=== PATIENT | male | born 1940 | race Caucasian/White ===

== ENCOUNTER 2020-05-27 18:20 | Inpatient (IN) | payer MEDICARE, MEDICAID ==
[~2020-05-27] VITALS: Ht 175.3 cm; Wt 70.2 kg
[2020-05-27] MEDS ORDERED: IRBE300T23 PO (20:57)
[2020-05-27] MEDS ORDERED: QUET25TA5 PO (20:57)
[2020-05-27] MEDS ORDERED: MELA3TAB4 PO (20:57)
[2020-05-27] MEDS ORDERED: THIA100T57 PO (20:57)
[2020-05-27] MEDS ORDERED: FOLI0.8C PO (20:57)
[2020-05-27] MEDS ORDERED: MULT-735 PO (20:57)
[2020-05-27] MEDS ORDERED: HALO1TAB PO (20:57)
[2020-05-27] MEDS ORDERED: METO50TA6 PO (20:57)
[2020-05-27] MEDS ORDERED: MAG HYDROX/AL HYDROX/SIMETH 30 ML ORAL.SUSP PO PRN (22:30)
[2020-05-27] MEDS ORDERED: MAGNESIUM HYDROXIDE 2,400 MG/30 ML ORAL.SUSP. PO PRN (22:30)
[2020-05-27] MEDS ORDERED: ACETAMINOPHEN 325 MG TABLET PO PRN (22:30)
[2020-05-27] MEDS ORDERED: METHYL SALICYLATE/MENTHOL TOPICAL OINTMENT 57GM TUBE. TP PRN (22:30)
[2020-05-27 22:31] VITALS: BP 147/76
--- NOTE | 2020-05-27 22:47 | PDOC ---
Exam Note: Taurus Note: Please also refer to the separate dictated note~for this date of service dictated separately.~Patient seen individually. Discussed the patient with Nursing staff reviewed the chart.~Reviewed interim history and current functioning. Reviewed vital signs,~Labs/ Radiology~and current medications noted below. Continue current treatment with the changes noted in the dictated addendum note Assessment: Vital Signs/I&O: Vital Signs Date Time Temp Pulse Resp B/P (MAP) Pulse Ox O2 Delivery O2 Flow Rate FiO2 05/27/20 22:31 98.5 75 20 147/76 (99) 100 Current Medications: I have reviewed the current psychotropics carefully including drug interactions. Risk benefit ratio favors no change other than as noted in my dictated progress note. TL SAMUEL MD May 27, 2020 22:47
--- NOTE | 2020-05-27 23:11 | NUR ---
Admission Note with Justification for Admission to [facility] Patient admitted to [facility] for protective oversight for emergency stabilization of acute psychiatric crisis. Pt admitted from: [facility] Mode of arrival: Secure Transport Accompanied By: Secure Transport Precipitating behaviors that initiated intake and admission: Pt admitted to [facility] on 05/11 for rhabdo, delirium and DT's (60 yrs of ETOH). Pt sent to [facility] and was there for less than 24hrs d/t combative behaviors. Pt sent back to [facility] on 05/26 where he refused meds, cares, etc. Description of failure of out patient attempts at stabilization in previous setting list behavior and medication trials: multiple PRNs Behaviors and assessment findings upon admission: Pt sedated upon arrival. Pt was given Haldol and Ativan before transport. Plan: Admit for protective oversight for adjustment and stabilization of medications, behaviors and mood. Intense treatment regimen including groups, medication adjustments, therapy, consistent regimen for ADL's, self care, and sleep hygiene. Daily monitoring by Inpatient staff, Psychiatry, and Medical Physician.
[2020-05-27] MEDS ORDERED: HALOPERIDOL 1 MG TABLET PO PRN (23:15)
[2020-05-28 06:35] VITALS: BP 169/80
[2020-05-28] MEDS: METOPROLOL TART IMMED RELEASE 50 MG TABLET PO SCH ×2 (07:54→20:42)
[2020-05-28] MEDS: MULTIVITAMIN with MINERAL TABLET. PO SCH ×2 (07:55→08:55)
[2020-05-28] MEDS: FOLIC ACID 1 MG TABLET PO SCH (07:55)
[2020-05-28] MEDS: THIAMINE 100 MG TABLET. PO SCH (07:55)
[2020-05-28] MEDS: LOSARTAN 50 MG TABLET. PO SCH (07:55)
--- NOTE | 2020-05-28 10:48 | NUR ---
Pt irritable and awake at breakfast. Ate very little. Spoke at length about being able to care for self at home. Pt feels if he could have a family meeting, he could convey that. Pt took am meds with encouragement. Tolerated blood draw.
[2020-05-28 10:49] LABS: BASO % 1 % (0-3); EOS # 0.1 x10^3/uL (0.0-0.7); EOS % 2 % (0-3); HEMATOCRIT 29.8 % (39.0-53.0); LYMPH # 0.2 x10^3/uL (1.0-4.8); LYMPH % 6 % (24-48); MEAN CORPUSCULAR HEMOGLOBIN 32 pg (25-35); MEAN CORPUSCULAR HGB CONC 34 g/dL (31-37); MEAN CORPUSCULAR VOLUME 96 fL (79-100); MONO # 0.4 x10^3/uL (0.0-1.1); MONO % 10 % (0-9); NEUT # 3.3 x10^3uL (1.8-7.7); NEUT % 81 % (31-73); PLATELET COUNT 204 x10^3/uL (140-400); RED CELL DISTRIBUTION WIDTH 15.3 % (11.5-14.5)
[2020-05-28 11:14] LABS: ALBUMIN 2.4 g/dL (3.4-5.0); ALBUMIN/GLOBULIN RATIO 0.6 (1.0-1.7); CALCIUM 8.9 mg/dL (8.5-10.1); CREATININE 1.1 mg/dL (0.7-1.3); GFR 64.2; MAGNESIUM 1.6 mg/dL (1.8-2.4); POTASSIUM 3.3 mmol/L (3.5-5.1); TOTAL PROTEIN 6.6 g/dL (6.4-8.2)
--- NOTE | 2020-05-28 13:26 | CONS ---
DATE OF CONSULTATION: 05/28/2020 REASON FOR CONSULTATION: Medical management. HISTORY OF PRESENT ILLNESS: The patient is an 79-year-old male patient who was admitted to hospital in [facility] through the Emergency Department by wheelchair and from a local [facility] for staff reported him to be extremely agitated, aggressive, and noncompliant. He refused to take his medication, refused to allow them to do vitals, and the patient was placed there a day before admission specifically on 05/25/2020 after hospital stay from 05/14/2020 to 05/25/2020 and prior to being sent to a Skilled Unit, 2 physicians have deemed him to be incapable of making his own decision. He has no complaint at the time of arrival there. He was admitted and was from there transferred [facility] for inpatient psychiatric stabilization, and he is very confused and profoundly demented. Apparently, he has been drinking alcohol for almost 60 years. PAST MEDICAL HISTORY: Significant for hypertension, hyperlipidemia, paroxysmal atrial fibrillation, complete heart block, status post permanent pacemaker. He has aortic stenosis and chronic diastolic congestive heart failure, gastroesophageal reflux disease, prostate cancer and alcohol abuse. PAST SURGICAL HISTORY: Significant for hernia repair and placement of radiation seeds in his prostate for prostate cancer, automatic implantable cardioverter defibrillator placement of [employer] variety on 10/04/2014. He underwent cardiac catheterization, mesenteric arteriogram, left cardiac catheterization and ERCP. FAMILY HISTORY: Positive for cancer in his father. SOCIAL HISTORY: He apparently was living alone. He does not smoke cigarettes; however, he is a heavy alcohol drinker for 60 years. ALLERGIES: He has no known drug allergies. MEDICATIONS: He is currently on following medications: He is on metoprolol tartrate 50 mg twice a day, irbesartan 300 mg once a day, haloperidol 1 mg twice a day as needed, quetiapine fumarate 25 mg at bedtime, folic acid 800 mcg once a day, thiamine 100 mg once a day, multivitamin 1 tablet once a day, and melatonin 6 mg at bedtime. REVIEW OF SYSTEMS: As per history of present illness. PHYSICAL EXAMINATION GENERAL: When I saw him this afternoon, he was resting slightly propped up in bed, in no apparent respiratory distress. He was pale, but no jaundice, cyanosis or thyromegaly. No jugular venous distention. No limb edema. VITAL SIGNS: His heart rate was 78, blood pressure was 169/80, temperature was 97.5, respiratory rate was 18 and his oxygen saturation was 99% on room air. HEAD, EYES, EARS, NOSE AND THROAT: Normocephalic, atraumatic. NECK: Supple. HEART: Showed normal first and second heart sounds. No gallop, rub. He has harsh systolic murmurs best heard in the second right intercostal space radiating to the neck. CHEST: Clear to auscultation. No crepitation or rhonchi. ABDOMEN: Distended, soft, nontender. NEUROLOGIC: He is awake, alert, but definitely confused. All his cranial nerves are intact. He moves all extremities spontaneously, although apparently he is wheelchair bound, although apparently he has been able to use a walker. He was not seen yet by our physical therapist. ASSESSMENT: In summary, this is an 79-year-old male patient who was admitted to [facility] in [place], [place] with acute encephalopathy, delirium versus dementia, alcohol abuse and was transferred to our facility for inpatient psychiatric stabilization. His COVID test was negative. He has multiple other medical problems including: A. Essential hypertension. B. Dyslipidemia. C. Paroxysmal atrial fibrillation. D. Complete heart block, status post permanent pacemaker. E. Aortic stenosis. F. Chronic diastolic congestive heart failure. G. Gastroesophageal reflux disease. H. Prostate cancer. LABORATORY DATA: Showed his white cell count was 4000, hemoglobin 10, hematocrit 30, MCV 96, and platelet count 204,000 with normal manual differential. His chemistry showed a serum sodium 141, potassium 3.3, chloride 107, bicarbonate 23, anion gap of 11, BUN 12, creatinine 1.1, estimated GFR was 64 mL per minute, his glucose 132, calcium was 8.9, magnesium was 1.6. Total bilirubin, AST, ALT, alkaline phosphatase were normal. Total protein was 6.6, albumin was 2.4. The patient obviously showed that his blood pressure is somewhat elevated. He has hypokalemia and hypomagnesemia. PLAN: My plan is to start him on potassium supplement as well as magnesium supplement. I will obviously monitor his blood pressure for at least another 24-48 hours and we could actually add other medication to have a better control of his blood pressure if he continues to be hypertensive. Thank you, Dr. Hauser, for allowing me to participate in the care of this patient. CHANTALE FRERELL MD DR: BHAVIN/teo JOB#: [id number] / [id number]
[2020-05-28] MEDS: MAGNESIUM OXIDE 400 MG TABLET PO SCH ×3 (14:00→21:00)
--- NOTE | 2020-05-28 15:43 | NUR ---
Pt straight cathed for urine sample as he has not been able to void. Some resistance noted. Pt tolerated well.
[2020-05-28 15:55] VITALS: BP 160/83
[2020-05-28 15:56] LABS: BACTERIA,URINE FEW /HPF (0-FEW); BILIRUBIN,URINE NEG (NEG); CLARITY,URINE HAZY; COLOR,URINE YELLOW; GLUCOSE,URINE NEG (NEG); NITRITE,URINE NEG (NEG); SQUAMOUS EPITHELIAL CELL,UR OCC /LPF; UROBILINOGEN,URINE 0.2 mg/dL (0.2 mg/dL); WBC,URINE >40 /HPF (0-4); YEAST,URINE PRESENT /HPF
[2020-05-28 19:29] LABS: THYROID STIM HORMONE (TSH) 3.692 uIU/mL (0.358-3.740)
[2020-05-28] MEDS: MELATONIN 3 MG TABLET PO SCH ×2 (20:43→21:00)
[2020-05-28] MEDS: QUEtiapine 25 MG TABLET. PO SCH ×2 (20:43→21:00)
[2020-05-28] MEDS: POTASSIUM CHLORIDE 20 MEQ TABLET.ER. PO SCH ×2 (20:45→21:00)
--- NOTE | 2020-05-28 22:01 | PDOC ---
Exam Note: Taurus Note: Please also refer to the separate dictated note~for this date of service dictated separately.~Patient seen individually. Discussed the patient with Nursing staff reviewed the chart.~Reviewed interim history and current functioning. Reviewed vital signs,~Labs/ Radiology~and current medications noted below. Continue current treatment with the changes noted in the dictated addendum note Assessment: Vital Signs/I&O: Vital Signs Date Time Temp Pulse Resp B/P (MAP) Pulse Ox O2 Delivery O2 Flow Rate FiO2 05/28/20 20:42 68 160/83 05/28/20 15:55 97.7 18 99 Room Air I & O 05/27/20 05/27/20 05/28/20 15:00 23:00 07:00 Intake Total 0 ml Balance 0 ml Labs: Laboratory Tests Test 05/28/20 10:00 05/28/20 15:30 White Blood Count 4.0 x10^3/uL (4.0-11.0) Red Blood Count 3.10 x10^6/uL (4.30-5.70) L Hemoglobin 10.0 g/dL (13.0-17.5) L Hematocrit 29.8 % (39.0-53.0) L Mean Corpuscular Volume 96 fL (79-100) Mean Corpuscular Hemoglobin 32 pg (25-35) Mean Corpuscular Hemoglobin Concent 34 g/dL (31-37) Red Cell Distribution Width 15.3 % (11.5-14.5) H Platelet Count 204 x10^3/uL (140-400) Neutrophils (%) (Auto) 81 % (31-73) H Lymphocytes (%) (Auto) 6 % (24-48) L Monocytes (%) (Auto) 10 % (0-9) H Eosinophils (%) (Auto) 2 % (0-3) Basophils (%) (Auto) 1 % (0-3) Neutrophils # (Auto) 3.3 x10^3uL (1.8-7.7) Lymphocytes # (Auto) 0.2 x10^3/uL (1.0-4.8) L Monocytes # (Auto) 0.4 x10^3/uL (0.0-1.1) Eosinophils # (Auto) 0.1 x10^3/uL (0.0-0.7) Basophils # (Auto) 0.0 x10^3/uL (0.0-0.2) Sodium Level 141 mmol/L (136-145) Potassium Level 3.3 mmol/L (3.5-5.1) L Chloride Level 107 mmol/L (98-107) Carbon Dioxide Level 23 mmol/L (21-32) Anion Gap 11 (6-14) Blood Urea Nitrogen 12 mg/dL (8-26) Creatinine 1.1 mg/dL (0.7-1.3) Estimated GFR (Cockcroft-Gault) 64.2 BUN/Creatinine Ratio 11 (6-20) Glucose Level 132 mg/dL (70-99) H Calcium Level 8.9 mg/dL (8.5-10.1) Magnesium Level 1.6 mg/dL (1.8-2.4) L Iron Level 30 ug/dL (65-175) L Total Iron Binding Capacity 215 ug/dL (250-450) L Iron Saturation 14 % (15-34) L Total Bilirubin 1.0 mg/dL (0.2-1.0) Aspartate Amino Transferase (AST) 21 U/L (15-37) Alanine Aminotransferase (ALT) 12 U/L (16-63) L Alkaline Phosphatase 68 U/L (46-116) Total Protein 6.6 g/dL (6.4-8.2) Albumin 2.4 g/dL (3.4-5.0) L Albumin/Globulin Ratio 0.6 (1.0-1.7) L Triglycerides Level 87 mg/dL (0-150) Cholesterol Level 173 mg/dL (0-200) LDL Cholesterol, Calculated 110 mg/dL (0-100) H VLDL Cholesterol, Calculated 17 mg/dL (0-40) Non-HDL Cholesterol Calculated 127 mg/dL (0-129) HDL Cholesterol 46 mg/dL (40-60) Cholesterol/HDL Ratio 3.0 Thyroid Stimulating Hormone (TSH) 3.692 uIU/mL (0.358-3.740) Urine Collection Type U cath Urine Color Yellow Urine Clarity Hazy Urine pH 7.0 Urine Specific [place] 1.020 Urine Protein Trace (NEG-TRACE) Urine Glucose (UA) Neg mg/dL (NEG) Urine Ketones (Stick) Neg mg/dL (NEG) Urine Blood Neg (NEG) Urine Nitrite Neg (NEG) Urine Bilirubin Neg (NEG) Urine Urobilinogen Dipstick 0.2 mg/dL (0.2 mg/dL) Urine Leukocyte Esterase Trace (NEG) Urine RBC 1-2 /HPF (0-2) Urine WBC >40 /HPF (0-4) Urine Squamous Epithelial Cells Occ /LPF Urine Bacteria Few /HPF (0-FEW) Urine Yeast Present /HPF Current Medications: Meds: Current Medications Medications (Trade) Dose Ordered Sig/Lit Route PRN Reason Start Time Stop Time Status Last Admin Dose Admin Haloperidol (Haldol) 1 mg PRN BID PRN PO ANXIETY / AGITATION 05/27/20 23:15 05/28/20 18:30 DC 05/28/20 09:15 Melatonin (Melatonin) 6 mg QHS PO 05/28/20 21:00 05/28/20 20:43 Metoprolol Tartrate (Lopressor) 50 mg BID PO 05/28/20 09:00 05/28/20 20:42 Quetiapine Fumarate (SEROquel) 25 mg QHS PO 05/28/20 21:00 05/28/20 20:43 Folic Acid (Folic Acid) 1 mg DAILY PO 05/28/20 09:00 05/28/20 07:55 Losartan Potassium (Cozaar) 100 mg DAILY PO 05/28/20 09:00 05/28/20 07:55 Thiamine HCl (Vitamin B-1) 100 mg DAILY PO 05/28/20 09:00 05/28/20 07:55 Potassium Chloride (Klor-Con) 20 meq BID PO 05/28/20 21:00 05/28/20 20:45 Magnesium Oxide (Magnesium Oxide) 400 mg TID PO 05/28/20 14:00 05/28/20 20:42 I have reviewed the current psychotropics carefully including drug interactions. Risk benefit ratio favors no change other than as noted in my dictated progress note. TL SAMUEL MD May 28, 2020 22:01
--- NOTE | 2020-05-28 23:01 | NUR ---
Nursing Note The patient was located in his room laying in bed for his assessment and medication pass. The patient was resistive with his medication and argumentative during his assessment. The patient displayed difficulty following conversations while talking with this nurse resulting in agitation and confusion. The patient refused several of his medications this shift. The patient is currently asleep laying in his bed.
[2020-05-29 04:06] LABS: HEMOGLOBIN A1C 4.5 % (4.8-5.6)
[2020-05-29 06:40] VITALS: BP 158/89
[2020-05-29 09:00] LABS: CALCIUM 9.3 mg/dL (8.5-10.1); GFR 71.7; POTASSIUM 3.2 mmol/L (3.5-5.1)
[2020-05-29] MEDS: MAGNESIUM OXIDE 400 MG TABLET PO SCH ×3 (09:00→20:50)
[2020-05-29] MEDS: MULTIVITAMIN with MINERAL TABLET. PO SCH (09:00)
[2020-05-29 09:07] LABS: THYROXINE 6.1 ug/dL (4.5-12.0)
[2020-05-29] MEDS: FOLIC ACID 1 MG TABLET PO SCH (09:40)
[2020-05-29] MEDS: POTASSIUM CHLORIDE 20 MEQ TABLET.ER. PO SCH ×3 (09:40→20:50)
[2020-05-29] MEDS: LOSARTAN 50 MG TABLET. PO SCH (09:40)
[2020-05-29] MEDS: THIAMINE 100 MG TABLET. PO SCH (09:41)
[2020-05-29] MEDS: METOPROLOL TART IMMED RELEASE 50 MG TABLET PO SCH ×2 (09:41→20:15)
--- NOTE | 2020-05-29 12:52 | NUR ---
Pt is confused and disorganized. Pt was initially compliant with his medication but then became agitated and threw his cup of water on the floor. He finished taking his medication after encouragement from staff. He was compliant with his assessment.
[2020-05-29 15:46] VITALS: BP 153/87
[2020-05-29] MEDS: DIVALPROEX 125 MG CAP.SPRINK PO SCH (17:22)
--- NOTE | 2020-05-29 17:42 | HP ---
ADMIT DATE: 05/28/2020 PSYCHIATRIC ADMISSION HISTORY/EVALUATION This late entry 05/28/2020 covers elements not covered in my initial note. I met with the patient on for telehealth evaluation evening of 05/28/2020. Discussed with ADRIEL Moore on 2 or 3 occasions including prior to the referral and since then. IDENTIFYING DATA: The patient is an 79-year-old male referred to us from [place], [place] where he presented from [facility] on account of increasing confusion, agitation, refusing medications and care. The patient's behaviors were agitated, aggressive, disruptive at the nursing facility, unmanageable, dangerous within the context of his progressive dementia secondary to alcohol and a failure for outpatient psychiatric interventions. 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 He was unable to continue living at home due to his progressive dementia, confusion, agitation, was transferred to the residential, disruptive, unmanageable and then referred for hospitalization back to the residential; after medical stabilization agitated again and then referred to us from the hospital for psychiatric stabilization. No clear history of bipolar disorder, suicidal or homicidal ideation. He has had some auditory and visual hallucinations as well. PAST PSYCHIATRIC HISTORY: As above. The patient has been hospitalized post-fall on 05/11/2020 and he underwent alcohol detoxification at that time and had a hematoma, which resolved. A CT head shows atrophy and leukomalacia. MEDICAL HISTORY: History of fairly significant alcohol abuse, tachycardia, aortic stenosis, hypertension, paroxysmal atrial contraction, GERD, diverticulosis, history of complete heart block, history of prostate cancer, atrial fibrillation, pacemaker in place. CODE STATUS: DNR. ALLERGIES: Negative. DIET: Cardiac diet. Ambulates in wheelchair, possibly walker at times. CURRENT PSYCHOTROPICS: Haldol 1 mg b.i.d. p.r.n., melatonin 6 mg at bedtime, Seroquel 25 mg at bedtime. FAMILY HISTORY: Noncontributory. SOCIAL HISTORY: The patient's daughter, Sara is his only child and his DPOA. She is an prekindergarten teacher reportedly. 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 They spent a few days, then his and then he came back to this area to be closer to his daughter. MENTAL STATUS EXAMINATION: The patient was seen on telehealth rounds evening of 05/28/2020. 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 He stated he did need to remember those things. Speech has some latency, often responses monosyllabic. Insight, judgment, recent and remote memory, attention, concentration, fund of knowledge poor, consistent with his diagnosis. REACTION TO HOSPITALIZATION: The patient oblivious of it. ASSETS: Supportive daughter. 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 Rest as above. PLAN: Admit to Geropsychiat[facility] Unit [facility]. I will see the patient daily individually from a psychiatric standpoint. Medical followup per Dr. Vega/Dr. Sutton. Continue the patient on his current psychotropics. Start Zyprexa 2.5 mg q. 2 hours p.r.n. psychosis, agitation, max 10 mg in 24 hours. Treat the UTI, if culture positive, defer to Dr. Vega for this. Consider Depakote as a mood stabilizer. Maintain melatonin and Seroquel at the current dosage for now. ESTIMATED LENGTH OF STAY: 10-12 days. DISPOSITION: Back to residential when stable. MAN Nancy SAMUEL MD DR: MARLEEN/teo JOB#: [id number] / [id number]
--- NOTE | 2020-05-29 18:29 | NUR ---
Pt urinated in his brief. When staff attempted to ambulate pt from his bed to the bathroom pt was resistive with staff but after encouragement pt did use the restroom. Nurse and TECHNICAL SERVICE SPECIALIST encouraged pt to sit in his chair as his back was red. Nurse and TECHNICAL SERVICE SPECIALIST educated pt on pressure ulcer prevention. Pt was disorganized and demanded to go back to bed and attempted to ambulate unassisted. Nurse again reminded pt of importance of changing positions and the dr was coming to see him shortly. The pt struck out at the nurse with a closed fist and demanded to go to bed. Nurse redirected pt. Dr. Hauser here for rounds and witnessed pts outburst. Pt continued to be irritable and restless. Pt is delusional at this time AEB him stating he was "just trying to figure out the financials of this building." He also made statements regarding Dr. Hauser. "I know his brain but I don't know his brain." Staff redirected pt back to bed. When nurse come back to check on pt, pt stated "why are you calling the police. Nurse reassured that the police were not being call that she (the nurse) was just bring the pt fresh water.
[2020-05-29] MEDS: QUEtiapine 25 MG TABLET. PO SCH (20:15)
[2020-05-29] MEDS: MELATONIN 3 MG TABLET PO SCH (20:15)
--- NOTE | 2020-05-29 22:20 | PDOC ---
Exam Note: Taurus Note: Please also refer to the separate dictated note~for this date of service dictated separately.~Patient seen individually. Discussed the patient with Nursing staff reviewed the chart.~Reviewed interim history and current functioning. Reviewed vital signs,~Labs/ Radiology~and current medications noted below. Continue current treatment with the changes noted in the dictated addendum note Assessment: Vital Signs/I&O: Vital Signs Date Time Temp Pulse Resp B/P (MAP) Pulse Ox O2 Delivery O2 Flow Rate FiO2 05/29/20 20:15 70 153/87 05/29/20 20:08 97.9 100 05/29/20 15:46 18 05/28/20 15:55 Room Air I & O 05/28/20 05/28/20 05/29/20 15:00 23:00 07:00 Intake Total 480 ml 300 ml Output Total 150 ml Balance 480 ml 150 ml Labs: Laboratory Tests Test 05/29/20 08:45 Sodium Level 140 mmol/L (136-145) Potassium Level 3.2 mmol/L (3.5-5.1) L Chloride Level 105 mmol/L (98-107) Carbon Dioxide Level 27 mmol/L (21-32) Anion Gap 8 (6-14) Blood Urea Nitrogen 10 mg/dL (8-26) Creatinine 1.0 mg/dL (0.7-1.3) Estimated GFR (Cockcroft-Gault) 71.7 Glucose Level 98 mg/dL (70-99) Calcium Level 9.3 mg/dL (8.5-10.1) Current Medications: Meds: Current Medications Medications (Trade) Dose Ordered Sig/Lit Route PRN Reason Start Time Stop Time Status Last Admin Dose Admin Divalproex Sodium (Depakote Sprinkles) 125 mg 0900,1700 PO 05/29/20 17:00 05/29/20 17:22 Potassium Chloride (Klor-Con) 20 meq TID PO 05/29/20 17:45 05/29/20 20:50 I have reviewed the current psychotropics carefully including drug interactions. Risk benefit ratio favors no change other than as noted in my dictated progress note. Diagnosis: Problems: (1) Major neurocognitive disorder, due to vascular disease, with behavioral disturbance, mild (2) Dementia, vascular, with delusions (3) Dementia, vascular, with depression (4) Anxiety disorder, unspecified (5) Impulse control disorder, unspecified (6) Major neurocognitive disorder (7) History of alcohol dependence TL SAMUEL MD May 29, 2020 22:20
--- NOTE | 2020-05-29 22:46 | NUR ---
Pt laying in his bed all evening. When approached, pt starting yelling "no, no, no." Pt pulled the covers up over his face and said he was not going to take his medication. Pt's meds were then crushed and administered sublingually with much resistance from pt. Later in the evening, pt was restless in bed, had taken off his gown and brief. Pt redressed and repositioned in bed with bed alarm on. Will continue to monitor.
[2020-05-30 06:22] VITALS: BP 169/85
[2020-05-30] MEDS: METOPROLOL TART IMMED RELEASE 50 MG TABLET PO SCH ×2 (08:55→20:37)
[2020-05-30] MEDS: MULTIVITAMIN with MINERAL TABLET. PO SCH (08:56)
[2020-05-30] MEDS: THIAMINE 100 MG TABLET. PO SCH (08:56)
[2020-05-30] MEDS: DIVALPROEX 125 MG CAP.SPRINK PO SCH ×2 (08:56→17:58)
[2020-05-30] MEDS: FOLIC ACID 1 MG TABLET PO SCH (08:56)
[2020-05-30] MEDS: LOSARTAN 50 MG TABLET. PO SCH (08:56)
[2020-05-30] MEDS: MAGNESIUM OXIDE 400 MG TABLET PO SCH ×3 (08:57→20:24)
[2020-05-30] MEDS: POTASSIUM CHLORIDE 20 MEQ TABLET.ER. PO SCH ×4 (08:57→20:24)
--- NOTE | 2020-05-30 12:00 | NUR ---
ACTIVITY THERAPY ASSESSMENT completed based on notes, observation, and interview. Pt was sitting in his bed eating lunch. AT asked the pt if she could ask some question which he said would be fine. Pt was unaware of current location and reason for admission. AT then asked pt if he knew what city he was in to which he replied "every city is [place] city." Pt was confused, disorganized, and unpleasant at times. AT asked pt if he was and had children and he said yes. Pt then states "when the wind comes, is that the real world?" When AT asked about his children he said someone has children and they run around and make a mess. He said that you tell children to do the right thing and they do the wrong thing. AT asked pt if he could see and hear well and he said he can see very well the future and past but its what is in the middle he wasn't sure about. When AT asked pt what he liked to do with his family he said he would probably tell them to get the hell out. AT used this that questions to identify leisure activities. Pt likes to watch TV, studying, and reading. The pt described himself as studious. AT offered to get pt a book and he said "get me a book by Franky Noel himself." AT asked if there was anything else he wanted to say or have any further questions and he said no and that he didn't care about AT. Initial goal is aimed to increase time management and socialization skills. Pt will participate in one group or individual Activity Therapy session per week.
--- NOTE | 2020-05-30 13:25 | NUR ---
SW attempted to contact pt step-daughter to gather information on pt and to complete the PSA. SW will try back at another time to have this completed.
--- NOTE | 2020-05-30 14:36 | NUR ---
Patient suspicious and refusing to take his potassium. He asked what each medication is and then looks at pill and than asks about it again. Patients current potassium level is 3.2. Patient refused physical exam and told nurse to leave his room. Patient spit his mulitvitamin into his water. He is oriented to name and date of . He said he has "no idea" to date and location and then told nurse to "get out of my house". At this time patient is threatening EMAIL MARKETING INTERN, trying to pull her into his bed. Nurse will give patient PRN zydis per order for his agitation.
[2020-05-30 15:15] VITALS: BP 167/91
--- NOTE | 2020-05-30 16:04 | NUR ---
When approached to attempt again at giving medications, pt was refusing to let this nurse scan his arm band. He was trying to grab then scanner and pulling his arm away. Pt eventually complied in letting his arm band be scanned. Pt then continuously asked what the medications were for, and asking to see them. On multiple occasions, pt slapped this nurse's arm and hand to try and spill the pills out of the cup. After much redirection, pt did eventually comply in taking his meds whole. Pt was also given PRN zydis for agitation. Will continue to monitor.
[2020-05-30] MEDS: MELATONIN 3 MG TABLET PO SCH (20:24)
[2020-05-30] MEDS: QUEtiapine 25 MG TABLET. PO SCH (20:24)
[2020-05-30] MEDS: POTASSIUM BICARB 20 MEQ EFFERVESCENT TABLET. PO SCH (20:38)
--- NOTE | 2020-05-30 21:54 | PDOC ---
Exam Note: Taurus Note: Please also refer to the separate dictated note~for this date of service dictated separately.~Patient seen individually. Discussed the patient with Nursing staff reviewed the chart.~Reviewed interim history and current functioning. Reviewed vital signs,~Labs/ Radiology~and current medications noted below. Continue current treatment with the changes noted in the dictated addendum note Assessment: Vital Signs/I&O: Vital Signs Date Time Temp Pulse Resp B/P (MAP) Pulse Ox O2 Delivery O2 Flow Rate FiO2 05/30/20 20:37 76 167/91 05/30/20 15:15 98.0 24 95 05/28/20 15:55 Room Air I & O 05/29/20 05/29/20 05/30/20 15:00 23:00 07:00 Intake Total 360 ml 240 ml Balance 360 ml 240 ml Current Medications: I have reviewed the current psychotropics carefully including drug interactions. Risk benefit ratio favors no change other than as noted in my dictated progress note. Diagnosis: Problems: (1) Impulse control disorder, unspecified (2) Anxiety disorder, unspecified (3) Dementia, vascular, with depression (4) Dementia, vascular, with delusions (5) Major neurocognitive disorder (6) Major neurocognitive disorder, due to vascular disease, with behavioral disturbance, mild (7) History of alcohol dependence TL SAMUEL MD May 30, 2020 21:54
--- NOTE | 2020-05-30 23:55 | NUR ---
This evening pt has been in bed. He took meds whole without difficulty. He was cooperative with assessment. He said he is here because he had call from God to come here and see if we can help him. He has had no behaviors tonight.
[2020-05-31 06:30] VITALS: BP 155/94
[2020-05-31] MEDS: DIVALPROEX 125 MG CAP.SPRINK PO SCH ×2 (09:08→17:26)
[2020-05-31] MEDS: POTASSIUM BICARB 20 MEQ EFFERVESCENT TABLET. PO SCH ×2 (09:08→19:48)
[2020-05-31] MEDS: MAGNESIUM OXIDE 400 MG TABLET PO SCH ×3 (09:08→19:48)
[2020-05-31] MEDS: FOLIC ACID 1 MG TABLET PO SCH (09:09)
[2020-05-31] MEDS: METOPROLOL TART IMMED RELEASE 50 MG TABLET PO SCH ×2 (09:09→19:48)
[2020-05-31] MEDS: LOSARTAN 50 MG TABLET. PO SCH (09:09)
[2020-05-31] MEDS: MULTIVITAMIN with MINERAL TABLET. PO SCH (09:09)
[2020-05-31] MEDS: THIAMINE 100 MG TABLET. PO SCH (09:09)
--- NOTE | 2020-05-31 12:57 | PN ---
DATE: 05/29/2020 PSYCHIATRIC PROGRESS NOTE This late entry 05/29/2020 covers elements not covered in my initial note. SUBJECTIVE: I met with the patient at some length individually in the evening. Earlier in the day, discussed with the patient that treatment team meeting with Virgen Eid and social media community manager and ADRIEL Dunne. The patient's appetite is 75%, slept 6 hours previous night. He has been irritable with peers, irritable with cares, refusing medications. He refused potassium being supplemented for his serum potassium 3.2. He may have a UTI. Culture is awaited. AST 21, ALT 12, did receive Zyprexa x 1 p.r.n. for psychosis, agitation. REVIEW OF SYSTEMS: No CV, , pulmonary, eye, ENT system symptoms on review. Reliability poor. Gait unsteady, in wheelchair. MENTAL STATUS EXAM: Oriented to himself. Insight, judgment, recent and remote memory, attention, concentration, fund of knowledge poor, consistent with his diagnosis. IMPRESSION: Major neurocognitive disorder, Alzheimer, vascular with delusion, depression, behavioral disturbance; anxiety disorder, unspecified; impulse control disorder, unspecified; major neurocognitive disorder, possibly secondary to alcohol with delusion, depression, behavioral disturbance. PLAN: Continue current psychotropics. Start Depakote Sprinkles 125 mg 9 a.m., 5:00 p.m. Check CBC, CMP, valproic acid level in 3 days. Treat the UTI if culture positive. Continue rest unchanged for now. TL SAMUEL MD DR: MARLEEN/teo JOB#: [id number] / [id number]
--- NOTE | 2020-05-31 13:23 | PN ---
DATE: 05/30/2020 PSYCHIATRIC PROGRESS NOTE This late entry 05/30/2020 covers elements not covered in my initial note. SUBJECTIVE: I met with the patient evening of 05/30/2020 on telehealth rounds. Per ADRIEL Harding, the patient slept 5-1/2 hours previous night. He has been somewhat "grouchy" in the morning, refused to have his arm band scan during medications. His reviewed information from family indicates that he was living alone at home prior to admission. He is quite compromised cognitively to safely do this, quite resistive to cares medications, refused to cooperate with staff and tried to reportedly pull a female clinical nursing instructor into bed with him per nursing report. He is quite dismissive as I met with him individually on telehealth rounds, paranoid, confused, unaware of the year or the president. REVIEW OF SYSTEMS: No CV, , pulmonary, eye, ENT system symptoms on review. Reliability poor. Gait unsteady, in wheelchair. MENTAL STATUS EXAM: Oriented to himself. Insight, judgment, recent and remote memory, attention, concentration, fund of knowledge poor, consistent with his diagnosis. IMPRESSION: Major neurocognitive disorder, multifactorial, probably alcohol, Alzheimer, vascular with delusion, depression, behavioral disturbance; anxiety disorder, unspecified; impulse control disorder, unspecified. Rest unchanged. PLAN: Continue current psychotropics. Depakote Sprinkles were initiated. Maintain melatonin, Seroquel 25 mg at bedtime, Zyprexa p.r.n. Rest unchanged for now. TL SAMUEL MD DR: MARLEEN/teo JOB#: [id number] / [id number]
--- NOTE | 2020-05-31 15:02 | NUR ---
Nursing note: Pt was in his room for morning med pass and assessment. He was resistive with taking his meds, asking what they were for and asking to see them. When given an answer, pt was accepting and said he would take his meds, but then quickly changed his mind and asked the same questions. After some time he was eventually compliant in taking his meds whole. This afternoon, pt took his meds with much less difficulty. He has been up in a chair all day and has been assisted by staff x2 with walking to the bathroom. He is currently sitting quietly in his room. Will continue to monitor.
[2020-05-31 15:50] VITALS: BP 144/84
[2020-05-31] MEDS: MELATONIN 3 MG TABLET PO SCH (19:48)
[2020-05-31] MEDS: QUEtiapine 25 MG TABLET. PO SCH (19:49)
--- NOTE | 2020-05-31 22:02 | PDOC ---
Exam Note: Taurus Note: Please also refer to the separate dictated note~for this date of service dictated separately.~Patient seen individually. Discussed the patient with Nursing staff reviewed the chart.~Reviewed interim history and current functioning. Reviewed vital signs,~Labs/ Radiology~and current medications noted below. Continue current treatment with the changes noted in the dictated addendum note Assessment: Vital Signs/I&O: Vital Signs Date Time Temp Pulse Resp B/P (MAP) Pulse Ox O2 Delivery O2 Flow Rate FiO2 05/31/20 21:05 98.5 99 05/31/20 19:48 65 144/84 05/31/20 15:50 20 05/31/20 06:30 Room Air I & O 05/30/20 05/30/20 05/31/20 15:00 23:00 07:00 Intake Total 740 ml 240 ml Balance 740 ml 240 ml Current Medications: I have reviewed the current psychotropics carefully including drug interactions. Risk benefit ratio favors no change other than as noted in my dictated progress note. Diagnosis: Problems: (1) Impulse control disorder, unspecified (2) Anxiety disorder, unspecified (3) Dementia, vascular, with depression (4) Dementia, vascular, with delusions (5) Major neurocognitive disorder (6) Major neurocognitive disorder, due to vascular disease, with behavioral disturbance, mild (7) History of alcohol dependence TL SAMUEL MD May 31, 2020 22:02
--- NOTE | 2020-05-31 23:55 | NUR ---
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
[2020-06-01 05:41] VITALS: BP 130/66
[2020-06-01] MEDS: POTASSIUM BICARB 20 MEQ EFFERVESCENT TABLET. PO SCH ×2 (08:54→20:37)
[2020-06-01] MEDS: LOSARTAN 50 MG TABLET. PO SCH (08:55)
[2020-06-01] MEDS: MULTIVITAMIN with MINERAL TABLET. PO SCH (08:55)
[2020-06-01] MEDS: THIAMINE 100 MG TABLET. PO SCH (08:55)
[2020-06-01] MEDS: DIVALPROEX 125 MG CAP.SPRINK PO SCH ×2 (08:55→17:27)
[2020-06-01] MEDS: MAGNESIUM OXIDE 400 MG TABLET PO SCH ×3 (08:55→20:37)
[2020-06-01] MEDS: METOPROLOL TART IMMED RELEASE 50 MG TABLET PO SCH ×2 (08:55→20:37)
[2020-06-01] MEDS: FOLIC ACID 1 MG TABLET PO SCH (08:55)
--- NOTE | 2020-06-01 14:22 | NUR ---
Nursing note: Pt sitting in chair in his room when approached for morning med pass and assessment. Pt originally pleasant at start of interaction, but quickly became irritable fci through med pass and began swatting at this nurse's arms and knocking the pills away. He was compliant in taking half of his pills right away, but did not want to finish the second half. The rest were crushed and mixed with his juice that also contained his effervescent potassium, which he was compliant in drinking. Pt did much better with afternoon med pass and took them with no difficulty. He is currently sitting up in his chair. Will continue to monitor.
[2020-06-01 15:35] VITALS: BP 177/68
[2020-06-01] MEDS: MELATONIN 3 MG TABLET PO SCH (20:37)
[2020-06-01] MEDS: QUEtiapine 25 MG TABLET. PO SCH (20:38)
[2020-06-01] MEDS: NYSTATIN 100,000 UNIT/GM TOPICAL CREAM 15GM TUBE. TP SCH (21:00)
--- NOTE | 2020-06-01 22:04 | PDOC ---
Exam Note: Taurus Note: Please also refer to the separate dictated note~for this date of service dictated separately.~Patient seen individually. Discussed the patient with Nursing staff reviewed the chart.~Reviewed interim history and current functioning. Reviewed vital signs,~Labs/ Radiology~and current medications noted below. Continue current treatment with the changes noted in the dictated addendum note Assessment: Vital Signs/I&O: Vital Signs Date Time Temp Pulse Resp B/P (MAP) Pulse Ox O2 Delivery O2 Flow Rate FiO2 06/01/20 20:42 98.4 100 06/01/20 20:37 89 177/68 06/01/20 15:35 20 05/31/20 06:30 Room Air I & O 05/31/20 05/31/20 06/01/20 15:00 23:00 07:00 Intake Total 600 ml 480 ml Balance 600 ml 480 ml Current Medications: I have reviewed the current psychotropics carefully including drug interactions. Risk benefit ratio favors no change other than as noted in my dictated progress note. Diagnosis: Problems: (1) Impulse control disorder, unspecified (2) Anxiety disorder, unspecified (3) Dementia, vascular, with depression (4) Dementia, vascular, with delusions (5) Major neurocognitive disorder (6) Major neurocognitive disorder, due to vascular disease, with behavioral disturbance, mild (7) History of alcohol dependence TL SAMUEL MD Jun 01, 2020 22:04
[2020-06-02 06:51] LABS: BASO % 1 % (0-3); EOS # 0.1 x10^3/uL (0.0-0.7); EOS % 5 % (0-3); HEMOGLOBIN 9.8 g/dL (13.0-17.5); LYMPH # 0.5 x10^3/uL (1.0-4.8); LYMPH % 17 % (24-48); MEAN CORPUSCULAR HEMOGLOBIN 33 pg (25-35); MEAN CORPUSCULAR HGB CONC 34 g/dL (31-37); MEAN CORPUSCULAR VOLUME 96 fL (79-100); MONO # 0.4 x10^3/uL (0.0-1.1); MONO % 12 % (0-9); NEUT # 2.1 x10^3uL (1.8-7.7); NEUT % 65 % (31-73); PLATELET COUNT 201 x10^3/uL (140-400); RED BLOOD COUNT 3.02 x10^6/uL (4.30-5.70); RED CELL DISTRIBUTION WIDTH 15.1 % (11.5-14.5); WHITE BLOOD COUNT 3.2 x10^3/uL (4.0-11.0)
[2020-06-02 06:56] LABS: ALBUMIN 2.4 g/dL (3.4-5.0); ALBUMIN/GLOBULIN RATIO 0.6 (1.0-1.7); ALK PHOS 77 U/L (46-116); ALT (SGPT) 16 U/L (16-63); ANION GAP 6 (6-14); AST (SGOT) 22 U/L (15-37); BLOOD UREA NITROGEN 13 mg/dL (8-26); BUN/CREATININE RATIO 12 (6-20); CALCIUM 9.4 mg/dL (8.5-10.1); CARBON DIOXIDE 29 mmol/L (21-32); CHLORIDE 108 mmol/L (98-107); CREATININE 1.1 mg/dL (0.7-1.3); GFR 64.2; GLUCOSE 78 mg/dL (70-99); POTASSIUM 4.4 mmol/L (3.5-5.1); SODIUM 143 mmol/L (136-145); TOTAL BILIRUBIN 0.9 mg/dL (0.2-1.0); TOTAL PROTEIN 6.7 g/dL (6.4-8.2)
[2020-06-02 07:00] LABS: VAL ACID 22 mcg/mL (50-100)
[2020-06-02 07:02] VITALS: BP 121/70
[2020-06-02] MEDS: FOLIC ACID 1 MG TABLET PO SCH (08:37)
[2020-06-02] MEDS: METOPROLOL TART IMMED RELEASE 50 MG TABLET PO SCH ×2 (08:37→20:49)
[2020-06-02] MEDS: POTASSIUM BICARB 20 MEQ EFFERVESCENT TABLET. PO SCH ×2 (08:37→20:48)
[2020-06-02] MEDS: MAGNESIUM OXIDE 400 MG TABLET PO SCH ×3 (08:38→20:49)
[2020-06-02] MEDS: DIVALPROEX 125 MG CAP.SPRINK PO SCH ×2 (08:38→17:17)
[2020-06-02] MEDS: MULTIVITAMIN with MINERAL TABLET. PO SCH ×2 (08:38→09:00)
[2020-06-02] MEDS: THIAMINE 100 MG TABLET. PO SCH (08:38)
[2020-06-02] MEDS: LOSARTAN 50 MG TABLET. PO SCH (08:38)
[2020-06-02] MEDS: NYSTATIN 100,000 UNIT/GM TOPICAL CREAM 15GM TUBE. TP SCH ×2 (08:39→20:47)
[2020-06-02 16:16] VITALS: BP 164/74
--- NOTE | 2020-06-02 16:34 | NUR ---
Nursing note: Pt in his room for morning meds and assessment. 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 He was compliant with his meds whole with much encouragement. Pt refused to take his multivitamin. After explanation of why he should take it, pt balled up his fists and yelled "you better get out of here before you get hurt!". Attempted to give him the vitamin several times throughout the day, but each time refused to take it, though he would take his other meds with not as much difficulty. Pt has been sitting up in his chair for most of the day, but is currently laying in his bed. Will continue to monitor.
[2020-06-02] MEDS: QUEtiapine 25 MG TABLET. PO SCH (20:47)
[2020-06-02] MEDS: MELATONIN 3 MG TABLET PO SCH (20:49)
--- NOTE | 2020-06-02 22:00 | NUR ---
Patient is located in his room on assumption of care, awake in his bed. He is rambling nonsensically about the guest services lead and the constitution. Compliant with assessments. He did question his medications, but was compliant in taking them whole with a little encouragement. Denies any pain or discomfort. Denies SI/HI. No agitation. Patient appears to be sleeping comfortably at present time.
--- NOTE | 2020-06-02 22:20 | PDOC ---
Exam Note: Taurus Note: Please also refer to the separate dictated note~for this date of service dictated separately.~Patient seen individually. Discussed the patient with Nursing staff reviewed the chart.~Reviewed interim history and current functioning. Reviewed vital signs,~Labs/ Radiology~and current medications noted below. Continue current treatment with the changes noted in the dictated addendum note Assessment: Vital Signs/I&O: Vital Signs Date Time Temp Pulse Resp B/P (MAP) Pulse Ox O2 Delivery O2 Flow Rate FiO2 06/02/20 20:49 63 164/74 06/02/20 16:16 97.6 19 98 05/31/20 06:30 Room Air I & O 06/01/20 06/01/20 06/02/20 15:00 23:00 07:00 Intake Total 440 ml 240 ml Balance 440 ml 240 ml Labs: Laboratory Tests Test 06/02/20 06:32 White Blood Count 3.2 x10^3/uL (4.0-11.0) L Red Blood Count 3.02 x10^6/uL (4.30-5.70) L Hemoglobin 9.8 g/dL (13.0-17.5) L Hematocrit 29.0 % (39.0-53.0) L Mean Corpuscular Volume 96 fL (79-100) Mean Corpuscular Hemoglobin 33 pg (25-35) Mean Corpuscular Hemoglobin Concent 34 g/dL (31-37) Red Cell Distribution Width 15.1 % (11.5-14.5) H Platelet Count 201 x10^3/uL (140-400) Neutrophils (%) (Auto) 65 % (31-73) Lymphocytes (%) (Auto) 17 % (24-48) L Monocytes (%) (Auto) 12 % (0-9) H Eosinophils (%) (Auto) 5 % (0-3) H Basophils (%) (Auto) 1 % (0-3) Neutrophils # (Auto) 2.1 x10^3uL (1.8-7.7) Lymphocytes # (Auto) 0.5 x10^3/uL (1.0-4.8) L Monocytes # (Auto) 0.4 x10^3/uL (0.0-1.1) Eosinophils # (Auto) 0.1 x10^3/uL (0.0-0.7) Basophils # (Auto) 0.0 x10^3/uL (0.0-0.2) Sodium Level 143 mmol/L (136-145) Potassium Level 4.4 mmol/L (3.5-5.1) Chloride Level 108 mmol/L (98-107) H Carbon Dioxide Level 29 mmol/L (21-32) Anion Gap 6 (6-14) Blood Urea Nitrogen 13 mg/dL (8-26) Creatinine 1.1 mg/dL (0.7-1.3) Estimated GFR (Cockcroft-Gault) 64.2 BUN/Creatinine Ratio 12 (6-20) Glucose Level 78 mg/dL (70-99) Calcium Level 9.4 mg/dL (8.5-10.1) Total Bilirubin 0.9 mg/dL (0.2-1.0) Aspartate Amino Transferase (AST) 22 U/L (15-37) Alanine Aminotransferase (ALT) 16 U/L (16-63) Alkaline Phosphatase 77 U/L (46-116) Total Protein 6.7 g/dL (6.4-8.2) Albumin 2.4 g/dL (3.4-5.0) L Albumin/Globulin Ratio 0.6 (1.0-1.7) L Valproic Acid Level 22 mcg/mL (50-100) L Valproic Acid Last Dose Date 06/01/2020 Valproic Acid Last Dose Time 1700 Current Medications: I have reviewed the current psychotropics carefully including drug interactions. Risk benefit ratio favors no change other than as noted in my dictated progress note. Diagnosis: Problems: (1) Impulse control disorder, unspecified (2) Anxiety disorder, unspecified (3) Dementia, vascular, with depression (4) Dementia, vascular, with delusions (5) Major neurocognitive disorder (6) Major neurocognitive disorder, due to vascular disease, with behavioral disturbance, mild (7) History of alcohol dependence TL SAMUEL MD Jun 02, 2020 22:20
--- NOTE | 2020-06-02 22:21 | PN ---
DATE: 05/31/2020 PSYCHIATRIC PROGRESS NOTE This late entry 05/31/2020 covers the elements not covered in my initial note. SUBJECTIVE: I met with the patient in the evening of 05/31/2020. The patient has been withdrawn, somewhat abrasive, paranoid, confused. REVIEW OF SYSTEMS: Ambulation impaired, in wheelchair. No CV, , pulmonary, eye, ENT system symptoms on review. Reliability poor. MENTAL STATUS EXAM: Oriented to himself. Insight, judgment, recent and remote memory, attention, concentration, fund of knowledge poor, consistent with his diagnosis mentioned in my initial note. PLAN: No change from initial note. MAN Nancy SAMUEL MD DR: MARLEEN/teo JOB#: [id number] / [id number]
--- NOTE | 2020-06-02 22:25 | PN ---
DATE: 06/02/2020 PSYCHIATRIC PROGRESS NOTE This note covers elements not covered in my initial note 06/02/2020. SUBJECTIVE: The patient was seen on telehealth rounds in the evening. Per ADRIEL Caballero, the patient slept 7 hours previous night. Valproic acid level subtherapeutic at 22 on Depakote Sprinkle 125 mg twice a day. We will increase to 250 mg twice a day. Check CBC, CMP, valproic acid level in 3 days. He was resistive to taking medications, took it later in the day. He did ball up his fist towards nursing staff, but did not hit nursing staff. REVIEW OF SYSTEMS: No CV, , pulmonary, eye, ENT system symptoms on review. Reliability poor. Gait unsteady. MENTAL STATUS EXAM: Oriented to himself. Insight, judgment, recent and remote memory, attention, concentration, fund of knowledge poor, consistent with his diagnosis mentioned in the initial note. PLAN: No change from initial note. TL SAMUEL MD DR: MARLEEN/teo JOB#: [id number] / [id number]
--- NOTE | 2020-06-02 22:59 | PN ---
DATE: 06/01/2020 PSYCHIATRIC PROGRESS NOTE This late entry 06/01/2020 covers elements not covered in my initial note. SUBJECTIVE: I met with the patient evening of 06/01/2020. The patient slept 6-3/4 hours previous night per ADRIEL Caballero. He tried to hit the medications out of the hand of nursing staff, took it later with a drink. REVIEW OF SYSTEMS: Ambulation impaired. No CV, , pulmonary, eye system symptoms on review. Reliability poor. MENTAL STATUS EXAM: Oriented to himself. Insight, judgment, recent and remote memory, attention, concentration, fund of knowledge poor, consistent with his diagnosis mentioned in my initial note. PLAN: No change from initial note. MAN Nancy SAMUEL MD DR: MARLEEN/teo JOB#: [id number] / [id number]
[2020-06-03 05:55] VITALS: BP 118/73
[2020-06-03] MEDS: FOLIC ACID 1 MG TABLET PO SCH (08:42)
[2020-06-03] MEDS: THIAMINE 100 MG TABLET. PO SCH (08:42)
[2020-06-03] MEDS: DIVALPROEX 125 MG CAP.SPRINK PO SCH ×2 (08:42→17:39)
[2020-06-03] MEDS: MAGNESIUM OXIDE 400 MG TABLET PO SCH ×3 (08:42→20:54)
[2020-06-03] MEDS: LOSARTAN 50 MG TABLET. PO SCH (08:43)
[2020-06-03] MEDS: METOPROLOL TART IMMED RELEASE 50 MG TABLET PO SCH ×2 (08:43→20:53)
[2020-06-03] MEDS: POTASSIUM BICARB 20 MEQ EFFERVESCENT TABLET. PO SCH ×2 (08:44→20:53)
[2020-06-03] MEDS: NYSTATIN 100,000 UNIT/GM TOPICAL CREAM 15GM TUBE. TP SCH ×2 (08:44→20:57)
[2020-06-03] MEDS: MULTIVITAMIN PO SCH (08:49)
[2020-06-03] MEDS: [UNRECOGNIZED DRUG - OTHER] PO SCH (08:49)
--- NOTE | 2020-06-03 10:26 | NUR ---
Patient willing to take medication once people stopped walking past his room. Patient did not want to eat at the time this nurse set up his breakfast tray. Patient suspicious of staff but after a conversation he was able to be calmed.
[2020-06-03 16:16] VITALS: BP 151/79
[2020-06-03] MEDS: MELATONIN 3 MG TABLET PO SCH (20:52)
[2020-06-03] MEDS: QUEtiapine 25 MG TABLET. PO SCH (20:54)
--- NOTE | 2020-06-03 22:00 | NUR ---
Patient is located in his room on assumption of care, awake in bed. He is flat, somewhat irritable. Compliant with assessments and medications taken whole with encouragement and explanation of what the medications are for. He can be snarky and demanding at times, stating to this nurse "How about no? I don't think I'm taking those right now, why don't you get the hell out already?" Patient did end up taking all of his medications with encouragement. He denies any pain or discomfort. Denies SI. Patient appears to be sleeping comfortably at present time.
--- NOTE | 2020-06-03 22:04 | PDOC ---
Exam Note: Taurus Note: Please also refer to the separate dictated note~for this date of service dictated separately.~Patient seen individually. Discussed the patient with Nursing staff reviewed the chart.~Reviewed interim history and current functioning. Reviewed vital signs,~Labs/ Radiology~and current medications noted below. Continue current treatment with the changes noted in the dictated addendum note Assessment: Vital Signs/I&O: Vital Signs Date Time Temp Pulse Resp B/P (MAP) Pulse Ox O2 Delivery O2 Flow Rate FiO2 06/03/20 20:53 69 151/79 06/03/20 16:16 97.4 18 97 Room Air I & O 06/02/20 06/02/20 06/03/20 15:00 23:00 07:00 Intake Total 240 ml 700 ml Balance 240 ml 700 ml Current Medications: Meds: Current Medications Medications (Trade) Dose Ordered Sig/Lit Route PRN Reason Start Time Stop Time Status Last Admin Dose Admin Divalproex Sodium (Depakote Sprinkles) 250 mg 0900,1700 PO 06/03/20 09:00 06/03/20 17:39 I have reviewed the current psychotropics carefully including drug interactions. Risk benefit ratio favors no change other than as noted in my dictated progress note. Diagnosis: Problems: (1) Impulse control disorder, unspecified (2) Anxiety disorder, unspecified (3) Dementia, vascular, with depression (4) Dementia, vascular, with delusions (5) Major neurocognitive disorder (6) Major neurocognitive disorder, due to vascular disease, with behavioral di sturbance, mild (7) History of alcohol dependence TL SAMUEL MD Jun 03, 2020 22:04
[2020-06-04 05:25] VITALS: BP 154/84
[2020-06-04] MEDS: [UNRECOGNIZED DRUG - OTHER] PO SCH (09:00)
[2020-06-04] MEDS: MULTIVITAMIN PO SCH (09:00)
[2020-06-04] MEDS: NYSTATIN 100,000 UNIT/GM TOPICAL CREAM 15GM TUBE. TP SCH ×2 (09:00→21:00)
[2020-06-04] MEDS: THIAMINE 100 MG TABLET. PO SCH (09:19)
[2020-06-04] MEDS: POTASSIUM BICARB 20 MEQ EFFERVESCENT TABLET. PO SCH ×2 (09:19→20:06)
[2020-06-04] MEDS: MAGNESIUM OXIDE 400 MG TABLET PO SCH ×3 (09:20→20:05)
[2020-06-04] MEDS: METOPROLOL TART IMMED RELEASE 50 MG TABLET PO SCH ×2 (09:20→20:07)
[2020-06-04] MEDS: LOSARTAN 50 MG TABLET. PO SCH (09:20)
[2020-06-04] MEDS: FOLIC ACID 1 MG TABLET PO SCH (09:20)
[2020-06-04] MEDS: DIVALPROEX 125 MG CAP.SPRINK PO SCH ×2 (09:20→17:16)
--- NOTE | 2020-06-04 10:07 | NUR ---
Patient calm and cooperative with medication and assessment. Patient pleasant towards staff and appears to be in a good mood.
[2020-06-04] MEDS: QUEtiapine 25 MG TABLET. PO SCH ×2 (12:46→20:06)
[2020-06-04 16:15] VITALS: BP 171/82
[2020-06-04] MEDS: MELATONIN 3 MG TABLET PO SCH (20:06)
[2020-06-04] MEDS: NYSTATIN TOPICAL POWDER 15GM BOTTLE. TP PRN (20:21)
--- NOTE | 2020-06-04 20:30 | NUR ---
JOYCE mccoy given. Pt sitting in chair in his room and saying that we are planning to kill him. He is insisting that we arrange transportation to get him out of here. He did not want to take meds so they were crushed and given in small amount of liquid then pt placed in bed with alarms on.
--- NOTE | 2020-06-04 22:01 | PDOC ---
Exam Note: Taurus Note: Please also refer to the separate dictated note~for this date of service dictated separately.~Patient seen individually. Discussed the patient with Nursing staff reviewed the chart.~Reviewed interim history and current functioning. Reviewed vital signs,~Labs/ Radiology~and current medications noted below. Continue current treatment with the changes noted in the dictated addendum note Assessment: Vital Signs/I&O: Vital Signs Date Time Temp Pulse Resp B/P (MAP) Pulse Ox O2 Delivery O2 Flow Rate FiO2 06/04/20 20:07 68 171/82 06/04/20 19:53 97.3 06/04/20 16:15 20 94 06/03/20 16:16 Room Air I & O 06/03/20 06/03/20 06/04/20 15:00 23:00 07:00 Intake Total 240 ml 340 ml Balance 240 ml 340 ml Current Medications: Meds: Current Medications Medications (Trade) Dose Ordered Sig/Lit Route PRN Reason Start Time Stop Time Status Last Admin Dose Admin Quetiapine Fumarate (SEROquel) 12.5 mg AFTRNOON PO 06/04/20 13:00 06/04/20 12:46 I have reviewed the current psychotropics carefully including drug interactions. Risk benefit ratio favors no change other than as noted in my dictated progress note. Diagnosis: Problems: (1) Impulse control disorder, unspecified (2) Anxiety disorder, unspecified (3) Dementia, vascular, with depression (4) Dementia, vascular, with delusions (5) Major neurocognitive disorder (6) Major neurocognitive disorder, due to vascular disease, with behavioral disturbance, mild (7) History of alcohol dependence TL SAMUEL MD Jun 04, 2020 22:01
--- NOTE | 2020-06-04 23:22 | NUR ---
Pt has been sleeping since HS and PRN meds given.
[2020-06-05 05:49] VITALS: BP 135/77
[2020-06-05] MEDS: NYSTATIN 100,000 UNIT/GM TOPICAL CREAM 15GM TUBE. TP SCH ×2 (09:00→21:00)
[2020-06-05] MEDS: MULTIVITAMIN PO SCH (09:00)
[2020-06-05] MEDS: [UNRECOGNIZED DRUG - OTHER] PO SCH (09:00)
[2020-06-05] MEDS: POTASSIUM BICARB 20 MEQ EFFERVESCENT TABLET. PO SCH ×2 (09:08→21:04)
[2020-06-05] MEDS: METOPROLOL TART IMMED RELEASE 50 MG TABLET PO SCH ×2 (09:08→21:04)
[2020-06-05] MEDS: DIVALPROEX 125 MG CAP.SPRINK PO SCH ×2 (09:08→17:09)
[2020-06-05] MEDS: NYSTATIN TOPICAL POWDER 15GM BOTTLE. TP PRN ×2 (09:08→21:12)
[2020-06-05] MEDS: MAGNESIUM OXIDE 400 MG TABLET PO SCH ×3 (09:08→21:04)
[2020-06-05] MEDS: FOLIC ACID 1 MG TABLET PO SCH (09:09)
[2020-06-05] MEDS: LOSARTAN 50 MG TABLET. PO SCH (09:09)
[2020-06-05] MEDS: THIAMINE 100 MG TABLET. PO SCH (09:09)
--- NOTE | 2020-06-05 09:37 | NUR ---
SW left a message for pt stepdaughter, Sara, to contact SW when possible. SW did leave in the message informing pt dtr that treatment team would be at 1145. SIMONE will attempt to call her at that time and would be able call her back at that time so that she may get an update on pt. If she is not available, SIMONE will call later today to speak with Sara.
--- NOTE | 2020-06-05 11:27 | NUR ---
Pt is calm, however when looking at pills pt stated, "Im only going to take the ones I recognize". Pt rambling so much that he took all meds except cozaar and thiamine. RN easily able to convince patient to take the cozaar, pt responded, "well sure, if that is what will keep people off my back." Pt compliant otherwise. Is rambling about not liking agendas that require him to walk as well as people always being in a hurry these days and not taking time to slow down like in the old days. States he had a bad night and that every night is a bad night. WCTM.
--- NOTE | 2020-06-05 13:00 | NUR ---
WEEKLY ACTIVITY THERAPY NOTE Date of Admission:05/27 Date of AT Assessment:05/30 Precipitating behaviors that initiated intake and admission:Pt admitted to [facility] on 05/11 for rhabdo, delirium and DT's (60 yrs of ETOH). Pt sent to senior care on 05/25 and was there for less than 24hrs d/t combative behaviors. Pt sent back to [facility] on 05/26 where he refused meds, cares, etc. Goal aimed:increase time management and socialization skills Initial Goal: Pt will participate in one group or individual Activity Therapy session per week. Weekly progress towards goal: did not achieve Group participation level: 0/1 attempt Weekly highlights: reading independently in his room Behaviors observed: withdrawn, no interest in groups Plan: no change to goal Beneficial adaptations:
[2020-06-05] MEDS: QUEtiapine 25 MG TABLET. PO SCH ×2 (13:14→21:04)
[2020-06-05 16:21] VITALS: BP 124/74
--- NOTE | 2020-06-05 16:29 | NUR ---
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 In the event of an emergency, they would have to call the school and alert the stenographer secretary that it is pertinent to speak to her. SIMONE explained that treatment team was held today and gave her an update on how pt is doing. Sara questioned a recommendation for pt as he is not able to return to the [facility]. His only option right now is home and SIMONE explained that home would not be in the best interest of pt as he will need pretty significant help with medications, and the day to day things; not to mention he does have a few incidents of falls. Pt dtr can be emailed ( ) during the day with possible placements and she will be able to check into them after work or SIMONE can call and speak with her once the school hours are completed.
--- NOTE | 2020-06-05 18:14 | NUR ---
PSYCHOSOCIAL ASSESSMENT ADMISSION DATE: 05/27/20 CONTACT INFORMATION: DPOA/Guardian Contact Name: Sara Roberts Contact Address: [place] [address] Contact Phone #: ETHNIC ORIGIN: REASONS FOR ADMISSION: Agitated Confusion/Disoriented ADDITIONAL ADMISSION COMMENTS: The intake reports that pt is confused and agitated; but no other behaviors or scenarios noted. REASON FOR ADMISSION IN PATIENT/FAMILY'S OWN WORDS: He has noticeably been decreasing in cognition and physical health over the last 6-8 months. PATIENT/FAMILY EXPECTATIONS FOR ADMISSION: Medication and behavioral mgmt. LIVING SITUATION: Patient lives with: [facility] Other living arrangements: Contact Name: [facility] Contact Address: [address]; [place], [place] Contact Phone #: Contact Fax #: FAMILY RELATIONS: Marital Status: # of Marriages: 1 # of Children: 1 [facility] Family Support: Cooperative Involved in DC Planning Additional Comments r/t Family: Pt was to his [place] for over 40 years. 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 SIGNIFICANT PSYCHIATRIC/MEDICAL HISTORY: Psychiatric/Treatment History: This is pt first psychiatric stay on [facility]. Pt has been to [facility] in [place] and [place]; and then at the [facility] who will not take him back. Pertinent Family History: Unknown HISTORICAL DATA: Childhood Environment: Other-see below Childhood Environment Additional Comments: Pt parents are both ; he has an older brother who's last known residence was in [place]. But the were estranged and it is unknown as to if he is still living. 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 He lastly retired from [employer] in [place], [place]. service: Sabianist background: No preference Sexual orientation: Heterosexual Educational Level: Masters in Education Past/Present Interests/Hobbies: history buff politics (watches [employer] all the time) Financial support/resources: Fdc/Pension Social Security Monthly income: Person handling finances: Pt dtr handles all financial supports Do you have a history of legal problems: N Cultural considerations: None SOCIAL RELATIONSHIPS-CURRENT/PAST: Psychiatrist: None PCP: Dr. Jacinto Vela Counselor/Therapist: None Veterans' Administration: None Support Group: None Station Manager/Cupola Melter Helper: None Other relationships: None STRENGTHS & WEAKNESSES: Patient's strengths: Good family support Education level Approachable Other patient strengths: Patient's weaknesses: Lack of housing Impulsive Poor relationships Other patient weaknesses: PRELIMINARY PLAN OF TREATMENT: Preliminary plan: Promote Coping Skill Medication Stabilization Monitor Med Effects Other Dec. Outbursts Other preliminary treatment comments: DISCHARGE PLANNING: Discharge planning/disposition: Placement Needed Additional discharge needs identified: Referrals to higher level of care ADDITIONAL INFORMATION: Other Pertinent Data:
--- NOTE | 2020-06-05 18:26 | TX PLAN ---
Interdisciplinary Tx Plan Admission Information May 27, 2020 at 22:24 Legal Status (on Admission): Voluntary DPOA/Guardian Name: Sara Arnold Contact Other Contact Name: [facility] Verified Code Status: DNR Allergies: Coded Allergies: No Known Drug Allergies (Unverified , 05/27/20) Diagnoses Primary Diagnosis: Dementia with BD Reasons for Admission: Agitated, Confusion/Disoriented Problem in Patient's Words: He has noticeably been decreasing in cognition and physical health over the last 6-8 months. Additional Admission Comments: The intake reports that pt is confused and agitated; but no other behaviors or scenarios noted. Problems Active Problems: Agitated Confusion Paranoid Inactive Problems: Mostly medication compliant Pt Strengths/Limitations Ability for [place]: Poor Cognitive Functioning/Ability: Poor Communication Skills/Ability: Fair Financial Resources: Fair Insight/Judgement: Poor Intellectual Ability: Fair Physical Health: Poor Social Skills: Fair Stability in Family: Good Stability in School/Work: Poor Verbal Skills: Fair Discharge Criteria Discharge Criteria: No need for close observ., Adequate arrangements @DC, Improved behavior, Improved mood/thought Preliminary Discharge Plan Preliminary DC Plan: Placement Needed Special Precautions Fall Risk: Moderate Initial D/C Plan Pt will need a higher level of care; not able to return to [facility] Identified Discharge Needs: Referrals to higher level of care Currently Utilized Resources Currently Utilized Resources/P: Primary Care Physician Referrals Community Resources: Referrals to [facility]/Memory Care facilities Identified Problems/Hx/Goals Objectives/Short-Term Goals Short Term Goals: Dec. Outbursts, Medication Stabilization, Monitor Med Effects, Promote Coping Skill, Other Short Term Goals in Patient's: N/A Interventions/Frequency Staff Interventions/Frequency&: Psychiatrist to assess pt at least 3x per week. Social Work to assess pt at least 2x per week. Nursing to monitor behavior, medications and complete 15 minute checks daily Encourage group participation in activities or 1:1 engagement based off activity dept assessment. 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 Education: Masters in Education Community Follow-up Continue to follow-up with PCP Community Provider/Family Inpu: I just need help in finding him an appropriate place to go. He wants to go home but I just do not think it is safe right now. Treatment Plan Explained Patient/Playground Supervisor had this treatment plan explained to him/her as indicated by the signature below and has been given the opportunity to ask questions and make suggestions: Date: Patient/Playground Supervisor Signature: Patient/Playground Supervisor Decline: TAMMIE Yen Jun 05, 2020 18:26
[2020-06-05] MEDS: MELATONIN 3 MG TABLET PO SCH (21:03)
--- NOTE | 2020-06-05 21:58 | PDOC ---
Exam Note: Taurus Note: Please also refer to the separate dictated note~for this date of service dictated separately.~Patient seen individually. Discussed the patient with Nursing staff reviewed the chart.~Reviewed interim history and current functioning. Reviewed vital signs,~Labs/ Radiology~and current medications noted below. Continue current treatment with the changes noted in the dictated addendum note Assessment: Vital Signs/I&O: Vital Signs Date Time Temp Pulse Resp B/P (MAP) Pulse Ox O2 Delivery O2 Flow Rate FiO2 06/05/20 21:04 70 124/74 06/05/20 16:21 97.2 16 100 06/03/20 16:16 Room Air I & O 06/04/20 06/04/20 06/05/20 15:00 23:00 07:00 Intake Total 340 ml 120 ml Balance 340 ml 120 ml Current Medications: I have reviewed the current psychotropics carefully including drug interactions. Risk benefit ratio favors no change other than as noted in my dictated progress note. Diagnosis: Problems: (1) Impulse control disorder, unspecified (2) Anxiety disorder, unspecified (3) Dementia, vascular, with depression (4) Dementia, vascular, with delusions (5) Major neurocognitive disorder, due to vascular disease, with behavioral disturbance, mild (6) History of alcohol dependence TL SAMUEL MD Jun 05, 2020 21:58
--- NOTE | 2020-06-06 02:44 | NUR ---
At HS med pass pt was in bed and initally said he wanted to wait until morning to take meds but after a short conversation he did take all meds whole. He was pleasant and social remains confused. Only able to state name and . He has had no behaviors tonight.
[2020-06-06 05:57] VITALS: BP 134/70
--- NOTE | 2020-06-06 07:16 | PDOC ---
Exam Note: Taurus Note: This note is a late entry for 06/03/2020 covers elements not covered in my initial note. Subjective: The patient was evaluated face to face in the evening of 06/03/2020 with Corby MOREL. The patient slept 7-1/2 hours previous night. He has been confused, somewhat suspicious of medications, abrasive. He has been anxious regarding medications. He was agitated previous evening, better during the day on 06/03. Review of Systems: No CV, , pulmonary, eye, ENT system symptoms on review. Reliability poor. Gait unsteady in wheelchair. Mental Status Exam: Oriented to himself. Insight and judgment, recent and remote memory, attention and concentration, fund of knowledge is poor consistent with his diagnoses. Laboratory Data: Reviewed. 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 Anxiety disorder unspecified. Rest unchanged. 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 Plan: Continue psychotropics from initial note. Start Seroquel 12.5 mg at noon. Assessment: Vital Signs/I&O: Vital Signs Date Time Temp Pulse Resp B/P (MAP) Pulse Ox O2 Delivery O2 Flow Rate FiO2 06/06/20 05:57 98.2 70 16 134/70 (91) 100 06/03/20 16:16 Room Air I & O 06/05/20 06/05/20 06/06/20 15:00 23:00 07:00 Intake Total 480 ml 240 ml 100 ml Balance 480 ml 240 ml 100 ml Current Medications: I have reviewed the current psychotropics carefully including drug interactions. Risk benefit ratio favors no change other than as noted in my dictated progress note. Diagnosis: Problems: (1) Impulse control disorder, unspecified (2) Anxiety disorder, unspecified (3) Dementia, vascular, with depression (4) Dementia, vascular, with delusions (5) Major neurocognitive disorder, due to vascular disease, with behavioral disturbance, mild (6) History of alcohol dependence TL SAMUEL MD Jun 06, 2020 07:16
--- NOTE | 2020-06-06 07:49 | PDOC ---
Exam Note: Taurus Note: This note is a late entry for 06/04/2020 covers elements not covered in my initial note. Subjective: The patient was evaluated on telehealth rounds in the evening of 06/04/2020 with Henry Pope RN. Nursing report with Corby MOREL. Overall the patient has had a good day, less resistive to cares. As I met with him individually, he was talking about getting back to work tomorrow. 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 Review of Systems: No CV, , pulmonary, eye, ENT system symptoms on review. Gait unsteady in wheelchair. Mental Status Exam: Oriented to himself. Insight and judgment, recent and remote memory, attention and concentration, fund of knowledge is poor consistent with his diagnoses. Laboratory Data: Reviewed. 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 Anxiety disorder unspecified. Plan: No change from initial note. Assessment: Vital Signs/I&O: Vital Signs Date Time Temp Pulse Resp B/P (MAP) Pulse Ox O2 Delivery O2 Flow Rate FiO2 06/06/20 05:57 98.2 70 16 134/70 (91) 100 06/03/20 16:16 Room Air I & O 06/05/20 06/05/20 06/06/20 15:00 23:00 07:00 Intake Total 480 ml 240 ml 100 ml Balance 480 ml 240 ml 100 ml Current Medications: I have reviewed the current psychotropics carefully including drug interactions. Risk benefit ratio favors no change other than as noted in my dictated progress note. Diagnosis: Problems: (1) Impulse control disorder, unspecified (2) Anxiety disorder, unspecified (3) Dementia, vascular, with depression (4) Dementia, vascular, with delusions (5) Major neurocognitive disorder, due to vascular disease, with behavioral disturbance, mild (6) History of alcohol dependence TL SAMUEL MD Jun 06, 2020 07:49
[2020-06-06 07:50] LABS: BASO % 1 % (0-3); EOS # 0.2 x10^3/uL (0.0-0.7); EOS % 5 % (0-3); HEMATOCRIT 28.5 % (39.0-53.0); HEMOGLOBIN 9.7 g/dL (13.0-17.5); LYMPH # 0.6 x10^3/uL (1.0-4.8); LYMPH % 17 % (24-48); MEAN CORPUSCULAR HEMOGLOBIN 33 pg (25-35); MEAN CORPUSCULAR HGB CONC 34 g/dL (31-37); MEAN CORPUSCULAR VOLUME 96 fL (79-100); MONO # 0.4 x10^3/uL (0.0-1.1); MONO % 10 % (0-9); NEUT # 2.4 x10^3uL (1.8-7.7); NEUT % 67 % (31-73); PLATELET COUNT 187 x10^3/uL (140-400); RED BLOOD COUNT 2.97 x10^6/uL (4.30-5.70); RED CELL DISTRIBUTION WIDTH 14.5 % (11.5-14.5); WHITE BLOOD COUNT 3.5 x10^3/uL (4.0-11.0)
[2020-06-06 08:13] LABS: ALBUMIN 2.5 g/dL (3.4-5.0); ALBUMIN/GLOBULIN RATIO 0.6 (1.0-1.7); ALK PHOS 76 U/L (46-116); ALT (SGPT) 14 U/L (16-63); ANION GAP 6 (6-14); AST (SGOT) 18 U/L (15-37); BLOOD UREA NITROGEN 14 mg/dL (8-26); BUN/CREATININE RATIO 13 (6-20); CALCIUM 9.3 mg/dL (8.5-10.1); CARBON DIOXIDE 29 mmol/L (21-32); CHLORIDE 106 mmol/L (98-107); CREATININE 1.1 mg/dL (0.7-1.3); GFR 64.2; GLUCOSE 76 mg/dL (70-99); POTASSIUM 4.1 mmol/L (3.5-5.1); SODIUM 141 mmol/L (136-145); TOTAL BILIRUBIN 0.7 mg/dL (0.2-1.0); TOTAL PROTEIN 6.9 g/dL (6.4-8.2)
[2020-06-06 08:14] LABS: VAL ACID 46 mcg/mL (50-100)
[2020-06-06] MEDS: MULTIVITAMIN PO SCH (08:43)
[2020-06-06] MEDS: [UNRECOGNIZED DRUG - OTHER] PO SCH (08:43)
[2020-06-06] MEDS: LOSARTAN 50 MG TABLET. PO SCH (08:44)
[2020-06-06] MEDS: POTASSIUM BICARB 20 MEQ EFFERVESCENT TABLET. PO SCH ×2 (08:44→20:49)
[2020-06-06] MEDS: THIAMINE 100 MG TABLET. PO SCH (08:44)
[2020-06-06] MEDS: DIVALPROEX 125 MG CAP.SPRINK PO SCH ×2 (08:44→18:39)
[2020-06-06] MEDS: MAGNESIUM OXIDE 400 MG TABLET PO SCH ×3 (08:44→20:49)
[2020-06-06] MEDS: NYSTATIN 100,000 UNIT/GM TOPICAL CREAM 15GM TUBE. TP SCH ×2 (08:45→20:50)
[2020-06-06] MEDS: METOPROLOL TART IMMED RELEASE 50 MG TABLET PO SCH ×2 (08:45→20:50)
[2020-06-06] MEDS: FOLIC ACID 1 MG TABLET PO SCH (08:45)
[2020-06-06] MEDS: QUEtiapine 25 MG TABLET. PO SCH ×2 (13:27→20:49)
--- NOTE | 2020-06-06 14:39 | NUR ---
Patient sitting in his chair in his room with the table in front of him. He is talking, no one is in the room. At this time patient is delusional and stated he cannot be interrupted while giving the speech. Patient compliant with medications but only after asking "are you sure about taking all these?" once reassured that the doctor wants him to take the medication he was willing to take it. 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 Patient did not want to work with PT, asking them to come back in 5 minutes. When they came back he still did not want to walk. Patient was evasive about morning orientation questions. When asked where he is he stated "[place]" and then laughed. When asked the year he stated "I never answer that question". As nurse was leaving the room, patient said "give my regards" but did not finish the sentence.
[2020-06-06 16:16] VITALS: BP 117/52
[2020-06-06] MEDS: MELATONIN 3 MG TABLET PO SCH (20:49)
--- NOTE | 2020-06-06 22:08 | PDOC ---
Exam Note: Taurus Note: Please also refer to the separate dictated note~for this date of service dictated separately.~Patient seen individually. Discussed the patient with Nursing staff reviewed the chart.~Reviewed interim history and current functioning. Reviewed vital signs,~Labs/ Radiology~and current medications noted below. Continue current treatment with the changes noted in the dictated addendum note Assessment: Vital Signs/I&O: Vital Signs Date Time Temp Pulse Resp B/P (MAP) Pulse Ox O2 Delivery O2 Flow Rate FiO2 06/06/20 20:50 68 117/52 06/06/20 16:16 97.4 19 98 Room Air I & O 06/05/20 06/05/20 06/06/20 15:00 23:00 07:00 Intake Total 480 ml 240 ml 100 ml Balance 480 ml 240 ml 100 ml Labs: Laboratory Tests Test 06/06/20 07:22 White Blood Count 3.5 x10^3/uL (4.0-11.0) L Red Blood Count 2.97 x10^6/uL (4.30-5.70) L Hemoglobin 9.7 g/dL (13.0-17.5) L Hematocrit 28.5 % (39.0-53.0) L Mean Corpuscular Volume 96 fL (79-100) Mean Corpuscular Hemoglobin 33 pg (25-35) Mean Corpuscular Hemoglobin Concent 34 g/dL (31-37) Red Cell Distribution Width 14.5 % (11.5-14.5) Platelet Count 187 x10^3/uL (140-400) Neutrophils (%) (Auto) 67 % (31-73) Lymphocytes (%) (Auto) 17 % (24-48) L Monocytes (%) (Auto) 10 % (0-9) H Eosinophils (%) (Auto) 5 % (0-3) H Basophils (%) (Auto) 1 % (0-3) Neutrophils # (Auto) 2.4 x10^3uL (1.8-7.7) Lymphocytes # (Auto) 0.6 x10^3/uL (1.0-4.8) L Monocytes # (Auto) 0.4 x10^3/uL (0.0-1.1) Eosinophils # (Auto) 0.2 x10^3/uL (0.0-0.7) Basophils # (Auto) 0.0 x10^3/uL (0.0-0.2) Sodium Level 141 mmol/L (136-145) Potassium Level 4.1 mmol/L (3.5-5.1) Chloride Level 106 mmol/L (98-107) Carbon Dioxide Level 29 mmol/L (21-32) Anion Gap 6 (6-14) Blood Urea Nitrogen 14 mg/dL (8-26) Creatinine 1.1 mg/dL (0.7-1.3) Estimated GFR (Cockcroft-Gault) 64.2 BUN/Creatinine Ratio 13 (6-20) Glucose Level 76 mg/dL (70-99) Calcium Level 9.3 mg/dL (8.5-10.1) Total Bilirubin 0.7 mg/dL (0.2-1.0) Aspartate Amino Transferase (AST) 18 U/L (15-37) Alanine Aminotransferase (ALT) 14 U/L (16-63) L Alkaline Phosphatase 76 U/L (46-116) Total Protein 6.9 g/dL (6.4-8.2) Albumin 2.5 g/dL (3.4-5.0) L Albumin/Globulin Ratio 0.6 (1.0-1.7) L Valproic Acid Level 46 mcg/mL (50-100) L Valproic Acid Last Dose Date 06/05/20 Valproic Acid Last Dose Time 1700 Current Medications: Meds: Current Medications Medications (Trade) Dose Ordered Sig/Lit Route PRN Reason Start Time Stop Time Status Last Admin Dose Admin Divalproex Sodium (Depakote Sprinkles) 500 mg 1700 PO 06/06/20 17:00 06/06/20 18:39 I have reviewed the current psychotropics carefully including drug interactions. Risk benefit ratio favors no change other than as noted in my dictated progress note. Diagnosis: Problems: (1) Impulse control disorder, unspecified (2) Anxiety disorder, unspecified (3) Dementia, vascular, with depression (4) Dementia, vascular, with delusions (5) Major neurocognitive disorder, due to vascular disease, with behavioral disturbance, mild (6) History of alcohol dependence TL SAMUEL MD Jun 06, 2020 22:08
[2020-06-07 06:40] VITALS: BP 138/84
--- NOTE | 2020-06-07 07:20 | PDOC ---
Exam Note: Taurus Note: This note is a late entry for 06/05/2020 covers elements not covered in my initial note. Subjective: The patient was reviewed face to face in the morning of 06/05/2020 with treatment team meeting with Florinda (social service staff), Amanda, activity therapy, and Fransico MOREL. The patients daughter Sara was to attend the treatment team meeting but she was unavailable. He slept 6-3/4 hours previous night. Previous night he was quite paranoid, suspicious, believed everyone was trying to kill him, resistive to medications. He is doing better during the day on 06/05. Review of Systems: Ambulation impaired. No CV, , pulmonary, eye, ENT system symptoms on review. Reliability poor. Mental Status Exam: Oriented to himself. Insight and judgment, recent and remote memory, attention and concentration, fund of knowledge is poor consistent with his diagnoses. Laboratory Data: Reviewed. 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 Anxiety disorder unspecified. Plan: Continue psychotropics from initial note. Adjust further as clinically indicated. Continue Depakote. We will repeat labs level. Adjust to reach therapeutic level depending upon his progress. Assessment: Vital Signs/I&O: Vital Signs Date Time Temp Pulse Resp B/P (MAP) Pulse Ox O2 Delivery O2 Flow Rate FiO2 06/07/20 06:40 97.7 71 16 138/84 (102) 100 06/06/20 16:16 Room Air I & O 06/06/20 06/06/20 06/07/20 15:00 23:00 07:00 Intake Total 560 ml 120 ml Balance 560 ml 120 ml Labs: Laboratory Tests Test 06/06/20 07:22 White Blood Count 3.5 x10^3/uL (4.0-11.0) L Red Blood Count 2.97 x10^6/uL (4.30-5.70) L Hemoglobin 9.7 g/dL (13.0-17.5) L Hematocrit 28.5 % (39.0-53.0) L Mean Corpuscular Volume 96 fL (79-100) Mean Corpuscular Hemoglobin 33 pg (25-35) Mean Corpuscular Hemoglobin Concent 34 g/dL (31-37) Red Cell Distribution Width 14.5 % (11.5-14.5) Platelet Count 187 x10^3/uL (140-400) Neutrophils (%) (Auto) 67 % (31-73) Lymphocytes (%) (Auto) 17 % (24-48) L Monocytes (%) (Auto) 10 % (0-9) H Eosinophils (%) (Auto) 5 % (0-3) H Basophils (%) (Auto) 1 % (0-3) Neutrophils # (Auto) 2.4 x10^3uL (1.8-7.7) Lymphocytes # (Auto) 0.6 x10^3/uL (1.0-4.8) L Monocytes # (Auto) 0.4 x10^3/uL (0.0-1.1) Eosinophils # (Auto) 0.2 x10^3/uL (0.0-0.7) Basophils # (Auto) 0.0 x10^3/uL (0.0-0.2) Sodium Level 141 mmol/L (136-145) Potassium Level 4.1 mmol/L (3.5-5.1) Chloride Level 106 mmol/L (98-107) Carbon Dioxide Level 29 mmol/L (21-32) Anion Gap 6 (6-14) Blood Urea Nitrogen 14 mg/dL (8-26) Creatinine 1.1 mg/dL (0.7-1.3) Estimated GFR (Cockcroft-Gault) 64.2 BUN/Creatinine Ratio 13 (6-20) Glucose Level 76 mg/dL (70-99) Calcium Level 9.3 mg/dL (8.5-10.1) Total Bilirubin 0.7 mg/dL (0.2-1.0) Aspartate Amino Transferase (AST) 18 U/L (15-37) Alanine Aminotransferase (ALT) 14 U/L (16-63) L Alkaline Phosphatase 76 U/L (46-116) Total Protein 6.9 g/dL (6.4-8.2) Albumin 2.5 g/dL (3.4-5.0) L Albumin/Globulin Ratio 0.6 (1.0-1.7) L Valproic Acid Level 46 mcg/mL (50-100) L Valproic Acid Last Dose Date 06/05/20 Valproic Acid Last Dose Time 1700 Current Medications: Meds: Current Medications Medications (Trade) Dose Ordered Sig/Lit Route PRN Reason Start Time Stop Time Status Last Admin Dose Admin Divalproex Sodium (Depakote Sprinkles) 500 mg 1700 PO 06/06/20 17:00 06/06/20 18:39 I have reviewed the current psychotropics carefully including drug interactions. Risk benefit ratio favors no change other than as noted in my dictated progress note. Diagnosis: Problems: (1) Impulse control disorder, unspecified (2) Anxiety disorder, unspecified (3) Dementia, vascular, with depression (4) Dementia, vascular, with delusions (5) Major neurocognitive disorder, due to vascular disease, with behavioral disturbance, mild (6) History of alcohol dependence TL SAMUEL MD Jun 07, 2020 07:20
--- NOTE | 2020-06-07 07:33 | PDOC ---
Exam Note: Taurus Note: This note is a late entry for 06/06/2020 covers elements not covered in my initial note. Subjective: The patient was evaluated on telehealth rounds in the evening of 06/06/2020 because of the COVID-19 pandemic restrictions with [facility] nursing aid. Nursing report was with Meaghan MOREL. He slept 7-1/2 hours previous night. 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 Valproic acid level is 46 on Depakote 250 mg b.i.d. We will increase to 250 mg a.m. and 500 mg h.s. Check CBC, CMP, valproic acid level in 3 days. Review of Systems: Ambulation impaired in wheelchair. No CV, , pulmonary, eye, ENT system symptoms on review. Reliability poor. Mental Status Exam: Oriented to himself. Insight and judgment, recent and remote memory, attention and concentration, fund of knowledge is poor consistent with his diagnoses. Laboratory Data: Reviewed. 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 Anxiety disorder unspecified. Plan: Valproic acid level is 46 on Depakote 250 mg b.i.d. We will increase to 250 mg a.m. and 500 mg h.s. Check CBC, CMP, valproic acid level in 3 days. Assessment: Vital Signs/I&O: Vital Signs Date Time Temp Pulse Resp B/P (MAP) Pulse Ox O2 Delivery O2 Flow Rate FiO2 06/07/20 06:40 97.7 71 16 138/84 (102) 100 06/06/20 16:16 Room Air I & O 06/06/20 06/06/20 06/07/20 15:00 23:00 07:00 Intake Total 560 ml 120 ml Balance 560 ml 120 ml Current Medications: Meds: Current Medications Medications (Trade) Dose Ordered Sig/Lit Route PRN Reason Start Time Stop Time Status Last Admin Dose Admin Divalproex Sodium (Depakote Sprinkles) 500 mg 1700 PO 06/06/20 17:00 06/06/20 18:39 I have reviewed the current psychotropics carefully including drug interactions. Risk benefit ratio favors no change other than as noted in my dictated progress note. Diagnosis: Problems: (1) Impulse control disorder, unspecified (2) Anxiety disorder, unspecified (3) Dementia, vascular, with depression (4) Dementia, vascular, with delusions (5) Major neurocognitive disorder (6) Major neurocognitive disorder, due to vascular disease, with behavioral disturbance, mild (7) History of alcohol dependence TL SAMUEL MD Jun 07, 2020 07:33
[2020-06-07] MEDS: MULTIVITAMIN PO SCH ×2 (08:50→09:01)
[2020-06-07] MEDS: FOLIC ACID 1 MG TABLET PO SCH (08:50)
[2020-06-07] MEDS: [UNRECOGNIZED DRUG - OTHER] PO SCH ×2 (08:50→09:01)
[2020-06-07] MEDS: MAGNESIUM OXIDE 400 MG TABLET PO SCH ×3 (08:51→20:26)
[2020-06-07] MEDS: POTASSIUM BICARB 20 MEQ EFFERVESCENT TABLET. PO SCH ×2 (08:51→20:26)
[2020-06-07] MEDS: LOSARTAN 50 MG TABLET. PO SCH (08:51)
[2020-06-07] MEDS: METOPROLOL TART IMMED RELEASE 50 MG TABLET PO SCH ×2 (08:51→20:26)
[2020-06-07] MEDS: DIVALPROEX 125 MG CAP.SPRINK PO SCH ×2 (08:52→18:28)
[2020-06-07] MEDS: THIAMINE 100 MG TABLET. PO SCH (08:52)
[2020-06-07] MEDS: NYSTATIN 100,000 UNIT/GM TOPICAL CREAM 15GM TUBE. TP SCH ×2 (08:53→20:30)
[2020-06-07] MEDS: QUEtiapine 25 MG TABLET. PO SCH ×2 (13:32→20:25)
--- NOTE | 2020-06-07 16:20 | NUR ---
Patient was in his room reading the newspaper during morning med pass. He acted irritated when nurse brought medications in. Patient stated "I am a busy man". Patient compliant with morning medications except he refused to take his Flinstone multivitamin. Patient takes the medications whole with water, he occasionally asks what they are. He then snapped his newspaper back open and dismissed nurse with a wave of his hand. He has been withdrawn to his room most of the day and has been calm and cooperative.
[2020-06-07 16:26] VITALS: BP 120/75
[2020-06-07] MEDS: MELATONIN 3 MG TABLET PO SCH (20:25)
--- NOTE | 2020-06-07 22:05 | PDOC ---
Exam Note: Taurus Note: Please also refer to the separate dictated note~for this date of service dictated separately.~Patient seen individually. Discussed the patient with Nursing staff reviewed the chart.~Reviewed interim history and current functioning. Reviewed vital signs,~Labs/ Radiology~and current medications noted below. Continue current treatment with the changes noted in the dictated addendum note Assessment: Vital Signs/I&O: Vital Signs Date Time Temp Pulse Resp B/P (MAP) Pulse Ox O2 Delivery O2 Flow Rate FiO2 06/07/20 21:55 97.9 100 06/07/20 20:26 71 120/75 06/07/20 16:26 16 06/06/20 16:16 Room Air I & O 06/06/20 06/06/20 06/07/20 15:00 23:00 07:00 Intake Total 560 ml 120 ml Balance 560 ml 120 ml Current Medications: Meds: Current Medications Medications (Trade) Dose Ordered Sig/Lit Route PRN Reason Start Time Stop Time Status Last Admin Dose Admin Divalproex Sodium (Depakote Sprinkles) 250 mg DAILY PO 06/07/20 09:00 06/07/20 08:52 I have reviewed the current psychotropics carefully including drug interactions. Risk benefit ratio favors no change other than as noted in my dictated progress note. Diagnosis: Problems: (1) Impulse control disorder, unspecified (2) Anxiety disorder, unspecified (3) Dementia, vascular, with depression (4) Dementia, vascular, with delusions (5) Major neurocognitive disorder (6) Major neurocognitive disorder, due to vascular disease, with behavioral disturbance, mild (7) History of alcohol dependence TL SAMUEL MD Jun 07, 2020 22:04
--- NOTE | 2020-06-07 23:51 | NUR ---
Nursing Note Pt talks about all these people not working around here, none of them doing what they are supposed to do. He states he's never coming back here because of all the lack of work ethic etc. He is referring to his peers that wander and are confused. 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 Compliant with meds and assessment.
[2020-06-08] MEDS: POTASSIUM BICARB 20 MEQ EFFERVESCENT TABLET. PO SCH ×2 (07:11→21:00)
[2020-06-08] MEDS: METOPROLOL TART IMMED RELEASE 50 MG TABLET PO SCH ×2 (07:12→21:24)
[2020-06-08] MEDS: DIVALPROEX 125 MG CAP.SPRINK PO SCH ×2 (07:12→16:33)
[2020-06-08] MEDS: LOSARTAN 50 MG TABLET. PO SCH (07:13)
[2020-06-08] MEDS: FOLIC ACID 1 MG TABLET PO SCH (07:13)
[2020-06-08] MEDS: MAGNESIUM OXIDE 400 MG TABLET PO SCH ×3 (07:13→21:24)
[2020-06-08] MEDS: THIAMINE 100 MG TABLET. PO SCH (07:13)
[2020-06-08] MEDS: [UNRECOGNIZED DRUG - OTHER] PO SCH (07:14)
[2020-06-08] MEDS: NYSTATIN 100,000 UNIT/GM TOPICAL CREAM 15GM TUBE. TP SCH ×2 (07:14→21:00)
[2020-06-08] MEDS: MULTIVITAMIN PO SCH (07:14)
[2020-06-08 07:15] VITALS: BP 126/73
--- NOTE | 2020-06-08 12:07 | NUR ---
Nursing Note Pt worried about our presentation that is due today. Compliant with meds and assessment. Cooperative.
[2020-06-08] MEDS: QUEtiapine 25 MG TABLET. PO SCH ×2 (13:09→21:24)
[2020-06-08 16:41] VITALS: BP 145/79
[2020-06-08] MEDS: MELATONIN 3 MG TABLET PO SCH (21:24)
--- NOTE | 2020-06-08 22:05 | PDOC ---
Exam Note: Taurus Note: Please also refer to the separate dictated note~for this date of service dictated separately.~Patient seen individually. Discussed the patient with Nursing staff reviewed the chart.~Reviewed interim history and current functioning. Reviewed vital signs,~Labs/ Radiology~and current medications noted below. Continue current treatment with the changes noted in the dictated addendum note Assessment: Vital Signs/I&O: Vital Signs Date Time Temp Pulse Resp B/P (MAP) Pulse Ox O2 Delivery O2 Flow Rate FiO2 06/08/20 21:24 72 145/79 06/08/20 16:41 97.4 19 98 06/06/20 16:16 Room Air I & O 06/07/20 06/07/20 06/08/20 15:00 23:00 07:00 Intake Total 360 ml 460 ml Balance 360 ml 460 ml Current Medications: I have reviewed the current psychotropics carefully including drug interactions. Risk benefit ratio favors no change other than as noted in my dictated progress note. Diagnosis: Problems: (1) Impulse control disorder, unspecified (2) Anxiety disorder, unspecified (3) Dementia, vascular, with depression (4) Dementia, vascular, with delusions (5) Major neurocognitive disorder (6) Major neurocognitive disorder, due to vascular disease, with behavioral disturbance, mild (7) History of alcohol dependence TL SAMUEL MD Jun 08, 2020 22:05
--- NOTE | 2020-06-08 22:58 | NUR ---
Pt has been in his room all day. Compliant with whole medications. Irritable and restless at times. Hallucinating intermittently- carrying on conversations with people that are not there.
[2020-06-09 06:33] VITALS: BP 132/78
--- NOTE | 2020-06-09 07:07 | PDOC ---
Exam Note: Taurus Note: This note is a late entry for 06/07/2020 covers elements not covered in my initial note. Subjective: The patient was evaluated face to face in the evening of 06/07/2020 with Meaghan MOREL. He slept 8 hours previous night. 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 I met with him in his room. Review of Systems: Ambulation impaired in wheelchair. No CV, , pulmonary, eye, ENT system symptoms on review. Mental Status Exam: Oriented to himself. Insight and judgment, recent and remote memory, attention and concentration, fund of knowledge is poor consistent with his diagnoses. Laboratory Data: Reviewed. 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 Anxiety disorder unspecified. Plan: No change from initial note. Assessment: Vital Signs/I&O: Vital Signs Date Time Temp Pulse Resp B/P (MAP) Pulse Ox O2 Delivery O2 Flow Rate FiO2 06/09/20 06:33 97.5 75 16 132/78 (96) 96 06/06/20 16:16 Room Air I & O 06/08/20 06/08/20 06/09/20 15:00 23:00 07:00 Intake Total 600 ml 240 ml 50 ml Balance 600 ml 240 ml 50 ml Current Medications: I have reviewed the current psychotropics carefully including drug interactions. Risk benefit ratio favors no change other than as noted in my dictated progress note. Diagnosis: Problems: (1) Impulse control disorder, unspecified (2) Anxiety disorder, unspecified (3) Dementia, vascular, with depression (4) Dementia, vascular, with delusions (5) Major neurocognitive disorder (6) Major neurocognitive disorder, due to vascular disease, with behavioral disturbance, mild (7) History of alcohol dependence TL SAMUEL MD Jun 09, 2020 07:07
--- NOTE | 2020-06-09 07:38 | PDOC ---
Exam Note: [place]aurus Note: This note is a late entry for 06/08/2020 covers elements not covered in my initial note. Subjective: The patient was evaluated face to face in the evening of 06/08/2020 with Vandana MOREL. He has been in bed, hallucinating at times. Review of Systems: Ambulation impaired in wheelchair. No CV, , pulmonary, ey e, ENT system symptoms on review. Mental Status Exam: Oriented to himself. Insight and judgment, recent and remote memory, attention and concentration, fund of knowledge is poor consistent with his diagnoses. Laboratory Data: Reviewed. 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 Anxiety disorder unspecified. Plan: Given the family concerns about him returning home with them, needing some adjustments in psychotropics to help his agitation, which prompted admission, we will go ahead and add Seroquel 12.5 mg 9 a.m. Make further adjustments as clinically indicated. Assessment: Vital Signs/I&O: Vital Signs Date Time Temp Pulse Resp B/P (MAP) Pulse Ox O2 Delivery O2 Flow Rate FiO2 06/09/20 06:33 97.5 75 16 132/78 (96) 96 06/06/20 16:16 Room Air I & O 06/08/20 06/08/20 06/09/20 15:00 23:00 07:00 Intake Total 600 ml 240 ml 50 ml Balance 600 ml 240 ml 50 ml Current Medications: I have reviewed the current psychotropics carefully including drug interactions. Risk benefit ratio favors no change other than as noted in my dictated progress note. Diagnosis: Problems: (1) Impulse control disorder, unspecified (2) Anxiety disorder, unspecified (3) Dementia, vascular, with depression (4) Dementia, vascular, with delusions (5) Major neurocognitive disorder (6) Major neurocognitive disorder, due to vascular disease, with behavioral disturbance, mild (7) History of alcohol dependence TL SAMUEL MD Jun 09, 2020 07:38
[2020-06-09] MEDS: [UNRECOGNIZED DRUG - OTHER] PO SCH ×2 (09:00→09:18)
[2020-06-09] MEDS: NYSTATIN 100,000 UNIT/GM TOPICAL CREAM 15GM TUBE. TP SCH ×2 (09:00→20:43)
[2020-06-09] MEDS: MULTIVITAMIN PO SCH ×2 (09:00→09:18)
[2020-06-09] MEDS: MAGNESIUM OXIDE 400 MG TABLET PO SCH ×4 (09:00→20:42)
[2020-06-09] MEDS: METOPROLOL TART IMMED RELEASE 50 MG TABLET PO SCH ×2 (09:09→20:44)
[2020-06-09] MEDS: DIVALPROEX 125 MG CAP.SPRINK PO SCH ×2 (09:09→16:53)
[2020-06-09] MEDS: THIAMINE 100 MG TABLET. PO SCH (09:09)
[2020-06-09] MEDS: LOSARTAN 50 MG TABLET. PO SCH (09:09)
[2020-06-09] MEDS: FOLIC ACID 1 MG TABLET PO SCH (09:09)
[2020-06-09] MEDS: POTASSIUM BICARB 20 MEQ EFFERVESCENT TABLET. PO SCH ×2 (09:09→20:43)
[2020-06-09] MEDS: QUEtiapine 25 MG TABLET. PO SCH ×3 (09:12→20:42)
--- NOTE | 2020-06-09 10:12 | NUR ---
Patient is particular. Refusing to take his flinstone vitamin and was trying to not take remaining pills. RN took magnesium out and asked patient to please take the rest. Pt said, "look if now you are being honest, then I will take the pills. I hate it when people aren't honest." Pt did take remainder of pills. Pt is compliant with assessment and did eat some breakfast. WCTM.
--- NOTE | 2020-06-09 13:40 | NUR ---
Resumed pt care.
--- NOTE | 2020-06-09 13:46 | NUR ---
SIMONE emailed pt dtr Sara to let her know the unit as of now is on hold as a pt tested as positive; so until we get more direction from the health department, the Behavioral Unit will do no admissions in and no discharges out. We are hopefully to hear back today if not Friday. SIMONE will follow up with pt family.
[2020-06-09 17:04] VITALS: BP 128/84
[2020-06-09] MEDS: MELATONIN 3 MG TABLET PO SCH (20:42)
--- NOTE | 2020-06-09 22:00 | PDOC ---
Exam Note: Taurus Note: Please also refer to the separate dictated note~for this date of service dictated separately.~Patient seen individually. Discussed the patient with Nursing staff reviewed the chart.~Reviewed interim history and current functioning. Reviewed vital signs,~Labs/ Radiology~and current medications noted below. Continue current treatment with the changes noted in the dictated addendum note Assessment: Vital Signs/I&O: Vital Signs Date Time Temp Pulse Resp B/P (MAP) Pulse Ox O2 Delivery O2 Flow Rate FiO2 06/09/20 20:44 70 151/73 06/09/20 17:04 98.0 18 98 06/06/20 16:16 Room Air I & O 06/08/20 06/08/20 06/09/20 15:00 23:00 07:00 Intake Total 600 ml 240 ml 50 ml Balance 600 ml 240 ml 50 ml Current Medications: Meds: Current Medications Medications (Trade) Dose Ordered Sig/Lit Route PRN Reason Start Time Stop Time Status Last Admin Dose Admin Quetiapine Fumarate (SEROquel) 12.5 mg DAILY PO 06/09/20 09:00 06/09/20 09:12 I have reviewed the current psychotropics carefully including drug interactions. Risk benefit ratio favors no change other than as noted in my dictated progress note. Diagnosis: Problems: (1) Impulse control disorder, unspecified (2) Anxiety disorder, unspecified (3) Dementia, vascular, with depression (4) Dementia, vascular, with delusions (5) Major neurocognitive disorder (6) Major neurocognitive disorder, due to vascular disease, with behavioral disturbance, mild (7) History of alcohol dependence TL SAMUEL MD Jun 09, 2020 22:00
[2020-06-09 22:08] VITALS: BP 151/82
--- NOTE | 2020-06-09 22:42 | NUR ---
Nursing Note: Pt in bed upon assessment. Pt took meds whole with verbal cues. Pt had medication stuck in his mouth and used two full cups of water to get meds down. Pt began to argue and yell about not having enough water. Pt was reassured everything was ok and he had another cup of water. Pt pleasant and calm.
[2020-06-10 05:54] VITALS: BP 156/88
[2020-06-10 08:48] LABS: BASO % 0 % (0-3); EOS # 0.2 x10^3/uL (0.0-0.7); EOS % 5 % (0-3); HEMATOCRIT 31.5 % (39.0-53.0); HEMOGLOBIN 10.6 g/dL (13.0-17.5); LYMPH # 0.8 x10^3/uL (1.0-4.8); LYMPH % 18 % (24-48); MEAN CORPUSCULAR HEMOGLOBIN 32 pg (25-35); MEAN CORPUSCULAR HGB CONC 34 g/dL (31-37); MEAN CORPUSCULAR VOLUME 95 fL (79-100); MONO # 0.6 x10^3/uL (0.0-1.1); MONO % 12 % (0-9); NEUT % 65 % (31-73); PLATELET COUNT 169 x10^3/uL (140-400); RED BLOOD COUNT 3.31 x10^6/uL (4.30-5.70); RED CELL DISTRIBUTION WIDTH 14.4 % (11.5-14.5); WHITE BLOOD COUNT 4.6 x10^3/uL (4.0-11.0)
[2020-06-10] MEDS: NYSTATIN 100,000 UNIT/GM TOPICAL CREAM 15GM TUBE. TP SCH ×2 (09:00→21:00)
[2020-06-10] MEDS: [UNRECOGNIZED DRUG - OTHER] PO SCH (09:26)
[2020-06-10] MEDS: NYSTATIN TOPICAL POWDER 15GM BOTTLE. TP PRN (09:26)
[2020-06-10] MEDS: MULTIVITAMIN PO SCH (09:26)
[2020-06-10] MEDS: THIAMINE 100 MG TABLET. PO SCH (09:27)
[2020-06-10] MEDS: POTASSIUM BICARB 20 MEQ EFFERVESCENT TABLET. PO SCH ×3 (09:27→21:25)
[2020-06-10] MEDS: MAGNESIUM OXIDE 400 MG TABLET PO SCH ×3 (09:27→21:24)
[2020-06-10] MEDS: FOLIC ACID 1 MG TABLET PO SCH (09:27)
[2020-06-10] MEDS: METOPROLOL TART IMMED RELEASE 50 MG TABLET PO SCH ×2 (09:27→21:24)
[2020-06-10] MEDS: QUEtiapine 25 MG TABLET. PO SCH ×3 (09:28→21:25)
[2020-06-10] MEDS: DIVALPROEX 125 MG CAP.SPRINK PO SCH ×2 (09:28→17:18)
[2020-06-10] MEDS: LOSARTAN 50 MG TABLET. PO SCH (09:28)
[2020-06-10 09:46] LABS: ALBUMIN 2.6 g/dL (3.4-5.0); ALBUMIN/GLOBULIN RATIO 0.6 (1.0-1.7); ALK PHOS 65 U/L (46-116); ALT (SGPT) 12 U/L (16-63); ANION GAP 7 (6-14); AST (SGOT) 17 U/L (15-37); BLOOD UREA NITROGEN 17 mg/dL (8-26); BUN/CREATININE RATIO 17 (6-20); CALCIUM 9.3 mg/dL (8.5-10.1); CARBON DIOXIDE 26 mmol/L (21-32); CHLORIDE 109 mmol/L (98-107); GFR 71.7; GLUCOSE 74 mg/dL (70-99); POTASSIUM 5.2 mmol/L (3.5-5.1); SODIUM 142 mmol/L (136-145); TOTAL BILIRUBIN 0.7 mg/dL (0.2-1.0); TOTAL PROTEIN 6.9 g/dL (6.4-8.2)
[2020-06-10 09:57] LABS: VAL ACID 59 mcg/mL (50-100)
--- NOTE | 2020-06-10 10:15 | NUR ---
Patient willing to take medication once people stopped walking past his room. Patient suspicious of staff but after a conversation he was able to be calmed. Patient appears to have increase anxiety and agitation after blood draw. He is yelling and moving in a aggressive matter when staff comes near him.
[2020-06-10 15:51] VITALS: BP 149/66
[2020-06-10] MEDS: MELATONIN 3 MG TABLET PO SCH (21:24)
--- NOTE | 2020-06-10 21:58 | PDOC ---
Exam Note: Taurus Note: Please also refer to the separate dictated note~for this date of service dictated separately.~Patient seen individually. Discussed the patient with Nursing staff reviewed the chart.~Reviewed interim history and current functioning. Reviewed vital signs,~Labs/ Radiology~and current medications noted below. Continue current treatment with the changes noted in the dictated addendum note Assessment: Vital Signs/I&O: Vital Signs Date Time Temp Pulse Resp B/P (MAP) Pulse Ox O2 Delivery O2 Flow Rate FiO2 06/10/20 21:24 68 149/66 06/10/20 15:51 98.1 17 96 Room Air I & O 06/09/20 06/09/20 06/10/20 15:00 23:00 07:00 Intake Total 480 ml 540 ml Balance 480 ml 540 ml Labs: Laboratory Tests Test 06/10/20 08:15 White Blood Count 4.6 x10^3/uL (4.0-11.0) Red Blood Count 3.31 x10^6/uL (4.30-5.70) L Hemoglobin 10.6 g/dL (13.0-17.5) L Hematocrit 31.5 % (39.0-53.0) L Mean Corpuscular Volume 95 fL (79-100) Mean Corpuscular Hemoglobin 32 pg (25-35) Mean Corpuscular Hemoglobin Concent 34 g/dL (31-37) Red Cell Distribution Width 14.4 % (11.5-14.5) Platelet Count 169 x10^3/uL (140-400) Neutrophils (%) (Auto) 65 % (31-73) Lymphocytes (%) (Auto) 18 % (24-48) L Monocytes (%) (Auto) 12 % (0-9) H Eosinophils (%) (Auto) 5 % (0-3) H Basophils (%) (Auto) 0 % (0-3) Neutrophils # (Auto) 3.0 x10^3uL (1.8-7.7) Lymphocytes # (Auto) 0.8 x10^3/uL (1.0-4.8) L Monocytes # (Auto) 0.6 x10^3/uL (0.0-1.1) Eosinophils # (Auto) 0.2 x10^3/uL (0.0-0.7) Basophils # (Auto) 0.0 x10^3/uL (0.0-0.2) Sodium Level 142 mmol/L (136-145) Potassium Level 5.2 mmol/L (3.5-5.1) H Chloride Level 109 mmol/L (98-107) H Carbon Dioxide Level 26 mmol/L (21-32) Anion Gap 7 (6-14) Blood Urea Nitrogen 17 mg/dL (8-26) Creatinine 1.0 mg/dL (0.7-1.3) Estimated GFR (Cockcroft-Gault) 71.7 BUN/Creatinine Ratio 17 (6-20) Glucose Level 74 mg/dL (70-99) Calcium Level 9.3 mg/dL (8.5-10.1) Total Bilirubin 0.7 mg/dL (0.2-1.0) Aspartate Amino Transferase (AST) 17 U/L (15-37) Alanine Aminotransferase (ALT) 12 U/L (16-63) L Alkaline Phosphatase 65 U/L (46-116) Total Protein 6.9 g/dL (6.4-8.2) Albumin 2.6 g/dL (3.4-5.0) L Albumin/Globulin Ratio 0.6 (1.0-1.7) L Valproic Acid Level 59 mcg/mL (50-100) Valproic Acid Last Dose Date 06/09/20 Valproic Acid Last Dose Time 2100 Current Medications: I have reviewed the current psychotropics carefully including drug interactions. Risk benefit ratio favors no change other than as noted in my dictated progress note. Diagnosis: Problems: (1) Impulse control disorder, unspecified (2) Anxiety disorder, unspecified (3) Dementia, vascular, with depression (4) Dementia, vascular, with delusions (5) Major neurocognitive disorder (6) Major neurocognitive disorder, due to vascular disease, with behavioral disturbance, mild (7) History of alcohol dependence TL SAMUEL MD Jun 10, 2020 21:58
--- NOTE | 2020-06-10 23:40 | NUR ---
Pt has been irritable and non compliant this evening. Pt refused HS medications, stating "no" and pulling covers over his face. Pt became more irritated with RN attempting to coax pt into taking medications. HS medications administered sublingually with much resistance from pt. Pt eventually swallowed medications and went to sleep. Will continue to monitor.
[2020-06-11 05:50] VITALS: BP 153/83
[2020-06-11] MEDS: POTASSIUM BICARB 20 MEQ EFFERVESCENT TABLET. PO SCH ×2 (08:54→21:00)
[2020-06-11] MEDS: MULTIVITAMIN PO SCH (08:55)
[2020-06-11] MEDS: LOSARTAN 50 MG TABLET. PO SCH (08:55)
[2020-06-11] MEDS: MAGNESIUM OXIDE 400 MG TABLET PO SCH ×3 (08:55→21:00)
[2020-06-11] MEDS: DIVALPROEX 125 MG CAP.SPRINK PO SCH ×2 (08:55→16:56)
[2020-06-11] MEDS: QUEtiapine 25 MG TABLET. PO SCH ×3 (08:55→19:51)
[2020-06-11] MEDS: FOLIC ACID 1 MG TABLET PO SCH (08:55)
[2020-06-11] MEDS: THIAMINE 100 MG TABLET. PO SCH (08:55)
[2020-06-11] MEDS: [UNRECOGNIZED DRUG - OTHER] PO SCH (08:55)
[2020-06-11] MEDS: METOPROLOL TART IMMED RELEASE 50 MG TABLET PO SCH ×2 (08:56→21:00)
[2020-06-11] MEDS: NYSTATIN 100,000 UNIT/GM TOPICAL CREAM 15GM TUBE. TP SCH ×2 (08:56→21:00)
[2020-06-11 09:06] LABS: BASO % 1 % (0-3); EOS # 0.2 x10^3/uL (0.0-0.7); EOS % 5 % (0-3); HEMATOCRIT 31.6 % (39.0-53.0); HEMOGLOBIN 10.6 g/dL (13.0-17.5); LYMPH # 0.6 x10^3/uL (1.0-4.8); LYMPH % 16 % (24-48); MEAN CORPUSCULAR HEMOGLOBIN 32 pg (25-35); MEAN CORPUSCULAR HGB CONC 34 g/dL (31-37); MEAN CORPUSCULAR VOLUME 96 fL (79-100); MONO # 0.4 x10^3/uL (0.0-1.1); MONO % 11 % (0-9); NEUT # 2.5 x10^3uL (1.8-7.7); NEUT % 68 % (31-73); PLATELET COUNT 169 x10^3/uL (140-400); RED BLOOD COUNT 3.29 x10^6/uL (4.30-5.70); RED CELL DISTRIBUTION WIDTH 14.8 % (11.5-14.5); WHITE BLOOD COUNT 3.7 x10^3/uL (4.0-11.0)
[2020-06-11 09:20] LABS: ALBUMIN 2.7 g/dL (3.4-5.0); ALBUMIN/GLOBULIN RATIO 0.6 (1.0-1.7); CALCIUM 9.2 mg/dL (8.5-10.1); CREATININE 0.9 mg/dL (0.7-1.3); POTASSIUM 4.2 mmol/L (3.5-5.1); TOTAL BILIRUBIN 0.6 mg/dL (0.2-1.0); TOTAL PROTEIN 7.1 g/dL (6.4-8.2)
--- NOTE | 2020-06-11 09:48 | NUR ---
Patient calmer this morning. Patient requested medication to be crushed. Patient enjoyed breakfast and has no further needs at this time.
[2020-06-11 15:49] VITALS: BP 113/69
[2020-06-11] MEDS: MELATONIN 3 MG TABLET PO SCH (19:51)
--- NOTE | 2020-06-11 22:03 | PDOC ---
Exam Note: [place]aurus Note: Please also refer to the separate dictated note~for this date of service dictated separately.~Patient seen individually. Discussed the patient with Nursing staff reviewed the chart.~Reviewed interim history and current functioning. Reviewed vital signs,~Labs/ Radiology~and current medications noted below. Continue current treatment with the changes noted in the dictated addendum note Assessment: Vital Signs/I&O: Vital Signs Date Time Temp Pulse Resp B/P (MAP) Pulse Ox O2 Delivery O2 Flow Rate FiO2 06/11/20 21:02 98.1 100 06/11/20 15:49 68 16 113/69 (84) Room Air I & O 06/10/20 06/10/20 06/11/20 15:00 23:00 07:00 Intake Total 240 ml 120 ml 120 ml Balance 240 ml 120 ml 120 ml Labs: Laboratory Tests Test 06/11/20 08:30 White Blood Count 3.7 x10^3/uL (4.0-11.0) L Red Blood Count 3.29 x10^6/uL (4.30-5.70) L Hemoglobin 10.6 g/dL (13.0-17.5) L Hematocrit 31.6 % (39.0-53.0) L Mean Corpuscular Volume 96 fL (79-100) Mean Corpuscular Hemoglobin 32 pg (25-35) Mean Corpuscular Hemoglobin Concent 34 g/dL (31-37) Red Cell Distribution Width 14.8 % (11.5-14.5) H Platelet Count 169 x10^3/uL (140-400) Neutrophils (%) (Auto) 68 % (31-73) Lymphocytes (%) (Auto) 16 % (24-48) L Monocytes (%) (Auto) 11 % (0-9) H Eosinophils (%) (Auto) 5 % (0-3) H Basophils (%) (Auto) 1 % (0-3) Neutrophils # (Auto) 2.5 x10^3uL (1.8-7.7) Lymphocytes # (Auto) 0.6 x10^3/uL (1.0-4.8) L Monocytes # (Auto) 0.4 x10^3/uL (0.0-1.1) Eosinophils # (Auto) 0.2 x10^3/uL (0.0-0.7) Basophils # (Auto) 0.0 x10^3/uL (0.0-0.2) Sodium Level 144 mmol/L (136-145) Potassium Level 4.2 mmol/L (3.5-5.1) Chloride Level 109 mmol/L (98-107) H Carbon Dioxide Level 28 mmol/L (21-32) Anion Gap 7 (6-14) Blood Urea Nitrogen 15 mg/dL (8-26) Creatinine 0.9 mg/dL (0.7-1.3) Estimated GFR (Cockcroft-Gault) 81.0 BUN/Creatinine Ratio 17 (6-20) Glucose Level 77 mg/dL (70-99) Calcium Level 9.2 mg/dL (8.5-10.1) Total Bilirubin 0.6 mg/dL (0.2-1.0) Aspartate Amino Transferase (AST) 16 U/L (15-37) Alanine Aminotransferase (ALT) 13 U/L (16-63) L Alkaline Phosphatase 66 U/L (46-116) Total Protein 7.1 g/dL (6.4-8.2) Albumin 2.7 g/dL (3.4-5.0) L Albumin/Globulin Ratio 0.6 (1.0-1.7) L Current Medications: Meds: Current Medications Medications (Trade) Dose Ordered Sig/Lit Route PRN Reason Start Time Stop Time Status Last Admin Dose Admin Quetiapine Fumarate (SEROquel) 25 mg DAILY PO 06/11/20 09:00 06/11/20 08:55 I have reviewed the current psychotropics carefully including drug interactions. Risk benefit ratio favors no change other than as noted in my dictated progress note. Diagnosis: Problems: (1) Impulse control disorder, unspecified (2) Anxiety disorder, unspecified (3) Dementia, vascular, with depression (4) Dementia, vascular, with delusions (5) Major neurocognitive disorder (6) Major neurocognitive disorder, due to vascular disease, with behavioral disturbance, mild (7) History of alcohol dependence TL SAMUEL MD Jun 11, 2020 22:03
--- NOTE | 2020-06-11 22:41 | NUR ---
Pt very restless and compulsive this evening. Combative with redirection. Non compliant with medications. HS medications administered sublingually with resistance.
--- NOTE | 2020-06-12 04:43 | NUR ---
Pt has been intermittently hallucinating and hollering out throughout the night. Pt combative with ADLs this morning. PRN Zyprexa administered sublingually.
--- NOTE | 2020-06-12 07:03 | PDOC ---
Exam Note: [place]aurus Note: This note is a late entry for 06/09/2020 covers elements not covered in my initial note. Subjective: The patient was evaluated on telehealth rounds in the evening of 06/09/2020 with Traci nursing aid as one of the patients on the unit has tested positive for COVID-19 and unit is on a lockdown with no admission and discharges. That is the reason I am doing telehealth rounds to minimize any further spread of the infection. Nursing report with Teresa MOREL. He slept 6- 1/2 hours previous night. 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. Review of Systems: Ambulation impaired in wheelchair. No CV, , pulmonary, eye, ENT system symptoms on review. Mental Status Exam: Oriented to himself. Insight and judgment, recent and remote memory, attention and concentration, fund of knowledge is poor consistent with his diagnoses. Laboratory Data: Reviewed. 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 Anxiety disorder unspecified. Plan: No change from initial note. Assessment: Vital Signs/I&O: Vital Signs Date Time Temp Pulse Resp B/P (MAP) Pulse Ox O2 Delivery O2 Flow Rate FiO2 06/12/20 06:10 73 20 96 06/11/20 21:02 98.1 06/11/20 15:49 113/69 (84) Room Air I & O 06/11/20 06/11/20 06/12/20 15:00 23:00 07:00 Intake Total 480 ml 240 ml Balance 480 ml 240 ml Labs: Laboratory Tests Test 06/11/20 08:30 White Blood Count 3.7 x10^3/uL (4.0-11.0) L Red Blood Count 3.29 x10^6/uL (4.30-5.70) L Hemoglobin 10.6 g/dL (13.0-17.5) L Hematocrit 31.6 % (39.0-53.0) L Mean Corpuscular Volume 96 fL (79-100) Mean Corpuscular Hemoglobin 32 pg (25-35) Mean Corpuscular Hemoglobin Concent 34 g/dL (31-37) Red Cell Distribution Width 14.8 % (11.5-14.5) H Platelet Count 169 x10^3/uL (140-400) Neutrophils (%) (Auto) 68 % (31-73) Lymphocytes (%) (Auto) 16 % (24-48) L Monocytes (%) (Auto) 11 % (0-9) H Eosinophils (%) (Auto) 5 % (0-3) H Basophils (%) (Auto) 1 % (0-3) Neutrophils # (Auto) 2.5 x10^3uL (1.8-7.7) Lymphocytes # (Auto) 0.6 x10^3/uL (1.0-4.8) L Monocytes # (Auto) 0.4 x10^3/uL (0.0-1.1) Eosinophils # (Auto) 0.2 x10^3/uL (0.0-0.7) Basophils # (Auto) 0.0 x10^3/uL (0.0-0.2) Sodium Level 144 mmol/L (136-145) Potassium Level 4.2 mmol/L (3.5-5.1) Chloride Level 109 mmol/L (98-107) H Carbon Dioxide Level 28 mmol/L (21-32) Anion Gap 7 (6-14) Blood Urea Nitrogen 15 mg/dL (8-26) Creatinine 0.9 mg/dL (0.7-1.3) Estimated GFR (Cockcroft-Gault) 81.0 BUN/Creatinine Ratio 17 (6-20) Glucose Level 77 mg/dL (70-99) Calcium Level 9.2 mg/dL (8.5-10.1) Total Bilirubin 0.6 mg/dL (0.2-1.0) Aspartate Amino Transferase (AST) 16 U/L (15-37) Alanine Aminotransferase (ALT) 13 U/L (16-63) L Alkaline Phosphatase 66 U/L (46-116) Total Protein 7.1 g/dL (6.4-8.2) Albumin 2.7 g/dL (3.4-5.0) L Albumin/Globulin Ratio 0.6 (1.0-1.7) L Current Medications: Meds: Current Medications Medications (Trade) Dose Ordered Sig/Lit Route PRN Reason Start Time Stop Time Status Last Admin Dose Admin Quetiapine Fumarate (SEROquel) 25 mg DAILY PO 06/11/20 09:00 06/11/20 08:55 I have reviewed the current psychotropics carefully including drug interactions. Risk benefit ratio favors no change other than as noted in my dictated progress note. Diagnosis: Problems: (1) Impulse control disorder, unspecified (2) Anxiety disorder, unspecified (3) Dementia, vascular, with depression (4) Dementia, vascular, with delusions (5) Major neurocognitive disorder, due to vascular disease, with behavioral dis turbance, mild (6) History of alcohol dependence TL SAMUEL MD Jun 12, 2020 07:03
--- NOTE | 2020-06-12 07:19 | PDOC ---
Exam Note: Taurus Note: This note is a late entry for 06/10/2020 covers elements not covered in my initial note. Subjective: The patient was evaluated on telehealth rounds in the evening of 06/10/2020 with Eileen nursing aid as one of the patients on the unit has tested positive for COVID-19 and unit is on a lockdown with no admission and discharges. That is the reason I am doing telehealth rounds to minimize any further spread of the infection. Nursing report with Corby MOREL. He slept 7 hours previous night. He was agitated in the morning, yelling, especially around blood draw but later did better. Review of Systems: Ambulation impaired in wheelchair. No CV, , pulmonary, eye, ENT system symptoms on review. Reliability poor. Gait unsteady. Mental Status Exam: Oriented to himself. Insight and judgment, recent and remote memory, attention and concentration, fund of knowledge is poor consistent with his diagnoses. Laboratory Data: Reviewed. 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 Anxiety disorder unspecified. He is somewhat distractible, anxious, suspicious and dismissive. Plan: The patient is on Seroquel 12.5 mg b.i.d. We will increase the morning dosage to 25 mg. Rest unchanged for now. Assessment: Vital Signs/I&O: Vital Signs Date Time Temp Pulse Resp B/P (MAP) Pulse Ox O2 Delivery O2 Flow Rate FiO2 06/12/20 06:10 73 20 96 06/11/20 21:02 98.1 06/11/20 15:49 113/69 (84) Room Air I & O 06/11/20 06/11/20 06/12/20 15:00 23:00 07:00 Intake Total 480 ml 240 ml Balance 480 ml 240 ml Labs: Laboratory Tests Test 06/11/20 08:30 White Blood Count 3.7 x10^3/uL (4.0-11.0) L Red Blood Count 3.29 x10^6/uL (4.30-5.70) L Hemoglobin 10.6 g/dL (13.0-17.5) L Hematocrit 31.6 % (39.0-53.0) L Mean Corpuscular Volume 96 fL (79-100) Mean Corpuscular Hemoglobin 32 pg (25-35) Mean Corpuscular Hemoglobin Concent 34 g/dL (31-37) Red Cell Distribution Width 14.8 % (11.5-14.5) H Platelet Count 169 x10^3/uL (140-400) Neutrophils (%) (Auto) 68 % (31-73) Lymphocytes (%) (Auto) 16 % (24-48) L Monocytes (%) (Auto) 11 % (0-9) H Eosinophils (%) (Auto) 5 % (0-3) H Basophils (%) (Auto) 1 % (0-3) Neutrophils # (Auto) 2.5 x10^3uL (1.8-7.7) Lymphocytes # (Auto) 0.6 x10^3/uL (1.0-4.8) L Monocytes # (Auto) 0.4 x10^3/uL (0.0-1.1) Eosinophils # (Auto) 0.2 x10^3/uL (0.0-0.7) Basophils # (Auto) 0.0 x10^3/uL (0.0-0.2) Sodium Level 144 mmol/L (136-145) Potassium Level 4.2 mmol/L (3.5-5.1) Chloride Level 109 mmol/L (98-107) H Carbon Dioxide Level 28 mmol/L (21-32) Anion Gap 7 (6-14) Blood Urea Nitrogen 15 mg/dL (8-26) Creatinine 0.9 mg/dL (0.7-1.3) Estimated GFR (Cockcroft-Gault) 81.0 BUN/Creatinine Ratio 17 (6-20) Glucose Level 77 mg/dL (70-99) Calcium Level 9.2 mg/dL (8.5-10.1) Total Bilirubin 0.6 mg/dL (0.2-1.0) Aspartate Amino Transferase (AST) 16 U/L (15-37) Alanine Aminotransferase (ALT) 13 U/L (16-63) L Alkaline Phosphatase 66 U/L (46-116) Total Protein 7.1 g/dL (6.4-8.2) Albumin 2.7 g/dL (3.4-5.0) L Albumin/Globulin Ratio 0.6 (1.0-1.7) L Current Medications: Meds: Current Medications Medications (Trade) Dose Ordered Sig/Lit Route PRN Reason Start Time Stop Time Status Last Admin Dose Admin Quetiapine Fumarate (SEROquel) 25 mg DAILY PO 06/11/20 09:00 06/11/20 08:55 I have reviewed the current psychotropics carefully including drug interactions. Risk benefit ratio favors no change other than as noted in my dictated progress note. Diagnosis: Problems: (1) Impulse control disorder, unspecified (2) Anxiety disorder, unspecified (3) Dementia, vascular, with depression (4) Dementia, vascular, with delusions (5) Major neurocognitive disorder, due to vascular disease, with behavioral disturbance, mild (6) History of alcohol dependence TL SAMUEL MD Jun 12, 2020 07:19
--- NOTE | 2020-06-12 07:29 | PDOC ---
Exam Note: Taurus Note: This note is a late entry for 06/11/2020 covers elements not covered in my initial note. Subjective: The patient was evaluated on telehealth rounds in the evening of 06/11/2020 with Eileen nursing aid as one of the patients on the unit has tested positive for COVID-19 and unit is on a lockdown with no admission and discharges. That is the reason I am doing telehealth rounds to minimize any further spread of the infection. Nursing report with Corby MOREL. He slept 2 hours previous night. Nursing staff are having to crush his meds. He spits them out. Previous night meds had to be syringed. He is irritable at times. Review of Systems: Ambulation impaired in wheelchair. No CV, , pulmonary, eye, ENT system symptoms on review. Mental Status Exam: Reasonably oriented. Insight and judgment, recent and remote memory, attention and concentration, fund of knowledge is poor consistent with his diagnoses. Laboratory Data: Reviewed. 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 Anxiety disorder unspecified. Plan: No change from initial note. Assessment: Vital Signs/I&O: Vital Signs Date Time Temp Pulse Resp B/P (MAP) Pulse Ox O2 Delivery O2 Flow Rate FiO2 06/12/20 06:10 73 20 96 06/11/20 21:02 98.1 06/11/20 15:49 113/69 (84) Room Air I & O 06/11/20 06/11/20 06/12/20 15:00 23:00 07:00 Intake Total 480 ml 240 ml Balance 480 ml 240 ml Labs: Laboratory Tests Test 06/11/20 08:30 White Blood Count 3.7 x10^3/uL (4.0-11.0) L Red Blood Count 3.29 x10^6/uL (4.30-5.70) L Hemoglobin 10.6 g/dL (13.0-17.5) L Hematocrit 31.6 % (39.0-53.0) L Mean Corpuscular Volume 96 fL (79-100) Mean Corpuscular Hemoglobin 32 pg (25-35) Mean Corpuscular Hemoglobin Concent 34 g/dL (31-37) Red Cell Distribution Width 14.8 % (11.5-14.5) H Platelet Count 169 x10^3/uL (140-400) Neutrophils (%) (Auto) 68 % (31-73) Lymphocytes (%) (Auto) 16 % (24-48) L Monocytes (%) (Auto) 11 % (0-9) H Eosinophils (%) (Auto) 5 % (0-3) H Basophils (%) (Auto) 1 % (0-3) Neutrophils # (Auto) 2.5 x10^3uL (1.8-7.7) Lymphocytes # (Auto) 0.6 x10^3/uL (1.0-4.8) L Monocytes # (Auto) 0.4 x10^3/uL (0.0-1.1) Eosinophils # (Auto) 0.2 x10^3/uL (0.0-0.7) Basophils # (Auto) 0.0 x10^3/uL (0.0-0.2) Sodium Level 144 mmol/L (136-145) Potassium Level 4.2 mmol/L (3.5-5.1) Chloride Level 109 mmol/L (98-107) H Carbon Dioxide Level 28 mmol/L (21-32) Anion Gap 7 (6-14) Blood Urea Nitrogen 15 mg/dL (8-26) Creatinine 0.9 mg/dL (0.7-1.3) Estimated GFR (Cockcroft-Gault) 81.0 BUN/Creatinine Ratio 17 (6-20) Glucose Level 77 mg/dL (70-99) Calcium Level 9.2 mg/dL (8.5-10.1) Total Bilirubin 0.6 mg/dL (0.2-1.0) Aspartate Amino Transferase (AST) 16 U/L (15-37) Alanine Aminotransferase (ALT) 13 U/L (16-63) L Alkaline Phosphatase 66 U/L (46-116) Total Protein 7.1 g/dL (6.4-8.2) Albumin 2.7 g/dL (3.4-5.0) L Albumin/Globulin Ratio 0.6 (1.0-1.7) L Current Medications: Meds: Current Medications Medications (Trade) Dose Ordered Sig/Lit Route PRN Reason Start Time Stop Time Status Last Admin Dose Admin Quetiapine Fumarate (SEROquel) 25 mg DAILY PO 06/11/20 09:00 06/11/20 08:55 I have reviewed the current psychotropics carefully including drug interactions. Risk benefit ratio favors no change other than as noted in my dictated progress note. Diagnosis: Problems: (1) Impulse control disorder, unspecified (2) Anxiety disorder, unspecified (3) Dementia, vascular, with depression (4) Dementia, vascular, with delusions (5) Major neurocognitive disorder (6) Major neurocognitive disorder, due to vascular disease, with behavioral disturbance, mild (7) History of alcohol dependence TL SAMUEL MD Jun 12, 2020 07:29
[2020-06-12] MEDS: LOSARTAN 50 MG TABLET. PO SCH (09:00)
[2020-06-12] MEDS: DIVALPROEX 125 MG CAP.SPRINK PO SCH ×2 (09:00→16:44)
[2020-06-12] MEDS: METOPROLOL TART IMMED RELEASE 50 MG TABLET PO SCH ×2 (09:00→19:45)
[2020-06-12] MEDS: THIAMINE 100 MG TABLET. PO SCH (09:00)
[2020-06-12] MEDS: MAGNESIUM OXIDE 400 MG TABLET PO SCH ×3 (09:00→20:48)
[2020-06-12] MEDS: QUEtiapine 25 MG TABLET. PO SCH ×3 (09:00→19:45)
[2020-06-12] MEDS: FOLIC ACID 1 MG TABLET PO SCH (09:00)
[2020-06-12] MEDS: [UNRECOGNIZED DRUG - OTHER] PO SCH (09:00)
[2020-06-12] MEDS: NYSTATIN 100,000 UNIT/GM TOPICAL CREAM 15GM TUBE. TP SCH ×2 (09:00→20:49)
[2020-06-12] MEDS: MULTIVITAMIN PO SCH (09:00)
[2020-06-12] MEDS: POTASSIUM BICARB 20 MEQ EFFERVESCENT TABLET. PO SCH ×2 (09:54→20:49)
[2020-06-12] MEDS: NYSTATIN TOPICAL POWDER 15GM BOTTLE. TP PRN (09:54)
--- NOTE | 2020-06-12 12:52 | NUR ---
Patient in room sitting up in bed during initial assessment. Confused but compliant with assessment. Refused VS for inside finisher but agreed to let me take them. Patient took medication crushed in pudding. Patient COVID tested without difficulty. Will continue to monitor.
[2020-06-12 16:38] VITALS: BP 156/86
--- NOTE | 2020-06-12 17:04 | NUR ---
SIMONE attempted to contact pt dtr, Sara, to inform her of the unit covoid swabs returning. SW left a message re: While pt was negative, one pt was negative; therefore, the unit would quarantine per the Health Department recommendation until June 27. SIMONE will follow up with pt dtr at a later time to ensure she received the message.
--- NOTE | 2020-06-12 17:12 | TX PLAN ---
Interdisciplinary Tx Plan Admission Information May 27, 2020 at 22:24 Legal Status (on Admission): Voluntary DPOA/Guardian Name: Sara Arnold Contact Other Contact Name: [facility] Verified Code Status: DNR Allergies: Coded Allergies: No Known Drug Allergies (Unverified , 05/27/20) Diagnoses Primary Diagnosis: Dementia with BD Reasons for Admission: Agitated, Confusion/Disoriented Problem in Patient's Words: He has noticeably been decreasing in cognition and physical health over the last 6-8 months. Additional Admission Comments: The intake reports that pt is confused and agitated; but no other behaviors or scenarios noted. Problems Active Problems: Agitated Confusion Paranoid Inactive Problems: Mostly medication compliant Pt Strengths/Limitations Ability for Sharon: Poor Cognitive Functioning/Ability: Poor Communication Skills/Ability: Fair Financial Resources: Fair Insight/Judgement: Poor Intellectual Ability: Fair Physical Health: Poor Social Skills: Fair Stability in Family: Good Stability in School/Work: Poor Verbal Skills: Fair Discharge Criteria Discharge Criteria: No need for close observ., Adequate arrangements @DC, Improved behavior, Improved mood/thought Preliminary Discharge Plan Preliminary DC Plan: Placement Needed Special Precautions Fall Risk: Moderate Initial D/C Plan Pt will need a higher level of care; not able to return to [facility] Identified Discharge Needs: Referrals to higher level of care Currently Utilized Resources Currently Utilized Resources/P: Primary Care Physician Referrals Community Resources: Referrals to [facility]/Memory Care facilities Identified Problems/Hx/Goals Objectives/Short-Term Goals Short Term Goals: Dec. Outbursts, Medication Stabilization, Monitor Med Effects, Promote Coping Skill, Other Short Term Goals in Patient's: N/A Interventions/Frequency Staff Interventions/Frequency&: Psychiatrist to assess pt at least 3x per week. Social Work to assess pt at least 2x per week. Nursing to monitor behavior, medications and complete 15 minute checks daily Encourage group participation in activities or 1:1 engagement based off activity dept assessment. 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 He lastly retired from [employer] in [place], [place]. Education: Masters in Education Community Follow-up Continue to follow-up with PCP Community Provider/Family Inpu: I just need help in finding him an appropriate place to go. He wants to go home but I just do not think it is safe right now. 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 Pt continues to be irritable and more combative as the day goes on. Pt was combative last night to the point where pt had to have his medications syringed. Pt did have an increase in Seroquel in which pt is taking Seroquel 25mg daily and at , Seroquel 12.5mg q 1300. At this time, pt is not able to return to [facility] as they cannot maintain his behaviors. SW will be looking for placement with pt dtr and look towards discharge around June 28. TAMMIE DEY Jun 12, 2020 17:11
[2020-06-12] MEDS: MELATONIN 3 MG TABLET PO SCH (19:45)
--- NOTE | 2020-06-12 23:08 | NUR ---
Pt restless and impulsive this evening. Continually trying to get out of bed and becoming resistive with redirection. Non compliant with medications. HS medications administered sublingually. PRN Zyprexa administered. Pt continued to attempt to climb out of bed. Pt placed on mattress in quiet room for safety. Pt restless for a short amount of time in quiet room and then fell asleep.
[2020-06-13 06:33] VITALS: BP 178/84
--- NOTE | 2020-06-13 07:34 | PDOC ---
Exam Note: Taurus Note: This note is a late entry for 06/12/2020 covers elements not covered in my initial note. Subjective: The patient was reviewed at treatment team meeting in the morning on telehealth rounds on 06/12/2020 including Kerry and Virgen, (social service staff), Claudette RN. Nursing report in the evening was with Meme MOREL. He is quite combative previous night and medication had to be syringed. He took his medications crushed today, combative during the COVID screen testing. He slept 6-1/4 hours previous night. Appetite is 75%. Daughter was to attend but could not since she is a teacher. He will have to find new placement since the [facility] is not accepting him back. Review of Systems: Ambulation impaired in wheelchair. No CV, , pulmonary, eye, ENT system symptoms on review. Mental Status Exam: Reasonably oriented. Insight and judgment, recent and remote memory, attention and concentration, fund of knowledge is poor consistent with his diagnoses. Laboratory Data: Reviewed. 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 Anxiety disorder unspecified. Plan: No change from initial note. Dr. Sandoval will be covering for me during my vacation from 06/13/2020 to 06/19/2020. Assessment: Vital Signs/I&O: Vital Signs Date Time Temp Pulse Resp B/P (MAP) Pulse Ox O2 Delivery O2 Flow Rate FiO2 06/13/20 06:33 97.5 71 18 178/84 (115) 99 06/11/20 15:49 Room Air I & O 06/12/20 06/12/20 06/13/20 15:00 23:00 07:00 Intake Total 440 ml 200 ml Balance 440 ml 200 ml Labs: Laboratory Tests Test 06/12/20 11:15 SARS-CoV-2 Antigen (Rapid) Negative (NEGATIVE) Current Medications: I have reviewed the current psychotropics carefully including drug interactions. Risk benefit ratio favors no change other than as noted in my dictated progress note. Diagnosis: Problems: (1) Impulse control disorder, unspecified (2) Anxiety disorder, unspecified (3) Dementia, vascular, with depression (4) Dementia, vascular, with delusions (5) Major neurocognitive disorder (6) Major neurocognitive disorder, due to vascular disease, with behavioral disturbance, mild (7) History of alcohol dependence TL SAMUEL MD Jun 13, 2020 07:34
[2020-06-13] MEDS: LOSARTAN 50 MG TABLET. PO SCH (09:17)
[2020-06-13] MEDS: FOLIC ACID 1 MG TABLET PO SCH (09:17)
[2020-06-13] MEDS: METOPROLOL TART IMMED RELEASE 50 MG TABLET PO SCH ×2 (09:17→21:04)
[2020-06-13] MEDS: DIVALPROEX 125 MG CAP.SPRINK PO SCH ×2 (09:18→17:08)
[2020-06-13] MEDS: MAGNESIUM OXIDE 400 MG TABLET PO SCH ×3 (09:19→21:04)
[2020-06-13] MEDS: THIAMINE 100 MG TABLET. PO SCH (09:19)
[2020-06-13] MEDS: POTASSIUM BICARB 20 MEQ EFFERVESCENT TABLET. PO SCH ×2 (09:20→21:05)
[2020-06-13] MEDS: QUEtiapine 25 MG TABLET. PO SCH ×3 (09:20→21:04)
[2020-06-13] MEDS: NYSTATIN 100,000 UNIT/GM TOPICAL CREAM 15GM TUBE. TP SCH ×2 (09:39→21:00)
[2020-06-13] MEDS: [UNRECOGNIZED DRUG - OTHER] PO SCH (09:39)
[2020-06-13] MEDS: MULTIVITAMIN PO SCH (09:39)
--- NOTE | 2020-06-13 11:41 | NUR ---
Patient initially sitting calmly in a chair in the hallway with his bedside table in front of him. He was wearing mask as required with COVID precautions. Patient is less oriented than on previous interactions with this nurse and he seemed to not know what to do with the medications. Nurse had to tell him step by step what to do to take them (put the pill in your mouth, take a drink now, etc). In between each medication he would set the juice down next to the medication cup. He did this several times and had to be reminded to finish the pills. He seems to have worsening cognition although his gait has improved and he walked in the hallway with a walker. Later patient was noted to be sitting in the chair in the room and staring straight ahead. Patient responds when spoken to but does not initiate conversations as he previously did.
--- NOTE | 2020-06-13 12:06 | NUR ---
Patient is singing in a loud voice. It sounds like a made up song and is repetitive but not rhyming.
[2020-06-13 16:19] VITALS: BP 141/75
--- NOTE | 2020-06-13 16:33 | NUR ---
SIMONE contacted Saranya, david spelling, pt dtr to see if she received SIMONE voicemail. Saranya reports that she did and understands 2 more weeks of quarantine. Both parties discussed continuing to look for placement and pt current behavior of combativeness, restlessness and non-compliance. Pt dtr would like something in writing with pt diagnosis. SIMONE can get that form over to pt dtr later this week.
--- NOTE | 2020-06-13 17:42 | NUR ---
Patient is very disorganized today and has gotten worse this afternoon. Medication provided in pudding. Patient picking at his dinner and continues to read the newspaper that he has had since this morning. Staff encouraged patient to eat, patient becoming agitated. Patient attempted to come out of his room and was redirected by staff.
[2020-06-13] MEDS: MELATONIN 3 MG TABLET PO SCH (21:05)
--- NOTE | 2020-06-13 22:24 | PN ---
DATE: 06/13/2020 SUBJECTIVE: The patient was evaluated today on daily rounds, discussed with the staff, reviewed his current medications and labs. Staff reports some emotional lability, confusion, refusing his medications. He has received p.r.n. Zyprexa Zydis. No falls. OBJECTIVE: VITAL SIGNS: Temperature 97.9, blood pressure 178/89, pulse 71, respirations 18, O2 sat 94%. GENERAL: Slept about 6 hours last night. The patient's appetite is fair. LABORATORY DATA: The patient's lab reviewed. No significant change from previous levels. MEDICATIONS: The patient's current medications include Seroquel 25 mg t.i.d.; Depakote 250 mg daily, 500 mg at night. The patient is also on p.r.n. olanzapine 2.5 mg q. 2 hours p.r.n. The patient is also on melatonin 6 mg at night for sleep. The patient is not having any side effects to the medications. ASSESSMENT: 1. Major neurocognitive disorder, multifactorial secondary to alcohol, vascular with delusions and depression and behavioral disturbances. 2. History of alcohol dependence. PLAN: To continue with the current treatment plan. LENGTH OF STAY: 5 days. SHANTI TOBIAS MD DR: ANTHONY/teo JOB#: [id number] / [id number]
--- NOTE | 2020-06-14 02:17 | NUR ---
JOYCE mccoy was given at 0200. Pt was becoming louder and argumentative with staff and refusing to stay in room. He was placed in [place] and med syringed. 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
--- NOTE | 2020-06-14 03:59 | NUR ---
Pt has now calmed, he has been sitting quietly for awhile and requested to go back to bed.
[2020-06-14 06:38] VITALS: BP 160/82
[2020-06-14] MEDS: NYSTATIN 100,000 UNIT/GM TOPICAL CREAM 15GM TUBE. TP SCH ×2 (09:00→20:39)
[2020-06-14] MEDS: METOPROLOL TART IMMED RELEASE 50 MG TABLET PO SCH ×2 (09:30→20:37)
[2020-06-14] MEDS: THIAMINE 100 MG TABLET. PO SCH (09:30)
[2020-06-14] MEDS: MAGNESIUM OXIDE 400 MG TABLET PO SCH ×3 (09:30→20:37)
[2020-06-14] MEDS: QUEtiapine 25 MG TABLET. PO SCH ×3 (09:30→20:36)
[2020-06-14] MEDS: POTASSIUM BICARB 20 MEQ EFFERVESCENT TABLET. PO SCH ×2 (09:30→20:36)
[2020-06-14] MEDS: DIVALPROEX 125 MG CAP.SPRINK PO SCH ×2 (09:31→17:01)
[2020-06-14] MEDS: FOLIC ACID 1 MG TABLET PO SCH (09:31)
[2020-06-14] MEDS: [UNRECOGNIZED DRUG - OTHER] PO SCH (09:31)
[2020-06-14] MEDS: MULTIVITAMIN PO SCH (09:31)
[2020-06-14] MEDS: LOSARTAN 50 MG TABLET. PO SCH (09:31)
--- NOTE | 2020-06-14 10:56 | NUR ---
Patient resistive with morning medications. Nurse was able to convince him to take psychotropes whole and the chewable vitamin. Remaining medications were crushed and hidden in pudding. Patient ate the pudding. He refuses the ointment for his chest. Patient appears to be in a foul mood and has ordered several people out of his room. Patient is singing nonsensical songs very loudly in his room. He is disorganized and oriented only to himself at this time. He refuses physical assessment and has been uncooperative this morning. He is sitting in the chair in his room with his mask on.
[2020-06-14 16:07] VITALS: BP 123/73
[2020-06-14] MEDS: MELATONIN 3 MG TABLET PO SCH (20:36)
--- NOTE | 2020-06-14 22:09 | PN ---
DATE: 06/14/2020 SUBJECTIVE: The patient was evaluated today by the tele rounds, met with the staff and chart reviewed. Staff reports increased confusion, emotional lability and also refusing medications at times and not sleeping well. OBSERVATION: VITAL SIGNS: Temperature 97.5, blood pressure 160/82, pulse 74, respirations 18, O2 sat 98%. GENERAL: Slept only about 4 hours last night. CURRENT MEDICATIONS: The patient's current medications include Seroquel 25 mg t.i.d., Depakote 250 mg daily and 500 mg at night. The patient is also on olanzapine 2.5 mg q.2 hours p.r.n. and melatonin 6 mg at night. He is not having any side effects. Staff reports no medical issues, no falls. ASSESSMENT: 1. 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 2. History of alcohol dependence. PLAN: To continue with the current treatment plan. LENGTH OF STAY: 5 days. SHANTI TOBIAS MD DR: ANTHONY/teo JOB#: [id number] / [id number]
--- NOTE | 2020-06-15 00:36 | NUR ---
Pt has been very confused tonight, at times he talks to people not present. He seems to think he is teaching a class or in a meeting. Meds were given crushed in ensure. After his meds he went to sleep. He has had no behaviors tonight.
[2020-06-15 06:42] VITALS: BP 119/69
[2020-06-15] MEDS: QUEtiapine 25 MG TABLET. PO SCH ×3 (08:29→19:23)
[2020-06-15] MEDS: THIAMINE 100 MG TABLET. PO SCH (08:30)
[2020-06-15] MEDS: LOSARTAN 50 MG TABLET. PO SCH (08:30)
[2020-06-15] MEDS: METOPROLOL TART IMMED RELEASE 50 MG TABLET PO SCH ×2 (08:30→19:23)
[2020-06-15] MEDS: MAGNESIUM OXIDE 400 MG TABLET PO SCH ×3 (08:30→19:23)
[2020-06-15] MEDS: DIVALPROEX 125 MG CAP.SPRINK PO SCH ×2 (08:30→17:35)
[2020-06-15] MEDS: FOLIC ACID 1 MG TABLET PO SCH (08:30)
[2020-06-15] MEDS: POTASSIUM BICARB 20 MEQ EFFERVESCENT TABLET. PO SCH ×2 (08:31→19:23)
[2020-06-15] MEDS: [UNRECOGNIZED DRUG - OTHER] PO SCH (08:32)
[2020-06-15] MEDS: NYSTATIN 100,000 UNIT/GM TOPICAL CREAM 15GM TUBE. TP SCH ×2 (08:32→19:23)
[2020-06-15] MEDS: MULTIVITAMIN PO SCH (08:32)
--- NOTE | 2020-06-15 11:42 | NUR ---
Patient took medications crushed and hidden in yogurt. He is upset that he has to be in the day room while the floors are being deep cleaned. One floors were clean nurse assisted patient to his room. Shortly after that patient was observed crawling on the floor of his room. 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 Patient oriented to self only and thinks that we are on a college campus.
[2020-06-15 15:50] VITALS: BP 109/69
--- NOTE | 2020-06-15 17:50 | NUR ---
Patient slapped spoon containing pudding with medication out of this nurses hand. Nurse pulled medications again and will administer in ice cream. Addendum: 06/15/20 at 1828 by CHEYENNE ZAMORA RN Patient ate the chocolate ice cream with the medications hidden in it.
[2020-06-15] MEDS: MELATONIN 3 MG TABLET PO SCH (19:23)
--- NOTE | 2020-06-15 20:42 | PN ---
DATE: 06/15/2020 SUBJECTIVE: The patient was evaluated today via telehealth rounds, I discussed with the staff, chart reviewed. Staff reports no major behavior problems except he is confused, able to hold a conversation, but incoherent. OBSERVATION: The patient's sleep fluctuates, appetite is fair. MEDICATIONS: The patient's current medications include Seroquel 25 mg t.i.d., Depakote 250 mg daily and 500 mg at night, olanzapine 2.5 mg q. 2 hours p.r.n. The patient is also on melatonin 6 mg at night for sleep. The patient denies of any side effects. No recent falls. ASSESSMENT: 1. 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 2. History of alcohol dependence. PLAN: To continue with the treatment. LENGTH OF STAY: 5 days. SHANTI TOBIAS MD DR: ANTHONY/teo JOB#: [id number] / [id number]
--- NOTE | 2020-06-16 04:08 | NUR ---
Last evening pt was in bed and was very confused. He was resistive to meds and they were given crushed in 1cc liquid. He has been sleepin and now awoke and very confused yelling and resistive to staff. He is in [place] PRN zyprexa was given dissolved in juice, he is now sitting quietly in a chair and seems to be calming.
[2020-06-16 05:49] VITALS: BP 117/78
[2020-06-16] MEDS: MULTIVITAMIN PO SCH (08:15)
[2020-06-16] MEDS: [UNRECOGNIZED DRUG - OTHER] PO SCH (08:15)
[2020-06-16] MEDS: LOSARTAN 50 MG TABLET. PO SCH (08:17)
[2020-06-16] MEDS: DIVALPROEX 125 MG CAP.SPRINK PO SCH ×2 (08:17→17:09)
[2020-06-16] MEDS: METOPROLOL TART IMMED RELEASE 50 MG TABLET PO SCH ×2 (08:18→19:57)
[2020-06-16] MEDS: POTASSIUM BICARB 20 MEQ EFFERVESCENT TABLET. PO SCH ×2 (08:18→19:58)
[2020-06-16] MEDS: QUEtiapine 25 MG TABLET. PO SCH ×3 (08:19→19:55)
[2020-06-16] MEDS: MAGNESIUM OXIDE 400 MG TABLET PO SCH ×3 (09:00→19:57)
[2020-06-16] MEDS: NYSTATIN 100,000 UNIT/GM TOPICAL CREAM 15GM TUBE. TP SCH ×2 (09:00→19:58)
[2020-06-16] MEDS: THIAMINE 100 MG TABLET. PO SCH (09:00)
[2020-06-16] MEDS: FOLIC ACID 1 MG TABLET PO SCH (09:00)
--- NOTE | 2020-06-16 09:30 | NUR ---
Covid and rapid done and sent to lab.
--- NOTE | 2020-06-16 12:10 | NUR ---
Pt is disorganized and confused wandering in the [facility]. 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 He at his breakfast and read a loud from a book and asked my opinion on the book. No aggression at this time. He is able to be redirected with encouragement and simple instructions. He is compliant with his medication and assessment.
[2020-06-16 16:05] VITALS: BP 87/42
[2020-06-16] MEDS: MELATONIN 3 MG TABLET PO SCH (19:57)
[2020-06-16 20:40] VITALS: BP 128/70
--- NOTE | 2020-06-16 22:00 | NUR ---
Patient is in his room on assumption of care, awake in his bed. He is irritable and difficult to redirect. Compliant with assessments but resistant to taking meds crushed in ice cream. 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 I don't know who hired you but you are incompetent, you should be fired." Patient medications re-pulled, crushed and mixed with orange juice, which patient consumed without issue. Patient does not appear to be experiencing any pain or discomfort. He appears to be sleeping comfortably at present time.
--- NOTE | 2020-06-16 22:04 | PN ---
DATE: 06/16/2020 SUBJECTIVE: The patient was evaluated via telehealth rounds, met with the staff, chart reviewed. Staff reports no major behavior problems. Still confused. OBSERVATION: VITAL SIGNS: Temperature 97.4, blood pressure 117/78, pulse 88, respirations 18, and O2 sat 99%. GENERAL: Slept about 5 hours last night. The patient's appetite is fair. The patient is not having any side effects. ASSESSMENT: 1. 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 2. History of alcohol dependence. PLAN: To continue with the treatment. LENGTH OF STAY: 5 days. SHANTI TOBIAS MD DR: ANTHONY/teo JOB#: [id number] / [id number]
[2020-06-17 06:07] VITALS: BP 138/72
[2020-06-17] MEDS: MAGNESIUM OXIDE 400 MG TABLET PO SCH ×3 (08:09→19:49)
[2020-06-17] MEDS: DIVALPROEX 125 MG CAP.SPRINK PO SCH ×2 (08:09→17:12)
[2020-06-17] MEDS: LOSARTAN 50 MG TABLET. PO SCH (08:09)
[2020-06-17] MEDS: METOPROLOL TART IMMED RELEASE 50 MG TABLET PO SCH ×2 (08:09→19:47)
[2020-06-17] MEDS: THIAMINE 100 MG TABLET. PO SCH (08:09)
[2020-06-17] MEDS: FOLIC ACID 1 MG TABLET PO SCH (08:10)
[2020-06-17] MEDS: QUEtiapine 25 MG TABLET. PO SCH ×3 (08:10→19:47)
[2020-06-17] MEDS: POTASSIUM BICARB 20 MEQ EFFERVESCENT TABLET. PO SCH ×2 (08:10→19:47)
[2020-06-17] MEDS: NYSTATIN 100,000 UNIT/GM TOPICAL CREAM 15GM TUBE. TP SCH ×2 (08:10→19:46)
[2020-06-17] MEDS: [UNRECOGNIZED DRUG - OTHER] PO SCH (08:11)
[2020-06-17] MEDS: MULTIVITAMIN PO SCH (08:11)
[2020-06-17 16:17] VITALS: BP 158/72
[2020-06-17] MEDS: MELATONIN 3 MG TABLET PO SCH (19:50)
--- NOTE | 2020-06-17 21:17 | NUR ---
Patient is in his room on assumption of care, awake in his bed. Irritable, difficult to redirect. Compliant with assessments and medications crushed in orange juice. Patient denies any pain or discomfort. Appears to be sleeping comfortably at present time.
[2020-06-18 06:11] VITALS: BP 145/62
[2020-06-18] MEDS: MULTIVITAMIN PO SCH (08:11)
[2020-06-18] MEDS: [UNRECOGNIZED DRUG - OTHER] PO SCH (08:11)
[2020-06-18] MEDS: LOSARTAN 50 MG TABLET. PO SCH (08:12)
[2020-06-18] MEDS: DIVALPROEX 125 MG CAP.SPRINK PO SCH ×2 (08:12→17:03)
[2020-06-18] MEDS: METOPROLOL TART IMMED RELEASE 50 MG TABLET PO SCH ×2 (08:13→19:26)
[2020-06-18] MEDS: QUEtiapine 25 MG TABLET. PO SCH ×3 (08:13→19:24)
[2020-06-18] MEDS: POTASSIUM BICARB 20 MEQ EFFERVESCENT TABLET. PO SCH ×2 (08:14→19:25)
[2020-06-18] MEDS: THIAMINE 100 MG TABLET. PO SCH (09:00)
[2020-06-18] MEDS: NYSTATIN 100,000 UNIT/GM TOPICAL CREAM 15GM TUBE. TP SCH ×2 (09:00→19:27)
[2020-06-18] MEDS: FOLIC ACID 1 MG TABLET PO SCH (09:00)
[2020-06-18] MEDS: MAGNESIUM OXIDE 400 MG TABLET PO SCH ×3 (09:00→19:25)
--- NOTE | 2020-06-18 09:50 | PN ---
DATE: 06/17/2020 SUBJECTIVE: The patient was seen today by telehealth rounds, met with the staff, and chart reviewed and also covering for Dr. Hauser. Staff reports no problems. He is compliant with the treatment. OBSERVATION: VITAL SIGNS: Temperature 97.8, blood pressure 138/72, pulse 76, respirations 18, O2 sat 99%. GENERAL: Slept about 7 hours last night. The patient's appetite is fair. The patient is not presenting with any physical complaints. ASSESSMENT: 1. Major neurocognitive disorder, multifactorial, secondary to alcohol, vascular with delusions, depression, and behavioral disturbances. 2. History of alcohol dependence. The patient will continue on his current medications including Seroquel 25 mg t.i.d., Depakote 250 mg in the morning and 500 at night and also on olanzapine 2.5 mg q. 2 hours p.r.n. LENGTH OF STAY: 5-7 days. SHANTI TOBIAS MD DR: ANTHONY/teo JOB#: [id number] / [id number]
--- NOTE | 2020-06-18 11:30 | NUR ---
Pt is disorganized and confused wandering in the [facility] and his room. 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 He believes his nurse is his personnel assistant. No aggression at this time. He is able to be redirected with encouragement and simple instructions. He is compliant with his medication crushed in orange juice. He is compliant with his assessment.
--- NOTE | 2020-06-18 12:17 | PN ---
DATE: 06/18/2020 SUBJECTIVE: The patient was evaluated by tele rounds, met with the staff, chart reviewed and also covering for Dr. Hauser. The patient continues to be delusional, was awake at 4:00 this morning, could not go back to sleep, confused and also verbally abusive at times towards staff. OBSERVATION: VITAL SIGNS: Temperature 98.3, blood pressure 145/62, pulse 69, respirations 16, O2 sat 97%. GENERAL: Slept about 7 hours last night. CURRENT MEDICATIONS: The patient's current medications include Seroquel 25 mg t.i.d., Depakote 250 mg in the morning and 500 mg at night, also olanzapine 2.5 mg q. 2 hours p.r.n. The patient is not having any side effects. ASSESSMENT: 1. 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 2. History of alcohol dependence. PLAN: The patient's Seroquel was changed to 50 mg at night because he is not sleeping well. Continue with other medications. LENGTH OF STAY: 5-7 days. SHANTI TOBIAS MD DR: ANTHONY/teo JOB#: [id number] / [id number] RAUL
[2020-06-18 16:26] VITALS: BP 133/61
[2020-06-18 17:45] LABS: BASO % 0 % (0-3); EOS # 0.1 x10^3/uL (0.0-0.7); EOS % 3 % (0-3); HEMATOCRIT 31.8 % (39.0-53.0); HEMOGLOBIN 10.7 g/dL (13.0-17.5); LYMPH # 0.8 x10^3/uL (1.0-4.8); LYMPH % 20 % (24-48); MEAN CORPUSCULAR HEMOGLOBIN 33 pg (25-35); MEAN CORPUSCULAR HGB CONC 34 g/dL (31-37); MEAN CORPUSCULAR VOLUME 97 fL (79-100); MONO # 0.6 x10^3/uL (0.0-1.1); MONO % 15 % (0-9); NEUT # 2.5 x10^3uL (1.8-7.7); NEUT % 62 % (31-73); PLATELET COUNT 169 x10^3/uL (140-400); RED BLOOD COUNT 3.27 x10^6/uL (4.30-5.70); RED CELL DISTRIBUTION WIDTH 14.5 % (11.5-14.5)
[2020-06-18 17:53] LABS: ALBUMIN/GLOBULIN RATIO 0.6 (1.0-1.7); CALCIUM 9.9 mg/dL (8.5-10.1); CREATININE 1.2 mg/dL (0.7-1.3); GFR 58.1; POTASSIUM 4.5 mmol/L (3.5-5.1); TOTAL BILIRUBIN 0.9 mg/dL (0.2-1.0); TOTAL PROTEIN 7.9 g/dL (6.4-8.2)
[2020-06-18] MEDS: MELATONIN 3 MG TABLET PO SCH (19:26)
--- NOTE | 2020-06-18 20:59 | NUR ---
Patient is in his room on assumption of care, awake in his bed. Irritable, difficult to redirect. Compliant with assessments and medications crushed in orange juice. Patient denies any pain or discomfort. Presently, he is laying in his bed, fiddling around with some papers and books. Will continue to monitor.
[2020-06-19 05:59] VITALS: BP 152/70
[2020-06-19] MEDS: NYSTATIN 100,000 UNIT/GM TOPICAL CREAM 15GM TUBE. TP SCH ×2 (08:55→19:43)
[2020-06-19] MEDS: [UNRECOGNIZED DRUG - OTHER] PO SCH (09:15)
[2020-06-19] MEDS: MULTIVITAMIN PO SCH (09:15)
[2020-06-19] MEDS: METOPROLOL TART IMMED RELEASE 50 MG TABLET PO SCH ×2 (09:16→19:37)
[2020-06-19] MEDS: LOSARTAN 50 MG TABLET. PO SCH (09:16)
[2020-06-19] MEDS: DIVALPROEX 125 MG CAP.SPRINK PO SCH ×2 (09:17→16:56)
[2020-06-19] MEDS: POTASSIUM BICARB 20 MEQ EFFERVESCENT TABLET. PO SCH ×2 (09:17→19:36)
[2020-06-19] MEDS: THIAMINE 100 MG TABLET. PO SCH (09:17)
[2020-06-19] MEDS: MAGNESIUM OXIDE 400 MG TABLET PO SCH ×3 (09:17→19:36)
[2020-06-19] MEDS: FOLIC ACID 1 MG TABLET PO SCH (09:17)
[2020-06-19] MEDS: QUEtiapine 25 MG TABLET. PO SCH ×3 (09:17→19:37)
--- NOTE | 2020-06-19 09:32 | NUR ---
Patient was in [facility] yelling about a basketball game. Patient very resistive to chewable vitamin and angry that nurse offered to open his milk for him. He remains agitated about the basketball game being interrupted. PRN zydis given with morning medications crushed in vanilla pudding. Potassium was given dissolved in orange juice.
--- NOTE | 2020-06-19 10:15 | NUR ---
Patient is back in [facility] for continually coming out of his room without a mask on despite being told by several people to put mask on. Patient remains agitated, kicking the wall below the window and yelling at this nurse. Lights turned down in the hallway and nurses station to de-escalate his behaviors. Patient continued to be agitated and was then ramming his walker into the double doors. Staff removed patients walker and he was directed to sit in a chair for safety. Patient elected to lay down on mats in quiet room and is now resting calmly.
--- NOTE | 2020-06-19 13:12 | NUR ---
Patient is still in [facility]. Immediately after lunch he was observed attempting to use bedside table as a walker. Patient became angry at this nurse when he was directed to use his walker and NOT the bedside table. The table slid causing him to go onto floor. Patient did not strike head. Patient has done this multiple times during his stay. He continues to use the tables as a walker. Tray table removed from hallway and patient assisted to quiet room to rest on the mats. Patient encouraged to lay on the mats and take a nap. He is currently calm, lying on the mats talking to himself.
--- NOTE | 2020-06-19 14:12 | NUR ---
Patient has been taking his brief off multiple times this day and has required assistance to get dressed. Patient remains in [facility]. Will continue to monitor. Addendum: 06/19/20 at 1449 by CHEYENNE ZAMORA RN Patient has his gown off again and is now sitting cross legged in the doorway to the quiet room in his brief yelling "Hurry, hurry, hurry". He has been touching his penis but does not appear to be masturbating. He is now talking about swimming. His conversation topics do not seem relative to each other. He is oriented to self only at this time. He seems to be having a conversation with someone not present.
[2020-06-19 16:09] VITALS: BP 160/84
[2020-06-19] MEDS: MELATONIN 3 MG TABLET PO SCH (19:37)
--- NOTE | 2020-06-19 20:14 | PN ---
DATE: 06/19/2020 SUBJECTIVE: The patient was seen today on telehealth rounds, met with the staff, and chart reviewed. Staff reports no major behavior problems, still delusional and paranoid at times. OBSERVATION: Vital signs stable. His appetite is good. MEDICATIONS: The patient's current medications include olanzapine 5 mg daily, Seroquel 25 mg 3 times a day, Depakote 250 mg daily and 500 mg at night. He is also on olanzapine 2.5 mg q. 2 hours p.r.n. The patient is not having any side effects to medications. ASSESSMENT: 1. 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 2. History of alcohol dependence. PLAN: To continue with the treatment. The patient's Seroquel was increased to 50 mg at night because of not sleeping well. LABORATORY DATA: The patient's lab reviewed, which were all within normal range except for the BUN was 27, creatinine was 1.2, GFR 58.1, BUN/creatinine ratio 23. LENGTH OF STAY: 5-6 days. SHANTI TOBIAS MD DR: ANTHONY/teo JOB#: [id number] / [id number]
[2020-06-19] MEDS ORDERED: OLANZapine 5 MG TABLET PO ONE (21:00)
--- NOTE | 2020-06-19 22:44 | NUR ---
Pt has been in the [facility] this evening. He has been having rambling conversations with self and not able to sate other than name and . Meds were given crushed in juice. Approx 1 hour after meds he was sleeping in chair then placed in bed he has been sleeping for awhile now.
[2020-06-20 06:02] VITALS: BP 137/82
[2020-06-20] MEDS: MULTIVITAMIN PO SCH (08:26)
[2020-06-20] MEDS: [UNRECOGNIZED DRUG - OTHER] PO SCH (08:26)
[2020-06-20] MEDS: FOLIC ACID 1 MG TABLET PO SCH (08:26)
[2020-06-20] MEDS: METOPROLOL TART IMMED RELEASE 50 MG TABLET PO SCH ×2 (08:27→20:00)
[2020-06-20] MEDS: MAGNESIUM OXIDE 400 MG TABLET PO SCH ×3 (08:27→20:00)
[2020-06-20] MEDS: LOSARTAN 50 MG TABLET. PO SCH (08:27)
[2020-06-20] MEDS: THIAMINE 100 MG TABLET. PO SCH (08:27)
[2020-06-20] MEDS: DIVALPROEX 125 MG CAP.SPRINK PO SCH ×2 (08:27→17:21)
[2020-06-20] MEDS: QUEtiapine 25 MG TABLET. PO SCH ×3 (08:28→20:00)
[2020-06-20] MEDS: POTASSIUM BICARB 20 MEQ EFFERVESCENT TABLET. PO SCH ×2 (08:28→20:00)
[2020-06-20] MEDS: NYSTATIN 100,000 UNIT/GM TOPICAL CREAM 15GM TUBE. TP SCH ×3 (08:29→21:00)
--- NOTE | 2020-06-20 11:14 | NUR ---
Nurse attempted to provide patients morning medications crushed in yogurt. Patient threw water cup at nurse and yelled "get out of my room, your'e a jerk". Nurse left room, removed bedside table at that time. Patient is confused and often attempts to use bedside table as an ambulation device. At 1100 patient was sitting in the chair in his room looking at the newspaper. Nurse brought the yogurt containing the crushed morning medications and orange juice with potassium into patient on bedside table and told patient it was "snack time". Patient accepting of snack and consumed yogurt. Bedside table removed from room. Patient is grumpy and disorganized. He is easily agitated, delusional and confused.
[2020-06-20 16:00] VITALS: BP 114/58
[2020-06-20] MEDS: MELATONIN 3 MG TABLET PO SCH (20:00)
--- NOTE | 2020-06-20 22:13 | PDOC ---
Exam Note: Taurus Note: Please also refer to the separate dictated note~for this date of service dictated separately.~Patient seen individually. Discussed the patient with Nursing staff reviewed the chart.~Reviewed interim history and current functioning. Reviewed vital signs,~Labs/ Radiology~and current medications noted below. Continue current treatment with the changes noted in the dictated addendum note Assessment: Vital Signs/I&O: Vital Signs Date Time Temp Pulse Resp B/P (MAP) Pulse Ox O2 Delivery O2 Flow Rate FiO2 06/20/20 20:00 63 114/58 06/20/20 19:43 99.3 91 06/20/20 16:00 18 06/19/20 16:09 94.0 06/17/20 16:17 Room Air I & O 06/19/20 06/19/20 06/20/20 15:00 23:00 07:00 Intake Total 360 ml 480 ml Balance 360 ml 480 ml Current Medications: I have reviewed the current psychotropics carefully including drug interactions. Risk benefit ratio favors no change other than as noted in my dictated progress note. Diagnosis: Problems: (1) Impulse control disorder, unspecified (2) Anxiety disorder, unspecified (3) Dementia, vascular, with depression (4) Dementia, vascular, with delusions (5) Major neurocognitive disorder (6) Major neurocognitive disorder, due to vascular disease, with behavioral disturbance, mild (7) History of alcohol dependence TL SAMUEL MD Jun 20, 2020 22:13
--- NOTE | 2020-06-20 23:53 | NUR ---
This evening pt walked in his room or [place], at times he would yell, call for someone not here or have conversation with self. He is stable walking and uses his walker when up. Meds were taken crushed in orange juice. He was somewhat resistive with care yelling at staff and making insulting comments. Since going to bed he has been sleeping.
[2020-06-21 06:08] VITALS: BP 123/83
[2020-06-21] MEDS: QUEtiapine 25 MG TABLET. PO SCH ×3 (07:40→19:11)
[2020-06-21] MEDS: LOSARTAN 50 MG TABLET. PO SCH (07:40)
[2020-06-21] MEDS: MAGNESIUM OXIDE 400 MG TABLET PO SCH ×3 (07:40→19:11)
[2020-06-21] MEDS: METOPROLOL TART IMMED RELEASE 50 MG TABLET PO SCH ×2 (07:41→19:10)
[2020-06-21] MEDS: FOLIC ACID 1 MG TABLET PO SCH (07:41)
[2020-06-21] MEDS: DIVALPROEX 125 MG CAP.SPRINK PO SCH ×2 (07:41→17:27)
[2020-06-21] MEDS: THIAMINE 100 MG TABLET. PO SCH (07:41)
[2020-06-21] MEDS: NYSTATIN 100,000 UNIT/GM TOPICAL CREAM 15GM TUBE. TP SCH ×2 (07:42→21:00)
[2020-06-21] MEDS: POTASSIUM BICARB 20 MEQ EFFERVESCENT TABLET. PO SCH ×2 (07:42→19:16)
[2020-06-21] MEDS: [UNRECOGNIZED DRUG - OTHER] PO SCH (07:42)
[2020-06-21] MEDS: MULTIVITAMIN PO SCH (07:42)
--- NOTE | 2020-06-21 10:23 | PDOC ---
Exam Note: Taurus Note: This note is a late entry for 06/20/2020 covers elements not covered in my initial note. Subjective: The patient was evaluated on telehealth rounds in the evening of 06/20/2020 with [facility]. The unit is shut down due to COVID-19 exposure on the unit with no admissions and discharges for now. Dr. Sandoval has covered for me for the past several days since I had been on vacation. Reviewed information with Dr. Sandoval. Per Meaghan MOREL, he slept 4-1/2 hours previous night. He received Zyprexa 5 mg one time for agitation. In the morning he was agitated through water on the floor in the room, touching female nursing staff but redirected. Review of Systems: No CV, , pulmonary, eye, ENT system symptoms on review. Reliability poor. 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 He still remains confused, less delusional. No suicidal or homicidal ideation. Laboratory Data: Reviewed. 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 Anxiety disorder unspecified. Plan: No change from initial note. Assessment: Vital Signs/I&O: Vital Signs Date Time Temp Pulse Resp B/P (MAP) Pulse Ox O2 Delivery O2 Flow Rate FiO2 06/21/20 07:41 78 123/83 06/21/20 06:08 97.8 16 99 06/19/20 16:09 94.0 06/17/20 16:17 Room Air I & O 06/20/20 06/20/20 06/21/20 15:00 23:00 07:00 Intake Total 360 ml 460 ml Balance 360 ml 460 ml Current Medications: I have reviewed the current psychotropics carefully including drug interactions. Risk benefit ratio favors no change other than as noted in my dictated progress note. Diagnosis: Problems: (1) Impulse control disorder, unspecified (2) Anxiety disorder, unspecified (3) Dementia, vascular, with depression (4) Dementia, vascular, with delusions (5) Major neurocognitive disorder (6) Major neurocognitive disorder, due to vascular disease, with behavioral disturbance, mild (7) History of alcohol dependence JIMMIE,MAN M MD Jun 21, 2020 10:23
--- NOTE | 2020-06-21 11:51 | NUR ---
Patient medications given hidden in orange juice and yogurt with his breakfast. Patient will not willingly take medications. He refuses the cream/ointment daily. Patient has stayed in his room most of the morning. He is irritable and grumpy. 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
[2020-06-21 16:06] VITALS: BP 149/70
--- NOTE | 2020-06-21 18:17 | NUR ---
Patient refused to speak to dr. blankenship on zoom video call. He stated "thats not my doctor, i don't know him". After the call, patient got up out of bed and went into hallway without his mask. When staff asked him to put the mask on he became angry and refused. Patient is now sitting in west hallway singing at times and slamming his walker around on the floor at other times. Will continue to monitor.
[2020-06-21] MEDS: MELATONIN 3 MG TABLET PO SCH (19:11)
--- NOTE | 2020-06-21 21:57 | PDOC ---
Exam Note: Taurus Note: Please also refer to the separate dictated note~for this date of service dictated separately.~Patient seen individually. Discussed the patient with Nursing staff reviewed the chart.~Reviewed interim history and current functioning. Reviewed vital signs,~Labs/ Radiology~and current medications noted below. Continue current treatment with the changes noted in the dictated addendum note Assessment: Vital Signs/I&O: Vital Signs Date Time Temp Pulse Resp B/P (MAP) Pulse Ox O2 Delivery O2 Flow Rate FiO2 06/21/20 19:48 98.8 99 06/21/20 19:10 60 149/70 06/21/20 16:06 17 06/19/20 16:09 94.0 06/17/20 16:17 Room Air I & O 06/20/20 06/20/20 06/21/20 15:00 23:00 07:00 Intake Total 360 ml 460 ml Balance 360 ml 460 ml Current Medications: I have reviewed the current psychotropics carefully including drug interactions. Risk benefit ratio favors no change other than as noted in my dictated progress note. Diagnosis: Problems: (1) Impulse control disorder, unspecified (2) Anxiety disorder, unspecified (3) Dementia, vascular, with depression (4) Dementia, vascular, with delusions (5) Major neurocognitive disorder (6) Major neurocognitive disorder, due to vascular disease, with behavioral disturbance, mild (7) History of alcohol dependence TL SAMULE MD Jun 21, 2020 21:57
--- NOTE | 2020-06-22 04:42 | NUR ---
Nursing Note The patient was very disorganized, agitated and confused this shift. The patient was located in the quiet [place] when this nurse received the patient. The patient received PRN Zyprexa with his HS medications. The patient is currently sleeping in his room.
[2020-06-22 05:42] VITALS: BP 104/57
[2020-06-22] MEDS: MAGNESIUM OXIDE 400 MG TABLET PO SCH ×3 (08:16→19:53)
[2020-06-22] MEDS: FOLIC ACID 1 MG TABLET PO SCH (08:16)
[2020-06-22] MEDS: DIVALPROEX 125 MG CAP.SPRINK PO SCH ×2 (08:17→17:26)
[2020-06-22] MEDS: POTASSIUM BICARB 20 MEQ EFFERVESCENT TABLET. PO SCH ×2 (08:17→19:55)
[2020-06-22] MEDS: THIAMINE 100 MG TABLET. PO SCH (08:18)
[2020-06-22] MEDS: METOPROLOL TART IMMED RELEASE 50 MG TABLET PO SCH ×2 (08:18→19:55)
[2020-06-22] MEDS: QUEtiapine 25 MG TABLET. PO SCH ×3 (08:18→19:56)
[2020-06-22] MEDS: LOSARTAN 50 MG TABLET. PO SCH (08:19)
[2020-06-22] MEDS: [UNRECOGNIZED DRUG - OTHER] PO SCH (08:20)
[2020-06-22] MEDS: MULTIVITAMIN PO SCH (08:20)
[2020-06-22] MEDS: NYSTATIN 100,000 UNIT/GM TOPICAL CREAM 15GM TUBE. TP SCH ×2 (09:00→19:56)
[2020-06-22 09:57] LABS: BASO % 0 % (0-3); EOS % 1 % (0-3); HEMATOCRIT 27.2 % (39.0-53.0); HEMOGLOBIN 9.2 g/dL (13.0-17.5); LYMPH # 0.4 x10^3/uL (1.0-4.8); LYMPH % 12 % (24-48); MEAN CORPUSCULAR HEMOGLOBIN 33 pg (25-35); MEAN CORPUSCULAR HGB CONC 34 g/dL (31-37); MEAN CORPUSCULAR VOLUME 96 fL (79-100); MONO # 0.8 x10^3/uL (0.0-1.1); MONO % 22 % (0-9); NEUT # 2.2 x10^3uL (1.8-7.7); NEUT % 64 % (31-73); PLATELET COUNT 150 x10^3/uL (140-400); RED BLOOD COUNT 2.84 x10^6/uL (4.30-5.70); RED CELL DISTRIBUTION WIDTH 14.5 % (11.5-14.5); WHITE BLOOD COUNT 3.4 x10^3/uL (4.0-11.0)
[2020-06-22 10:55] LABS: ALBUMIN 2.7 g/dL (3.4-5.0); ALBUMIN/GLOBULIN RATIO 0.6 (1.0-1.7); CALCIUM 9.5 mg/dL (8.5-10.1); CREATININE 1.5 mg/dL (0.7-1.3); GFR 44.9; POTASSIUM 4.6 mmol/L (3.5-5.1); TOTAL BILIRUBIN 0.6 mg/dL (0.2-1.0); TOTAL PROTEIN 7.1 g/dL (6.4-8.2)
--- NOTE | 2020-06-22 11:00 | NUR ---
Patient in bed with eyes closed at the time of initial assessment. Refused to let this nurse listen to his heart and lung sounds. Potassium given in orange juice and other medications crushed and put in Ensure both of which he drank. Patient refused nystatin cream. Bedside table removed from room because to prevent him from using it as a walker. His walker is at his bedside. Patient is currently in bed with eyes closed. Will continue to monitor.
[2020-06-22 11:22] LABS: VAL ACID 44 mcg/mL (50-100)
--- NOTE | 2020-06-22 12:41 | NUR ---
SIMONE spoke with Bárbara at [facility] to discuss the possibility of having a referral for the program. SIMONE discussed with Bárbara pt behaviors being very staff specific and for him approach is everything. This is a man who initially lived at home less than 3 months ago. 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 Again, his behaviors are sporadic and mostly staff specific, which she will be able to note through his referral packet.
[2020-06-22 15:21] LABS: BILIRUBIN,URINE NEG (NEG); CLARITY,URINE CLOUDY; COLOR,URINE STRAW; GLUCOSE,URINE NEG (NEG)
[2020-06-22 15:22] LABS: NITRITE,URINE POS (NEG); UROBILINOGEN,URINE 0.2 mg/dL (0.2 mg/dL)
[2020-06-22 15:23] LABS: BACTERIA,URINE MANY /HPF (0-FEW); WBC,URINE >40 /HPF (0-4)
[2020-06-22 16:18] VITALS: BP 106/65
[2020-06-22] MEDS: MELATONIN 3 MG TABLET PO SCH (19:54)
--- NOTE | 2020-06-22 21:54 | PDOC ---
Exam Note: Taurus Note: This note is a late entry for 06/21/2020 covers elements not covered in my initial note. Subjective: The patient was evaluated on telehealth rounds in the evening of 06/21/2020 with Meaghan MOREL. The unit is shut down due to COVID-19 exposure on the unit with no admissions and discharges for now. Per Meaghan MOREL, he slept 7-3/4 hours previous night. He remains confused, resistive with medications, somewhat anxious, dismissive. Review of Systems: No CV, , pulmonary, eye, ENT system symptoms on review. Mental Status Exam: Oriented to himself. Insight and judgment, recent and remote memory, attention and concentration, fund of knowledge consistent with his diagnoses. Laboratory Data: Reviewed. 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 Anxiety disorder unspecified. Plan: No change from initial note. Assessment: Vital Signs/I&O: Vital Signs Date Time Temp Pulse Resp B/P (MAP) Pulse Ox O2 Delivery O2 Flow Rate FiO2 06/22/20 21:38 98.0 98 06/22/20 19:55 73 106/65 06/22/20 16:18 15 Room Air 06/19/20 16:09 94.0 I & O 06/21/20 06/21/20 06/22/20 15:00 23:00 07:00 Intake Total 180 ml 340 ml Balance 180 ml 340 ml Labs: Laboratory Tests Test 06/22/20 09:20 06/22/20 14:30 White Blood Count 3.4 x10^3/uL (4.0-11.0) L Red Blood Count 2.84 x10^6/uL (4.30-5.70) L Hemoglobin 9.2 g/dL (13.0-17.5) L Hematocrit 27.2 % (39.0-53.0) L Mean Corpuscular Volume 96 fL (79-100) Mean Corpuscular Hemoglobin 33 pg (25-35) Mean Corpuscular Hemoglobin Concent 34 g/dL (31-37) Red Cell Distribution Width 14.5 % (11.5-14.5) Platelet Count 150 x10^3/uL (140-400) Neutrophils (%) (Auto) 64 % (31-73) Lymphocytes (%) (Auto) 12 % (24-48) L Monocytes (%) (Auto) 22 % (0-9) H Eosinophils (%) (Auto) 1 % (0-3) Basophils (%) (Auto) 0 % (0-3) Neutrophils # (Auto) 2.2 x10^3uL (1.8-7.7) Lymphocytes # (Auto) 0.4 x10^3/uL (1.0-4.8) L Monocytes # (Auto) 0.8 x10^3/uL (0.0-1.1) Eosinophils # (Auto) 0.0 x10^3/uL (0.0-0.7) Basophils # (Auto) 0.0 x10^3/uL (0.0-0.2) Sodium Level 145 mmol/L (136-145) Potassium Level 4.6 mmol/L (3.5-5.1) Chloride Level 110 mmol/L (98-107) H Carbon Dioxide Level 28 mmol/L (21-32) Anion Gap 7 (6-14) Blood Urea Nitrogen 42 mg/dL (8-26) H Creatinine 1.5 mg/dL (0.7-1.3) H Estimated GFR (Cockcroft-Gault) 44.9 BUN/Creatinine Ratio 28 (6-20) H Glucose Level 91 mg/dL (70-99) Calcium Level 9.5 mg/dL (8.5-10.1) Total Bilirubin 0.6 mg/dL (0.2-1.0) Aspartate Amino Transferase (AST) 19 U/L (15-37) Alanine Aminotransferase (ALT) 14 U/L (16-63) L Alkaline Phosphatase 62 U/L (46-116) Total Protein 7.1 g/dL (6.4-8.2) Albumin 2.7 g/dL (3.4-5.0) L Albumin/Globulin Ratio 0.6 (1.0-1.7) L Valproic Acid Level 44 mcg/mL (50-100) L Valproic Acid Last Dose Date 06/21/20 Valproic Acid Last Dose Time 1700 Urine Collection Type Unknown Urine Color Straw Urine Clarity Cloudy Urine pH >8.5 Urine Specific [place] 1.015 Urine Protein >100 mg/dl (NEG-TRACE) Urine Glucose (UA) Neg mg/dL (NEG) Urine Ketones (Stick) Neg mg/dL (NEG) Urine Blood Mod (NEG) Urine Nitrite Pos (NEG) Urine Bilirubin Neg (NEG) Urine Urobilinogen Dipstick 0.2 mg/dL (0.2 mg/dL) Urine Leukocyte Esterase Small (NEG) Urine RBC 1-2 /HPF (0-2) Urine WBC >40 /HPF (0-4) Urine Bacteria Many /HPF (0-FEW) Current Medications: Meds: Current Medications Medications (Trade) Dose Ordered Sig/Lit Route PRN Reason Start Time Stop Time Status Last Admin Dose Admin Quetiapine Fumarate (SEROquel) 37.5 mg TID PO 06/22/20 14:00 06/22/20 19:56 I have reviewed the current psychotropics carefully including drug interactions. Risk benefit ratio favors no change other than as noted in my dictated progress note. Diagnosis: Problems: (1) Impulse control disorder, unspecified (2) Anxiety disorder, unspecified (3) Dementia, vascular, with depression (4) Dementia, vascular, with delusions (5) Major neurocognitive disorder (6) Major neurocognitive disorder, due to vascular disease, with behavioral disturbance, mild (7) History of alcohol dependence TL SAMUEL MD Jun 22, 2020 21:54
--- NOTE | 2020-06-22 22:00 | PDOC ---
Exam Note: Taurus Note: Please also refer to the separate dictated note~for this date of service dictated separately.~Patient seen individually. Discussed the patient with Nursing staff reviewed the chart.~Reviewed interim history and current functioning. Reviewed vital signs,~Labs/ Radiology~and current medications noted below. Continue current treatment with the changes noted in the dictated addendum note Assessment: Vital Signs/I&O: Vital Signs Date Time Temp Pulse Resp B/P (MAP) Pulse Ox O2 Delivery O2 Flow Rate FiO2 06/22/20 21:38 98.0 98 06/22/20 19:55 73 106/65 06/22/20 16:18 15 Room Air 06/19/20 16:09 94.0 I & O 06/21/20 06/21/20 06/22/20 15:00 23:00 07:00 Intake Total 180 ml 340 ml Balance 180 ml 340 ml Labs: Laboratory Tests Test 06/22/20 09:20 06/22/20 14:30 White Blood Count 3.4 x10^3/uL (4.0-11.0) L Red Blood Count 2.84 x10^6/uL (4.30-5.70) L Hemoglobin 9.2 g/dL (13.0-17.5) L Hematocrit 27.2 % (39.0-53.0) L Mean Corpuscular Volume 96 fL (79-100) Mean Corpuscular Hemoglobin 33 pg (25-35) Mean Corpuscular Hemoglobin Concent 34 g/dL (31-37) Red Cell Distribution Width 14.5 % (11.5-14.5) Platelet Count 150 x10^3/uL (140-400) Neutrophils (%) (Auto) 64 % (31-73) Lymphocytes (%) (Auto) 12 % (24-48) L Monocytes (%) (Auto) 22 % (0-9) H Eosinophils (%) (Auto) 1 % (0-3) Basophils (%) (Auto) 0 % (0-3) Neutrophils # (Auto) 2.2 x10^3uL (1.8-7.7) Lymphocytes # (Auto) 0.4 x10^3/uL (1.0-4.8) L Monocytes # (Auto) 0.8 x10^3/uL (0.0-1.1) Eosinophils # (Auto) 0.0 x10^3/uL (0.0-0.7) Basophils # (Auto) 0.0 x10^3/uL (0.0-0.2) Sodium Level 145 mmol/L (136-145) Potassium Level 4.6 mmol/L (3.5-5.1) Chloride Level 110 mmol/L (98-107) H Carbon Dioxide Level 28 mmol/L (21-32) Anion Gap 7 (6-14) Blood Urea Nitrogen 42 mg/dL (8-26) H Creatinine 1.5 mg/dL (0.7-1.3) H Estimated GFR (Cockcroft-Gault) 44.9 BUN/Creatinine Ratio 28 (6-20) H Glucose Level 91 mg/dL (70-99) Calcium Level 9.5 mg/dL (8.5-10.1) Total Bilirubin 0.6 mg/dL (0.2-1.0) Aspartate Amino Transferase (AST) 19 U/L (15-37) Alanine Aminotransferase (ALT) 14 U/L (16-63) L Alkaline Phosphatase 62 U/L (46-116) Total Protein 7.1 g/dL (6.4-8.2) Albumin 2.7 g/dL (3.4-5.0) L Albumin/Globulin Ratio 0.6 (1.0-1.7) L Valproic Acid Level 44 mcg/mL (50-100) L Valproic Acid Last Dose Date 06/21/20 Valproic Acid Last Dose Time 1700 Urine Collection Type Unknown Urine Color Straw Urine Clarity Cloudy Urine pH >8.5 Urine Specific [place] 1.015 Urine Protein >100 mg/dl (NEG-TRACE) Urine Glucose (UA) Neg mg/dL (NEG) Urine Ketones (Stick) Neg mg/dL (NEG) Urine Blood Mod (NEG) Urine Nitrite Pos (NEG) Urine Bilirubin Neg (NEG) Urine Urobilinogen Dipstick 0.2 mg/dL (0.2 mg/dL) Urine Leukocyte Esterase Small (NEG) Urine RBC 1-2 /HPF (0-2) Urine WBC >40 /HPF (0-4) Urine Bacteria Many /HPF (0-FEW) Current Medications: Meds: Current Medications Medications (Trade) Dose Ordered Sig/Lit Route PRN Reason Start Time Stop Time Status Last Admin Dose Admin Quetiapine Fumarate (SEROquel) 37.5 mg TID PO 06/22/20 14:00 06/22/20 19:56 I have reviewed the current psychotropics carefully including drug interactions. Risk benefit ratio favors no change other than as noted in my dictated progress note. Diagnosis: Problems: (1) Impulse control disorder, unspecified (2) Anxiety disorder, unspecified (3) Dementia, vascular, with depression (4) Dementia, vascular, with delusions (5) Major neurocognitive disorder (6) Major neurocognitive disorder, due to vascular disease, with behavioral disturbance, mild (7) History of alcohol dependence TL SAMUEL MD Jun 22, 2020 22:00
--- NOTE | 2020-06-22 22:35 | NUR ---
Patient is in his room on assumption of care, awake in his bed. Irritable, difficult to redirect. Compliant with assessments and medications crushed in orange juice. Patient denies any pain or discomfort. No agitation. Continues to believe that he is at a college, stating "Why is this set up this way? This is all wrong. 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
[2020-06-23 05:25] VITALS: BP 143/74
[2020-06-23] MEDS: METOPROLOL TART IMMED RELEASE 50 MG TABLET PO SCH ×2 (07:46→19:52)
[2020-06-23] MEDS: QUEtiapine 25 MG TABLET. PO SCH ×3 (07:46→19:29)
[2020-06-23] MEDS: POTASSIUM BICARB 20 MEQ EFFERVESCENT TABLET. PO SCH ×2 (07:46→19:29)
[2020-06-23] MEDS: DIVALPROEX 125 MG CAP.SPRINK PO SCH ×2 (07:47→16:36)
[2020-06-23] MEDS: THIAMINE 100 MG TABLET. PO SCH (07:47)
[2020-06-23] MEDS: FOLIC ACID 1 MG TABLET PO SCH (07:47)
[2020-06-23] MEDS: LOSARTAN 50 MG TABLET. PO SCH (07:47)
[2020-06-23] MEDS: MAGNESIUM OXIDE 400 MG TABLET PO SCH ×3 (07:47→19:27)
[2020-06-23] MEDS: MULTIVITAMIN PO SCH (07:48)
[2020-06-23] MEDS: [UNRECOGNIZED DRUG - OTHER] PO SCH (07:48)
[2020-06-23] MEDS: NYSTATIN 100,000 UNIT/GM TOPICAL CREAM 15GM TUBE. TP SCH ×2 (07:49→21:00)
[2020-06-23 15:39] VITALS: BP 122/21
--- NOTE | 2020-06-23 15:54 | NUR ---
Pt up in room adl. Calm until this afternoon. Has been sarcastic and condescending with staff. Threw water on housekeeping when she was attempting to mop hip room. Has been redirectable with encouragement. Meds taken dissolved in juice.
[2020-06-23] MEDS: MELATONIN 3 MG TABLET PO SCH (19:27)
[2020-06-23 21:50] VITALS: BP 123/72
--- NOTE | 2020-06-23 22:02 | PDOC ---
Exam Note: Taurus Note: Please also refer to the separate dictated note~for this date of service dictated separately.~Patient seen individually. Discussed the patient with Nursing staff reviewed the chart.~Reviewed interim history and current functioning. Reviewed vital signs,~Labs/ Radiology~and current medications noted below. Continue current treatment with the changes noted in the dictated addendum note Assessment: Vital Signs/I&O: Vital Signs Date Time Temp Pulse Resp B/P (MAP) Pulse Ox O2 Delivery O2 Flow Rate FiO2 06/23/20 21:50 99.0 86 123/72 (89) 95 06/23/20 15:39 21 Room Air 06/19/20 16:09 94.0 I & O 0 06/22/20 06/22/20 06/23/20 15:00 23:00 07:00 Intake Total 360 ml 360 ml Balance 360 ml 360 ml Current Medications: I have reviewed the current psychotropics carefully including drug interactions. Risk benefit ratio favors no change other than as noted in my dictated progress note. Diagnosis: Problems: (1) Impulse control disorder, unspecified (2) Anxiety disorder, unspecified (3) Dementia, vascular, with depression (4) Dementia, vascular, with delusions (5) Major neurocognitive disorder (6) Major neurocognitive disorder, due to vascular disease, with behavioral disturbance, mild (7) History of alcohol dependence TL SAMUEL MD Jun 23, 2020 22:02
--- NOTE | 2020-06-23 22:24 | NUR ---
Nursing Note The patient was located in his room for his assessment and medication pass. The patient took his medication crushed in ice cream. The patient was very disorganized and irritable. The patient was very resistive during interactions with staff. The patient is currently sleeping in his room.
--- NOTE | 2020-06-23 23:24 | PDOC ---
Exam Note: Taurus Note: This note is a late entry for 06/22/2020 covers elements not covered in my initial note. Subjective: The patient was evaluated on telehealth rounds in the morning of 06/22/2020 with treatment team meeting with Kerry ([facility]), Meme MOREL and Holli nursing aid. The unit is still on a lockdown due to COVID-19 exposure with no admissions and discharges. Per Meme MOREL in the evening, he slept 6 hours previous night. Appetite is 50%. Previous day he was agitated, yelling at times, little better during the day on 06/22. He was in the West hallway in the evening as I met with him because of his agitation outside this. The West hallway is less sensory stimuli. Review of Systems: No CV, , pulmonary, eye, ENT system symptoms on review. Mental Status Exam: Oriented to himself. Insight and judgment, recent and remote memory, attention and concentration, fund of knowledge consistent with his diagnoses. Laboratory Data: Reviewed. 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 Anxiety disorder unspecified. Plan: No change from initial note but we will go ahead and increase the Seroquel from 25 mg t.i.d. to 37.5 mg t.i.d. Check UA and make sure UTI is not worsening his agitation. Assessment: Vital Signs/I&O: Vital Signs Date Time Temp Pulse Resp B/P (MAP) Pulse Ox O2 Delivery O2 Flow Rate FiO2 06/23/20 21:50 99.0 86 123/72 (89) 95 06/23/20 15:39 21 Room Air 06/19/20 16:09 94.0 I & O 06/22/20 06/22/20 06/23/20 15:00 23:00 07:00 Intake Total 360 ml 360 ml Balance 360 ml 360 ml Current Medications: I have reviewed the current psychotropics carefully including drug interactions. Risk benefit ratio favors no change other than as noted in my dictated progress note. Diagnosis: Problems: (1) Impulse control disorder, unspecified (2) Anxiety disorder, unspecified (3) Dementia, vascular, with depression (4) Dementia, vascular, with delusions (5) Major neurocognitive disorder (6) Major neurocognitive disorder, due to vascular disease, with behavioral disturbance, mild (7) History of alcohol dependence TL SAMUEL MD Jun 23, 2020 23:24
[2020-06-24 05:50] VITALS: BP 126/74
[2020-06-24] MEDS: QUEtiapine 25 MG TABLET. PO SCH ×3 (07:55→19:39)
[2020-06-24] MEDS: POTASSIUM BICARB 20 MEQ EFFERVESCENT TABLET. PO SCH ×2 (07:55→19:40)
[2020-06-24] MEDS: METOPROLOL TART IMMED RELEASE 50 MG TABLET PO SCH ×2 (07:56→20:44)
[2020-06-24] MEDS: FOLIC ACID 1 MG TABLET PO SCH (07:56)
[2020-06-24] MEDS: LOSARTAN 50 MG TABLET. PO SCH (07:56)
[2020-06-24] MEDS: MAGNESIUM OXIDE 400 MG TABLET PO SCH ×3 (07:56→19:40)
[2020-06-24] MEDS: MULTIVITAMIN PO SCH ×2 (07:56→08:10)
[2020-06-24] MEDS: THIAMINE 100 MG TABLET. PO SCH (07:56)
[2020-06-24] MEDS: [UNRECOGNIZED DRUG - OTHER] PO SCH ×2 (07:56→08:10)
[2020-06-24] MEDS: NYSTATIN 100,000 UNIT/GM TOPICAL CREAM 15GM TUBE. TP SCH ×2 (07:57→21:00)
[2020-06-24] MEDS: VALPROATE ACID 250 MG/5 ML ORAL SOLUTION PO SCH ×2 (07:58→17:00)
[2020-06-24 16:05] VITALS: BP 105/66
--- NOTE | 2020-06-24 16:55 | NUR ---
Pt up in room. Up for meals. Has been pleasantly confused thus far. Meds taken dissolved in juice or crushed in ice cream. Has been compliant with cares thus far. Pt to start ABT for UTI.
[2020-06-24] MEDS: MELATONIN 3 MG TABLET PO SCH (19:38)
[2020-06-24] MEDS: LACTOBACILLUS RHAMNOSUS GG 1 CAPSULE. PO SCH (19:38)
[2020-06-24] MEDS: CEFDINIR 300 MG CAPSULE PO SCH (19:42)
--- NOTE | 2020-06-24 21:52 | PDOC ---
Exam Note: Taurus Note: Please also refer to the separate dictated note~for this date of service dictated separately.~Patient seen individually. Discussed the patient with Nursing staff reviewed the chart.~Reviewed interim history and current functioning. Reviewed vital signs,~Labs/ Radiology~and current medications noted below. Continue current treatment with the changes noted in the dictated addendum note Assessment: Vital Signs/I&O: Vital Signs Date Time Temp Pulse Resp B/P (MAP) Pulse Ox O2 Delivery O2 Flow Rate FiO2 06/24/20 20:44 83 137/63 06/24/20 16:05 98.6 16 96 Room Air 06/19/20 16:09 94.0 I & O 06/23/20 06/23/20 06/24/20 15:00 23:00 07:00 Intake Total 456 ml 697 ml Balance 456 ml 697 ml Current Medications: Meds: Current Medications Medications (Trade) Dose Ordered Sig/Lit Route PRN Reason Start Time Stop Time Status Last Admin Dose Admin Valproic Acid (Depakene) 500 mg BIDWMEALS PO 06/24/20 08:00 06/24/20 17:00 Cefdinir (Omnicef) 300 mg BID PO 06/24/20 21:00 06/24/20 19:42 Lactobacillus Rhamnosus (Culturelle) 1 cap BID PO 06/24/20 21:00 06/24/20 19:38 I have reviewed the current psychotropics carefully including drug interactions. Risk benefit ratio favors no change other than as noted in my dictated progress note. Diagnosis: Problems: (1) Impulse control disorder, unspecified (2) Anxiety disorder, unspecified (3) Dementia, vascular, with depression (4) Dementia, vascular, with delusions (5) Major neurocognitive disorder (6) Major neurocognitive disorder, due to vascular disease, with behavioral disturbance, mild (7) History of alcohol dependence TL SAMUEL MD Jun 24, 2020 21:52
--- NOTE | 2020-06-24 23:04 | NUR ---
Nursing Note The patient was located in his room for his assessment and medication pass. The patient took his medication crushed in ice cream. The patient has been irritable during interactions with staff this shift. The patient has been unable to track during conversation this shift. The patient is currently laying in bed and is restless at times.
[2020-06-25 06:28] VITALS: BP 130/73
--- NOTE | 2020-06-25 06:39 | PDOC ---
Exam Note: Taursu Note: This note is a late entry for 06/23/2020 covers elements not covered in my initial note. Subjective: The patient was evaluated on telehealth rounds in the evening of 06/23/2020 with [facility] nursing aid. The unit is shut down due to COVID-19 exposure on the unit with no admissions and discharges per Department of Health directives. Per Teresa RN in the evening, he slept 6 hours previous night. He is somewhat irritable at times, threw his water at the [employer] goods inspector. UA is positive for nitrites. He has been started on antibiotics. Valproic acid level is 44 possibly, partly consequent to compliance. Review of Systems: Ambulation impaired in wheelchair. No CV, , pulmonary, eye, ENT system symptoms on review. Mental Status Exam: Oriented to himself. He is somewhat anxious, restless, dismissive, paranoid, and suspicious at times and some of this could be attributed to the UTI. Insight and judgment, recent and remote memory, attentio n and concentration, fund of knowledge consistent with his diagnoses. Laboratory Data: Reviewed. 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 Anxiety disorder unspecified. Plan: No change from initial note. We will go ahead and increase Depakote Sprinkle from 250 mg a.m. and 500 mg at 5.p.m. to 500 mg b.i.d. Check CBC, CMP, valproic acid level, ammonia level in 3 days. Rest unchanged for now. Treat the UTI. Assessment: Vital Signs/I&O: Vital Signs Date Time Temp Pulse Resp B/P (MAP) Pulse Ox O2 Delivery O2 Flow Rate FiO2 06/25/20 06:28 98.7 71 16 130/73 (92) 95 Room Air 06/19/20 16:09 94.0 I & O 06/24/20 06/24/20 06/25/20 14:59 22:59 06:59 Intake Total 480 ml 360 ml 60 ml Balance 480 ml 360 ml 60 ml Current Medications: Meds: Current Medications Medications (Trade) Dose Ordered Sig/Lit Route PRN Reason Start Time Stop Time Status Last Admin Dose Admin Valproic Acid (Depakene) 500 mg BIDWMEALS PO 06/24/20 08:00 06/24/20 17:00 Cefdinir (Omnicef) 300 mg BID PO 06/24/20 21:00 06/24/20 19:42 Lactobacillus Rhamnosus (Culturelle) 1 cap BID PO 06/24/20 21:00 06/24/20 19:38 I have reviewed the current psychotropics carefully including drug interactions. Risk benefit ratio favors no change other than as noted in my dictated progress note. Diagnosis: Problems: (1) Impulse control disorder, unspecified (2) Anxiety disorder, unspecified (3) Dementia, vascular, with depression (4) Dementia, vascular, with delusions (5) Major neurocognitive disorder (6) Major neurocognitive disorder, due to vascular disease, with behavioral disturbance, mild (7) History of alcohol dependence TL SAMUEL MD Jun 25, 2020 06:39
--- NOTE | 2020-06-25 06:50 | PDOC ---
Exam Note: Taurus Note: This note is a late entry for 06/24/2020 covers elements not covered in my initial note. Subjective: The patient was evaluated on telehealth rounds in the evening of 06/24/2020 with Teresa MOREL. The unit is shut down due to COVID-19 exposure on the unit with no admissions and discharges per Department of Health directives. Per Teresa RN in the evening, he slept 7-3/4 hours previous night. He did well till about supper time, then was resistive previous evening, anxious, was started on Cefdinir IR for protease positive UTI. Review of Systems: No CV, , pulmonary, eye, ENT system symptoms on review. Mental Status Exam: Oriented to himself. He was less dismissive, anxious, restless as I met with him. Insight and judgment, recent and remote memory, attention and concentration, fund of knowledge consistent with his diagnoses. Laboratory Data: Reviewed. 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 Anxiety disorder unspecified. Plan: No change from initial note. Assessment: Vital Signs/I&O: Vital Signs Date Time Temp Pulse Resp B/P (MAP) Pulse Ox O2 Delivery O2 Flow Rate FiO2 06/25/20 06:28 98.7 71 16 130/73 (92) 95 Room Air 06/19/20 16:09 94.0 I & O 06/24/20 06/24/20 06/25/20 15:00 23:00 07:00 Intake Total 480 ml 360 ml 60 ml Balance 480 ml 360 ml 60 ml Current Medications: Meds: Current Medications Medications (Trade) Dose Ordered Sig/Lit Route PRN Reason Start Time Stop Time Status Last Admin Dose Admin Valproic Acid (Depakene) 500 mg BIDWMEALS PO 06/24/20 08:00 06/24/20 17:00 Cefdinir (Omnicef) 300 mg BID PO 06/24/20 21:00 06/24/20 19:42 Lactobacillus Rhamnosus (Culturelle) 1 cap BID PO 06/24/20 21:00 06/24/20 19:38 I have reviewed the current psychotropics carefully including drug interactions. Risk benefit ratio favors no change other than as noted in my dictated progress note. Diagnosis: Problems: (1) Impulse control disorder, unspecified (2) Anxiety disorder, unspecified (3) Dementia, vascular, with depression (4) Dementia, vascular, with delusions (5) Major neurocognitive disorder (6) Major neurocognitive disorder, due to vascular disease, with behavioral disturbance, mild (7) History of alcohol dependence TL SAMUEL MD Jun 25, 2020 06:50
[2020-06-25] MEDS: METOPROLOL TART IMMED RELEASE 50 MG TABLET PO SCH ×2 (08:13→19:56)
[2020-06-25] MEDS: LOSARTAN 50 MG TABLET. PO SCH (08:13)
[2020-06-25] MEDS: MAGNESIUM OXIDE 400 MG TABLET PO SCH ×3 (08:13→19:55)
[2020-06-25] MEDS: POTASSIUM BICARB 20 MEQ EFFERVESCENT TABLET. PO SCH ×2 (08:13→19:55)
[2020-06-25] MEDS: LACTOBACILLUS RHAMNOSUS GG 1 CAPSULE. PO SCH ×2 (08:14→19:55)
[2020-06-25] MEDS: CEFDINIR 300 MG CAPSULE PO SCH ×2 (08:14→19:55)
[2020-06-25] MEDS: THIAMINE 100 MG TABLET. PO SCH (08:14)
[2020-06-25] MEDS: FOLIC ACID 1 MG TABLET PO SCH (08:14)
[2020-06-25] MEDS: QUEtiapine 25 MG TABLET. PO SCH ×3 (08:14→19:53)
[2020-06-25] MEDS: VALPROATE ACID 250 MG/5 ML ORAL SOLUTION PO SCH ×2 (08:14→16:25)
[2020-06-25] MEDS: MULTIVITAMIN PO SCH (08:16)
[2020-06-25] MEDS: NYSTATIN 100,000 UNIT/GM TOPICAL CREAM 15GM TUBE. TP SCH ×2 (08:16→19:56)
[2020-06-25] MEDS: [UNRECOGNIZED DRUG - OTHER] PO SCH (08:16)
[2020-06-25] MEDS ORDERED: ACET325T21 PO (11:36)
[2020-06-25] MEDS ORDERED: CEFD300C PO (11:37)
[2020-06-25] MEDS ORDERED: LACT1CAP21 PO (11:38)
[2020-06-25] MEDS ORDERED: MAGN24003 PO (11:39)
[2020-06-25] MEDS ORDERED: MAG355OR12 PO (11:39)
[2020-06-25] MEDS ORDERED: PEDI1TAB PO (11:40)
[2020-06-25] MEDS ORDERED: MAGN400T5 PO (11:40)
[2020-06-25] MEDS ORDERED: METH57CR17 TP (11:41)
[2020-06-25] MEDS ORDERED: NYST15CR TP (11:42)
[2020-06-25] MEDS ORDERED: NYST15PO9 TP (11:43)
[2020-06-25] MEDS ORDERED: OLAN5TAB99 PO (11:44)
[2020-06-25] MEDS ORDERED: POTA20TA40 PO (11:45)
[2020-06-25] MEDS ORDERED: VALP250S18 PO (11:46)
[2020-06-25 16:04] VITALS: BP 107/62
--- NOTE | 2020-06-25 16:34 | NUR ---
Pt up in chair for meals in room. Has been pleasant and c/o cares. up for shower. Tolerated well. Has taken meds dissolved in boost.
[2020-06-25 19:26] VITALS: BP 131/69
[2020-06-25] MEDS: MELATONIN 3 MG TABLET PO SCH (19:55)
--- NOTE | 2020-06-25 21:56 | PDOC ---
Exam Note: Taurus Note: Please also refer to the separate dictated note~for this date of service dictated separately.~Patient seen individually. Discussed the patient with Nursing staff reviewed the chart.~Reviewed interim history and current functioning. Reviewed vital signs,~Labs/ Radiology~and current medications noted below. Continue current treatment with the changes noted in the dictated addendum note Assessment: Vital Signs/I&O: Vital Signs Date Time Temp Pulse Resp B/P (MAP) Pulse Ox O2 Delivery O2 Flow Rate FiO2 06/25/20 20:23 98.0 98 06/25/20 19:56 80 131/69 06/25/20 16:04 18 06/25/20 06:28 Room Air 06/19/20 16:09 94.0 I & O 06/24/20 06/24/20 06/25/20 15:00 23:00 07:00 Intake Total 480 ml 360 ml 60 ml Balance 480 ml 360 ml 60 ml Current Medications: I have reviewed the current psychotropics carefully including drug interactions. Risk benefit ratio favors no change other than as noted in my dictated progress note. Diagnosis: Problems: (1) Impulse control disorder, unspecified (2) Anxiety disorder, unspecified (3) Dementia, vascular, with depression (4) Dementia, vascular, with delusions (5) Major neurocognitive disorder (6) Major neurocognitive disorder, due to vascular disease, with behavioral disturbance, mild (7) History of alcohol dependence TL SAMUEL MD Jun 25, 2020 21:56
--- NOTE | 2020-06-25 22:27 | NUR ---
Pt laying in his bed this evening. Pt immediately pulled the covers over his head when approached. Pt disorganized and delusional. Compliant with medications hidden in orange juice.
[2020-06-26 05:48] VITALS: BP 133/66
[2020-06-26] MEDS: POTASSIUM BICARB 20 MEQ EFFERVESCENT TABLET. PO SCH ×2 (07:25→19:10)
[2020-06-26] MEDS: QUEtiapine 25 MG TABLET. PO SCH ×3 (07:25→19:11)
[2020-06-26] MEDS: FOLIC ACID 1 MG TABLET PO SCH (07:26)
[2020-06-26] MEDS: MAGNESIUM OXIDE 400 MG TABLET PO SCH ×3 (07:26→19:10)
[2020-06-26] MEDS: CEFDINIR 300 MG CAPSULE PO SCH ×2 (07:26→19:10)
[2020-06-26] MEDS: LACTOBACILLUS RHAMNOSUS GG 1 CAPSULE. PO SCH ×2 (07:26→19:10)
[2020-06-26] MEDS: THIAMINE 100 MG TABLET. PO SCH (07:26)
[2020-06-26] MEDS: LOSARTAN 50 MG TABLET. PO SCH (07:27)
[2020-06-26] MEDS: METOPROLOL TART IMMED RELEASE 50 MG TABLET PO SCH ×2 (07:29→19:10)
[2020-06-26] MEDS: VALPROATE ACID 250 MG/5 ML ORAL SOLUTION PO SCH ×2 (07:30→16:36)
[2020-06-26] MEDS: NYSTATIN TOPICAL POWDER 15GM BOTTLE. TP PRN ×2 (07:33→07:34)
[2020-06-26] MEDS: [UNRECOGNIZED DRUG - OTHER] PO SCH (07:33)
[2020-06-26] MEDS: MULTIVITAMIN PO SCH (07:33)
[2020-06-26] MEDS: NYSTATIN 100,000 UNIT/GM TOPICAL CREAM 15GM TUBE. TP SCH ×2 (08:41→19:12)
--- NOTE | 2020-06-26 10:50 | NUR ---
Patient in quiet hallway sitting on the floor at shift change. PRN medication given before shift change. Patient agitated but calmed down after changing his brief and talking with him. Confused, disorganized and frustrated. Medication given crushed in juice and patient took without difficulty. Patient currently in room laying in bed with eyes closed. Will continue to monitor.
[2020-06-26 18:39] VITALS: BP 117/71
[2020-06-26] MEDS: MELATONIN 3 MG TABLET PO SCH (19:11)
--- NOTE | 2020-06-26 21:41 | NUR ---
Pt agitated at shift change. Brought to [facility] where he was yelling, mimicking staff and ramming walker into doors and soriano. PRN Zyprexa administered sublingually. Pt's walker removed and pt placed on mattress in quiet room for safety. Pt later calmed down and was compliant with HS medications crushed in orange juice. Pt currently awake and yelling out intermittently.
--- NOTE | 2020-06-26 22:17 | PDOC ---
Exam Note: Taurus Note: Please also refer to the separate dictated note~for this date of service dictated separately.~Patient seen individually. Discussed the patient with Nursing staff reviewed the chart.~Reviewed interim history and current functioning. Reviewed vital signs,~Labs/ Radiology~and current medications noted below. Continue current treatment with the changes noted in the dictated addendum note Assessment: Vital Signs/I&O: Vital Signs Date Time Temp Pulse Resp B/P (MAP) Pulse Ox O2 Delivery O2 Flow Rate FiO2 06/26/20 21:34 97.4 100 06/26/20 19:10 69 117/71 06/26/20 18:39 18 06/25/20 06:28 Room Air I & O 06/25/20 06/25/20 06/26/20 15:00 23:00 07:00 Intake Total 200 ml 480 ml Balance 200 ml 480 ml Current Medications: I have reviewed the current psychotropics carefully including drug interactions. Risk benefit ratio favors no change other than as noted in my dictated progress note. Diagnosis: Problems: (1) Impulse control disorder, unspecified (2) Anxiety disorder, unspecified (3) Dementia, vascular, with depression (4) Dementia, vascular, with delusions (5) Major neurocognitive disorder (6) Major neurocognitive disorder, due to vascular disease, with behavioral disturbance, mild (7) History of alcohol dependence TL SAMUEL MD Jun 26, 2020 22:17
[2020-06-27 05:48] VITALS: BP 154/88
[2020-06-27 06:31] LABS: BASO % 1 % (0-3); EOS # 0.1 x10^3/uL (0.0-0.7); EOS % 4 % (0-3); HEMATOCRIT 28.9 % (39.0-53.0); HEMOGLOBIN 9.7 g/dL (13.0-17.5); LYMPH # 0.5 x10^3/uL (1.0-4.8); LYMPH % 15 % (24-48); MEAN CORPUSCULAR HEMOGLOBIN 32 pg (25-35); MEAN CORPUSCULAR HGB CONC 34 g/dL (31-37); MEAN CORPUSCULAR VOLUME 96 fL (79-100); MONO # 0.4 x10^3/uL (0.0-1.1); MONO % 14 % (0-9); NEUT # 2.1 x10^3uL (1.8-7.7); NEUT % 67 % (31-73); PLATELET COUNT 205 x10^3/uL (140-400); RED CELL DISTRIBUTION WIDTH 14.5 % (11.5-14.5); WHITE BLOOD COUNT 3.1 x10^3/uL (4.0-11.0)
[2020-06-27 06:46] LABS: VAL ACID 45 mcg/mL (50-100)
[2020-06-27 06:47] LABS: ALBUMIN 2.6 g/dL (3.4-5.0); ALBUMIN/GLOBULIN RATIO 0.6 (1.0-1.7); CALCIUM 9.4 mg/dL (8.5-10.1); CREATININE 1.1 mg/dL (0.7-1.3); GFR 64.2; POTASSIUM 4.3 mmol/L (3.5-5.1); TOTAL BILIRUBIN 0.5 mg/dL (0.2-1.0); TOTAL PROTEIN 7.1 g/dL (6.4-8.2)
[2020-06-27 08:04] LABS: % ATYL 4 % (0-0); % BANDS 12 % (0-9); % EOS 2 % (0-5); % LYMPHS 14 % (24-48); % MONOS 6 % (0-10); % MYELOS 2 % (0-0); % SEGS 60 % (35-66)
[2020-06-27] MEDS: POTASSIUM BICARB 20 MEQ EFFERVESCENT TABLET. PO SCH ×2 (08:09→20:27)
[2020-06-27] MEDS: VALPROATE ACID 250 MG/5 ML ORAL SOLUTION PO SCH ×2 (08:09→16:41)
[2020-06-27] MEDS: LACTOBACILLUS RHAMNOSUS GG 1 CAPSULE. PO SCH ×2 (08:09→20:28)
[2020-06-27] MEDS: CEFDINIR 300 MG CAPSULE PO SCH ×2 (08:09→20:28)
[2020-06-27] MEDS: METOPROLOL TART IMMED RELEASE 50 MG TABLET PO SCH ×2 (08:10→20:27)
[2020-06-27] MEDS: LOSARTAN 50 MG TABLET. PO SCH (08:10)
[2020-06-27] MEDS: QUEtiapine 25 MG TABLET. PO SCH ×3 (08:10→20:28)
[2020-06-27] MEDS: THIAMINE 100 MG TABLET. PO SCH (08:10)
[2020-06-27] MEDS: FOLIC ACID 1 MG TABLET PO SCH (08:11)
[2020-06-27] MEDS: MAGNESIUM OXIDE 400 MG TABLET PO SCH ×3 (08:11→20:28)
--- NOTE | 2020-06-27 08:31 | NUR ---
Patient in [facility] yelling out. Patient agitated and is yelling for "Marlen". Staff assisted patient into chair for breakfast. Patient still agitated, patient given PRN zyprexa for agitation/psychosis per order. Will continue to monitor. Addendum: 06/27/20 at 1538 by CHEYENNE ZAMORA RN PRN zyprexa was effective. Patient was able to sit and finish his breakfast without yelling and no agitated behaviors were observed.
[2020-06-27] MEDS: NYSTATIN 100,000 UNIT/GM TOPICAL CREAM 15GM TUBE. TP SCH ×2 (08:34→20:29)
[2020-06-27] MEDS: [UNRECOGNIZED DRUG - OTHER] PO SCH ×2 (08:36→08:47)
[2020-06-27] MEDS: MULTIVITAMIN PO SCH ×2 (08:36→08:47)
[2020-06-27 10:54] LABS: BURR CELLS PRESENT
[2020-06-27 10:55] LABS: PLT ESTIMATE ADEQUATE (ADEQUATE)
--- NOTE | 2020-06-27 12:30 | NUR ---
Patient swabbed for COVID send out test. Patient combative, staff x5 assist. Sample obtained.
--- NOTE | 2020-06-27 13:50 | NUR ---
Patient has been in [facility] all morning. This nurse observed patient using the bedside table as an ambulation aid, patients walker is not in hallway r/t him ramming the doors with it previously. Table was removed and patient was assisted to hallway. Patient is disorganized and calls out for "Sara". He talks as if he is giving a speech and at times he pauses as if waiting for a response. Patient is oriented to self. He is not able to state his date and becomes easily agitated with orientation questions. Patient resistive to drinking his depakene in grape juice and also initially refused the boost that his other meds had been hidden in. He eventually drank both.
--- NOTE | 2020-06-27 15:34 | NUR ---
Patient in hallway rubbing his lower left back. He stated it was hurting but was unable to rate his pain. PRN tylenol administered per order. Will continue to monitor.
[2020-06-27 15:38] VITALS: BP 127/65
[2020-06-27] MEDS: MELATONIN 3 MG TABLET PO SCH (20:28)
--- NOTE | 2020-06-27 21:57 | PDOC ---
Exam Note: Taurus Note: Please also refer to the separate dictated note~for this date of service dictated separately.~Patient seen individually. Discussed the patient with Nursing staff reviewed the chart.~Reviewed interim history and current functioning. Reviewed vital signs,~Labs/ Radiology~and current medications noted below. Continue current treatment with the changes noted in the dictated addendum note Assessment: Vital Signs/I&O: Vital Signs Date Time Temp Pulse Resp B/P (MAP) Pulse Ox O2 Delivery O2 Flow Rate FiO2 06/27/20 20:27 65 127/65 06/27/20 19:57 98.3 92 06/27/20 15:38 17 Room Air I & O 06/26/20 06/26/20 06/27/20 15:00 23:00 07:00 Intake Total 555 ml 360 ml Balance 555 ml 360 ml Labs: Laboratory Tests Test 06/27/20 06:20 White Blood Count 3.1 x10^3/uL (4.0-11.0) L Red Blood Count 3.00 x10^6/uL (4.30-5.70) L Hemoglobin 9.7 g/dL (13.0-17.5) L Hematocrit 28.9 % (39.0-53.0) L Mean Corpuscular Volume 96 fL (79-100) Mean Corpuscular Hemoglobin 32 pg (25-35) Mean Corpuscular Hemoglobin Concent 34 g/dL (31-37) Red Cell Distribution Width 14.5 % (11.5-14.5) Platelet Count 205 x10^3/uL (140-400) Neutrophils (%) (Auto) 67 % (31-73) Lymphocytes (%) (Auto) 15 % (24-48) L Monocytes (%) (Auto) 14 % (0-9) H Eosinophils (%) (Auto) 4 % (0-3) H Basophils (%) (Auto) 1 % (0-3) Neutrophils # (Auto) 2.1 x10^3uL (1.8-7.7) Lymphocytes # (Auto) 0.5 x10^3/uL (1.0-4.8) L Monocytes # (Auto) 0.4 x10^3/uL (0.0-1.1) Eosinophils # (Auto) 0.1 x10^3/uL (0.0-0.7) Basophils # (Auto) 0.0 x10^3/uL (0.0-0.2) Segmented Neutrophils % 60 % (35-66) Band Neutrophils % 12 % (0-9) H Lymphocytes % 14 % (24-48) L Atypical Lymphocytes % (Manual) 4 % (0-0) H Monocytes % 6 % (0-10) Eosinophils % 2 % (0-5) Myelocytes % 2 % (0-0) H Platelet Estimate Adequate (ADEQUATE) Harvey Cells Present Sodium Level 144 mmol/L (136-145) Potassium Level 4.3 mmol/L (3.5-5.1) Chloride Level 110 mmol/L (98-107) H Carbon Dioxide Level 27 mmol/L (21-32) Anion Gap 7 (6-14) Blood Urea Nitrogen 40 mg/dL (8-26) H Creatinine 1.1 mg/dL (0.7-1.3) Estimated GFR (Cockcroft-Gault) 64.2 BUN/Creatinine Ratio 36 (6-20) H Glucose Level 95 mg/dL (70-99) Calcium Level 9.4 mg/dL (8.5-10.1) Total Bilirubin 0.5 mg/dL (0.2-1.0) Aspartate Amino Transferase (AST) 17 U/L (15-37) Alanine Aminotransferase (ALT) 12 U/L (16-63) L Alkaline Phosphatase 58 U/L (46-116) Ammonia < 10 mcmol/L (11-34) L Total Protein 7.1 g/dL (6.4-8.2) Albumin 2.6 g/dL (3.4-5.0) L Albumin/Globulin Ratio 0.6 (1.0-1.7) L Valproic Acid Level 45 mcg/mL (50-100) L Valproic Acid Last Dose Date 06/26/2020 Valproic Acid Last Dose Time 1700 Current Medications: I have reviewed the current psychotropics carefully including drug interactions. Risk benefit ratio favors no change other than as noted in my dictated progress note. 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
--- NOTE | 2020-06-27 22:45 | NUR ---
Pt has been labile all evening. Pt calm and cooperative one minute and then yelling and attempting to hit the next minute. Compliant with crushed medications in orange juice. PRN Zyprexa administered with HS medications. Pt restless in bed and combative with redirection. Pt taken to quiet room to lay on mattress for safety. Pt currently delusional, yelling out intermittently and crawling on the floor. Will continue to monitor.
--- NOTE | 2020-06-27 23:00 | NUR ---
Pt continued yelling out. Pt restless and crawling on the floor. Pt combative when attempting to place him back on mattress in quiet room. PRN Zyprexa administered sublingually.
[2020-06-28 05:48] VITALS: BP 158/74
[2020-06-28] MEDS: METOPROLOL TART IMMED RELEASE 50 MG TABLET PO SCH ×2 (08:28→19:56)
[2020-06-28] MEDS: THIAMINE 100 MG TABLET. PO SCH (08:28)
[2020-06-28] MEDS: CEFDINIR 300 MG CAPSULE PO SCH ×2 (08:28→19:56)
[2020-06-28] MEDS: FOLIC ACID 1 MG TABLET PO SCH (08:29)
[2020-06-28] MEDS: LOSARTAN 50 MG TABLET. PO SCH (08:29)
[2020-06-28] MEDS: MAGNESIUM OXIDE 400 MG TABLET PO SCH ×3 (08:30→19:56)
[2020-06-28] MEDS: VALPROATE ACID 250 MG/5 ML ORAL SOLUTION PO SCH ×2 (08:31→17:07)
[2020-06-28] MEDS: LACTOBACILLUS RHAMNOSUS GG 1 CAPSULE. PO SCH ×2 (08:31→19:56)
[2020-06-28] MEDS: [UNRECOGNIZED DRUG - OTHER] PO SCH (08:31)
[2020-06-28] MEDS: MULTIVITAMIN PO SCH (08:31)
[2020-06-28] MEDS: QUEtiapine 25 MG TABLET. PO SCH ×3 (08:31→19:57)
[2020-06-28] MEDS: NYSTATIN 100,000 UNIT/GM TOPICAL CREAM 15GM TUBE. TP SCH ×2 (08:32→19:58)
[2020-06-28] MEDS: POTASSIUM BICARB 20 MEQ EFFERVESCENT TABLET. PO SCH ×2 (08:32→19:56)
--- NOTE | 2020-06-28 11:42 | PDOC ---
Exam Note: Taurus Note: This note is a late entry for 06/25/2020 covers elements not covered in my initial note. Subjective: The patient was evaluated on telehealth rounds in the evening of 06/25/2020 due to COVID-19 restrictions on the unit with no admissions and discharges. Per Teresa RN in the evening, he slept 4 hours previous night. He gets occasionally agitated, resistive with cares. At 5 p.m. he was yelling, irritable at dinner time and then did better. He does have UTI which could account for some of this and we will await resolution post treatment. Review of Systems: No CV, , pulmonary, eye, ENT system symptoms on review. Mental Status Exam: Oriented to himself. He was agitated, resistive with cares. Insight and judgment, recent and remote memory, attention and concentration, fund of knowledge consistent with his diagnoses. Laboratory Data: Reviewed. 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 Anxiety disorder unspecified. Plan: No change from initial note. Assessment: Vital Signs/I&O: Vital Signs Date Time Temp Pulse Resp B/P (MAP) Pulse Ox O2 Delivery O2 Flow Rate FiO2 06/28/20 08:29 89 158/74 06/28/20 05:48 97.8 18 97 06/27/20 15:38 Room Air I & O 06/27/20 06/27/20 06/28/20 15:00 23:00 07:00 Intake Total 840 ml 240 ml Balance 840 ml 240 ml Current Medications: I have reviewed the current psychotropics carefully including drug interactions. Risk benefit ratio favors no change other than as noted in my dictated progress note. Diagnosis: Problems: (1) Impulse control disorder, unspecified (2) Anxiety disorder, unspecified (3) Dementia, vascular, with depression (4) Dementia, vascular, with delusions (5) Major neurocognitive disorder (6) Major neurocognitive disorder, due to vascular disease, with behavioral disturbance, mild (7) History of alcohol dependence TL SAMUEL MD Jun 28, 2020 11:42
--- NOTE | 2020-06-28 11:50 | PDOC ---
Exam Note: Taurus Note: This note is a late entry for 06/26/2020 covers elements not covered in my initial note. Subjective: The patient was reviewed on telehealth rounds in the evening of 06/26/2020 with Jenna MOREL due to COVID-19 restrictions on the unit with no admissions and discharges. He slept 7-1/4 hours previous night. He becomes agitated at times. Received Zyprexa Zydis. In the [place] was [place], ramming his walker into the soriano, combative with cares previous night. Review of Systems: No CV, , pulmonary, eye, ENT system symptoms on review. Mental Status Exam: Oriented to himself. He is combative with cares. Insight and judgment, recent and remote memory, attention and concentration, fund of knowledge consistent with his diagnoses. Laboratory Data: Reviewed. 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 Anxiety disorder unspecified. Plan: No change from initial note. Assessment: Vital Signs/I&O: Vital Signs Date Time Temp Pulse Resp B/P (MAP) Pulse Ox O2 Delivery O2 Flow Rate FiO2 06/28/20 08:29 89 158/74 06/28/20 05:48 97.8 18 97 06/27/20 15:38 Room Air I & O 06/27/20 06/27/20 06/28/20 15:00 23:00 07:00 Intake Total 840 ml 240 ml Balance 840 ml 240 ml Current Medications: I have reviewed the current psychotropics carefully including drug interactions. Risk benefit ratio favors no change other than as noted in my dictated progress note. Diagnosis: Problems: (1) Impulse control disorder, unspecified (2) Anxiety disorder, unspecified (3) Dementia, vascular, with depression (4) Dementia, vascular, with delusions (5) Major neurocognitive disorder (6) Major neurocognitive disorder, due to vascular disease, with behavioral dist urbance, mild (7) History of alcohol dependence TL SAMUEL MD Jun 28, 2020 11:50
--- NOTE | 2020-06-28 11:58 | PDOC ---
Exam Note: Taurus Note: This note is a late entry for 06/27/2020 covers elements not covered in my initial note. Subjective: The patient was reviewed on telehealth rounds in the evening of 06/27/2020 with Maddy MOREL due to COVID-19 restrictions on the unit with no admissions and discharges. Per Meaghan MOREL in the evening, he slept 3-1/2 hours previous night. He seemed to be hallucinating, grabbing at things in the air at night, ramming his walker against the soriano in the evening, yelling and hyperverbal in the morning. Refused Depakene. He is looking for Sara. He received Zyprexa Zydis 8.45 p.m. Valproic acid level is subtherapeutic at 45 but clinically adequate. BUN 40, ammonia less than 10. Review of Systems: No CV, , pulmonary, eye, ENT system symptoms on review. Mental Status Exam: Oriented to himself. He seemed hallucinating, hyperverbal. Insight and judgment, recent and remote memory, attention and concentration, fund of knowledge consistent with his diagnoses. Laboratory Data: Reviewed. 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 Anxiety disorder unspecified. Plan: No change from initial note. We will treat his UTI which would help with agitation, mood lability as well. Assessment: Vital Signs/I&O: Vital Signs Date Time Temp Pulse Resp B/P (MAP) Pulse Ox O2 Delivery O2 Flow Rate FiO2 06/28/20 08:29 89 158/74 06/28/20 05:48 97.8 18 97 06/27/20 15:38 Room Air I & O 06/27/20 06/27/20 06/28/20 15:00 23:00 07:00 Intake Total 840 ml 240 ml Balance 840 ml 240 ml Current Medications: I have reviewed the current psychotropics carefully including drug interactions. Risk benefit ratio favors no change other than as noted in my dictated progress note. Diagnosis: Problems: (1) Impulse control disorder, unspecified (2) Anxiety disorder, unspecified (3) Dementia, vascular, with depression (4) Dementia, vascular, with delusions (5) Major neurocognitive disorder (6) Major neurocognitive disorder, due to vascular disease, with behavioral disturbance, mild (7) History of alcohol dependence JIMMIE,MAN M MD Jun 28, 2020 11:58
[2020-06-28 15:28] VITALS: BP 165/85
[2020-06-28] MEDS: MELATONIN 3 MG TABLET PO SCH (19:56)
[2020-06-28] MEDS: MIRTAZAPINE 7.5 MG TABLET. PO SCH (19:56)
[2020-06-28] MEDS: NYSTATIN TOPICAL POWDER 15GM BOTTLE. TP PRN (19:58)
[2020-06-28] MEDS ORDERED: traZODone 50 MG TABLET. PO PRN (21:00)
--- NOTE | 2020-06-28 21:54 | PDOC ---
Exam Note: [place] Note: Please also refer to the separate dictated note~for this date of service dictated separately.~Patient seen individually. Discussed the patient with Nursing staff reviewed the chart.~Reviewed interim history and current functioning. Reviewed vital signs,~Labs/ Radiology~and current medications noted below. Continue current treatment with the changes noted in the dictated addendum note Assessment: Vital Signs/I&O: Vital Signs Date Time Temp Pulse Resp B/P (MAP) Pulse Ox O2 Delivery O2 Flow Rate FiO2 06/28/20 21:01 98.4 96 06/28/20 19:56 69 165/85 06/28/20 15:28 17 Room Air I & O 06/27/20 06/27/20 06/28/20 15:00 23:00 07:00 Intake Total 840 ml 240 ml Balance 840 ml 240 ml Current Medications: Meds: Current Medications Medications (Trade) Dose Ordered Sig/Lit Route PRN Reason Start Time Stop Time Status Last Admin Dose Admin Mirtazapine (Remeron) 7.5 mg QHS PO 06/28/20 21:00 06/28/20 19:56 I have reviewed the current psychotropics carefully including drug interactions. Risk benefit ratio favors no change other than as noted in my dictated progress note. Diagnosis: Problems: (1) Impulse control disorder, unspecified (2) Anxiety disorder, unspecified (3) Dementia, vascular, with depression (4) Dementia, vascular, with delusions (5) Major neurocognitive disorder (6) Major neurocognitive disorder, due to vascular disease, with behavioral di sturbance, mild (7) History of alcohol dependence TL SAMUEL MD Jun 28, 2020 21:54
--- NOTE | 2020-06-28 22:56 | NUR ---
Nursing Note Pt in bed during assessment smiles on approach, pleasant and cooperative. Trazodone given prn pt has not been sleeping well. Resting in bed for now.
[2020-06-29] MEDS ORDERED: TRAZ-120 PO ×2 (02:15→10:02)
--- NOTE | 2020-06-29 04:18 | NUR ---
Nursing Note Pt awoke earlier and was trying to get out of bed, banging walker and talking to himself. Denied needing to use the restroom. Compliant with meds whole. Was getting a little upset, somewhat, repeated traz and zyprexa encouraged patient to get back to sleep. Resting on and off since then, no behaviors otherwise.
[2020-06-29] MEDS: THIAMINE 100 MG TABLET. PO SCH (05:08)
[2020-06-29] MEDS: LOSARTAN 50 MG TABLET. PO SCH (05:08)
[2020-06-29] MEDS: VALPROATE ACID 250 MG/5 ML ORAL SOLUTION PO SCH ×2 (05:08→16:59)
[2020-06-29] MEDS: LACTOBACILLUS RHAMNOSUS GG 1 CAPSULE. PO SCH ×2 (05:08→19:49)
[2020-06-29] MEDS: METOPROLOL TART IMMED RELEASE 50 MG TABLET PO SCH ×2 (05:09→19:49)
[2020-06-29] MEDS: QUEtiapine 25 MG TABLET. PO SCH ×3 (05:09→19:48)
[2020-06-29] MEDS: POTASSIUM BICARB 20 MEQ EFFERVESCENT TABLET. PO SCH ×2 (05:10→19:47)
[2020-06-29] MEDS: CEFDINIR 300 MG CAPSULE PO SCH ×2 (05:10→19:48)
[2020-06-29] MEDS: FOLIC ACID 1 MG TABLET PO SCH (05:10)
[2020-06-29] MEDS: MAGNESIUM OXIDE 400 MG TABLET PO SCH ×3 (05:10→19:49)
[2020-06-29] MEDS: [UNRECOGNIZED DRUG - OTHER] PO SCH (05:12)
[2020-06-29] MEDS: MULTIVITAMIN PO SCH (05:12)
[2020-06-29] MEDS: NYSTATIN 100,000 UNIT/GM TOPICAL CREAM 15GM TUBE. TP SCH ×2 (05:13→20:00)
[2020-06-29 05:52] VITALS: BP 162/76
--- NOTE | 2020-06-29 07:38 | NUR ---
Nursing note Pt much more agreeable this am with ADL's, not resistive, follows directions and says please and thank you. 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 Rambles at times, but is in much better spirits than prior shifts.
[2020-06-29] MEDS ORDERED: MIRT15TA PO (10:03)
--- NOTE | 2020-06-29 16:00 | NUR ---
Patient has been ambulating in his room today. He has been reading the newspaper, he has books available but does not read them. 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 He has been verbally redirectable this day. Patient compliant with medications given crushed in ice cream or pudding. The depakene has been given in cranberry juice this shift. Patient has had no angry outbursts and no adverse behaviors this shift. He has been calm and disorganized.
[2020-06-29 16:33] VITALS: BP 125/60
[2020-06-29] MEDS: MIRTAZAPINE 7.5 MG TABLET. PO SCH (19:48)
[2020-06-29] MEDS: MELATONIN 3 MG TABLET PO SCH (19:48)
[2020-06-29] MEDS: traZODone 50 MG TABLET. PO SCH (19:53)
[2020-06-29 21:19] VITALS: BP 110/67
--- NOTE | 2020-06-29 21:24 | NUR ---
Patient has been calm and pleasant this shift. He had an episode of stool incontinence and had gotten it onto his hands and then in various places in his room. At around 1930 the patient was found to be sitting cross legged in his room on the floor in only his brief during 15 minute checks . Patient was examined by this nurse and found to have a red gaston on his right palm at base of thumb and a reddened area under his right arm. Patient denies falling and denies hitting his head, he denies having any pain. Nurse checked patients vital signs, they were WNL (as charted). When asked, patient stated that he was "just doing that thing". Patient continued to deny having fallen, patient has history of using his bedside table as a walker and has been provided education many times about this. Patients walker was found near his chair and patient was near bed with bedside table. Patient was cooperative and with help of staff, he got into the shower chair. Staff covered patient with blanket and he was taken to the shower. Patient was calm and cooperative during shower. Patient compliant with medications given crushed and dissolved in orange juice. Patient in bed, bed low, alarm on and side rail up.
--- NOTE | 2020-06-29 21:54 | PDOC ---
Exam Note: Taurus Note: Please also refer to the separate dictated note~for this date of service dictated separately.~Patient seen individually. Discussed the patient with Nursing staff reviewed the chart.~Reviewed interim history and current functioning. Reviewed vital signs,~Labs/ Radiology~and current medications noted below. Continue current treatment with the changes noted in the dictated addendum note Assessment: Vital Signs/I&O: Vital Signs Date Time Temp Pulse Resp B/P (MAP) Pulse Ox O2 Delivery O2 Flow Rate FiO2 06/29/20 21:19 65 110/67 (81) 99 Room Air 06/29/20 16:33 97.6 06/29/20 05:52 18 I & O 06/28/20 06/28/20 06/29/20 15:00 23:00 07:00 Intake Total 360 ml 360 ml Balance 360 ml 360 ml Current Medications: Meds: Current Medications Medications (Trade) Dose Ordered Sig/Lit Route PRN Reason Start Time Stop Time Status Last Admin Dose Admin Trazodone HCl (Desyrel) 50 mg HS PO 06/29/20 21:00 06/29/20 19:53 I have reviewed the current psychotropics carefully including drug interactions. Risk benefit ratio favors no change other than as noted in my dictated progress note. Diagnosis: Problems: (1) Impulse control disorder, unspecified (2) Anxiety disorder, unspecified (3) Dementia, vascular, with depression (4) Dementia, vascular, with delusions (5) Major neurocognitive disorder (6) Major neurocognitive disorder, due to vascular disease, with behavioral disturbance, mild (7) History of alcohol dependence TL SAMUEL MD Jun 29, 2020 21:54
--- NOTE | 2020-06-30 04:25 | NUR ---
Nursing Note Pt in good spirits this am, allows tech to help him change is compliant pleasant and appropriate.
[2020-06-30 06:21] VITALS: BP 134/81
--- NOTE | 2020-06-30 06:35 | PDOC ---
Exam Note: [place] Note: This note is a late entry for 06/28/2020 covers elements not covered in my initial note. Subjective: The patient was reviewed on telehealth rounds due to COVID-19 restrictions on the unit in the evening of 06/28/2020 with Meaghan MOREL. He slept 3-1/4 hours previous night. He has been yelling, somewhat delusional, calling out for Sara. He had to be in the [place] hallway to reduce stimuli. Review of Systems: Ambulation impaired. No CV, , pulmonary, eye, ENT system symptoms on review. Mental Status Exam: Oriented to himself. Insight and judgment, recent and remote memory, attention and concentration, fund of knowledge consistent with his diagnoses. Laboratory Data: Reviewed. 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 Anxiety disorder unspecified. Plan: No change from initial note. We will start Remeron 7.5 mg p.o. h.s., trazodone 50 mg h.s. p.r.n. Continue rest unchanged. Assessment: Vital Signs/I&O: Vital Signs Date Time Temp Pulse Resp B/P (MAP) Pulse Ox O2 Delivery O2 Flow Rate FiO2 06/30/20 06:21 98.2 85 20 134/81 (98) 95 06/29/20 21:19 Room Air I & O 06/29/20 06/29/20 06/30/20 15:00 23:00 07:00 Intake Total 480 ml 360 ml Balance 480 ml 360 ml Current Medications: Meds: Current Medications Medications (Trade) Dose Ordered Sig/Lit Route PRN Reason Start Time Stop Time Status Last Admin Dose Admin Trazodone HCl (Desyrel) 50 mg HS PO 06/29/20 21:00 06/29/20 19:53 I have reviewed the current psychotropics carefully including drug interactions. Risk benefit ratio favors no change other than as noted in my dictated progress note. Diagnosis: Problems: (1) Impulse control disorder, unspecified (2) Anxiety disorder, unspecified (3) Dementia, vascular, with depression (4) Dementia, vascular, with delusions (5) Major neurocognitive disorder (6) Major neurocognitive disorder, due to vascular disease, with behavioral disturbance, mild (7) History of alcohol dependence TL SAMUEL MD Jun 30, 2020 06:35
--- NOTE | 2020-06-30 06:45 | PDOC ---
Exam Note: [place] Note: This note is a late entry for 06/29/2020 covers elements not covered in my initial note. Subjective: The patient was reviewed on telehealth rounds due to COVID-19 restrictions on the unit in the morning of 06/29/2020 with treatment team with Virgen Cardoso and Kerry (secondary social studies teacher) and Trista MOREL. He slept 7 hours previous night. Previous night, he did better, especially with male staff members. He seemed to be somewhat dismissive, irritable with female more-so. He is more compliant with his medications. He slept last night, less screaming, agitation. Review of Systems: No CV, , pulmonary, eye, ENT system symptoms on review. Mental Status Exam: Oriented to himself. He was less agitated as I met with him individually but did answer my questions, somewhat distractible. Insight and judgment, recent and remote memory, attention and concentration, fund of knowledge consistent with his diagnoses. Laboratory Data: Reviewed. 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 Anxiety disorder unspecified. Plan: No change from initial note. Assessment: Vital Signs/I&O: Vital Signs Date Time Temp Pulse Resp B/P (MAP) Pulse Ox O2 Delivery O2 Flow Rate FiO2 06/30/20 06:21 98.2 85 20 134/81 (98) 95 06/29/20 21:19 Room Air I & O 06/29/20 06/29/20 06/30/20 15:00 23:00 07:00 Intake Total 480 ml 360 ml Balance 480 ml 360 ml Current Medications: Meds: Current Medications Medications (Trade) Dose Ordered Sig/Lit Route PRN Reason Start Time Stop Time Status Last Admin Dose Admin Trazodone HCl (Desyrel) 50 mg HS PO 06/29/20 21:00 06/29/20 19:53 I have reviewed the current psychotropics carefully including drug interactions. Risk benefit ratio favors no change other than as noted in my dictated progress note. Diagnosis: Problems: (1) Alcohol dependence (2) Impulse control disorder, unspecified (3) Anxiety disorder, unspecified (4) Dementia, vascular, with depression (5) Dementia, vascular, with delusions (6) Major neurocognitive disorder (7) Major neurocognitive disorder, due to vascular disease, with behavioral disturbance, mild (8) History of alcohol dependence TL SAMUEL MD Jun 30, 2020 06:45
[2020-06-30] MEDS: QUEtiapine 25 MG TABLET. PO SCH ×3 (08:02→19:38)
[2020-06-30] MEDS: LACTOBACILLUS RHAMNOSUS GG 1 CAPSULE. PO SCH ×2 (08:02→19:36)
[2020-06-30] MEDS: VALPROATE ACID 250 MG/5 ML ORAL SOLUTION PO SCH ×2 (08:02→16:52)
[2020-06-30] MEDS: POTASSIUM BICARB 20 MEQ EFFERVESCENT TABLET. PO SCH ×2 (08:03→19:34)
[2020-06-30] MEDS: LOSARTAN 50 MG TABLET. PO SCH (08:03)
[2020-06-30] MEDS: METOPROLOL TART IMMED RELEASE 50 MG TABLET PO SCH ×2 (08:03→19:37)
[2020-06-30] MEDS: FOLIC ACID 1 MG TABLET PO SCH (08:03)
[2020-06-30] MEDS: CEFDINIR 300 MG CAPSULE PO SCH ×2 (08:03→19:36)
[2020-06-30] MEDS: MAGNESIUM OXIDE 400 MG TABLET PO SCH ×3 (08:03→19:37)
[2020-06-30] MEDS: THIAMINE 100 MG TABLET. PO SCH (08:04)
[2020-06-30] MEDS: NYSTATIN TOPICAL POWDER 15GM BOTTLE. TP PRN (08:04)
[2020-06-30] MEDS: MULTIVITAMIN PO SCH (08:06)
[2020-06-30] MEDS: [UNRECOGNIZED DRUG - OTHER] PO SCH (08:06)
[2020-06-30] MEDS: NYSTATIN 100,000 UNIT/GM TOPICAL CREAM 15GM TUBE. TP SCH ×2 (08:06→19:39)
[2020-06-30 15:44] VITALS: BP 132/81
--- NOTE | 2020-06-30 16:25 | NUR ---
Pt out in halls in am. Refused to wear mask and would not return to room. Pt escorted to [facility] with much resistance. Pt put self on floor and refused to get up for some time. When pt assisted from floor, pt was redirected several times to sit in chair at pt was unsteady on feet. Pt kept going to doors and banging on them or yelling out to staff. Pt took meds in boost. After lunch pt allowed staff to escort him back to room to be changed and then pt laid down for nap. Is resting quietly at this time.
[2020-06-30] MEDS: MIRTAZAPINE 7.5 MG TABLET. PO SCH (19:35)
[2020-06-30] MEDS: MELATONIN 3 MG TABLET PO SCH (19:35)
[2020-06-30] MEDS: traZODone 50 MG TABLET. PO SCH (19:37)
--- NOTE | 2020-06-30 21:53 | PDOC ---
Exam Note: [place]aurus Note: Please also refer to the separate dictated note~for this date of service dictated separately.~Patient seen individually. Discussed the patient with Nursing staff reviewed the chart.~Reviewed interim history and current functioning. Reviewed vital signs,~Labs/ Radiology~and current medications noted below. Continue current treatment with the changes noted in the dictated addendum note Assessment: Vital Signs/I&O: Vital Signs Date Time Temp Pulse Resp B/P (MAP) Pulse Ox O2 Delivery O2 Flow Rate FiO2 06/30/20 21:11 97.9 97 06/30/20 19:37 88 132/81 06/30/20 15:44 18 06/29/20 21:19 Room Air I & O 06/29/20 06/29/20 06/30/20 15:00 23:00 07:00 Intake Total 480 ml 360 ml Balance 480 ml 360 ml Current Medications: Meds: Current Medications Medications (Trade) Dose Ordered Sig/Lit Route PRN Reason Start Time Stop Time Status Last Admin Dose Admin Quetiapine Fumarate (SEROquel) 37.5 mg 1400,2100 PO 06/30/20 21:00 06/30/20 19:38 I have reviewed the current psychotropics carefully including drug interactions. Risk benefit ratio favors no change other than as noted in my dictated progress note. Diagnosis: Problems: (1) Impulse control disorder, unspecified (2) Anxiety disorder, unspecified (3) Dementia, vascular, with depression (4) Dementia, vascular, with delusions (5) Major neurocognitive disorder (6) Major neurocognitive disorder, due to vascular disease, with behavioral disturbance, mild (7) History of alcohol dependence TL SAMUEL MD Jun 30, 2020 21:53
--- NOTE | 2020-06-30 22:00 | NUR ---
Patient is in his room on assumption of care. He is irritable, disorganized. Compliant with medications crushed and mixed with boost. No agitation. Cooperative with ADL care. Denies any pain or discomfort. Patient appears to be sleeping comfortably at present time.
[2020-07-01 06:21] VITALS: BP 150/80
[2020-07-01] MEDS: MULTIVITAMIN PO SCH (08:11)
[2020-07-01] MEDS: POTASSIUM BICARB 20 MEQ EFFERVESCENT TABLET. PO SCH ×2 (08:11→20:08)
[2020-07-01] MEDS: METOPROLOL TART IMMED RELEASE 50 MG TABLET PO SCH ×2 (08:11→20:10)
[2020-07-01] MEDS: [UNRECOGNIZED DRUG - OTHER] PO SCH (08:11)
[2020-07-01] MEDS: THIAMINE 100 MG TABLET. PO SCH (08:11)
[2020-07-01] MEDS: LACTOBACILLUS RHAMNOSUS GG 1 CAPSULE. PO SCH ×2 (08:12→20:08)
[2020-07-01] MEDS: VALPROATE ACID 250 MG/5 ML ORAL SOLUTION PO SCH ×2 (08:12→17:00)
[2020-07-01] MEDS: FOLIC ACID 1 MG TABLET PO SCH (08:12)
[2020-07-01] MEDS: CEFDINIR 300 MG CAPSULE PO SCH ×2 (08:12→20:09)
[2020-07-01] MEDS: LOSARTAN 50 MG TABLET. PO SCH (08:12)
[2020-07-01] MEDS: MAGNESIUM OXIDE 400 MG TABLET PO SCH ×3 (08:12→20:09)
[2020-07-01] MEDS: QUEtiapine 50 MG TABLET. PO SCH (08:13)
[2020-07-01] MEDS: NYSTATIN 100,000 UNIT/GM TOPICAL CREAM 15GM TUBE. TP SCH ×2 (08:14→20:10)
[2020-07-01] MEDS: QUEtiapine 25 MG TABLET. PO SCH ×2 (12:30→20:09)
[2020-07-01 15:31] VITALS: BP 109/66
--- NOTE | 2020-07-01 17:10 | NUR ---
Pt has been pleasantly confused. Meds taken dissolved in boost. Up for shower. Tolerated well.
[2020-07-01] MEDS: MELATONIN 3 MG TABLET PO SCH (20:09)
[2020-07-01] MEDS: MIRTAZAPINE 7.5 MG TABLET. PO SCH (20:09)
[2020-07-01] MEDS: traZODone 50 MG TABLET. PO SCH (20:10)
--- NOTE | 2020-07-01 21:51 | PDOC ---
Exam Note: Taurus Note: Please also refer to the separate dictated note~for this date of service dictated separately.~Patient seen individually. Discussed the patient with Nursing staff reviewed the chart.~Reviewed interim history and current functioning. Reviewed vital signs,~Labs/ Radiology~and current medications noted below. Continue current treatment with the changes noted in the dictated addendum note Assessment: Vital Signs/I&O: Vital Signs Date Time Temp Pulse Resp B/P (MAP) Pulse Ox O2 Delivery O2 Flow Rate FiO2 07/01/20 20:10 70 109/66 07/01/20 20:00 98.5 99 Room Air 07/01/20 15:31 20 I & O 06/30/20 06/30/20 07/01/20 15:00 23:00 07:00 Intake Total 360 ml 480 ml Balance 360 ml 480 ml Current Medications: Meds: Current Medications Medications (Trade) Dose Ordered Sig/Lit Route PRN Reason Start Time Stop Time Status Last Admin Dose Admin Quetiapine Fumarate (SEROquel) 50 mg DAILY PO 07/01/20 09:00 07/01/20 08:13 I have reviewed the current psychotropics carefully including drug interactions. Risk benefit ratio favors no change other than as noted in my dictated progress note. Diagnosis: Problems: (1) Impulse control disorder, unspecified (2) Anxiety disorder, unspecified (3) Dementia, vascular, with depression (4) Dementia, vascular, with delusions (5) Major neurocognitive disorder (6) Major neurocognitive disorder, due to vascular disease, with behavioral disturbance, mild (7) History of alcohol dependence TL SAMUEL MD Jul 01, 2020 21:51
--- NOTE | 2020-07-01 22:03 | NUR ---
Pt sleeping in bed this evening. Compliant with medications crushed in Boost. Irritable at times but not agitated or combative.
[2020-07-02 05:30] VITALS: BP 127/68
--- NOTE | 2020-07-02 06:00 | NUR ---
Pt has been compliant with all cares throughout the night. No aggression noted. Pt did have one 15 minute episode of yelling out, however PRNs were not needed.
[2020-07-02] MEDS: MULTIVITAMIN PO SCH (07:44)
[2020-07-02] MEDS: NYSTATIN 100,000 UNIT/GM TOPICAL CREAM 15GM TUBE. TP SCH ×2 (07:44→20:21)
[2020-07-02] MEDS: [UNRECOGNIZED DRUG - OTHER] PO SCH (07:44)
[2020-07-02] MEDS: FOLIC ACID 1 MG TABLET PO SCH (07:45)
[2020-07-02] MEDS: THIAMINE 100 MG TABLET. PO SCH (07:45)
[2020-07-02] MEDS: QUEtiapine 50 MG TABLET. PO SCH (07:45)
[2020-07-02] MEDS: MAGNESIUM OXIDE 400 MG TABLET PO SCH ×3 (07:45→20:20)
[2020-07-02] MEDS: LACTOBACILLUS RHAMNOSUS GG 1 CAPSULE. PO SCH ×2 (07:45→20:20)
[2020-07-02] MEDS: POTASSIUM BICARB 20 MEQ EFFERVESCENT TABLET. PO SCH ×2 (07:46→20:21)
[2020-07-02] MEDS: METOPROLOL TART IMMED RELEASE 50 MG TABLET PO SCH ×2 (07:46→20:20)
[2020-07-02] MEDS: LOSARTAN 50 MG TABLET. PO SCH (07:46)
[2020-07-02] MEDS: VALPROATE ACID 250 MG/5 ML ORAL SOLUTION PO SCH ×2 (07:47→16:17)
--- NOTE | 2020-07-02 09:36 | NUR ---
Pt up in bed for breakfast. Compliant and calm. Meds taken dissolved in boost.
[2020-07-02] MEDS: QUEtiapine 25 MG TABLET. PO SCH ×2 (12:41→20:20)
[2020-07-02 15:24] VITALS: BP 98/60
[2020-07-02] MEDS: MELATONIN 3 MG TABLET PO SCH (20:20)
[2020-07-02] MEDS: MIRTAZAPINE 7.5 MG TABLET. PO SCH (20:20)
[2020-07-02] MEDS: traZODone 50 MG TABLET. PO SCH (20:20)
--- NOTE | 2020-07-02 21:54 | PDOC ---
Exam Note: Taurus Note: Please also refer to the separate dictated note~for this date of service dictated separately.~Patient seen individually. Discussed the patient with Nursing staff reviewed the chart.~Reviewed interim history and current functioning. Reviewed vital signs,~Labs/ Radiology~and current medications noted below. Continue current treatment with the changes noted in the dictated addendum note Assessment: Vital Signs/I&O: Vital Signs Date Time Temp Pulse Resp B/P (MAP) Pulse Ox O2 Delivery O2 Flow Rate FiO2 07/02/20 21:05 98.4 96 07/02/20 20:20 72 98/60 07/02/20 15:24 18 Room Air I & O 07/01/20 07/01/20 07/02/20 15:00 23:00 07:00 Intake Total 840 ml 480 ml Balance 840 ml 480 ml Current Medications: I have reviewed the current psychotropics carefully including drug interactions. Risk benefit ratio favors no change other than as noted in my dictated progress note. Diagnosis: Problems: (1) Impulse control disorder, unspecified (2) Anxiety disorder, unspecified (3) Dementia, vascular, with depression (4) Dementia, vascular, with delusions (5) Major neurocognitive disorder (6) Major neurocognitive disorder, due to vascular disease, with behavioral disturbance, mild (7) History of alcohol dependence TL SAMUEL MD Jul 02, 2020 21:54
--- NOTE | 2020-07-02 21:54 | NUR ---
Pt drowsy this evening. Compliant with crushed medications in orange juice. No agitation or aggression.
[2020-07-03 05:23] VITALS: BP 130/70
--- NOTE | 2020-07-03 05:26 | NUR ---
Pt has been compliant with all ADL cares throughout the night. Pt pleasant, not delusional and has not yelled out this shift.
--- NOTE | 2020-07-03 06:55 | PDOC ---
Exam Note: Taurus Note: This note is a late entry for 06/30/2020 covers elements not covered in my initial note. Subjective: The patient was reviewed on telehealth rounds due to COVID-19 restrictions on the unit in the evening of 06/30/2020 with Teresa MOREL. Discussed with nursing staff, reviewed the chart. After breakfast the patient was yelling, refusing to use face mask, had to be in the [place] hallway, ramming his door against the nursing staff wall, yelling but after lunch he did better, more compliant with antibiotics as UTI resolves. I think his agitation well improved as well. Review of Systems: Ambulation impaired. No CV, , pulmonary, eye, ENT system symptoms on review. Mental Status Exam: Oriented to himself. Insight and judgment, recent and remote memory, attention and concentration, fund of knowledge consistent with h is diagnoses. Laboratory Data: Reviewed. 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 Anxiety disorder unspecified. Plan: No change from initial note. The patient is currently on Seroquel 37.5 mg t.i.d. We will increase the morning dosage to 50 mg. Continue other 2 dosages of 37.5 mg. Continue rest psychotropics unchanged. Assessment: Vital Signs/I&O: Vital Signs Date Time Temp Pulse Resp B/P (MAP) Pulse Ox O2 Delivery O2 Flow Rate FiO2 07/03/20 05:23 97.5 70 18 130/70 (90) 98 07/02/20 15:24 Room Air I & O 07/02/20 07/02/20 07/03/20 15:00 23:00 07:00 Intake Total 780 ml 300 ml Balance 780 ml 300 ml Current Medications: I have reviewed the current psychotropics carefully including drug interactions. Risk benefit ratio favors no change other than as noted in my dictated progress note. Diagnosis: Problems: (1) Impulse control disorder, unspecified (2) Anxiety disorder, unspecified (3) Dementia, vascular, with depression (4) Dementia, vascular, with delusions (5) Major neurocognitive disorder (6) Major neurocognitive disorder, due to vascular disease, with behavioral disturbance, mild (7) History of alcohol dependence TL SAMUEL MD Jul 03, 2020 06:55
--- NOTE | 2020-07-03 07:03 | PDOC ---
Exam Note: Taurus Note: This note is a late entry for 07/01/2020 covers elements not covered in my initial note. Subjective: The patient was reviewed on telehealth rounds due to COVID-19 restrictions on the unit in the evening of 07/01/2020 with Teresa MOREL. Discussed with nursing staff, reviewed the chart. He remains confused, somewhat dismissive as I met with him on telehealth rounds, had a good day, yelling at times, incontinent during showers, then was not yelling, less agitated previous night. Review of Systems: No CV, , pulmonary, eye, ENT system symptoms on review. Mental Status Exam: Oriented to himself. He was less agitated as I met with him individually on telehealth rounds. Insight and judgment, recent and remote memory, attention and concentration, fund of knowledge consistent with his diagnoses. Laboratory Data: Reviewed. 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 Anxiety disorder unspecified. Plan: No change from initial note. Assessment: Vital Signs/I&O: Vital Signs Date Time Temp Pulse Resp B/P (MAP) Pulse Ox O2 Delivery O2 Flow Rate FiO2 07/03/20 05:23 97.5 70 18 130/70 (90) 98 07/02/20 15:24 Room Air I & O 07/02/20 07/02/20 07/03/20 15:00 23:00 07:00 Intake Total 780 ml 300 ml Balance 780 ml 300 ml Current Medications: I have reviewed the current psychotropics carefully including drug interactions. Risk benefit ratio favors no change other than as noted in my dictated progress note. Diagnosis: Problems: (1) Impulse control disorder, unspecified (2) Anxiety disorder, unspecified (3) Dementia, vascular, with depression (4) Dementia, vascular, with delusions (5) Major neurocognitive disorder (6) Major neurocognitive disorder, due to vascular disease, with behavioral disturbance, mild (7) History of alcohol dependence TL SAMUEL MD Jul 03, 2020 07:03
--- NOTE | 2020-07-03 07:09 | PDOC ---
Exam Note: Taurus Note: This note is a late entry for 07/02/2020 covers elements not covered in my initial note. Subjective: The patient was reviewed on telehealth rounds due to COVID-19 restrictions on the unit in the evening of 07/02/2020 with Corby MOREL. Discussed with nursing staff, reviewed the chart. The patient has been less aggressive, less yelling at night except for about 15 minutes. During the day today, he has done better. He slept 8-1/4 hours previous night. Review of Systems: No CV, , pulmonary, eye, ENT system symptoms on review. Reliability poor. Gait unsteady. Mental Status Exam: Oriented to himself. Insight and judgment, recent and remote memory, attention and concentration, fund of knowledge consistent with his diagnoses. Laboratory Data: Reviewed. 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 Anxiety disorder unspecified. Plan: No change from initial note. Assessment: Vital Signs/I&O: Vital Signs Date Time Temp Pulse Resp B/P (MAP) Pulse Ox O2 Delivery O2 Flow Rate FiO2 07/03/20 05:23 97.5 70 18 130/70 (90) 98 07/02/20 15:24 Room Air I & O 07/02/20 07/02/20 07/03/20 15:00 23:00 07:00 Intake Total 780 ml 300 ml Balance 780 ml 300 ml Current Medications: I have reviewed the current psychotropics carefully including drug interactions. Risk benefit ratio favors no change other than as noted in my dictated progress note. Diagnosis: Problems: (1) Impulse control disorder, unspecified (2) Anxiety disorder, unspecified (3) Dementia, vascular, with depression (4) Dementia, vascular, with delusions (5) Major neurocognitive disorder (6) Major neurocognitive disorder, due to vascular disease, with behavioral disturbance, mild (7) History of alcohol dependence TL SAMUEL MD Jul 03, 2020 07:09
[2020-07-03] MEDS: FOLIC ACID 1 MG TABLET PO SCH ×2 (07:59→11:11)
[2020-07-03] MEDS: MAGNESIUM OXIDE 400 MG TABLET PO SCH ×4 (07:59→21:14)
[2020-07-03] MEDS: QUEtiapine 50 MG TABLET. PO SCH ×2 (07:59→11:12)
[2020-07-03] MEDS: THIAMINE 100 MG TABLET. PO SCH ×2 (07:59→11:12)
[2020-07-03] MEDS: POTASSIUM BICARB 20 MEQ EFFERVESCENT TABLET. PO SCH ×3 (08:00→21:13)
[2020-07-03] MEDS: LACTOBACILLUS RHAMNOSUS GG 1 CAPSULE. PO SCH ×3 (08:00→21:13)
[2020-07-03] MEDS: LOSARTAN 50 MG TABLET. PO SCH ×2 (08:00→11:11)
[2020-07-03] MEDS: METOPROLOL TART IMMED RELEASE 50 MG TABLET PO SCH ×3 (08:00→21:14)
[2020-07-03] MEDS: VALPROATE ACID 250 MG/5 ML ORAL SOLUTION PO SCH ×3 (08:01→17:45)
[2020-07-03] MEDS: [UNRECOGNIZED DRUG - OTHER] PO SCH ×2 (08:01→11:10)
[2020-07-03] MEDS: MULTIVITAMIN PO SCH ×2 (08:01→11:10)
[2020-07-03] MEDS: NYSTATIN 100,000 UNIT/GM TOPICAL CREAM 15GM TUBE. TP SCH ×2 (09:00→21:00)
--- NOTE | 2020-07-03 11:13 | NUR ---
Attempted to provide patient's morning medications crushed, hidden in orange juice. Patient drank about half of the juice, refusing to drink any more. Morning medications non-administered. Will report to MD and continue to monitor.
[2020-07-03] MEDS: QUEtiapine 25 MG TABLET. PO SCH ×2 (15:00→21:14)
--- NOTE | 2020-07-03 15:00 | NUR ---
Patient has been lethargic and drowsy most of this shift. Attempted to provide 1400 scheduled medications, patient has been asleep since before 1230. Will hold medications and continue to monitor.
[2020-07-03 15:28] VITALS: BP 104/59
--- NOTE | 2020-07-03 18:24 | NUR ---
Patient was more energized later in the afternoon, he was compliant with a shower assisted by the EMPLOYMENT LAW ATTORNEY about 17:00 and fed himself supper. He was mildly defensive and resistive to directions to his chair and assistance with his meal, but otherwise calm and pleasant. Will continue to monitor and report to oncoming shift.
[2020-07-03] MEDS: traZODone 50 MG TABLET. PO SCH (21:14)
[2020-07-03] MEDS: MELATONIN 3 MG TABLET PO SCH (21:17)
[2020-07-03] MEDS: MIRTAZAPINE 7.5 MG TABLET. PO SCH (21:17)
--- NOTE | 2020-07-03 21:50 | PDOC ---
Exam Note: Taurus Note: Please also refer to the separate dictated note~for this date of service dictated separately.~Patient seen individually. Discussed the patient with Nursing staff reviewed the chart.~Reviewed interim history and current functioning. Reviewed vital signs,~Labs/ Radiology~and current medications noted below. Continue current treatment with the changes noted in the dictated addendum note Assessment: Vital Signs/I&O: Vital Signs Date Time Temp Pulse Resp B/P (MAP) Pulse Ox O2 Delivery O2 Flow Rate FiO2 07/03/20 21:14 73 132/87 07/03/20 20:17 98.2 97 07/03/20 15:28 16 Room Air I & O 07/02/20 07/02/20 07/03/20 15:00 23:00 07:00 Intake Total 780 ml 300 ml Balance 780 ml 300 ml Current Medications: I have reviewed the current psychotropics carefully including drug interactions. Risk benefit ratio favors no change other than as noted in my dictated progress note. Diagnosis: Problems: (1) Impulse control disorder, unspecified (2) Anxiety disorder, unspecified (3) Dementia, vascular, with depression (4) Dementia, vascular, with delusions (5) Major neurocognitive disorder (6) Major neurocognitive disorder, due to vascular disease, with behavioral disturbance, mild TL SAMUEL MD Jul 03, 2020 21:50
--- NOTE | 2020-07-04 01:28 | NUR ---
Nursing Note The patient was irritable and argumentative during medication pass and assessment. The patient was very labile often talking calmly and yelling in the span of a sentence. The patient took his medication crushed in vanilla ice cream. The patient was unable to participate meaningfully in any conversation with this nurse. The patient is currently sleeping in his room.
[2020-07-04 05:55] VITALS: BP 155/88
[2020-07-04] MEDS: LACTOBACILLUS RHAMNOSUS GG 1 CAPSULE. PO SCH ×2 (07:51→20:13)
[2020-07-04] MEDS: QUEtiapine 50 MG TABLET. PO SCH (07:51)
[2020-07-04] MEDS: MAGNESIUM OXIDE 400 MG TABLET PO SCH ×3 (07:51→20:13)
[2020-07-04] MEDS: VALPROATE ACID 250 MG/5 ML ORAL SOLUTION PO SCH ×2 (07:51→16:38)
[2020-07-04] MEDS: LOSARTAN 50 MG TABLET. PO SCH (07:52)
[2020-07-04] MEDS: METOPROLOL TART IMMED RELEASE 50 MG TABLET PO SCH (07:52)
[2020-07-04] MEDS: [UNRECOGNIZED DRUG - OTHER] PO SCH (07:52)
[2020-07-04] MEDS: THIAMINE 100 MG TABLET. PO SCH (07:52)
[2020-07-04] MEDS: MULTIVITAMIN PO SCH (07:52)
[2020-07-04] MEDS: FOLIC ACID 1 MG TABLET PO SCH (07:52)
[2020-07-04] MEDS: NYSTATIN 100,000 UNIT/GM TOPICAL CREAM 15GM TUBE. TP SCH ×2 (07:53→21:00)
[2020-07-04] MEDS: POTASSIUM BICARB 20 MEQ EFFERVESCENT TABLET. PO SCH ×2 (07:56→20:12)
--- NOTE | 2020-07-04 09:45 | NUR ---
Patient has been in bed this shift. He only ate his waffle for breakfast, chewed up the sausage and spit it on the bedside table. Patient is medication compliant with medications given crushed in drink with breakfast. Patient is disorganized and has rambling speech. He is unwilling/unable to answer orientation questions and will not tell nurse when his date is. Patient was able to say his full name when asked. This nurse observed patient "reading" the newspaper. He was holding the newspaper upside down. Patient denied pain when asked and is able to make his needs known.
[2020-07-04] MEDS: QUEtiapine 25 MG TABLET. PO SCH ×2 (12:16→20:14)
--- NOTE | 2020-07-04 12:18 | NUR ---
Patient is very reluctant to take medications when not given at a meal. (meds must be hidden in food or drink), 1400 meds given early so that patient will eat the food they are in.
[2020-07-04 15:04] VITALS: BP 100/59
--- NOTE | 2020-07-04 17:04 | NUR ---
Patients cannot leave their rooms related to this units COVID-19 precautions and this patient has become noticeably weaker. Upon his arrival he could safely and independently transfer from bed to standing and from standing to chair and was able to use his walker independently to ambulate with a steady gait. At this time he requires additional assistance to transfer and is unsteady at times. When walking with his walker he can only go small distances and tires easily and is also unsteady. Patient was cooperative with brief change, he is a very modest man and prefers to have a blanket nearby to cover himself during changes. Patient continues to enjoy his soup with dinner and will usually eat 75% of meal when given an extended dining time. Patient is being given nutritional shakes with his meals. Patient has taken his medication crushed in ice cream and juices today.
[2020-07-04] MEDS: MELATONIN 3 MG TABLET PO SCH (20:13)
[2020-07-04] MEDS: traZODone 50 MG TABLET. PO SCH (20:13)
[2020-07-04] MEDS: MIRTAZAPINE 7.5 MG TABLET. PO SCH (20:14)
[2020-07-04 21:00] VITALS: BP 126/71
--- NOTE | 2020-07-04 21:53 | PDOC ---
Exam Note: Taurus Note: Please also refer to the separate dictated note~for this date of service dictated separately.~Patient seen individually. Discussed the patient with Nursing staff reviewed the chart.~Reviewed interim history and current functioning. Reviewed vital signs,~Labs/ Radiology~and current medications noted below. Continue current treatment with the changes noted in the dictated addendum note Assessment: Vital Signs/I&O: Vital Signs Date Time Temp Pulse Resp B/P (MAP) Pulse Ox O2 Delivery O2 Flow Rate FiO2 07/04/20 15:04 97.5 72 16 100/59 (73) 98 07/03/20 15:28 Room Air I & O 07/03/20 07/03/20 07/04/20 15:00 23:00 07:00 Intake Total 692 ml 725 ml 240 ml Balance 692 ml 725 ml 240 ml Current Medications: I have reviewed the current psychotropics carefully including drug interactions. Risk benefit ratio favors no change other than as noted in my dictated progress note. Diagnosis: Problems: (1) Impulse control disorder, unspecified (2) Anxiety disorder, unspecified (3) Dementia, vascular, with depression (4) Dementia, vascular, with delusions (5) Major neurocognitive disorder (6) Major neurocognitive disorder, due to vascular disease, with behavioral dis turbance, mild (7) History of alcohol dependence TL SAMUEL MD Jul 04, 2020 21:53
[2020-07-05] MEDS: METOPROLOL TART IMMED RELEASE 50 MG TABLET PO SCH ×3 (01:17→20:20)
--- NOTE | 2020-07-05 06:22 | NUR ---
Nursing Note The patient was calm and cooperative with his assessment and medication pass. The patient took his medication crushed in ice cream. The patient remains disorganized and labile during interactions. The patient is currently awake in his bed.
[2020-07-05 06:26] VITALS: BP 145/81
[2020-07-05 07:04] LABS: BASO % 1 % (0-3); EOS # 0.1 x10^3/uL (0.0-0.7); EOS % 3 % (0-3); HEMATOCRIT 26.3 % (39.0-53.0); HEMOGLOBIN 8.9 g/dL (13.0-17.5); LYMPH # 0.6 x10^3/uL (1.0-4.8); LYMPH % 13 % (24-48); MEAN CORPUSCULAR HEMOGLOBIN 33 pg (25-35); MEAN CORPUSCULAR HGB CONC 34 g/dL (31-37); MEAN CORPUSCULAR VOLUME 97 fL (79-100); MONO # 0.5 x10^3/uL (0.0-1.1); MONO % 11 % (0-9); NEUT # 3.3 x10^3uL (1.8-7.7); NEUT % 73 % (31-73); PLATELET COUNT 162 x10^3/uL (140-400); RED BLOOD COUNT 2.71 x10^6/uL (4.30-5.70); RED CELL DISTRIBUTION WIDTH 14.8 % (11.5-14.5); WHITE BLOOD COUNT 4.5 x10^3/uL (4.0-11.0)
[2020-07-05 07:06] LABS: ALBUMIN 2.3 g/dL (3.4-5.0); ALBUMIN/GLOBULIN RATIO 0.6 (1.0-1.7); CALCIUM 8.7 mg/dL (8.5-10.1); CREATININE 1.1 mg/dL (0.7-1.3); GFR 64.1; POTASSIUM 4.7 mmol/L (3.5-5.1); TOTAL BILIRUBIN 0.4 mg/dL (0.2-1.0); TOTAL PROTEIN 6.1 g/dL (6.4-8.2)
[2020-07-05] MEDS: VALPROATE ACID 250 MG/5 ML ORAL SOLUTION PO SCH ×2 (07:50→16:56)
[2020-07-05] MEDS: MAGNESIUM OXIDE 400 MG TABLET PO SCH ×3 (09:23→20:19)
[2020-07-05] MEDS: QUEtiapine 50 MG TABLET. PO SCH (09:23)
[2020-07-05] MEDS: FOLIC ACID 1 MG TABLET PO SCH (09:23)
[2020-07-05] MEDS: POTASSIUM BICARB 20 MEQ EFFERVESCENT TABLET. PO SCH ×2 (09:23→20:19)
[2020-07-05] MEDS: LACTOBACILLUS RHAMNOSUS GG 1 CAPSULE. PO SCH ×2 (09:24→20:18)
[2020-07-05] MEDS: LOSARTAN 50 MG TABLET. PO SCH (09:24)
[2020-07-05] MEDS: [UNRECOGNIZED DRUG - OTHER] PO SCH (09:24)
[2020-07-05] MEDS: THIAMINE 100 MG TABLET. PO SCH (09:24)
[2020-07-05] MEDS: NYSTATIN 100,000 UNIT/GM TOPICAL CREAM 15GM TUBE. TP SCH ×2 (09:24→20:18)
[2020-07-05] MEDS: MULTIVITAMIN PO SCH (09:24)
--- NOTE | 2020-07-05 11:05 | NUR ---
Patient is delusional, stated he is on an airplane. He told [employer] it is 1938 and he cannot take a shower today because showers have not been invented yet. Patient did not eat breakfast and has been picking at the pudding that the medications are hidden in. Depakene administered in grape juice (patient states he does not like grape juice). Patient has drank about half of the grape juice. Patient is awake and has been sitting on side of the bed. He has been calm and cooperative.
[2020-07-05] MEDS: QUEtiapine 25 MG TABLET. PO SCH (14:10)
[2020-07-05 15:20] VITALS: BP 101/66
--- NOTE | 2020-07-05 16:56 | NUR ---
Patient has vehemently refused to take his scheduled shower today. He has been asked several times and continues to refuse. Patient has yelled at staff and called them names (idiots) when told it is his shower time. Patient seems to be more cooperative with male staff. He has been calm at other times. Patient has been withdrawn to his room, has read the newspaper and looked at a book. He is not eating very much at meals.
--- NOTE | 2020-07-05 19:12 | NUR ---
Patients RBC, HGB, HCT trending down. Spoke to Dr. Vega regarding this. He said to continue to monitor and he might need a hematology consult at discharge.
[2020-07-05] MEDS: MELATONIN 3 MG TABLET PO SCH (20:18)
[2020-07-05] MEDS: MIRTAZAPINE 7.5 MG TABLET. PO SCH (20:18)
[2020-07-05] MEDS: traZODone 50 MG TABLET. PO SCH (20:19)
[2020-07-05] MEDS: risperiDONE 0.5 MG TABLET. PO SCH (20:39)
--- NOTE | 2020-07-05 21:36 | NUR ---
Nursing Note Pt confused, and resistive to meds but took in ice cream. Now resting well.
--- NOTE | 2020-07-05 22:28 | PDOC ---
Exam Note: Taurus Note: This note is a late entry for 07/03/2020 covers elements not covered in my initial note. Subjective: The patient was reviewed on telehealth rounds due to COVID-19 restrictions on the unit in the evening of 07/03/2020 with Franky MOREL. Discussed with nursing staff, reviewed the chart. The patient slept 8-1/2 hours previous night. He has been somewhat drowsy, less agitated and labile, less disruptive. Review of Systems: Positive for tiredness. Impaired ambulation. No CV, , pulmonary, eye, ENT system symptoms on review. Reliability poor. Mental Status Exam: Oriented to himself. Speech has some latency, less delusional. No suicidal or homicidal ideation. Insight and judgment, recent and remote memory, attention and concentration, fund of knowledge consistent with his diagnoses. Laboratory Data: Reviewed. 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 Anxiety disorder unspecified. Plan: The patient has been less agitated, less yelling, less labile. Treating his UTI seems to have helped in addition to adjusting his psychotropics. Assessment: Vital Signs/I&O: Vital Signs Date Time Temp Pulse Resp B/P (MAP) Pulse Ox O2 Delivery O2 Flow Rate FiO2 07/05/20 20:20 67 101/66 07/05/20 19:42 97.9 96 07/05/20 15:20 17 Room Air I & O 07/04/20 07/04/20 07/05/20 14:59 22:59 06:59 Intake Total 600 ml 360 ml 125 ml Balance 600 ml 360 ml 125 ml Labs: Laboratory Tests Test 07/05/20 06:40 White Blood Count 4.5 x10^3/uL (4.0-11.0) Red Blood Count 2.71 x10^6/uL (4.30-5.70) L Hemoglobin 8.9 g/dL (13.0-17.5) L Hematocrit 26.3 % (39.0-53.0) L Mean Corpuscular Volume 97 fL (79-100) Mean Corpuscular Hemoglobin 33 pg (25-35) Mean Corpuscular Hemoglobin Concent 34 g/dL (31-37) Red Cell Distribution Width 14.8 % (11.5-14.5) H Platelet Count 162 x10^3/uL (140-400) Neutrophils (%) (Auto) 73 % (31-73) Lymphocytes (%) (Auto) 13 % (24-48) L Monocytes (%) (Auto) 11 % (0-9) H Eosinophils (%) (Auto) 3 % (0-3) Basophils (%) (Auto) 1 % (0-3) Neutrophils # (Auto) 3.3 x10^3uL (1.8-7.7) Lymphocytes # (Auto) 0.6 x10^3/uL (1.0-4.8) L Monocytes # (Auto) 0.5 x10^3/uL (0.0-1.1) Eosinophils # (Auto) 0.1 x10^3/uL (0.0-0.7) Basophils # (Auto) 0.0 x10^3/uL (0.0-0.2) Sodium Level 141 mmol/L (136-145) Potassium Level 4.7 mmol/L (3.5-5.1) Chloride Level 108 mmol/L (98-107) H Carbon Dioxide Level 26 mmol/L (21-32) Anion Gap 7 (6-14) Blood Urea Nitrogen 26 mg/dL (8-26) Creatinine 1.1 mg/dL (0.7-1.3) Estimated GFR (Cockcroft-Gault) 64.1 BUN/Creatinine Ratio 24 (6-20) H Glucose Level 87 mg/dL (70-99) Calcium Level 8.7 mg/dL (8.5-10.1) Total Bilirubin 0.4 mg/dL (0.2-1.0) Aspartate Amino Transferase (AST) 18 U/L (15-37) Alanine Aminotransferase (ALT) 11 U/L (16-63) L Alkaline Phosphatase 50 U/L (46-116) Total Protein 6.1 g/dL (6.4-8.2) L Albumin 2.3 g/dL (3.4-5.0) L Albumin/Globulin Ratio 0.6 (1.0-1.7) L Current Medications: Meds: Current Medications Medications (Trade) Dose Ordered Sig/Lit Route PRN Reason Start Time Stop Time Status Last Admin Dose Admin Risperidone (RisperDAL) 0.5 mg HS PO 07/05/20 21:00 07/05/20 20:39 I have reviewed the current psychotropics carefully including drug interactions. Risk benefit ratio favors no change other than as noted in my dictated progress note. Diagnosis: Problems: (1) Impulse control disorder, unspecified (2) Anxiety disorder, unspecified (3) Dementia, vascular, with depression (4) Dementia, vascular, with delusions (5) Major neurocognitive disorder (6) Major neurocognitive disorder, due to vascular disease, with behavioral disturbance, mild TL SAMUEL MD Jul 05, 2020 22:28
--- NOTE | 2020-07-05 22:30 | PDOC ---
Exam Note: Taurus Note: This note is a late entry for 07/04/2020 covers elements not covered in my initial note. Subjective: The patient was reviewed on telehealth rounds due to COVID-19 restrictions on the unit in the evening of 07/04/2020 with Meaghan MOREL. Discussed with nursing staff, reviewed the chart. The patient slept 4-1/4 hours previous night. He remains confused, more cooperative, resistive to meds at times, took them later with encouragement. We will repeat labs later in the morning. Review of Systems: Ambulation impaired. No CV, , pulmonary, eye, ENT system symptoms on review. Mental Status Exam: Oriented to himself. Speech has some latency. Insight and judgment, recent and remote memory, attention and concentration, fund of knowledge consistent with his diagnoses. Laboratory Data: Reviewed. 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 Anxiety disorder unspecified. Plan: No change from initial note. Assessment: Vital Signs/I&O: Vital Signs Date Time Temp Pulse Resp B/P (MAP) Pulse Ox O2 Delivery O2 Flow Rate FiO2 07/05/20 20:20 67 101/66 07/05/20 19:42 97.9 96 07/05/20 15:20 17 Room Air I & O 07/04/20 07/04/20 07/05/20 14:59 22:59 06:59 Intake Total 600 ml 360 ml 125 ml Balance 600 ml 360 ml 125 ml Labs: Laboratory Tests Test 07/05/20 06:40 White Blood Count 4.5 x10^3/uL (4.0-11.0) Red Blood Count 2.71 x10^6/uL (4.30-5.70) L Hemoglobin 8.9 g/dL (13.0-17.5) L Hematocrit 26.3 % (39.0-53.0) L Mean Corpuscular Volume 97 fL (79-100) Mean Corpuscular Hemoglobin 33 pg (25-35) Mean Corpuscular Hemoglobin Concent 34 g/dL (31-37) Red Cell Distribution Width 14.8 % (11.5-14.5) H Platelet Count 162 x10^3/uL (140-400) Neutrophils (%) (Auto) 73 % (31-73) Lymphocytes (%) (Auto) 13 % (24-48) L Monocytes (%) (Auto) 11 % (0-9) H Eosinophils (%) (Auto) 3 % (0-3) Basophils (%) (Auto) 1 % (0-3) Neutrophils # (Auto) 3.3 x10^3uL (1.8-7.7) Lymphocytes # (Auto) 0.6 x10^3/uL (1.0-4.8) L Monocytes # (Auto) 0.5 x10^3/uL (0.0-1.1) Eosinophils # (Auto) 0.1 x10^3/uL (0.0-0.7) Basophils # (Auto) 0.0 x10^3/uL (0.0-0.2) Sodium Level 141 mmol/L (136-145) Potassium Level 4.7 mmol/L (3.5-5.1) Chloride Level 108 mmol/L (98-107) H Carbon Dioxide Level 26 mmol/L (21-32) Anion Gap 7 (6-14) Blood Urea Nitrogen 26 mg/dL (8-26) Creatinine 1.1 mg/dL (0.7-1.3) Estimated GFR (Cockcroft-Gault) 64.1 BUN/Creatinine Ratio 24 (6-20) H Glucose Level 87 mg/dL (70-99) Calcium Level 8.7 mg/dL (8.5-10.1) Total Bilirubin 0.4 mg/dL (0.2-1.0) Aspartate Amino Transferase (AST) 18 U/L (15-37) Alanine Aminotransferase (ALT) 11 U/L (16-63) L Alkaline Phosphatase 50 U/L (46-116) Total Protein 6.1 g/dL (6.4-8.2) L Albumin 2.3 g/dL (3.4-5.0) L Albumin/Globulin Ratio 0.6 (1.0-1.7) L Current Medications: Meds: Current Medications Medications (Trade) Dose Ordered Sig/Lit Route PRN Reason Start Time Stop Time Status Last Admin Dose Admin Risperidone (RisperDAL) 0.5 mg HS PO 07/05/20 21:00 07/05/20 20:39 I have reviewed the current psychotropics carefully including drug interactions. Risk benefit ratio favors no change other than as noted in my dictated progress note. Diagnosis: Problems: (1) Impulse control disorder, unspecified (2) Anxiety disorder, unspecified (3) Dementia, vascular, with depression (4) Dementia, vascular, with delusions (5) Major neurocognitive disorder (6) Major neurocognitive disorder, due to vascular disease, with behavioral disturbance, mild TL SAMUEL MD Jul 05, 2020 22:30
--- NOTE | 2020-07-05 22:33 | PDOC ---
Exam Note: Taurus Note: Subjective: The patient was reviewed on telehealth rounds due to COVID-19 restrictions on the unit in the evening of 07/05/2020 with Meaghan MOREL. Discussed with nursing staff, reviewed the chart. He has been often refusing medications somewhat paranoid, suspicious. Oral intake is poor. Given his psychotic symptoms, we will change the Seroquel to Risperdal to 0.25 mg a.m. and 0.5 mg h.s. Review of Systems: Ambulation impaired. No CV, , pulmonary, eye system symptoms on review. Mental Status Exam: Oriented to himself. Speech has some latency. Insight and judgment, recent and remote memory, attention and concentration, fund of knowledge consistent with his diagnoses. Laboratory Data: Reviewed. 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 Anxiety disorder unspecified. Plan: Given his psychotic symptoms, we will change the Seroquel to Risperdal to 0.25 mg a.m. and 0.5 mg h.s. Assessment: Vital Signs/I&O: Vital Signs Date Time Temp Pulse Resp B/P (MAP) Pulse Ox O2 Delivery O2 Flow Rate FiO2 07/05/20 20:20 67 101/66 07/05/20 19:42 97.9 96 07/05/20 15:20 17 Room Air I & O 07/04/20 07/04/20 07/05/20 15:00 23:00 07:00 Intake Total 600 ml 360 ml 125 ml Balance 600 ml 360 ml 125 ml Labs: Laboratory Tests Test 07/05/20 06:40 White Blood Count 4.5 x10^3/uL (4.0-11.0) Red Blood Count 2.71 x10^6/uL (4.30-5.70) L Hemoglobin 8.9 g/dL (13.0-17.5) L Hematocrit 26.3 % (39.0-53.0) L Mean Corpuscular Volume 97 fL (79-100) Mean Corpuscular Hemoglobin 33 pg (25-35) Mean Corpuscular Hemoglobin Concent 34 g/dL (31-37) Red Cell Distribution Width 14.8 % (11.5-14.5) H Platelet Count 162 x10^3/uL (140-400) Neutrophils (%) (Auto) 73 % (31-73) Lymphocytes (%) (Auto) 13 % (24-48) L Monocytes (%) (Auto) 11 % (0-9) H Eosinophils (%) (Auto) 3 % (0-3) Basophils (%) (Auto) 1 % (0-3) Neutrophils # (Auto) 3.3 x10^3uL (1.8-7.7) Lymphocytes # (Auto) 0.6 x10^3/uL (1.0-4.8) L Monocytes # (Auto) 0.5 x10^3/uL (0.0-1.1) Eosinophils # (Auto) 0.1 x10^3/uL (0.0-0.7) Basophils # (Auto) 0.0 x10^3/uL (0.0-0.2) Sodium Level 141 mmol/L (136-145) Potassium Level 4.7 mmol/L (3.5-5.1) Chloride Level 108 mmol/L (98-107) H Carbon Dioxide Level 26 mmol/L (21-32) Anion Gap 7 (6-14) Blood Urea Nitrogen 26 mg/dL (8-26) Creatinine 1.1 mg/dL (0.7-1.3) Estimated GFR (Cockcroft-Gault) 64.1 BUN/Creatinine Ratio 24 (6-20) H Glucose Level 87 mg/dL (70-99) Calcium Level 8.7 mg/dL (8.5-10.1) Total Bilirubin 0.4 mg/dL (0.2-1.0) Aspartate Amino Transferase (AST) 18 U/L (15-37) Alanine Aminotransferase (ALT) 11 U/L (16-63) L Alkaline Phosphatase 50 U/L (46-116) Total Protein 6.1 g/dL (6.4-8.2) L Albumin 2.3 g/dL (3.4-5.0) L Albumin/Globulin Ratio 0.6 (1.0-1.7) L Current Medications: Meds: Current Medications Medications (Trade) Dose Ordered Sig/Lit Route PRN Reason Start Time Stop Time Status Last Admin Dose Admin Risperidone (RisperDAL) 0.5 mg HS PO 07/05/20 21:00 07/05/20 20:39 I have reviewed the current psychotropics carefully including drug interactions. Risk benefit ratio favors no change other than as noted in my dictated progress note. Diagnosis: Problems: (1) Impulse control disorder, unspecified (2) Anxiety disorder, unspecified (3) Dementia, vascular, with depression (4) Dementia, vascular, with delusions (5) Major neurocognitive disorder (6) Major neurocognitive disorder, due to vascular disease, with behavioral disturbance, mild TL SAMUEL MD Jul 05, 2020 22:33
[2020-07-06 06:19] VITALS: BP 145/82
[2020-07-06] MEDS: LOSARTAN 50 MG TABLET. PO SCH (08:58)
[2020-07-06] MEDS: FOLIC ACID 1 MG TABLET PO SCH (08:58)
[2020-07-06] MEDS: METOPROLOL TART IMMED RELEASE 50 MG TABLET PO SCH ×2 (08:58→19:48)
[2020-07-06] MEDS: THIAMINE 100 MG TABLET. PO SCH (08:58)
[2020-07-06] MEDS: LACTOBACILLUS RHAMNOSUS GG 1 CAPSULE. PO SCH ×2 (08:58→19:47)
[2020-07-06] MEDS: MAGNESIUM OXIDE 400 MG TABLET PO SCH ×3 (08:58→19:47)
[2020-07-06] MEDS: VALPROATE ACID 250 MG/5 ML ORAL SOLUTION PO SCH ×2 (08:59→16:31)
[2020-07-06] MEDS: risperiDONE 0.25 MG TABLET. PO SCH (09:01)
[2020-07-06] MEDS: POTASSIUM BICARB 20 MEQ EFFERVESCENT TABLET. PO SCH ×2 (09:21→19:49)
--- NOTE | 2020-07-06 10:52 | TX PLAN ---
Interdisciplinary Tx Plan Admission Information May 27, 2020 at 22:24 Legal Status (on Admission): Voluntary DPOA/Guardian Name: Sara Arnold Contact Other Contact Name: [facility] Verified Code Status: DNR Allergies: Coded Allergies: No Known Drug Allergies (Unverified , 05/27/20) Diagnoses Primary Diagnosis: Dementia with BD Reasons for Admission: Agitated, Confusion/Disoriented Problem in Patient's Words: He has noticeably been decreasing in cognition and physical health over the last 6-8 months. Additional Admission Comments: The intake reports that pt is confused and agitated; but no other behaviors or scenarios noted. Problems Active Problems: Agitated Confusion Paranoid Inactive Problems: Mostly medication compliant Pt Strengths/Limitations Ability for [place]: Poor Cognitive Functioning/Ability: Poor Communication Skills/Ability: Fair Financial Resources: Fair Insight/Judgement: Poor Intellectual Ability: Fair Physical Health: Poor Social Skills: Fair Stability in Family: Good Stability in School/Work: Poor Verbal Skills: Fair Discharge Criteria Discharge Criteria: No need for close observ., Adequate arrangements @DC, Improved behavior, Improved mood/thought Preliminary Discharge Plan Preliminary DC Plan: Placement Needed Special Precautions Fall Risk: Moderate Initial D/C Plan Pt will need a higher level of care; not able to return to [facility] Identified Discharge Needs: Referrals to higher level of care Currently Utilized Resources Currently Utilized Resources/P: Primary Care Physician Referrals Community Resources: Referrals to [facility]/Memory Care facilities Identified Problems/Hx/Goals Objectives/Short-Term Goals Short Term Goals: Dec. Outbursts, Medication Stabilization, Monitor Med Effects, Promote Coping Skill, Other Short Term Goals in Patient's: N/A Interventions/Frequency Staff Interventions/Frequency&: Psychiatrist to assess pt at least 3x per week. Social Work to assess pt at least 2x per week. Nursing to monitor behavior, medications and complete 15 minute checks daily Encourage group participation in activities or 1:1 engagement based off activity dept assessment. 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 He lastly retired from [employer] in [place], [place]. Education: Masters in Education Community Follow-up Continue to follow-up with PCP Community Provider/Family Inpu: I just need help in finding him an appropriate place to go. He wants to go home but I just do not think it is safe right now. 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 Pt continues to refuse his showers and at times medications. Pt needs them crushed and hidden in food otherwise he will not take them. Pt does appears to have a decrease in RBC and will need a consult to see a make up editor at discharge. Referrals needs to be sent out for placement as pt previous facility was not able to accept pt back. TAMMIE DEY Jul 06, 2020 10:52
[2020-07-06] MEDS: [UNRECOGNIZED DRUG - OTHER] PO SCH (11:56)
[2020-07-06] MEDS: MULTIVITAMIN PO SCH (11:56)
[2020-07-06] MEDS: NYSTATIN 100,000 UNIT/GM TOPICAL CREAM 15GM TUBE. TP SCH ×2 (11:57→19:49)
--- NOTE | 2020-07-06 15:47 | NUR ---
Patient has been up and out of his room most of the afternoon. He has been using his walker to ambulate and sitting in chairs in the hallway. Patient is not keeping his mask on. At one point he attempted to use the bedside table as a ambulatory aid. Staff was able to redirect patient and switch the table for his walker. At this time patient is delusional and smacking his walker into the wall in the hallway. He appears upset and stated his girlfriend is in that room (soiled utility) and the thugs are coming. Nurse has verbally redirected patient multiple and reassured him that no one was in that room and that the thugs cannot get in because the door is locked. APOORVA is taking patient to his room to relax. Patient is saying 19 and 13, write that down repeatedly. Nurse wrote the numbers on a paper and gave to the patient. Patient is argumentative and is not making sense when he talks and asks questions then says off topic things when staff answer his questions. Patient is again talking about "Sara" and thinks STEREO EQUIPMENT INSTALLER is a man. Patient is calmly talking to STEREO EQUIPMENT INSTALLER but is very disorganized and not making sense. Patient does not seem to realize that he doesn't make sense when he talks.
[2020-07-06 16:14] VITALS: BP 135/80
[2020-07-06 16:20] VITALS: BP 145/72
--- NOTE | 2020-07-06 16:31 | NUR ---
Patient has returned voluntarily to [facility] and is delusional stating that the men here that are cleaning the ac/heater blowers are here to "steal the signs". When nurse asked him which signs, he pointed at the exit sign and the clock. Nurse showed patient the security camera in the corner and told him we are watching the working men and video taping them. That satisfied him briefly. He is sitting on a chair across from [facility], every few minutes he yells something nonsensical. PRN zyprexa given per order for psychosis. Will continue to monitor.
[2020-07-06] MEDS: MELATONIN 3 MG TABLET PO SCH (19:47)
[2020-07-06] MEDS: traZODone 50 MG TABLET. PO SCH (19:47)
[2020-07-06] MEDS: MIRTAZAPINE 7.5 MG TABLET. PO SCH (19:47)
[2020-07-06] MEDS: risperiDONE 0.5 MG TABLET. PO SCH (19:48)
--- NOTE | 2020-07-06 20:37 | NUR ---
Nursing Note Pt up in private hallway, walking around and talking to himself AND answering himself in a different voice. 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 Redirectable at this time, cooperative.
[2020-07-06] MEDS: traZODone 50 MG TABLET. PO PRN (21:05)
--- NOTE | 2020-07-06 21:46 | PDOC ---
Exam Note: Taurus Note: Please also refer to the separate dictated note~for this date of service dictated separately.~Patient seen individually. Discussed the patient with Nursing staff reviewed the chart.~Reviewed interim history and current functioning. Reviewed vital signs,~Labs/ Radiology~and current medications noted below. Continue current treatment with the changes noted in the dictated addendum note Assessment: Vital Signs/I&O: Vital Signs Date Time Temp Pulse Resp B/P (MAP) Pulse Ox O2 Delivery O2 Flow Rate FiO2 07/06/20 19:48 65 145/72 07/06/20 16:20 97.2 20 95 07/05/20 15:20 Room Air I & O 07/05/20 07/05/20 07/06/20 14:59 22:59 06:59 Intake Total 480 ml 676 ml Balance 480 ml 676 ml Current Medications: Meds: Current Medications Medications (Trade) Dose Ordered Sig/Lit Route PRN Reason Start Time Stop Time Status Last Admin Dose Admin Risperidone (RisperDAL) 0.25 mg DAILY PO 07/06/20 09:00 07/06/20 09:01 I have reviewed the current psychotropics carefully including drug interactions. Risk benefit ratio favors no change other than as noted in my dictated progress note. Diagnosis: Problems: (1) Impulse control disorder, unspecified (2) Anxiety disorder, unspecified (3) Dementia, vascular, with depression (4) Dementia, vascular, with delusions (5) Major neurocognitive disorder (6) Major neurocognitive disorder, due to vascular disease, with behavioral disturbance, mild TL SAMUEL MD Jul 06, 2020 21:46
--- NOTE | 2020-07-06 23:19 | PDOC ---
Exam Note: Taurus Note: Subjective: The patient was reviewed on telehealth rounds due to COVID-19 restrictions on the unit, for treatment team meeting in the morning of 07/06/2020 with Kerry (social insurance administrator) Meaghan MOREL and myself. The patient was also seen on telehealth rounds in the evening of 07/06/2020. Discussed with nursing staff, reviewed the chart. Overall the patient becomes agitated at times, yelling out for Sara but redirects. Appetite remains poor. He is still paranoid. He has been ambulating up and down the hallway. Review of Systems: Ambulation impaired. No CV, , pulmonary, eye system symptoms on review. Mental Status Exam: Oriented to himself. Insight and judgment, recent and remote memory, attention and concentration, fund of knowledge is poor consistent with his diagnoses. Laboratory Data: Reviewed. 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 Anxiety disorder unspecified. Plan: No change from initial note. The patients Seroquel was changed to Risperdal. We will increase and adjust this as clinically indicated. Rest unchanged for now. Assessment: Vital Signs/I&O: Vital Signs Date Time Temp Pulse Resp B/P (MAP) Pulse Ox O2 Delivery O2 Flow Rate FiO2 07/06/20 19:48 65 145/72 07/06/20 16:20 97.2 20 95 07/05/20 15:20 Room Air I & O 07/05/20 07/05/20 07/06/20 15:00 23:00 07:00 Intake Total 480 ml 676 ml Balance 480 ml 676 ml Current Medications: Meds: Current Medications Medications (Trade) Dose Ordered Sig/Lit Route PRN Reason Start Time Stop Time Status Last Admin Dose Admin Risperidone (RisperDAL) 0.25 mg DAILY PO 07/06/20 09:00 07/06/20 09:01 I have reviewed the current psychotropics carefully including drug interactions. Risk benefit ratio favors no change other than as noted in my dictated progress note. Diagnosis: Problems: (1) Impulse control disorder, unspecified (2) Anxiety disorder, unspecified (3) Dementia, vascular, with depression (4) Dementia, vascular, with delusions (5) Major neurocognitive disorder (6) Major neurocognitive disorder, due to vascular disease, with behavioral disturbance, mild JIMMIE,TL Pratt MD Jul 06, 2020 23:18
[2020-07-07 06:30] VITALS: BP 116/66
[2020-07-07] MEDS: NYSTATIN 100,000 UNIT/GM TOPICAL CREAM 15GM TUBE. TP SCH ×2 (07:37→19:37)
[2020-07-07] MEDS: THIAMINE 100 MG TABLET. PO SCH (07:38)
[2020-07-07] MEDS: LACTOBACILLUS RHAMNOSUS GG 1 CAPSULE. PO SCH ×2 (07:38→19:37)
[2020-07-07] MEDS: METOPROLOL TART IMMED RELEASE 50 MG TABLET PO SCH ×2 (07:38→19:37)
[2020-07-07] MEDS: risperiDONE 0.25 MG TABLET. PO SCH (07:38)
[2020-07-07] MEDS: VALPROATE ACID 250 MG/5 ML ORAL SOLUTION PO SCH ×2 (07:38→16:41)
[2020-07-07] MEDS: MAGNESIUM OXIDE 400 MG TABLET PO SCH ×3 (07:38→19:36)
[2020-07-07] MEDS: LOSARTAN 50 MG TABLET. PO SCH (07:39)
[2020-07-07] MEDS: FOLIC ACID 1 MG TABLET PO SCH (07:39)
[2020-07-07] MEDS: MULTIVITAMIN PO SCH (07:40)
[2020-07-07] MEDS: [UNRECOGNIZED DRUG - OTHER] PO SCH (07:40)
[2020-07-07] MEDS: POTASSIUM CHLORIDE 20 MEQ TABLET.ER. PO SCH ×2 (08:02→19:37)
[2020-07-07 15:13] VITALS: BP 116/61
--- NOTE | 2020-07-07 16:41 | NUR ---
Pt sat in in bed and ate 1/2 his breakfast and took meds in boost. Has been dozing most of day. Got up for shower in afternoon without resistance. Tolerated well. Up at bedside eating a snack.
[2020-07-07] MEDS: MIRTAZAPINE 7.5 MG TABLET. PO SCH (19:36)
[2020-07-07] MEDS: MELATONIN 3 MG TABLET PO SCH (19:37)
[2020-07-07] MEDS: traZODone 50 MG TABLET. PO SCH (19:37)
[2020-07-07] MEDS: risperiDONE 0.5 MG TABLET. PO SCH (19:37)
--- NOTE | 2020-07-07 20:33 | NUR ---
Nursing Note: Pt withdrawn to room, lying in bed at shift change. Pt alert, confused, and disorganized. No agitation or aggression noted when approached. Pt singing or yelling out at times but has been easily re-directed thus far this shift. Pt cooperative with assessment and compliant with medications administered crushed in ice cream.
--- NOTE | 2020-07-07 22:00 | PDOC ---
Exam Note: Taurus Note: Please also refer to the separate dictated note~for this date of service dictated separately.~Patient seen individually. Discussed the patient with Nursing staff reviewed the chart.~Reviewed interim history and current functioning. Reviewed vital signs,~Labs/ Radiology~and current medications noted below. Continue current treatment with the changes noted in the dictated addendum note Assessment: Vital Signs/I&O: Vital Signs Date Time Temp Pulse Resp B/P (MAP) Pulse Ox O2 Delivery O2 Flow Rate FiO2 07/07/20 19:37 69 120/67 07/07/20 15:13 97.8 17 97 Room Air I & O 07/06/20 07/06/20 07/07/20 15:00 23:00 07:00 Intake Total 600 ml 220 ml Output Total 0 ml Balance 600 ml 220 ml Current Medications: Meds: Current Medications Medications (Trade) Dose Ordered Sig/Lit Route PRN Reason Start Time Stop Time Status Last Admin Dose Admin Potassium Chloride (Klor-Con) 20 meq BID PO 07/07/20 09:00 07/07/20 19:37 I have reviewed the current psychotropics carefully including drug interactions. Risk benefit ratio favors no change other than as noted in my dictated progress note. Diagnosis: Problems: (1) Major neurocognitive disorder, due to vascular disease, with behavioral disturbance, mild (2) Dementia, vascular, with delusions (3) Dementia, vascular, with depression (4) Anxiety disorder, unspecified (5) Impulse control disorder, unspecified (6) Major neurocognitive disorder TL SAMUEL MD Jul 07, 2020 22:00
--- NOTE | 2020-07-08 02:44 | NUR ---
Pt restless and disorganized, resistive with cares and toileting at this time. Attempting to strike staff with re-direction. Staff x2 assist to get pt to bathroom where he was changed and myrtle care performed.
[2020-07-08 05:37] VITALS: BP 143/75
[2020-07-08] MEDS: VALPROATE ACID 250 MG/5 ML ORAL SOLUTION PO SCH ×2 (08:10→17:05)
[2020-07-08] MEDS: MULTIVITAMIN PO SCH (08:11)
[2020-07-08] MEDS: [UNRECOGNIZED DRUG - OTHER] PO SCH (08:11)
[2020-07-08] MEDS: LOSARTAN 50 MG TABLET. PO SCH (08:13)
[2020-07-08] MEDS: LACTOBACILLUS RHAMNOSUS GG 1 CAPSULE. PO SCH ×2 (08:13→19:40)
[2020-07-08] MEDS: POTASSIUM CHLORIDE 20 MEQ TABLET.ER. PO SCH ×2 (08:13→19:42)
[2020-07-08] MEDS: FOLIC ACID 1 MG TABLET PO SCH (08:13)
[2020-07-08] MEDS: risperiDONE 0.25 MG TABLET. PO SCH (08:14)
[2020-07-08] MEDS: METOPROLOL TART IMMED RELEASE 50 MG TABLET PO SCH ×2 (08:14→19:40)
[2020-07-08] MEDS: MAGNESIUM OXIDE 400 MG TABLET PO SCH ×3 (08:14→19:41)
[2020-07-08] MEDS: THIAMINE 100 MG TABLET. PO SCH (08:14)
[2020-07-08] MEDS: NYSTATIN 100,000 UNIT/GM TOPICAL CREAM 15GM TUBE. TP SCH ×2 (09:00→19:41)
--- NOTE | 2020-07-08 09:03 | NUR ---
Pt is calm, cooperative, confused, and compliant. No agitation, no aggression, no hallucinations, no delusions. He is compliant with his medication and assessment.
--- NOTE | 2020-07-08 10:07 | NUR ---
Pt came out of his room and asked for a snack. Pt stated multiple times "where is your homework sandwich?" Staff redirected with a snack.
--- NOTE | 2020-07-08 15:07 | NUR ---
Pt was ramming his walker into the dayroom door. When approached by staff pt stated "I need to get in there!" Pt was not able to form complete thoughts. ICE CREAM MIXER redirected pt back to his room, pt raised his fist at ICE CREAM MIXER and yelled at her. JOYCE jones given.
[2020-07-08 17:14] VITALS: BP 146/84
--- NOTE | 2020-07-08 17:19 | NUR ---
Pt had a good morning today. In the afternoon he engaged with staff while watching a college football game. However, as the day went on he became more irritable, delusional (calling out for a baby, looking for kids.), and resistive with cares. During rounds Dr. Hauser increased 1700 dose of depakote from 500mg to 750mg labs on july 13
[2020-07-08] MEDS: risperiDONE 0.5 MG TABLET. PO SCH (19:41)
[2020-07-08] MEDS: traZODone 50 MG TABLET. PO SCH (19:41)
[2020-07-08] MEDS: MIRTAZAPINE 7.5 MG TABLET. PO SCH (19:42)
[2020-07-08] MEDS: MELATONIN 3 MG TABLET PO SCH (19:42)
--- NOTE | 2020-07-08 21:46 | PDOC ---
Exam Note: Taurus Note: Please also refer to the separate dictated note~for this date of service dictated separately.~Patient seen individually. Discussed the patient with Nursing staff reviewed the chart.~Reviewed interim history and current functioning. Reviewed vital signs,~Labs/ Radiology~and current medications noted below. Continue current treatment with the changes noted in the dictated addendum note Assessment: Vital Signs/I&O: Vital Signs Date Time Temp Pulse Resp B/P (MAP) Pulse Ox O2 Delivery O2 Flow Rate FiO2 07/08/20 19:40 70 146/84 07/08/20 19:39 98.0 100 Room Air 07/08/20 17:14 18 I & O 07/07/20 07/07/20 07/08/20 15:00 23:00 07:00 Intake Total 237 ml 536 ml Balance 237 ml 536 ml Current Medications: I have reviewed the current psychotropics carefully including drug interactions. Risk benefit ratio favors no change other than as noted in my dictated progress note. Diagnosis: Problems: (1) Impulse control disorder, unspecified (2) Anxiety disorder, unspecified (3) Dementia, vascular, with depression (4) Dementia, vascular, with delusions (5) Major neurocognitive disorder (6) Major neurocognitive disorder, due to vascular disease, with behavioral disturbance, mild TL SAMUEL MD Jul 08, 2020 21:46
--- NOTE | 2020-07-08 23:59 | NUR ---
Patient is in his room on assumption of care. He is disorganized, confused, delusional. Rambling on, stating "100, 200, get the doweler in here." During HS cares, patient was resistive and put his legs up as if to kick staff. Stated "What do these guys even want?" while gesturing at the wall. He was redirectable and staff was able to change him without further issue. Medications were given crushed and mixed in orange juice, which patient consumed without difficulty. He remains awake in his room at present time, continuing to ramble intermittently. Will continue to monitor.
[2020-07-09 06:32] VITALS: BP 149/70
[2020-07-09] MEDS: MAGNESIUM OXIDE 400 MG TABLET PO SCH ×3 (08:25→19:27)
[2020-07-09] MEDS: METOPROLOL TART IMMED RELEASE 50 MG TABLET PO SCH ×2 (08:25→19:27)
[2020-07-09] MEDS: LACTOBACILLUS RHAMNOSUS GG 1 CAPSULE. PO SCH ×2 (08:25→19:25)
[2020-07-09] MEDS: FOLIC ACID 1 MG TABLET PO SCH (08:25)
[2020-07-09] MEDS: risperiDONE 0.25 MG TABLET. PO SCH (08:25)
[2020-07-09] MEDS: THIAMINE 100 MG TABLET. PO SCH (08:25)
[2020-07-09] MEDS: NYSTATIN 100,000 UNIT/GM TOPICAL CREAM 15GM TUBE. TP SCH ×2 (08:26→19:29)
[2020-07-09] MEDS: POTASSIUM CHLORIDE 20 MEQ TABLET.ER. PO SCH ×2 (08:26→19:29)
[2020-07-09] MEDS: LOSARTAN 50 MG TABLET. PO SCH (08:26)
[2020-07-09] MEDS: [UNRECOGNIZED DRUG - OTHER] PO SCH (08:34)
[2020-07-09] MEDS: MULTIVITAMIN PO SCH (08:34)
[2020-07-09] MEDS: VALPROATE ACID 250 MG/5 ML ORAL SOLUTION PO SCH (08:40)
--- NOTE | 2020-07-09 16:04 | NUR ---
Pt has been intermittently restless and irritable. Redirected several times to put on mask when out in halls. Has threatened to hit staff but did not follow thru. Prns utilized. Pt up for shower in afternoon. Tolerated well.
[2020-07-09 16:47] VITALS: BP 127/71
[2020-07-09] MEDS ORDERED: VALPROATE ACID 250 MG/5 ML ORAL SOLUTION PO SCH ×2 (17:00→21:00)
[2020-07-09] MEDS: MELATONIN 3 MG TABLET PO SCH (19:24)
[2020-07-09] MEDS: traZODone 50 MG TABLET. PO SCH (19:26)
[2020-07-09] MEDS: MIRTAZAPINE 7.5 MG TABLET. PO SCH (19:26)
[2020-07-09] MEDS: risperiDONE 0.5 MG TABLET. PO SCH (19:27)
--- NOTE | 2020-07-09 22:03 | PDOC ---
Exam Note: Taurus Note: Please also refer to the separate dictated note~for this date of service dictated separately.~Patient seen individually. Discussed the patient with Nursing staff reviewed the chart.~Reviewed interim history and current functioning. Reviewed vital signs,~Labs/ Radiology~and current medications noted below. Continue current treatment with the changes noted in the dictated addendum note Assessment: Vital Signs/I&O: Vital Signs Date Time Temp Pulse Resp B/P (MAP) Pulse Ox O2 Delivery O2 Flow Rate FiO2 07/09/20 19:27 72 127/71 07/09/20 16:47 98.1 18 100 07/09/20 06:32 Room Air I & O 07/08/20 07/08/20 07/09/20 14:59 22:59 06:59 Intake Total 920 ml 900 ml Balance 920 ml 900 ml Current Medications: Meds: Current Medications Medications (Trade) Dose Ordered Sig/Lit Route PRN Reason Start Time Stop Time Status Last Admin Dose Admin Valproic Acid (Depakene) 500 mg DAILY PO 07/09/20 09:00 07/09/20 08:40 Valproic Acid (Depakene) 750 mg HS PO 07/09/20 21:00 07/09/20 20:22 DC 07/09/20 19:26 I have reviewed the current psychotropics carefully including drug interactions. Risk benefit ratio favors no change other than as noted in my dictated progress note. Diagnosis: Problems: (1) Impulse control disorder, unspecified (2) Anxiety disorder, unspecified (3) Dementia, vascular, with depression (4) Dementia, vascular, with delusions (5) Major neurocognitive disorder (6) Major neurocognitive disorder, due to vascular disease, with behavioral disturbance, mild TL SAMUEL MD Jul 09, 2020 22:03
--- NOTE | 2020-07-09 23:05 | PDOC ---
Exam Note: Taurus Note: This note is a late entry for 07/07/2020 covers elements not covered in my initial note. Subjective: The patient was reviewed on telehealth rounds in the evening of 07/07/2020 due to COVID-19 restrictions on the unit with nursing staff. Discussed with nursing staff, reviewed the chart. Overall the patient remains confused, intermittently agitated, had to be in the West hallway. Review of Systems: Ambulation impaired. No CV, , pulmonary, eye system symptoms on review. Mental Status Exam: Oriented to himself. Insight and judgment, recent and remote memory, attention and concentration, fund of knowledge is poor consistent with his diagnoses. Laboratory Data: Reviewed. 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 Anxiety disorder unspecified. Plan: Continue the patient on his current psychotropics. We may need to adjust Depakene for his behavioral dyscontrol since the valproic acid level is subtherapeutic at 45. We have also changed the Seroquel to Risperdal. We will make further adjustments as clinically indicated. He remains somewhat paranoid. Assessment: Vital Signs/I&O: Vital Signs Date Time Temp Pulse Resp B/P (MAP) Pulse Ox O2 Delivery O2 Flow Rate FiO2 07/09/20 19:27 72 127/71 07/09/20 16:47 98.1 18 100 07/09/20 06:32 Room Air I & O 07/08/20 07/08/20 07/09/20 14:59 22:59 06:59 Intake Total 920 ml 900 ml Balance 920 ml 900 ml Current Medications: Meds: Current Medications Medications (Trade) Dose Ordered Sig/Lit Route PRN Reason Start Time Stop Time Status Last Admin Dose Admin Valproic Acid (Depakene) 500 mg DAILY PO 07/09/20 09:00 07/09/20 08:40 Valproic Acid (Depakene) 750 mg HS PO 07/09/20 21:00 07/09/20 20:22 DC 07/09/20 19:26 I have reviewed the current psychotropics carefully including drug interactions. Risk benefit ratio favors no change other than as noted in my dictated progress note. Diagnosis: Problems: (1) Impulse control disorder, unspecified (2) Anxiety disorder, unspecified (3) Dementia, vascular, with depression (4) Dementia, vascular, with delusions (5) Major neurocognitive disorder (6) Major neurocognitive disorder, due to vascular disease, with behavioral disturbance, mild (7) History of alcohol dependence TL SAMUEL MD Jul 09, 2020 23:05
--- NOTE | 2020-07-09 23:07 | PDOC ---
Exam Note: Taurus Note: This note is a late entry for 07/08/2020 covers elements not covered in my initial note. Subjective: The patient was reviewed on telehealth rounds in the evening of 07/08/2020 due to COVID-19 restrictions on the unit with Wendy MOREL. Discussed with nursing staff, reviewed the chart. Overall the patient remains paranoid, suspicious at times, had to be in the West hallway, resistive to cares. Review of Systems: Ambulation impaired. No CV, , pulmonary, eye system symptoms on review. Reliability poor. He is somewhat dismissive as I met with him. Mental Status Exam: Oriented to himself. He is somewhat paranoid, suspicious at times Insight and judgment, recent and remote memory, attention and concentration, fund of knowledge is poor consistent with his diagnoses. No suicidal or homicidal ideation. Attention span is short. Laboratory Data: Reviewed. 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 Anxiety disorder unspecified. Plan: No change from initial note. We will go ahead and increase the Depakene from 500 mg b.i.d. with level of 45 up to 500 mg a.m. and 750 mg h.s. Check CBC, CMP, valproic acid level in 3 days. Continue rest of the psychotropics unchanged. Make further adjustments as clinically indicated. Assessment: Vital Signs/I&O: Vital Signs Date Time Temp Pulse Resp B/P (MAP) Pulse Ox O2 Delivery O2 Flow Rate FiO2 07/09/20 19:27 72 127/71 07/09/20 16:47 98.1 18 100 07/09/20 06:32 Room Air I & O 07/08/20 07/08/20 07/09/20 15:00 23:00 07:00 Intake Total 920 ml 900 ml Balance 920 ml 900 ml Current Medications: Meds: Current Medications Medications (Trade) Dose Ordered Sig/Lit Route PRN Reason Start Time Stop Time Status Last Admin Dose Admin Valproic Acid (Depakene) 500 mg DAILY PO 07/09/20 09:00 07/09/20 08:40 Valproic Acid (Depakene) 750 mg HS PO 07/09/20 21:00 07/09/20 20:22 DC 07/09/20 19:26 I have reviewed the current psychotropics carefully including drug interactions. Risk benefit ratio favors no change other than as noted in my dictated progress note. Diagnosis: Problems: (1) Impulse control disorder, unspecified (2) Anxiety disorder, unspecified (3) Dementia, vascular, with depression (4) Dementia, vascular, with delusions (5) Major neurocognitive disorder (6) Major neurocognitive disorder, due to vascular disease, with behavioral disturbance, mild (7) History of alcohol dependence TL SAMUEL MD Jul 09, 2020 23:07
--- NOTE | 2020-07-09 23:11 | PDOC ---
Exam Note: Taurus Note: This note covers elements not covered in my initial note. Subjective: The patient was reviewed on telehealth rounds in the evening of 07/09/2020 due to COVID-19 restrictions on the unit with Teresa MOREL. Discussed with nursing staff, reviewed the chart. The patient slept 3-1/4 hours previous night. He remains somewhat irritable, dismissive, confused. Review of Systems: Ambulation impaired with walker. No CV, , pulmonary, eye system symptoms on review. Mental Status Exam: Oriented to himself. He is somewhat abrasive verbally but not physically aggressive. He remains confused. Insight and judgment, recent and remote memory, attention and concentration, fund of knowledge is poor consistent with his diagnoses. No suicidal or homicidal ideation. Laboratory Data: Reviewed. 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 Anxiety disorder unspecified. Plan: We have increased the patients valproic acid and we will repeat labs level, adjust to reach therapeutic level. Rest unchanged. Assessment: Vital Signs/I&O: Vital Signs Date Time Temp Pulse Resp B/P (MAP) Pulse Ox O2 Delivery O2 Flow Rate FiO2 07/09/20 19:27 72 127/71 07/09/20 16:47 98.1 18 100 07/09/20 06:32 Room Air I & O 07/08/20 07/08/20 07/09/20 14:59 22:59 06:59 Intake Total 920 ml 900 ml Balance 920 ml 900 ml Current Medications: Meds: Current Medications Medications (Trade) Dose Ordered Sig/Lit Route PRN Reason Start Time Stop Time Status Last Admin Dose Admin Valproic Acid (Depakene) 500 mg DAILY PO 07/09/20 09:00 07/09/20 08:40 Valproic Acid (Depakene) 750 mg HS PO 07/09/20 21:00 07/09/20 20:22 DC 07/09/20 19:26 I have reviewed the current psychotropics carefully including drug interactions. Risk benefit ratio favors no change other than as noted in my dictated progress note. Diagnosis: Problems: (1) Impulse control disorder, unspecified (2) Anxiety disorder, unspecified (3) Dementia, vascular, with depression (4) Dementia, vascular, with delusions (5) Major neurocognitive disorder (6) Major neurocognitive disorder, due to vascular disease, with behavioral disturbance, mild (7) History of alcohol dependence TL SAMUEL MD Jul 09, 2020 23:11
--- NOTE | 2020-07-09 23:59 | NUR ---
Patient is wandering the hallway on assumption of care. He is rambling to himself. Seems in good spirits, not as irritable as baseline. Medications given crushed and mixed with strawberry Boost. During HS care, patient did become irritable and gesturing as if to hit staff, but he did not follow through. Redirected and assisted into bed. Appears to be sleeping comfortably at present time. Will continue to monitor.
[2020-07-10 06:37] VITALS: BP 170/92
--- NOTE | 2020-07-10 06:39 | NUR ---
During morning cares, patient had been incontinent of a large amount of urine. He was extremely cooperative and pleasant with being changed. This nurse was able to perform care alone, patient followed instructions well. No irritability was noted. Patient is awake in bed at present time.
[2020-07-10 07:24] LABS: BASO % 1 % (0-3); EOS # 0.1 x10^3/uL (0.0-0.7); EOS % 3 % (0-3); HEMATOCRIT 23.9 % (39.0-53.0); LYMPH # 0.5 x10^3/uL (1.0-4.8); LYMPH % 16 % (24-48); MEAN CORPUSCULAR HEMOGLOBIN 33 pg (25-35); MEAN CORPUSCULAR HGB CONC 33 g/dL (31-37); MEAN CORPUSCULAR VOLUME 99 fL (79-100); MONO # 0.3 x10^3/uL (0.0-1.1); MONO % 11 % (0-9); NEUT # 2.1 x10^3uL (1.8-7.7); NEUT % 69 % (31-73); PLATELET COUNT 115 x10^3/uL (140-400); RED BLOOD COUNT 2.41 x10^6/uL (4.30-5.70); RED CELL DISTRIBUTION WIDTH 15.4 % (11.5-14.5)
[2020-07-10 07:46] LABS: ALBUMIN 2.2 g/dL (3.4-5.0); ALBUMIN/GLOBULIN RATIO 0.6 (1.0-1.7); CALCIUM 8.3 mg/dL (8.5-10.1); GFR 71.5; POTASSIUM 4.3 mmol/L (3.5-5.1); TOTAL BILIRUBIN 0.4 mg/dL (0.2-1.0); TOTAL PROTEIN 5.8 g/dL (6.4-8.2)
[2020-07-10] MEDS: METOPROLOL TART IMMED RELEASE 50 MG TABLET PO SCH ×2 (09:00→19:39)
[2020-07-10] MEDS: LOSARTAN 50 MG TABLET. PO SCH (09:00)
[2020-07-10] MEDS: POTASSIUM CHLORIDE 20 MEQ TABLET.ER. PO SCH ×2 (09:00→19:40)
[2020-07-10] MEDS: LACTOBACILLUS RHAMNOSUS GG 1 CAPSULE. PO SCH ×2 (09:00→19:41)
[2020-07-10] MEDS: THIAMINE 100 MG TABLET. PO SCH (09:00)
[2020-07-10] MEDS: risperiDONE 0.25 MG TABLET. PO SCH (09:00)
[2020-07-10] MEDS: VALPROATE ACID 250 MG/5 ML ORAL SOLUTION PO SCH ×2 (09:00→15:45)
[2020-07-10] MEDS: MAGNESIUM OXIDE 400 MG TABLET PO SCH ×3 (09:00→19:39)
[2020-07-10] MEDS: FOLIC ACID 1 MG TABLET PO SCH (09:00)
[2020-07-10] MEDS: MULTIVITAMIN PO SCH (09:00)
[2020-07-10] MEDS: [UNRECOGNIZED DRUG - OTHER] PO SCH (09:00)
[2020-07-10] MEDS: NYSTATIN 100,000 UNIT/GM TOPICAL CREAM 15GM TUBE. TP SCH ×2 (09:00→19:58)
[2020-07-10 10:30] VITALS: BP 131/67
--- NOTE | 2020-07-10 10:30 | NUR ---
Dr. Vega pagesneha to review pts labs. New order for COVID-19 swab, CXR, D-Dimer, and CRP all stat.
--- NOTE | 2020-07-10 11:33 | RAD ---
Single AP view of the chest. Comparison: None. Indication: Productive cough Findings: Patient is rotated on the image. 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 The heart is not enlarged. There is no pneumothorax or effusion. Findings suggest a possible retrocardiac airspace disease in left. Impression: 1. Findings suggest left retrocardiac airspace disease. This could be further evaluated with a PA and lateral view of the chest. Electronically signed by: Bart Alvarez MD (07/10/2020 11:30 AM) [id number]
--- NOTE | 2020-07-10 11:33 | NUR ---
Pt is sleeping but arousable. Pt yells out and can be resistive with cares but then goes back to sleep. Pt states his throat hurts, he has a productive cough, and he is not hungry. Nurse offered pt water which is took a drink of. Will follow up with Dr. Vega regarding labs.
[2020-07-10] MEDS ORDERED: POTA20TA4 PO (11:48)
[2020-07-10] MEDS ORDERED: RISP0.5T24 PO ×2 (11:51→11:52)
[2020-07-10] MEDS ORDERED: VALP500S PO ×2 (12:12→12:13)
--- NOTE | 2020-07-10 12:33 | NUR ---
Spoke with Dr. Vega and informed him pt lacks the cognitive ability to actively participate or understand CT angio of chest. Dr. Vega acknowledged understanding and ordered 2 view chest xray.
--- NOTE | 2020-07-10 13:22 | NUR ---
When pt was taken for his xray he was grabbing at door ways on the way to the xray department. He refused to stand and was resistive for his procedure. Pt was yelling "help!" Staff returned to the unit with the pt. Dr. Vega will see the pt today during rounds.
[2020-07-10 15:33] VITALS: BP 147/73
--- NOTE | 2020-07-10 15:48 | NUR ---
Pt is irritable and resistive at this time. He is hitting his walker into the doors on the unit. When staff attempts to redirect him he yells out and states "you are stupid!" Staff redirected pt to the [facility] where he continued to yell out and hit his walker into the doors and demanded "open these doors!" PRN darius jones given in a boost.
--- NOTE | 2020-07-10 18:59 | NUR ---
Dr. Vega called, after reviewing pts chart new order for Augmentin 500mg PO BID x 10 days for pneumonia.
[2020-07-10] MEDS: risperiDONE 0.5 MG TABLET. PO SCH (19:39)
[2020-07-10] MEDS: MIRTAZAPINE 7.5 MG TABLET. PO SCH (19:39)
[2020-07-10] MEDS: MELATONIN 3 MG TABLET PO SCH (19:40)
[2020-07-10] MEDS: traZODone 50 MG TABLET. PO SCH (19:40)
[2020-07-10] MEDS: AMOXICILLIN/K CLAV 500/125MG TABLET. PO SCH (19:41)
[2020-07-10] MEDS ORDERED: AMOXICILLIN/K CLAV 500/125MG TABLET. PO SCH (21:00)
--- NOTE | 2020-07-10 21:30 | NUR ---
Pt located in [facility] all evening. Pt agitated and restless. Pt yelling out, singing and whistling. Pt taking his walker and repeatedly ramming it into the soriano and doors. Attempted to administer HS medications crushed in Boost and pt consumed approximately 25%. PRN Trazodone and Zyprexa administered sublingually with much resistance. Pt later calmed down and was taken to bed. Pt currently sleeping. Will continue to monitor.
--- NOTE | 2020-07-10 21:49 | PDOC ---
Exam Note: Taurus Note: Please also refer to the separate dictated note~for this date of service dictated separately.~Patient seen individually. Discussed the patient with Nursing staff reviewed the chart.~Reviewed interim history and current functioning. Reviewed vital signs,~Labs/ Radiology~and current medications noted below. Continue current treatment with the changes noted in the dictated addendum note Assessment: Vital Signs/I&O: Vital Signs Date Time Temp Pulse Resp B/P (MAP) Pulse Ox O2 Delivery O2 Flow Rate FiO2 07/10/20 19:39 73 147/73 07/10/20 19:21 97.7 98 07/10/20 15:33 18 07/09/20 06:32 Room Air I & O 07/09/20 07/09/20 07/10/20 14:59 22:59 06:59 Intake Total 1140 ml 900 ml Balance 1140 ml 900 ml Labs: Laboratory Tests Test 07/10/20 07:15 07/10/20 10:40 07/10/20 11:00 White Blood Count 3.0 x10^3/uL (4.0-11.0) L Red Blood Count 2.41 x10^6/uL (4.30-5.70) L Hemoglobin 8.0 g/dL (13.0-17.5) L Hematocrit 23.9 % (39.0-53.0) L Mean Corpuscular Volume 99 fL (79-100) Mean Corpuscular Hemoglobin 33 pg (25-35) Mean Corpuscular Hemoglobin Concent 33 g/dL (31-37) Red Cell Distribution Width 15.4 % (11.5-14.5) H Platelet Count 115 x10^3/uL (140-400) L Neutrophils (%) (Auto) 69 % (31-73) Lymphocytes (%) (Auto) 16 % (24-48) L Monocytes (%) (Auto) 11 % (0-9) H Eosinophils (%) (Auto) 3 % (0-3) Basophils (%) (Auto) 1 % (0-3) Neutrophils # (Auto) 2.1 x10^3uL (1.8-7.7) Lymphocytes # (Auto) 0.5 x10^3/uL (1.0-4.8) L Monocytes # (Auto) 0.3 x10^3/uL (0.0-1.1) Eosinophils # (Auto) 0.1 x10^3/uL (0.0-0.7) Basophils # (Auto) 0.0 x10^3/uL (0.0-0.2) Sodium Level 140 mmol/L (136-145) Potassium Level 4.3 mmol/L (3.5-5.1) Chloride Level 108 mmol/L (98-107) H Carbon Dioxide Level 24 mmol/L (21-32) Anion Gap 8 (6-14) Blood Urea Nitrogen 23 mg/dL (8-26) Creatinine 1.0 mg/dL (0.7-1.3) Estimated GFR (Cockcroft-Gault) 71.5 BUN/Creatinine Ratio 23 (6-20) H Glucose Level 84 mg/dL (70-99) Calcium Level 8.3 mg/dL (8.5-10.1) L Total Bilirubin 0.4 mg/dL (0.2-1.0) Aspartate Amino Transferase (AST) 13 U/L (15-37) L Alanine Aminotransferase (ALT) 10 U/L (16-63) L Alkaline Phosphatase 49 U/L (46-116) Total Protein 5.8 g/dL (6.4-8.2) L Albumin 2.2 g/dL (3.4-5.0) L Albumin/Globulin Ratio 0.6 (1.0-1.7) L D-Dimer (Katina) 4.34 mg/L (0.00-0.50) H C-Reactive Protein 17.2 mg/L (0-3.3) H SARS-CoV-2 Antigen (Rapid) Negative (NEGATIVE) Current Medications: Meds: Current Medications Medications (Trade) Dose Ordered Sig/Lit Route PRN Reason Start Time Stop Time Status Last Admin Dose Admin Valproic Acid (Depakene) 750 mg 1700 PO 07/10/20 17:00 07/10/20 15:45 Amoxicillin/ Clavulanate Potassium (Augmentin 500/ 125mg) 1 tab BID PO 07/10/20 21:00 07/20/20 09:01 07/10/20 19:41 I have reviewed the current psychotropics carefully including drug interactions. Risk benefit ratio favors no change other than as noted in my dictated progress note. Diagnosis: Problems: (1) Impulse control disorder, unspecified (2) Anxiety disorder, unspecified (3) Dementia, vascular, with depression (4) Dementia, vascular, with delusions (5) Major neurocognitive disorder (6) Major neurocognitive disorder, due to vascular disease, with behavioral disturbance, mild (7) History of alcohol dependence TL SAMUEL MD Jul 10, 2020 21:49
[2020-07-11 06:08] VITALS: BP 147/77
[2020-07-11] MEDS: VALPROATE ACID 250 MG/5 ML ORAL SOLUTION PO SCH ×2 (07:40→16:09)
[2020-07-11] MEDS: THIAMINE 100 MG TABLET. PO SCH (07:40)
[2020-07-11] MEDS: LOSARTAN 50 MG TABLET. PO SCH (07:40)
[2020-07-11] MEDS: FOLIC ACID 1 MG TABLET PO SCH (07:41)
[2020-07-11] MEDS: POTASSIUM CHLORIDE 20 MEQ TABLET.ER. PO SCH ×2 (07:41→19:18)
[2020-07-11] MEDS: METOPROLOL TART IMMED RELEASE 50 MG TABLET PO SCH ×2 (07:41→19:19)
[2020-07-11] MEDS: AMOXICILLIN/K CLAV 500/125MG TABLET. PO SCH ×2 (07:41→19:17)
[2020-07-11] MEDS: risperiDONE 0.25 MG TABLET. PO SCH (07:41)
[2020-07-11] MEDS: MAGNESIUM OXIDE 400 MG TABLET PO SCH ×3 (07:41→19:17)
[2020-07-11] MEDS: LACTOBACILLUS RHAMNOSUS GG 1 CAPSULE. PO SCH ×2 (07:41→19:18)
[2020-07-11] MEDS: NYSTATIN 100,000 UNIT/GM TOPICAL CREAM 15GM TUBE. TP SCH ×2 (07:42→19:20)
[2020-07-11] MEDS: [UNRECOGNIZED DRUG - OTHER] PO SCH (07:43)
[2020-07-11] MEDS: MULTIVITAMIN PO SCH (07:43)
--- NOTE | 2020-07-11 09:36 | NUR ---
Nursing note: Pt wandering hallway without mask and is unwilling to remain in his room at shift change. Pt brought to west hallway where he began to yell out and анна his walker into the doors. Pt appeared to be seeing kids and was yelling out "I need to save the kids." PRN was given with his AM meds, which he was compliant in taking crushed and mixed with orange juice. After breakfast, pt was yelling out and slightly resistive with his shower, but has remained quiet and pleasant afterwards. Will continue to monitor.
--- NOTE | 2020-07-11 16:21 | NUR ---
Nursing note: Pt wandering the halls and into other rooms on the unit while also yelling out. He is unable to be redirected. PRN administered. Will continue to monitor.
[2020-07-11] MEDS: MELATONIN 3 MG TABLET PO SCH (19:16)
[2020-07-11] MEDS: MIRTAZAPINE 7.5 MG TABLET. PO SCH (19:17)
[2020-07-11] MEDS: risperiDONE 0.5 MG TABLET. PO SCH (19:18)
[2020-07-11] MEDS: traZODone 50 MG TABLET. PO SCH (19:19)
--- NOTE | 2020-07-11 20:17 | NUR ---
Nursing Note Pt banging doors and yelling, speech is nonsensical in a word salad. Pt charging the window in front of the nurses station, agitated and confused, he is using words that seem like he thinks he is in charge and we aren't doing our jobs to his satisfaction. Meds crushed in ice cream 100% compliant. Assisted patient to room approximately 1 hour later and he was calm cooperative and compliant no behaviors. Zyperxa given in HS meds. Resting well now.
--- NOTE | 2020-07-11 22:01 | PDOC ---
Exam Note: Taurus Note: Please also refer to the separate dictated note~for this date of service dictated separately.~Patient seen individually. Discussed the patient with Nursing staff reviewed the chart.~Reviewed interim history and current functioning. Reviewed vital signs,~Labs/ Radiology~and current medications noted below. Continue current treatment with the changes noted in the dictated addendum note Assessment: Vital Signs/I&O: Vital Signs Date Time Temp Pulse Resp B/P (MAP) Pulse Ox O2 Delivery O2 Flow Rate FiO2 07/11/20 19:35 97.8 92 07/11/20 19:19 67 147/77 07/11/20 06:08 18 07/09/20 06:32 Room Air I & O 07/10/20 07/10/20 07/11/20 15:00 23:00 07:00 Intake Total 250 ml 340 ml Balance 250 ml 340 ml Current Medications: I have reviewed the current psychotropics carefully including drug interactions. Risk benefit ratio favors no change other than as noted in my dictated progress note. Diagnosis: Problems: (1) Impulse control disorder, unspecified (2) Anxiety disorder, unspecified (3) Dementia, vascular, with depression (4) Dementia, vascular, with delusions (5) Major neurocognitive disorder (6) Major neurocognitive disorder, due to vascular disease, with behavioral disturbance, mild (7) History of alcohol dependence TL SAMUEL MD Jul 11, 2020 22:01
[2020-07-12 05:57] VITALS: BP 168/90
[2020-07-12] MEDS: MULTIVITAMIN PO SCH (07:44)
[2020-07-12] MEDS: [UNRECOGNIZED DRUG - OTHER] PO SCH (07:44)
[2020-07-12] MEDS: METOPROLOL TART IMMED RELEASE 50 MG TABLET PO SCH ×2 (07:45→19:44)
[2020-07-12] MEDS: THIAMINE 100 MG TABLET. PO SCH (07:45)
[2020-07-12] MEDS: LACTOBACILLUS RHAMNOSUS GG 1 CAPSULE. PO SCH ×2 (07:45→19:43)
[2020-07-12] MEDS: LOSARTAN 50 MG TABLET. PO SCH (07:45)
[2020-07-12] MEDS: VALPROATE ACID 250 MG/5 ML ORAL SOLUTION PO SCH ×2 (07:45→16:58)
[2020-07-12] MEDS: MAGNESIUM OXIDE 400 MG TABLET PO SCH ×3 (07:45→19:44)
[2020-07-12] MEDS: AMOXICILLIN/K CLAV 500/125MG TABLET. PO SCH ×2 (07:46→19:43)
[2020-07-12] MEDS: FOLIC ACID 1 MG TABLET PO SCH (07:46)
[2020-07-12] MEDS: NYSTATIN 100,000 UNIT/GM TOPICAL CREAM 15GM TUBE. TP SCH ×2 (07:46→19:43)
[2020-07-12] MEDS: risperiDONE 0.25 MG TABLET. PO SCH (07:46)
[2020-07-12] MEDS: POTASSIUM CHLORIDE 20 MEQ TABLET.ER. PO SCH ×2 (07:46→19:44)
[2020-07-12 07:52] LABS: BASO % 1 % (0-3); EOS # 0.1 x10^3/uL (0.0-0.7); EOS % 4 % (0-3); HEMATOCRIT 24.8 % (39.0-53.0); HEMOGLOBIN 8.3 g/dL (13.0-17.5); LYMPH # 0.5 x10^3/uL (1.0-4.8); LYMPH % 18 % (24-48); MEAN CORPUSCULAR HEMOGLOBIN 33 pg (25-35); MEAN CORPUSCULAR HGB CONC 33 g/dL (31-37); MEAN CORPUSCULAR VOLUME 98 fL (79-100); MONO # 0.3 x10^3/uL (0.0-1.1); MONO % 12 % (0-9); NEUT # 1.7 x10^3uL (1.8-7.7); NEUT % 65 % (31-73); PLATELET COUNT 119 x10^3/uL (140-400); RED BLOOD COUNT 2.54 x10^6/uL (4.30-5.70); WHITE BLOOD COUNT 2.6 x10^3/uL (4.0-11.0)
[2020-07-12 08:00] LABS: ALBUMIN 2.4 g/dL (3.4-5.0); ALBUMIN/GLOBULIN RATIO 0.6 (1.0-1.7); CALCIUM 8.9 mg/dL (8.5-10.1); GFR 71.5; POTASSIUM 5.1 mmol/L (3.5-5.1); TOTAL BILIRUBIN 0.4 mg/dL (0.2-1.0); TOTAL PROTEIN 6.4 g/dL (6.4-8.2)
--- NOTE | 2020-07-12 10:00 | NUR ---
Nursing note: Pt sleeping when approached for morning med pass. He was easily aroused, was cooperative with assessment and compliant with his meds crushed and mixed in a cup of orange juice. He went back to sleep shortly afterwards. Will continue to monitor.
[2020-07-12 15:07] VITALS: BP 125/77
[2020-07-12 19:30] VITALS: BP 130/70
[2020-07-12] MEDS: traZODone 50 MG TABLET. PO SCH (19:43)
[2020-07-12] MEDS: MELATONIN 3 MG TABLET PO SCH (19:43)
[2020-07-12] MEDS: risperiDONE 0.5 MG TABLET. PO SCH (19:44)
[2020-07-12] MEDS: MIRTAZAPINE 7.5 MG TABLET. PO SCH (19:44)
--- NOTE | 2020-07-12 20:40 | NUR ---
Nursing Note: Location of Patient during Assessment: Pt up ambulating in hallway and room with walker at shift change. Behaviors Mood and Affect this shift: Pt disorganized, confused, and restless. Pt had a BM this evening, took his brief off and smeared BM on the wall, had BM on his hands, down his left thigh and leg. Staff assisted pt to the shower to clean up. Pt was then cooperative with shower and HS cares. Medication Compliant: Compliant with medications administered crushed in ice cream. Assessment Compliant: Cooperative and compliant with assessment. Response After Interventions: Pt currently resting quietly in bed with eyes closed.
--- NOTE | 2020-07-12 21:53 | PDOC ---
Exam Note: Taurus Note: Please also refer to the separate dictated note~for this date of service dictated separately.~Patient seen individually. Discussed the patient with Nursing staff reviewed the chart.~Reviewed interim history and current functioning. Reviewed vital signs,~Labs/ Radiology~and current medications noted below. Continue current treatment with the changes noted in the dictated addendum note Assessment: Vital Signs/I&O: Vital Signs Date Time Temp Pulse Resp B/P (MAP) Pulse Ox O2 Delivery O2 Flow Rate FiO2 07/12/20 19:44 71 130/70 07/12/20 15:07 97.8 16 98 Room Air I & O 07/11/20 07/11/20 07/12/20 15:00 23:00 07:00 Intake Total 600 ml 360 ml Balance 600 ml 360 ml Labs: Laboratory Tests Test 07/12/20 07:35 White Blood Count 2.6 x10^3/uL (4.0-11.0) L Red Blood Count 2.54 x10^6/uL (4.30-5.70) L Hemoglobin 8.3 g/dL (13.0-17.5) L Hematocrit 24.8 % (39.0-53.0) L Mean Corpuscular Volume 98 fL (79-100) Mean Corpuscular Hemoglobin 33 pg (25-35) Mean Corpuscular Hemoglobin Concent 33 g/dL (31-37) Red Cell Distribution Width 15.0 % (11.5-14.5) H Platelet Count 119 x10^3/uL (140-400) L Neutrophils (%) (Auto) 65 % (31-73) Lymphocytes (%) (Auto) 18 % (24-48) L Monocytes (%) (Auto) 12 % (0-9) H Eosinophils (%) (Auto) 4 % (0-3) H Basophils (%) (Auto) 1 % (0-3) Neutrophils # (Auto) 1.7 x10^3uL (1.8-7.7) L Lymphocytes # (Auto) 0.5 x10^3/uL (1.0-4.8) L Monocytes # (Auto) 0.3 x10^3/uL (0.0-1.1) Eosinophils # (Auto) 0.1 x10^3/uL (0.0-0.7) Basophils # (Auto) 0.0 x10^3/uL (0.0-0.2) Sodium Level 142 mmol/L (136-145) Potassium Level 5.1 mmol/L (3.5-5.1) Chloride Level 110 mmol/L (98-107) H Carbon Dioxide Level 26 mmol/L (21-32) Anion Gap 6 (6-14) Blood Urea Nitrogen 23 mg/dL (8-26) Creatinine 1.0 mg/dL (0.7-1.3) Estimated GFR (Cockcroft-Gault) 71.5 BUN/Creatinine Ratio 23 (6-20) H Glucose Level 84 mg/dL (70-99) Calcium Level 8.9 mg/dL (8.5-10.1) Total Bilirubin 0.4 mg/dL (0.2-1.0) Aspartate Amino Transferase (AST) 12 U/L (15-37) L Alanine Aminotransferase (ALT) 11 U/L (16-63) L Alkaline Phosphatase 53 U/L (46-116) Total Protein 6.4 g/dL (6.4-8.2) Albumin 2.4 g/dL (3.4-5.0) L Albumin/Globulin Ratio 0.6 (1.0-1.7) L Current Medications: I have reviewed the current psychotropics carefully including drug interactions. Risk benefit ratio favors no change other than as noted in my dictated progress note. Diagnosis: Problems: (1) Impulse control disorder, unspecified (2) Anxiety disorder, unspecified (3) Dementia, vascular, with depression (4) Dementia, vascular, with delusions (5) Major neurocognitive disorder (6) Major neurocognitive disorder, due to vascular disease, with behavioral disturbance, mild (7) History of alcohol dependence TL SAMUEL MD Jul 12, 2020 21:53
[2020-07-13 06:13] VITALS: BP 165/67
[2020-07-13 06:20] LABS: BASO % 1 % (0-3); EOS # 0.1 x10^3/uL (0.0-0.7); EOS % 3 % (0-3); HEMATOCRIT 29.4 % (39.0-53.0); HEMOGLOBIN 9.7 g/dL (13.0-17.5); LYMPH # 0.6 x10^3/uL (1.0-4.8); LYMPH % 19 % (24-48); MEAN CORPUSCULAR HEMOGLOBIN 32 pg (25-35); MEAN CORPUSCULAR HGB CONC 33 g/dL (31-37); MEAN CORPUSCULAR VOLUME 98 fL (79-100); MONO # 0.3 x10^3/uL (0.0-1.1); MONO % 10 % (0-9); NEUT # 2.2 x10^3uL (1.8-7.7); NEUT % 67 % (31-73); PLATELET COUNT 141 x10^3/uL (140-400); RED BLOOD COUNT 3.01 x10^6/uL (4.30-5.70); RED CELL DISTRIBUTION WIDTH 15.4 % (11.5-14.5); WHITE BLOOD COUNT 3.3 x10^3/uL (4.0-11.0)
--- NOTE | 2020-07-13 06:30 | PDOC ---
Exam Note: Taurus Note: This note is a late entry for 07/10/2020 covers elements not covered in my initial note. Subjective: The patient was reviewed on telehealth rounds in the evening of 07/10/2020 due to COVID-19 restrictions on the unit with Wendy MOREL. Discussed with nursing staff, reviewed the chart. He has a probable pneumonia. Dr. Vega wondered about COVID-19 pneumonia but the Rapid COVID test is negative and the repeat test result is awaited. We will defer medical management to Dr. Vega. Review of Systems: Ambulation impaired with walker. No CV, , pulmonary, eye system symptoms on review. Mental Status Exam: Oriented to himself. He has been quite irritable, labile, dismissive, anxious. He has to be in the West hallway but some of this could well be due to his general medical condition. Insight and judgment, recent and remote memory, attention and concentration, fund of knowledge is poor consistent with his diagnoses. No suicidal or homicidal ideation. Laboratory Data: Reviewed. 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 Anxiety disorder unspecified. Plan: We will defer medical management to Dr. Vega. Continue current psychot ropics unchanged. He may be transferred to the Medical/Surgical Floor for pneumonia but again will let Dr. Vega decide. Assessment: Vital Signs/I&O: Vital Signs Date Time Temp Pulse Resp B/P (MAP) Pulse Ox O2 Delivery O2 Flow Rate FiO2 07/13/20 06:13 70 20 165/67 (99) 97 Room Air 07/12/20 15:07 97.8 I & O 07/12/20 07/12/20 07/13/20 15:00 23:00 07:00 Intake Total 240 ml 480 ml Balance 240 ml 480 ml Labs: Laboratory Tests Test 07/12/20 07:35 07/13/20 06:05 White Blood Count 2.6 x10^3/uL (4.0-11.0) L 3.3 x10^3/uL (4.0-11.0) L Red Blood Count 2.54 x10^6/uL (4.30-5.70) L 3.01 x10^6/uL (4.30-5.70) L Hemoglobin 8.3 g/dL (13.0-17.5) L 9.7 g/dL (13.0-17.5) L Hematocrit 24.8 % (39.0-53.0) L 29.4 % (39.0-53.0) L Mean Corpuscular Volume 98 fL (79-100) 98 fL (79-100) Mean Corpuscular Hemoglobin 33 pg (25-35) 32 pg (25-35) Mean Corpuscular Hemoglobin Concent 33 g/dL (31-37) 33 g/dL (31-37) Red Cell Distribution Width 15.0 % (11.5-14.5) H 15.4 % (11.5-14.5) H Platelet Count 119 x10^3/uL (140-400) L 141 x10^3/uL (140-400) Neutrophils (%) (Auto) 65 % (31-73) 67 % (31-73) Lymphocytes (%) (Auto) 18 % (24-48) L 19 % (24-48) L Monocytes (%) (Auto) 12 % (0-9) H 10 % (0-9) H Eosinophils (%) (Auto) 4 % (0-3) H 3 % (0-3) Basophils (%) (Auto) 1 % (0-3) 1 % (0-3) Neutrophils # (Auto) 1.7 x10^3uL (1.8-7.7) L 2.2 x10^3uL (1.8-7.7) Lymphocytes # (Auto) 0.5 x10^3/uL (1.0-4.8) L 0.6 x10^3/uL (1.0-4.8) L Monocytes # (Auto) 0.3 x10^3/uL (0.0-1.1) 0.3 x10^3/uL (0.0-1.1) Eosinophils # (Auto) 0.1 x10^3/uL (0.0-0.7) 0.1 x10^3/uL (0.0-0.7) Basophils # (Auto) 0.0 x10^3/uL (0.0-0.2) 0.0 x10^3/uL (0.0-0.2) Sodium Level 142 mmol/L (136-145) Potassium Level 5.1 mmol/L (3.5-5.1) Chloride Level 110 mmol/L (98-107) H Carbon Dioxide Level 26 mmol/L (21-32) Anion Gap 6 (6-14) Blood Urea Nitrogen 23 mg/dL (8-26) Creatinine 1.0 mg/dL (0.7-1.3) Estimated GFR (Cockcroft-Gault) 71.5 BUN/Creatinine Ratio 23 (6-20) H Glucose Level 84 mg/dL (70-99) Calcium Level 8.9 mg/dL (8.5-10.1) Total Bilirubin 0.4 mg/dL (0.2-1.0) Aspartate Amino Transferase (AST) 12 U/L (15-37) L Alanine Aminotransferase (ALT) 11 U/L (16-63) L Alkaline Phosphatase 53 U/L (46-116) Total Protein 6.4 g/dL (6.4-8.2) Albumin 2.4 g/dL (3.4-5.0) L Albumin/Globulin Ratio 0.6 (1.0-1.7) L Current Medications: I have reviewed the current psychotropics carefully including drug interactions. Risk benefit ratio favors no change other than as noted in my dictated progress note. Diagnosis: Problems: (1) Impulse control disorder, unspecified (2) Anxiety disorder, unspecified (3) Dementia, vascular, with depression (4) Dementia, vascular, with delusions (5) Major neurocognitive disorder (6) Major neurocognitive disorder, due to vascular disease, with behavioral disturbance, mild (7) History of alcohol dependence TL SAMUEL MD Jul 13, 2020 06:30
[2020-07-13 06:33] LABS: ALBUMIN 2.9 g/dL (3.4-5.0); ALBUMIN/GLOBULIN RATIO 0.7 (1.0-1.7); ALK PHOS 59 U/L (46-116); ALT (SGPT) 13 U/L (16-63); ANION GAP 7 (6-14); AST (SGOT) 16 U/L (15-37); BLOOD UREA NITROGEN 24 mg/dL (8-26); BUN/CREATININE RATIO 24 (6-20); CALCIUM 9.5 mg/dL (8.5-10.1); CARBON DIOXIDE 27 mmol/L (21-32); CHLORIDE 109 mmol/L (98-107); GFR 71.5; GLUCOSE 86 mg/dL (70-99); POTASSIUM 5.3 mmol/L (3.5-5.1); SODIUM 143 mmol/L (136-145); TOTAL BILIRUBIN 0.5 mg/dL (0.2-1.0); TOTAL PROTEIN 7.3 g/dL (6.4-8.2)
--- NOTE | 2020-07-13 06:39 | PDOC ---
Exam Note: Taurus Note: This note is a late entry for 07/11/2020 covers elements not covered in my initial note. Subjective: The patient was seen face to face in the evening of 07/11/2020 with Maddy MOREL. Discussed with nursing staff, reviewed the chart. The patient has been yelling, wandering, refusing to wear his mask, had to be placed in the West hallway for this. He does have pneumonia, being managed by Dr. Vega. He did receive Zyprexa Zydis for his agitation. At 2 p.m. he was yelling, agitated, restless, and labile. He remains on Augmentin for his pneumonia. COVID repeat test was negative. Review of Systems: Ambulation impaired with walker. He was banging his walker on the exit doors to the West hallway. No CV, , pulmonary, eye system symptoms on review. Mental Status Exam: Oriented to himself. He is disruptive, anxious, restless. Insight and judgment, recent and remote memory, attention and concentration, fund of knowledge is poor consistent with his diagnoses. No suicidal or homicidal ideation. Laboratory Data: Reviewed and seems to be improving. 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 Anxiety disorder unspecified. Plan: Continue psychotropics from my initial note. Treat the pneumonia. We will make further adjustments of his psychotropics depending on how he does with his agitation once the pneumonia resolves. Assessment: Vital Signs/I&O: Vital Signs Date Time Temp Pulse Resp B/P (MAP) Pulse Ox O2 Delivery O2 Flow Rate FiO2 07/13/20 06:13 70 20 165/67 (99) 97 Room Air 07/12/20 15:07 97.8 I & O 07/12/20 07/12/20 07/13/20 15:00 23:00 07:00 Intake Total 240 ml 480 ml Balance 240 ml 480 ml Labs: Laboratory Tests Test 07/12/20 07:35 07/13/20 06:05 White Blood Count 2.6 x10^3/uL (4.0-11.0) L 3.3 x10^3/uL (4.0-11.0) L Red Blood Count 2.54 x10^6/uL (4.30-5.70) L 3.01 x10^6/uL (4.30-5.70) L Hemoglobin 8.3 g/dL (13.0-17.5) L 9.7 g/dL (13.0-17.5) L Hematocrit 24.8 % (39.0-53.0) L 29.4 % (39.0-53.0) L Mean Corpuscular Volume 98 fL (79-100) 98 fL (79-100) Mean Corpuscular Hemoglobin 33 pg (25-35) 32 pg (25-35) Mean Corpuscular Hemoglobin Concent 33 g/dL (31-37) 33 g/dL (31-37) Red Cell Distribution Width 15.0 % (11.5-14.5) H 15.4 % (11.5-14.5) H Platelet Count 119 x10^3/uL (140-400) L 141 x10^3/uL (140-400) Neutrophils (%) (Auto) 65 % (31-73) 67 % (31-73) Lymphocytes (%) (Auto) 18 % (24-48) L 19 % (24-48) L Monocytes (%) (Auto) 12 % (0-9) H 10 % (0-9) H Eosinophils (%) (Auto) 4 % (0-3) H 3 % (0-3) Basophils (%) (Auto) 1 % (0-3) 1 % (0-3) Neutrophils # (Auto) 1.7 x10^3uL (1.8-7.7) L 2.2 x10^3uL (1.8-7.7) Lymphocytes # (Auto) 0.5 x10^3/uL (1.0-4.8) L 0.6 x10^3/uL (1.0-4.8) L Monocytes # (Auto) 0.3 x10^3/uL (0.0-1.1) 0.3 x10^3/uL (0.0-1.1) Eosinophils # (Auto) 0.1 x10^3/uL (0.0-0.7) 0.1 x10^3/uL (0.0-0.7) Basophils # (Auto) 0.0 x10^3/uL (0.0-0.2) 0.0 x10^3/uL (0.0-0.2) Sodium Level 142 mmol/L (136-145) Potassium Level 5.1 mmol/L (3.5-5.1) Chloride Level 110 mmol/L (98-107) H Carbon Dioxide Level 26 mmol/L (21-32) Anion Gap 6 (6-14) Blood Urea Nitrogen 23 mg/dL (8-26) Creatinine 1.0 mg/dL (0.7-1.3) Estimated GFR (Cockcroft-Gault) 71.5 BUN/Creatinine Ratio 23 (6-20) H Glucose Level 84 mg/dL (70-99) Calcium Level 8.9 mg/dL (8.5-10.1) Total Bilirubin 0.4 mg/dL (0.2-1.0) Aspartate Amino Transferase (AST) 12 U/L (15-37) L Alanine Aminotransferase (ALT) 11 U/L (16-63) L Alkaline Phosphatase 53 U/L (46-116) Total Protein 6.4 g/dL (6.4-8.2) Albumin 2.4 g/dL (3.4-5.0) L Albumin/Globulin Ratio 0.6 (1.0-1.7) L Current Medications: I have reviewed the current psychotropics carefully including drug interactions. Risk benefit ratio favors no change other than as noted in my dictated progress note. Diagnosis: Problems: (1) Impulse control disorder, unspecified (2) Anxiety disorder, unspecified (3) Dementia, vascular, with depression (4) Dementia, vascular, with delusions (5) Major neurocognitive disorder (6) Major neurocognitive disorder, due to vascular disease, with behavioral disturbance, mild (7) History of alcohol dependence TL SAMUEL MD Jul 13, 2020 06:39
[2020-07-13 06:45] LABS: VAL ACID 64 mcg/mL (50-100)
[2020-07-13] MEDS: NYSTATIN 100,000 UNIT/GM TOPICAL CREAM 15GM TUBE. TP SCH (07:40)
[2020-07-13] MEDS: LACTOBACILLUS RHAMNOSUS GG 1 CAPSULE. PO SCH ×2 (07:40→21:43)
[2020-07-13] MEDS: AMOXICILLIN/K CLAV 500/125MG TABLET. PO SCH ×2 (07:40→21:43)
[2020-07-13] MEDS: MULTIVITAMIN PO SCH (07:40)
[2020-07-13] MEDS: VALPROATE ACID 250 MG/5 ML ORAL SOLUTION PO SCH ×2 (07:40→17:13)
[2020-07-13] MEDS: [UNRECOGNIZED DRUG - OTHER] PO SCH (07:40)
[2020-07-13] MEDS: risperiDONE 0.25 MG TABLET. PO SCH (07:41)
[2020-07-13] MEDS: POTASSIUM CHLORIDE 20 MEQ TABLET.ER. PO SCH ×2 (07:41→21:00)
[2020-07-13] MEDS: METOPROLOL TART IMMED RELEASE 50 MG TABLET PO SCH ×2 (07:41→21:44)
[2020-07-13] MEDS: MAGNESIUM OXIDE 400 MG TABLET PO SCH ×3 (07:42→21:44)
[2020-07-13] MEDS: THIAMINE 100 MG TABLET. PO SCH (07:42)
[2020-07-13] MEDS: FOLIC ACID 1 MG TABLET PO SCH (07:43)
[2020-07-13] MEDS: LOSARTAN 50 MG TABLET. PO SCH (07:43)
--- NOTE | 2020-07-13 10:27 | NUR ---
WEEKLY ACTIVITY THERAPY NOTE Date of Admission:05/27 Date of AT Assessment:05/30 Precipitating behaviors that initiated intake and admission:Pt admitted to [facility] on 05/11 for rhabdo, delirium and DT's (60 yrs of ETOH). Pt sent to jail on 05/25 and was there for less than 24hrs d/t combative behaviors. Pt sent back to [facility] on 05/26 where he refused meds, cares, etc. Goal aimed:increase time management and socialization skills Initial Goal: Pt will participate in one group or individual Activity Therapy session per week. Weekly progress towards goal: achieved Group participation level: 1 min Weekly highlights: engaged in group on Friday when he was around group Behaviors observed: walks aimlessly at times, confused, difficult to engage, forgets to wear mask in hallways and can be resistive at times, reading at times Plan: no change to goal Beneficial adaptations:
--- NOTE | 2020-07-13 10:34 | NUR ---
Patient in nogal hallway at beginning of shift and angrily using his walker to pace back and forth. He is in the hallway because he has not been wearing his mask when out of his room and refusing to put it on when asked. (a unit policy r/t COVID 19 precautions) Patient has been talking a lot this morning. He was motioning for nurse to come into hallway and said "can you sit for awhile?" Nurse is now sitting in [facility] with patient and charting. Patient was compliant with his medications and took them in orange juice, they were provided in a styrofoam cup with a lid and a straw. He does better when medications are given in the juice before he gets his meal. Patient has been calm and pleasant. His speech is clear with rambling sentences. He is interacting with nurse in hallway and social this morning. Patient is aware of his name and that he is 80 years old. He also knows he is not at home but "doesn't care to speculate" where he is. Patient appears to be having visual hallucinations as he is reaching onto the floor to picker tender helper unseen objects.
--- NOTE | 2020-07-13 11:19 | TX PLAN ---
Interdisciplinary Tx Plan Admission Information May 27, 2020 at 22:24 Legal Status (on Admission): Voluntary DPOA/Guardian Name: Sara Arnold Contact Other Contact Name: [facility] Verified Code Status: DNR Allergies: Coded Allergies: No Known Drug Allergies (Unverified , 05/27/20) Diagnoses Primary Diagnosis: Dementia with BD Reasons for Admission: Agitated, Confusion/Disoriented Problem in Patient's Words: He has noticeably been decreasing in cognition and physical health over the last 6-8 months. Additional Admission Comments: The intake reports that pt is confused and agitated; but no other behaviors or scenarios noted. Problems Active Problems: Agitated Confusion Paranoid Inactive Problems: Mostly medication compliant Pt Strengths/Limitations Ability for [place]: Poor Cognitive Functioning/Ability: Poor Communication Skills/Ability: Fair Financial Resources: Fair Insight/Judgement: Poor Intellectual Ability: Fair Physical Health: Poor Social Skills: Fair Stability in Family: Good Stability in School/Work: Poor Verbal Skills: Fair Discharge Criteria Discharge Criteria: No need for close observ., Adequate arrangements @DC, Improved behavior, Improved mood/thought Preliminary Discharge Plan Preliminary DC Plan: Placement Needed Special Precautions Fall Risk: Moderate Initial D/C Plan Pt will need a higher level of care; not able to return to [facility] Identified Discharge Needs: Referrals to higher level of care Currently Utilized Resources Currently Utilized Resources/P: Primary Care Physician Referrals Community Resources: Referrals to [facility]/Memory Care facilities Identified Problems/Hx/Goals Objectives/Short-Term Goals Short Term Goals: Dec. Outbursts, Medication Stabilization, Monitor Med Effects, Promote Coping Skill, Other Short Term Goals in Patient's: N/A Interventions/Frequency Staff Interventions/Frequency&: Psychiatrist to assess pt at least 3x per week. Social Work to assess pt at least 2x per week. Nursing to monitor behavior, medications and complete 15 minute checks daily Encourage group participation in activities or 1:1 engagement based off activity dept assessment. 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 He lastly retired from [employer] in [place], [place]. Education: Masters in Education Community Follow-up Continue to follow-up with PCP Community Provider/Family Inpu: I just need help in finding him an appropriate place to go. He wants to go home but I just do not think it is safe right now. Treatment Plan Explained Patient/[employer] had this treatment plan explained to him/her as indicated by the signature below and has been given the opportunity to ask questions and make suggestions: Date: Patient/[employer] Signature: Status Update Update Pt is eating up to 50% of meals and sleeping on average 7 hours a night. Pt continues to be somewhat difficult as he walks the hallways with no mask and requires time in the [place] [facility] for compliance concerns. While in the hallway, pt tends to yell at staff and bangs his RW against the wall. Pt does take his medications crushed in either juice or ice cream. Pt VPA is up to 61; it appears that most of pt labs are slowing going back up, whereas, the concern from last week was that they had "tanked". The nurse will speak with the hospitalist about pt Potassium levels. Pt will start a dose of Trazodone 25 mg in the evening and see how pt does. At this time, pt can look to discharge towards the latter part of next week. TAMMIE DEY Jul 13, 2020 11:19
--- NOTE | 2020-07-13 13:15 | NUR ---
SIMONE received a call from pt dtr who wanted to just follow up on pt. SIMONE gave pt dtr, Saranya, an update on how pt is doing. SIMONE discussed the fact that while pt behaviors are not uncommon for those with Dementia; facilities are going to want him to be less "aggressive" in terms of yelling at people, running his walker into the soriano and more cooperative with cares/meds. Pt dtr is concerned that no one will take pt and SIMONE discussed increasing pt search area for placement. Placement will need to be in [place] as pt Medicaid information has been turned into the state. SIMONE will continue to keep Saranya updated and reports plans to send out referrals on Friday in hopes to have pt discharge later next week.
[2020-07-13] MEDS: traZODone 50 MG TABLET. PO SCH ×2 (13:56→21:43)
[2020-07-13 15:33] VITALS: BP 122/87
--- NOTE | 2020-07-13 18:35 | NUR ---
Patient has had a good day. He is still forgetting to wear his mask so he has returned to the [facility]. He seems to enjoy sitting in the chair and talking to this nurse. As long as someone acknowledges his conversations (even though most of them don't make sense) he remains calm. He has been up with his walker quite often today. He has been eating well, and taking his medications hidden in food or drink. Patient spilled soup on his sweat pants at lunch and nurse and tech were able to change him by talking him thru the process and going slow. He stated he does not like it when two people talk at the same time and does not like loud noises.
[2020-07-13] MEDS: MELATONIN 3 MG TABLET PO SCH (21:43)
[2020-07-13] MEDS: risperiDONE 0.5 MG TABLET. PO SCH (21:44)
[2020-07-13] MEDS: MIRTAZAPINE 7.5 MG TABLET. PO SCH (21:44)
--- NOTE | 2020-07-13 21:45 | PDOC ---
Exam Note: Taurus Note: Please also refer to the separate dictated note~for this date of service dictated separately.~Patient seen individually. Discussed the patient with Nursing staff reviewed the chart.~Reviewed interim history and current functioning. Reviewed vital signs,~Labs/ Radiology~and current medications noted below. Continue current treatment with the changes noted in the dictated addendum note Assessment: Vital Signs/I&O: Vital Signs Date Time Temp Pulse Resp B/P (MAP) Pulse Ox O2 Delivery O2 Flow Rate FiO2 07/13/20 15:33 98.3 62 17 122/87 (99) 97 Room Air I & O 07/12/20 07/12/20 07/13/20 15:00 23:00 07:00 Intake Total 240 ml 480 ml Balance 240 ml 480 ml Labs: Laboratory Tests Test 07/13/20 06:05 White Blood Count 3.3 x10^3/uL (4.0-11.0) L Red Blood Count 3.01 x10^6/uL (4.30-5.70) L Hemoglobin 9.7 g/dL (13.0-17.5) L Hematocrit 29.4 % (39.0-53.0) L Mean Corpuscular Volume 98 fL (79-100) Mean Corpuscular Hemoglobin 32 pg (25-35) Mean Corpuscular Hemoglobin Concent 33 g/dL (31-37) Red Cell Distribution Width 15.4 % (11.5-14.5) H Platelet Count 141 x10^3/uL (140-400) Neutrophils (%) (Auto) 67 % (31-73) Lymphocytes (%) (Auto) 19 % (24-48) L Monocytes (%) (Auto) 10 % (0-9) H Eosinophils (%) (Auto) 3 % (0-3) Basophils (%) (Auto) 1 % (0-3) Neutrophils # (Auto) 2.2 x10^3uL (1.8-7.7) Lymphocytes # (Auto) 0.6 x10^3/uL (1.0-4.8) L Monocytes # (Auto) 0.3 x10^3/uL (0.0-1.1) Eosinophils # (Auto) 0.1 x10^3/uL (0.0-0.7) Basophils # (Auto) 0.0 x10^3/uL (0.0-0.2) Sodium Level 143 mmol/L (136-145) Potassium Level 5.3 mmol/L (3.5-5.1) H Chloride Level 109 mmol/L (98-107) H Carbon Dioxide Level 27 mmol/L (21-32) Anion Gap 7 (6-14) Blood Urea Nitrogen 24 mg/dL (8-26) Creatinine 1.0 mg/dL (0.7-1.3) Estimated GFR (Cockcroft-Gault) 71.5 BUN/Creatinine Ratio 24 (6-20) H Glucose Level 86 mg/dL (70-99) Calcium Level 9.5 mg/dL (8.5-10.1) Total Bilirubin 0.5 mg/dL (0.2-1.0) Aspartate Amino Transferase (AST) 16 U/L (15-37) Alanine Aminotransferase (ALT) 13 U/L (16-63) L Alkaline Phosphatase 59 U/L (46-116) Total Protein 7.3 g/dL (6.4-8.2) Albumin 2.9 g/dL (3.4-5.0) L Albumin/Globulin Ratio 0.7 (1.0-1.7) L Valproic Acid Level 64 mcg/mL (50-100) Valproic Acid Last Dose Date 07/12/20 Valproic Acid Last Dose Time 1700 Current Medications: Meds: Current Medications Medications (Trade) Dose Ordered Sig/Lit Route PRN Reason Start Time Stop Time Status Last Admin Dose Admin Trazodone HCl (Desyrel) 12.5 mg 1300 PO 07/13/20 13:00 07/13/20 13:56 I have reviewed the current psychotropics carefully including drug interactions. Risk benefit ratio favors no change other than as noted in my dictated progress note. Diagnosis: Problems: (1) Impulse control disorder, unspecified (2) Anxiety disorder, unspecified (3) Dementia, vascular, with depression (4) Dementia, vascular, with delusions (5) Major neurocognitive disorder (6) Major neurocognitive disorder, due to vascular disease, with behavioral disturbance, mild (7) History of alcohol dependence TL SAMUEL MD Jul 13, 2020 21:45
--- NOTE | 2020-07-14 04:37 | NUR ---
Nursing Note The patient was located in the quiet hyde initially this shift r/t refusal by the patient to wear a mask while outside his room. The patient repeatedly banged on doors and raised his voice while in the quiet hyde. The patient eventually calmed down and was able to take his medication crushed in vanilla ice cream. The patient is currently sleeping in his room.
[2020-07-14] MEDS: NYSTATIN 100,000 UNIT/GM TOPICAL CREAM 15GM TUBE. TP SCH ×3 (06:04→20:46)
--- NOTE | 2020-07-14 06:22 | PDOC ---
Exam Note: Taurus Note: This note is a late entry for 07/12/2020 covers elements not covered in my initial note. Subjective: The patient was seen face to face in the evening of 07/12/2020 with Maddy MOREL. Discussed with nursing staff, reviewed the chart. The patient slept 9 hours previous night. Previous evening, he was quite irritable, dismissive of staff. He did receive Zyprexa Zydis twice a day and was somewhat sedated earlier in the day. Review of Systems: Ambulation impaired with walker. No CV, , pulmonary, eye system symptoms on review. He is hard of hearing. Mental Status Exam: Oriented to himself. Insight and judgment, recent and remote memory, attention and concentration, fund of knowledge is poor consistent with his diagnoses. No suicidal or homicidal ideation. Laboratory Data: Reviewed. 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 Anxiety disorder unspecified. Plan: Continue psychotropics from my initial note. Assessment: Vital Signs/I&O: Vital Signs Date Time Temp Pulse Resp B/P (MAP) Pulse Ox O2 Delivery O2 Flow Rate FiO2 07/13/20 21:44 62 122/87 07/13/20 15:33 98.3 17 97 Room Air I & O 07/13/20 07/13/20 07/14/20 15:00 23:00 07:00 Intake Total 420 ml 680 ml Balance 420 ml 680 ml Current Medications: Meds: Current Medications Medications (Trade) Dose Ordered Sig/Lit Route PRN Reason Start Time Stop Time Status Last Admin Dose Admin Trazodone HCl (Desyrel) 12.5 mg 1300 PO 07/13/20 13:00 07/13/20 13:56 I have reviewed the current psychotropics carefully including drug interactions. Risk benefit ratio favors no change other than as noted in my dictated progress note. Diagnosis: Problems: (1) Impulse control disorder, unspecified (2) Anxiety disorder, unspecified (3) Dementia, vascular, with depression (4) Dementia, vascular, with delusions (5) Major neurocognitive disorder (6) Major neurocognitive disorder, due to vascular disease, with behavioral disturbance, mild (7) History of alcohol dependence TL SAMUEL MD Jul 14, 2020 06:22
[2020-07-14 06:30] VITALS: BP 135/70
--- NOTE | 2020-07-14 06:47 | PDOC ---
Exam Note: Taurus Note: This note is a late entry for 07/13/2020 covers elements not covered in my initial note. Subjective: The patient was reviewed on telehealth rounds in the morning of 07/13/2020 with treatment team with Kami, social service staff, Meaghan MOREL, and Amanda Activity therapy. Discussed with nursing staff, reviewed the chart. The patient was also reviewed individually on telehealth rounds in the evening. Previous night he was banging his walker against the wall, yelling, labile, paranoid, confused but done better towards the evening. Appetite is 60%. He slept 7 hours previous night. We will go ahead and add trazodone 12.5 mg 1 p.m. to help with his mood lability. Review of Systems: Ambulation impaired with walker. He is hard of hearing. No CV, , pulmonary, eye system symptoms on review. Mental Status Exam: Oriented to himself. Insight and judgment, recent and remote memory, attention and concentration, fund of knowledge is poor consistent with his diagnoses. No suicidal or homicidal ideation. Laboratory Data: Reviewed. Potassium 5.3. Valproic acid level therapeutic at 61. CBC and chemistry profile are improving. We will defer to Dr. Vega. 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 Anxiety disorder unspecified. Plan: Continue psychotropics from my initial note. Assessment: Vital Signs/I&O: Vital Signs Date Time Temp Pulse Resp B/P (MAP) Pulse Ox O2 Delivery O2 Flow Rate FiO2 07/14/20 06:30 96.7 70 14 135/70 (91) 98 07/13/20 15:33 Room Air I & O 07/13/20 07/13/20 07/14/20 15:00 23:00 07:00 Intake Total 420 ml 680 ml Balance 420 ml 680 ml Current Medications: Meds: Current Medications Medications (Trade) Dose Ordered Sig/Lit Route PRN Reason Start Time Stop Time Status Last Admin Dose Admin Trazodone HCl (Desyrel) 12.5 mg 1300 PO 07/13/20 13:00 07/13/20 13:56 I have reviewed the current psychotropics carefully including drug interactions. Risk benefit ratio favors no change other than as noted in my dictated progress note. Diagnosis: Problems: (1) Impulse control disorder, unspecified (2) Anxiety disorder, unspecified (3) Dementia, vascular, with depression (4) Dementia, vascular, with delusions (5) Major neurocognitive disorder (6) Major neurocognitive disorder, due to vascular disease, with behavioral disturbance, mild (7) History of alcohol dependence TL SAMUEL MD Jul 14, 2020 06:47
[2020-07-14] MEDS: risperiDONE 0.25 MG TABLET. PO SCH (08:12)
[2020-07-14] MEDS: VALPROATE ACID 250 MG/5 ML ORAL SOLUTION PO SCH ×2 (08:12→16:47)
[2020-07-14] MEDS: METOPROLOL TART IMMED RELEASE 50 MG TABLET PO SCH ×2 (08:13→20:45)
[2020-07-14] MEDS: MAGNESIUM OXIDE 400 MG TABLET PO SCH ×3 (08:13→20:46)
[2020-07-14] MEDS: FOLIC ACID 1 MG TABLET PO SCH (08:13)
[2020-07-14] MEDS: LOSARTAN 50 MG TABLET. PO SCH (08:13)
[2020-07-14] MEDS: AMOXICILLIN/K CLAV 500/125MG TABLET. PO SCH ×2 (08:14→20:44)
[2020-07-14] MEDS: THIAMINE 100 MG TABLET. PO SCH (08:14)
[2020-07-14] MEDS: LACTOBACILLUS RHAMNOSUS GG 1 CAPSULE. PO SCH ×2 (08:14→20:45)
[2020-07-14] MEDS: POTASSIUM CHLORIDE 20 MEQ TABLET.ER. PO SCH ×2 (08:14→08:16)
[2020-07-14] MEDS: [UNRECOGNIZED DRUG - OTHER] PO SCH (08:15)
[2020-07-14] MEDS: MULTIVITAMIN PO SCH (08:15)
[2020-07-14] MEDS: traZODone 50 MG TABLET. PO SCH ×2 (13:00→20:45)
--- NOTE | 2020-07-14 14:00 | NUR ---
Pt very drowsy this morning and slept in until after lunch. Pt refused to awaken for breakfast or lunch. Medications were crushed and placed in orange juice. Pt consumed approximately 50% of medications. 1300 Addendum: 07/14/20 at 1556 by COLETTE AYALA RN 1300 Trazodone held d/t pt's drowsiness. Pt woke up approximately 1300 and refused to keep his mask on. Pt also attempting to ambulate using bedside table. Pt taken to the shower where he was compliant with intermittent episodes of yelling out and swinging at staff. Pt taken to the [facility] where he is currently sitting calmly.
[2020-07-14 15:02] VITALS: BP 149/81
--- NOTE | 2020-07-14 15:57 | NUR ---
Spoke with Dr. Sutton regarding pt's 5.3 K lab. Orders received to D/C Potassium and BMP on 07/17.
[2020-07-14] MEDS: MELATONIN 3 MG TABLET PO SCH (20:44)
[2020-07-14] MEDS: risperiDONE 0.5 MG TABLET. PO SCH (20:45)
[2020-07-14] MEDS: MIRTAZAPINE 7.5 MG TABLET. PO SCH (20:45)
--- NOTE | 2020-07-14 22:40 | PDOC ---
Exam Note: Taurus Note: Please also refer to the separate dictated note~for this date of service dictated separately.~Patient seen individually. Discussed the patient with Nursing staff reviewed the chart.~Reviewed interim history and current functioning. Reviewed vital signs,~Labs/ Radiology~and current medications noted below. Continue current treatment with the changes noted in the dictated addendum note Assessment: Vital Signs/I&O: Vital Signs Date Time Temp Pulse Resp B/P (MAP) Pulse Ox O2 Delivery O2 Flow Rate FiO2 07/14/20 20:45 72 149/81 07/14/20 15:02 96.6 17 100 Room Air I & O 07/13/20 07/13/20 07/14/20 14:59 22:59 06:59 Intake Total 420 ml 680 ml Balance 420 ml 680 ml Current Medications: I have reviewed the current psychotropics carefully including drug interactions. Risk benefit ratio favors no change other than as noted in my dictated progress note. Diagnosis: Problems: (1) Impulse control disorder, unspecified (2) Anxiety disorder, unspecified (3) Dementia, vascular, with depression (4) Dementia, vascular, with delusions (5) Major neurocognitive disorder (6) Major neurocognitive disorder, due to vascular disease, with behavioral disturbance, mild (7) History of alcohol dependence TL SAMUEL MD Jul 14, 2020 22:40
--- NOTE | 2020-07-15 01:41 | NUR ---
Last evening pt walked or sat in the hallway. At times he would converse with unseen people. Meds were given crushed in pudding then after wards he was put to bed and has been sleeping fairly well. He was cooperative with [facility].
[2020-07-15 05:54] VITALS: BP 156/67
--- NOTE | 2020-07-15 06:30 | PDOC ---
Exam Note: Taurus Note: This note is a late entry for 07/14/2020 covers elements not covered in my initial note. Subjective: The patient was reviewed on telehealth rounds in the evening of 07/14/2020 with Jenna MOREL. Discussed with nursing staff, reviewed the chart. The patient slept 6-1/2 hours previous night. The patient has been quite sedated during this day. He slept through breakfast and lunch. The 1300 trazodone and 12.5 mg was held as a consequence of this. Later he did have shower, was much more awake. Review of Systems: Ambulation impaired with walker. No CV, , pulmonary, eye system symptoms on review. Mental Status Exam: Oriented to himself. The patient is less agitated, disruptive, aggressive, not banging his walker against the doors. Insight and judgment, recent and remote memory, attention and concentration, fund of knowledge is poor consistent with his diagnoses. Laboratory Data: Reviewed. 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 Anxiety disorder unspecified. Plan: No change from initial note. Assessment: Vital Signs/I&O: Vital Signs Date Time Temp Pulse Resp B/P (MAP) Pulse Ox O2 Delivery O2 Flow Rate FiO2 07/15/20 05:54 96.8 70 16 156/67 (96) 100 07/14/20 15:02 Room Air l I & O 07/14/20 07/14/20 07/15/20 15:00 23:00 07:00 Intake Total 120 ml 120 ml Balance 120 ml 120 ml Current Medications: I have reviewed the current psychotropics carefully including drug interactions. Risk benefit ratio favors no change other than as noted in my dictated progress note. Diagnosis: Problems: (1) Impulse control disorder, unspecified (2) Anxiety disorder, unspecified (3) Dementia, vascular, with depression (4) Dementia, vascular, with delusions (5) Major neurocognitive disorder (6) Major neurocognitive disorder, due to vascular disease, with behavioral disturbance, mild TL SAMUEL MD Jul 15, 2020 06:30
[2020-07-15] MEDS: LACTOBACILLUS RHAMNOSUS GG 1 CAPSULE. PO SCH ×2 (08:26→20:24)
[2020-07-15] MEDS: LOSARTAN 50 MG TABLET. PO SCH (08:26)
[2020-07-15] MEDS: AMOXICILLIN/K CLAV 500/125MG TABLET. PO SCH ×2 (08:26→20:25)
[2020-07-15] MEDS: FOLIC ACID 1 MG TABLET PO SCH (08:28)
[2020-07-15] MEDS: THIAMINE 100 MG TABLET. PO SCH (08:28)
[2020-07-15] MEDS: risperiDONE 0.25 MG TABLET. PO SCH (08:28)
[2020-07-15] MEDS: METOPROLOL TART IMMED RELEASE 50 MG TABLET PO SCH ×2 (08:28→20:25)
[2020-07-15] MEDS: VALPROATE ACID 250 MG/5 ML ORAL SOLUTION PO SCH ×2 (08:28→18:02)
[2020-07-15] MEDS: MAGNESIUM OXIDE 400 MG TABLET PO SCH ×3 (08:28→20:24)
[2020-07-15] MEDS: NYSTATIN 100,000 UNIT/GM TOPICAL CREAM 15GM TUBE. TP SCH ×2 (08:29→20:26)
[2020-07-15] MEDS: MULTIVITAMIN PO SCH (08:29)
[2020-07-15] MEDS: [UNRECOGNIZED DRUG - OTHER] PO SCH (08:29)
[2020-07-15 15:50] VITALS: BP 123/69
--- NOTE | 2020-07-15 18:32 | NUR ---
Pt slept thru breakfast and lunch. Up in afternoon. Confused. Using bedside table as walker. Has been redirectable with encouragement. Meds taken dissolved in boost. Nonsensical and sing song speech in afternoon.
[2020-07-15] MEDS: risperiDONE 0.5 MG TABLET. PO SCH (20:24)
[2020-07-15] MEDS: traZODone 50 MG TABLET. PO SCH (20:24)
[2020-07-15] MEDS: MELATONIN 3 MG TABLET PO SCH (20:24)
[2020-07-15] MEDS: MIRTAZAPINE 7.5 MG TABLET. PO SCH (20:25)
--- NOTE | 2020-07-15 21:54 | PDOC ---
Exam Note: Taurus Note: Please also refer to the separate dictated note~for this date of service dictated separately.~Patient seen individually. Discussed the patient with Nursing staff reviewed the chart.~Reviewed interim history and current functioning. Reviewed vital signs,~Labs/ Radiology~and current medications noted below. Continue current treatment with the changes noted in the dictated addendum note Assessment: Vital Signs/I&O: Vital Signs Date Time Temp Pulse Resp B/P (MAP) Pulse Ox O2 Delivery O2 Flow Rate FiO2 07/15/20 20:25 74 123/69 07/15/20 15:50 97.9 18 96 07/14/20 15:02 Room Air I & O 07/14/20 07/14/20 07/15/20 15:00 23:00 07:00 Intake Total 120 ml 120 ml Balance 120 ml 120 ml Current Medications: I have reviewed the current psychotropics carefully including drug interactions. Risk benefit ratio favors no change other than as noted in my dictated progress note. Diagnosis: Problems: (1) Impulse control disorder, unspecified (2) Anxiety disorder, unspecified (3) Dementia, vascular, with depression (4) Dementia, vascular, with delusions (5) Major neurocognitive disorder (6) Major neurocognitive disorder, due to vascular disease, with behavioral disturbance, mild (7) History of alcohol dependence TL SAMUEL MD Jul 15, 2020 21:54
--- NOTE | 2020-07-15 23:40 | NUR ---
Pt located in his room this evening. Compliant with medications crushed in ice cream. Pt has been restless intermittently and yelling out occasionally.
[2020-07-16] MEDS: traZODone 50 MG TABLET. PO SCH (00:16)
--- NOTE | 2020-07-16 01:41 | NUR ---
Pt was observed on initial interaction to be sitting in chair inside room with brief on sideways and no pants. I assisted pt with a new brief by starting his legs before giving him the walker to stand up. Pt stood and allowed me to remove the old brief (wet) and pull new brief up in correct position. Observed pt to be dribbling constant flow of urine from penis. Notified RN. Pt was in room all of PM shift and was walking around with walker before allowing me to assist him getting into bed. Pt was not verbally abusive and responded appropriately when I interacted with him. Pt was later observed climbing out of bed and I assisted him with a new brief as his was soiled with urine. Pt was cooperative with [facility].
[2020-07-16 05:56] VITALS: BP 153/77
--- NOTE | 2020-07-16 05:58 | NUR ---
Pt has only slept 2 hours throughout the night. Pt has been yelling out/delusional/ hallucinating. Repeat Trazodone and Zyprexa administered at 0020 with little effect. Pt currently awake and restless in bed.
--- NOTE | 2020-07-16 06:55 | PDOC ---
Exam Note: Taurus Note: This note is a late entry for 07/15/2020 covers elements not covered in my initial note. Subjective: The patient was reviewed on telehealth rounds in the evening of 07/15/2020 with Jenan MOREL. Discussed with nursing staff, reviewed the chart. The patient slept 6-1/2 hours previous night. We will go ahead and stop the trazodone 12.5 mg at 1300 due to his daytime sedation. He slept through breakfast and lunch, then he was up and did take a shower, still somewhat abrasive, confused. Review of Systems: Ambulation impaired with walker. No CV, , pulmonary, eye system symptoms on review. Reliability poor. Mental Status Exam: Oriented to himself. Insight and judgment, recent and remote memory, attention and concentration, fund of knowledge is poor consistent with his diagnoses mentioned in my initial note. Laboratory Data: Reviewed. 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 Anxiety disorder unspecified. Impulse control disorder unspecified. Plan: No change from initial note. Assessment: Vital Signs/I&O: Vital Signs Date Time Temp Pulse Resp B/P (MAP) Pulse Ox O2 Delivery O2 Flow Rate FiO2 07/16/20 05:56 97.1 71 16 153/77 (102) 97 07/14/20 15:02 Room Air I & O 07/15/20 07/15/20 07/16/20 15:00 23:00 07:00 Intake Total 240 ml 420 ml 240 ml Balance 240 ml 420 ml 240 ml Current Medications: I have reviewed the current psychotropics carefully including drug interactions. Risk benefit ratio favors no change other than as noted in my dictated progress note. Diagnosis: Problems: (1) Impulse control disorder, unspecified (2) Anxiety disorder, unspecified (3) Dementia, vascular, with depression (4) Dementia, vascular, with delusions (5) Major neurocognitive disorder (6) Major neurocognitive disorder, due to vascular disease, with behavioral disturbance, mild LT SAMUEL MD Jul 16, 2020 06:55
[2020-07-16] MEDS: THIAMINE 100 MG TABLET. PO SCH (08:30)
[2020-07-16] MEDS: METOPROLOL TART IMMED RELEASE 50 MG TABLET PO SCH ×2 (08:30→20:33)
[2020-07-16] MEDS: AMOXICILLIN/K CLAV 500/125MG TABLET. PO SCH ×2 (08:30→20:34)
[2020-07-16] MEDS: LOSARTAN 50 MG TABLET. PO SCH (08:31)
[2020-07-16] MEDS: FOLIC ACID 1 MG TABLET PO SCH (08:31)
[2020-07-16] MEDS: risperiDONE 0.25 MG TABLET. PO SCH (08:31)
[2020-07-16] MEDS: LACTOBACILLUS RHAMNOSUS GG 1 CAPSULE. PO SCH ×2 (08:31→20:33)
[2020-07-16] MEDS: MAGNESIUM OXIDE 400 MG TABLET PO SCH ×3 (08:31→20:34)
[2020-07-16] MEDS: VALPROATE ACID 250 MG/5 ML ORAL SOLUTION PO SCH ×2 (08:32→17:00)
[2020-07-16] MEDS: NYSTATIN 100,000 UNIT/GM TOPICAL CREAM 15GM TUBE. TP SCH (08:33)
[2020-07-16] MEDS: MULTIVITAMIN PO SCH (08:35)
[2020-07-16] MEDS: [UNRECOGNIZED DRUG - OTHER] PO SCH (08:35)
--- NOTE | 2020-07-16 15:30 | NUR ---
Pt noted to have large amount of off white liquid in inside front of brief. Inspected penis and no drainage was able to be milked from urethral opening.Pt has history of pouring liquids down front of brief and pr did have a vanilla boost for lunch. Will continue to mintor and will inform dr if necessary.
[2020-07-16 16:26] VITALS: BP 113/66
--- NOTE | 2020-07-16 17:07 | NUR ---
Pt up for meals. Yells out intermittently. Resistive with pull up changes but has not been combative. Meds taken in boost.
[2020-07-16] MEDS: MELATONIN 3 MG TABLET PO SCH (20:34)
[2020-07-16] MEDS: risperiDONE 0.5 MG TABLET. PO SCH (20:35)
[2020-07-16] MEDS: MIRTAZAPINE 15 MG TABLET PO SCH (20:36)
--- NOTE | 2020-07-16 22:12 | PDOC ---
Exam Note: Taurus Note: Please also refer to the separate dictated note~for this date of service dictated separately.~Patient seen individually. Discussed the patient with Nursing staff reviewed the chart.~Reviewed interim history and current functioning. Reviewed vital signs,~Labs/ Radiology~and current medications noted below. Continue current treatment with the changes noted in the dictated addendum note Assessment: Vital Signs/I&O: Vital Signs Date Time Temp Pulse Resp B/P (MAP) Pulse Ox O2 Delivery O2 Flow Rate FiO2 07/16/20 20:33 69 113/66 07/16/20 16:26 97.6 18 99 07/14/20 15:02 Room Air I & O 07/15/20 07/15/20 07/16/20 15:00 23:00 07:00 Intake Total 240 ml 420 ml 240 ml Balance 240 ml 420 ml 240 ml Current Medications: Meds: Current Medications Medications (Trade) Dose Ordered Sig/Lit Route PRN Reason Start Time Stop Time Status Last Admin Dose Admin Mirtazapine (Remeron) 15 mg QHS PO 07/16/20 21:00 07/16/20 20:36 I have reviewed the current psychotropics carefully including drug interactions. Risk benefit ratio favors no change other than as noted in my dictated progress note. Diagnosis: Problems: (1) Impulse control disorder, unspecified (2) Anxiety disorder, unspecified (3) Dementia, vascular, with depression (4) Dementia, vascular, with delusions (5) Major neurocognitive disorder (6) Major neurocognitive disorder, due to vascular disease, with behavioral disturbance, mild TL SAMUEL MD Jul 16, 2020 22:12
--- NOTE | 2020-07-17 00:53 | NUR ---
Nursing Note Pt in his room singing and yelling out. Confused this pm, speaks in a word salad, words are jumbled out. Not combative or agitated. Meds given in ice cream compliant and cooperative with eating the ice cream.
[2020-07-17 06:28] VITALS: BP 122/67
--- NOTE | 2020-07-17 06:47 | PDOC ---
Exam Note: Taurus Note: This note is a late entry for 07/16/2020 covers elements not covered in my initial note. Subjective: The patient was reviewed on telehealth rounds in the evening of 07/16/2020 with Corby MOREL. Discussed with nursing staff, reviewed the chart. Per Teresa MOREL, the patient slept 2 hours previous night. He sleeps off and on during the day. He has been somewhat more irritable, anxious, dismissive today on telehealth rounds. Review of Systems: Ambulation impaired with walker. No CV, , pulmonary, eye system symptoms on review. Mental Status Exam: Oriented to himself. Insight and judgment, recent and remote memory, attention and concentration, fund of knowledge is poor consistent with his diagnoses mentioned in my initial note. Laboratory Data: Reviewed. 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 Anxiety disorder unspecified. Impulse control disorder unspecified. Plan: No change from initial note but we will increase the Remeron from 7.5 mg h.s. to 15 mg h.s. Assessment: Vital Signs/I&O: Vital Signs Date Time Temp Pulse Resp B/P (MAP) Pulse Ox O2 Delivery O2 Flow Rate FiO2 07/17/20 06:28 97.3 70 18 122/67 (85) 98 07/14/20 15:02 Room Air I & O 07/16/20 07/16/20 07/17/20 15:00 23:00 07:00 Intake Total 600 ml 60 ml 120 ml Balance 600 ml 60 ml 120 ml Current Medications: Meds: Current Medications Medications (Trade) Dose Ordered Sig/Lit Route PRN Reason Start Time Stop Time Status Last Admin Dose Admin Mirtazapine (Remeron) 15 mg QHS PO 07/16/20 21:00 07/16/20 20:36 I have reviewed the current psychotropics carefully including drug interactions. Risk benefit ratio favors no change other than as noted in my dictated progress note. Diagnosis: Problems: (1) Impulse control disorder, unspecified (2) Anxiety disorder, unspecified (3) Dementia, vascular, with depression (4) Dementia, vascular, with delusions (5) Major neurocognitive disorder (6) Major neurocognitive disorder, due to vascular disease, with behavioral disturbance, mild TL SAMUEL MD Jul 17, 2020 06:47
[2020-07-17 08:03] LABS: CALCIUM 8.7 mg/dL (8.5-10.1); CREATININE 1.1 mg/dL (0.7-1.3); GFR 64.1; POTASSIUM 3.9 mmol/L (3.5-5.1)
[2020-07-17] MEDS: risperiDONE 0.25 MG TABLET. PO SCH (08:22)
[2020-07-17] MEDS: THIAMINE 100 MG TABLET. PO SCH (08:22)
[2020-07-17] MEDS: METOPROLOL TART IMMED RELEASE 50 MG TABLET PO SCH ×3 (08:23→21:00)
[2020-07-17] MEDS: FOLIC ACID 1 MG TABLET PO SCH (08:23)
[2020-07-17] MEDS: LOSARTAN 50 MG TABLET. PO SCH (08:23)
[2020-07-17] MEDS: LACTOBACILLUS RHAMNOSUS GG 1 CAPSULE. PO SCH ×3 (08:23→21:00)
[2020-07-17] MEDS: MAGNESIUM OXIDE 400 MG TABLET PO SCH ×4 (08:23→21:00)
[2020-07-17] MEDS: AMOXICILLIN/K CLAV 500/125MG TABLET. PO SCH ×3 (08:23→21:00)
[2020-07-17] MEDS: VALPROATE ACID 250 MG/5 ML ORAL SOLUTION PO SCH ×2 (08:24→16:57)
[2020-07-17] MEDS: [UNRECOGNIZED DRUG - OTHER] PO SCH (08:25)
[2020-07-17] MEDS: MULTIVITAMIN PO SCH (08:25)
--- NOTE | 2020-07-17 11:15 | NUR ---
Nursing note: Pt in his room for morning med pass. He was sleeping, but awakened easily. He was compliant in taking his meds crushed and mixed in orange juice. Pt has been sleeping for most of the morning. Will continue to monitor.
[2020-07-17 15:50] VITALS: BP 92/58
[2020-07-17] MEDS: MELATONIN 3 MG TABLET PO SCH ×2 (19:52→21:00)
[2020-07-17] MEDS: traZODone 50 MG TABLET. PO SCH ×2 (19:52→21:00)
[2020-07-17] MEDS: MIRTAZAPINE 15 MG TABLET PO SCH ×2 (19:53→21:00)
[2020-07-17] MEDS: risperiDONE 0.5 MG TABLET. PO SCH ×2 (19:53→21:00)
--- NOTE | 2020-07-17 22:01 | PDOC ---
Exam Note: Taurus Note: Please also refer to the separate dictated note~for this date of service dictated separately.~Patient seen individually. Discussed the patient with Nursing staff reviewed the chart.~Reviewed interim history and current functioning. Reviewed vital signs,~Labs/ Radiology~and current medications noted below. Continue current treatment with the changes noted in the dictated addendum note Assessment: Vital Signs/I&O: Vital Signs Date Time Temp Pulse Resp B/P (MAP) Pulse Ox O2 Delivery O2 Flow Rate FiO2 07/17/20 19:53 74 117/81 07/17/20 15:50 97.9 18 98 07/14/20 15:02 Room Air I & O 07/16/20 07/16/20 07/17/20 15:00 23:00 07:00 Intake Total 600 ml 60 ml 120 ml Balance 600 ml 60 ml 120 ml Labs: Laboratory Tests Test 07/17/20 06:38 Sodium Level 142 mmol/L (136-145) Potassium Level 3.9 mmol/L (3.5-5.1) Chloride Level 109 mmol/L (98-107) H Carbon Dioxide Level 24 mmol/L (21-32) Anion Gap 9 (6-14) Blood Urea Nitrogen 27 mg/dL (8-26) H Creatinine 1.1 mg/dL (0.7-1.3) Estimated GFR (Cockcroft-Gault) 64.1 Glucose Level 77 mg/dL (70-99) Calcium Level 8.7 mg/dL (8.5-10.1) Current Medications: I have reviewed the current psychotropics carefully including drug interactions. Risk benefit ratio favors no change other than as noted in my dictated progress note. Diagnosis: Problems: (1) Impulse control disorder, unspecified (2) Anxiety disorder, unspecified (3) Dementia, vascular, with depression (4) Dementia, vascular, with delusions (5) Major neurocognitive disorder (6) Major neurocognitive disorder, due to vascular disease, with behavioral disturbance, mild TL SAMUEL MD Jul 17, 2020 22:01
--- NOTE | 2020-07-17 22:32 | NUR ---
Nursing Note Pt still asleep, meds held secondary to pt being asleep the entire day today. Awakens a tiny bit voice but otherwise is very drowsy. Will hold meds and assess the need for them later in the shift.
[2020-07-18 06:30] VITALS: BP 115/75
[2020-07-18] MEDS: LOSARTAN 50 MG TABLET. PO SCH (08:12)
[2020-07-18] MEDS: MULTIVITAMIN PO SCH (08:12)
[2020-07-18] MEDS: [UNRECOGNIZED DRUG - OTHER] PO SCH (08:12)
[2020-07-18] MEDS: risperiDONE 0.25 MG TABLET. PO SCH (08:13)
[2020-07-18] MEDS: METOPROLOL TART IMMED RELEASE 50 MG TABLET PO SCH ×2 (08:13→19:44)
[2020-07-18] MEDS: LACTOBACILLUS RHAMNOSUS GG 1 CAPSULE. PO SCH ×2 (08:13→19:43)
[2020-07-18] MEDS: THIAMINE 100 MG TABLET. PO SCH (08:13)
[2020-07-18] MEDS: AMOXICILLIN/K CLAV 500/125MG TABLET. PO SCH ×2 (08:13→19:43)
[2020-07-18] MEDS: FOLIC ACID 1 MG TABLET PO SCH (08:13)
[2020-07-18] MEDS: MAGNESIUM OXIDE 400 MG TABLET PO SCH ×3 (08:13→19:44)
[2020-07-18] MEDS: VALPROATE ACID 250 MG/5 ML ORAL SOLUTION PO SCH ×2 (08:22→16:59)
--- NOTE | 2020-07-18 09:44 | NUR ---
Nursing note: Pt awake at shift change and has remained up through breakfast. He was compliant with his meds crushed and mixed in orange juice. Pt is currently sitting in his room. Will continue to monitor.
--- NOTE | 2020-07-18 16:00 | NUR ---
Patient has spent most of the late morning and early afternoon sitting in the hallway, delusional and hallucinating. HE has joined in conversations staff were having with his room mate, answering questions inappropriately. He has repeatedly turned his head as if watching people walk past him when no one is in the hyde and had short conversations with some of the people he sees. Patient will occasionally stand up and walk, he is currently telling the door to the day room that he wants to talk to his boss. Will continue to monitor and report to oncoming shift.
[2020-07-18 16:07] VITALS: BP 159/80
[2020-07-18] MEDS: risperiDONE 0.5 MG TABLET. PO SCH (19:43)
[2020-07-18] MEDS: traZODone 50 MG TABLET. PO SCH (19:43)
[2020-07-18] MEDS: MIRTAZAPINE 15 MG TABLET PO SCH (19:43)
[2020-07-18] MEDS: MELATONIN 3 MG TABLET PO SCH (19:44)
--- NOTE | 2020-07-18 21:05 | NUR ---
Nursing Note: Location of Patient during Assessment: Pt withdrawn to his room, lying in bed at shift change. Behaviors Mood and Affect this shift: Pt calm, confused, and disorganized, becomes slightly resistive with cares but has not been combative. Medication Compliant: Compliant with medications administered crushed in ice cream. Assessment Compliant: Cooperative and compliant with assessment. Straight cath UA obtained without difficulty this evening and sent to lab. Response After Interventions: Pt resting quietly in bed with eyes closed at this time.
[2020-07-18 21:11] LABS: COLOR,URINE YELLOW
[2020-07-18 21:12] LABS: BILIRUBIN,URINE NEG (NEG); CLARITY,URINE CLOUDY; GLUCOSE,URINE NEG (NEG); NITRITE,URINE POS (NEG); UROBILINOGEN,URINE 0.2 mg/dL (0.2 mg/dL)
[2020-07-18 21:18] LABS: BACTERIA,URINE MANY /HPF (0-FEW); WBC,URINE TNTC /HPF (0-4)
--- NOTE | 2020-07-18 21:46 | PDOC ---
Exam Note: Taurus Note: Please also refer to the separate dictated note~for this date of service dictated separately.~Patient seen individually. Discussed the patient with Nursing staff reviewed the chart.~Reviewed interim history and current functioning. Reviewed vital signs,~Labs/ Radiology~and current medications noted below. Continue current treatment with the changes noted in the dictated addendum note Assessment: Vital Signs/I&O: Vital Signs Date Time Temp Pulse Resp B/P (MAP) Pulse Ox O2 Delivery O2 Flow Rate FiO2 07/18/20 19:44 69 159/80 07/18/20 16:07 97.7 18 98 07/14/20 15:02 Room Air I & O 07/17/20 07/17/20 07/18/20 15:00 23:00 07:00 Intake Total 480 ml 420 ml Balance 480 ml 420 ml Labs: Laboratory Tests Test 07/18/20 20:33 Urine Collection Type U cath Urine Color Yellow Urine Clarity Cloudy Urine pH 7.0 Urine Specific [place] 1.020 Urine Protein >100 mg/dl (NEG-TRACE) Urine Glucose (UA) Neg mg/dL (NEG) Urine Ketones (Stick) Trace mg/dL (NEG) Urine Blood Mod (NEG) Urine Nitrite Pos (NEG) Urine Bilirubin Neg (NEG) Urine Urobilinogen Dipstick 0.2 mg/dL (0.2 mg/dL) Urine Leukocyte Esterase Large (NEG) Urine RBC 11-20 /HPF (0-2) Urine WBC Tntc /HPF (0-4) Urine Bacteria Many /HPF (0-FEW) Current Medications: Meds: Current Medications Medications (Trade) Dose Ordered Sig/Lit Route PRN Reason Start Time Stop Time Status Last Admin Dose Admin Valproic Acid (Depakene) 250 mg DAILY PO 07/18/20 09:00 07/18/20 08:22 Valproic Acid (Depakene) 1,000 mg 1700 PO 07/18/20 17:00 07/18/20 16:59 I have reviewed the current psychotropics carefully including drug interactions. Risk benefit ratio favors no change other than as noted in my dictated progress note. Diagnosis: Problems: (1) Impulse control disorder, unspecified (2) Anxiety disorder, unspecified (3) Dementia, vascular, with depression (4) Dementia, vascular, with delusions (5) Major neurocognitive disorder (6) Major neurocognitive disorder, due to vascular disease, with behavioral disturbance, mild TL SAMUEL MD Jul 18, 2020 21:46
[2020-07-19 06:04] VITALS: BP 121/70
--- NOTE | 2020-07-19 07:04 | PDOC ---
Exam Note: [place]aurus Note: This note is a late entry for 07/17/2020 covers elements not covered in my initial note. Subjective: The patient was reviewed on telehealth rounds in the evening of 07/17/2020 with Maddy MOREL. Discussed with nursing staff, reviewed the chart. The patient slept 6-3/4 hours previous night. He has been sedated all day, ate some lunch. Given his sedation, we will change the Depakene liquid from 500 mg a.m. and 750 mg h.s. to 250 mg a.m. and 1000 mg h.s. Check CBC, CMP, valproic acid level in 3 days. Review of Systems: Ambulation impaired with walker. No CV, , pulmonary, eye system symptoms on review. Mental Status Exam: Oriented to himself. Insight and judgment, recent and remote memory, attention and concentration, fund of knowledge is poor consistent with his diagnoses. He is hard of hearing which makes the communication even more difficult. Laboratory Data: Reviewed. 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 Anxiety disorder unspecified. Impulse control disorder unspecified. Plan: No change from initial note. Assessment: Vital Signs/I&O: Vital Signs Date Time Temp Pulse Resp B/P (MAP) Pulse Ox O2 Delivery O2 Flow Rate FiO2 07/19/20 06:04 97.9 71 18 121/70 (87) 98 07/14/20 15:02 Room Air I & O 07/18/20 07/18/20 07/19/20 15:00 23:00 07:00 Intake Total 1116 ml 520 ml Balance 1116 ml 520 ml Labs: Laboratory Tests Test 07/18/20 20:33 Urine Collection Type U cath Urine Color Yellow Urine Clarity Cloudy Urine pH 7.0 Urine Specific [place] 1.020 Urine Protein >100 mg/dl (NEG-TRACE) Urine Glucose (UA) Neg mg/dL (NEG) Urine Ketones (Stick) Trace mg/dL (NEG) Urine Blood Mod (NEG) Urine Nitrite Pos (NEG) Urine Bilirubin Neg (NEG) Urine Urobilinogen Dipstick 0.2 mg/dL (0.2 mg/dL) Urine Leukocyte Esterase Large (NEG) Urine RBC 11-20 /HPF (0-2) Urine WBC Tntc /HPF (0-4) Urine Bacteria Many /HPF (0-FEW) Current Medications: Meds: Current Medications Medications (Trade) Dose Ordered Sig/Lit Route PRN Reason Start Time Stop Time Status Last Admin Dose Admin Valproic Acid (Depakene) 250 mg DAILY PO 07/18/20 09:00 07/18/20 08:22 Valproic Acid (Depakene) 1,000 mg 1700 PO 07/18/20 17:00 07/18/20 16:59 I have reviewed the current psychotropics carefully including drug interactions. Risk benefit ratio favors no change other than as noted in my dictated progress note. Diagnosis: Problems: (1) Impulse control disorder, unspecified (2) Anxiety disorder, unspecified (3) Dementia, vascular, with depression (4) Dementia, vascular, with delusions (5) Major neurocognitive disorder (6) Major neurocognitive disorder, due to vascular disease, with behavioral disturbance, mild TL SAMUEL MD Jul 19, 2020 07:04
--- NOTE | 2020-07-19 07:14 | PDOC ---
Exam Note: [place]aurus Note: This note is a late entry for 07/18/2020 covers elements not covered in my initial note. Subjective: The patient was reviewed on telehealth rounds in the evening of 07/18/2020 with Franky MOREL. Discussed with nursing staff, reviewed the chart. The patient slept 8-3/4 hours previous night. He was fairly quite in the morning but in the evening he was wandering into the room of other patients, intermittently hallucinating. We will check UA to rule out UTI since nursing staff indicated urine appeared somewhat thickened and sticky. Review of Systems: Ambulation impaired with walker. No CV, , pulmonary, eye system symptoms on review. Mental Status Exam: Oriented to himself. Insight and judgment, recent and remote memory, attention and concentration, fund of knowledge is poor consistent with his diagnoses mentioned in my initial note. Laboratory Data: Reviewed. 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 Anxiety disorder unspecified. Impulse control disorder unspecified. Plan: We will check UA to rule out UTI. Continue rest unchanged for now. Assessment: Vital Signs/I&O: Vital Signs Date Time Temp Pulse Resp B/P (MAP) Pulse Ox O2 Delivery O2 Flow Rate FiO2 07/19/20 06:04 97.9 71 18 121/70 (87) 98 07/14/20 15:02 Room Air I & O 07/18/20 07/18/20 07/19/20 15:00 23:00 07:00 Intake Total 1116 ml 520 ml Balance 1116 ml 520 ml Labs: Laboratory Tests Test 07/18/20 20:33 Urine Collection Type U cath Urine Color Yellow Urine Clarity Cloudy Urine pH 7.0 Urine Specific [place] 1.020 Urine Protein >100 mg/dl (NEG-TRACE) Urine Glucose (UA) Neg mg/dL (NEG) Urine Ketones (Stick) Trace mg/dL (NEG) Urine Blood Mod (NEG) Urine Nitrite Pos (NEG) Urine Bilirubin Neg (NEG) Urine Urobilinogen Dipstick 0.2 mg/dL (0.2 mg/dL) Urine Leukocyte Esterase Large (NEG) Urine RBC 11-20 /HPF (0-2) Urine WBC Tntc /HPF (0-4) Urine Bacteria Many /HPF (0-FEW) Current Medications: Meds: Current Medications Medications (Trade) Dose Ordered Sig/Lit Route PRN Reason Start Time Stop Time Status Last Admin Dose Admin Valproic Acid (Depakene) 250 mg DAILY PO 07/18/20 09:00 07/18/20 08:22 Valproic Acid (Depakene) 1,000 mg 1700 PO 07/18/20 17:00 07/18/20 16:59 I have reviewed the current psychotropics carefully including drug interactions. Risk benefit ratio favors no change other than as noted in my dictated progress note. Diagnosis: Problems: (1) Impulse control disorder, unspecified (2) Anxiety disorder, unspecified (3) Dementia, vascular, with depression (4) Dementia, vascular, with delusions (5) Major neurocognitive disorder (6) Major neurocognitive disorder, due to vascular disease, with behavioral disturbance, mild JIMMIETL SANTANA MD Jul 19, 2020 07:14
[2020-07-19] MEDS: [UNRECOGNIZED DRUG - OTHER] PO SCH ×2 (08:44→09:00)
[2020-07-19] MEDS: VALPROATE ACID 250 MG/5 ML ORAL SOLUTION PO SCH ×3 (08:44→16:34)
[2020-07-19] MEDS: MULTIVITAMIN PO SCH ×2 (08:44→09:00)
[2020-07-19] MEDS: LACTOBACILLUS RHAMNOSUS GG 1 CAPSULE. PO SCH ×3 (08:44→19:44)
[2020-07-19] MEDS: THIAMINE 100 MG TABLET. PO SCH ×2 (08:44→09:00)
[2020-07-19] MEDS: FOLIC ACID 1 MG TABLET PO SCH ×2 (08:45→09:00)
[2020-07-19] MEDS: MAGNESIUM OXIDE 400 MG TABLET PO SCH ×4 (08:45→19:45)
[2020-07-19] MEDS: METOPROLOL TART IMMED RELEASE 50 MG TABLET PO SCH ×3 (08:45→19:45)
[2020-07-19] MEDS: AMOXICILLIN/K CLAV 500/125MG TABLET. PO SCH ×3 (08:46→19:45)
[2020-07-19] MEDS: risperiDONE 0.25 MG TABLET. PO SCH ×2 (08:46→09:00)
[2020-07-19] MEDS: LOSARTAN 50 MG TABLET. PO SCH ×2 (08:46→09:00)
--- NOTE | 2020-07-19 12:09 | NUR ---
Nursing note: Pt has been sleeping all morning. He is able to be woken by voice, but grumbles and almost immediately falls back to sleep. AM meds were held. Will continue to monitor.
[2020-07-19 15:42] VITALS: BP 115/48
[2020-07-19] MEDS: MIRTAZAPINE 15 MG TABLET PO SCH (19:44)
[2020-07-19] MEDS: traZODone 50 MG TABLET. PO SCH (19:44)
[2020-07-19] MEDS: MELATONIN 3 MG TABLET PO SCH (19:49)
[2020-07-19] MEDS: risperiDONE 0.5 MG TABLET. PO SCH (19:49)
--- NOTE | 2020-07-19 20:39 | NUR ---
Nursing Note: Location of Patient during Assessment: Pt sitting in the hallway at shift change. Behaviors Mood and Affect this shift: Pt disorganized, restless, confused, and irritable. Pt wandered into another pt's room and became agitated when I attempted to re-direct him. He attempted to hit me and then began yelling. Another staff member came in to assist and pt was escorted to the West hallway. Pt sat in the chair and was able to de-escalate. Medication Compliant: Compliant with medications administered crushed in pudding. Assessment Compliant: Pt resistive with assessment. Response After Interventions: Pt currently sitting quietly in his chair.
--- NOTE | 2020-07-19 22:02 | PDOC ---
Exam Note: [place]aurus Note: Please also refer to the separate dictated note~for this date of service dictated separately.~Patient seen individually. Discussed the patient with Nursing staff reviewed the chart.~Reviewed interim history and current functioning. Reviewed vital signs,~Labs/ Radiology~and current medications noted below. Continue current treatment with the changes noted in the dictated addendum note Assessment: Vital Signs/I&O: Vital Signs Date Time Temp Pulse Resp B/P (MAP) Pulse Ox O2 Delivery O2 Flow Rate FiO2 07/19/20 21:01 96.9 96 07/19/20 19:45 86 125/61 07/19/20 15:42 17 07/14/20 15:02 Room Air I & O 07/18/20 07/18/20 07/19/20 15:00 23:00 07:00 Intake Total 1116 ml 520 ml Balance 1116 ml 520 ml Current Medications: Meds: Current Medications Medications (Trade) Dose Ordered Sig/Lit Route PRN Reason Start Time Stop Time Status Last Admin Dose Admin Risperidone (RisperDAL) 0.75 mg HS PO 07/19/20 21:00 07/19/20 19:49 I have reviewed the current psychotropics carefully including drug interactions. Risk benefit ratio favors no change other than as noted in my dictated progress note. Diagnosis: Problems: (1) Impulse control disorder, unspecified (2) Anxiety disorder, unspecified (3) Dementia, vascular, with depression (4) Dementia, vascular, with delusions (5) Major neurocognitive disorder (6) Major neurocognitive disorder, due to vascular disease, with behavioral disturbance, mild TL SAMUEL MD Jul 19, 2020 22:01
[2020-07-20] MEDS: traZODone 50 MG TABLET. PO PRN (01:10)
[2020-07-20 06:32] VITALS: BP 133/82
--- NOTE | 2020-07-20 07:42 | PDOC ---
Exam Note: [place]aurus Note: This note is a late entry for 07/19/2020 covers elements not covered in my initial note. Subjective: The patient was reviewed on telehealth rounds in the evening of 07/19/2020 with Maddy MOREL. Discussed with nursing staff, reviewed the chart. The patient slept 8-1/4 hours previous night. He did well at night. UA has reflex to C&S. We will await this and treat as indicated. He has been somewhat sedated all morning, slept in till 2.30 p.m. In the evening as I met with him on telehealth rounds, he was ambulating with a walker. We will change the Risperdal from 0.25 mg a.m. and 0.5 mg h.s. to 0.75 mg h.s. to avoid daytime sedation. Review of Systems: Ambulation impaired with walker. No CV, , pulmonary, eye system symptoms on review. Mental Status Exam: Oriented to himself. Insight and judgment, recent and remote memory, attention and concentration, fund of knowledge is poor consistent with his diagnoses mentioned in my initial note. Laboratory Data: Reviewed. 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 Anxiety disorder unspecified. Impulse control disorder unspecified. Plan: No change from initial note. UA has reflex to C&S. We will await this and treat as indicated. Assessment: Vital Signs/I&O: Vital Signs Date Time Temp Pulse Resp B/P (MAP) Pulse Ox O2 Delivery O2 Flow Rate FiO2 07/20/20 06:32 98.1 88 20 133/82 (99) 99 Room Air Current Medications: Meds: Current Medications Medications (Trade) Dose Ordered Sig/Lit Route PRN Reason Start Time Stop Time Status Last Admin Dose Admin Risperidone (RisperDAL) 0.75 mg HS PO 07/19/20 21:00 07/19/20 19:49 I have reviewed the current psychotropics carefully including drug interactions. Risk benefit ratio favors no change other than as noted in my dictated progress note. Diagnosis: Problems: (1) Impulse control disorder, unspecified (2) Anxiety disorder, unspecified (3) Dementia, vascular, with depression (4) Dementia, vascular, with delusions (5) Major neurocognitive disorder (6) Major neurocognitive disorder, due to vascular disease, with behavioral disturbance, mild (7) History of alcohol dependence TL SAMUEL MD Jul 20, 2020 07:42
[2020-07-20] MEDS: AMOXICILLIN/K CLAV 500/125MG TABLET. PO SCH (10:00)
[2020-07-20] MEDS: METOPROLOL TART IMMED RELEASE 50 MG TABLET PO SCH ×2 (10:00→21:07)
[2020-07-20] MEDS: FOLIC ACID 1 MG TABLET PO SCH (10:01)
[2020-07-20] MEDS: THIAMINE 100 MG TABLET. PO SCH (10:01)
[2020-07-20] MEDS: LACTOBACILLUS RHAMNOSUS GG 1 CAPSULE. PO SCH ×2 (10:01→21:08)
[2020-07-20] MEDS: LOSARTAN 50 MG TABLET. PO SCH (10:01)
[2020-07-20] MEDS: MAGNESIUM OXIDE 400 MG TABLET PO SCH ×3 (10:01→21:07)
[2020-07-20] MEDS: VALPROATE ACID 250 MG/5 ML ORAL SOLUTION PO SCH ×2 (10:01→17:17)
[2020-07-20] MEDS: MULTIVITAMIN PO SCH (10:02)
[2020-07-20] MEDS: [UNRECOGNIZED DRUG - OTHER] PO SCH (10:02)
--- NOTE | 2020-07-20 11:25 | NUR ---
WEEKLY ACTIVITY THERAPY NOTE Date of Admission:05/27 Date of AT Assessment:05/30 Precipitating behaviors that initiated intake and admission:Pt admitted to [facility] on 05/11 for rhabdo, delirium and DT's (60 yrs of ETOH). Pt sent [facility] 05/[facility] and was there for less than 24hrs d/t combative behaviors. Pt sent back to [facility] on 05/26 where he refused meds, cares, etc. Goal aimed:increase time management and socialization skills Initial Goal: Pt will participate in one group or individual Activity Therapy session per week. Weekly progress towards goal: did not achieve Group participation level: zero Weekly highlights: Behaviors observed: similar to last week, calm, greets staff walking by when he is greeted first, fails to wear mask appropriately Plan: no change to goal Beneficial adaptations:
--- NOTE | 2020-07-20 12:00 | TX PLAN ---
Interdisciplinary Tx Plan Admission Information May 27, 2020 at 22:24 Legal Status (on Admission): Voluntary DPOA/Guardian Name: Sara Arnold Contact Other Contact Name: [facility] Verified Code Status: DNR Allergies: Coded Allergies: No Known Drug Allergies (Unverified , 05/27/20) Diagnoses Primary Diagnosis: Dementia with BD Reasons for Admission: Agitated, Confusion/Disoriented Problem in Patient's Words: He has noticeably been decreasing in cognition and physical health over the last 6-8 months. Additional Admission Comments: The intake reports that pt is confused and agitated; but no other behaviors or scenarios noted. Problems Active Problems: Agitated Confusion Paranoid Inactive Problems: Mostly medication compliant Pt Strengths/Limitations Ability for [place]: Poor Cognitive Functioning/Ability: Poor Communication Skills/Ability: Fair Financial Resources: Fair Insight/Judgement: Poor Intellectual Ability: Fair Physical Health: Poor Social Skills: Fair Stability in Family: Good Stability in School/Work: Poor Verbal Skills: Fair Discharge Criteria Discharge Criteria: No need for close observ., Adequate arrangements @DC, Improved behavior, Improved mood/thought Preliminary Discharge Plan Preliminary DC Plan: Placement Needed Special Precautions Fall Risk: Moderate Initial D/C Plan Pt will need a higher level of care; not able to return to [facility] Identified Discharge Needs: Referrals to higher level of care Currently Utilized Resources Currently Utilized Resources/P: Primary Care Physician Referrals Community Resources: Referrals to [facility]/Memory Care facilities Identified Problems/Hx/Goals Objectives/Short-Term Goals Short Term Goals: Dec. Outbursts, Medication Stabilization, Monitor Med Effects, Promote Coping Skill, Other Short Term Goals in Patient's: N/A Interventions/Frequency Staff Interventions/Frequency&: Psychiatrist to assess pt at least 3x per week. Social Work to assess pt at least 2x per week. Nursing to monitor behavior, medications and complete 15 minute checks daily Encourage group participation in activities or 1:1 engagement based off activity dept assessment. 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 He lastly retired from [employer] in [place], [place]. Education: Masters in Education Community Follow-up Continue to follow-up with PCP Community Provider/Family Inpu: I just need help in finding him an appropriate place to go. He wants to go home but I just do not think it is safe right now. 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 Pt was up early this morning and had to spend time in the [place] in order to not wake anyone up. Pt slept yesterday until 1430 and was compliant with meds crushed in ice cream. Pt UA did return with a large amount of bacteria in his urine. It is probable that pt will be started on an ABX this afternoon. Referrals for placement has been sent out in hopes to get pt placement JOSE A. TAMMIE DEY Jul 20, 2020 12:00
--- NOTE | 2020-07-20 14:00 | NUR ---
Nursing note: Resumed pt care. Pt was up to eat lunch and has since been asleep in his bed. Will continue to monitor.
[2020-07-20 15:22] VITALS: BP 135/77
[2020-07-20] MEDS: MIRTAZAPINE 15 MG TABLET PO SCH (21:07)
[2020-07-20] MEDS: MELATONIN 3 MG TABLET PO SCH (21:07)
[2020-07-20] MEDS: traZODone 50 MG TABLET. PO SCH (21:08)
[2020-07-20] MEDS: risperiDONE 0.5 MG TABLET. PO SCH (21:08)
--- NOTE | 2020-07-20 21:56 | NUR ---
Pt. was observed in room sitting on bed and shuffling papers. Pt. was pleasant on interaction and responded appropriately when asked if he would like a snack this evening.
--- NOTE | 2020-07-20 22:00 | PDOC ---
Exam Note: Taurus Note: Please also refer to the separate dictated note~for this date of service dictated separately.~Patient seen individually. Discussed the patient with Nursing staff reviewed the chart.~Reviewed interim history and current functioning. Reviewed vital signs,~Labs/ Radiology~and current medications noted below. Continue current treatment with the changes noted in the dictated addendum note Assessment: Vital Signs/I&O: Vital Signs Date Time Temp Pulse Resp B/P (MAP) Pulse Ox O2 Delivery O2 Flow Rate FiO2 07/20/20 21:07 70 135/77 07/20/20 15:22 97.4 16 100 Room Air Current Medications: I have reviewed the current psychotropics carefully including drug interactions. Risk benefit ratio favors no change other than as noted in my dictated progress note. Diagnosis: Problems: (1) Impulse control disorder, unspecified (2) Anxiety disorder, unspecified (3) Dementia, vascular, with depression (4) Dementia, vascular, with delusions (5) Major neurocognitive disorder (6) Major neurocognitive disorder, due to vascular disease, with behavioral disturbance, mild TL SAMUEL MD Jul 20, 2020 22:00
[2020-07-21 06:24] VITALS: BP 133/70
--- NOTE | 2020-07-21 06:25 | NUR ---
Pt was given shower at approximately 0300. Pt was unable to maintain posture and required x2 assistance for transfer from bed to showerchair. Pt swung at staff member twice in shower slowly, I requested pt stand to clean posterior and pt was unable/unwilling to do so. Pt required x2 assistance to move from showerchair to bed.
[2020-07-21 08:18] LABS: BASO % 1 % (0-3); EOS % 1 % (0-3); HEMATOCRIT 27.2 % (39.0-53.0); HEMOGLOBIN 8.9 g/dL (13.0-17.5); LYMPH # 0.4 x10^3/uL (1.0-4.8); LYMPH % 20 % (24-48); MEAN CORPUSCULAR HEMOGLOBIN 32 pg (25-35); MEAN CORPUSCULAR HGB CONC 33 g/dL (31-37); MEAN CORPUSCULAR VOLUME 97 fL (79-100); MONO # 0.6 x10^3/uL (0.0-1.1); MONO % 30 % (0-9); NEUT % 49 % (31-73); PLATELET COUNT 106 x10^3/uL (140-400); RED CELL DISTRIBUTION WIDTH 15.4 % (11.5-14.5)
[2020-07-21 08:56] LABS: ALBUMIN 2.5 g/dL (3.4-5.0); ALBUMIN/GLOBULIN RATIO 0.6 (1.0-1.7); CALCIUM 9.1 mg/dL (8.5-10.1); CREATININE 1.2 mg/dL (0.7-1.3); POTASSIUM 4.1 mmol/L (3.5-5.1); TOTAL BILIRUBIN 0.4 mg/dL (0.2-1.0); TOTAL PROTEIN 6.4 g/dL (6.4-8.2)
[2020-07-21 09:00] LABS: VAL ACID 49 mcg/mL (50-100)
[2020-07-21] MEDS: [UNRECOGNIZED DRUG - OTHER] PO SCH (09:00)
[2020-07-21] MEDS: FOLIC ACID 1 MG TABLET PO SCH (09:00)
[2020-07-21] MEDS: THIAMINE 100 MG TABLET. PO SCH (09:00)
[2020-07-21] MEDS: MULTIVITAMIN PO SCH (09:00)
[2020-07-21] MEDS: MAGNESIUM OXIDE 400 MG TABLET PO SCH ×3 (09:00→20:28)
--- NOTE | 2020-07-21 10:10 | NUR ---
Patient still sleeping. Breakfast tray held, will give morning meds when he gets up.
[2020-07-21] MEDS: VALPROATE ACID 250 MG/5 ML ORAL SOLUTION PO SCH ×2 (13:35→17:23)
[2020-07-21] MEDS: LACTOBACILLUS RHAMNOSUS GG 1 CAPSULE. PO SCH ×2 (13:35→20:25)
[2020-07-21] MEDS: LOSARTAN 50 MG TABLET. PO SCH (13:35)
[2020-07-21] MEDS: METOPROLOL TART IMMED RELEASE 50 MG TABLET PO SCH ×2 (13:36→20:30)
[2020-07-21 14:13] LABS: % BANDS 7 % (0-9); % EOS 2 % (0-5); % LYMPHS 31 % (24-48); % MONOS 18 % (0-10); % SEGS 42 % (35-66)
[2020-07-21 14:14] LABS: PLT ESTIMATE DECREASED (ADEQUATE)
[2020-07-21 15:33] VITALS: BP 88/50
--- NOTE | 2020-07-21 17:00 | NUR ---
Patient was woke up for breakfast and lunch. He refused to eat. Medication given crushed in vanilla boost. Patient drank the boost. Patient brief changed x2 staff members, he did not resist and was more cooperative than on previous days. When vital signs were taken patients pressure was low, he was sleeping at the time. LENS CUTTER woke him up to check it again and he said "leave me alone".
--- NOTE | 2020-07-21 18:13 | NUR ---
Patient is up for dinner sitting on the side of his bed. He is taking his meat off the hamburger and placing it on the bed next to him. 1700 Valproate given in vanilla boost. Patient is very disorganized.
[2020-07-21] MEDS: MELATONIN 3 MG TABLET PO SCH (20:26)
[2020-07-21] MEDS: MIRTAZAPINE 15 MG TABLET PO SCH (20:27)
[2020-07-21] MEDS: traZODone 50 MG TABLET. PO SCH (20:28)
[2020-07-21] MEDS: risperiDONE 0.5 MG TABLET. PO SCH (20:30)
--- NOTE | 2020-07-21 21:59 | PDOC ---
Exam Note: Taurus Note: Please also refer to the separate dictated note~for this date of service dictated separately.~Patient seen individually. Discussed the patient with Nursing staff reviewed the chart.~Reviewed interim history and current functioning. Reviewed vital signs,~Labs/ Radiology~and current medications noted below. Continue current treatment with the changes noted in the dictated addendum note Assessment: Vital Signs/I&O: Vital Signs Date Time Temp Pulse Resp B/P (MAP) Pulse Ox O2 Delivery O2 Flow Rate FiO2 07/21/20 20:30 90 110/60 07/21/20 15:33 97.8 18 100 07/20/20 15:22 Room Air I & O 07/20/20 07/20/20 07/21/20 15:00 23:00 07:00 Intake Total 320 ml 240 ml Balance 320 ml 240 ml Labs: Laboratory Tests Test 07/21/20 08:00 White Blood Count 2.0 x10^3/uL (4.0-11.0) L Red Blood Count 2.80 x10^6/uL (4.30-5.70) L Hemoglobin 8.9 g/dL (13.0-17.5) L Hematocrit 27.2 % (39.0-53.0) L Mean Corpuscular Volume 97 fL (79-100) Mean Corpuscular Hemoglobin 32 pg (25-35) Mean Corpuscular Hemoglobin Concent 33 g/dL (31-37) Red Cell Distribution Width 15.4 % (11.5-14.5) H Platelet Count 106 x10^3/uL (140-400) L Neutrophils (%) (Auto) 49 % (31-73) Lymphocytes (%) (Auto) 20 % (24-48) L Monocytes (%) (Auto) 30 % (0-9) H Eosinophils (%) (Auto) 1 % (0-3) Basophils (%) (Auto) 1 % (0-3) Neutrophils # (Auto) 1.0 x10^3uL (1.8-7.7) L Lymphocytes # (Auto) 0.4 x10^3/uL (1.0-4.8) L Monocytes # (Auto) 0.6 x10^3/uL (0.0-1.1) Eosinophils # (Auto) 0.0 x10^3/uL (0.0-0.7) Basophils # (Auto) 0.0 x10^3/uL (0.0-0.2) Segmented Neutrophils % 42 % (35-66) Band Neutrophils % 7 % (0-9) Lymphocytes % 31 % (24-48) Monocytes % 18 % (0-10) H Eosinophils % 2 % (0-5) Platelet Estimate Decreased (ADEQUATE) Sodium Level 141 mmol/L (136-145) Potassium Level 4.1 mmol/L (3.5-5.1) Chloride Level 107 mmol/L (98-107) Carbon Dioxide Level 26 mmol/L (21-32) Anion Gap 8 (6-14) Blood Urea Nitrogen 30 mg/dL (8-26) H Creatinine 1.2 mg/dL (0.7-1.3) Estimated GFR (Cockcroft-Gault) 58.0 BUN/Creatinine Ratio 25 (6-20) H Glucose Level 93 mg/dL (70-99) Calcium Level 9.1 mg/dL (8.5-10.1) Total Bilirubin 0.4 mg/dL (0.2-1.0) Aspartate Amino Transferase (AST) 16 U/L (15-37) Alanine Aminotransferase (ALT) 12 U/L (16-63) L Alkaline Phosphatase 49 U/L (46-116) Total Protein 6.4 g/dL (6.4-8.2) Albumin 2.5 g/dL (3.4-5.0) L Albumin/Globulin Ratio 0.6 (1.0-1.7) L Valproic Acid Level 49 mcg/mL (50-100) L Valproic Acid Last Dose Date 07/20/2020 Valproic Acid Last Dose Time 1700 Current Medications: I have reviewed the current psychotropics carefully including drug interactions. Risk benefit ratio favors no change other than as noted in my dictated progress note. Diagnosis: Problems: (1) Impulse control disorder, unspecified (2) Anxiety disorder, unspecified (3) Dementia, vascular, with depression (4) Dementia, vascular, with delusions (5) Major neurocognitive disorder (6) Major neurocognitive disorder, due to vascular disease, with behavioral disturbance, mild JIMMIETL MD Jul 21, 2020 21:59
--- NOTE | 2020-07-21 23:59 | NUR ---
Patient is in his room on assumption of care, awake in bed. Disorganized, confused. He is compliant with assessments and medications given crushed in boost. No agitation. Does not appear to be experiencing any pain or discomfort. Patient is currently laying quietly in bed, awake. Will continue to monitor.
--- NOTE | 2020-07-22 02:16 | NUR ---
Pt. was mumbling inaudibly upon initial interaction. While attempting to provide incontinence care pt. was unable to stand on own accord, acquired assistance from nurse to assist pt. to standing position in order to change brief (soiled, urine) and move pt towards head of bed. With assistance of nurse laid pt in bed and applied blanket before raising rails, setting alarm, and turning off lights. Will continue to monitor and assess incontinence care.
[2020-07-22 05:00] VITALS: BP 127/72
--- NOTE | 2020-07-22 06:54 | PDOC ---
Exam Note: [place] Note: This note is a late entry for 07/20/2020 covers elements not covered in my initial note. Subjective: The patient was reviewed on telehealth rounds for treatment team meeting in the morning of 07/20/2020 with [facility] service staff and Franky RN. Also reviewed in the evening of 07/20/2020 with Franky RN. Discussed with nursing staff, reviewed the chart. The patient slept 5 hours previous night. He has been walking into others rooms. Day before he slept till 2.30 p.m. but he was up earlier today. UA shows bacteria. Review of Systems: Ambulation impaired with walker. No CV, , pulmonary, eye system symptoms on review. Mental Status Exam: Oriented to himself. Insight and judgment, recent and remote memory, attention and concentration, fund of knowledge is poor consistent with his diagnoses mentioned in my initial note. Laboratory Data: Reviewed. 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 Anxiety disorder unspecified. Impulse control disorder unspecified. Plan: No change from initial note. UA shows bacteria. Assessment: Vital Signs/I&O: Vital Signs Date Time Temp Pulse Resp B/P (MAP) Pulse Ox O2 Delivery O2 Flow Rate FiO2 07/22/20 05:00 97.0 76 16 127/72 (90) 100 Room Air I & O 07/21/20 07/21/20 07/22/20 15:00 23:00 07:00 Intake Total 360 ml 120 ml Balance 360 ml 120 ml Labs: Laboratory Tests Test 07/21/20 08:00 White Blood Count 2.0 x10^3/uL (4.0-11.0) L Red Blood Count 2.80 x10^6/uL (4.30-5.70) L Hemoglobin 8.9 g/dL (13.0-17.5) L Hematocrit 27.2 % (39.0-53.0) L Mean Corpuscular Volume 97 fL (79-100) Mean Corpuscular Hemoglobin 32 pg (25-35) Mean Corpuscular Hemoglobin Concent 33 g/dL (31-37) Red Cell Distribution Width 15.4 % (11.5-14.5) H Platelet Count 106 x10^3/uL (140-400) L Neutrophils (%) (Auto) 49 % (31-73) Lymphocytes (%) (Auto) 20 % (24-48) L Monocytes (%) (Auto) 30 % (0-9) H Eosinophils (%) (Auto) 1 % (0-3) Basophils (%) (Auto) 1 % (0-3) Neutrophils # (Auto) 1.0 x10^3uL (1.8-7.7) L Lymphocytes # (Auto) 0.4 x10^3/uL (1.0-4.8) L Monocytes # (Auto) 0.6 x10^3/uL (0.0-1.1) Eosinophils # (Auto) 0.0 x10^3/uL (0.0-0.7) Basophils # (Auto) 0.0 x10^3/uL (0.0-0.2) Segmented Neutrophils % 42 % (35-66) Band Neutrophils % 7 % (0-9) Lymphocytes % 31 % (24-48) Monocytes % 18 % (0-10) H Eosinophils % 2 % (0-5) Platelet Estimate Decreased (ADEQUATE) Sodium Level 141 mmol/L (136-145) Potassium Level 4.1 mmol/L (3.5-5.1) Chloride Level 107 mmol/L (98-107) Carbon Dioxide Level 26 mmol/L (21-32) Anion Gap 8 (6-14) Blood Urea Nitrogen 30 mg/dL (8-26) H Creatinine 1.2 mg/dL (0.7-1.3) Estimated GFR (Cockcroft-Gault) 58.0 BUN/Creatinine Ratio 25 (6-20) H Glucose Level 93 mg/dL (70-99) Calcium Level 9.1 mg/dL (8.5-10.1) Total Bilirubin 0.4 mg/dL (0.2-1.0) Aspartate Amino Transferase (AST) 16 U/L (15-37) Alanine Aminotransferase (ALT) 12 U/L (16-63) L Alkaline Phosphatase 49 U/L (46-116) Total Protein 6.4 g/dL (6.4-8.2) Albumin 2.5 g/dL (3.4-5.0) L Albumin/Globulin Ratio 0.6 (1.0-1.7) L Valproic Acid Level 49 mcg/mL (50-100) L Valproic Acid Last Dose Date 07/20/2020 Valproic Acid Last Dose Time 1700 Current Medications: I have reviewed the current psychotropics carefully including drug interactions. Risk benefit ratio favors no change other than as noted in my dictated progress note. Diagnosis: Problems: (1) Impulse control disorder, unspecified (2) Anxiety disorder, unspecified (3) Dementia, vascular, with depression (4) Dementia, vascular, with delusions (5) Major neurocognitive disorder (6) Major neurocognitive disorder, due to vascular disease, with behavioral disturbance, mild TL SAMUEL MD Jul 22, 2020 06:54
--- NOTE | 2020-07-22 07:05 | PDOC ---
Exam Note: [place] Note: This note is a late entry for 07/21/2020 covers elements not covered in my initial note. Subjective: The patient was reviewed on telehealth rounds in the evening of 07/21/2020 with Meaghan MOREL. Discussed with nursing staff, reviewed the chart. The patient slept 5-1/4 hours previous night. He is quite dismissive as I met with him on telehealth rounds in the evening. Valproic acid level is 49 due to intermittent compliance. He spends much time in bed. Review of Systems: Ambulation impaired with walker. No CV, , pulmonary, eye system symptoms on review. Mental Status Exam: Oriented to himself. Insight and judgment, recent and remote memory, attention and concentration, fund of knowledge is poor consistent with his diagnoses mentioned in my initial note. Laboratory Data: Reviewed. 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 Anxiety disorder unspecified. Impulse control disorder unspecified. Plan: No change from initial note. Assessment: Vital Signs/I&O: Vital Signs Date Time Temp Pulse Resp B/P (MAP) Pulse Ox O2 Delivery O2 Flow Rate FiO2 07/22/20 05:00 97.0 76 16 127/72 (90) 100 Room Air I & O 07/21/20 07/21/20 07/22/20 15:00 23:00 07:00 Intake Total 360 ml 120 ml Balance 360 ml 120 ml Labs: Laboratory Tests Test 07/21/20 08:00 White Blood Count 2.0 x10^3/uL (4.0-11.0) L Red Blood Count 2.80 x10^6/uL (4.30-5.70) L Hemoglobin 8.9 g/dL (13.0-17.5) L Hematocrit 27.2 % (39.0-53.0) L Mean Corpuscular Volume 97 fL (79-100) Mean Corpuscular Hemoglobin 32 pg (25-35) Mean Corpuscular Hemoglobin Concent 33 g/dL (31-37) Red Cell Distribution Width 15.4 % (11.5-14.5) H Platelet Count 106 x10^3/uL (140-400) L Neutrophils (%) (Auto) 49 % (31-73) Lymphocytes (%) (Auto) 20 % (24-48) L Monocytes (%) (Auto) 30 % (0-9) H Eosinophils (%) (Auto) 1 % (0-3) Basophils (%) (Auto) 1 % (0-3) Neutrophils # (Auto) 1.0 x10^3uL (1.8-7.7) L Lymphocytes # (Auto) 0.4 x10^3/uL (1.0-4.8) L Monocytes # (Auto) 0.6 x10^3/uL (0.0-1.1) Eosinophils # (Auto) 0.0 x10^3/uL (0.0-0.7) Basophils # (Auto) 0.0 x10^3/uL (0.0-0.2) Segmented Neutrophils % 42 % (35-66) Band Neutrophils % 7 % (0-9) Lymphocytes % 31 % (24-48) Monocytes % 18 % (0-10) H Eosinophils % 2 % (0-5) Platelet Estimate Decreased (ADEQUATE) Sodium Level 141 mmol/L (136-145) Potassium Level 4.1 mmol/L (3.5-5.1) Chloride Level 107 mmol/L (98-107) Carbon Dioxide Level 26 mmol/L (21-32) Anion Gap 8 (6-14) Blood Urea Nitrogen 30 mg/dL (8-26) H Creatinine 1.2 mg/dL (0.7-1.3) Estimated GFR (Cockcroft-Gault) 58.0 BUN/Creatinine Ratio 25 (6-20) H Glucose Level 93 mg/dL (70-99) Calcium Level 9.1 mg/dL (8.5-10.1) Total Bilirubin 0.4 mg/dL (0.2-1.0) Aspartate Amino Transferase (AST) 16 U/L (15-37) Alanine Aminotransferase (ALT) 12 U/L (16-63) L Alkaline Phosphatase 49 U/L (46-116) Total Protein 6.4 g/dL (6.4-8.2) Albumin 2.5 g/dL (3.4-5.0) L Albumin/Globulin Ratio 0.6 (1.0-1.7) L Valproic Acid Level 49 mcg/mL (50-100) L Valproic Acid Last Dose Date 07/20/2020 Valproic Acid Last Dose Time 1700 Current Medications: I have reviewed the current psychotropics carefully including drug interactions. Risk benefit ratio favors no change other than as noted in my dictated progress note. Diagnosis: Problems: (1) Impulse control disorder, unspecified (2) Anxiety disorder, unspecified (3) Dementia, vascular, with depression (4) Dementia, vascular, with delusions (5) Major neurocognitive disorder (6) Major neurocognitive disorder, due to vascular disease, with behavioral disturbance, mild (7) History of alcohol dependence TL SAMUEL MD Jul 22, 2020 07:05
[2020-07-22] MEDS: FOLIC ACID 1 MG TABLET PO SCH (09:00)
[2020-07-22] MEDS: VALPROATE ACID 250 MG/5 ML ORAL SOLUTION PO SCH ×2 (09:00→17:00)
[2020-07-22] MEDS: LOSARTAN 50 MG TABLET. PO SCH (09:00)
[2020-07-22] MEDS: MAGNESIUM OXIDE 400 MG TABLET PO SCH ×3 (09:00→22:12)
[2020-07-22] MEDS: LACTOBACILLUS RHAMNOSUS GG 1 CAPSULE. PO SCH ×2 (09:00→22:12)
[2020-07-22] MEDS: THIAMINE 100 MG TABLET. PO SCH (09:00)
[2020-07-22] MEDS: [UNRECOGNIZED DRUG - OTHER] PO SCH (09:00)
[2020-07-22] MEDS: MULTIVITAMIN PO SCH (09:00)
[2020-07-22] MEDS: METOPROLOL TART IMMED RELEASE 50 MG TABLET PO SCH ×2 (09:00→21:00)
--- NOTE | 2020-07-22 12:39 | NUR ---
Pt is calm, cooperative, and compliant. He is sleeping but arousable. No agitation, no aggression, no hallucinations, no delusions noted.
--- NOTE | 2020-07-22 14:46 | NUR ---
Spoke to Kay in the pharmacy regarding pharmacy consult and pts lab values.
[2020-07-22 15:00] VITALS: BP 113/69
[2020-07-22 15:43] LABS: BASO % 1 % (0-3); EOS % 1 % (0-3); HEMATOCRIT 27.3 % (39.0-53.0); LYMPH # 0.5 x10^3/uL (1.0-4.8); LYMPH % 23 % (24-48); MEAN CORPUSCULAR HEMOGLOBIN 32 pg (25-35); MEAN CORPUSCULAR HGB CONC 33 g/dL (31-37); MEAN CORPUSCULAR VOLUME 97 fL (79-100); MONO # 0.6 x10^3/uL (0.0-1.1); MONO % 26 % (0-9); NEUT # 1.1 x10^3uL (1.8-7.7); NEUT % 49 % (31-73); PLATELET COUNT 109 x10^3/uL (140-400); RED BLOOD COUNT 2.81 x10^6/uL (4.30-5.70); RED CELL DISTRIBUTION WIDTH 14.9 % (11.5-14.5); WHITE BLOOD COUNT 2.3 x10^3/uL (4.0-11.0)
[2020-07-22] MEDS: levoFLOXacin 750 MG TABLET PO SCH (17:09)
--- NOTE | 2020-07-22 21:59 | NUR ---
Pt speech very garbled on interaction (repeating questions, changing a word or two, mumbled). Did respond appropriate when asked if hungry (yes) and if pt. needed new brief (yes). Helped pt. move from bed to chair with assist from nurse (2x) and walker. Moved chair close to bed so pt. only had to take 2-5 steps and turn. Pt. did not reach back for chair but did allow staff to lower gently. Pt was given boost, goldfish crackers, and ritz cheese crackers. Placed personal alarm (clip) on pt. Pt. drank boost, ate cheese out of 1/2 of the ritz, and did not eat goldfish. Pt was able to stand with x1 assistance and use walker to ambulate back to bed. Pt gait unsteady, had difficulty in rising to "erect" posture (pt. knees remained bent and did not rise to full height). Pt. had difficulty maintaining balance and I had to provide substantial pressure to pt. back approximately 3" above coccyx to prevent pt. from falling backwards. Gaitbelt highly recommended if pt. is ambulating
--- NOTE | 2020-07-22 22:08 | PDOC ---
Exam Note: [place] Note: Please also refer to the separate dictated note~for this date of service dictated separately.~Patient seen individually. Discussed the patient with Nursing staff reviewed the chart.~Reviewed interim history and current functioning. Reviewed vital signs,~Labs/ Radiology~and current medications noted below. Continue current treatment with the changes noted in the dictated addendum note Assessment: Vital Signs/I&O: Vital Signs Date Time Temp Pulse Resp B/P (MAP) Pulse Ox O2 Delivery O2 Flow Rate FiO2 07/22/20 15:00 98.5 72 16 113/69 (84) 96 Room Air I & O 07/21/20 07/21/20 07/22/20 15:00 23:00 07:00 Intake Total 360 ml 120 ml Balance 360 ml 120 ml Labs: Laboratory Tests Test 07/22/20 15:35 White Blood Count 2.3 x10^3/uL (4.0-11.0) L Red Blood Count 2.81 x10^6/uL (4.30-5.70) L Hemoglobin 9.0 g/dL (13.0-17.5) L Hematocrit 27.3 % (39.0-53.0) L Mean Corpuscular Volume 97 fL (79-100) Mean Corpuscular Hemoglobin 32 pg (25-35) Mean Corpuscular Hemoglobin Concent 33 g/dL (31-37) Red Cell Distribution Width 14.9 % (11.5-14.5) H Platelet Count 109 x10^3/uL (140-400) L Neutrophils (%) (Auto) 49 % (31-73) Lymphocytes (%) (Auto) 23 % (24-48) L Monocytes (%) (Auto) 26 % (0-9) H Eosinophils (%) (Auto) 1 % (0-3) Basophils (%) (Auto) 1 % (0-3) Neutrophils # (Auto) 1.1 x10^3uL (1.8-7.7) L Lymphocytes # (Auto) 0.5 x10^3/uL (1.0-4.8) L Monocytes # (Auto) 0.6 x10^3/uL (0.0-1.1) Eosinophils # (Auto) 0.0 x10^3/uL (0.0-0.7) Basophils # (Auto) 0.0 x10^3/uL (0.0-0.2) Current Medications: Meds: Current Medications Medications (Trade) Dose Ordered Sig/Lit Route PRN Reason Start Time Stop Time Status Last Admin Dose Admin Levofloxacin (Levaquin) 750 mg Q48H PO 07/22/20 09:00 07/28/20 09:01 07/22/20 17:09 I have reviewed the current psychotropics carefully including drug interactions. Risk benefit ratio favors no change other than as noted in my dictated progress note. Diagnosis: Problems: (1) Impulse control disorder, unspecified (2) Anxiety disorder, unspecified (3) Dementia, vascular, with depression (4) Dementia, vascular, with delusions (5) Major neurocognitive disorder (6) Major neurocognitive disorder, due to vascular disease, with behavioral disturbance, mild TL SAMUEL MD Jul 22, 2020 22:08
[2020-07-22] MEDS: traZODone 50 MG TABLET. PO SCH (22:10)
[2020-07-22] MEDS: MIRTAZAPINE 15 MG TABLET PO SCH (22:10)
[2020-07-22] MEDS: risperiDONE 0.5 MG TABLET. PO SCH (22:11)
[2020-07-22] MEDS: MELATONIN 3 MG TABLET PO SCH (22:11)
--- NOTE | 2020-07-22 23:10 | NUR ---
Patient is in his room on assumption of care, sleeping but arousable to name. Disorganized, confused. HS meds held initially due to drowsiness. Patient up at 2130, attempting to get out of bed. This nurse and SOUND EFFECTS TECHNICIAN assisted patient out of bed and into chair. Offered a variety of snacks and a strawberry boost. Patient consumed most of what was offered. HS meds given crushed in vanilla pudding. Patient put back to bed with staff assist of 2 after having his snack. No agitation. Does not appear to be experiencing any pain or discomfort. Patient appears to be sleeping comfortably at present time. Bed alarm on for safety. Will continue to monitor.
--- NOTE | 2020-07-22 23:24 | PDOC ---
Exam Note: Taurus Note: This note for 07/22/2020 covers elements not covered in my initial note. Subjective: The patient was reviewed on telehealth rounds in the evening of 07/22/2020 with Wendy MOREL. Discussed with nursing staff, reviewed the chart. He has been somewhat drowsy, started on Levaquin for UTI, pseudomonas positive. WBC is 2. We will defer to Dr. Vega, have a pharmacy consult and repeat CBC today. Hemoglobin 8.9. Review of Systems: Positive for tiredness. Ambulation impaired with walker. No CV, , pulmonary, eye system symptoms on review. Mental Status Exam: Oriented to himself. He was sleepy, not able to interact very much. Insight and judgment, recent and remote memory, attention and concentration, fund of knowledge is poor consistent with his diagnoses mentioned in my initial note. Laboratory Data: Reviewed. 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 Anxiety disorder unspecified. Impulse control disorder unspecified. Plan: No change from initial note. Defer the medical management, low WBC to Dr. Vega. Assessment: Vital Signs/I&O: Vital Signs Date Time Temp Pulse Resp B/P (MAP) Pulse Ox O2 Delivery O2 Flow Rate FiO2 07/22/20 21:00 72 113/69 07/22/20 15:00 98.5 16 96 Room Air I & O 07/21/20 07/21/20 07/22/20 15:00 23:00 07:00 Intake Total 360 ml 120 ml Balance 360 ml 120 ml Labs: Laboratory Tests Test 07/22/20 15:35 White Blood Count 2.3 x10^3/uL (4.0-11.0) L Red Blood Count 2.81 x10^6/uL (4.30-5.70) L Hemoglobin 9.0 g/dL (13.0-17.5) L Hematocrit 27.3 % (39.0-53.0) L Mean Corpuscular Volume 97 fL (79-100) Mean Corpuscular Hemoglobin 32 pg (25-35) Mean Corpuscular Hemoglobin Concent 33 g/dL (31-37) Red Cell Distribution Width 14.9 % (11.5-14.5) H Platelet Count 109 x10^3/uL (140-400) L Neutrophils (%) (Auto) 49 % (31-73) Lymphocytes (%) (Auto) 23 % (24-48) L Monocytes (%) (Auto) 26 % (0-9) H Eosinophils (%) (Auto) 1 % (0-3) Basophils (%) (Auto) 1 % (0-3) Neutrophils # (Auto) 1.1 x10^3uL (1.8-7.7) L Lymphocytes # (Auto) 0.5 x10^3/uL (1.0-4.8) L Monocytes # (Auto) 0.6 x10^3/uL (0.0-1.1) Eosinophils # (Auto) 0.0 x10^3/uL (0.0-0.7) Basophils # (Auto) 0.0 x10^3/uL (0.0-0.2) Current Medications: Meds: Current Medications Medications (Trade) Dose Ordered Sig/Lit Route PRN Reason Start Time Stop Time Status Last Admin Dose Admin Levofloxacin (Levaquin) 750 mg Q48H PO 07/22/20 09:00 07/28/20 09:01 07/22/20 17:09 I have reviewed the current psychotropics carefully including drug interactions. Risk benefit ratio favors no change other than as noted in my dictated progress note. Diagnosis: Problems: (1) Impulse control disorder, unspecified (2) Anxiety disorder, unspecified (3) Dementia, vascular, with depression (4) Dementia, vascular, with delusions (5) Major neurocognitive disorder (6) Major neurocognitive disorder, due to vascular disease, with behavioral disturbance, mild JIMMIE,TL Pratt MD Jul 22, 2020 23:24
[2020-07-23 05:00] VITALS: BP 128/75
[2020-07-23] MEDS: VALPROATE ACID 250 MG/5 ML ORAL SOLUTION PO SCH ×2 (08:20→17:12)
[2020-07-23] MEDS: METOPROLOL TART IMMED RELEASE 50 MG TABLET PO SCH ×2 (08:21→20:12)
[2020-07-23] MEDS: LOSARTAN 50 MG TABLET. PO SCH (08:22)
[2020-07-23] MEDS: LACTOBACILLUS RHAMNOSUS GG 1 CAPSULE. PO SCH ×2 (09:00→20:10)
[2020-07-23] MEDS: [UNRECOGNIZED DRUG - OTHER] PO SCH (09:00)
[2020-07-23] MEDS: MAGNESIUM OXIDE 400 MG TABLET PO SCH ×3 (09:00→20:09)
[2020-07-23] MEDS: MULTIVITAMIN PO SCH (09:00)
[2020-07-23] MEDS: FOLIC ACID 1 MG TABLET PO SCH (09:00)
[2020-07-23] MEDS: THIAMINE 100 MG TABLET. PO SCH (09:00)
--- NOTE | 2020-07-23 11:28 | NUR ---
He is sleeping but more arousable today than yesterday. No agitation, no aggression, no hallucinations, no delusions noted. Pt is calm, cooperative, and compliant.
[2020-07-23 15:00] VITALS: BP 129/69
--- NOTE | 2020-07-23 18:22 | NUR ---
Pt is attempting to ambulate unassisted, pt was attempting to get out of be without assistance and was resistive with redirection (swatting at staff and pulling away.) He was adamant he "had to go." Staff was unable to redirect or distract him. PRN zyprexa gayleis given and pt taken to [facility] for safey and deescalation.
[2020-07-23] MEDS: MIRTAZAPINE 15 MG TABLET PO SCH (20:10)
[2020-07-23] MEDS: risperiDONE 0.5 MG TABLET. PO SCH (20:11)
[2020-07-23] MEDS: traZODone 50 MG TABLET. PO SCH (20:11)
[2020-07-23] MEDS: MELATONIN 3 MG TABLET PO SCH (20:12)
--- NOTE | 2020-07-23 22:13 | PDOC ---
Exam Note: Taurus Note: Please also refer to the separate dictated note~for this date of service dictated separately.~Patient seen individually. Discussed the patient with Nursing staff reviewed the chart.~Reviewed interim history and current functioning. Reviewed vital signs,~Labs/ Radiology~and current medications noted below. Continue current treatment with the changes noted in the dictated addendum note Assessment: Vital Signs/I&O: Vital Signs Date Time Temp Pulse Resp B/P (MAP) Pulse Ox O2 Delivery O2 Flow Rate FiO2 07/23/20 20:12 79 129/69 07/23/20 15:00 98.0 18 96 Room Air I & O 07/22/20 07/22/20 07/23/20 15:00 23:00 07:00 Intake Total 200 ml 720 ml Balance 200 ml 720 ml Current Medications: Meds: Current Medications Medications (Trade) Dose Ordered Sig/Lit Route PRN Reason Start Time Stop Time Status Last Admin Dose Admin Mirtazapine (Remeron) 7.5 mg QHS PO 07/23/20 21:00 07/23/20 20:10 I have reviewed the current psychotropics carefully including drug interactions. Risk benefit ratio favors no change other than as noted in my dictated progress note. Diagnosis: Problems: (1) Impulse control disorder, unspecified (2) Anxiety disorder, unspecified (3) Dementia, vascular, with depression (4) Dementia, vascular, with delusions (5) Major neurocognitive disorder (6) Major neurocognitive disorder, due to vascular disease, with behavioral disturbance, mild TL SAMUEL MD Jul 23, 2020 22:13
--- NOTE | 2020-07-23 23:03 | NUR ---
Patient is in the [facility] on assumption of care. He is singing nonsensically and scooting around the floor on his bottom. HS medications given crushed and mixed with vanilla boost. Patient later assisted into the quiet room with a staff assist of 2, where he was changed and tucked into bed. He is currently laying in the quiet room, awake in the bed. Will continue to monitor.
[2020-07-24 06:00] VITALS: BP 158/80
[2020-07-24] MEDS: LACTOBACILLUS RHAMNOSUS GG 1 CAPSULE. PO SCH ×3 (09:00→19:43)
[2020-07-24] MEDS: MAGNESIUM OXIDE 400 MG TABLET PO SCH ×3 (09:00→19:43)
[2020-07-24] MEDS: MULTIVITAMIN PO SCH (09:00)
[2020-07-24] MEDS: FOLIC ACID 1 MG TABLET PO SCH (09:00)
[2020-07-24] MEDS: THIAMINE 100 MG TABLET. PO SCH (09:00)
[2020-07-24] MEDS: [UNRECOGNIZED DRUG - OTHER] PO SCH (09:00)
[2020-07-24] MEDS: VALPROATE ACID 250 MG/5 ML ORAL SOLUTION PO SCH ×2 (12:35→17:30)
[2020-07-24] MEDS: LOSARTAN 50 MG TABLET. PO SCH (12:35)
[2020-07-24] MEDS: METOPROLOL TART IMMED RELEASE 50 MG TABLET PO SCH ×2 (12:35→19:43)
[2020-07-24] MEDS: levoFLOXacin 750 MG TABLET PO SCH (12:35)
--- NOTE | 2020-07-24 14:39 | NUR ---
Pt is calm, cooperative, complaint, and confused. No agitation, no aggression. He is compliant with his medication and assessment.
[2020-07-24 15:54] VITALS: BP 136/74
[2020-07-24] MEDS: traZODone 50 MG TABLET. PO SCH (17:30)
[2020-07-24] MEDS: MELATONIN 3 MG TABLET PO SCH (19:42)
[2020-07-24] MEDS: risperiDONE 0.5 MG TABLET. PO SCH (19:42)
[2020-07-24] MEDS: MIRTAZAPINE 15 MG TABLET PO SCH (19:43)
--- NOTE | 2020-07-24 22:00 | PDOC ---
Exam Note: Taurus Note: Please also refer to the separate dictated note~for this date of service dictated separately.~Patient seen individually. Discussed the patient with Nursing staff reviewed the chart.~Reviewed interim history and current functioning. Reviewed vital signs,~Labs/ Radiology~and current medications noted below. Continue current treatment with the changes noted in the dictated addendum note Assessment: Vital Signs/I&O: Vital Signs Date Time Temp Pulse Resp B/P (MAP) Pulse Ox O2 Delivery O2 Flow Rate FiO2 07/24/20 19:43 67 136/74 07/24/20 15:54 96.2 19 98 07/24/20 06:00 Room Air I & O 07/23/20 07/23/20 07/24/20 15:00 23:00 07:00 Intake Total 840 ml 240 ml Balance 840 ml 240 ml Current Medications: I have reviewed the current psychotropics carefully including drug interactions. Risk benefit ratio favors no change other than as noted in my dictated progress note. Diagnosis: Problems: (1) Impulse control disorder, unspecified (2) Anxiety disorder, unspecified (3) Dementia, vascular, with depression (4) Dementia, vascular, with delusions (5) Major neurocognitive disorder (6) Major neurocognitive disorder, due to vascular disease, with behavioral disturbance, mild TL SAMUEL MD Jul 24, 2020 22:00
--- NOTE | 2020-07-24 22:32 | NUR ---
PATIENT IS LOCATED IN PT ROOM AT TIME OF ASSESSMENT AND MEDICATION ADMINISTRATION. PATIENT IS DISORGANIZED BUT COOPERATIVE WITH MEDICATIONS CRUSHED IN BOOST. PATIENT IS RESTING IN BED AT THIS TIME. WILL CONTINUE TO MONITOR.
[2020-07-25 06:31] VITALS: BP 131/76
--- NOTE | 2020-07-25 06:35 | PDOC ---
Exam Note: Taurus Note: This note is a late entry for 07/23/2020 covers elements not covered in my initial note. Subjective: The patient was reviewed on telehealth rounds in the evening of 07/23/2020 with Wendy MOREL. Discussed with nursing staff, reviewed the chart. He slept 7-1/2 hours previous night. He remains on antibiotics. Pharmacy consult had suggested that it could be correlation between increasing the Remeron from 7.5 mg h.s. to 15 mg h.s. and the drop in his WBCs. We will go ahead and stop this and repeat a CBC. He has been more alert and per nursing report he has been perking up. No yelling noted. He has not been aggressive, more awake. Review of Systems: Ambulation impaired with walker. No CV, , pulmonary, eye, ENT system symptoms on review. Mental Status Exam: Oriented to himself. Insight and judgment, recent and remote memory, attention and concentration, fund of knowledge is poor consistent with his diagnoses mentioned in my initial note. Laboratory Data: Reviewed. 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 Anxiety disorder unspecified. Impulse control disorder unspecified. Plan: Stop the Remeron as noted. Continue rest of the psychotropics for now. Medical management to be continued with Dr. Vega. Assessment: Vital Signs/I&O: Vital Signs Date Time Temp Pulse Resp B/P (MAP) Pulse Ox O2 Delivery O2 Flow Rate FiO2 07/25/20 06:31 96.6 69 20 131/76 (94) 100 Room Air I & O 07/24/20 07/24/20 07/25/20 15:00 23:00 07:00 Intake Total 240 ml 240 ml Balance 240 ml 240 ml Current Medications: I have reviewed the current psychotropics carefully including drug interactions. Risk benefit ratio favors no change other than as noted in my dictated progress note. Diagnosis: Problems: (1) Impulse control disorder, unspecified (2) Anxiety disorder, unspecified (3) Dementia, vascular, with depression (4) Dementia, vascular, with delusions (5) Major neurocognitive disorder (6) Major neurocognitive disorder, due to vascular disease, with behavioral disturbance, mild JIMMIETL SANTANA MD Jul 25, 2020 06:35
--- NOTE | 2020-07-25 06:49 | PDOC ---
Exam Note: Taurus Note: This note is a late entry for 07/24/2020 covers elements not covered in my initial note. Subjective: The patient was reviewed on telehealth rounds in the evening of 07/24/2020 with Wendy MOREL. Discussed with nursing staff, reviewed the chart. He slept 6 hours previous night. He has been somewhat anxious, restless, confused, more so when he is wet but more awake and alert. Review of Systems: Ambulation impaired with walker. No CV, , pulmonary, eye system symptoms on review. Mental Status Exam: Oriented to himself. Insight and judgment, recent and remote memory, attention and concentration, fund of knowledge is poor consistent with his diagnoses. Laboratory Data: Reviewed. 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 Anxiety disorder unspecified. Impulse control disorder unspecified. Plan: No change from initial note. Assessment: Vital Signs/I&O: Vital Signs Date Time Temp Pulse Resp B/P (MAP) Pulse Ox O2 Delivery O2 Flow Rate FiO2 07/25/20 06:31 96.6 69 20 131/76 (94) 100 Room Air I & O 07/24/20 07/24/20 07/25/20 15:00 23:00 07:00 Intake Total 240 ml 240 ml Balance 240 ml 240 ml Current Medications: I have reviewed the current psychotropics carefully including drug interactions. Risk benefit ratio favors no change other than as noted in my dictated progress note. Diagnosis: Problems: (1) Impulse control disorder, unspecified (2) Anxiety disorder, unspecified (3) Dementia, vascular, with depression (4) Dementia, vascular, with delusions (5) Major neurocognitive disorder (6) Major neurocognitive disorder, due to vascular disease, with behavioral disturbance, mild TL SAMUEL MD Jul 25, 2020 06:49
[2020-07-25] MEDS: [UNRECOGNIZED DRUG - OTHER] PO SCH (08:04)
[2020-07-25] MEDS: VALPROATE ACID 250 MG/5 ML ORAL SOLUTION PO SCH ×2 (08:04→16:53)
[2020-07-25] MEDS: THIAMINE 100 MG TABLET. PO SCH (08:04)
[2020-07-25] MEDS: METOPROLOL TART IMMED RELEASE 50 MG TABLET PO SCH ×2 (08:04→20:19)
[2020-07-25] MEDS: FOLIC ACID 1 MG TABLET PO SCH (08:04)
[2020-07-25] MEDS: MULTIVITAMIN PO SCH (08:04)
[2020-07-25] MEDS: LACTOBACILLUS RHAMNOSUS GG 1 CAPSULE. PO SCH ×2 (08:04→20:19)
[2020-07-25] MEDS: MAGNESIUM OXIDE 400 MG TABLET PO SCH ×3 (08:05→20:19)
[2020-07-25] MEDS: LOSARTAN 50 MG TABLET. PO SCH (08:05)
--- NOTE | 2020-07-25 12:02 | NUR ---
Nursing note: Pt in [facility] at shift change. He was compliant with meds crushed and mixed with boost. He has occasionally been yelling out and attempting to stand up and walk without his walker. Pt has been able to be redirected. He is currently asleep in the [facility]. Will continue to monitor.
[2020-07-25 16:17] VITALS: BP 130/71
[2020-07-25] MEDS: MIRTAZAPINE 15 MG TABLET PO SCH (20:18)
[2020-07-25] MEDS: traZODone 50 MG TABLET. PO SCH (20:18)
[2020-07-25] MEDS: risperiDONE 0.5 MG TABLET. PO SCH (20:19)
[2020-07-25] MEDS: MELATONIN 3 MG TABLET PO SCH (20:20)
[2020-07-25 21:06] LABS: BASO % 0 % (0-3); EOS # 0.1 x10^3/uL (0.0-0.7); EOS % 2 % (0-3); HEMATOCRIT 29.9 % (39.0-53.0); HEMOGLOBIN 9.8 g/dL (13.0-17.5); LYMPH # 0.6 x10^3/uL (1.0-4.8); LYMPH % 22 % (24-48); MEAN CORPUSCULAR HEMOGLOBIN 31 pg (25-35); MEAN CORPUSCULAR HGB CONC 33 g/dL (31-37); MEAN CORPUSCULAR VOLUME 96 fL (79-100); MONO # 0.5 x10^3/uL (0.0-1.1); MONO % 17 % (0-9); NEUT # 1.6 x10^3uL (1.8-7.7); NEUT % 59 % (31-73); PLATELET COUNT 176 x10^3/uL (140-400); RED BLOOD COUNT 3.13 x10^6/uL (4.30-5.70); RED CELL DISTRIBUTION WIDTH 14.8 % (11.5-14.5); WHITE BLOOD COUNT 2.8 x10^3/uL (4.0-11.0)
[2020-07-25 21:19] LABS: ALBUMIN 2.9 g/dL (3.4-5.0); ALBUMIN/GLOBULIN RATIO 0.6 (1.0-1.7); CALCIUM 9.4 mg/dL (8.5-10.1); CREATININE 1.2 mg/dL (0.7-1.3); POTASSIUM 4.5 mmol/L (3.5-5.1); TOTAL BILIRUBIN 0.5 mg/dL (0.2-1.0); TOTAL PROTEIN 7.6 g/dL (6.4-8.2)
--- NOTE | 2020-07-25 21:52 | PDOC ---
Exam Note: Taurus Note: Please also refer to the separate dictated note~for this date of service dictated separately.~Patient seen individually. Discussed the patient with Nursing staff reviewed the chart.~Reviewed interim history and current functioning. Reviewed vital signs,~Labs/ Radiology~and current medications noted below. Continue current treatment with the changes noted in the dictated addendum note Assessment: Vital Signs/I&O: Vital Signs Date Time Temp Pulse Resp B/P (MAP) Pulse Ox O2 Delivery O2 Flow Rate FiO2 07/25/20 20:19 70 130/71 07/25/20 16:17 96.2 16 100 07/25/20 06:31 Room Air I & O 07/24/20 07/24/20 07/25/20 15:00 23:00 07:00 Intake Total 240 ml 240 ml Balance 240 ml 240 ml Labs: Laboratory Tests Test 07/25/20 20:57 White Blood Count 2.8 x10^3/uL (4.0-11.0) L Red Blood Count 3.13 x10^6/uL (4.30-5.70) L Hemoglobin 9.8 g/dL (13.0-17.5) L Hematocrit 29.9 % (39.0-53.0) L Mean Corpuscular Volume 96 fL (79-100) Mean Corpuscular Hemoglobin 31 pg (25-35) Mean Corpuscular Hemoglobin Concent 33 g/dL (31-37) Red Cell Distribution Width 14.8 % (11.5-14.5) H Platelet Count 176 x10^3/uL (140-400) Neutrophils (%) (Auto) 59 % (31-73) Lymphocytes (%) (Auto) 22 % (24-48) L Monocytes (%) (Auto) 17 % (0-9) H Eosinophils (%) (Auto) 2 % (0-3) Basophils (%) (Auto) 0 % (0-3) Neutrophils # (Auto) 1.6 x10^3uL (1.8-7.7) L Lymphocytes # (Auto) 0.6 x10^3/uL (1.0-4.8) L Monocytes # (Auto) 0.5 x10^3/uL (0.0-1.1) Eosinophils # (Auto) 0.1 x10^3/uL (0.0-0.7) Basophils # (Auto) 0.0 x10^3/uL (0.0-0.2) Sodium Level 135 mmol/L (136-145) L Potassium Level 4.5 mmol/L (3.5-5.1) Chloride Level 100 mmol/L (98-107) Carbon Dioxide Level 28 mmol/L (21-32) Anion Gap 7 (6-14) Blood Urea Nitrogen 36 mg/dL (8-26) H Creatinine 1.2 mg/dL (0.7-1.3) Estimated GFR (Cockcroft-Gault) 58.0 BUN/Creatinine Ratio 30 (6-20) H Glucose Level 89 mg/dL (70-99) Calcium Level 9.4 mg/dL (8.5-10.1) Total Bilirubin 0.5 mg/dL (0.2-1.0) Aspartate Amino Transferase (AST) 19 U/L (15-37) Alanine Aminotransferase (ALT) 16 U/L (16-63) Alkaline Phosphatase 60 U/L (46-116) Total Protein 7.6 g/dL (6.4-8.2) Albumin 2.9 g/dL (3.4-5.0) L Albumin/Globulin Ratio 0.6 (1.0-1.7) L Current Medications: I have reviewed the current psychotropics carefully including drug interactions. Risk benefit ratio favors no change other than as noted in my dictated progress note. Diagnosis: Problems: (1) Impulse control disorder, unspecified (2) Anxiety disorder, unspecified (3) Dementia, vascular, with depression (4) Dementia, vascular, with delusions (5) Major neurocognitive disorder (6) Major neurocognitive disorder, due to vascular disease, with behavioral disturbance, mild TL SAMUEL MD Jul 25, 2020 21:52
--- NOTE | 2020-07-26 05:14 | NUR ---
Nursing Note The patient was located in his room and in the hallway for his assessment and medication pass. The patient took his medication crushed in vanilla ice cream. The patient was very disorganized this shift but was generally cooperative with cares. The patient is currently awake sitting on the side of his bed.
[2020-07-26 06:19] VITALS: BP 102/61
[2020-07-26] MEDS: [UNRECOGNIZED DRUG - OTHER] PO SCH (07:18)
[2020-07-26] MEDS: MULTIVITAMIN PO SCH (07:18)
[2020-07-26] MEDS: FOLIC ACID 1 MG TABLET PO SCH (07:48)
[2020-07-26] MEDS: MAGNESIUM OXIDE 400 MG TABLET PO SCH ×3 (07:48→19:53)
[2020-07-26] MEDS: THIAMINE 100 MG TABLET. PO SCH (07:48)
[2020-07-26] MEDS: levoFLOXacin 750 MG TABLET PO SCH (07:48)
[2020-07-26] MEDS: VALPROATE ACID 250 MG/5 ML ORAL SOLUTION PO SCH ×2 (07:49→17:25)
[2020-07-26] MEDS: METOPROLOL TART IMMED RELEASE 50 MG TABLET PO SCH ×2 (07:49→19:52)
--- NOTE | 2020-07-26 11:47 | NUR ---
Patient has been sleeping most of the morning. He was woke up for breakfast but did not eat and went back to sleep. Medications administered in vanilla boost. Patient drowsy and laying in bed. Patient got 5.75 hours of sleep last night. No delusions stated at this time. Will continue to monitor. Held Losartan related to low blood pressure.
[2020-07-26] MEDS: LOSARTAN 50 MG TABLET. PO SCH (11:49)
[2020-07-26 15:45] VITALS: BP 104/66
--- NOTE | 2020-07-26 18:27 | NUR ---
Patient has been up walking in the hallway using his walker most of the afternoon. He was reminded to put a face mask on and he did. Patient took his evening medications in a "shake" made with vanilla ice cream, vanilla boost and depakene. He has been social and cooperative this shift and ate well at dinner. Patients brief was changed by one staff member, patient cooperated during ADLs. 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 He came back with the newspaper but had forgotten why he went to get it. He has been calm and pleasantly confused.
[2020-07-26] MEDS: MELATONIN 3 MG TABLET PO SCH (19:52)
[2020-07-26] MEDS: LACTOBACILLUS RHAMNOSUS GG 1 CAPSULE. PO SCH (19:52)
[2020-07-26] MEDS: risperiDONE 0.5 MG TABLET. PO SCH (19:53)
[2020-07-26] MEDS: MIRTAZAPINE 15 MG TABLET PO SCH (19:53)
[2020-07-26] MEDS: traZODone 50 MG TABLET. PO SCH (19:53)
--- NOTE | 2020-07-26 22:05 | PDOC ---
Exam Note: Taurus Note: Please also refer to the separate dictated note~for this date of service dictated separately.~Patient seen individually. Discussed the patient with Nursing staff reviewed the chart.~Reviewed interim history and current functioning. Reviewed vital signs,~Labs/ Radiology~and current medications noted below. Continue current treatment with the changes noted in the dictated addendum note Assessment: Vital Signs/I&O: Vital Signs Date Time Temp Pulse Resp B/P (MAP) Pulse Ox O2 Delivery O2 Flow Rate FiO2 07/26/20 19:52 111/77 07/26/20 15:45 98.1 87 18 99 07/25/20 06:31 Room Air I & O 07/25/20 07/25/20 07/26/20 15:00 23:00 07:00 Intake Total 600 ml 240 ml Balance 600 ml 240 ml Current Medications: I have reviewed the current psychotropics carefully including drug interactions. Risk benefit ratio favors no change other than as noted in my dictated progress note. Diagnosis: Problems: (1) Impulse control disorder, unspecified (2) Anxiety disorder, unspecified (3) Dementia, vascular, with depression (4) Dementia, vascular, with delusions (5) Major neurocognitive disorder (6) Major neurocognitive disorder, due to vascular disease, with behavioral disturbance, mild TL SAMUEL MD Jul 26, 2020 22:05
--- NOTE | 2020-07-27 01:11 | NUR ---
Pt has been pleasant and cooperative tonight. He has had no aggression towards staff or peers. For while he was at nurse station asking if his supplies are hear yet then later he sat in his room reading the newspaper. Meds were given crushed in pudding . Since going to bed he has been sleeping.
[2020-07-27 06:31] VITALS: BP 114/74
--- NOTE | 2020-07-27 06:38 | PDOC ---
Exam Note: Taurus Note: This note is a late entry for 07/25/2020 covers elements not covered in my initial note. Subjective: The patient was seen face to face in the evening of 07/25/2020. Discussed with nursing staff, reviewed the chart. Overall the patient has been more alert and interactive, still very confused. Review of Systems: Ambulation impaired with walker. No CV, , pulmonary, eye, ENT system symptoms on review. Mental Status Exam: Oriented to himself. Insight and judgment, recent and remote memory, attention and concentration, fund of knowledge is poor consistent with his diagnoses. Laboratory Data: Reviewed. 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 Anxiety disorder unspecified. Impulse control disorder unspecified. Plan: No change from initial note. Assessment: Vital Signs/I&O: Vital Signs Date Time Temp Pulse Resp B/P (MAP) Pulse Ox O2 Delivery O2 Flow Rate FiO2 07/27/20 06:31 70 18 114/74 (87) 100 07/26/20 15:45 98.1 07/25/20 06:31 Room Air I & O 07/26/20 07/26/20 07/27/20 15:00 23:00 07:00 Intake Total 200 ml 240 ml 240 ml Balance 200 ml 240 ml 240 ml Current Medications: I have reviewed the current psychotropics carefully including drug interactions. Risk benefit ratio favors no change other than as noted in my dictated progress note. Diagnosis: Problems: (1) Impulse control disorder, unspecified (2) Anxiety disorder, unspecified (3) Dementia, vascular, with depression (4) Dementia, vascular, with delusions (5) Major neurocognitive disorder (6) Major neurocognitive disorder, due to vascular disease, with behavioral disturbance, mild TL SAMUEL MD Jul 27, 2020 06:38
--- NOTE | 2020-07-27 06:54 | PDOC ---
Exam Note: Taurus Note: This note is a late entry for 07/26/2020 covers elements not covered in my initial note. Subjective: The patient was seen face to face in the evening of 07/26/2020 with Meaghan MOREL. Discussed with nursing staff, reviewed the chart. He slept 5-3/4 hours previous night. He has been more awake during this day. He is still confused. He did sleep till lunch time, cooperative with changes and ADLs. He was talking about working in the program, oblivious of where he is. Review of Systems: Ambulation impaired with walker. No CV, , pulmonary, eye, ENT system symptoms on review. Mental Status Exam: Oriented to himself. Insight and judgment, recent and remote memory, attention and concentration, fund of knowledge is poor consistent with his diagnoses. Laboratory Data: Reviewed. 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 Anxiety disorder unspecified. Impulse control disorder unspecified. Plan: No change from initial note. Assessment: Vital Signs/I&O: Vital Signs Date Time Temp Pulse Resp B/P (MAP) Pulse Ox O2 Delivery O2 Flow Rate FiO2 07/27/20 06:31 70 18 114/74 (87) 100 07/26/20 15:45 98.1 07/25/20 06:31 Room Air I & O 07/26/20 07/26/20 07/27/20 15:00 23:00 07:00 Intake Total 200 ml 240 ml 240 ml Balance 200 ml 240 ml 240 ml Current Medications: I have reviewed the current psychotropics carefully including drug interactions. Risk benefit ratio favors no change other than as noted in my dictated progress note. Diagnosis: Problems: (1) Impulse control disorder, unspecified (2) Anxiety disorder, unspecified (3) Dementia, vascular, with depression (4) Dementia, vascular, with delusions (5) Major neurocognitive disorder (6) Major neurocognitive disorder, due to vascular disease, with behavioral disturbance, mild JIMMIETL SANTANA MD Jul 27, 2020 06:54
[2020-07-27] MEDS: LACTOBACILLUS RHAMNOSUS GG 1 CAPSULE. PO SCH ×2 (07:56→19:43)
[2020-07-27] MEDS: VALPROATE ACID 250 MG/5 ML ORAL SOLUTION PO SCH ×2 (07:56→17:13)
[2020-07-27] MEDS: METOPROLOL TART IMMED RELEASE 50 MG TABLET PO SCH ×2 (07:56→19:43)
[2020-07-27] MEDS: THIAMINE 100 MG TABLET. PO SCH (07:57)
[2020-07-27] MEDS: MULTIVITAMIN PO SCH (07:57)
[2020-07-27] MEDS: [UNRECOGNIZED DRUG - OTHER] PO SCH (07:57)
[2020-07-27] MEDS: MAGNESIUM OXIDE 400 MG TABLET PO SCH ×3 (07:57→19:42)
[2020-07-27] MEDS: FOLIC ACID 1 MG TABLET PO SCH (07:57)
--- NOTE | 2020-07-27 08:20 | NUR ---
Patient was up and ambulating in the hallway at 0645 at the beginning of this shift. He was compliant with medications given crushed and hidden in vanilla boost. Patient was in west hallway and he closed the door and locked himself in. He has been pleasant, disorganized and calm this morning. Patient is eating breakfast in his room after tray was set up by nurse. He attempted to "pay nurse" but he couldn't "find his wallet". He forgets to wear his mask while in the hallway but is verbally re-directible.
--- NOTE | 2020-07-27 10:59 | NUR ---
WEEKLY ACTIVITY THERAPY NOTE Date of Admission:05/27 Date of AT Assessment:05/30 Precipitating behaviors that initiated intake and admission:Pt admitted to [facility] on 05/11 for rhabdo, delirium and DT's (60 yrs of ETOH). Pt sent to retirement on 05/25 and was there for less than 24hrs d/t combative behaviors. Pt sent back to [facility] on 05/26 where he refused meds, cares, etc. Goal aimed:increase time management and socialization skills Initial Goal: Pt will participate in one group or individual Activity Therapy session per week. Weekly progress towards goal: did not achieve Group participation level: zero Weekly highlights: Behaviors observed: withdrawn to room, wanders at times, calm Plan: no change to goal Beneficial adaptations:
--- NOTE | 2020-07-27 11:21 | TX PLAN ---
Interdisciplinary Tx Plan Admission Information May 27, 2020 at 22:24 Legal Status (on Admission): Voluntary DPOA/Guardian Name: Sara Arnold Contact Other Contact Name: [facility] Verified Code Status: DNR Allergies: Coded Allergies: No Known Drug Allergies (Unverified , 05/27/20) Diagnoses Primary Diagnosis: Dementia with BD Reasons for Admission: Agitated, Confusion/Disoriented Problem in Patient's Words: He has noticeably been decreasing in cognition and physical health over the last 6-8 months. Additional Admission Comments: The intake reports that pt is confused and agitated; but no other behaviors or scenarios noted. Problems Active Problems: Agitated Confusion Paranoid Inactive Problems: Mostly medication compliant Pt Strengths/Limitations Ability for [place]: Poor Cognitive Functioning/Ability: Poor Communication Skills/Ability: Fair Financial Resources: Fair Insight/Judgement: Poor Intellectual Ability: Fair Physical Health: Poor Social Skills: Fair Stability in Family: Good Stability in School/Work: Poor Verbal Skills: Fair Discharge Criteria Discharge Criteria: No need for close observ., Adequate arrangements @DC, Improved behavior, Improved mood/thought Preliminary Discharge Plan Preliminary DC Plan: Placement Needed Special Precautions Fall Risk: Moderate Initial D/C Plan Pt will need a higher level of care; not able to return to [facility] Identified Discharge Needs: Referrals to higher level of care Currently Utilized Resources Currently Utilized Resources/P: Primary Care Physician Referrals Community Resources: Referrals to [facility]/Memory Care facilities Identified Problems/Hx/Goals Objectives/Short-Term Goals Short Term Goals: Dec. Outbursts, Medication Stabilization, Monitor Med Effects, Promote Coping Skill, Other Short Term Goals in Patient's: N/A Interventions/Frequency Staff Interventions/Frequency&: Psychiatrist to assess pt at least 3x per week. Social Work to assess pt at least 2x per week. Nursing to monitor behavior, medications and complete 15 minute checks daily Encourage group participation in activities or 1:1 engagement based off activity dept assessment. 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 He lastly retired from [employer] in [place], [place]. Education: Masters in Education Community Follow-up Continue to follow-up with PCP Community Provider/Family Inpu: I just need help in finding him an appropriate place to go. He wants to go home but I just do not think it is safe right now. Treatment Plan Explained Patient/Administrative Clerk had this treatment plan explained to him/her as indicated by the signature below and has been given the opportunity to ask questions and make suggestions: Date: Patient/Administrative Clerk Signature: Status Update Update Pt is eating roughly 50% and sleeping on average 6 hours a night. Pt slept 3 hours last night; however, pt is being more compliant with medications and cares with staff. Pt does continue to be delusional but is more redirectable and pt behaviors are noted to decrease. Pt has referrals out for placement with hopes to discharge JOSE A. SW will continue to follow up with pt dtr and checking in on placement referrals. TAMMIE DEY Jul 27, 2020 11:20
[2020-07-27] MEDS: LOSARTAN 50 MG TABLET. PO SCH (12:18)
[2020-07-27 15:36] VITALS: BP 124/74
[2020-07-27] MEDS: MELATONIN 3 MG TABLET PO SCH (19:41)
[2020-07-27] MEDS: risperiDONE 0.5 MG TABLET. PO SCH (19:42)
[2020-07-27] MEDS: MIRTAZAPINE 7.5 MG TABLET. PO SCH (19:42)
[2020-07-27] MEDS: traZODone 50 MG TABLET. PO SCH (19:42)
--- NOTE | 2020-07-27 22:12 | PDOC ---
Exam Note: Taurus Note: Please also refer to the separate dictated note~for this date of service dictated separately.~Patient seen individually. Discussed the patient with Nursing staff reviewed the chart.~Reviewed interim history and current functioning. Reviewed vital signs,~Labs/ Radiology~and current medications noted below. Continue current treatment with the changes noted in the dictated addendum note Assessment: Vital Signs/I&O: Vital Signs Date Time Temp Pulse Resp B/P (MAP) Pulse Ox O2 Delivery O2 Flow Rate FiO2 07/27/20 19:43 68 124/74 07/27/20 15:36 97.3 16 100 07/25/20 06:31 Room Air I & O 07/26/20 07/26/20 07/27/20 15:00 23:00 07:00 Intake Total 200 ml 240 ml 240 ml Balance 200 ml 240 ml 240 ml Current Medications: Meds: Current Medications Medications (Trade) Dose Ordered Sig/Lit Route PRN Reason Start Time Stop Time Status Last Admin Dose Admin Mirtazapine (Remeron) 7.5 mg QHS PO 07/27/20 21:00 07/27/20 19:42 I have reviewed the current psychotropics carefully including drug interactions. Risk benefit ratio favors no change other than as noted in my dictated progress note. Diagnosis: Problems: (1) Impulse control disorder, unspecified (2) Anxiety disorder, unspecified (3) Dementia, vascular, with depression (4) Dementia, vascular, with delusions (5) Major neurocognitive disorder (6) Major neurocognitive disorder, due to vascular disease, with behavioral disturbance, mild TL SAMUEL MD Jul 27, 2020 22:12
--- NOTE | 2020-07-28 00:10 | NUR ---
Last evening pt sat in a chair reading the newspaper for quite awhile. He then walked the hyde for awhile and has been pleasant and cooperative. Meds were given crushed in Ensure. He has had no behaviors tonight.
[2020-07-28 06:45] VITALS: BP 119/60
[2020-07-28] MEDS: VALPROATE ACID 250 MG/5 ML ORAL SOLUTION PO SCH ×2 (08:12→17:25)
[2020-07-28] MEDS: MAGNESIUM OXIDE 400 MG TABLET PO SCH ×3 (08:13→20:19)
[2020-07-28] MEDS: METOPROLOL TART IMMED RELEASE 50 MG TABLET PO SCH ×2 (08:13→20:19)
[2020-07-28] MEDS: LOSARTAN 50 MG TABLET. PO SCH (08:13)
[2020-07-28] MEDS: LACTOBACILLUS RHAMNOSUS GG 1 CAPSULE. PO SCH ×2 (08:13→20:19)
[2020-07-28] MEDS: [UNRECOGNIZED DRUG - OTHER] PO SCH (08:14)
[2020-07-28] MEDS: FOLIC ACID 1 MG TABLET PO SCH (08:14)
[2020-07-28] MEDS: MULTIVITAMIN PO SCH (08:14)
[2020-07-28] MEDS: THIAMINE 100 MG TABLET. PO SCH (08:14)
[2020-07-28] MEDS: levoFLOXacin 750 MG TABLET PO SCH (08:15)
--- NOTE | 2020-07-28 10:37 | NUR ---
Patient has been awake and was sitting up in his bed eating breakfast. Patient compliant with medications given crushed and hidden in a vanilla shake (boost and vanilla ice cream). He is disorganized but pleasant and calm.
[2020-07-28 16:02] VITALS: BP 105/67
[2020-07-28] MEDS: risperiDONE 0.5 MG TABLET. PO SCH (20:18)
[2020-07-28] MEDS: MIRTAZAPINE 7.5 MG TABLET. PO SCH (20:18)
[2020-07-28] MEDS: traZODone 50 MG TABLET. PO SCH ×2 (20:19→23:29)
[2020-07-28] MEDS: MELATONIN 3 MG TABLET PO SCH (20:20)
--- NOTE | 2020-07-28 22:00 | PDOC ---
Exam Note: Taurus Note: Please also refer to the separate dictated note~for this date of service dictated separately.~Patient seen individually. Discussed the patient with Nursing staff reviewed the chart.~Reviewed interim history and current functioning. Reviewed vital signs,~Labs/ Radiology~and current medications noted below. Continue current treatment with the changes noted in the dictated addendum note Assessment: Vital Signs/I&O: Vital Signs Date Time Temp Pulse Resp B/P (MAP) Pulse Ox O2 Delivery O2 Flow Rate FiO2 07/28/20 20:19 70 105/67 07/28/20 16:02 97.8 20 100 07/25/20 06:31 Room Air I & O 07/27/20 07/27/20 07/28/20 15:00 23:00 07:00 Intake Total 320 ml 865 ml Balance 320 ml 865 ml Current Medications: I have reviewed the current psychotropics carefully including drug interactions. Risk benefit ratio favors no change other than as noted in my dictated progress note. Diagnosis: Problems: (1) Impulse control disorder, unspecified (2) Anxiety disorder, unspecified (3) Dementia, vascular, with depression (4) Dementia, vascular, with delusions (5) Major neurocognitive disorder (6) Major neurocognitive disorder, due to vascular disease, with behavioral disturbance, mild TL SAMUEL MD Jul 28, 2020 22:00
--- NOTE | 2020-07-29 02:10 | NUR ---
Last evening pt sat quietly in a chair in the hallway. His meds were crushed and given in ice cream. He was cooperative with cares. He awoke after sleeping for a couple of hours and PRN trazodone was given and he as been sleeping since.
[2020-07-29 06:11] VITALS: BP 104/66
--- NOTE | 2020-07-29 06:40 | PDOC ---
Exam Note: Taurus Note: This note is a late entry for DOS 07/25/2020 and an addendum to the progress note dictated earlier for 07/25/2020. Subjective: The patient was seen face to face in the evening of 07/25/2020 with Maddy MOREL. Previous evening he was yelling, had to be put in the West hallway, put himself on the floor, quite defined earlier in the morning. WBC was 2.3 on 07/22. We will defer medical management to Dr. Sutton/Dr. Vega. Rest unchanged as previously dictated. Assessment: Vital Signs/I&O: Vital Signs Date Time Temp Pulse Resp B/P (MAP) Pulse Ox O2 Delivery O2 Flow Rate FiO2 07/29/20 06:11 97.6 70 14 104/66 (79) 99 Room Air I & O 07/28/20 07/28/20 07/29/20 15:00 23:00 07:00 Intake Total 465 ml 240 ml 120 ml Balance 465 ml 240 ml 120 ml Current Medications: I have reviewed the current psychotropics carefully including drug interactions. Risk benefit ratio favors no change other than as noted in my dictated progress note. Diagnosis: Problems: (1) Impulse control disorder, unspecified (2) Anxiety disorder, unspecified (3) Dementia, vascular, with depression (4) Dementia, vascular, with delusions (5) Major neurocognitive disorder (6) Major neurocognitive disorder, due to vascular disease, with behavioral disturbance, mild TL SAMUEL MD Jul 29, 2020 06:39
--- NOTE | 2020-07-29 06:57 | PDOC ---
Exam Note: Taurus Note: This note is a late entry for 07/27/2020 covers elements not covered in my initial note. Subjective: The patient was seen face to face in the morning of 07/27/2020 for treatment meeting with Virgen Payne Nicky (social service staff), Amanda, Activity Therapy, and Meaghan MOREL. Discussed with nursing staff, reviewed the chart. He was also seen in the evening face to face. He slept 5- 1/2 hours previous night. Appetite is 50%. He slept up to noon. He is little more compliant keeping his mask in place. Previous night he was quite convinced, he had a job here. Placement is being sought. Review of Systems: Ambulation impaired with walker. No CV, , pulmonary, eye system symptoms on review. Mental Status Exam: Oriented to himself. Insight and judgment, recent and remote memory, attention and concentration, fund of knowledge is poor consistent with his diagnoses. Laboratory Data: Reviewed. 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 Anxiety disorder unspecified. Impulse control disorder unspecified. Plan: No change from initial note. Assessment: Vital Signs/I&O: Vital Signs Date Time Temp Pulse Resp B/P (MAP) Pulse Ox O2 Delivery O2 Flow Rate FiO2 07/29/20 06:11 97.6 70 14 104/66 (79) 99 Room Air I & O 07/28/20 07/28/20 07/29/20 15:00 23:00 07:00 Intake Total 465 ml 240 ml 120 ml Balance 465 ml 240 ml 120 ml Current Medications: I have reviewed the current psychotropics carefully including drug interactions. Risk benefit ratio favors no change other than as noted in my dictated progress note. Diagnosis: Problems: (1) Impulse control disorder, unspecified (2) Anxiety disorder, unspecified (3) Dementia, vascular, with depression (4) Dementia, vascular, with delusions (5) Major neurocognitive disorder (6) Major neurocognitive disorder, due to vascular disease, with behavioral disturbance, mild TL SAMUEL MD Jul 29, 2020 06:57
--- NOTE | 2020-07-29 07:22 | PDOC ---
Exam Note: Taurus Note: This note is a late entry for 07/28/2020 covers elements not covered in my initial note. Subjective: The patient was seen face to face in the evening of 07/28/2020 with Franky MOREL. Discussed with nursing staff, reviewed the chart. The patient slept 7 hours previous night. He has been somewhat disorganized. He is confused, talking about going to the auditorium. Review of Systems: Ambulation impaired with walker. No CV, , pulmonary, eye system symptoms on review. Mental Status Exam: Oriented to himself. He is not verbal, interactive, confused. Insight and judgment, recent and remote memory, attention and concentration, fund of knowledge is poor consistent with his diagnoses. No suicidal or homicidal ideation. Laboratory Data: Reviewed. 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 Anxiety disorder unspecified. Impulse control disorder unspecified. Plan: No change from initial note. Assessment: Vital Signs/I&O: Vital Signs Date Time Temp Pulse Resp B/P (MAP) Pulse Ox O2 Delivery O2 Flow Rate FiO2 07/29/20 06:11 97.6 70 14 104/66 (79) 99 Room Air I & O 07/28/20 07/28/20 07/29/20 15:00 23:00 07:00 Intake Total 465 ml 240 ml 120 ml Balance 465 ml 240 ml 120 ml Current Medications: I have reviewed the current psychotropics carefully including drug interactions. Risk benefit ratio favors no change other than as noted in my dictated progress note. Diagnosis: Problems: (1) Impulse control disorder, unspecified (2) Anxiety disorder, unspecified (3) Dementia, vascular, with depression (4) Dementia, vascular, with delusions (5) Major neurocognitive disorder (6) Major neurocognitive disorder, due to vascular disease, with behavioral disturbance, mild TL SAMUEL MD Jul 29, 2020 07:22
[2020-07-29] MEDS: [UNRECOGNIZED DRUG - OTHER] PO SCH (09:00)
[2020-07-29] MEDS: MAGNESIUM OXIDE 400 MG TABLET PO SCH ×3 (09:00→20:53)
[2020-07-29] MEDS: MULTIVITAMIN PO SCH (09:00)
[2020-07-29] MEDS: LACTOBACILLUS RHAMNOSUS GG 1 CAPSULE. PO SCH ×2 (09:00→20:52)
[2020-07-29] MEDS: THIAMINE 100 MG TABLET. PO SCH (09:00)
[2020-07-29] MEDS: FOLIC ACID 1 MG TABLET PO SCH (09:00)
[2020-07-29] MEDS: VALPROATE ACID 250 MG/5 ML ORAL SOLUTION PO SCH ×2 (09:28→17:02)
[2020-07-29] MEDS: LOSARTAN 50 MG TABLET. PO SCH (09:28)
[2020-07-29] MEDS: METOPROLOL TART IMMED RELEASE 50 MG TABLET PO SCH ×2 (09:28→21:02)
--- NOTE | 2020-07-29 12:12 | NUR ---
Pt is calm, cooperative, complaint, and confused. No agitation, no aggression. He is compliant with his medication and assessment.
[2020-07-29 16:34] VITALS: BP 105/70
--- NOTE | 2020-07-29 17:26 | NUR ---
Pt is in his room using his bedside table as a walker. He is difficult to redirect and believe he is at work. Staff is unable to redirect him. ANGELIQUEN darius jones given.
[2020-07-29] MEDS: risperiDONE 0.5 MG TABLET. PO SCH (20:52)
[2020-07-29] MEDS: MIRTAZAPINE 7.5 MG TABLET. PO SCH (20:53)
[2020-07-29] MEDS: MELATONIN 3 MG TABLET PO SCH (20:54)
--- NOTE | 2020-07-29 22:10 | PDOC ---
Exam Note: Taurus Note: Please also refer to the separate dictated note~for this date of service dictated separately.~Patient seen individually. Discussed the patient with Nursing staff reviewed the chart.~Reviewed interim history and current functioning. Reviewed vital signs,~Labs/ Radiology~and current medications noted below. Continue current treatment with the changes noted in the dictated addendum note Assessment: Vital Signs/I&O: Vital Signs Date Time Temp Pulse Resp B/P (MAP) Pulse Ox O2 Delivery O2 Flow Rate FiO2 07/29/20 21:02 72 115/76 07/29/20 16:34 97.0 16 99 07/29/20 06:11 Room Air I & O 07/28/20 07/28/20 07/29/20 15:00 23:00 07:00 Intake Total 465 ml 240 ml 120 ml Balance 465 ml 240 ml 120 ml Current Medications: I have reviewed the current psychotropics carefully including drug interactions. Risk benefit ratio favors no change other than as noted in my dictated progress note. Diagnosis: Problems: (1) Impulse control disorder, unspecified (2) Anxiety disorder, unspecified (3) Dementia, vascular, with depression (4) Dementia, vascular, with delusions (5) Major neurocognitive disorder (6) Major neurocognitive disorder, due to vascular disease, with behavioral disturbance, mild TL SAMUEL MD Jul 29, 2020 22:10
[2020-07-30] MEDS: traZODone 50 MG TABLET. PO PRN (00:50)
--- NOTE | 2020-07-30 05:02 | NUR ---
Nursing Note The patient was located in his room for his assessment and medication pass. The was compliant during his assessment and medication pass. The patient received his medication crushed in pudding. The patient was pleasant during interactions with this nurse. The patient received PRN Trazodone@0050 per PRN order. The patient is currently sleeping in his room.
[2020-07-30 06:45] VITALS: BP 107/67
[2020-07-30 07:15] VITALS: BP 123/74
[2020-07-30 07:36] VITALS: BP 118/71
[2020-07-30 07:40] VITALS: BP 106/81
[2020-07-30 07:44] LABS: BASO % 0 % (0-3); EOS % 1 % (0-3); HEMATOCRIT 25.5 % (39.0-53.0); HEMOGLOBIN 8.7 g/dL (13.0-17.5); LYMPH # 0.5 x10^3/uL (1.0-4.8); LYMPH % 14 % (24-48); MEAN CORPUSCULAR HEMOGLOBIN 32 pg (25-35); MEAN CORPUSCULAR HGB CONC 34 g/dL (31-37); MEAN CORPUSCULAR VOLUME 95 fL (79-100); MONO # 0.3 x10^3/uL (0.0-1.1); MONO % 8 % (0-9); NEUT # 2.6 x10^3uL (1.8-7.7); NEUT % 77 % (31-73); PLATELET COUNT 111 x10^3/uL (140-400); WHITE BLOOD COUNT 3.4 x10^3/uL (4.0-11.0)
[2020-07-30 07:50] VITALS: BP 118/71
[2020-07-30 07:52] LABS: CALCIUM 8.7 mg/dL (8.5-10.1); GFR 71.5; POTASSIUM 5.1 mmol/L (3.5-5.1)
[2020-07-30 07:57] LABS: ALBUMIN 2.5 g/dL (3.4-5.0); ALBUMIN/GLOBULIN RATIO 0.8 (1.0-1.7); TOTAL BILIRUBIN 0.2 mg/dL (0.2-1.0); TOTAL PROTEIN 5.7 g/dL (6.4-8.2)
--- NOTE | 2020-07-30 08:18 | RAD ---
AP portable chest radiograph 07/30/2020 Clinical History: Rapid response. Low temperature. Dysarthria. An AP erect portable digital radiograph of the chest was obtained. Comparison study is dated 07/10/2020. The patient is slightly rotated to the right. A left-sided pacemaker is unchanged position. The cardiac silhouette is mildly enlarged. The thoracic aorta is tortuous. No acute pulmonary infiltrate is seen. No pleural effusion or pneumothorax is noted. The osseous structures are unchanged. Impression: No acute abnormality is seen. Electronically signed by: Lion Segal MD (07/30/2020 8:15 AM) [id number]
[2020-07-30 08:23] LABS: BGAS PH 7.44 (7.35-7.46)
--- NOTE | 2020-07-30 08:30 | EKG ---
[address] [address] Test Date: 2020-07-30 Test Time: 08:04:54 Pat Name: LU LANDIS Department: Room: [facility] 1 Gender: M Top Frame Maker: : 1940 Requested By: CAROLINE MCCARTY Order Number: [id number] Reading MD: Measurements Intervals Terrell Rate: 140 P: 62 MO: 64 QRS: 0 QRSD: 94 T: -99 QT: 206 QTc: 317 Interpretive Statements SINUS TACHYCARDIA LOW VOLTAGE CONSIDER RIGHT VENTRICULAR HYPERTROPHY QRS(T) CONTOUR ABNORMALITY CONSIDER ANTEROSEPTAL MYOCARDIAL DAMAGE ST & T ABNORMALITY, CONSIDER RECENT HIGH LATERAL MYOCARDIAL OR PERICARDIAL DAMAGE ABNORMAL ECG RI6.01 No previous ECG available for comparison
--- NOTE | 2020-07-30 09:20 | NUR ---
Transition Record was faxed to follow-up provider with the following elements: Reason for admission, procedures, tests, principal diagnosis, pending studies, patient instructions, 05/05 contact information for unit, phone number to obtain pending test results, plan for follow-up care, physician follow-up, advanced directive information, and medication list with dose, duration and instructions. This information was included in the following documents: History and physical, lab results, study results, progress notes, social work planning form, DC instruction form, patient visit summary, and medication reconciliation form. Date & time record faxed: [id number]/30/2020 Record faxed to: [facility] Record discussed with/ report given to: Debbie Daniels RN
--- NOTE | 2020-07-30 09:22 | NUR ---
0710: After receiving report from tank charger RN nurses obtained a rectal temp X 2 on pt. Rectal temp 92.5. Pt is arousable and cool to the touch. Nursing hospice clinical supervisor notified. While on the phone with nursing hospice clinical supervisor tank charger RN then notified dayshift RN pts bp was 60/50, nursing hospice clinical supervisor informed and nurse stated a rapid response would be initiated. Nursing hospice clinical supervisor stated she would be up. Day shift RN called a rapid response. 0722: Dr. Sutton notified: New orders received: Admit pt to tele unit dx: hypotension. CBC, CMP, ABG's, CXR, insert and maintain IV, NS 1000cc run wide open. Dr. Sutton he will be in to see the pt shortly. 0756: Pt transferred downstairs and bedside report given to Debbie 0758: Attempted to notify [facility], Daughter Sara X 2. No answer-left a message to call.
--- NOTE | 2020-07-30 22:13 | DS ---
DATE OF DISCHARGE: 07/30/2020 DISCHARGE SUMMARY/PSYCHIATRIC PROGRESS NOTE This note covers elements not covered in my initial note 07/30/2020. REASON FOR ADMISSION: Please refer to the admission history for details. Briefly, the patient is an 79-year-old male referred to us from [facility] on account of worsening confusion within the context of his significant past alcohol abuse. The patient had been agitated, refusing medications and cares. Behaviors were deemed dangerous, unmanageable at the facility, had failed outpatient psychiatric interventions resulting in this referral. SIGNIFICANT FINDINGS AND CLINICAL COURSE: Following admission, the patient was seen daily individually by myself from a psychiatric standpoint. Medical followup with Dr. Vega/Dr. Sutton. The patient was extremely anxious, restless, agitated, labile in his mood, disruptive. He was started on Depakote a couple of days after admission and gradually adjusted to reach a subtherapeutic blood level of 49, but clinically the dosage was adequate. He is also hard of hearing, which made communication harder. He finally seemed to respond to a combination of Risperdal 0.75 mg p.o. at bedtime for his marked psychotic symptoms, delusions along with trazodone 50 mg at bedtime, may repeat x 1 for insomnia, Remeron 15 mg at bedtime, Zyprexa p.r.n., melatonin 6 mg at bedtime, Depakene 250 mg at 0900, 1000 mg at 1700, Remeron 15 mg at bedtime. From a psychiatric standpoint, he was doing much better, but the discharge was delayed significantly because his facility would not accept him back ___ placement will be found; however, at this stage, on 07/30/2020, he was found to have marked hypothermia with the rectal temperature of 92.5. He was transferred to the medical/surgical floor by Dr. Sutton and prior to discharge, we did stop his Depakene, Risperdal and Remeron and these could be restarted once he is medically stabilized. REVIEW OF SYSTEMS: Prior to discharge on 07/30/2020, ambulation impaired with walker. No CV, , pulmonary, eye, ENT system symptoms. MENTAL STATUS EXAM: Oriented to himself. Insight, judgment, recent and remote memory, attention, concentration, fund of knowledge poor, consistent with his diagnosis. 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 Rest unchanged from admission. DISCHARGE MEDICATIONS: Please refer to the [facility]. DISCHARGE INSTRUCTIONS: Psychiatric and medical followup at the [facility]. Time for discharge day management greater than 30 minutes. TL SAMUEL MD DR: MARLEEN/teo JOB#: [id number] / [id number]
--- NOTE | 2020-07-31 06:49 | PDOC ---
Exam Note: Taurus Note: This note is a late entry for 07/29/2020 covers elements not covered in my initial note. Subjective: The patient was seen face to face in the evening of 07/29/2020 with Wendy MOREL. Discussed with nursing staff, reviewed the chart. The patient slept 6-1/2 hours previous night. He has been somewhat better, less anxious, restless. Review of Systems: Ambulation impaired with walker. No CV, , pulmonary, eye system symptoms on review. Reliability poor. Mental Status Exam: Oriented to himself. Insight and judgment, recent and remote memory, attention and concentration, fund of knowledge is poor consistent with his diagnoses. No suicidal or homicidal ideation. Laboratory Data: Reviewed. 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 Anxiety disorder unspecified. Impulse control disorder unspecified. Plan: No change from initial note. Assessment: Vital Signs/I&O: Vital Signs Date Time Temp Pulse Resp B/P (MAP) Pulse Ox O2 Delivery O2 Flow Rate FiO2 07/30/20 07:50 72 118/71 (87) 07/30/20 07:10 92.5 07/30/20 06:45 18 99 07/29/20 06:11 Room Air Labs: Laboratory Tests Test 07/30/20 07:30 07/30/20 08:10 White Blood Count 3.4 x10^3/uL (4.0-11.0) L Red Blood Count 2.70 x10^6/uL (4.30-5.70) L Hemoglobin 8.7 g/dL (13.0-17.5) L Hematocrit 25.5 % (39.0-53.0) L Mean Corpuscular Volume 95 fL (79-100) Mean Corpuscular Hemoglobin 32 pg (25-35) Mean Corpuscular Hemoglobin Concent 34 g/dL (31-37) Red Cell Distribution Width 15.0 % (11.5-14.5) H Platelet Count 111 x10^3/uL (140-400) L Neutrophils (%) (Auto) 77 % (31-73) H Lymphocytes (%) (Auto) 14 % (24-48) L Monocytes (%) (Auto) 8 % (0-9) Eosinophils (%) (Auto) 1 % (0-3) Basophils (%) (Auto) 0 % (0-3) Neutrophils # (Auto) 2.6 x10^3uL (1.8-7.7) Lymphocytes # (Auto) 0.5 x10^3/uL (1.0-4.8) L Monocytes # (Auto) 0.3 x10^3/uL (0.0-1.1) Eosinophils # (Auto) 0.0 x10^3/uL (0.0-0.7) Basophils # (Auto) 0.0 x10^3/uL (0.0-0.2) Sodium Level 138 mmol/L (136-145) Potassium Level 5.1 mmol/L (3.5-5.1) Chloride Level 106 mmol/L (98-107) Carbon Dioxide Level 29 mmol/L (21-32) Anion Gap 3 (6-14) L Blood Urea Nitrogen 31 mg/dL (8-26) H Creatinine 1.0 mg/dL (0.7-1.3) Estimated GFR (Cockcroft-Gault) 71.5 BUN/Creatinine Ratio 31 (6-20) H Glucose Level 63 mg/dL (70-99) L Lactic Acid Level 1.1 mmol/L (0.4-2.0) Calcium Level 8.7 mg/dL (8.5-10.1) Total Bilirubin 0.2 mg/dL (0.2-1.0) Aspartate Amino Transferase (AST) 18 U/L (15-37) Alanine Aminotransferase (ALT) 14 U/L (16-63) L Alkaline Phosphatase 45 U/L (46-116) L Total Protein 5.7 g/dL (6.4-8.2) L Albumin 2.5 g/dL (3.4-5.0) L Albumin/Globulin Ratio 0.8 (1.0-1.7) L Blood pH 7.44 (7.35-7.46) Blood Gas PCO2 36 mmHg (35-46) Blood Gas PO2 99 mmHg (71-100) Blood Gas HCO3 25 mmol/L (21-28) Arterial Bld O2 Saturation (Calc) 99 % (92-99) FiO2 21 % Current Medications: I have reviewed the current psychotropics carefully including drug interactions. Risk benefit ratio favors no change other than as noted in my dictated progress note. Diagnosis: Problems: (1) Impulse control disorder, unspecified (2) Anxiety disorder, unspecified (3) Dementia, vascular, with depression (4) Dementia, vascular, with delusions (5) Major neurocognitive disorder (6) Major neurocognitive disorder, due to vascular disease, with behavioral disturbance, mild TL SAMUEL MD Jul 31, 2020 06:49
--- NOTE | 2020-07-31 06:50 | PDOC ---
Exam Note: Taurus Note: This is a late entry for date of discharge 07/30/2020. Please also refer to the separate dictated note~for this date of service dictated separately.~Patient seen individually. Discussed the patient with Nursing staff reviewed the chart.~Reviewed interim history and current functioning. Reviewed vital signs,~Labs/ Radiology~and current medications noted below. Continue current treatment with the changes noted in the dictated addendum note Assessment: Vital Signs/I&O: Vital Signs Date Time Temp Pulse Resp B/P (MAP) Pulse Ox O2 Delivery O2 Flow Rate FiO2 07/30/20 07:50 72 118/71 (87) 07/30/20 07:10 92.5 07/30/20 06:45 18 99 07/29/20 06:11 Room Air Labs: Laboratory Tests Test 07/30/20 07:30 07/30/20 08:10 White Blood Count 3.4 x10^3/uL (4.0-11.0) L Red Blood Count 2.70 x10^6/uL (4.30-5.70) L Hemoglobin 8.7 g/dL (13.0-17.5) L Hematocrit 25.5 % (39.0-53.0) L Mean Corpuscular Volume 95 fL (79-100) Mean Corpuscular Hemoglobin 32 pg (25-35) Mean Corpuscular Hemoglobin Concent 34 g/dL (31-37) Red Cell Distribution Width 15.0 % (11.5-14.5) H Platelet Count 111 x10^3/uL (140-400) L Neutrophils (%) (Auto) 77 % (31-73) H Lymphocytes (%) (Auto) 14 % (24-48) L Monocytes (%) (Auto) 8 % (0-9) Eosinophils (%) (Auto) 1 % (0-3) Basophils (%) (Auto) 0 % (0-3) Neutrophils # (Auto) 2.6 x10^3uL (1.8-7.7) Lymphocytes # (Auto) 0.5 x10^3/uL (1.0-4.8) L Monocytes # (Auto) 0.3 x10^3/uL (0.0-1.1) Eosinophils # (Auto) 0.0 x10^3/uL (0.0-0.7) Basophils # (Auto) 0.0 x10^3/uL (0.0-0.2) Sodium Level 138 mmol/L (136-145) Potassium Level 5.1 mmol/L (3.5-5.1) Chloride Level 106 mmol/L (98-107) Carbon Dioxide Level 29 mmol/L (21-32) Anion Gap 3 (6-14) L Blood Urea Nitrogen 31 mg/dL (8-26) H Creatinine 1.0 mg/dL (0.7-1.3) Estimated GFR (Cockcroft-Gault) 71.5 BUN/Creatinine Ratio 31 (6-20) H Glucose Level 63 mg/dL (70-99) L Lactic Acid Level 1.1 mmol/L (0.4-2.0) Calcium Level 8.7 mg/dL (8.5-10.1) Total Bilirubin 0.2 mg/dL (0.2-1.0) Aspartate Amino Transferase (AST) 18 U/L (15-37) Alanine Aminotransferase (ALT) 14 U/L (16-63) L Alkaline Phosphatase 45 U/L (46-116) L Total Protein 5.7 g/dL (6.4-8.2) L Albumin 2.5 g/dL (3.4-5.0) L Albumin/Globulin Ratio 0.8 (1.0-1.7) L Blood pH 7.44 (7.35-7.46) Blood Gas PCO2 36 mmHg (35-46) Blood Gas PO2 99 mmHg (71-100) Blood Gas HCO3 25 mmol/L (21-28) Arterial Bld O2 Saturation (Calc) 99 % (92-99) FiO2 21 % Current Medications: I have reviewed the current psychotropics carefully including drug interactions. Risk benefit ratio favors no change other than as noted in my dictated progress note. Diagnosis: Problems: (1) Hypothermia (2) Impulse control disorder, unspecified (3) Anxiety disorder, unspecified (4) Dementia, vascular, with depression (5) Dementia, vascular, with delusions (6) Major neurocognitive disorder (7) Major neurocognitive disorder, due to vascular disease, with behavioral disturbance, mild (8) History of alcohol dependence TL SAMUEL MD Jul 31, 2020 06:50
== END 2020-07-30 07:56 | disposition short-term general hospital (02) | DRG 57 ==
LOC: GEROPSY 22:24
PROVIDERS: ADMIT Psychiatry & Neurology Psychiatry; ATTEND Psychiatry & Neurology Psychiatry
DX: G30.9 Alzheimer's disease, unspecified (principal); F01.51 Vascular dementia, unspecified severity, with behavioral disturbance; F02.81 Dementia in other diseases classified elsewhere, unspecified severity, with behavioral disturbance; G93.40 Encephalopathy, unspecified; I44.2 Atrioventricular block, complete; I50.32 Chronic diastolic (congestive) heart failure; N39.0 Urinary tract infection, site not specified; B96.5 Pseudomonas (aeruginosa) (mallei) (pseudomallei) as the cause of diseases classified elsewhere; E78.5 Hyperlipidemia, unspecified; F10.20 Alcohol dependence, uncomplicated; F32.9 Major depressive disorder, single episode, unspecified; K57.90 Diverticulosis of intestine, part unspecified, without perforation or abscess without bleeding; F41.9 Anxiety disorder, unspecified; F63.9 Impulse disorder, unspecified; G47.00 Insomnia, unspecified; H91.90 Unspecified hearing loss, unspecified ear; I11.0 Hypertensive heart disease with heart failure; I35.0 Nonrheumatic aortic (valve) stenosis; I48.0 Paroxysmal atrial fibrillation; K21.9 Gastro-esophageal reflux disease without esophagitis; Z66 Do not resuscitate; Z79.899 Other long term (current) drug therapy; Z80.9 Family history of malignant neoplasm, unspecified; Z85.46 Personal history of malignant neoplasm of prostate; Z91.19 Patient's noncompliance with other medical treatment and regimen; Z95.0 Presence of cardiac pacemaker; Z20.828 Contact with and (suspected) exposure to other viral communicable diseases
CPT/HCPCS: 36415; 36600; 71045; 80048; 80053; 80061; 80164; 81001; 82140; 82306; 82607; 82803; 83036; 83540; 83550; 83605; 83735; 84436; 84443; 84480; 85007; 85025; 85379; 86140; 86592; 87077; 87086; 87106; 87186; 87426; 93005; U0003

== ENCOUNTER 2020-07-30 08:46 | Inpatient (IN) | payer MEDICARE, MEDICAID ==
[~2020-07-30] VITALS: Ht 175.3 cm; Wt 70.0 kg
--- NOTE | 2020-07-30 07:20 | NUR ---
Pt transferred to room 130 shortly after shift change from [facility]. Pt was found to be hypotensive and rectal temp of 92*. On arrival patient was pale,minimally responsive. BP on arrival 90/57. EKG obtained. ABG obtained. 1L IVF bolus intitiated. Bedside report given by Vibha RN. Attempts to call family x2, voicemail left. Pt daughter called, spoke w this nurse. Update provided on patient status. Daughter wishes for DR Sutton to call and speak w her. Message passed along to Dr Sutton.
[~2020-07-30 08:46] MED LIST: ACET325T21 PO; CEFD300C PO; FOLI0.8C PO; HALO1TAB PO; IRBE300T23 PO; LACT1CAP21 PO; MAG355OR12 PO; MAGN24003 PO; MAGN400T5 PO; MELA3TAB4 PO; METH57CR17 TP; METO50TA6 PO; MIRT15TA PO; MULT-735 PO; NYST15CR TP; NYST15PO9 TP; OLAN5TAB99 PO; PEDI1TAB PO; POTA20TA4 PO; POTA20TA40 PO; QUET25TA5 PO; RISP0.5T24 PO; THIA100T57 PO; TRAZ-120 PO; VALP250S18 PO; VALP500S PO
[2020-07-30 09:24] VITALS: BP 120/77
--- NOTE | 2020-07-30 10:34 | HP ---
ADMIT DATE: 07/30/2020 ATTENDING PHYSICIAN: Dr. Mccarty. CHIEF COMPLAINT: Hypotension. HISTORY OF PRESENT ILLNESS: The patient is an 80-year-old gentleman who had been up on the [facility] for the last week. He was found to be hypotensive, blood pressure in the 60s. He is on blood pressure meds, a rapid response was called and he was moved down here to the medical floor. Normal saline was ordered and resuscitated by the time I got to see him an hour later, his blood pressure improved to 110/60. He remains quite demented. He cannot give much history. I reviewed his medication. We have stopped most of his psychiatric meds as well as his blood pressure meds. PAST MEDICAL HISTORY: Significant for longstanding alcoholic dementia, alcohol dependence, impulse control disorder, vascular dementia, depression, delusions and neurocognitive disorder. CURRENT MEDICATIONS: Reviewed. He was taking on the floor. Tylenol, folic acid, irbesartan, magnesium hydroxide, melatonin, metoprolol, Remeron, nystatin, Zyprexa Zydis, risperidone, thiamine, trazodone and Depakote. ALLERGIES: He has no known drug allergies. He is a drinker and smoker in the past. FAMILY HISTORY: Unobtainable. REVIEW OF SYSTEMS: Unobtainable. PHYSICAL EXAMINATION: GENERAL: When I saw him, this is a profoundly demented gentleman who was nonverbal and did not comprehend anything. VITAL SIGNS: Initial vital signs by the time we got him down here, blood pressure improved to 120/70, pulse is 71, temperature unable to get due to his clinical status. This will be rechecked later, oxygen saturation 96% on room air. HEENT: Head is without trauma. Pupils are reactive. Sclerae nonicteric. Oropharynx is clear. NECK: Supple, no bruits identified. LUNGS: Shallow respirations. CARDIOVASCULAR: Showed distant heart tones. No gallops. Peripheral pulses palpable and full. ABDOMEN: Soft, scaphoid, nontender, no guarding, rebound tenderness. EXTREMITIES: Show muscle wasting. No edema. NEUROLOGIC: The patient is profoundly demented and nonambulatory, nonverbal. LABORATORY DATA: Laboratory studies done on a stat basis. His hemoglobin is 8.7 g/dL with white count of 3400. Chemistry panel showed a creatinine of 1.0 mg percent, BUN 31, potassium 5.1 mEq. Hemoglobin A1c was adequate. Iron studies were low suggesting iron deficiency anemia. Transaminases were normal. Ammonia level is normal. Serology earlier this week showed a negative COVID-19 coronavirus, negative Syphilis serology. ASSESSMENT: 1. This 80-year-old gentleman had hypotension resulting in a rapid response. He was fluid resuscitated. 2. Underlying chronic alcoholism. 3. Profound dementia. 4. 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 5. Iron deficiency anemia. 6. Dementia with behavior issues. PLAN: 1. Admit to the inpatient unit. 2. He remains a DNR per advanced directive. 3. Gentle IV hydration. 4. Home meds were simplified. 5. I held his blood pressure meds. 6. Diet as tolerated. CAROLINE MCCARTY MD DR: ESTEBAN/teo JOB#: [id number] / [id number] TL Auguste MD
[2020-07-30 11:00] VITALS: BP 156/90
[2020-07-30 15:00] VITALS: BP 94/54
[2020-07-30] MEDS ORDERED: VALPROATE ACID 250 MG/5 ML ORAL SOLUTION PO SCH (17:00)
[2020-07-30] MEDS ORDERED: TEMAZEPAM 15 MG CAPSULE PO PRN (17:45)
[2020-07-30] MEDS ORDERED: IV NORMAL SALINE 1,000ML 1,000 ML IV SCH (17:45)
[2020-07-30] MEDS ORDERED: ONDANSETRON PF 4 MG/2 ML VIAL. IVP PRN (17:45)
[2020-07-30 18:17] VITALS: BP 98/66
[2020-07-30 22:45] VITALS: BP 130/73
[2020-07-31 05:24] VITALS: BP 131/76
--- NOTE | 2020-07-31 08:55 | PN ---
DATE: 07/31/2020 ATTENDING PHYSICIAN: Dr. Mccarty. CHIEF COMPLAINT: Hypotension. SUBJECTIVE: The patient is alert. He is comfortable. He is pleasantly confused. He is responsive. He is in no apparent distress. OBJECTIVE FINDINGS: VITAL SIGNS: Blood pressure is improved today at 131/76, pulse is 70 and regular, temperature 96.3 degrees Fahrenheit, oxygen saturation 99% on room air. HEENT: Head is without trauma. Pupils are reactive. Sclerae nonicteric. Oropharynx is clear. NECK: Supple, no bruits. LUNGS: Clear. CARDIOVASCULAR: Showed regular heart tones. No gallops. ABDOMEN: Soft, no guarding. EXTREMITIES: Without edema. NEUROLOGIC: Alert. Focally intact, pleasantly confused. SKIN: Warm and dry. ASSESSMENT: 1. An 80-year-old gentleman with hypotension yesterday, resulting in a rapid response call. He was fluid resuscitated. 2. Chronic alcoholism. 3. Profound dementia. 4. Wernicke-Korsakoff syndrome. 5. Iron deficiency anemia. 6. Dementia with behavioral issues. PLAN: 1. Advance diet as tolerated. 2. Discontinue IV fluid. 3. Blood pressure meds have been held. 4. Psychiatric meds have been held. He seems to be more alert today. CAROLINE MCCARTY MD DR: ESTEBAN/teo JOB#: [id number] / [id number]
[2020-07-31] MEDS ORDERED: VALPROATE ACID 250 MG/5 ML ORAL SOLUTION PO SCH (09:00)
[2020-07-31 10:29] VITALS: BP 110/75
[2020-07-31 15:25] VITALS: BP 143/74
[2020-07-31 19:20] VITALS: BP 111/69
[2020-07-31 23:08] VITALS: BP 121/79
--- NOTE | 2020-08-01 03:44 | NUR ---
Average temperature calculated for this PT from 07/07 to 07/29 was 97.5.
[2020-08-01 04:21] VITALS: BP 151/82
--- NOTE | 2020-08-01 10:01 | NUR ---
PATIENT IS RESTLESS, TRYING TO CLIME OUT OF BED, YELLING OUT LOUD. ORDER OF ZYPREXA OBTAINED FROM DR. MCCARTY TO DECREASE AGITATION. WILL CTM.
[2020-08-01 10:54] VITALS: BP 127/58
--- NOTE | 2020-08-01 11:25 | DS ---
DATE OF DISCHARGE: 08/01/2020 ATTENDING PHYSICIAN: Dr. Mccarty. FINAL DISCHARGE DIAGNOSES: 1. Hypotension, resulting rapid response. 2. Dehydration, on fluid resuscitation. 3. Hypothermia, resolved. 4. Underlying chronic alcoholism. 5. Profound dementia. 6. Wernicke-Korsakoff syndrome. 7. Iron deficiency anemia. 8. Dementia with behavioral issues. HISTORY AND PHYSICAL: This is an 80-year-old gentleman who has been in the [facility] for several months now. He was found to be hypotensive, blood pressure in the 60s. He was on blood pressure meds, Rapid Response was called. PHYSICAL EXAMINATION: Please see the dictated note. PERTINENT LABORATORY AND X-RAY STUDIES: His hemoglobin was maintained at 8.7 g/dL, white count 3400. Chemistry panel: Sodium 138, potassium 5.1 mEq, creatinine was 1.0, nonfasting blood sugar 63. COURSE IN THE HOSPITAL: The patient was transferred and admitted to the medical floor. He was given IV hydration. We held his 2 blood pressure meds. He did well. He woke up. We held some of his psych meds before restarting it. He was better, back to his baseline. At this time, placement is an issue. On the third hospital day, he was slated to go back to the [facility]. Therefore, he is discharged back with vital signs improved, blood pressures up to 121/79. He was afebrile, pulse was regular. At this time, I recommend holding his irbesartan and his metoprolol. He should continue his Tylenol, folic acid, magnesium hydroxide, melatonin, methyl salicylate, Remeron, nystatin, Zyprexa Zydis, risperidone, thiamine, trazodone and Depakote doses unchanged. He was discharged then from our hospital in stable condition with explicit instructions and followup care. TOTAL DISCHARGE TIME SPENT: 38 minutes. CAROLINE MCCARTY MD DR: ESTEBAN/teo JOB#: [id number] / [id number] [facility], [facility]
[2020-08-01 15:20] VITALS: BP 150/72
--- NOTE | 2020-08-01 15:29 | NUR ---
PATIENT IS DISCHARGED TO [facility]. CONSENT OBTAINED FROM [facility] BY ROBBIE ELIZABETH , REPORT GIVEN TO DONA MOREL.
[2020-08-01] MEDS ORDERED: TEMA15CA PO (16:51)
[2020-08-01] MEDS ORDERED: NYST15PO9 TP (16:51)
[2020-08-01] MEDS ORDERED: RISP0.5T24 PO (16:51)
[2020-08-01] MEDS ORDERED: POTA20TA4 PO (16:51)
== END 2020-08-01 15:35 | DRG 315 ==
LOC: LND 08:46 → 1 SOUTH 16:00
PROVIDERS: ADMIT Hospitalist; ATTEND Hospitalist
DX: I95.9 Hypotension, unspecified (principal); F01.51 Vascular dementia, unspecified severity, with behavioral disturbance; D50.9 Iron deficiency anemia, unspecified; E86.0 Dehydration; F10.26 Alcohol dependence with alcohol-induced persisting amnestic disorder; F32.9 Major depressive disorder, single episode, unspecified

== ENCOUNTER 2020-08-01 14:02 | Inpatient (IN) | payer MEDICARE, MEDICAID ==
[~2020-08-01] VITALS: Ht 175.3 cm; Wt 70.0 kg
--- NOTE | 2020-08-01 16:00 | NUR ---
Admission Note with Justification for Admission to [facility] Patient admitted to [facility] for protective oversight for emergency stabilization of acute psychiatric crisis. Pt admitted from: [facility] Mode of arrival: wheelchair Accompanied By: [facility] Staff Precipitating behaviors that initiated intake and admission: Patient was reporting to be calling out repeatedly, restless, and repeatedly trying to get up without assistance. Description of failure of out patient attempts at stabilization in previous setting list behavior and medication trials: Patient had all medications stopped for hypothermic and hypotensive episode. Behaviors and assessment findings upon admission: Patient is drowsy, arousable to name. He is unable to answer questions. He has small bruises scattered across his arms and legs. Plan: Admit for protective oversight for adjustment and stabilization of medications, behaviors and mood. Intense treatment regimen including groups, medication adjustments, therapy, consistent regimen for ADL's, self care, and sleep hygiene. Daily monitoring by Inpatient staff, Psychiatry, and Medical Physician.
[2020-08-01] MEDS ORDERED: ACETAMINOPHEN 325 MG TABLET PO PRN (16:45)
[2020-08-01] MEDS ORDERED: NYSTATIN TOPICAL POWDER 15GM BOTTLE. TP PRN (16:45)
[2020-08-01] MEDS ORDERED: MAG HYDROX/AL HYDROX/SIMETH 30 ML ORAL.SUSP PO PRN (16:45)
[2020-08-01] MEDS ORDERED: NYST15PO9 TP (16:51)
[2020-08-01] MEDS ORDERED: RISP0.5T24 PO (16:51)
[2020-08-01] MEDS ORDERED: TEMA15CA PO (16:51)
[2020-08-01] MEDS ORDERED: POTA20TA4 PO (16:51)
[2020-08-01] MEDS ORDERED: METHYL SALICYLATE/MENTHOL TOPICAL OINTMENT 57GM TUBE. TP SCH (17:00)
[2020-08-01] MEDS ORDERED: METHYL SALICYLATE/MENTHOL TOPICAL OINTMENT 57GM TUBE. TP PRN (17:00)
[2020-08-01] MEDS ORDERED: TEMAZEPAM 15 MG CAPSULE PO PRN (17:00)
[2020-08-01] MEDS ORDERED: MAGNESIUM HYDROXIDE 2,400 MG/30 ML ORAL.SUSP. PO PRN (17:00)
[2020-08-01] MEDS ORDERED: VALPROATE ACID 250 MG/5 ML ORAL SOLUTION PO SCH (17:15)
[2020-08-01 19:52] VITALS: BP 115/72
[2020-08-01] MEDS: MELATONIN 3 MG TABLET PO SCH (20:18)
[2020-08-01] MEDS: risperiDONE 0.5 MG TABLET. PO SCH (20:18)
[2020-08-01] MEDS: MIRTAZAPINE 15 MG TABLET PO SCH (20:19)
[2020-08-01] MEDS ORDERED: NYSTATIN 100,000 UNIT/GM TOPICAL CREAM 15GM TUBE. TP SCH (21:00)
[2020-08-01] MEDS ORDERED: traZODone 50 MG TABLET. PO SCH (21:00)
[2020-08-01] MEDS ORDERED: risperiDONE 0.5 MG TABLET. PO SCH (21:00)
[2020-08-01] MEDS ORDERED: NYSTATIN TOPICAL POWDER 15GM BOTTLE. TP SCH (21:00)
[2020-08-01] MEDS ORDERED: POTASSIUM CHLORIDE 20 MEQ TABLET.ER. PO SCH (21:00)
--- NOTE | 2020-08-01 21:56 | PDOC ---
Exam Note: Taurus Note: Please also refer to the separate dictated note~for this date of service dictated separately.~Patient seen individually. Discussed the patient with Nursing staff reviewed the chart.~Reviewed interim history and current functioning. Reviewed vital signs,~Labs/ Radiology~and current medications noted below. Continue current treatment with the changes noted in the dictated addendum note Assessment: Vital Signs/I&O: Vital Signs Date Time Temp Pulse Resp B/P (MAP) Pulse Ox O2 Delivery O2 Flow Rate FiO2 08/01/20 19:52 97.4 81 18 115/72 (86) 96 Current Medications: Meds: Current Medications Medications (Trade) Dose Ordered Sig/Lit Route PRN Reason Start Time Stop Time Status Last Admin Dose Admin Melatonin (Melatonin) 6 mg QHS PO 08/01/20 21:00 08/01/20 20:18 Valproic Acid (Depakene) 1,000 mg 1700 PO 08/01/20 17:15 08/01/20 19:33 DC 08/01/20 17:24 Mirtazapine (Remeron) 7.5 mg HS PO 08/01/20 21:00 08/01/20 20:19 Risperidone (RisperDAL) 0.5 mg QHS PO 08/01/20 21:00 08/01/20 20:18 I have reviewed the current psychotropics carefully including drug interactions. Risk benefit ratio favors no change other than as noted in my dictated progress note. Diagnosis: Problems: (1) Impulse control disorder, unspecified (2) Anxiety disorder, unspecified (3) Dementia, vascular, with depression (4) Dementia, vascular, with delusions (5) Major neurocognitive disorder (6) Major neurocognitive disorder, due to vascular disease, with behavioral disturbance, mild TL SAMUEL MD Aug 01, 2020 21:56
[2020-08-01] MEDS: traZODone 50 MG TABLET. PO PRN (22:17)
--- NOTE | 2020-08-01 22:32 | NUR ---
Pt located in his bed this evening. Pt initially very drowsy, barely waking up enough to consume his crushed medications in one bite of pudding. Pt later became increasingly restless in bed setting off his bed alarm numerous times while attempting to climb out of bed. PRN Trazodone administered at 2215. Pt currently laying in bed awake. Will continue to monitor.
[2020-08-02 06:08] VITALS: BP 166/88
[2020-08-02 06:33] LABS: ALBUMIN 2.4 g/dL (3.4-5.0); ALBUMIN/GLOBULIN RATIO 0.6 (1.0-1.7); CALCIUM 8.9 mg/dL (8.5-10.1); CREATININE 0.9 mg/dL (0.7-1.3); GFR 80.8; POTASSIUM 4.1 mmol/L (3.5-5.1); TOTAL BILIRUBIN 0.4 mg/dL (0.2-1.0); TOTAL PROTEIN 6.2 g/dL (6.4-8.2)
[2020-08-02 06:51] LABS: HEMATOCRIT 25.5 % (39.0-53.0); HEMOGLOBIN 8.5 g/dL (13.0-17.5); MEAN CORPUSCULAR HEMOGLOBIN 31 pg (25-35); MEAN CORPUSCULAR HGB CONC 33 g/dL (31-37); MEAN CORPUSCULAR VOLUME 94 fL (79-100); PLATELET COUNT 109 x10^3/uL (140-400); RED BLOOD COUNT 2.71 x10^6/uL (4.30-5.70); WHITE BLOOD COUNT 3.1 x10^3/uL (4.0-11.0)
[2020-08-02] MEDS ORDERED: THIAMINE 100 MG TABLET. PO SCH (09:00)
[2020-08-02] MEDS ORDERED: [UNRECOGNIZED DRUG - REMARK] PO SCH ×2 (09:00)
[2020-08-02] MEDS ORDERED: risperiDONE 0.5 MG TABLET. PO SCH (09:00)
[2020-08-02] MEDS ORDERED: FOLIC ACID 1 MG TABLET PO SCH (09:00)
[2020-08-02] MEDS ORDERED: VALPROATE ACID 250 MG/5 ML ORAL SOLUTION PO SCH (09:00)
[2020-08-02 09:07] LABS: % BANDS 2 % (0-9); % EOS 1 % (0-5); % LYMPHS 13 % (24-48); % MONOS 6 % (0-10); % SEGS 78 % (35-66)
[2020-08-02 09:08] LABS: PLT ESTIMATE DECREASED (ADEQUATE)
[2020-08-02] MEDS: MAGNESIUM OXIDE 400 MG TABLET PO SCH ×3 (09:19→19:58)
--- NOTE | 2020-08-02 10:32 | NUR ---
PATIENT IS AWAKE LOCATED IN A QUIET ROOM THIS AM UPON ASSESSMENT. PATIENT WAS ASSISTED WITH ADLS, PT/OT WAS IN A PT ROOM THIS AM TO ASSIST/EVALUATE WITH DRESSING AND TRANSFERRING TO W/C. PT WAS RESISTIVE WITH ASSISTANCE, STATING " GET YOUR HANDS AWAY FROM ME", " MOVE YOUR HAND IT'S ON THE WAY". PATIENT WAS REDIRECTED, INSTRUCTED TO LET STAFF ASSIST TO PREVENT FALLS. PATIENT WAS MOVED TO THE PT ROOM FOR MEALS AND MED ADMINISTRATION, PT WAS CALM AND COMPLIANT WITH ASSESSMENT TOOK MEDS CRUSHED IN PUDDING. THIS RN ASKED PATIENT HOW WAS HE DOING/FEELING TODAY. PATIENT STATED " IT DEPENDS, I CAN JUST SIT AND LOOK IN THE WINDOW". PATIENT STATED HIS BREAKFAST IS NOT SO GREAT BUT WAS UNABLE TO SPECIFY WHICH PART OF BREAKFAST HE DID NOT LIKE. PATIENT HAS CHAIR ALARM ON. WILL CONTINUE TO MONITOR.
--- NOTE | 2020-08-02 15:19 | NUR ---
PATIENT BECAME ARGUMENTATIVE THIS AFTERNOON, INTERRUPTING STAFF DURING CONVERSATION, REFUSING TO FOLLOW DIRECTION, RAISING VOICE AT STAFF WHEN ELECTRICIAN MAINTENANCE WAS TRYING TO ASSIST WITH CLOTHES, PATIENT WAS TRYING TO REACH AND GRAB THIS RN WILLOW DEGROOT PT WAS REDIRECTED TO STOP HE DOES NOT HAVE PERMISSION TO DO SO. PATIENT CONTINUED TO SPEAK WITH THIS RN IN DEMANDING MANNER. PATIENT WAS INSTRUCTED TO BE RESPECTFUL TOWARD STAFF. WILL CTM.
[2020-08-02 15:44] VITALS: BP 155/80
[2020-08-02] MEDS: traZODone 50 MG TABLET. PO PRN (19:58)
[2020-08-02] MEDS: MIRTAZAPINE 15 MG TABLET PO SCH (19:58)
[2020-08-02] MEDS: MELATONIN 3 MG TABLET PO SCH (19:58)
[2020-08-02] MEDS: risperiDONE 0.5 MG TABLET. PO SCH (19:59)
--- NOTE | 2020-08-02 22:00 | PDOC ---
Exam Note: Taurus Note: Please also refer to the separate dictated note~for this date of service dictated separately.~Patient seen individually. Discussed the patient with Nursing staff reviewed the chart.~Reviewed interim history and current functioning. Reviewed vital signs,~Labs/ Radiology~and current medications noted below. Continue current treatment with the changes noted in the dictated addendum note Assessment: Vital Signs/I&O: Vital Signs Date Time Temp Pulse Resp B/P (MAP) Pulse Ox O2 Delivery O2 Flow Rate FiO2 08/02/20 15:44 96.0 94 17 155/80 (105) 100 Room Air I & O 08/01/20 08/01/20 08/02/20 15:00 23:00 07:00 Intake Total 480 ml Balance 480 ml Labs: Laboratory Tests Test 08/02/20 06:06 White Blood Count 3.1 x10^3/uL (4.0-11.0) L Red Blood Count 2.71 x10^6/uL (4.30-5.70) L Hemoglobin 8.5 g/dL (13.0-17.5) L Hematocrit 25.5 % (39.0-53.0) L Mean Corpuscular Volume 94 fL (79-100) Mean Corpuscular Hemoglobin 31 pg (25-35) Mean Corpuscular Hemoglobin Concent 33 g/dL (31-37) Red Cell Distribution Width 15.0 % (11.5-14.5) H Platelet Count 109 x10^3/uL (140-400) L Segmented Neutrophils % 78 % (35-66) H Band Neutrophils % 2 % (0-9) Lymphocytes % 13 % (24-48) L Monocytes % 6 % (0-10) Eosinophils % 1 % (0-5) Platelet Estimate Decreased (ADEQUATE) Sodium Level 141 mmol/L (136-145) Potassium Level 4.1 mmol/L (3.5-5.1) Chloride Level 108 mmol/L (98-107) H Carbon Dioxide Level 27 mmol/L (21-32) Anion Gap 6 (6-14) Blood Urea Nitrogen 22 mg/dL (8-26) Creatinine 0.9 mg/dL (0.7-1.3) Estimated GFR (Cockcroft-Gault) 80.8 BUN/Creatinine Ratio 24 (6-20) H Glucose Level 66 mg/dL (70-99) L Calcium Level 8.9 mg/dL (8.5-10.1) Total Bilirubin 0.4 mg/dL (0.2-1.0) Aspartate Amino Transferase (AST) 20 U/L (15-37) Alanine Aminotransferase (ALT) 14 U/L (16-63) L Alkaline Phosphatase 49 U/L (46-116) Total Protein 6.2 g/dL (6.4-8.2) L Albumin 2.4 g/dL (3.4-5.0) L Albumin/Globulin Ratio 0.6 (1.0-1.7) L Current Medications: Meds: Current Medications Medications (Trade) Dose Ordered Sig/Lit Route PRN Reason Start Time Stop Time Status Last Admin Dose Admin Folic Acid (Folic Acid) 1 mg DAILY PO 08/02/20 09:00 08/02/20 09:19 Magnesium Oxide (Magnesium Oxide) 400 mg TID PO 08/02/20 09:00 08/02/20 19:58 Thiamine HCl (Vitamin B-1) 100 mg DAILY PO 08/02/20 09:00 08/02/20 09:19 Non-Formulary Medication (Pediatric Multivit Comb No.136 (Children Multivitamin)) 1 each DAILY PO 08/02/20 09:00 08/02/20 09:19 I have reviewed the current psychotropics carefully including drug interactions. Risk benefit ratio favors no change other than as noted in my dictated progress note. Diagnosis: Problems: (1) Impulse control disorder, unspecified (2) Anxiety disorder, unspecified (3) Dementia, vascular, with depression (4) Dementia, vascular, with delusions (5) Major neurocognitive disorder (6) Major neurocognitive disorder, due to vascular disease, with behavioral disturbance, mild TL SAMUEL MD Aug 02, 2020 22:00
--- NOTE | 2020-08-02 22:19 | HP ---
ADMIT DATE: 08/01/2020 PSYCHIATRIC ADMISSION HISTORY/EVALUATION This late entry 08/01/2020 covers elements not covered in my initial note. [place] is also referred to my psychiatric consultation and prior admission history and discharge summary. IDENTIFYING DATA: The patient is an 80-year-old male who returns back to us after he was medically stabilized in [facility] medical/surgical floor for his hypothermia, having being transferred there from [facility]. He was initially admitted with us about 6 weeks previously from the nursing facility on account of significant past history of alcohol abuse and alcohol-related dementia, delusions with agitation, aggression, disruptive, unmanageable and dangerous behaviors. The facility would not take him back and social service staff are diligently finding appropriate placement for him at this stage, he developed hypothermia, was transferred to the medical/surgical floor, stabilized and now returns back. I had a conference call with Katie patient case manager on the medical/surgical floor; Shruthi, community relations advisor and Wally, social service staff on 08/01/2020 prior to accepting the patient back on the unit since he had no placement. No facility is willing to take him. Behaviors remained ongoing disruptive, restless, agitated, paranoid. CHIEF COMPLAINT: "It is all the same. You asked me the same questions." HISTORY OF PRESENT ILLNESS: The patient has a history of major neurocognitive disorder related to alcohol with a questionable history of Wernicke-Korsakoff syndrome, though he does not seem to meet full criteria for that diagnosis. Additional factors related to his dementia including vascular, possibly Alzheimer's. The patient has had sleep and appetite changes, paranoia, agitation. PAST PSYCHIATRIC HISTORY: As above. MEDICAL HISTORY: Coronary artery disease, pacemaker in place with internal defibrillator, diverticulosis, GERD, history of alcohol abuse, CA prostate. DIET: Cardiac. Sodium controlled. Meds crushed and hidden in ice cream. Ambulates uses walker. CODE STATUS: DNR. ALLERGIES: Negative. CURRENT PSYCHOTROPICS: MRAD was reviewed. Valproic acid level on 07/21/2020 was 49, slightly subtherapeutic. FAMILY HISTORY: Noncontributory. 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 Extensive history of past alcohol abuse. No physical, sexual or elder abuse history is noted. Not known to be a perpetrator. MENTAL STATUS EXAMINATION: The patient was seen individually evening of 08/01/2020. Insight, judgment, recent and remote memory, attention, concentration, fund of knowledge poor, consistent with his diagnosis. IMPRESSION: Major neurocognitive disorder, multifactorial, alcohol, vascular, possibly Alzheimer's with delusion, depression, behavioral disturbance, rule out Wernicke-Korsakoff syndrome; anxiety disorder, unspecified; impulse control disorder, unspecified. Rest same as above. PLAN: Admit to Geropsychiatry Unit at [facility]. I will see the patient daily individually from a psychiatric standpoint. Medical followup per Dr. Vega/Dr. Sutton. Continue current psychotropics. Adjust further as clinically indicated. Estimated length of stay 5-7 days. Transition to senior care when placement arranged by social service staff. MAN Nancy SAMUEL MD DR: MARLENE/teo JOB#: [id number] / [id number]
--- NOTE | 2020-08-03 00:19 | NUR ---
Nursing Note Pt argumentative this PM, unsafe getting out of the chair, combative at times when staff attempting to keep him safe from falling. Zyprexa and Restoril given right around HS time. Was very loud and angry with staff hitting out at times with redirection. Yelling "Get to work, don't you know what you are doing around here??" Constant movement noted and highly irritable.
[2020-08-03 06:13] VITALS: BP 155/85
--- NOTE | 2020-08-03 06:43 | NUR ---
Nursing Note Transition Record was faxed to follow-up provider with the following elements: Reason for admission, procedures, tests, principal diagnosis, pending studies, patient instructions, 05/05 contact information for unit, phone number to obtain pending test results, plan for follow-up care, physician follow-up, advanced directive information, and medication list with dose, duration and instructions. This information was included in the following documents: History and physical, lab results, study results, progress notes, social work planning form, DC instruction form, patient visit summary, and medication reconciliation form. Date & time record faxed:08/03/20 [id number] Record faxed to: ICU [facility] Record discussed with/ report given to: [facility]
--- NOTE | 2020-08-03 07:59 | PDOC ---
Exam Note: Taurus Note: This note is a late entry for 08/02/2020 covers elements not covered in my initial note. Subjective: The patient was reviewed on telehealth rounds in the evening of 08/02/2020 with Sana MOREL. Discussed with nursing staff, reviewed the chart. The patient slept 4-1/2 hours previous night. He is somewhat anxious, restless, at times confused, more agitated in the evening. He appears somewhat dysphoric and depressed as I met with him. Review of Systems: Ambulation impaired with walker. No CV, , pulmonary, eye system symptoms on review. Mental Status Exam: Oriented to himself. Insight and judgment, recent and remote memory, attention and concentration, fund of knowledge is poor consistent with his diagnoses. Laboratory Data: Reviewed. 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 Anxiety disorder unspecified. Impulse control disorder unspecified. Plan: No change from initial note. Start Zoloft 25 mg a day. Make further adjustments as clinically indicated. Assessment: Vital Signs/I&O: Vital Signs Date Time Temp Pulse Resp B/P (MAP) Pulse Ox O2 Delivery O2 Flow Rate FiO2 08/03/20 06:13 91.6 70 16 155/85 (108) 100 Room Air I & O 08/02/20 08/02/20 08/03/20 15:00 23:00 07:00 Intake Total 550 ml 325 ml 120 ml Balance 550 ml 325 ml 120 ml Current Medications: Meds: Current Medications Medications (Trade) Dose Ordered Sig/Lit Route PRN Reason Start Time Stop Time Status Last Admin Dose Admin Folic Acid (Folic Acid) 1 mg DAILY PO 08/02/20 09:00 08/03/20 07:04 DC 08/02/20 09:19 Magnesium Oxide (Magnesium Oxide) 400 mg TID PO 08/02/20 09:00 08/03/20 07:04 DC 08/02/20 19:58 Thiamine HCl (Vitamin B-1) 100 mg DAILY PO 08/02/20 09:00 08/03/20 07:04 DC 08/02/20 09:19 Non-Formulary Medication (Pediatric Multivit Comb No.136 (Children Multivitamin)) 1 each DAILY PO 08/02/20 09:00 08/03/20 07:04 DC 08/02/20 09:19 I have reviewed the current psychotropics carefully including drug interactions. Risk benefit ratio favors no change other than as noted in my dictated progress note. Diagnosis: Problems: (1) Impulse control disorder, unspecified (2) Anxiety disorder, unspecified (3) Dementia, vascular, with depression (4) Dementia, vascular, with delusions (5) Major neurocognitive disorder (6) Major neurocognitive disorder, due to vascular disease, with behavioral d isturbance, mild TL SAMUEL MD Aug 03, 2020 07:59
[2020-08-03] MEDS ORDERED: SERTRALINE 25 MG TABLET. PO SCH (09:00)
--- NOTE | 2020-08-03 22:02 | PDOC ---
Exam Note: Taurus Note: Please also refer to the separate dictated note~for this date of service dictated separately.~Patient seen individually. Discussed the patient with Nursing staff reviewed the chart.~Reviewed interim history and current functioning. Reviewed vital signs,~Labs/ Radiology~and current medications noted below. Continue current treatment with the changes noted in the dictated addendum note Assessment: Vital Signs/I&O: Vital Signs Date Time Temp Pulse Resp B/P (MAP) Pulse Ox O2 Delivery O2 Flow Rate FiO2 08/03/20 06:13 91.6 70 16 155/85 (108) 100 Room Air I & O 08/02/20 08/02/20 08/03/20 15:00 23:00 07:00 Intake Total 550 ml 325 ml 120 ml Balance 550 ml 325 ml 120 ml Current Medications: I have reviewed the current psychotropics carefully including drug interactions. Risk benefit ratio favors no change other than as noted in my dictated progress note. Diagnosis: Problems: (1) Impulse control disorder, unspecified (2) Anxiety disorder, unspecified (3) Dementia, vascular, with depression (4) Dementia, vascular, with delusions (5) Major neurocognitive disorder (6) Major neurocognitive disorder, due to vascular disease, with behavioral disturbance, mild (7) History of alcohol dependence TL SAMUEL MD Aug 03, 2020 22:02
--- NOTE | 2020-08-04 22:54 | DS ---
DATE OF DISCHARGE: 08/03/2020 DISCHARGE SUMMARY/PSYCHIATRIC PROGRESS NOTE This late entry, date of service 08/03/2020, covers elements not covered in my initial note. REASON FOR ADMISSION: Please refer to the admission history for details. Briefly, the patient is an 80-year-old male with significant neurocognitive deficits, multifactorial, possibly secondary to his past heavy alcohol abuse, vascular Alzheimer's with delusion, depression, behavioral disturbance. He was initially referred to us from the nursing facility he lived at briefly, but they were unable to manage his behaviors. He was stabilized, but the facility would not have him return back there and social service staff were looking for an alternate placement for him. He had previously been to the medical/surgical floor once, but on 08/03/2020, he was significantly hypothermic and was transferred back to the medical/surgical floor for management. REVIEW OF SYSTEMS: Prior to discharge, no CV, , pulmonary, eye system symptoms on review. Gait unsteady. Reliability poor. MENTAL STATUS EXAM: Oriented to himself. Insight, judgment, recent and remote memory, attention, concentration, fund of knowledge poor, consistent with his diagnosis. FINAL DIAGNOSES: Major neurocognitive disorder, multifactorial, possibly due to alcohol, vascular with delusion, depression, behavioral disturbance, rule out Wernicke-Korsakoff syndrome, impulse control disorder; anxiety disorder, unspecified. Rest unchanged from admission. DISCHARGE MEDICATIONS: Please refer to the MRAD and may consider bringing him back to our unit if he still meets criteria once he is medically stable. MAN Nancy SAMUEL MD DR: MARLEEN/teo JOB#: [id number] / [id number]
== END 2020-08-03 07:04 | disposition short-term general hospital (02) | DRG 56 ==
LOC: GEROPSY 15:40
PROVIDERS: ADMIT Psychiatry & Neurology Psychiatry; ATTEND Psychiatry & Neurology Psychiatry
DX: G30.9 Alzheimer's disease, unspecified (principal); E43 Unspecified severe protein-calorie malnutrition; F01.51 Vascular dementia, unspecified severity, with behavioral disturbance; F02.81 Dementia in other diseases classified elsewhere, unspecified severity, with behavioral disturbance; F10.10 Alcohol abuse, uncomplicated; F32.9 Major depressive disorder, single episode, unspecified; F41.9 Anxiety disorder, unspecified; Z66 Do not resuscitate; K21.9 Gastro-esophageal reflux disease without esophagitis; K57.90 Diverticulosis of intestine, part unspecified, without perforation or abscess without bleeding; F63.9 Impulse disorder, unspecified; I25.10 Atherosclerotic heart disease of native coronary artery without angina pectoris; Z85.46 Personal history of malignant neoplasm of prostate; Z95.0 Presence of cardiac pacemaker; Z20.828 Contact with and (suspected) exposure to other viral communicable diseases; Z68.22 Body mass index [BMI] 22.0-22.9, adult
CPT/HCPCS: 36415; 80053; 85007; 85025; U0003

== ENCOUNTER 2020-08-03 06:27 | Inpatient (IN) | payer MEDICARE, MEDICAID ==
[~2020-08-03] VITALS: Ht 175.3 cm; Wt 70.8 kg
[2020-08-03] VITALS (13 sets, daily range): BP systolic 88–134; BP diastolic 39–98
[~2020-08-03 06:27] MED LIST changes: +MIRT-37 PO; -MIRT15TA PO; +TEMA15CA PO
--- NOTE | 2020-08-03 07:15 | NUR ---
PT BROUGHT TO ICU ROOM 3 IN WHEELCHAIR BY [facility] STAFF. ASSISTED X2 TO BED BY LIFTING PATIENT. DROWSY/SLEEPY AT THIS TIME. RECTAL TEMPERATURE 90.1. WARMING DEVICE APPLIED UNDER PATIENT WITH RECTAL TEMP MONITORING AT THIS TIME. MULTIPLE WARMED BLANKETS APPLIED TO PATIENT. VSS OTHERWISE (SEE CHART). DR FERRELL WILL BE CALLED TO CLARIFY ORDERS. WCM.
[2020-08-03] MEDS ORDERED: ONDANSETRON PF 4 MG/2 ML VIAL. IVP PRN (07:30)
[2020-08-03] MEDS ORDERED: ACETAMINOPHEN 325 MG TABLET PO PRN ×2 (07:30→14:45)
[2020-08-03 08:32] LABS: BASO % 0 % (0-3); EOS # 0.1 x10^3/uL (0.0-0.7); EOS % 2 % (0-3); HEMATOCRIT 24.3 % (39.0-53.0); HEMOGLOBIN 8.1 g/dL (13.0-17.5); LYMPH # 0.3 x10^3/uL (1.0-4.8); LYMPH % 12 % (24-48); MEAN CORPUSCULAR HEMOGLOBIN 32 pg (25-35); MEAN CORPUSCULAR HGB CONC 33 g/dL (31-37); MEAN CORPUSCULAR VOLUME 95 fL (79-100); MONO # 0.2 x10^3/uL (0.0-1.1); MONO % 8 % (0-9); NEUT # 2.3 x10^3uL (1.8-7.7); NEUT % 78 % (31-73); PLATELET COUNT 101 x10^3/uL (140-400); RED BLOOD COUNT 2.55 x10^6/uL (4.30-5.70); RED CELL DISTRIBUTION WIDTH 14.9 % (11.5-14.5); WHITE BLOOD COUNT 2.9 x10^3/uL (4.0-11.0)
[2020-08-03] MEDS: IV NORMAL SALINE 1,000ML 1,000 ML IV SCH ×2 (08:39→17:18)
[2020-08-03 08:40] LABS: ALBUMIN 2.3 g/dL (3.4-5.0); ALBUMIN/GLOBULIN RATIO 0.7 (1.0-1.7); CALCIUM 8.9 mg/dL (8.5-10.1); CREATININE 0.8 mg/dL (0.7-1.3); GFR 92.5; POTASSIUM 3.8 mmol/L (3.5-5.1); TOTAL BILIRUBIN 0.3 mg/dL (0.2-1.0); TOTAL PROTEIN 5.8 g/dL (6.4-8.2)
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
--- NOTE | 2020-08-03 14:44 | NUR ---
UPDATE: PT RECTAL TEMPERATURE READING 98.9. TURNED OFF HYPOTHERMIC BLANKET AND WILL CONTINUE MONITORING RECTAL TEMPERATURE
[2020-08-03] MEDS ORDERED: NYSTATIN TOPICAL POWDER 15GM BOTTLE. TP PRN (14:45)
[2020-08-03] MEDS ORDERED: MAG HYDROX/AL HYDROX/SIMETH 30 ML ORAL.SUSP PO PRN (14:45)
[2020-08-03] MEDS ORDERED: MAGNESIUM HYDROXIDE 2,400 MG/30 ML ORAL.SUSP. PO PRN (15:00)
[2020-08-03 15:21] LABS: FREE T4 0.91 ng/dL (0.76-1.46); THYROID STIM HORMONE (TSH) 6.434 uIU/mL (0.358-3.740)
--- NOTE | 2020-08-03 15:34 | RAD ---
EXAM: CHEST 1 VIEW History: Shortness of breath, altered mental status COMPARISON: 07/30/2020. TECHNIQUE: Single portable radiograph of the chest FINDINGS: Mild cardiomegaly. Left-sided cardiac pacer AICD is identified. Minimal bibasilar lung airspace opacities likely atelectasis or infiltrates. IMPRESSION: Minimal bibasilar lung airspace opacities likely atelectasis or infiltrates. Electronically signed by: Satish Cortez MD (08/03/2020 3:31 PM) [id number]
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
[2020-08-03] MEDS ORDERED: METHYL SALICYLATE/MENTHOL TOPICAL OINTMENT 57GM TUBE. TP PRN (17:00)
[2020-08-03] MEDS: NYSTATIN 100,000 UNIT/GM TOPICAL CREAM 15GM TUBE. TP SCH (21:00)
[2020-08-04] VITALS (13 sets, daily range): BP systolic 121–153; BP diastolic 61–95
[2020-08-04] MEDS: IV NORMAL SALINE 1,000ML 1,000 ML IV SCH (04:21)
[2020-08-04 06:23] LABS: HEMATOCRIT 25.6 % (39.0-53.0); HEMOGLOBIN 8.5 g/dL (13.0-17.5); RED BLOOD COUNT 2.67 x10^6/uL (4.30-5.70); RED CELL DISTRIBUTION WIDTH 15.2 % (11.5-14.5); WHITE BLOOD COUNT 4.6 x10^3/uL (4.0-11.0)
[2020-08-04 06:34] LABS: ALBUMIN 2.5 g/dL (3.4-5.0); ALBUMIN/GLOBULIN RATIO 0.7 (1.0-1.7); CREATININE 0.9 mg/dL (0.7-1.3); GFR 80.8; TOTAL BILIRUBIN 0.5 mg/dL (0.2-1.0); TOTAL PROTEIN 6.2 g/dL (6.4-8.2)
[2020-08-04] MEDS: THIAMINE 100 MG TABLET. PO SCH (09:06)
[2020-08-04] MEDS: MAGNESIUM OXIDE 400 MG TABLET PO SCH ×3 (09:06→20:40)
[2020-08-04] MEDS: FOLIC ACID 1 MG TABLET PO SCH (09:06)
[2020-08-04] MEDS: NYSTATIN 100,000 UNIT/GM TOPICAL CREAM 15GM TUBE. TP SCH ×2 (09:08→21:00)
[2020-08-04] MEDS: [UNRECOGNIZED DRUG - REMARK] PO SCH (12:13)
--- NOTE | 2020-08-04 14:00 | NUR ---
SIMONE contacted pt dtr to inform her that [facility] did not feel that pt was appropriate for hospice at this time. Pt dtr questioned next steps; she does not wish to "aid pt in dying" but also does not want pt to suffer if he is going to continue on a downhill slope. SIMONE explained that she is not sure what medications can be given and that must be a discussion between the psychiatrist and the hospitalist to ensure that pt does not become hypothermic again. Pt dtr is concerned that if pt continues to have behaviors that facilities will not take him. SIMONE will further discuss this with the team and get back to pt dtr on next steps.
[2020-08-04] MEDS: busPIRone 5 MG TABLET. PO SCH ×2 (15:52→20:40)
[2020-08-04] MEDS: DIVALPROEX 125 MG CAP.SPRINK PO SCH (16:19)
[2020-08-05 06:33] LABS: HEMATOCRIT 25.4 % (39.0-53.0); HEMOGLOBIN 8.5 g/dL (13.0-17.5); RED BLOOD COUNT 2.69 x10^6/uL (4.30-5.70); WHITE BLOOD COUNT 4.1 x10^3/uL (4.0-11.0)
[2020-08-05 06:48] LABS: ALBUMIN 2.3 g/dL (3.4-5.0); ALBUMIN/GLOBULIN RATIO 0.6 (1.0-1.7); CREATININE 1.1 mg/dL (0.7-1.3); GFR 64.1; TOTAL BILIRUBIN 0.6 mg/dL (0.2-1.0); TOTAL PROTEIN 6.2 g/dL (6.4-8.2)
[2020-08-05 07:06] VITALS: BP 109/86
[2020-08-05] MEDS: busPIRone 5 MG TABLET. PO SCH (08:24)
[2020-08-05] MEDS: THIAMINE 100 MG TABLET. PO SCH (08:24)
[2020-08-05] MEDS: DIVALPROEX 125 MG CAP.SPRINK PO SCH (08:24)
[2020-08-05] MEDS: FOLIC ACID 1 MG TABLET PO SCH (08:25)
[2020-08-05] MEDS: MAGNESIUM OXIDE 400 MG TABLET PO SCH ×2 (08:25→15:53)
[2020-08-05] MEDS: [UNRECOGNIZED DRUG - REMARK] PO SCH (08:29)
[2020-08-05] MEDS: NYSTATIN 100,000 UNIT/GM TOPICAL CREAM 15GM TUBE. TP SCH ×2 (09:00→21:48)
[2020-08-05 10:44] VITALS: BP 116/61
--- NOTE | 2020-08-05 12:57 | PN ---
DATE: 08/05/2020 SUBJECTIVE: The patient is resting, slightly propped up in bed, in no apparent distress. He is awake, alert, does not seem to be agitated today. He was not combative according to nursing staff; however, his intake has continued to be poor despite the fact that he was now on a pureed diet with nectar thickened liquid. Nursing staff stated that the patient has been complaining of pain in his right forearm. The dorsum of his hand and the distal part of his right forearm is definitely swollen. He has also some tenderness in the right wrist joint. There is no history of fall or trauma. Nursing staff stated that he might have an IV line that was placed and might have caused the swelling. OBJECTIVE: GENERAL: When I examined him, he looked pale, but no jaundice, cyanosis or thyromegaly. No jugular venous distention. No limb edema. VITAL SIGNS: Her heart rate was 102, blood pressure was 116/61, temperature was 98.3, respiratory rate was 20 and oxygen saturation was 97% on room air. HEENT: Examination of head, eyes, ears, nose and throat, normocephalic, atraumatic. NECK: Supple. HEART: Showed normal first and second heart sounds. No gallop or murmur. CHEST: Clear to auscultation. No crepitation or rhonchi. ABDOMEN: Distended, soft, nontender. NEUROLOGIC: He is definitely more awake, alert and seemed to be calmer today. All his cranial nerves seemed to be intact. He moves extremities without difficulty, although he is mostly bedbound. EXTREMITIES: Examination of the right forearm and hand showed that he clearly has markedly swollen right hand and right forearm with tenderness over the right wrist joint. His intake over the last 24 hours was 2015, no output was recorded. LABORATORY DATA: Her lab work this morning showed a white cell count 4000, hemoglobin 8.5, hematocrit 25, MCV 94 and platelet count of 95,000. Serum sodium was 141, potassium 4, chloride 111, bicarbonate 21, anion gap of 9, BUN 15, creatinine 1.1, estimated GFR was 64 mL per minute. Her glucose was 84, calcium was 9. Total bilirubin, AST, ALT, alkaline phosphatase were normal. Total protein 6.2, albumin was 2.3. ASSESSMENT: The patient was admitted with hypothermia that has resolved. He is now normothermic. His temperature today is 98.3. The patient has multiple other medical problems including: A. Hypertension. B. Hyperlipidemia. C. Paroxysmal atrial fibrillation. D. Complete heart block, status post permanent pacemaker. He is known to have aortic stenosis and chronic diastolic congestive heart failure. F. Gastroesophageal reflux disease. G. Prostate cancer. H. Chronic alcohol abuse. PLAN: I did speak with Dr. Hauser yesterday and we did start him on Depakote 250 mg twice a day using the Sprinkle variety at 9 and 5. He also started him on buspirone 5 mg twice a day. We will check the valproic acid level on Friday. Meanwhile, I will arrange for him to have an x-ray of his right forearm as well as venous Doppler ultrasound of the right upper extremity. CHANTALE FERRELL MD DR: BHAVIN/teo JOB#: [id number] / [id number]
--- NOTE | 2020-08-05 13:09 | RAD ---
Right upper extremity venous Doppler dated 08/05/2020. No comparison available. Clinical data indication: Hand and arm swelling. FINDINGS: Grayscale, color-flow and spectral waveform analysis performed to include the deep venous system of the right upper extremity. There is normal compressibility, phasicity and augmentation of flow. No filling defects are seen. IMPRESSION: No evidence of right upper extremity deep vein thrombosis. Electronically signed by: Riky Sandoval MD (08/05/2020 1:06 PM) [id number]
--- NOTE | 2020-08-05 15:00 | RAD ---
Right hand 2 views portable: Reason for examination: Painful swollen right wrist and forearm. The 2 views of the right hand show no evidence of an acute site of fracture or dislocation. The bone density is normal. No abnormal periosteal reaction is seen. Joint spaces are fairly well-maintained. IMPRESSION: No acute bony abnormality in the right hand. Right forearm 2 views portable: The radius and ulna appear to be intact. Bone density is normal. No abnormal periosteal reaction is seen. IMPRESSION: No acute bony abnormality at the radius or ulna. Electronically signed by: Mara Basilio MD (08/05/2020 2:57 PM) OSCAR
[2020-08-05 15:02] VITALS: BP 125/72
--- NOTE | 2020-08-05 17:24 | NUR ---
while feeding pt dinner, it was noted that patient appears to cough after bites of food and sips of honey thick liquid. pt does not appear to be completely swallowing. There is a wet gurgling noise noted and suction was started with minimal outcome. Pt placed on NPO precautions and will be notified of pt status.
[2020-08-05] MEDS ORDERED: VALPROATE SODIUM 500 MG/5 ML VIAL IV ONE (18:58)
[2020-08-05] MEDS ORDERED: IV NORMAL SALINE 50ML 50 ML ONE (18:58)
[2020-08-05] MEDS: VALPROATE SODIUM IV SCH (20:23)
[2020-08-05] MEDS: NORMAL SALINE IV SCH (20:23)
[2020-08-05 21:00] VITALS: BP 157/71
[2020-08-05] MEDS ORDERED: VALPROATE SODIUM 500 MG in IV NORMAL SALINE 50ML 50 ML IV SCH (21:00)
[2020-08-05] MEDS: AA 3%/ELECTROLYTE-TPN SOLN/GLY 1,000 ML IV SCH (21:48)
[2020-08-06 07:00] VITALS: BP 130/84
[2020-08-06] MEDS: NYSTATIN 100,000 UNIT/GM TOPICAL CREAM 15GM TUBE. TP SCH ×2 (09:25→21:32)
[2020-08-06] MEDS: NORMAL SALINE IV SCH ×2 (09:28→21:33)
[2020-08-06] MEDS: VALPROATE SODIUM IV SCH ×2 (09:28→21:33)
--- NOTE | 2020-08-06 10:59 | NUR ---
PT APPEARS TO BE MORE LETHARGIC TODAY. IT IS ALSO NOTED THAT PT WAS COUGHING AND HAD INCREASED SECRETIONS. PT'S SNORING AND SLEEPING AT THIS TIME. CALL WAS PLACED TO [facility] TO HAVE A NURSE COME AND ASSESS PT FOR POSSIBLE HOSPICE. WILL CTM AND FOLLOW UP AFTER ASSESSMENT.
[2020-08-06] MEDS: AA 3%/ELECTROLYTE-TPN SOLN/GLY 1,000 ML IV SCH (12:27)
[2020-08-06 13:00] VITALS: BP 142/79
--- NOTE | 2020-08-06 13:30 | NUR ---
THIS NURSE CALLED PT'S DPOA ABOUT HOSPICE. PT'S DPOA HAD QUESTIONS ABOUT PT STATUS. WILL CALL DPOA WHEN HE ARRIVES TO UNIT.
[2020-08-06] MEDS ORDERED: FLUMAZENIL 0.5 MG/5 ML VIAL. IV ONE (14:00)
--- NOTE | 2020-08-06 14:00 | NUR ---
SPOKE WITH ABOUT PT. IT WAS NOTED THAT ATIVAN MAY HAVE CONTRIBUTED TO PT BEING LETHARGIC AT THIS TIME. DR. FERRELL ORDERED 0.2 OF ROMAZICON TO BE GIVEN TO PT.
[2020-08-06 14:08] LABS: HEMATOCRIT 26.5 % (39.0-53.0); HEMOGLOBIN 8.9 g/dL (13.0-17.5); RED BLOOD COUNT 2.79 x10^6/uL (4.30-5.70); WHITE BLOOD COUNT 3.7 x10^3/uL (4.0-11.0)
--- NOTE | 2020-08-06 14:15 | NUR ---
AFTER ADMINISTRATION OF ROMAZICON, PT WAS SENT TO CT FOR A CT OF HIS HEAD, UPON ARRIVAL TO CT ROOM PT WAS MORE ALERT AND ABLE TO RESPOND TO NAME. PT'S EYES WERE OPEN AND PATIENT REMAINED AWAKE THROUGHOUT CT. PT WAS THEN TRANSFERRED BACK TO ROOM IN ICU AND WAS RESISTIVE TO CARES INCLUDING CHANGING AND REPOSITIONING. WILL CTM AT THIS TIME.
[2020-08-06 14:29] LABS: ALBUMIN 2.2 g/dL (3.4-5.0); ALBUMIN/GLOBULIN RATIO 0.6 (1.0-1.7); ALK PHOS 57 U/L (46-116); ALT (SGPT) 21 U/L (16-63); ANION GAP 9 (6-14); AST (SGOT) 53 U/L (15-37); BLOOD UREA NITROGEN 19 mg/dL (8-26); BUN/CREATININE RATIO 19 (6-20); CALCIUM 9.1 mg/dL (8.5-10.1); CARBON DIOXIDE 24 mmol/L (21-32); CHLORIDE 108 mmol/L (98-107); GFR 71.5; GLUCOSE 91 mg/dL (70-99); POTASSIUM 3.8 mmol/L (3.5-5.1); SODIUM 141 mmol/L (136-145); TOTAL BILIRUBIN 0.7 mg/dL (0.2-1.0); TOTAL PROTEIN 6.1 g/dL (6.4-8.2)
[2020-08-06 14:43] LABS: VAL ACID 21 mcg/mL (50-100)
--- NOTE | 2020-08-06 14:55 | RAD ---
Chest AP portable at 1357: Reason for examination: Altered mental status. Possible aspiration pneumonia. Pacemaker is present on the left. Heart and mediastinum are unremarkable. Lung banda continue to show some minimal basilar opacities, left greater than right and probable small left pleural effusion. No acute bony abnormalities are seen. IMPRESSION: Mild basilar opacities bilaterally, left greater than right and probable small left pleural effusion. CT head without contrast: Reason for examination: Altered mental status. Axial images were obtained through the brain. No contrast was administered. Exposure: One or more of the following individualized dose reduction techniques were utilized for this examination: 1. Automated exposure control 2. Adjustment of the mA and/or kV according to patient size 3. Use of iterative reconstruction technique. Ventricular systems are prominent but symmetric and consistent with the patient's advanced age and moderate generalized cerebral atrophy. No midline shift is seen. There is no evidence of intracranial hemorrhage, acute infarct, mass or edema. No abnormalities are seen at the orbits. The paranasal sinuses and mastoid air cells are clear. No acute abnormality seen in the skull. IMPRESSION: Moderate generalized cerebral atrophy. No acute intracranial abnormality evident. Electronically signed by: Mara Basilio MD (08/06/2020 2:52 PM) [id number]
--- NOTE | 2020-08-06 16:22 | NUR ---
PT HAS BEEN RESTING IN BED SINCE RETURNING FROM CT.
[2020-08-06 17:00] VITALS: BP 140/54
--- NOTE | 2020-08-06 18:50 | PN ---
DATE: 08/06/2020 SUBJECTIVE: The patient is extremely lethargic and unresponsive, he has excessive secretion and seemed to be choking on his own secretions and he was not able to eat or drink anything since yesterday evening and we kept him n.p.o., start him on procalamine. We switched his Depakote Sprinkle to be given IV, the buspirone does not available in an injectable form and apparently last Zyprexa was about 25 hours ago. His last Ativan was given about 9 hours ago. I did ask the pharmacist for the half-life and apparently the half-life of lorazepam is 12-14 hours and therefore we decided to wait for the effect of lorazepam to completely disappear from circulation. I also arranged for him to have a CT scan of the head, chest x-ray and repeat all his labs and decide on further management accordingly. PHYSICAL EXAMINATION: GENERAL: When I examined him this afternoon, he was pale, but cachectic, but no jaundice, cyanosis or thyromegaly. No jugular venous distention. No limb edema. VITAL SIGNS: His heart rate was 83, blood pressure was 130/64, temperature was 98.4, respiratory rate was 18 and oxygen saturation was 95%. HEENT: Showed normocephalic, atraumatic. NECK: Supple. HEART: Showed normal first and second heart sounds. No gallop, rub or murmur. CHEST: Shows central trachea, equal bilateral reduced expansion, reduced air entry, vesicular sounds. I could not really appreciate any crepitation or rhonchi. However, lot of gurgling sounds, especially in the upper airways. ABDOMEN: Distended, soft, nontender. NEUROLOGIC: He was very encephalopathic. His intake over the last 24 hours was 1615, no output was recorded. LABORATORY DATA: Today's labs are still pending at the time of this dictation. ASSESSMENT: Altered mental status, the cause of which is not clear. He has received Zyprexa more than 25 hours ago. He has received also the Ativan last night and Ativan about 9 hours ago. He definitely has no hypothermia. His temperature was 98.4 and has not really fallen down since he came here from [facility]. Other medical problems include hypertension, hyperlipidemia, paroxysmal atrial fibrillation, complete heart block, status post permanent pacemaker. He is known to have aortic stenosis and chronic diastolic congestive heart failure, gastroesophageal reflux disease, prostate cancer, chronic alcohol abuse. PLAN: To arrange for a CT scan of the head without contrast, chest x-ray. Repeat all his labs this afternoon and decide on further management accordingly. CHANTALE FERRELL MD DR: BHAVIN/teo JOB#: [id number] / [id number]
[2020-08-06 20:30] VITALS: BP 141/74
--- NOTE | 2020-08-06 21:30 | NUR ---
Patient's daughter called for follow up on test results. Informed daughter that head CT and chest X-ray were both unremarkable. Patient awake and restless in bed.
[2020-08-07] MEDS: AA 3%/ELECTROLYTE-TPN SOLN/GLY 1,000 ML IV SCH ×2 (02:33→07:15)
[2020-08-07 08:47] VITALS: BP 146/88
[2020-08-07] MEDS: VALPROATE SODIUM IV SCH (09:21)
[2020-08-07] MEDS: NYSTATIN 100,000 UNIT/GM TOPICAL CREAM 15GM TUBE. TP SCH (09:21)
[2020-08-07] MEDS: NORMAL SALINE IV SCH (09:21)
[2020-08-07 13:00] VITALS: BP 132/77
[2020-08-07 16:29] VITALS: BP 123/87
[2020-08-07] MEDS: DIVALPROEX 125 MG CAP.SPRINK PO SCH (17:18)
--- NOTE | 2020-08-07 17:51 | NUR ---
pt has been impulsive and fidgety all try trying to attempt to get out of bed. Legs over rail most of day. Pt repositioned and reoriented many times throughout the day. PT does hit at times. Pt confused and does not know what he is here. Kept talking about missing his plane and needing to go to the airport. PT is unable to verbalize understanding of poc at this time and was covid swabbed today pending admission to [facility]. PT did well on RN bedside swallow today and was able to eat a hamburger on his own with no coughing or pocketing of food noted. PT did fine with thin liquids as well. Will continue to monitor. Daughter Sara was updated on condition today. Katya JAIMES
[2020-08-07 19:24] VITALS: BP 140/75
--- NOTE | 2020-08-07 19:39 | NUR ---
Pt yelling out, called Dr. Hauser for medication orders, per Dr. Hauser give Zyprexa 2.5mg q2hrs prn (max dose of 10mg) for psychosis if OK with Dr. Vega. Called Dr. Vega for approval. Per Dr. Vega Zyprexa is OK with him.
[2020-08-07] MEDS: NYSTATIN TOPICAL POWDER 15GM BOTTLE. TP SCH (20:27)
[2020-08-07] MEDS: OLANZapine 2.5 MG TABLET PO PRN ×2 (20:40→22:55)
--- NOTE | 2020-08-07 21:23 | PN ---
DATE: 08/07/2020 SUBJECTIVE: The patient is definitely more awake, alert, continued to be confused, hallucinating; however, he was able to eat on his own and according to nursing staff, he drank water without any difficulty. His temperature, he continued to be normothermic and we have discontinued all his psychotropic medications that can cause hypothermia. PHYSICAL EXAMINATION: GENERAL: When I examined him this afternoon, he was pale, but no jaundice or cyanosis. No lymphadenopathy, no thyromegaly. No jugular venous distention. No limb edema. VITAL SIGNS: His heart rate was 110, blood pressure was 146/88, temperature 97.9, respiratory rate 20, and oxygen saturation was 99%. HEAD, EYES, EARS, NOSE AND THROAT: Showed normocephalic, atraumatic. NECK: Supple. CARDIAC: Normal first and second heart sounds. No gallop or murmur. CHEST: Clear to auscultation. No crepitation or rhonchi. ABDOMEN: Distended, soft, nontender. No guarding or rigidity. No organomegaly. All hernial orifices intact. Bowel sounds normal. NEUROLOGIC: He is very confused, agitated, combative at times, but all his cranial nerves are intact. He moves extremities without difficulty, although he is very unsteady on his feet and very high fall risk. His intake and output were incompletely recorded. LABORATORY DATA: As of this morning, his most recent lab work showed a serum sodium 141, potassium 3.8, chloride 108, bicarbonate 24, anion gap of 9, BUN 19, creatinine 1, estimated GFR was 71 mL per minute. His glucose was 91, calcium was 9.1. Total bilirubin, AST, ALT, alkaline phosphatase were normal. His ammonia was 11, white cell count was 3700, hemoglobin 9, hematocrit 27, MCV 95, and platelet count of 104,000. We did actually a CT scan of the head yesterday, which showed the patient has moderate generalized cerebral atrophy, no acute intracranial abnormality evident and there is a chest x-ray also was unremarkable except for mild basilar opacities bilaterally, left greater than the right and possible small left-sided pleural effusion. ASSESSMENT: Drug-induced hypothermia, resolved. He is now off of all psychotropics including Zyprexa and as their discussion with Dr. Hauser, we switched him to buspirone and Depakote Sprinkle. Other medical problems include hypertension, hyperlipidemia, paroxysmal atrial fibrillation, complete heart block, status post permanent pacemaker. He has also aortic stenosis and chronic diastolic congestive heart failure, gastroesophageal reflux disease, prostate cancer, chronic alcohol abuse. PLAN: To continue with Depakote and BuSpar, we will discontinue any benzodiazepine and any psychotropics that could cause hypothermia. He is now on a regular diet with thin liquids and the plan is for [facility] to [facility] once his COVID test becomes available. CHANTALE FERRELL MD DR: BHAVIN/teo JOB#: [id number] / [id number]
--- NOTE | 2020-08-07 22:03 | PDOC ---
Exam Note: Taurus Note: Please also refer to the separate dictated note~for this date of service dictated separately.~Patient seen individually. Discussed the patient with Nursing staff reviewed the chart.~Reviewed interim history and current functioning. Reviewed vital signs,~Labs/ Radiology~and current medications noted below. Continue current treatment with the changes noted in the dictated addendum note Assessment: Vital Signs/I&O: Vital Signs Date Time Temp Pulse Resp B/P (MAP) Pulse Ox O2 Delivery O2 Flow Rate FiO2 08/07/20 20:00 Room Air 08/07/20 19:24 97.4 114 14 140/75 (96) 99 I & O 08/06/20 08/06/20 08/07/20 14:59 22:59 06:59 Intake Total 1052.5 ml 52.5 ml 1000 ml Balance 1052.5 ml 52.5 ml 1000 ml Current Medications: Meds: Current Medications Medications (Trade) Dose Ordered Sig/Lit Route PRN Reason Start Time Stop Time Status Last Admin Dose Admin Divalproex Sodium (Depakote Sprinkles) 250 mg 0900,1700 PO 08/07/20 17:00 08/07/20 17:18 Nystatin (Nystop) 1 nahun BID TP 08/07/20 21:00 08/07/20 20:27 Olanzapine (ZyPREXA) 2.5 mg PRN Q2HR PRN PO PSYCHOSIS 08/07/20 19:45 08/07/20 20:40 I have reviewed the current psychotropics carefully including drug interactions. Risk benefit ratio favors no change other than as noted in my dictated progress note. Diagnosis: Problems: (1) Impulse control disorder, unspecified (2) Anxiety disorder, unspecified (3) Dementia, vascular, with depression (4) Dementia, vascular, with delusions (5) Major neurocognitive disorder (6) Major neurocognitive disorder, due to vascular disease, with behavioral disturbance, mild (7) History of alcohol dependence TL SAMUEL MD Aug 07, 2020 22:03
[2020-08-07 23:00] VITALS: BP 154/93
--- NOTE | 2020-08-08 05:49 | NUR ---
Shift Note: Pt a/o to self (pt does yell out intermittently), VSS, no c/o pain or n/v at this time, pt incontinent of urine (pt changed several times throughout the night), pt given zyprexa x2 w/minimal effect, pt did not fall asleep until 0400 this am (pt talking, yelling, and attempting to get out of bed throughout the shift), pt was swabbed for Covid 19 08/07/20 (no symptoms noted, required for pt to transfer back to [facility], waiting for results).
--- NOTE | 2020-08-08 07:21 | PDOC ---
Exam Note: Taurus Note: This note is a late entry for 08/07/2020 covers elements not covered in my initial note. Subjective: The patient was seen face to face in the evening of 08/07/2020 with nursing staff. Discussed with nursing staff, reviewed the chart. Per nursing report, the patient has been quite restless, agitated, yelling out at times. Medically he seems to be stabilized and the question is whether he should transition back to the [facility]. Review of Systems: Ambulation impaired. No CV, , pulmonary, eye system symptoms on review. Mental Status Exam: Oriented to himself. Insight and judgment, recent and remote memory, attention and concentration, fund of knowledge is poor consistent with his diagnoses. Laboratory Data: Reviewed. 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 Anxiety disorder unspecified. Impulse control disorder unspecified. Plan: Start Zyprexa 2.5 mg q.2h. p.r.n. psychosis and agitation, if okay with Dr. Vega. However, given his hypothermia partially attributed to atypical antipsychotics if Dr. Vega prefers not to use Zyprexa, we will use trazodone 50 mg h.s., may repeat x1 for insomnia, anxiety, agitation. Continue rest unchanged. Assessment: Vital Signs/I&O: Vital Signs Date Time Temp Pulse Resp B/P (MAP) Pulse Ox O2 Delivery O2 Flow Rate FiO2 08/07/20 23:00 97.2 103 18 154/93 (113) 99 Room Air I & O 08/07/20 08/07/20 08/08/20 15:00 23:00 07:00 Intake Total 1052.5 ml 250 ml Balance 1052.5 ml 250 ml Current Medications: Meds: Current Medications Medications (Trade) Dose Ordered Sig/Lit Route PRN Reason Start Time Stop Time Status Last Admin Dose Admin Divalproex Sodium (Depakote Sprinkles) 250 mg 0900,1700 PO 08/07/20 17:00 08/07/20 17:18 Nystatin (Nystop) 1 nahun BID TP 08/07/20 21:00 08/07/20 20:27 Olanzapine (ZyPREXA) 2.5 mg PRN Q2HR PRN PO PSYCHOSIS 08/07/20 19:45 08/07/20 22:55 I have reviewed the current psychotropics carefully including drug interactions. Risk benefit ratio favors no change other than as noted in my dictated progress note. Diagnosis: Problems: (1) Hypothermia (2) Anxiety disorder, unspecified (3) Dementia, vascular, with depression (4) History of alcohol dependence (5) Major neurocognitive disorder (6) Major neurocognitive disorder, due to vascular disease, with behavioral disturbance, mild (7) Dementia, vascular, with delusions (8) Impulse control disorder, unspecified TL SAMUEL MD Aug 08, 2020 07:21
[2020-08-08 08:18] VITALS: BP 143/76
[2020-08-08] MEDS: NYSTATIN TOPICAL POWDER 15GM BOTTLE. TP SCH ×2 (08:24→20:21)
[2020-08-08] MEDS: DIVALPROEX 125 MG CAP.SPRINK PO SCH ×2 (08:24→17:05)
[2020-08-08 11:00] VITALS: BP 91/50
[2020-08-08 11:50] VITALS: BP 88/54
--- NOTE | 2020-08-08 12:05 | NUR ---
SIMONE spoke with pt dtr to inform her that pt is having behaviors downstairs. Pt has been deemed as medically stable. Pt dtr questioned next steps; SW explained that pt would be able to come back onto [facility] and the psychiatrist will have to see if any medications can aid in pt behaviors by working with the pharmacy for options. SW will then also be able to mass fax facilities to see if placement can be found. Pt does not have Medicaid and pt dtr reports understanding the spend down needed to maintain pt insurance coverage. SIMONE asked if pt dtr had time to complete consents, and she requested to have consents completed after she gets off work at 1600.
[2020-08-08 15:19] VITALS: BP 92/54
--- NOTE | 2020-08-08 16:27 | NUR ---
Pt was combative with care at time today, then pleasant at times. Pt is confused and unable to verbalize understanding of poc. PT is ok to go back to [facility] when covid swab comes back, please coordinate with nursing staff per [facility]. PT DOES NOT WANT HIS FLU SHOT PER DAUGHTER. HE HAS NEVER GOTTEN IT. Sherri Montaño APRN
--- NOTE | 2020-08-08 19:00 | PN ---
DATE: 08/08/2020 SUBJECTIVE: The patient is resting, slightly propped up in bed, no apparent distress. He is awake, alert, less agitated or combative compared to yesterday. He apparently has eaten his breakfast and lunch. We are waiting for his coronavirus by PCR before transferring him up to [facility], did require 2 injections of Zyprexa overnight because he was very combative and agitated. PHYSICAL EXAMINATION: GENERAL: When I saw him this morning, he looked pale, no jaundice, cyanosis or thyromegaly. No jugular venous distention or limb edema. VITAL SIGNS: His heart rate was 81, blood pressure was 88/54, temperature was 96.3, respiratory rate was 14 and oxygen saturation was 92% on room air. HEENT: Showed normocephalic, atraumatic. NECK: Supple. HEART: Normal first and second heart sounds. No gallop, rub or murmur. CHEST: Clear to auscultation. No crepitation or rhonchi. ABDOMEN: Distended, soft, nontender. NEUROLOGIC: He is awake, alert, obviously continued to be confused and agitated at times. All his cranial nerves are intact. He moves extremities without difficulty, although he is mostly bedbound. His intake was 2100, no output was recorded. LABORATORY DATA: His most recent white cell count was 3700, hemoglobin 9, hematocrit 27, MCV 95, and platelet count of 104,000. Serum sodium was 141, potassium 3.8, chloride 108, bicarbonate 24, anion gap of 9, BUN 19, creatinine 1, estimated GFR was 71 mL per minute. His glucose was 91, calcium was 9.1. Total bilirubin, AST, ALT, alkaline phosphatase were normal. Total protein was 6.1, albumin 2.2. ASSESSMENT: 1. Drug-induced hypothermia, resolved. He is now off of all psychotropic medication that induced hypothermia including Zyprexa. He is currently on buspirone and Depakote. 2. Other medical problems include: A. Hypertension. B. Hyperlipidemia. C. Paroxysmal atrial fibrillation. D. Complete heart block, status post permanent pacemaker. E. Aortic stenosis. F. Chronic diastolic congestive heart failure. G. Gastroesophageal reflux disease. H. Prostate cancer. I. Chronic alcohol abuse. PLAN: Obviously transfer the patient to [facility] once his COVID test comes negative. CHANTALE FERRELL MD DR: Naomi JOB#: [id number] / [id number]
[2020-08-08 19:15] VITALS: BP 126/72
[2020-08-08] MEDS: OLANZapine 2.5 MG TABLET PO PRN (20:21)
--- NOTE | 2020-08-08 22:04 | PDOC ---
Exam Note: Taurus Note: Please also refer to the separate dictated note~for this date of service dictated separately.~Patient seen individually. Discussed the patient with Nursing staff reviewed the chart.~Reviewed interim history and current functioning. Reviewed vital signs,~Labs/ Radiology~and current medications noted below. Continue current treatment with the changes noted in the dictated addendum note Assessment: Vital Signs/I&O: Vital Signs Date Time Temp Pulse Resp B/P (MAP) Pulse Ox O2 Delivery O2 Flow Rate FiO2 08/08/20 19:15 Room Air 08/08/20 19:15 97.6 85 18 126/72 (90) 96 I & O 08/07/20 08/07/20 08/08/20 15:00 23:00 07:00 Intake Total 1052.5 ml 250 ml Balance 1052.5 ml 250 ml Current Medications: I have reviewed the current psychotropics carefully including drug interactions. Risk benefit ratio favors no change other than as noted in my dictated progress note. Diagnosis: Problems: (1) Impulse control disorder, unspecified (2) Anxiety disorder, unspecified (3) Dementia, vascular, with depression (4) Dementia, vascular, with delusions (5) History of alcohol dependence (6) Major neurocognitive disorder (7) Major neurocognitive disorder, due to vascular disease, with behavioral disturbance, mild (8) Hypothermia TL SAMUEL MD Aug 08, 2020 22:04
[2020-08-08] MEDS: busPIRone 5 MG TABLET. PO SCH (22:27)
[2020-08-09 01:05] VITALS: BP 122/84
[2020-08-09 05:05] VITALS: BP 137/72
--- NOTE | 2020-08-09 05:50 | NUR ---
Pt awake watching TV in bed at change of shift. Pt is pleasantly confused and forgetful most of the time but occasionally raises his voice, yelling out at staff when his "point is not understood". Pt requested that I bring him a Kahlili when asked about HS snack. Pt often throwing legs over side rails, attempting to get out of bed, stating "I need to catch my plane!" or "I need to help the baby because you wont!". Pt often able to redirect. Pt requested to get up to toilet to have a BM, assisted up x2. Pt did become agitated and swatted at staff when getting up off on toilet, PRN Zyprexa given. Pt slept for about 2-3 hours all night, awake from midnight on.
[2020-08-09 06:27] LABS: HEMATOCRIT 26.4 % (39.0-53.0); HEMOGLOBIN 8.8 g/dL (13.0-17.5); RED BLOOD COUNT 2.82 x10^6/uL (4.30-5.70); RED CELL DISTRIBUTION WIDTH 14.7 % (11.5-14.5); WHITE BLOOD COUNT 3.6 x10^3/uL (4.0-11.0)
[2020-08-09 06:55] LABS: ALBUMIN 2.3 g/dL (3.4-5.0); ALBUMIN/GLOBULIN RATIO 0.5 (1.0-1.7); CALCIUM 9.1 mg/dL (8.5-10.1); CREATININE 1.1 mg/dL (0.7-1.3); GFR 64.1; POTASSIUM 3.4 mmol/L (3.5-5.1); TOTAL BILIRUBIN 0.5 mg/dL (0.2-1.0); TOTAL PROTEIN 6.5 g/dL (6.4-8.2)
[2020-08-09] MEDS: OLANZapine 2.5 MG TABLET PO PRN (07:40)
[2020-08-09] MEDS: DIVALPROEX 125 MG CAP.SPRINK PO SCH (07:40)
[2020-08-09] MEDS: busPIRone 5 MG TABLET. PO SCH (07:40)
--- NOTE | 2020-08-09 09:18 | DS ---
DATE OF DISCHARGE: 08/09/2020 ATTENDING PHYSICIAN: Dr. Vega and Dr. Mccarty. FINAL DISCHARGE DIAGNOSES: 1. Hypothermia, resolved. 2. Profound dementia with agitation. 3. Chronic alcoholism. 4. Wernicke-Korsakoff syndrome. 5. Chronic obstructive pulmonary disease. 6. Dementia. 7. Generalized debilitation. HISTORY AND PHYSICAL: This is a gentleman well known to us, came down from the [facility] with hypothermia. Supposedly, a rectal temperature was recorded at 90.1 degrees Fahrenheit, how accurate this is remains to be ____. He has had a previous admission with similar results. PHYSICAL EXAMINATION: Please see the dictated note. PERTINENT LABORATORY AND X-RAY STUDIES: His admission hemoglobin was 8.1 g/dL, repeated was up to 8.9 g/dL; white count 3600. Chemistry panel unremarkable. Creatinine is 1.1 mg/dL, nonfasting blood sugar 108. Depakote level was 21. Serology, a repeat coronavirus PCR was reported negative. COURSE IN THE HOSPITAL: The patient was admitted. Diet advanced. Home meds continued. He did fairly well. On the sixth hospital day, his repeat coronavirus swab was negative. He was ready to go back to the [facility]. Eventual placement is still pending at this time. On the day of discharge, his blood pressure ____, pulse was regular, temperature 97.5 degrees Fahrenheit, oxygen saturation 95% on room air. He is discharged, then to return to the [facility]. Discharge meds will include the following: He will continue his Tylenol, folic acid, magnesium hydroxide, BenGay, nystatin and thiamine dose is unchanged. The patient was then discharged from our hospital in stable condition with explicit instructions and followup care. CAROLINE MCCARTY MD DR: ESTEBAN/teo JOB#: [id number] / [id number] [facility]
[2020-08-09] MEDS ORDERED: POTA20TA4 PO ×2 (10:38→10:40)
--- NOTE | 2020-08-09 10:50 | NUR ---
NURSING NOTE: DISCHARGE PT DISCHARGED TO [facility]. REPORT CALLED TO DONA. PACKET SENT WITH PT. NO COMPLICATIONS, NO QUESTIONS. PT TAKEN VIA WC. NO RX GIVEN. ADRIEL JARQUIN
--- NOTE | 2020-08-10 06:30 | PDOC ---
Exam Note: Taurus Note: This note is a late entry for 08/08/2020 covers elements not covered in my initial note. Subjective: The patient was seen face to face in the evening of 08/08/2020 with nursing staff. Discussed with nursing staff, reviewed the chart. Per nursing report, the patient remains restless, anxious, agitated, yelling at times. Discussed separately on a couple of occasions with Virgen Cardoso, [employer] Supervisor and reviewed at some length whether the patient met criteria for coming back on the [facility]. He has been medically stabilized in the ICU but continues to be agitated, yelling out at times, disruptive with marked mood lability, unable to be transitioned to a [facility]. Review of Systems: Ambulation impaired. No CV, , pulmonary, eye system symptoms on review. Mental Status Exam: Oriented to himself. Insight and judgment, recent and remote memory, attention and concentration, fund of knowledge is poor consistent with his diagnoses. Laboratory Data: Reviewed. 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 Anxiety disorder unspecified. Impulse control disorder unspecified. Plan: Use Zyprexa Zydia p.r.n. Consider Neurontin as a mood stabilizer since he has not done well on Depakote and get somewhat over-sedated and we are unable to use atypical antipsychotics due to his hypothermia which was else from this. If we end up transitioning him back to the [facility], we may consider changing Depakote to Neurontin. Continue BuSpar for now. Assessment: Vital Signs/I&O: Vital Signs Date Time Temp Pulse Resp B/P (MAP) Pulse Ox O2 Delivery O2 Flow Rate FiO2 08/09/20 08:00 Room Air 08/09/20 05:05 97.5 101 14 137/72 (93) 95 Current Medications: I have reviewed the current psychotropics carefully including drug interactions. Risk benefit ratio favors no change other than as noted in my dictated progress note. Diagnosis: Problems: (1) Impulse control disorder, unspecified (2) Hypothermia (3) Anxiety disorder, unspecified (4) Dementia, vascular, with depression (5) Dementia, vascular, with delusions (6) History of alcohol dependence (7) Major neurocognitive disorder (8) Major neurocognitive disorder, due to vascular disease, with behavioral disturbance, mild TL SAMUEL MD Aug 10, 2020 06:30
== END 2020-08-09 10:51 | DRG 947 ==
LOC: ICU 06:27
PROVIDERS: ADMIT Internal Medicine; ATTEND Internal Medicine
DX: R68.0 Hypothermia, not associated with low environmental temperature (principal); E43 Unspecified severe protein-calorie malnutrition; F01.51 Vascular dementia, unspecified severity, with behavioral disturbance; I44.2 Atrioventricular block, complete; I50.32 Chronic diastolic (congestive) heart failure; C61 Malignant neoplasm of prostate; E78.5 Hyperlipidemia, unspecified; F32.9 Major depressive disorder, single episode, unspecified; F41.9 Anxiety disorder, unspecified; F63.9 Impulse disorder, unspecified; I11.0 Hypertensive heart disease with heart failure; I35.0 Nonrheumatic aortic (valve) stenosis; I48.0 Paroxysmal atrial fibrillation; J44.9 Chronic obstructive pulmonary disease, unspecified; K21.9 Gastro-esophageal reflux disease without esophagitis; Z20.828 Contact with and (suspected) exposure to other viral communicable diseases; F10.10 Alcohol abuse, uncomplicated; Y90.9 Presence of alcohol in blood, level not specified; T43.595A Adverse effect of other antipsychotics and neuroleptics, initial encounter; Z80.9 Family history of malignant neoplasm, unspecified; Z95.810 Presence of automatic (implantable) cardiac defibrillator; Y92.89 Other specified places as the place of occurrence of the external cause; Z68.23 Body mass index [BMI] 23.0-23.9, adult
CPT/HCPCS: 36415; 70450; 71045; 73090; 73120; 80053; 80164; 82140; 82533; 82550; 84439; 84443; 84480; 84481; 85025; 85027; 93971; J2060; J3490; U0003; J7030

== ENCOUNTER 2020-08-09 10:55 | Inpatient (IN) | payer MEDICARE, MEDICAID ==
[~2020-08-09] VITALS: Ht 188 cm; Wt 88.2 kg
[2020-08-09 11:38] VITALS: BP 142/80
[2020-08-09] MEDS ORDERED: METHYL SALICYLATE/MENTHOL TOPICAL OINTMENT 57GM TUBE. TP PRN (12:00)
[2020-08-09] MEDS ORDERED: ACETAMINOPHEN 325 MG TABLET PO PRN ×2 (12:00→12:30)
[2020-08-09] MEDS ORDERED: MAGNESIUM HYDROXIDE 2,400 MG/30 ML ORAL.SUSP. PO PRN (12:00)
[2020-08-09] MEDS ORDERED: MAG HYDROX/AL HYDROX/SIMETH 30 ML ORAL.SUSP PO PRN ×2 (12:00→12:30)
[2020-08-09 12:08] LABS: BILIRUBIN,URINE NEG (NEG); CLARITY,URINE HAZY; COLOR,URINE YELLOW; GLUCOSE,URINE NEG (NEG); NITRITE,URINE NEG (NEG); UROBILINOGEN,URINE 0.2 mg/dL (0.2 mg/dL)
[2020-08-09 12:09] LABS: BACTERIA,URINE FEW /HPF (0-FEW); SQUAMOUS EPITHELIAL CELL,UR FEW /LPF; WBC,URINE 20-40 /HPF (0-4); YEAST,URINE PRESENT /HPF
[2020-08-09] MEDS ORDERED: NYSTATIN TOPICAL POWDER 15GM BOTTLE. TP PRN (12:30)
[2020-08-09] MEDS ORDERED: NON FORMULARY ITEM (Magnesium Hydroxide (Milk Of Magnesia) 2,400 MG) PO PRN (12:30)
[2020-08-09] MEDS ORDERED: METHYL SALICYLATE/MENTHOL TOPICAL OINTMENT 57GM TUBE. TP SCH (13:00)
[2020-08-09] MEDS: GABAPENTIN 100 MG CAPSULE. PO SCH ×2 (13:42→17:17)
[2020-08-09] MEDS: MAGNESIUM OXIDE 400 MG TABLET PO SCH ×2 (13:50→20:32)
[2020-08-09 16:18] VITALS: BP 113/46
[2020-08-09] MEDS: busPIRone 5 MG TABLET. PO SCH (20:32)
--- NOTE | 2020-08-09 22:09 | PDOC ---
Exam Note: Taurus Note: Please also refer to the separate dictated note~for this date of service dictated separately.~Patient seen individually. Discussed the patient with Nursing staff reviewed the chart.~Reviewed interim history and current functioning. Reviewed vital signs,~Labs/ Radiology~and current medications noted below. Continue current treatment with the changes noted in the dictated addendum note Assessment: Vital Signs/I&O: Vital Signs Date Time Temp Pulse Resp B/P (MAP) Pulse Ox O2 Delivery O2 Flow Rate FiO2 08/09/20 16:18 97.9 77 18 113/46 (68) 99 Labs: Laboratory Tests Test 08/09/20 11:34 Urine Collection Type U cath Urine Color Yellow Urine Clarity Hazy Urine pH 7.0 Urine Specific [place] 1.015 Urine Protein Neg (NEG-TRACE) Urine Glucose (UA) Neg mg/dL (NEG) Urine Ketones (Stick) Neg mg/dL (NEG) Urine Blood Trace (NEG) Urine Nitrite Neg (NEG) Urine Bilirubin Neg (NEG) Urine Urobilinogen Dipstick 0.2 mg/dL (0.2 mg/dL) Urine Leukocyte Esterase Mod (NEG) Urine RBC 3-5 /HPF (0-2) Urine WBC 20-40 /HPF (0-4) Urine Squamous Epithelial Cells Few /LPF Urine Bacteria Few /HPF (0-FEW) Urine Yeast Present /HPF Current Medications: Meds: Current Medications Medications (Trade) Dose Ordered Sig/Lit Route PRN Reason Start Time Stop Time Status Last Admin Dose Admin Gabapentin (Neurontin) 100 mg TID@0900,1300,1700 PO 08/09/20 13:00 08/09/20 17:17 Magnesium Hydroxide (Milk Of Magnesia) 2,400 mg PRN QHS PRN PO CONSTIPATION 08/09/20 12:00 08/09/20 13:42 Magnesium Oxide (Magnesium Oxide) 400 mg TID PO 08/09/20 14:00 08/09/20 20:32 Buspirone HCl (Buspar) 5 mg BID PO 08/09/20 21:00 08/09/20 20:32 I have reviewed the current psychotropics carefully including drug interactions. Risk benefit ratio favors no change other than as noted in my dictated progress note. Diagnosis: Problems: (1) Impulse control disorder, unspecified (2) Anxiety disorder, unspecified (3) Dementia, vascular, with depression (4) Dementia, vascular, with delusions (5) History of alcohol dependence (6) Major neurocognitive disorder (7) Major neurocognitive disorder, due to vascular disease, with behavioral disturbance, mild TL SAMUEL MD Aug 09, 2020 22:09
--- NOTE | 2020-08-09 22:24 | HP ---
ADMIT DATE: 08/09/2020 PSYCHIATRIC ADMISSION HISTORY AND EVALUATION This note covers elements not covered in my initial note, 08/09/2020. IDENTIFYING DATA: The patient is an 79-year-old male who returns back to us from ICU after he was medically stabilized for hypothermia, which is attributed partly to his atypical antipsychotics. These were discontinued and he was initiated on BuSpar for anxiety, maintained on Depakote and Risperdal was stopped. He remained extremely disruptive, loud, yelling, unmanageable and could not be accepted at the nursing facility because of his psychiatric symptoms and his transition back to [facility] for further psychiatric stabilization. CHIEF COMPLAINT: "I don't know. I don't do those things." The patient responded as I questioned him on what prompted him to come back. HISTORY OF PRESENT ILLNESS: The patient has a long history of alcohol abuse and major neurocognitive disorder, multifactorial, alcohol, Alzheimer vascular with delusion, depression, behavioral disturbance. 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 Couple of times he has had to go to the medical/surgical floor for medical stabilization before being back with us in similar situation has happened this time. He has had sleep and appetite changes. No active suicidal or homicidal ideation. PAST PSYCHIATRIC HISTORY: As noted above. MEDICAL HISTORY: Positive for hypothermia due to atypical antipsychotics since resolved; history of tachycardia, aortic stenosis, hypertension, paroxysmal atrial contraction, GERD, diverticulosis, complete heart block, history of CA prostate, atrial fibrillation, alcohol abuse, hard of hearing. ACCU-CHEKS: None. ALLERGIES: Negative. DIET: Cardiac. Takes medications crushed in ice cream, ambulates up with walker, unsteady at times. CURRENT PSYCHOTROPICS: MRAD was reviewed. Risperdal has been stopped. He is on Depakote and BuSpar along with trazodone at night. FAMILY HISTORY: Noncontributory. 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 MENTAL STATUS EXAMINATION: The patient was seen individually evening of 08/09/2020. He is oriented to himself. Insight, judgment, recent and remote memory, attention, concentration, fund of knowledge poor, consistent with his diagnosis. DIAGNOSES: Major neurocognitive disorder, multifactorial secondary to alcohol, Alzheimer vascular with delusion, depression, behavioral disturbance; anxiety disorder, unspecified; impulse control disorder, unspecified. Rest unchanged as above. PLAN: Admit to Gerops[facility]iatry Unit at [facility]. I will see the patient daily individually from a psychiatric standpoint. Medical followup with Dr. Sutton and Dr. Vega. We will go ahead and change the Depakote to Neurontin 100 mg 3 times a day. Continue BuSpar or make further adjustments as clinically indicated. Estimated length of stay 7-9 days. Transition back to [facility] when stable. MAN Nancy SAMUEL MD DR: MARLEEN/teo JOB#: [id number] / [id number]
[2020-08-10 06:27] LABS: BASO % 1 % (0-3); EOS # 0.1 x10^3/uL (0.0-0.7); EOS % 3 % (0-3); HEMATOCRIT 29.2 % (39.0-53.0); HEMOGLOBIN 9.7 g/dL (13.0-17.5); LYMPH # 0.6 x10^3/uL (1.0-4.8); LYMPH % 17 % (24-48); MEAN CORPUSCULAR HEMOGLOBIN 31 pg (25-35); MEAN CORPUSCULAR HGB CONC 33 g/dL (31-37); MEAN CORPUSCULAR VOLUME 94 fL (79-100); MONO # 0.4 x10^3/uL (0.0-1.1); MONO % 11 % (0-9); NEUT # 2.4 x10^3uL (1.8-7.7); NEUT % 68 % (31-73); PLATELET COUNT 183 x10^3/uL (140-400); RED CELL DISTRIBUTION WIDTH 14.6 % (11.5-14.5); WHITE BLOOD COUNT 3.6 x10^3/uL (4.0-11.0)
[2020-08-10 06:50] LABS: ALBUMIN 2.7 g/dL (3.4-5.0); ALBUMIN/GLOBULIN RATIO 0.6 (1.0-1.7); CALCIUM 9.5 mg/dL (8.5-10.1); GFR 71.5; POTASSIUM 3.7 mmol/L (3.5-5.1); TOTAL BILIRUBIN 0.6 mg/dL (0.2-1.0); TOTAL PROTEIN 7.2 g/dL (6.4-8.2)
[2020-08-10] MEDS: THIAMINE 100 MG TABLET. PO SCH (08:31)
[2020-08-10] MEDS: GABAPENTIN 100 MG CAPSULE. PO SCH ×3 (08:31→17:20)
[2020-08-10] MEDS: MULTIVITAMIN with MINERAL TABLET. PO SCH (08:31)
[2020-08-10] MEDS: FOLIC ACID 1 MG TABLET PO SCH (08:31)
[2020-08-10] MEDS: MAGNESIUM OXIDE 400 MG TABLET PO SCH ×3 (08:31→19:56)
[2020-08-10] MEDS: busPIRone 5 MG TABLET. PO SCH ×2 (08:31→19:56)
[2020-08-10 09:00] VITALS: BP 134/68
[2020-08-10] MEDS ORDERED: POTASSIUM CHLORIDE 20 MEQ TABLET.ER. PO SCH (09:00)
--- NOTE | 2020-08-10 10:40 | TX PLAN ---
Interdisciplinary Tx Plan Admission Information Aug 09, 2020 at 10:55 Legal Status (on Admission): Voluntary DPOA/Guardian Name: Sara Arnold Contact Other Contact Name: [facility] Verified Code Status: DNR Allergies: Coded Allergies: No Known Drug Allergies (Unverified , 05/27/20) Diagnoses Primary Diagnosis: Major Neurocognitive D/O , vascular Alzheimers with delusions, depression, B/D Reasons for Admission: Agitated Problem in Patient's Words: N/A Additional Admission Comments: According to the intake, pt was on ICU hitting staff, restless, agitated, and yelling out; pt is delusional-thinks tht he needs to get in an airplane and is worried he will miss his flight. Problems Active Problems: delusional restless Inactive Problems: Medication compliant crushed Pt Strengths/Limitations Ability for Shannon: Poor Cognitive Functioning/Ability: Poor Communication Skills/Ability: Fair Financial Resources: Fair Insight/Judgement: Poor Intellectual Ability: Poor Physical Health: Poor Social Skills: Fair Stability in Family: Good Stability in School/Work: Poor Verbal Skills: Fair Discharge Criteria Discharge Criteria: No need for close observ., Adequate arrangements @DC, Improved behavior, Improved mood/thought Preliminary Discharge Plan Preliminary DC Plan: Placement Needed Special Precautions Fall Risk: Moderate Initial D/C Plan Pt will need placement in LTC Identified Discharge Needs: Referrals to higher level of care Currently Utilized Resources Currently Utilized Resources/P: Primary Care Physician Referrals Community Resources: Placement to LTC Identified Problems/Hx/Goals Objectives/Short-Term Goals Short Term Goals: Dec. Aggression, Dec. Outbursts, Monitor Med Effects, Promote Coping Skill Short Term Goals in Patient's: NA Interventions/Frequency Staff Interventions/Frequency&: Psychiatrist to assess pt at least 3x per week for medication mgmt. Social Work to assess pt at least 2x per week for dishcarge planning and barrier potentials. Nursing to assess medications, manage behaviors and complete 15 minute checks daily. 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 Pt is delusional as of this morning reporting that he is at a school district and getting ready to make a movie. Pt reports that he is 45 years old. Pt is weak and is an assist of 1 for transfers. Pt did have an eval with PT and OT this morning in which they walked pt around the hallways; SW will plan to get an update and can inform pt of the game plan. Pt at this time is not able to receive any antipsychotic as they are causing hypothermia for pt. Pt is on Gabapentin and Buspar as those medications are approved and will need to be adjusted. Pt will need placement for discharge and has been recently approved for [place] Medicaid. SIMONE will work with the family in finding an appropriate Medicaid approved placement. TAMMIE DEY Aug 10, 2020 10:40
[2020-08-10 15:54] VITALS: BP 133/86
--- NOTE | 2020-08-10 21:54 | PDOC ---
Exam Note: Taurus Note: Please also refer to the separate dictated note~for this date of service dictated separately.~Patient seen individually. Discussed the patient with Nursing staff reviewed the chart.~Reviewed interim history and current functioning. Reviewed vital signs,~Labs/ Radiology~and current medications noted below. Continue current treatment with the changes noted in the dictated addendum note Assessment: Vital Signs/I&O: Vital Signs Date Time Temp Pulse Resp B/P (MAP) Pulse Ox O2 Delivery O2 Flow Rate FiO2 08/10/20 15:54 97.4 82 16 133/86 (102) 100 Room Air I & O 08/09/20 08/09/20 08/10/20 14:59 22:59 06:59 Intake Total 240 ml 200 ml Balance 240 ml 200 ml Labs: Laboratory Tests Test 08/10/20 06:15 White Blood Count 3.6 x10^3/uL (4.0-11.0) L Red Blood Count 3.10 x10^6/uL (4.30-5.70) L Hemoglobin 9.7 g/dL (13.0-17.5) L Hematocrit 29.2 % (39.0-53.0) L Mean Corpuscular Volume 94 fL (79-100) Mean Corpuscular Hemoglobin 31 pg (25-35) Mean Corpuscular Hemoglobin Concent 33 g/dL (31-37) Red Cell Distribution Width 14.6 % (11.5-14.5) H Platelet Count 183 x10^3/uL (140-400) Neutrophils (%) (Auto) 68 % (31-73) Lymphocytes (%) (Auto) 17 % (24-48) L Monocytes (%) (Auto) 11 % (0-9) H Eosinophils (%) (Auto) 3 % (0-3) Basophils (%) (Auto) 1 % (0-3) Neutrophils # (Auto) 2.4 x10^3uL (1.8-7.7) Lymphocytes # (Auto) 0.6 x10^3/uL (1.0-4.8) L Monocytes # (Auto) 0.4 x10^3/uL (0.0-1.1) Eosinophils # (Auto) 0.1 x10^3/uL (0.0-0.7) Basophils # (Auto) 0.0 x10^3/uL (0.0-0.2) Sodium Level 142 mmol/L (136-145) Potassium Level 3.7 mmol/L (3.5-5.1) Chloride Level 109 mmol/L (98-107) H Carbon Dioxide Level 21 mmol/L (21-32) Anion Gap 12 (6-14) Blood Urea Nitrogen 18 mg/dL (8-26) Creatinine 1.0 mg/dL (0.7-1.3) Estimated GFR (Cockcroft-Gault) 71.5 BUN/Creatinine Ratio 18 (6-20) Glucose Level 82 mg/dL (70-99) Calcium Level 9.5 mg/dL (8.5-10.1) Total Bilirubin 0.6 mg/dL (0.2-1.0) Aspartate Amino Transferase (AST) 39 U/L (15-37) H Alanine Aminotransferase (ALT) 23 U/L (16-63) Alkaline Phosphatase 68 U/L (46-116) Total Protein 7.2 g/dL (6.4-8.2) Albumin 2.7 g/dL (3.4-5.0) L Albumin/Globulin Ratio 0.6 (1.0-1.7) L Current Medications: Meds: Current Medications Medications (Trade) Dose Ordered Sig/Lit Route PRN Reason Start Time Stop Time Status Last Admin Dose Admin Folic Acid (Folic Acid) 1 mg DAILY PO 08/10/20 09:00 08/10/20 08:31 Multivitamins/ Calcium (Thera-M Plus) 1 tab DAILY PO 08/10/20 09:00 08/10/20 08:31 Thiamine HCl (Vitamin B-1) 100 mg DAILY PO 08/10/20 09:00 08/10/20 08:31 I have reviewed the current psychotropics carefully including drug interactions. Risk benefit ratio favors no change other than as noted in my dictated progress note. Diagnosis: Problems: (1) Impulse control disorder, unspecified (2) Anxiety disorder, unspecified (3) Dementia, vascular, with depression (4) Dementia, vascular, with delusions (5) History of alcohol dependence (6) Major neurocognitive disorder (7) Major neurocognitive disorder, due to vascular disease, with behavioral dist urbance, mild JIMMIE,TL Pratt MD Aug 10, 2020 21:54
[2020-08-11 06:20] VITALS: BP_SYST 120; BP_SYST 123; BP_DIAS 76; BP_DIAS 80
[2020-08-11] MEDS: MAGNESIUM OXIDE 400 MG TABLET PO SCH ×3 (10:18→20:39)
[2020-08-11] MEDS: GABAPENTIN 100 MG CAPSULE. PO SCH ×3 (10:18→17:13)
[2020-08-11] MEDS: busPIRone 5 MG TABLET. PO SCH ×2 (10:18→20:39)
[2020-08-11] MEDS: MULTIVITAMIN with MINERAL TABLET. PO SCH (10:18)
[2020-08-11] MEDS: THIAMINE 100 MG TABLET. PO SCH (10:18)
[2020-08-11] MEDS: FOLIC ACID 1 MG TABLET PO SCH (10:19)
[2020-08-11 15:54] VITALS: BP 129/88
--- NOTE | 2020-08-11 22:00 | PDOC ---
Exam Note: Taurus Note: Please also refer to the separate dictated note~for this date of service dictated separately.~Patient seen individually. Discussed the patient with Nursing staff reviewed the chart.~Reviewed interim history and current functioning. Reviewed vital signs,~Labs/ Radiology~and current medications noted below. Continue current treatment with the changes noted in the dictated addendum note Assessment: Vital Signs/I&O: Vital Signs Date Time Temp Pulse Resp B/P (MAP) Pulse Ox O2 Delivery O2 Flow Rate FiO2 08/11/20 15:54 97.0 60 16 129/88 (102) 95 Room Air I & O 08/10/20 08/10/20 08/11/20 15:00 23:00 07:00 Intake Total 565 ml 805 ml Balance 565 ml 805 ml Current Medications: I have reviewed the current psychotropics carefully including drug interactions. Risk benefit ratio favors no change other than as noted in my dictated progress note. Diagnosis: Problems: (1) Impulse control disorder, unspecified (2) History of alcohol dependence (3) Major neurocognitive disorder (4) Major neurocognitive disorder, due to vascular disease, with behavioral disturbance, mild (5) Dementia, vascular, with delusions (6) Dementia, vascular, with depression (7) Anxiety disorder, unspecified TL SAMUEL MD Aug 11, 2020 22:00
[2020-08-12 06:25] VITALS: BP 144/82
[2020-08-12] MEDS: GABAPENTIN 100 MG CAPSULE. PO SCH ×3 (09:00→17:24)
[2020-08-12] MEDS: MAGNESIUM OXIDE 400 MG TABLET PO SCH ×3 (09:00→20:00)
[2020-08-12] MEDS: busPIRone 5 MG TABLET. PO SCH ×2 (11:52→20:00)
[2020-08-12] MEDS: THIAMINE 100 MG TABLET. PO SCH (11:52)
[2020-08-12] MEDS: FOLIC ACID 1 MG TABLET PO SCH (11:53)
[2020-08-12] MEDS: MULTIVITAMIN with MINERAL TABLET. PO SCH (11:53)
[2020-08-12 15:44] VITALS: BP 130/82
--- NOTE | 2020-08-12 21:50 | PDOC ---
Exam Note: Taurus Note: Please also refer to the separate dictated note~for this date of service dictated separately.~Patient seen individually. Discussed the patient with Nursing staff reviewed the chart.~Reviewed interim history and current functioning. Reviewed vital signs,~Labs/ Radiology~and current medications noted below. Continue current treatment with the changes noted in the dictated addendum note Assessment: Vital Signs/I&O: Vital Signs Date Time Temp Pulse Resp B/P (MAP) Pulse Ox O2 Delivery O2 Flow Rate FiO2 08/12/20 15:44 97.4 75 20 130/82 (98) 99 Room Air I & O 08/11/20 08/11/20 08/12/20 15:00 23:00 07:00 Intake Total 550 ml 445 ml Balance 550 ml 445 ml Current Medications: I have reviewed the current psychotropics carefully including drug interactions. Risk benefit ratio favors no change other than as noted in my dictated progress note. Diagnosis: Problems: (1) Impulse control disorder, unspecified (2) Anxiety disorder, unspecified (3) Dementia, vascular, with depression (4) Dementia, vascular, with delusions (5) Major neurocognitive disorder (6) Major neurocognitive disorder, due to vascular disease, with behavioral disturbance, mild (7) History of alcohol dependence TL SAMUEL MD Aug 12, 2020 21:50
[2020-08-13] MEDS: traZODone 50 MG TABLET. PO PRN ×3 (00:35→19:45)
[2020-08-13 06:36] VITALS: BP 133/82
--- NOTE | 2020-08-13 07:13 | PDOC ---
Exam Note: Taurus Note: This note is a late entry for 08/10/2020 covers elements not covered in my initial note. Subjective: The patient was seen face to face in the morning of 08/10/2020 for treatment team meeting with Virgen Payne and Ya (social professionals), Amanda, activity therapy. At the treatment team meeting the patients daughter Sara attended. 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 We had a lengthy discussion about his diagnoses, progress. The patient slept 7-1/4 hours previous night. Appetite is 98%. He tends to drink excessive fluids and we will monitor this. The patient was also seen face to face in the evening of 08/10 with Sana MOREL. Discussed with nursing staff, reviewed the chart. He was quite confused, was talking about #37 and elementary school and the year being 1972. UA has reflex to culture and this could have account for exchange in mental status. BP is stable. Review of Systems: Ambulation impaired. No CV, , pulmonary, eye system symptoms on review. Mental Status Exam: Oriented to himself. Insight and judgment, recent and remote memory, attention and concentration, fund of knowledge is poor consistent with his diagnoses. Laboratory Data: Reviewed. 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 Anxiety disorder unspecified. Impulse control disorder unspecified. Plan: If the patient has UTI, we will treat it. Continue rest psychotropics unchanged. Assessment: Vital Signs/I&O: Vital Signs Date Time Temp Pulse Resp B/P (MAP) Pulse Ox O2 Delivery O2 Flow Rate FiO2 08/13/20 06:36 98.5 68 20 133/82 (99) 99 Room Air I & O 08/12/20 08/12/20 08/13/20 15:00 23:00 07:00 Intake Total 240 ml 480 ml Balance 240 ml 480 ml Current Medications: Meds: Current Medications Medications (Trade) Dose Ordered Sig/Lit Route PRN Reason Start Time Stop Time Status Last Admin Dose Admin Trazodone HCl (Desyrel) 50 mg PRN QHS PRN PO INSOMNIA 08/12/20 23:00 08/13/20 01:58 I have reviewed the current psychotropics carefully including drug interactions. Risk benefit ratio favors no change other than as noted in my dictated progress note. Diagnosis: Problems: (1) Impulse control disorder, unspecified (2) Anxiety disorder, unspecified (3) Dementia, vascular, with depression (4) Dementia, vascular, with delusions (5) History of alcohol dependence (6) Major neurocognitive disorder (7) Major neurocognitive disorder, due to vascular disease, with behavioral disturbance, mild TL SAMUEL MD Aug 13, 2020 07:13
--- NOTE | 2020-08-13 07:36 | PDOC ---
Exam Note: Taurus Note: This note is a late entry for 08/11/2020 covers elements not covered in my initial note. Subjective: The patient was seen face to face in the evening of 08/11/2020 with Della MOREL. Discussed with nursing staff, reviewed the chart. The patient slept 4-3/4 hours previous night. He slept till about 10 oclock on 08/11. He was compliant with attending groups. Review of Systems: Ambulation impaired in wheelchair. No CV, , pulmonary, ey e system symptoms on review. Mental Status Exam: Oriented to himself. Insight and judgment, recent and remote memory, attention and concentration, fund of knowledge is poor consistent with his diagnoses. Laboratory Data: Reviewed. 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 Anxiety disorder unspecified. Impulse control disorder unspecified. Plan: Continue rest psychotropics unchanged. Assessment: Vital Signs/I&O: Vital Signs Date Time Temp Pulse Resp B/P (MAP) Pulse Ox O2 Delivery O2 Flow Rate FiO2 08/13/20 06:36 98.5 68 20 133/82 (99) 99 Room Air I & O 08/12/20 08/12/20 08/13/20 15:00 23:00 07:00 Intake Total 240 ml 480 ml Balance 240 ml 480 ml Current Medications: Meds: Current Medications Medications (Trade) Dose Ordered Sig/Lit Route PRN Reason Start Time Stop Time Status Last Admin Dose Admin Trazodone HCl (Desyrel) 50 mg PRN QHS PRN PO INSOMNIA 08/12/20 23:00 08/13/20 01:58 I have reviewed the current psychotropics carefully including drug interactions. Risk benefit ratio favors no change other than as noted in my dictated progress note. Diagnosis: Problems: (1) Impulse control disorder, unspecified (2) Anxiety disorder, unspecified (3) Dementia, vascular, with depression (4) Dementia, vascular, with delusions (5) History of alcohol dependence (6) Major neurocognitive disorder, due to vascular disease, with behavioral disturbance, mild TL SAMUEL MD Aug 13, 2020 07:35
--- NOTE | 2020-08-13 07:55 | PDOC ---
Exam Note: Taurus Note: This note is a late entry for 08/12/2020 covers elements not covered in my initial note. Subjective: The patient was seen face to face in the evening of 08/12/2020 with Ludwig MOREL. Discussed with nursing staff, reviewed the chart. He was up till 11.30 p.m. The patient slept 7-1/4 hours previous night. After my rounds with the patient I was called by nursing staff around 10.45 p.m. The patient has been extremely anxious, restless, labile in his mood, had to be on the West hallway for reducing sensory stimuli. Review of Systems: Ambulation impaired in wheelchair. No CV, , pulmonary, eye system symptoms on review. Mental Status Exam: Oriented to himself. Insight and judgment, recent and remote memory, attention and concentration, fund of knowledge is poor consistent with his diagnoses. Laboratory Data: Reviewed. 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 Anxiety disorder unspecified. Impulse control disorder unspecified. Plan: Continue current psychotropics and we will add trazodone 50 mg h.s. p.r.n. insomnia, may repeat x2. Continue rest of the psychotropics unchanged. Assessment: Vital Signs/I&O: Vital Signs Date Time Temp Pulse Resp B/P (MAP) Pulse Ox O2 Delivery O2 Flow Rate FiO2 08/13/20 06:36 98.5 68 20 133/82 (99) 99 Room Air I & O 08/12/20 08/12/20 08/13/20 15:00 23:00 07:00 Intake Total 240 ml 480 ml Balance 240 ml 480 ml Current Medications: Meds: Current Medications Medications (Trade) Dose Ordered Sig/Lit Route PRN Reason Start Time Stop Time Status Last Admin Dose Admin Trazodone HCl (Desyrel) 50 mg PRN QHS PRN PO INSOMNIA 08/12/20 23:00 08/13/20 01:58 I have reviewed the current psychotropics carefully including drug interactions. Risk benefit ratio favors no change other than as noted in my dictated progress note. Diagnosis: Problems: (1) Impulse control disorder, unspecified (2) Anxiety disorder, unspecified (3) Dementia, vascular, with depression (4) Major neurocognitive disorder, due to vascular disease, with behavioral disturbance, mild (5) Major neurocognitive disorder (6) History of alcohol dependence (7) Dementia, vascular, with delusions TL SAMUEL MD Aug 13, 2020 07:55
[2020-08-13] MEDS: MAGNESIUM OXIDE 400 MG TABLET PO SCH ×3 (10:09→19:43)
[2020-08-13] MEDS: MULTIVITAMIN with MINERAL TABLET. PO SCH (10:09)
[2020-08-13] MEDS: busPIRone 5 MG TABLET. PO SCH ×2 (10:09→19:43)
[2020-08-13] MEDS: FOLIC ACID 1 MG TABLET PO SCH (10:09)
[2020-08-13] MEDS: GABAPENTIN 100 MG CAPSULE. PO SCH ×3 (10:09→16:22)
[2020-08-13] MEDS: THIAMINE 100 MG TABLET. PO SCH (10:09)
[2020-08-13 15:59] VITALS: BP 131/77
--- NOTE | 2020-08-13 20:52 | PDOC ---
Exam Note: Taurus Note: Please also refer to the separate dictated note~for this date of service dictated separately.~Patient seen individually. Discussed the patient with Nursing staff reviewed the chart.~Reviewed interim history and current functioning. Reviewed vital signs,~Labs/ Radiology~and current medications noted below. Continue current treatment with the changes noted in the dictated addendum note Assessment: Vital Signs/I&O: Vital Signs Date Time Temp Pulse Resp B/P (MAP) Pulse Ox O2 Delivery O2 Flow Rate FiO2 08/13/20 15:59 97.0 70 18 131/77 (95) 100 Room Air I & O 08/12/20 08/12/20 08/13/20 15:00 23:00 07:00 Intake Total 240 ml 480 ml Balance 240 ml 480 ml Current Medications: Meds: Current Medications Medications (Trade) Dose Ordered Sig/Lit Route PRN Reason Start Time Stop Time Status Last Admin Dose Admin Trazodone HCl (Desyrel) 50 mg PRN QHS PRN PO INSOMNIA 08/12/20 23:00 08/13/20 19:45 I have reviewed the current psychotropics carefully including drug interactions. Risk benefit ratio favors no change other than as noted in my dictated progress note. Diagnosis: Problems: (1) Impulse control disorder, unspecified (2) Anxiety disorder, unspecified (3) Dementia, vascular, with depression (4) Dementia, vascular, with delusions (5) History of alcohol dependence (6) Major neurocognitive disorder (7) Major neurocognitive disorder, due to vascular disease, with behavioral disturbance, mild TL SAMUEL MD Aug 13, 2020 20:52
[2020-08-14] MEDS: traZODone 50 MG TABLET. PO PRN ×2 (01:48→20:05)
[2020-08-14 06:04] VITALS: BP 130/81
[2020-08-14] MEDS: FOLIC ACID 1 MG TABLET PO SCH (08:50)
[2020-08-14] MEDS: MAGNESIUM OXIDE 400 MG TABLET PO SCH ×3 (08:50→20:03)
[2020-08-14] MEDS: MULTIVITAMIN with MINERAL TABLET. PO SCH (08:50)
[2020-08-14] MEDS: GABAPENTIN 100 MG CAPSULE. PO SCH ×3 (08:50→16:59)
[2020-08-14] MEDS: THIAMINE 100 MG TABLET. PO SCH (08:50)
[2020-08-14] MEDS: busPIRone 5 MG TABLET. PO SCH ×2 (08:50→20:03)
[2020-08-14 15:58] VITALS: BP 123/68
--- NOTE | 2020-08-14 21:13 | PDOC ---
Exam Note: Taurus Note: Please also refer to the separate dictated note~for this date of service dictated separately.~Patient seen individually. Discussed the patient with Nursing staff reviewed the chart.~Reviewed interim history and current functioning. Reviewed vital signs,~Labs/ Radiology~and current medications noted below. Continue current treatment with the changes noted in the dictated addendum note Assessment: Vital Signs/I&O: Vital Signs Date Time Temp Pulse Resp B/P (MAP) Pulse Ox O2 Delivery O2 Flow Rate FiO2 08/14/20 15:58 96.8 79 18 123/68 (86) 99 08/13/20 15:59 Room Air I & O 08/13/20 08/13/20 08/14/20 15:00 23:00 07:00 Intake Total 240 ml 480 ml Balance 240 ml 480 ml Current Medications: I have reviewed the current psychotropics carefully including drug interactions. Risk benefit ratio favors no change other than as noted in my dictated progress note. Diagnosis: Problems: (1) Impulse control disorder, unspecified (2) Anxiety disorder, unspecified (3) Dementia, vascular, with depression (4) Dementia, vascular, with delusions (5) History of alcohol dependence (6) Major neurocognitive disorder, due to vascular disease, with behavioral disturbance, mild TL SAMUEL MD Aug 14, 2020 21:13
[2020-08-15 05:55] VITALS: BP 142/75
--- NOTE | 2020-08-15 07:57 | PDOC ---
Exam Note: Taurus Note: This note is a late entry for 08/13/2020 covers elements not covered in my initial note. Subjective: The patient was reviewed on telehealth rounds in the evening of 08/13/2020 with Trista MOREL. Discussed with nursing staff, reviewed the chart. The patient slept 4-3/4 hours previous night. Previous evening he was agitated around 10 p.m. Nursing staff had called me. He was unable to sleep. We added trazodone 50 mg p.r.n., may repeat x2 and then he slept till 9.30 this morning, then did alright, less agitated. Review of Systems: Ambulation impaired in wheelchair. No CV, , pulmonary, eye system symptoms on review. Mental Status Exam: Oriented to himself. Insight and judgment, recent and remote memory, attention and concentration, fund of knowledge is poor consistent with his diagnoses. Laboratory Data: Reviewed. 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 Anxiety disorder unspecified. Impulse control disorder unspecified. Plan: Continue current psychotropics. Assessment: Vital Signs/I&O: Vital Signs Date Time Temp Pulse Resp B/P (MAP) Pulse Ox O2 Delivery O2 Flow Rate FiO2 08/15/20 05:55 97.4 73 18 142/75 (97) 98 08/13/20 15:59 Room Air I & O 08/14/20 08/14/20 08/15/20 15:00 23:00 07:00 Intake Total 600 ml 440 ml Balance 600 ml 440 ml Current Medications: I have reviewed the current psychotropics carefully including drug interactions. Risk benefit ratio favors no change other than as noted in my dictated progress note. Diagnosis: Problems: (1) Impulse control disorder, unspecified (2) Anxiety disorder, unspecified (3) Dementia, vascular, with depression (4) Major neurocognitive disorder (5) Major neurocognitive disorder, due to vascular disease, with behavioral disturbance, mild (6) History of alcohol dependence (7) Dementia, vascular, with delusions TL SAMUEL MD Aug 15, 2020 07:57
--- NOTE | 2020-08-15 08:12 | PDOC ---
Exam Note: Taurus Note: This note is a late entry for 08/14/2020 covers elements not covered in my initial note. Subjective: The patient was seen face to face in the evening of 08/14/2020 with Maddy MOREL. Discussed with nursing staff, reviewed the chart. He slept 5-1/4 hours previous night. He had a good night and good day, less agitated today. I met with him in the evening. Review of Systems: Ambulation impaired in wheelchair. No CV, , pulmonary, ey e system symptoms on review. Mental Status Exam: Oriented to himself. Insight and judgment, recent and remote memory, attention and concentration, fund of knowledge is poor consistent with his diagnoses. Laboratory Data: Reviewed. 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 Anxiety disorder unspecified. Impulse control disorder unspecified. Plan: Continue current psychotropics. Assessment: Vital Signs/I&O: Vital Signs Date Time Temp Pulse Resp B/P (MAP) Pulse Ox O2 Delivery O2 Flow Rate FiO2 08/15/20 05:55 97.4 73 18 142/75 (97) 98 08/13/20 15:59 Room Air I & O 08/14/20 08/14/20 08/15/20 14:59 22:59 06:59 Intake Total 600 ml 440 ml Balance 600 ml 440 ml Current Medications: I have reviewed the current psychotropics carefully including drug interactions. Risk benefit ratio favors no change other than as noted in my dictated progress note. Diagnosis: Problems: (1) Impulse control disorder, unspecified (2) Anxiety disorder, unspecified (3) History of alcohol dependence (4) Major neurocognitive disorder (5) Major neurocognitive disorder, due to vascular disease, with behavioral disturbance, mild TL SAMUEL MD Aug 15, 2020 08:12
[2020-08-15] MEDS: THIAMINE 100 MG TABLET. PO SCH (09:22)
[2020-08-15] MEDS: GABAPENTIN 100 MG CAPSULE. PO SCH ×3 (09:22→17:02)
[2020-08-15] MEDS: MAGNESIUM OXIDE 400 MG TABLET PO SCH ×3 (09:22→19:27)
[2020-08-15] MEDS: busPIRone 5 MG TABLET. PO SCH ×2 (09:22→19:27)
[2020-08-15] MEDS: FOLIC ACID 1 MG TABLET PO SCH (09:22)
[2020-08-15] MEDS: MULTIVITAMIN with MINERAL TABLET. PO SCH (09:22)
[2020-08-15 16:02] VITALS: BP 106/74
--- NOTE | 2020-08-15 20:40 | PDOC ---
Exam Note: [place]aurus Note: Please also refer to the separate dictated note~for this date of service dictated separately.~Patient seen individually. Discussed the patient with Nursing staff reviewed the chart.~Reviewed interim history and current functioning. Reviewed vital signs,~Labs/ Radiology~and current medications noted below. Continue current treatment with the changes noted in the dictated addendum note Assessment: Vital Signs/I&O: Vital Signs Date Time Temp Pulse Resp B/P (MAP) Pulse Ox O2 Delivery O2 Flow Rate FiO2 08/15/20 16:02 97.2 77 19 106/74 (85) 100 08/13/20 15:59 Room Air I & O 08/14/20 08/14/20 08/15/20 15:00 23:00 07:00 Intake Total 600 ml 440 ml Balance 600 ml 440 ml Current Medications: I have reviewed the current psychotropics carefully including drug interactions. Risk benefit ratio favors no change other than as noted in my dictated progress note. Diagnosis: Problems: (1) Impulse control disorder, unspecified (2) Anxiety disorder, unspecified (3) Dementia, vascular, with depression (4) Dementia, vascular, with delusions (5) History of alcohol dependence (6) Major neurocognitive disorder (7) Major neurocognitive disorder, due to vascular disease, with behavioral disturbance, mild TL SAMUEL MD Aug 15, 2020 20:40
[2020-08-16 05:37] VITALS: BP 146/81
[2020-08-16] MEDS: FOLIC ACID 1 MG TABLET PO SCH (08:00)
[2020-08-16] MEDS: MAGNESIUM OXIDE 400 MG TABLET PO SCH ×3 (08:00→20:15)
[2020-08-16] MEDS: MULTIVITAMIN with MINERAL TABLET. PO SCH (08:00)
[2020-08-16] MEDS: THIAMINE 100 MG TABLET. PO SCH (08:00)
[2020-08-16] MEDS: GABAPENTIN 100 MG CAPSULE. PO SCH ×3 (08:01→17:18)
[2020-08-16] MEDS: busPIRone 5 MG TABLET. PO SCH ×2 (08:01→20:15)
[2020-08-16 16:25] VITALS: BP 149/79
[2020-08-16] MEDS: traZODone 50 MG TABLET. PO PRN (20:16)
--- NOTE | 2020-08-16 20:37 | PDOC ---
Exam Note: Taurus Note: Please also refer to the separate dictated note~for this date of service dictated separately.~Patient seen individually. Discussed the patient with Nursing staff reviewed the chart.~Reviewed interim history and current functioning. Reviewed vital signs,~Labs/ Radiology~and current medications noted below. Continue current treatment with the changes noted in the dictated addendum note Assessment: Vital Signs/I&O: Vital Signs Date Time Temp Pulse Resp B/P (MAP) Pulse Ox O2 Delivery O2 Flow Rate FiO2 08/16/20 16:25 96.5 72 18 149/79 (102) 97 08/13/20 15:59 Room Air I & O 08/15/20 08/15/20 08/16/20 15:00 23:00 07:00 Intake Total 840 ml 120 ml Balance 840 ml 120 ml Current Medications: I have reviewed the current psychotropics carefully including drug interactions. Risk benefit ratio favors no change other than as noted in my dictated progress note. Diagnosis: Problems: (1) Impulse control disorder, unspecified (2) Anxiety disorder, unspecified (3) Dementia, vascular, with delusions (4) Dementia, vascular, with depression (5) Major neurocognitive disorder (6) Major neurocognitive disorder, due to vascular disease, with behavioral disturbance, mild TL SAMUEL MD Aug 16, 2020 20:37
[2020-08-17 06:00] VITALS: BP 150/79
--- NOTE | 2020-08-17 06:50 | PDOC ---
Exam Note: Taurus Note: This note is a late entry for 08/15/2020 covers elements not covered in my initial note. Subjective: The patient was seen face to face in the evening of 08/15/2020 with Maddy MOREL. Discussed with nursing staff, reviewed the chart. He slept 6-1/4 hours previous night. He had a good day, less agitated, remains confused, more lucid at night according to Jenna MOREL. Review of Systems: Ambulation impaired in wheelchair. No CV, , pulmonary, eye system symptoms on review. Mental Status Exam: Oriented to himself. He was little more verbally interactive, less dismissive and sarcastic as I met with him, pleasant to some extent. Insight and judgment, recent and remote memory, attention and concentration, fund of knowledge is poor consistent with his diagnoses. Laboratory Data: Reviewed. 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 Anxiety disorder unspecified. Impulse control disorder unspecified. Plan: Continue current psychotropics. Assessment: Vital Signs/I&O: Vital Signs Date Time Temp Pulse Resp B/P (MAP) Pulse Ox O2 Delivery O2 Flow Rate FiO2 08/17/20 06:00 97.5 71 16 150/79 (102) 99 08/13/20 15:59 Room Air I & O 08/16/20 08/16/20 08/17/20 15:00 23:00 07:00 Intake Total 680 ml 600 ml Balance 680 ml 600 ml Current Medications: I have reviewed the current psychotropics carefully including drug interactions. Risk benefit ratio favors no change other than as noted in my dictated progress note. Diagnosis: Problems: (1) Anxiety disorder, unspecified (2) Impulse control disorder, unspecified (3) Dementia, vascular, with delusions (4) History of alcohol dependence (5) Major neurocognitive disorder (6) Major neurocognitive disorder, due to vascular disease, with behavioral disturbance, mild (7) Dementia, vascular, with depression TL SAMUEL MD Aug 17, 2020 06:50
--- NOTE | 2020-08-17 07:21 | PDOC ---
Exam Note: Taurus Note: This note is a late entry for 08/16/2020 covers elements not covered in my initial note. Subjective: The patient was seen face to face in the evening of 08/16/2020 with Maddy MOREL. Discussed with nursing staff, reviewed the chart. He slept 7-1/4 hours previous night. He has done much better, today less anxious, restless. Review of Systems: Ambulation impaired in wheelchair. No CV, , pulmonary, eye system symptoms on review. Mental Status Exam: Oriented to himself. He is pleasant, verbal, interactive, though not very verbal in his speech. Insight and judgment, recent and remote memory, attention and concentration, fund of knowledge is poor consistent with his diagnoses. Laboratory Data: Reviewed. 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 Anxiety disorder unspecified. Impulse control disorder unspecified. Plan: Continue current psychotropics. Assessment: Vital Signs/I&O: Vital Signs Date Time Temp Pulse Resp B/P (MAP) Pulse Ox O2 Delivery O2 Flow Rate FiO2 08/17/20 06:00 97.5 71 16 150/79 (102) 99 08/13/20 15:59 Room Air I & O 08/16/20 08/16/20 08/17/20 14:59 22:59 06:59 Intake Total 680 ml 600 ml Balance 680 ml 600 ml Current Medications: I have reviewed the current psychotropics carefully including drug interactions. Risk benefit ratio favors no change other than as noted in my dictated progress note. Diagnosis: Problems: (1) Impulse control disorder, unspecified (2) Anxiety disorder, unspecified (3) Dementia, vascular, with depression (4) Dementia, vascular, with delusions (5) Major neurocognitive disorder, due to vascular disease, with behavioral disturbance, mild (6) Major neurocognitive disorder (7) History of alcohol dependence TL SAMUEL MD Aug 17, 2020 07:21
[2020-08-17] MEDS: busPIRone 5 MG TABLET. PO SCH ×2 (09:41→19:36)
[2020-08-17] MEDS: MAGNESIUM OXIDE 400 MG TABLET PO SCH ×3 (09:41→19:36)
[2020-08-17] MEDS: MULTIVITAMIN with MINERAL TABLET. PO SCH (09:41)
[2020-08-17] MEDS: THIAMINE 100 MG TABLET. PO SCH (09:41)
[2020-08-17] MEDS: FOLIC ACID 1 MG TABLET PO SCH (09:41)
[2020-08-17] MEDS: GABAPENTIN 100 MG CAPSULE. PO SCH ×3 (09:41→17:11)
--- NOTE | 2020-08-17 10:22 | TX PLAN ---
Interdisciplinary Tx Plan Admission Information Aug 09, 2020 at 10:55 Legal Status (on Admission): Voluntary DPOA/Guardian Name: Saranya Roberts Contact Other Contact Name: [facility] Verified Code Status: DNR Allergies: Coded Allergies: No Known Drug Allergies (Unverified , 05/27/20) Diagnoses Primary Diagnosis: Major Neurocognitive D/O , vascular Alzheimers with delusions, depression, B/D Reasons for Admission: Hallucinations, Combative, Poor impulse control Problem in Patient's Words: N/A Additional Admission Comments: According to the intake, pt was on ICU being combative with cares, restless, attempting to get out of bed, delusional -- thinks he needs to get on a plane and worried he'll miss his flight. Problems Active Problems: delusional restless Inactive Problems: Medication compliant crushed Pt Strengths/Limitations Ability for Alexander: Poor Cognitive Functioning/Ability: Poor Communication Skills/Ability: Fair Financial Resources: Fair Insight/Judgement: Poor Intellectual Ability: Poor Physical Health: Poor Social Skills: Fair Stability in Family: Good Stability in School/Work: Poor Verbal Skills: Fair Discharge Criteria Discharge Criteria: No need for close observ., Adequate arrangements @DC, Improved behavior, Improved mood/thought Preliminary Discharge Plan Preliminary DC Plan: Placement Needed Special Precautions Fall Risk: Moderate Initial D/C Plan Pt will need placement in LTC Identified Discharge Needs: Referrals for a higher level of care Currently Utilized Resources Currently Utilized Resources/P: Primary Care Physician Referrals Community Resources: Placement to LTC Identified Problems/Hx/Goals Objectives/Short-Term Goals Short Term Goals: Dec. Aggression, Dec. Outbursts, Medication Stabilization, Monitor Med Effects, Promote Coping Skill Short Term Goals in Patient's: NA Interventions/Frequency Staff Interventions/Frequency&: Psychiatrist to assess pt at least 3x per week for medication mgmt. Social Work to assess pt at least 2x per week for dishcarge planning and barrier potentials. Nursing to assess medications, manage behaviors and complete 15 minute checks daily. 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 Education: Pt has his Master in Education Community Follow-up Primary care physician Treatment Plan Explained Patient/Nutritionists had this treatment plan explained to him/her as indicated by the signature below and has been given the opportunity to ask questions and make suggestions: Date: Patient/Nutritionists Signature: Status Update Update Pt is eating roughly 75% of meals and sleeping on average 5.75 hours per night; last night pt slept 7 hours. Pt is mostly calm and cooperative but does continue to have hallucinations and delusions but appears to have decreased significantly. Pt is wandering in the w/c throughout the hallway and appears to be taking his medication crushed in pudding. Pt is on Gabepentin 100mg TIC, Buspar 5mg BID and Zyprexa as PRN. Pt has referrals being sent out for placement. Pt can discharge once placement is found. TAMMIE DEY Aug 17, 2020 10:22
[2020-08-17 16:14] VITALS: BP 123/79
--- NOTE | 2020-08-17 20:50 | PDOC ---
Exam Note: Taurus Note: Please also refer to the separate dictated note~for this date of service dictated separately.~Patient seen individually. Discussed the patient with Nursing staff reviewed the chart.~Reviewed interim history and current functioning. Reviewed vital signs,~Labs/ Radiology~and current medications noted below. Continue current treatment with the changes noted in the dictated addendum note Assessment: Vital Signs/I&O: Vital Signs Date Time Temp Pulse Resp B/P (MAP) Pulse Ox O2 Delivery O2 Flow Rate FiO2 08/17/20 16:14 97.5 69 19 123/79 (94) 100 08/13/20 15:59 Room Air I & O 08/16/20 08/16/20 08/17/20 15:00 23:00 07:00 Intake Total 680 ml 600 ml Balance 680 ml 600 ml Current Medications: I have reviewed the current psychotropics carefully including drug interactions. Risk benefit ratio favors no change other than as noted in my dictated progress note. Diagnosis: Problems: (1) Impulse control disorder, unspecified (2) Anxiety disorder, unspecified (3) Dementia, vascular, with depression (4) Dementia, vascular, with delusions (5) History of alcohol dependence (6) Major neurocognitive disorder (7) Major neurocognitive disorder, due to vascular disease, with behavioral disturbance, mild TL SAMUEL MD Aug 17, 2020 20:50
[2020-08-18 06:40] VITALS: BP 114/65
[2020-08-18] MEDS: busPIRone 5 MG TABLET. PO SCH ×2 (08:35→20:08)
[2020-08-18] MEDS: GABAPENTIN 100 MG CAPSULE. PO SCH ×3 (08:35→17:09)
[2020-08-18] MEDS: FOLIC ACID 1 MG TABLET PO SCH (08:35)
[2020-08-18] MEDS: MAGNESIUM OXIDE 400 MG TABLET PO SCH ×3 (08:35→20:08)
[2020-08-18] MEDS: THIAMINE 100 MG TABLET. PO SCH (08:35)
[2020-08-18] MEDS: MULTIVITAMIN with MINERAL TABLET. PO SCH (08:35)
[2020-08-18 15:56] VITALS: BP 127/67
[2020-08-18] MEDS ORDERED: BISACODYL 10 MG SUPP.RECT PR PRN (18:15)
[2020-08-18] MEDS: traZODone 50 MG TABLET. PO PRN (20:08)
--- NOTE | 2020-08-18 20:58 | PDOC ---
Exam Note: Taurus Note: Please also refer to the separate dictated note~for this date of service dictated separately.~Patient seen individually. Discussed the patient with Nursing staff reviewed the chart.~Reviewed interim history and current functioning. Reviewed vital signs,~Labs/ Radiology~and current medications noted below. Continue current treatment with the changes noted in the dictated addendum note Assessment: Vital Signs/I&O: Vital Signs Date Time Temp Pulse Resp B/P (MAP) Pulse Ox O2 Delivery O2 Flow Rate FiO2 08/18/20 15:56 96.1 83 16 127/67 (87) 100 08/18/20 06:40 Room Air I & O 08/17/20 08/17/20 08/18/20 15:00 23:00 07:00 Intake Total 480 ml 360 ml Balance 480 ml 360 ml Current Medications: I have reviewed the current psychotropics carefully including drug interactions. Risk benefit ratio favors no change other than as noted in my dictated progress note. Diagnosis: Problems: (1) Impulse control disorder, unspecified (2) Anxiety disorder, unspecified (3) Dementia, vascular, with depression (4) Dementia, vascular, with delusions (5) History of alcohol dependence (6) Major neurocognitive disorder, due to vascular disease, with behavioral disturbance, mild TL SAMUEL MD Aug 18, 2020 20:58
[2020-08-19 06:00] VITALS: BP 122/65
[2020-08-19] MEDS: busPIRone 5 MG TABLET. PO SCH ×2 (07:55→19:40)
[2020-08-19] MEDS: MULTIVITAMIN with MINERAL TABLET. PO SCH (07:55)
[2020-08-19] MEDS: FOLIC ACID 1 MG TABLET PO SCH (07:55)
[2020-08-19] MEDS: GABAPENTIN 100 MG CAPSULE. PO SCH ×3 (07:55→17:00)
[2020-08-19] MEDS: MAGNESIUM OXIDE 400 MG TABLET PO SCH ×3 (07:55→19:45)
[2020-08-19] MEDS: THIAMINE 100 MG TABLET. PO SCH (07:55)
[2020-08-19 14:32] VITALS: BP 102/65
[2020-08-19] MEDS: traZODone 50 MG TABLET. PO PRN (19:45)
--- NOTE | 2020-08-19 20:51 | PDOC ---
Exam Note: Taurus Note: Please also refer to the separate dictated note~for this date of service dictated separately.~Patient seen individually. Discussed the patient with Nursing staff reviewed the chart.~Reviewed interim history and current functioning. Reviewed vital signs,~Labs/ Radiology~and current medications noted below. Continue current treatment with the changes noted in the dictated addendum note Assessment: Vital Signs/I&O: Vital Signs Date Time Temp Pulse Resp B/P (MAP) Pulse Ox O2 Delivery O2 Flow Rate FiO2 08/19/20 14:32 97.4 89 18 102/65 (77) 94 08/19/20 06:00 Room Air I & O 08/18/20 08/18/20 08/19/20 15:00 23:00 07:00 Intake Total 875 ml 420 ml Balance 875 ml 420 ml Current Medications: I have reviewed the current psychotropics carefully including drug interactions. Risk benefit ratio favors no change other than as noted in my dictated progress note. Diagnosis: Problems: (1) Impulse control disorder, unspecified (2) Anxiety disorder, unspecified (3) Dementia, vascular, with depression (4) Dementia, vascular, with delusions (5) History of alcohol dependence (6) Major neurocognitive disorder (7) Major neurocognitive disorder, due to vascular disease, with behavioral disturbance, mild TL SAMUEL MD Aug 19, 2020 20:51
[2020-08-20 06:30] VITALS: BP 128/76
--- NOTE | 2020-08-20 07:12 | PDOC ---
Exam Note: Taurus Note: This note is a late entry for 08/17/2020 covers elements not covered in my initial note. Subjective: The patient was seen face to face in the morning of 08/17/2020 for treatment team meeting with Virgen Payne Nikki (social work professor), Alicia, activity therapy staff, and Franky RN. Discussed with nursing staff, reviewed the chart. He slept 7 hours previous night. He wanders around in his wheelchair. Appetite is 75%. He is less agitated, labile in his mood as I met with him at some length. Review of Systems: Ambulation impaired in wheelchair. No CV, , pulmonary, eye system symptoms on review. Mental Status Exam: Oriented to himself. He is pleasant, labile in his mood. Insight and judgment, recent and remote memory, attention and concentration, fund of knowledge is poor consistent with his diagnoses. Laboratory Data: Reviewed. 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 Anxiety disorder unspecified. Impulse control disorder unspecified. Plan: Continue current psychotropics. Assessment: Vital Signs/I&O: Vital Signs Date Time Temp Pulse Resp B/P (MAP) Pulse Ox O2 Delivery O2 Flow Rate FiO2 08/20/20 06:30 98.1 88 14 128/76 (93) 98 08/19/20 06:00 Room Air I & O 08/19/20 08/19/20 08/20/20 15:00 23:00 07:00 Intake Total 0 ml 720 ml Balance 0 ml 720 ml Current Medications: I have reviewed the current psychotropics carefully including drug interactions. Risk benefit ratio favors no change other than as noted in my dictated progress note. Diagnosis: Problems: (1) Impulse control disorder, unspecified (2) Anxiety disorder, unspecified (3) Dementia, vascular, with depression (4) Dementia, vascular, with delusions (5) History of alcohol dependence (6) Major neurocognitive disorder (7) Major neurocognitive disorder, due to vascular disease, with behavioral disturbance, mild TL SAMUEL MD Aug 20, 2020 07:12
--- NOTE | 2020-08-20 07:31 | PDOC ---
Exam Note: Taurus Note: This note is a late entry for 08/18/2020 covers elements not covered in my initial note. Subjective: The patient was seen face to face in the evening of 08/18/2020 with Franky MOREL. Discussed with nursing staff, reviewed the chart. Previous night the patient was somewhat resistive, specifically in his showers but much of the day on 08/18, he was appropriate, singing to himself, pleasant and less anxious. The patient slept 7 hours previous night. Review of Systems: Ambulation impaired in wheelchair. No CV, , pulmonary, eye system symptoms on review. Mental Status Exam: Oriented to himself. He was less sarcastic as I met with him, less irritable, pleasant. Insight and judgment, recent and remote memory, attention and concentration, fund of knowledge is poor consistent with his diagnoses. Laboratory Data: Reviewed. 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 Anxiety disorder unspecified. Impulse control disorder unspecified. Plan: Continue current psychotropics. Assessment: Vital Signs/I&O: Vital Signs Date Time Temp Pulse Resp B/P (MAP) Pulse Ox O2 Delivery O2 Flow Rate FiO2 08/20/20 06:30 98.1 88 14 128/76 (93) 98 08/19/20 06:00 Room Air I & O 08/19/20 08/19/20 08/20/20 15:00 23:00 07:00 Intake Total 0 ml 720 ml Balance 0 ml 720 ml Current Medications: I have reviewed the current psychotropics carefully including drug interactions. Risk benefit ratio favors no change other than as noted in my dictated progress note. Diagnosis: Problems: (1) Impulse control disorder, unspecified (2) Anxiety disorder, unspecified (3) Dementia, vascular, with depression (4) Dementia, vascular, with delusions (5) History of alcohol dependence (6) Major neurocognitive disorder (7) Major neurocognitive disorder, due to vascular disease, with behavioral disturbance, mild TL SAMUEL MD Aug 20, 2020 07:31
--- NOTE | 2020-08-20 07:49 | PDOC ---
Exam Note: Taurus Note: This note is a late entry for 08/19/2020 covers elements not covered in my initial note. Subjective: The patient was seen face to face in the evening of 08/19/2020 with Corby MOREL. Discussed with nursing staff, reviewed the chart. The patient slept 7-1/2 hours previous night. He takes his medications in pudding. He had a slow start to the day and then did better. Review of Systems: Ambulation impaired in wheelchair. No CV, , pulmonary, eye system symptoms on review. Mental Status Exam: Oriented to himself. I met with him in the evening. He is wheeling himself around the unit in his wheelchair. Mask is down and I encouraged him to put it back but he seems somewhat dismissive of this. Insight and judgment, recent and remote memory, attention and concentration, fund of knowledge is poor consistent with his diagnoses. Laboratory Data: Reviewed. 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 Anxiety disorder unspecified. Impulse control disorder unspecified. Plan: Continue current psychotropics. Assessment: Vital Signs/I&O: Vital Signs Date Time Temp Pulse Resp B/P (MAP) Pulse Ox O2 Delivery O2 Flow Rate FiO2 08/20/20 06:30 98.1 88 14 128/76 (93) 98 08/19/20 06:00 Room Air I & O 08/19/20 08/19/20 08/20/20 15:00 23:00 07:00 Intake Total 0 ml 720 ml Balance 0 ml 720 ml Current Medications: I have reviewed the current psychotropics carefully including drug interactions. Risk benefit ratio favors no change other than as noted in my dictated progress note. Diagnosis: Problems: (1) Impulse control disorder, unspecified (2) Anxiety disorder, unspecified (3) Dementia, vascular, with depression (4) Dementia, vascular, with delusions (5) History of alcohol dependence (6) Major neurocognitive disorder (7) Major neurocognitive disorder, due to vascular disease, with behavioral disturbance, mild TL SAMUEL MD Aug 20, 2020 07:49
[2020-08-20] MEDS: MAGNESIUM OXIDE 400 MG TABLET PO SCH ×3 (08:33→19:53)
[2020-08-20] MEDS: THIAMINE 100 MG TABLET. PO SCH (08:33)
[2020-08-20] MEDS: busPIRone 5 MG TABLET. PO SCH ×2 (08:34→19:53)
[2020-08-20] MEDS: MULTIVITAMIN with MINERAL TABLET. PO SCH (08:34)
[2020-08-20] MEDS: FOLIC ACID 1 MG TABLET PO SCH (08:34)
[2020-08-20] MEDS: GABAPENTIN 100 MG CAPSULE. PO SCH ×3 (08:34→16:49)
[2020-08-20 09:47] LABS: BASO % 0 % (0-3); EOS # 0.1 x10^3/uL (0.0-0.7); EOS % 2 % (0-3); HEMATOCRIT 25.5 % (39.0-53.0); HEMOGLOBIN 8.5 g/dL (13.0-17.5); LYMPH # 0.4 x10^3/uL (1.0-4.8); LYMPH % 9 % (24-48); MEAN CORPUSCULAR HEMOGLOBIN 32 pg (25-35); MEAN CORPUSCULAR HGB CONC 33 g/dL (31-37); MEAN CORPUSCULAR VOLUME 96 fL (79-100); MONO # 0.3 x10^3/uL (0.0-1.1); MONO % 7 % (0-9); NEUT # 3.5 x10^3uL (1.8-7.7); NEUT % 82 % (31-73); PLATELET COUNT 189 x10^3/uL (140-400); RED BLOOD COUNT 2.67 x10^6/uL (4.30-5.70); RED CELL DISTRIBUTION WIDTH 15.8 % (11.5-14.5); WHITE BLOOD COUNT 4.3 x10^3/uL (4.0-11.0)
[2020-08-20 10:02] LABS: ALBUMIN 2.5 g/dL (3.4-5.0); ALBUMIN/GLOBULIN RATIO 0.6 (1.0-1.7); CALCIUM 9.7 mg/dL (8.5-10.1); GFR 71.5; POTASSIUM 4.1 mmol/L (3.5-5.1); TOTAL BILIRUBIN 0.3 mg/dL (0.2-1.0); TOTAL PROTEIN 6.6 g/dL (6.4-8.2)
[2020-08-20 15:50] VITALS: BP 129/77
[2020-08-20] MEDS: traZODone 50 MG TABLET. PO PRN (19:55)
--- NOTE | 2020-08-20 20:36 | PDOC ---
Exam Note: Taurus Note: Please also refer to the separate dictated note~for this date of service dictated separately.~Patient seen individually. Discussed the patient with Nursing staff reviewed the chart.~Reviewed interim history and current functioning. Reviewed vital signs,~Labs/ Radiology~and current medications noted below. Continue current treatment with the changes noted in the dictated addendum note Assessment: Vital Signs/I&O: Vital Signs Date Time Temp Pulse Resp B/P (MAP) Pulse Ox O2 Delivery O2 Flow Rate FiO2 08/20/20 15:50 97.6 81 18 129/77 (94) 100 Room Air I & O 08/19/20 08/19/20 08/20/20 15:00 23:00 07:00 Intake Total 0 ml 720 ml Balance 0 ml 720 ml Labs: Laboratory Tests Test 08/20/20 08:45 White Blood Count 4.3 x10^3/uL (4.0-11.0) Red Blood Count 2.67 x10^6/uL (4.30-5.70) L Hemoglobin 8.5 g/dL (13.0-17.5) L Hematocrit 25.5 % (39.0-53.0) L Mean Corpuscular Volume 96 fL (79-100) Mean Corpuscular Hemoglobin 32 pg (25-35) Mean Corpuscular Hemoglobin Concent 33 g/dL (31-37) Red Cell Distribution Width 15.8 % (11.5-14.5) H Platelet Count 189 x10^3/uL (140-400) Neutrophils (%) (Auto) 82 % (31-73) H Lymphocytes (%) (Auto) 9 % (24-48) L Monocytes (%) (Auto) 7 % (0-9) Eosinophils (%) (Auto) 2 % (0-3) Basophils (%) (Auto) 0 % (0-3) Neutrophils # (Auto) 3.5 x10^3uL (1.8-7.7) Lymphocytes # (Auto) 0.4 x10^3/uL (1.0-4.8) L Monocytes # (Auto) 0.3 x10^3/uL (0.0-1.1) Eosinophils # (Auto) 0.1 x10^3/uL (0.0-0.7) Basophils # (Auto) 0.0 x10^3/uL (0.0-0.2) Sodium Level 138 mmol/L (136-145) Potassium Level 4.1 mmol/L (3.5-5.1) Chloride Level 104 mmol/L (98-107) Carbon Dioxide Level 24 mmol/L (21-32) Anion Gap 10 (6-14) Blood Urea Nitrogen 25 mg/dL (8-26) Creatinine 1.0 mg/dL (0.7-1.3) Estimated GFR (Cockcroft-Gault) 71.5 BUN/Creatinine Ratio 25 (6-20) H Glucose Level 106 mg/dL (70-99) H Calcium Level 9.7 mg/dL (8.5-10.1) Total Bilirubin 0.3 mg/dL (0.2-1.0) Aspartate Amino Transferase (AST) 21 U/L (15-37) Alanine Aminotransferase (ALT) 19 U/L (16-63) Alkaline Phosphatase 69 U/L (46-116) Total Protein 6.6 g/dL (6.4-8.2) Albumin 2.5 g/dL (3.4-5.0) L Albumin/Globulin Ratio 0.6 (1.0-1.7) L Current Medications: I have reviewed the current psychotropics carefully including drug interactions. Risk benefit ratio favors no change other than as noted in my dictated progress note. Diagnosis: Problems: (1) Impulse control disorder, unspecified (2) Anxiety disorder, unspecified (3) Dementia, vascular, with depression (4) Dementia, vascular, with delusions (5) History of alcohol dependence (6) Major neurocognitive disorder (7) Major neurocognitive disorder, due to vascular disease, with behavioral disturbance, mild TL SAMUEL MD Aug 20, 2020 20:36
[2020-08-21 06:26] VITALS: BP 121/75
--- NOTE | 2020-08-21 07:47 | PDOC ---
Exam Note: [place]aurus Note: This note is a late entry for 08/20/2020 covers elements not covered in my initial note. Subjective: The patient was seen face to face in the evening of 08/20/2020 with Corby MOREL. Discussed with nursing staff, reviewed the chart. The patient slept 7-1/2 hours previous night. He has been calmer, less anxious, interacting more with staff and peers. Review of Systems: Ambulation impaired in wheelchair. No CV, , pulmonary, eye, ENT system symptoms on review. Mental Status Exam: Oriented to himself. Insight and judgment, recent and remote memory, attention and concentration, fund of knowledge is poor consistent with his diagnoses. Laboratory Data: Reviewed. 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 Anxiety disorder unspecified. Impulse control disorder unspecified. Plan: Continue current psychotropics. Assessment: Vital Signs/I&O: Vital Signs Date Time Temp Pulse Resp B/P (MAP) Pulse Ox O2 Delivery O2 Flow Rate FiO2 08/21/20 06:26 98.7 85 16 121/75 (90) 99 Room Air I & O 08/20/20 08/20/20 08/21/20 14:59 22:59 06:59 Intake Total 480 ml 480 ml 240 ml Balance 480 ml 480 ml 240 ml Labs: Laboratory Tests Test 08/20/20 08:45 White Blood Count 4.3 x10^3/uL (4.0-11.0) Red Blood Count 2.67 x10^6/uL (4.30-5.70) L Hemoglobin 8.5 g/dL (13.0-17.5) L Hematocrit 25.5 % (39.0-53.0) L Mean Corpuscular Volume 96 fL (79-100) Mean Corpuscular Hemoglobin 32 pg (25-35) Mean Corpuscular Hemoglobin Concent 33 g/dL (31-37) Red Cell Distribution Width 15.8 % (11.5-14.5) H Platelet Count 189 x10^3/uL (140-400) Neutrophils (%) (Auto) 82 % (31-73) H Lymphocytes (%) (Auto) 9 % (24-48) L Monocytes (%) (Auto) 7 % (0-9) Eosinophils (%) (Auto) 2 % (0-3) Basophils (%) (Auto) 0 % (0-3) Neutrophils # (Auto) 3.5 x10^3uL (1.8-7.7) Lymphocytes # (Auto) 0.4 x10^3/uL (1.0-4.8) L Monocytes # (Auto) 0.3 x10^3/uL (0.0-1.1) Eosinophils # (Auto) 0.1 x10^3/uL (0.0-0.7) Basophils # (Auto) 0.0 x10^3/uL (0.0-0.2) Sodium Level 138 mmol/L (136-145) Potassium Level 4.1 mmol/L (3.5-5.1) Chloride Level 104 mmol/L (98-107) Carbon Dioxide Level 24 mmol/L (21-32) Anion Gap 10 (6-14) Blood Urea Nitrogen 25 mg/dL (8-26) Creatinine 1.0 mg/dL (0.7-1.3) Estimated GFR (Cockcroft-Gault) 71.5 BUN/Creatinine Ratio 25 (6-20) H Glucose Level 106 mg/dL (70-99) H Calcium Level 9.7 mg/dL (8.5-10.1) Total Bilirubin 0.3 mg/dL (0.2-1.0) Aspartate Amino Transferase (AST) 21 U/L (15-37) Alanine Aminotransferase (ALT) 19 U/L (16-63) Alkaline Phosphatase 69 U/L (46-116) Total Protein 6.6 g/dL (6.4-8.2) Albumin 2.5 g/dL (3.4-5.0) L Albumin/Globulin Ratio 0.6 (1.0-1.7) L Current Medications: I have reviewed the current psychotropics carefully including drug interactions. Risk benefit ratio favors no change other than as noted in my dictated progress note. Diagnosis: Problems: (1) Impulse control disorder, unspecified (2) Anxiety disorder, unspecified (3) Dementia, vascular, with depression (4) Dementia, vascular, with delusions (5) History of alcohol dependence (6) Major neurocognitive disorder (7) Major neurocognitive disorder, due to vascular disease, with behavioral disturbance, mild TL SAMUEL MD Aug 21, 2020 07:47
[2020-08-21] MEDS: busPIRone 5 MG TABLET. PO SCH ×2 (08:03→19:39)
[2020-08-21] MEDS: GABAPENTIN 100 MG CAPSULE. PO SCH ×3 (08:03→17:00)
[2020-08-21] MEDS: THIAMINE 100 MG TABLET. PO SCH (08:03)
[2020-08-21] MEDS: MAGNESIUM OXIDE 400 MG TABLET PO SCH ×3 (08:03→19:40)
[2020-08-21] MEDS: FOLIC ACID 1 MG TABLET PO SCH (08:03)
[2020-08-21] MEDS: MULTIVITAMIN with MINERAL TABLET. PO SCH (08:03)
[2020-08-21 16:13] VITALS: BP 149/80
[2020-08-21] MEDS: traZODone 50 MG TABLET. PO PRN (19:40)
--- NOTE | 2020-08-21 20:52 | PDOC ---
Exam Note: [place]aurus Note: Please also refer to the separate dictated note~for this date of service dictated separately.~Patient seen individually. Discussed the patient with Nursing staff reviewed the chart.~Reviewed interim history and current functioning. Reviewed vital signs,~Labs/ Radiology~and current medications noted below. Continue current treatment with the changes noted in the dictated addendum note Assessment: Vital Signs/I&O: Vital Signs Date Time Temp Pulse Resp B/P (MAP) Pulse Ox O2 Delivery O2 Flow Rate FiO2 08/21/20 16:13 97.0 87 19 149/80 (103) 94 08/21/20 06:26 Room Air I & O 08/20/20 08/20/20 08/21/20 15:00 23:00 07:00 Intake Total 480 ml 480 ml 240 ml Balance 480 ml 480 ml 240 ml Current Medications: I have reviewed the current psychotropics carefully including drug interactions. Risk benefit ratio favors no change other than as noted in my dictated progress note. Diagnosis: Problems: (1) Impulse control disorder, unspecified (2) Anxiety disorder, unspecified (3) Dementia, vascular, with depression (4) Dementia, vascular, with delusions (5) History of alcohol dependence (6) Major neurocognitive disorder (7) Major neurocognitive disorder, due to vascular disease, with behavioral disturbance, mild TL SAMUEL MD Aug 21, 2020 20:52
[2020-08-22 06:17] VITALS: BP 148/89
[2020-08-22 06:40] LABS: HEMATOCRIT 25.5 % (39.0-53.0); HEMOGLOBIN 8.5 g/dL (13.0-17.5); RED BLOOD COUNT 2.7 x10^6/uL (4.30-5.70); RED CELL DISTRIBUTION WIDTH 15.6 % (11.5-14.5); WHITE BLOOD COUNT 3.3 x10^3/uL (4.0-11.0)
[2020-08-22 06:57] LABS: ALBUMIN 2.6 g/dL (3.4-5.0); ALBUMIN/GLOBULIN RATIO 0.6 (1.0-1.7); CALCIUM 9.3 mg/dL (8.5-10.1); CREATININE 0.9 mg/dL (0.7-1.3); GFR 80.8; POTASSIUM 4.5 mmol/L (3.5-5.1); TOTAL BILIRUBIN 0.3 mg/dL (0.2-1.0); TOTAL PROTEIN 6.8 g/dL (6.4-8.2)
--- NOTE | 2020-08-22 07:23 | PDOC ---
Exam Note: [place] Note: This note is a late entry for 08/21/2020 covers elements not covered in my initial note. Subjective: The patient was seen face to face in the evening of 08/21/2020 with Maddy MOREL. Discussed with nursing staff, reviewed the chart. The patient slept 6-1/2 hours previous night. He has done reasonably well, singing at times, appropriate, less agitated, less sarcastic. Review of Systems: Ambulation impaired in wheelchair. He has difficulty keeping his mask in place. No CV, , pulmonary, eye, ENT system symptoms on review. Mental Status Exam: Oriented to himself. Insight and judgment, recent and remote memory, attention and concentration, fund of knowledge is poor consistent with his diagnoses. Laboratory Data: Reviewed. 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 Anxiety disorder unspecified. Impulse control disorder unspecified. Plan: We may need to increase the Neurontin further as clinically indicated, if behavioral dyscontrol or anxiety worsens. Assessment: Vital Signs/I&O: Vital Signs Date Time Temp Pulse Resp B/P (MAP) Pulse Ox O2 Delivery O2 Flow Rate FiO2 08/22/20 06:17 97.0 77 18 148/89 (108) 99 08/21/20 06:26 Room Air I & O 08/21/20 08/21/20 08/22/20 15:00 23:00 07:00 Intake Total 840 ml 480 ml 240 ml Balance 840 ml 480 ml 240 ml Labs: Laboratory Tests Test 08/22/20 06:07 White Blood Count 3.3 x10^3/uL (4.0-11.0) L Red Blood Count 2.70 x10^6/uL (4.30-5.70) L Hemoglobin 8.5 g/dL (13.0-17.5) L Hematocrit 25.5 % (39.0-53.0) L Mean Corpuscular Volume 94 fL (79-100) Mean Corpuscular Hemoglobin 32 pg (25-35) Mean Corpuscular Hemoglobin Concent 33 g/dL (31-37) Red Cell Distribution Width 15.6 % (11.5-14.5) H Platelet Count 174 x10^3/uL (140-400) Sodium Level 135 mmol/L (136-145) L Potassium Level 4.5 mmol/L (3.5-5.1) Chloride Level 102 mmol/L (98-107) Carbon Dioxide Level 26 mmol/L (21-32) Anion Gap 7 (6-14) Blood Urea Nitrogen 21 mg/dL (8-26) Creatinine 0.9 mg/dL (0.7-1.3) Estimated GFR (Cockcroft-Gault) 80.8 BUN/Creatinine Ratio 23 (6-20) H Glucose Level 81 mg/dL (70-99) Calcium Level 9.3 mg/dL (8.5-10.1) Total Bilirubin 0.3 mg/dL (0.2-1.0) Aspartate Amino Transferase (AST) 19 U/L (15-37) Alanine Aminotransferase (ALT) 16 U/L (16-63) Alkaline Phosphatase 69 U/L (46-116) Total Protein 6.8 g/dL (6.4-8.2) Albumin 2.6 g/dL (3.4-5.0) L Albumin/Globulin Ratio 0.6 (1.0-1.7) L Current Medications: I have reviewed the current psychotropics carefully including drug interactions. Risk benefit ratio favors no change other than as noted in my dictated progress note. Diagnosis: Problems: (1) Impulse control disorder, unspecified (2) Anxiety disorder, unspecified (3) Dementia, vascular, with depression (4) Dementia, vascular, with delusions (5) History of alcohol dependence (6) Major neurocognitive disorder (7) Major neurocognitive disorder, due to vascular disease, with behavioral disturbance, mild TL SAMUEL MD Aug 22, 2020 07:22
[2020-08-22] MEDS: busPIRone 5 MG TABLET. PO SCH ×3 (08:44→20:28)
[2020-08-22] MEDS: FOLIC ACID 1 MG TABLET PO SCH (08:44)
[2020-08-22] MEDS: GABAPENTIN 100 MG CAPSULE. PO SCH ×3 (08:44→17:35)
[2020-08-22] MEDS: MAGNESIUM OXIDE 400 MG TABLET PO SCH ×3 (08:44→20:27)
[2020-08-22] MEDS: THIAMINE 100 MG TABLET. PO SCH (08:44)
[2020-08-22] MEDS: MULTIVITAMIN with MINERAL TABLET. PO SCH (08:44)
[2020-08-22 16:27] VITALS: BP 144/74
--- NOTE | 2020-08-22 20:49 | PDOC ---
Exam Note: [place]aurus Note: Please also refer to the separate dictated note~for this date of service dictated separately.~Patient seen individually. Discussed the patient with Nursing staff reviewed the chart.~Reviewed interim history and current functioning. Reviewed vital signs,~Labs/ Radiology~and current medications noted below. Continue current treatment with the changes noted in the dictated addendum note Assessment: Vital Signs/I&O: Vital Signs Date Time Temp Pulse Resp B/P (MAP) Pulse Ox O2 Delivery O2 Flow Rate FiO2 08/22/20 16:27 97.6 90 18 144/74 (97) 99 08/21/20 06:26 Room Air I & O 08/21/20 08/21/20 08/22/20 15:00 23:00 07:00 Intake Total 840 ml 480 ml 240 ml Balance 840 ml 480 ml 240 ml Labs: Laboratory Tests Test 08/22/20 06:07 White Blood Count 3.3 x10^3/uL (4.0-11.0) L Red Blood Count 2.70 x10^6/uL (4.30-5.70) L Hemoglobin 8.5 g/dL (13.0-17.5) L Hematocrit 25.5 % (39.0-53.0) L Mean Corpuscular Volume 94 fL (79-100) Mean Corpuscular Hemoglobin 32 pg (25-35) Mean Corpuscular Hemoglobin Concent 33 g/dL (31-37) Red Cell Distribution Width 15.6 % (11.5-14.5) H Platelet Count 174 x10^3/uL (140-400) Sodium Level 135 mmol/L (136-145) L Potassium Level 4.5 mmol/L (3.5-5.1) Chloride Level 102 mmol/L (98-107) Carbon Dioxide Level 26 mmol/L (21-32) Anion Gap 7 (6-14) Blood Urea Nitrogen 21 mg/dL (8-26) Creatinine 0.9 mg/dL (0.7-1.3) Estimated GFR (Cockcroft-Gault) 80.8 BUN/Creatinine Ratio 23 (6-20) H Glucose Level 81 mg/dL (70-99) Calcium Level 9.3 mg/dL (8.5-10.1) Total Bilirubin 0.3 mg/dL (0.2-1.0) Aspartate Amino Transferase (AST) 19 U/L (15-37) Alanine Aminotransferase (ALT) 16 U/L (16-63) Alkaline Phosphatase 69 U/L (46-116) Total Protein 6.8 g/dL (6.4-8.2) Albumin 2.6 g/dL (3.4-5.0) L Albumin/Globulin Ratio 0.6 (1.0-1.7) L Current Medications: I have reviewed the current psychotropics carefully including drug interactions. Risk benefit ratio favors no change other than as noted in my dictated progress note. Diagnosis: Problems: (1) Impulse control disorder, unspecified (2) Anxiety disorder, unspecified (3) Dementia, vascular, with depression (4) Dementia, vascular, with delusions (5) History of alcohol dependence (6) Major neurocognitive disorder (7) Major neurocognitive disorder, due to vascular disease, with behavioral disturbance, mild TL SAMUEL MD Aug 22, 2020 20:49
[2020-08-22] MEDS: traZODone 50 MG TABLET. PO PRN (21:53)
[2020-08-23 07:14] VITALS: BP 113/76
[2020-08-23] MEDS: THIAMINE 100 MG TABLET. PO SCH (09:59)
[2020-08-23] MEDS: MULTIVITAMIN with MINERAL TABLET. PO SCH (09:59)
[2020-08-23] MEDS: FOLIC ACID 1 MG TABLET PO SCH (09:59)
[2020-08-23] MEDS: GABAPENTIN 100 MG CAPSULE. PO SCH ×3 (09:59→17:20)
[2020-08-23] MEDS: MAGNESIUM OXIDE 400 MG TABLET PO SCH ×3 (09:59→20:04)
[2020-08-23 16:38] VITALS: BP 145/70
[2020-08-23] MEDS: traZODone 50 MG TABLET. PO PRN (20:04)
[2020-08-23] MEDS: busPIRone 5 MG TABLET. PO SCH (20:04)
--- NOTE | 2020-08-23 20:45 | PDOC ---
Exam Note: [place]urs[place] Note: Please also refer to the separate dictated note~for this date of service dictated separately.~Patient seen individually. Discussed the patient with Nursing staff reviewed the chart.~Reviewed interim history and current functioning. Reviewed vital signs,~Labs/ Radiology~and current medications noted below. Continue current treatment with the changes noted in the dictated addendum note Assessment: Vital Signs/I&O: Vital Signs Date Time Temp Pulse Resp B/P (MAP) Pulse Ox O2 Delivery O2 Flow Rate FiO2 08/23/20 16:38 98.0 62 20 145/70 (95) 97 08/21/20 06:26 Room Air I & O 08/22/20 08/22/20 08/23/20 14:59 22:59 06:59 Intake Total 685 ml 480 ml 240 ml Balance 685 ml 480 ml 240 ml Current Medications: I have reviewed the current psychotropics carefully including drug interactions. Risk benefit ratio favors no change other than as noted in my dictated progress note. Diagnosis: Problems: (1) Impulse control disorder, unspecified (2) Anxiety disorder, unspecified (3) Dementia, vascular, with depression (4) Dementia, vascular, with delusions (5) History of alcohol dependence (6) Major neurocognitive disorder (7) Major neurocognitive disorder, due to vascular disease, with behavioral disturbance, mild TL SAMUEL MD Aug 23, 2020 20:45
[2020-08-24] MEDS: traZODone 50 MG TABLET. PO PRN ×2 (00:59→19:37)
[2020-08-24 05:56] VITALS: BP 117/67
--- NOTE | 2020-08-24 07:08 | PDOC ---
Exam Note: [place] Note: This note is a late entry for 08/22/2020 covers elements not covered in my initial note. Subjective: The patient was seen face to face in the evening of 08/22/2020 with Maddy MOREL. Discussed with nursing staff, reviewed the chart. The patient slept 6-3/4 hours previous night. He has been singing, going around the unit in his wheelchair, oblivious of where he is. Review of Systems: Ambulation impaired. No CV, , pulmonary, eye, ENT system symptoms on review. Mental Status Exam: Oriented to himself. Insight and judgment, recent and remote memory, attention and concentration, fund of knowledge is poor consistent with his diagnoses. Laboratory Data: Reviewed. 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 Anxiety disorder unspecified. Impulse control disorder unspecified. Plan: No change from initial note. Assessment: Vital Signs/I&O: Vital Signs Date Time Temp Pulse Resp B/P (MAP) Pulse Ox O2 Delivery O2 Flow Rate FiO2 08/24/20 05:56 97.1 81 18 117/67 (84) 96 Room Air I & O 08/23/20 08/23/20 08/24/20 15:00 23:00 07:00 Intake Total 875 ml 360 ml 120 ml Balance 875 ml 360 ml 120 ml Current Medications: I have reviewed the current psychotropics carefully including drug interactions. Risk benefit ratio favors no change other than as noted in my dictated progress note. Diagnosis: Problems: (1) Acute necrotizing pancreatitis (2) Impulse control disorder, unspecified (3) Anxiety disorder, unspecified (4) Dementia, vascular, with depression (5) Dementia, vascular, with delusions (6) History of alcohol dependence (7) Major neurocognitive disorder (8) Major neurocognitive disorder, due to vascular disease, with behavioral disturbance, mild (9) Hypotension TL SAMUEL MD Aug 24, 2020 07:08
[2020-08-24] MEDS: GABAPENTIN 100 MG CAPSULE. PO SCH ×3 (07:51→17:06)
[2020-08-24] MEDS: FOLIC ACID 1 MG TABLET PO SCH (07:51)
[2020-08-24] MEDS: THIAMINE 100 MG TABLET. PO SCH (07:52)
[2020-08-24] MEDS: MAGNESIUM OXIDE 400 MG TABLET PO SCH ×3 (07:52→19:37)
[2020-08-24] MEDS: MULTIVITAMIN with MINERAL TABLET. PO SCH (07:52)
[2020-08-24] MEDS: busPIRone 5 MG TABLET. PO SCH ×2 (07:52→19:37)
[2020-08-24 16:42] VITALS: BP 149/76
[2020-08-24 20:00] VITALS: BP 159/79
--- NOTE | 2020-08-24 20:44 | PDOC ---
Exam Note: [place] Note: Please also refer to the separate dictated note~for this date of service dictated separately.~Patient seen individually. Discussed the patient with Nursing staff reviewed the chart.~Reviewed interim history and current functioning. Reviewed vital signs,~Labs/ Radiology~and current medications noted below. Continue current treatment with the changes noted in the dictated addendum note Assessment: Vital Signs/I&O: Vital Signs Date Time Temp Pulse Resp B/P (MAP) Pulse Ox O2 Delivery O2 Flow Rate FiO2 08/24/20 20:00 89 20 159/79 (105) 99 Room Air 08/24/20 16:42 96.8 I & O 08/23/20 08/23/20 08/24/20 14:59 22:59 06:59 Intake Total 875 ml 360 ml 120 ml Balance 875 ml 360 ml 120 ml Current Medications: I have reviewed the current psychotropics carefully including drug interactions. Risk benefit ratio favors no change other than as noted in my dictated progress note. Diagnosis: Problems: (1) Impulse control disorder, unspecified (2) Anxiety disorder, unspecified (3) Dementia, vascular, with depression (4) Dementia, vascular, with delusions (5) History of alcohol dependence (6) Major neurocognitive disorder, due to vascular disease, with behavioral disturbance, mild TL SAMUEL MD Aug 24, 2020 20:44
[2020-08-25 05:52] VITALS: BP 120/72
[2020-08-25 06:37] LABS: BASO % 1 % (0-3); EOS # 0.1 x10^3/uL (0.0-0.7); EOS % 5 % (0-3); HEMATOCRIT 23.5 % (39.0-53.0); HEMOGLOBIN 7.8 g/dL (13.0-17.5); LYMPH # 0.3 x10^3/uL (1.0-4.8); LYMPH % 11 % (24-48); MEAN CORPUSCULAR HEMOGLOBIN 31 pg (25-35); MEAN CORPUSCULAR HGB CONC 33 g/dL (31-37); MEAN CORPUSCULAR VOLUME 94 fL (79-100); MONO # 0.3 x10^3/uL (0.0-1.1); MONO % 12 % (0-9); NEUT # 1.9 x10^3uL (1.8-7.7); NEUT % 71 % (31-73); PLATELET COUNT 145 x10^3/uL (140-400); RED BLOOD COUNT 2.52 x10^6/uL (4.30-5.70); RED CELL DISTRIBUTION WIDTH 15.3 % (11.5-14.5); WHITE BLOOD COUNT 2.6 x10^3/uL (4.0-11.0)
[2020-08-25 06:57] LABS: ALBUMIN 2.2 g/dL (3.4-5.0); ALBUMIN/GLOBULIN RATIO 0.6 (1.0-1.7); CALCIUM 8.9 mg/dL (8.5-10.1); CREATININE 1.1 mg/dL (0.7-1.3); GFR 64.1; POTASSIUM 4.1 mmol/L (3.5-5.1); TOTAL BILIRUBIN 0.3 mg/dL (0.2-1.0); TOTAL PROTEIN 6.1 g/dL (6.4-8.2)
--- NOTE | 2020-08-25 09:01 | PDOC ---
Exam Note: [place] Note: This note is a late entry for 08/23/2020 covers elements not covered in my initial note. Subjective: The patient was seen face to face in the evening of 08/23/2020 with Franky MOREL. Discussed with nursing staff, reviewed the chart. The patient slept 5-3/4 hours previous night. He has been more pleasant, cooperative, goes around the unit singing, at times somewhat loud that can be intrusive but he redirects. He is compliant with his medications. Review of Systems: Ambulation impaired in wheelchair. No CV, , pulmonary, eye, ENT system symptoms on review. Mental Status Exam: Oriented to himself. He is pleasant, singing as I met with him, less sarcastic and dismissive. Insight and judgment, recent and remote memory, attention and concentration, fund of knowledge is poor consistent with his diagnoses. Laboratory Data: Reviewed. 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 Anxiety disorder unspecified. Impulse control disorder unspecified. Plan: No change from initial note. Assessment: Vital Signs/I&O: Vital Signs Date Time Temp Pulse Resp B/P (MAP) Pulse Ox O2 Delivery O2 Flow Rate FiO2 08/25/20 05:52 97.5 74 18 120/72 (88) 97 Room Air I & O 08/24/20 08/24/20 08/25/20 15:00 23:00 07:00 Intake Total 480 ml 360 ml Balance 480 ml 360 ml Labs: Laboratory Tests Test 08/25/20 06:25 White Blood Count 2.6 x10^3/uL (4.0-11.0) L Red Blood Count 2.52 x10^6/uL (4.30-5.70) L Hemoglobin 7.8 g/dL (13.0-17.5) L Hematocrit 23.5 % (39.0-53.0) L Mean Corpuscular Volume 94 fL (79-100) Mean Corpuscular Hemoglobin 31 pg (25-35) Mean Corpuscular Hemoglobin Concent 33 g/dL (31-37) Red Cell Distribution Width 15.3 % (11.5-14.5) H Platelet Count 145 x10^3/uL (140-400) Neutrophils (%) (Auto) 71 % (31-73) Lymphocytes (%) (Auto) 11 % (24-48) L Monocytes (%) (Auto) 12 % (0-9) H Eosinophils (%) (Auto) 5 % (0-3) H Basophils (%) (Auto) 1 % (0-3) Neutrophils # (Auto) 1.9 x10^3uL (1.8-7.7) Lymphocytes # (Auto) 0.3 x10^3/uL (1.0-4.8) L Monocytes # (Auto) 0.3 x10^3/uL (0.0-1.1) Eosinophils # (Auto) 0.1 x10^3/uL (0.0-0.7) Basophils # (Auto) 0.0 x10^3/uL (0.0-0.2) Sodium Level 138 mmol/L (136-145) Potassium Level 4.1 mmol/L (3.5-5.1) Chloride Level 105 mmol/L (98-107) Carbon Dioxide Level 26 mmol/L (21-32) Anion Gap 7 (6-14) Blood Urea Nitrogen 26 mg/dL (8-26) Creatinine 1.1 mg/dL (0.7-1.3) Estimated GFR (Cockcroft-Gault) 64.1 BUN/Creatinine Ratio 24 (6-20) H Glucose Level 76 mg/dL (70-99) Calcium Level 8.9 mg/dL (8.5-10.1) Total Bilirubin 0.3 mg/dL (0.2-1.0) Aspartate Amino Transferase (AST) 39 U/L (15-37) H Alanine Aminotransferase (ALT) 19 U/L (16-63) Alkaline Phosphatase 68 U/L (46-116) WC-Bfr-I-Type Natriuretic Peptide 1924 pg/mL (0-449) H Total Protein 6.1 g/dL (6.4-8.2) L Albumin 2.2 g/dL (3.4-5.0) L Albumin/Globulin Ratio 0.6 (1.0-1.7) L Current Medications: I have reviewed the current psychotropics carefully including drug interactions. Risk benefit ratio favors no change other than as noted in my dictated progress note. Diagnosis: Problems: (1) Impulse control disorder, unspecified (2) Anxiety disorder, unspecified (3) Dementia, vascular, with depression (4) Dementia, vascular, with delusions (5) History of alcohol dependence (6) Major neurocognitive disorder, due to vascular disease, with behavioral disturbance, mild TL SAMUEL MD Aug 25, 2020 09:01
--- NOTE | 2020-08-25 09:02 | PDOC ---
Exam Note: [place] Note: This note is a late entry for 08/24/2020 covers elements not covered in my initial note. Subjective: The patient was reviewed on telehealth rounds in the morning of 08/24/2020 for treatment team meeting with Alfredo (social media intern), Amanda, activity therapy, and Franky RN, because there was a patient who turned up positive for Covid-19 infection on the unit and the unit has been closed by the [facility] for any admissions or discharges once again. Discussed with nursing staff, reviewed the chart. The patients daughter Sara who is a teacher attended this conference as well. We had a lengthy discussion about his diagnoses, progress, improvement in his mood, the singing and he is here to redirect, less sarcastic. His sleep average is 7 hours. He slept 6 hours previous night. Appetite is fair, compliant with medications. Review of Systems: Ambulation impaired in wheelchair. No CV, , pulmonary, eye, ENT system symptoms on review. Mental Status Exam: Oriented to himself. Insight and judgment, recent and remote memory, attention and concentration, fund of knowledge is poor consistent with his diagnoses. Laboratory Data: Reviewed. 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 Anxiety disorder unspecified. Impulse control disorder unspecified. Plan: No change from initial note. If mood lability resurfaces, we may need to increase gabapentin for now. Continue rest unchanged. Assessment: Vital Signs/I&O: Vital Signs Date Time Temp Pulse Resp B/P (MAP) Pulse Ox O2 Delivery O2 Flow Rate FiO2 08/25/20 05:52 97.5 74 18 120/72 (88) 97 Room Air I & O 08/24/20 08/24/20 08/25/20 15:00 23:00 07:00 Intake Total 480 ml 360 ml Balance 480 ml 360 ml Labs: Laboratory Tests Test 08/25/20 06:25 White Blood Count 2.6 x10^3/uL (4.0-11.0) L Red Blood Count 2.52 x10^6/uL (4.30-5.70) L Hemoglobin 7.8 g/dL (13.0-17.5) L Hematocrit 23.5 % (39.0-53.0) L Mean Corpuscular Volume 94 fL (79-100) Mean Corpuscular Hemoglobin 31 pg (25-35) Mean Corpuscular Hemoglobin Concent 33 g/dL (31-37) Red Cell Distribution Width 15.3 % (11.5-14.5) H Platelet Count 145 x10^3/uL (140-400) Neutrophils (%) (Auto) 71 % (31-73) Lymphocytes (%) (Auto) 11 % (24-48) L Monocytes (%) (Auto) 12 % (0-9) H Eosinophils (%) (Auto) 5 % (0-3) H Basophils (%) (Auto) 1 % (0-3) Neutrophils # (Auto) 1.9 x10^3uL (1.8-7.7) Lymphocytes # (Auto) 0.3 x10^3/uL (1.0-4.8) L Monocytes # (Auto) 0.3 x10^3/uL (0.0-1.1) Eosinophils # (Auto) 0.1 x10^3/uL (0.0-0.7) Basophils # (Auto) 0.0 x10^3/uL (0.0-0.2) Sodium Level 138 mmol/L (136-145) Potassium Level 4.1 mmol/L (3.5-5.1) Chloride Level 105 mmol/L (98-107) Carbon Dioxide Level 26 mmol/L (21-32) Anion Gap 7 (6-14) Blood Urea Nitrogen 26 mg/dL (8-26) Creatinine 1.1 mg/dL (0.7-1.3) Estimated GFR (Cockcroft-Gault) 64.1 BUN/Creatinine Ratio 24 (6-20) H Glucose Level 76 mg/dL (70-99) Calcium Level 8.9 mg/dL (8.5-10.1) Total Bilirubin 0.3 mg/dL (0.2-1.0) Aspartate Amino Transferase (AST) 39 U/L (15-37) H Alanine Aminotransferase (ALT) 19 U/L (16-63) Alkaline Phosphatase 68 U/L (46-116) LU-Nhx-U-Type Natriuretic Peptide 1924 pg/mL (0-449) H Total Protein 6.1 g/dL (6.4-8.2) L Albumin 2.2 g/dL (3.4-5.0) L Albumin/Globulin Ratio 0.6 (1.0-1.7) L Current Medications: I have reviewed the current psychotropics carefully including drug interactions. Risk benefit ratio favors no change other than as noted in my dictated progress note. Diagnosis: Problems: (1) Impulse control disorder, unspecified (2) Anxiety disorder, unspecified (3) Dementia, vascular, with depression (4) Dementia, vascular, with delusions (5) History of alcohol dependence (6) Major neurocognitive disorder, due to vascular disease, with behavioral disturbance, mild TL SAMUEL MD Aug 25, 2020 09:02
[2020-08-25] MEDS: GABAPENTIN 100 MG CAPSULE. PO SCH ×3 (09:08→17:13)
[2020-08-25] MEDS: busPIRone 5 MG TABLET. PO SCH ×2 (09:08→20:08)
[2020-08-25] MEDS: MULTIVITAMIN with MINERAL TABLET. PO SCH (09:08)
[2020-08-25] MEDS: FOLIC ACID 1 MG TABLET PO SCH (09:08)
[2020-08-25] MEDS: MAGNESIUM OXIDE 400 MG TABLET PO SCH ×3 (09:08→20:08)
[2020-08-25] MEDS: THIAMINE 100 MG TABLET. PO SCH (09:08)
[2020-08-25] MEDS ORDERED: FUROSEMIDE 80 MG TABLET PO ONE (13:00)
[2020-08-25 15:54] VITALS: BP 137/88
--- NOTE | 2020-08-25 18:59 | TX PLAN ---
Interdisciplinary Tx Plan Admission Information Aug 09, 2020 at 10:55 Legal Status (on Admission): Voluntary DPOA/Guardian Name: Saranya Roberts Contact Other Contact Name: [facility] Verified Code Status: DNR Allergies: Coded Allergies: No Known Drug Allergies (Unverified , 05/27/20) Diagnoses Primary Diagnosis: Major Neurocognitive D/O , vascular Alzheimers with delusions, depression, B/D Reasons for Admission: Hallucinations, Combative, Poor impulse control Problem in Patient's Words: N/A Additional Admission Comments: According to the intake, pt was on ICU being combative with cares, restless, attempting to get out of bed, delusional -- thinks he needs to get on a plane and worried he'll miss his flight. Problems Active Problems: delusional restless Inactive Problems: Medication compliant crushed Pt Strengths/Limitations Ability for [place]: Poor Cognitive Functioning/Ability: Poor Communication Skills/Ability: Fair Financial Resources: Fair Insight/Judgement: Poor Intellectual Ability: Poor Physical Health: Poor Social Skills: Fair Stability in Family: Good Stability in School/Work: Poor Verbal Skills: Fair Discharge Criteria Discharge Criteria: No need for close observ., Adequate arrangements @DC, Improved behavior, Improved mood/thought Preliminary Discharge Plan Preliminary DC Plan: Placement Needed Special Precautions Fall Risk: Moderate Initial D/C Plan Pt will need placement in LTC Identified Discharge Needs: Referrals for a higher level of care Currently Utilized Resources Currently Utilized Resources/P: Primary Care Physician Referrals Community Resources: Placement to LTC Identified Problems/Hx/Goals Objectives/Short-Term Goals Short Term Goals: Dec. Aggression, Dec. Outbursts, Medication Stabilization, Monitor Med Effects, Promote Coping Skill Short Term Goals in Patient's: NA Interventions/Frequency Staff Interventions/Frequency&: Psychiatrist to assess pt at least 3x per week for medication mgmt. Social Work to assess pt at least 2x per week for dishcarge planning and barrier potentials. Nursing to assess medications, manage behaviors and complete 15 minute checks daily. 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 Education: Pt has his Master in Education Community Follow-up Primary care physician Treatment Plan Explained Patient/Court Advocate had this treatment plan explained to him/her as indicated by the signature below and has been given the opportunity to ask questions and make suggestions: Date: Patient/Court Advocate Signature: Status Update Update Pt is eating 75-100% of meals and sleeping on average 7 hours per night. Pt is at times resistive to medications and showers but can be convinced to have both. Pt can be sarcastic but enjoys talking to staff and at time other peers. Pt has moments of delusions; however, is able to be redirected and can be found taking laps in his wheelchair and singing. Pt dtr participated in treatment t iain via phone. Pt will plan to discharge [facility] A once placement for pt can be found. TAMMIE DEY Aug 25, 2020 18:59
[2020-08-25] MEDS: traZODone 50 MG TABLET. PO PRN (20:08)
--- NOTE | 2020-08-25 20:54 | PDOC ---
Exam Note: [place] Note: Please also refer to the separate dictated note~for this date of service dictated separately.~Patient seen individually. Discussed the patient with Nursing staff reviewed the chart.~Reviewed interim history and current functioning. Reviewed vital signs,~Labs/ Radiology~and current medications noted below. Continue current treatment with the changes noted in the dictated addendum note Assessment: Vital Signs/I&O: Vital Signs Date Time Temp Pulse Resp B/P (MAP) Pulse Ox O2 Delivery O2 Flow Rate FiO2 08/25/20 15:54 97.6 86 20 137/88 (104) 99 Room Air I & O 08/24/20 08/24/20 08/25/20 15:00 23:00 07:00 Intake Total 480 ml 360 ml Balance 480 ml 360 ml Labs: Laboratory Tests Test 08/25/20 06:25 White Blood Count 2.6 x10^3/uL (4.0-11.0) L Red Blood Count 2.52 x10^6/uL (4.30-5.70) L Hemoglobin 7.8 g/dL (13.0-17.5) L Hematocrit 23.5 % (39.0-53.0) L Mean Corpuscular Volume 94 fL (79-100) Mean Corpuscular Hemoglobin 31 pg (25-35) Mean Corpuscular Hemoglobin Concent 33 g/dL (31-37) Red Cell Distribution Width 15.3 % (11.5-14.5) H Platelet Count 145 x10^3/uL (140-400) Neutrophils (%) (Auto) 71 % (31-73) Lymphocytes (%) (Auto) 11 % (24-48) L Monocytes (%) (Auto) 12 % (0-9) H Eosinophils (%) (Auto) 5 % (0-3) H Basophils (%) (Auto) 1 % (0-3) Neutrophils # (Auto) 1.9 x10^3uL (1.8-7.7) Lymphocytes # (Auto) 0.3 x10^3/uL (1.0-4.8) L Monocytes # (Auto) 0.3 x10^3/uL (0.0-1.1) Eosinophils # (Auto) 0.1 x10^3/uL (0.0-0.7) Basophils # (Auto) 0.0 x10^3/uL (0.0-0.2) Sodium Level 138 mmol/L (136-145) Potassium Level 4.1 mmol/L (3.5-5.1) Chloride Level 105 mmol/L (98-107) Carbon Dioxide Level 26 mmol/L (21-32) Anion Gap 7 (6-14) Blood Urea Nitrogen 26 mg/dL (8-26) Creatinine 1.1 mg/dL (0.7-1.3) Estimated GFR (Cockcroft-Gault) 64.1 BUN/Creatinine Ratio 24 (6-20) H Glucose Level 76 mg/dL (70-99) Calcium Level 8.9 mg/dL (8.5-10.1) Total Bilirubin 0.3 mg/dL (0.2-1.0) Aspartate Amino Transferase (AST) 39 U/L (15-37) H Alanine Aminotransferase (ALT) 19 U/L (16-63) Alkaline Phosphatase 68 U/L (46-116) MN-Qan-M-Type Natriuretic Peptide 1924 pg/mL (0-449) H Total Protein 6.1 g/dL (6.4-8.2) L Albumin 2.2 g/dL (3.4-5.0) L Albumin/Globulin Ratio 0.6 (1.0-1.7) L Current Medications: Meds: Current Medications Medications (Trade) Dose Ordered Sig/Lit Route PRN Reason Start Time Stop Time Status Last Admin Dose Admin Furosemide (Lasix) 80 mg 1X ONCE PO 08/25/20 13:00 08/25/20 13:02 DC 08/25/20 14:05 I have reviewed the current psychotropics carefully including drug interactions. Risk benefit ratio favors no change other than as noted in my dictated progress note. Diagnosis: Problems: (1) Impulse control disorder, unspecified (2) Anxiety disorder, unspecified (3) Dementia, vascular, with depression (4) Dementia, vascular, with delusions (5) History of alcohol dependence (6) Major neurocognitive disorder (7) Major neurocognitive disorder, due to vascular disease, with behavioral disturbance, mild TL SAMUEL MD Aug 25, 2020 20:54
[2020-08-26 06:31] VITALS: BP 116/64
[2020-08-26] MEDS: busPIRone 5 MG TABLET. PO SCH ×2 (10:22→20:34)
[2020-08-26] MEDS: FOLIC ACID 1 MG TABLET PO SCH (10:22)
[2020-08-26] MEDS: GABAPENTIN 100 MG CAPSULE. PO SCH ×3 (10:23→17:05)
[2020-08-26] MEDS: THIAMINE 100 MG TABLET. PO SCH (10:23)
[2020-08-26] MEDS: MULTIVITAMIN with MINERAL TABLET. PO SCH (10:23)
[2020-08-26] MEDS: MAGNESIUM OXIDE 400 MG TABLET PO SCH ×3 (10:23→20:34)
[2020-08-26 15:00] VITALS: BP 121/72
[2020-08-26] MEDS: traZODone 50 MG TABLET. PO PRN (20:34)
--- NOTE | 2020-08-26 21:02 | PDOC ---
Exam Note: [place] Note: Please also refer to the separate dictated note~for this date of service dictated separately.~Patient seen individually. Discussed the patient with Nursing staff reviewed the chart.~Reviewed interim history and current functioning. Reviewed vital signs,~Labs/ Radiology~and current medications noted below. Continue current treatment with the changes noted in the dictated addendum note Assessment: Vital Signs/I&O: Vital Signs Date Time Temp Pulse Resp B/P (MAP) Pulse Ox O2 Delivery O2 Flow Rate FiO2 08/26/20 15:00 97.9 60 20 121/72 (88) 98 Room Air I & O 08/25/20 08/25/20 08/26/20 15:00 23:00 07:00 Intake Total 840 ml 720 ml Balance 840 ml 720 ml Current Medications: I have reviewed the current psychotropics carefully including drug interactions. Risk benefit ratio favors no change other than as noted in my dictated progress note. Diagnosis: Problems: (1) Impulse control disorder, unspecified (2) Anxiety disorder, unspecified (3) Dementia, vascular, with depression (4) Dementia, vascular, with delusions (5) History of alcohol dependence (6) Major neurocognitive disorder, due to vascular disease, with behavioral disturbance, mild TL SAMUEL MD Aug 26, 2020 21:02
[2020-08-27 05:45] VITALS: BP 131/70
[2020-08-27] MEDS: busPIRone 5 MG TABLET. PO SCH ×2 (09:53→20:13)
[2020-08-27] MEDS: THIAMINE 100 MG TABLET. PO SCH (09:54)
[2020-08-27] MEDS: FOLIC ACID 1 MG TABLET PO SCH (09:54)
[2020-08-27] MEDS: GABAPENTIN 100 MG CAPSULE. PO SCH ×3 (09:54→17:18)
[2020-08-27] MEDS: MAGNESIUM OXIDE 400 MG TABLET PO SCH ×3 (09:54→20:13)
[2020-08-27] MEDS: MULTIVITAMIN with MINERAL TABLET. PO SCH (09:54)
[2020-08-27 16:17] VITALS: BP 122/77
[2020-08-27] MEDS: traZODone 50 MG TABLET. PO PRN (20:13)
--- NOTE | 2020-08-27 20:58 | PDOC ---
Exam Note: [place] Note: This note is a late entry for 08/25/2020 covers elements not covered in my initial note. Subjective: The patient was reviewed on telehealth rounds in the evening of 08/25/2020 with Franky MOREL. Discussed with nursing staff, reviewed the chart. The patient slept 6 hours previous night. He was resistive to meds and to shower. He does have increased edema. He was given Lasix x1. He has been singing somewhat loudly, intrusively again where is the ice-cream. He does go to his room for meals. Review of Systems: Ambulation impaired in wheelchair. No CV, , pulmonary, eye, ENT system symptoms on review. Reliability poor. Mental Status Exam: Oriented to himself. Insight and judgment, recent and remote memory, attention and concentration, fund of knowledge is poor consistent with his diagnoses. Laboratory Data: Reviewed. 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 Anxiety disorder unspecified. Impulse control disorder unspecified. Plan: No change from initial note. Assessment: Vital Signs/I&O: Vital Signs Date Time Temp Pulse Resp B/P (MAP) Pulse Ox O2 Delivery O2 Flow Rate FiO2 08/27/20 16:17 97.2 83 18 122/77 (92) 96 08/26/20 15:00 Room Air I & O 0 08/26/20 08/26/20 08/27/20 15:00 23:00 07:00 Intake Total 840 ml 360 ml Balance 840 ml 360 ml Current Medications: I have reviewed the current psychotropics carefully including drug interactions. Risk benefit ratio favors no change other than as noted in my dictated progress note. Diagnosis: Problems: (1) Impulse control disorder, unspecified (2) Anxiety disorder, unspecified (3) Dementia, vascular, with depression (4) Dementia, vascular, with delusions (5) History of alcohol dependence (6) Major neurocognitive disorder, due to vascular disease, with behavioral disturbance, mild TL SAMUEL MD Aug 27, 2020 20:58
--- NOTE | 2020-08-27 21:12 | PDOC ---
Exam Note: [place] Note: This note is a late entry for 08/26/2020 covers elements not covered in my initial note. Subjective: The patient was reviewed on telehealth rounds in the evening of 08/26/2020 with Wendy MOREL. Discussed with nursing staff, reviewed the chart. He slept 5-3/4 hours. He did well previous night and during the day today. At times he is sarcastic, especially with female staff members, seems to relate better to males. Review of Systems: Ambulation impaired in wheelchair. No CV, , pulmonary, eye, ENT system symptoms on review. Mental Status Exam: Oriented to himself. Insight and judgment, recent and remote memory, attention and concentration, fund of knowledge is poor consistent with his diagnoses. Laboratory Data: Reviewed. 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 Anxiety disorder unspecified. Impulse control disorder unspecified. Plan: We will adjust psychotropics further as clinically indicated. Assessment: Vital Signs/I&O: Vital Signs Date Time Temp Pulse Resp B/P (MAP) Pulse Ox O2 Delivery O2 Flow Rate FiO2 08/27/20 16:17 97.2 83 18 122/77 (92) 96 08/26/20 15:00 Room Air I & O 08/26/20 08/26/20 08/27/20 15:00 23:00 07:00 Intake Total 840 ml 360 ml Balance 840 ml 360 ml Current Medications: I have reviewed the current psychotropics carefully including drug interactions. Risk benefit ratio favors no change other than as noted in my dictated progress note. Diagnosis: Problems: (1) Impulse control disorder, unspecified (2) Anxiety disorder, unspecified (3) Dementia, vascular, with depression (4) Dementia, vascular, with delusions (5) History of alcohol dependence (6) Major neurocognitive disorder (7) Major neurocognitive disorder, due to vascular disease, with behavioral disturbance, mild TL SAMUEL MD Aug 27, 2020 21:12
--- NOTE | 2020-08-27 21:24 | PDOC ---
Exam Note: [place] Note: Please also refer to the separate dictated note~for this date of service dictated separately.~Patient seen individually. Discussed the patient with Nursing staff reviewed the chart.~Reviewed interim history and current functioning. Reviewed vital signs,~Labs/ Radiology~and current medications noted below. Continue current treatment with the changes noted in the dictated addendum note Assessment: Vital Signs/I&O: Vital Signs Date Time Temp Pulse Resp B/P (MAP) Pulse Ox O2 Delivery O2 Flow Rate FiO2 08/27/20 16:17 97.2 83 18 122/77 (92) 96 08/26/20 15:00 Room Air I & O 08/26/20 08/26/20 08/27/20 15:00 23:00 07:00 Intake Total 840 ml 360 ml Balance 840 ml 360 ml Current Medications: I have reviewed the current psychotropics carefully including drug interactions. Risk benefit ratio favors no change other than as noted in my dictated progress note. Diagnosis: Problems: (1) Impulse control disorder, unspecified (2) Anxiety disorder, unspecified (3) Dementia, vascular, with depression (4) Dementia, vascular, with delusions (5) History of alcohol dependence (6) Major neurocognitive disorder (7) Major neurocognitive disorder, due to vascular disease, with behavioral disturbance, mild TL SAMUEL MD Aug 27, 2020 21:24
[2020-08-28 06:05] VITALS: BP 135/72
[2020-08-28] MEDS: MAGNESIUM OXIDE 400 MG TABLET PO SCH ×3 (08:16→19:55)
[2020-08-28] MEDS: busPIRone 5 MG TABLET. PO SCH ×2 (08:16→19:55)
[2020-08-28] MEDS: GABAPENTIN 100 MG CAPSULE. PO SCH ×3 (08:16→19:55)
[2020-08-28] MEDS: THIAMINE 100 MG TABLET. PO SCH (08:16)
[2020-08-28] MEDS: MULTIVITAMIN with MINERAL TABLET. PO SCH (08:16)
[2020-08-28] MEDS: FOLIC ACID 1 MG TABLET PO SCH (08:16)
[2020-08-28 16:02] VITALS: BP 152/81
[2020-08-28] MEDS ORDERED: GABAPENTIN 100 MG CAPSULE. PO SCH (16:45)
--- NOTE | 2020-08-28 20:45 | PDOC ---
Exam Note: [place] Note: Please also refer to the separate dictated note~for this date of service dictated separately.~Patient seen individually. Discussed the patient with Nursing staff reviewed the chart.~Reviewed interim history and current functioning. Reviewed vital signs,~Labs/ Radiology~and current medications noted below. Continue current treatment with the changes noted in the dictated addendum note Assessment: Vital Signs/I&O: Vital Signs Date Time Temp Pulse Resp B/P (MAP) Pulse Ox O2 Delivery O2 Flow Rate FiO2 08/28/20 16:02 98.0 90 18 152/81 (104) 96 08/26/20 15:00 Room Air I & O 08/27/20 08/27/20 08/28/20 15:00 23:00 07:00 Intake Total 720 ml 320 ml Balance 720 ml 320 ml Current Medications: Meds: Current Medications Medications (Trade) Dose Ordered Sig/Lit Route PRN Reason Start Time Stop Time Status Last Admin Dose Admin Gabapentin (Neurontin) 100 mg BID PO 08/28/20 16:45 08/28/20 17:06 DC 08/28/20 16:45 Gabapentin (Neurontin) 100 mg 1300,1700 PO 08/28/20 17:15 08/28/20 19:55 I have reviewed the current psychotropics carefully including drug interactions. Risk benefit ratio favors no change other than as noted in my dictated progress note. Diagnosis: Problems: (1) Impulse control disorder, unspecified (2) Anxiety disorder, unspecified (3) Dementia, vascular, with depression (4) Dementia, vascular, with delusions (5) History of alcohol dependence (6) Major neurocognitive disorder (7) Major neurocognitive disorder, due to vascular disease, with behavioral di sturbance, mild TL SAMUEL MD Aug 28, 2020 20:45
[2020-08-29 06:20] VITALS: BP 110/60
--- NOTE | 2020-08-29 07:48 | PDOC ---
Exam Note: [place] Note: This note is a late entry for 08/27/2020 covers elements not covered in my initial note. Subjective: The patient was reviewed on telehealth rounds in the evening of 08/27/2020 with Corby MOREL. Discussed with Wendy MOREL, reviewed the chart. He slept 7-1/4 hours. He has been singing less on the unit, less intrusive, little irritable at the end of the visit. Review of Systems: Ambulation with walker. No CV, , pulmonary, eye, ENT syst em symptoms on review. Mental Status Exam: Oriented to himself. He is pleasant, cooperative. I met with him in his room. He is still asking about discharge plans. I addressed with him. Insight and judgment, recent and remote memory, attention and co ncentration, fund of knowledge is poor consistent with his diagnoses. No suicidal or homicidal ideation. He does have some short-term memory deficits but was aware of where he was. Laboratory Data: Reviewed. 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 Anxiety disorder unspecified. Impulse control disorder unspecified. Plan: No change from initial note. Assessment: Vital Signs/I&O: Vital Signs Date Time Temp Pulse Resp B/P (MAP) Pulse Ox O2 Delivery O2 Flow Rate FiO2 08/29/20 06:20 97.5 80 20 110/60 (77) 99 08/26/20 15:00 Room Air I & O 08/28/20 08/28/20 08/29/20 15:00 23:00 07:00 Intake Total 1200 ml 600 ml Balance 1200 ml 600 ml Current Medications: Meds: Current Medications Medications (Trade) Dose Ordered Sig/Lit Route PRN Reason Start Time Stop Time Status Last Admin Dose Admin Gabapentin (Neurontin) 100 mg BID PO 08/28/20 16:45 08/28/20 17:06 DC 08/28/20 16:45 Gabapentin (Neurontin) 100 mg 1300,1700 PO 08/28/20 17:15 08/28/20 19:55 I have reviewed the current psychotropics carefully including drug interactions. Risk benefit ratio favors no change other than as noted in my dictated progress note. Diagnosis: Problems: (1) Impulse control disorder, unspecified (2) Anxiety disorder, unspecified (3) Dementia, vascular, with depression (4) Dementia, vascular, with delusions (5) History of alcohol dependence (6) Major neurocognitive disorder (7) Major neurocognitive disorder, due to vascular disease, with behavioral disturbance, mild TL SAMUEL MD Aug 29, 2020 07:48
--- NOTE | 2020-08-29 08:05 | PDOC ---
Exam Note: [place] Note: This note is a late entry for 08/28/2020 covers elements not covered in my initial note. Subjective: The patient was seen face to face in the evening of 08/28/2020 with Della MOREL. Discussed with nursing staff, reviewed the chart. He slept 7-3/4 hours. The patient is somewhat irritable, cranky at times, less singing and less intrusive. I met with him in his room. Review of Systems: Ambulation impaired in wheelchair. No CV, , pulmonary, eye, ENT system symptoms on review. Mental Status Exam: Oriented to himself. Insight and judgment, recent and remote memory, attention and concentration, fund of knowledge is poor consistent with his diagnoses. The patient is little less sarcastic, irritable, though he can get somewhat snappy at times. Speech has some latency. Memory is impaired. He was asking about his daughter Sara after I brought it up with him. He was unaware of where she is but suddenly recognized the name. Laboratory Data: Reviewed. 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 Anxiety disorder unspecified. Impulse control disorder unspecified. Plan: The patient has been little more anxious, irritable. We will increase the gabapentin from 100 mg t.i.d. to 200 mg a.m. and 100 mg b.i.d. Rest unchanged for now. Assessment: Vital Signs/I&O: Vital Signs Date Time Temp Pulse Resp B/P (MAP) Pulse Ox O2 Delivery O2 Flow Rate FiO2 08/29/20 06:20 97.5 80 20 110/60 (77) 99 08/26/20 15:00 Room Air I & O0 08/28/20 08/28/20 08/29/20 15:00 23:00 07:00 Intake Total 1200 ml 600 ml Balance 1200 ml 600 ml Current Medications: Meds: Current Medications Medications (Trade) Dose Ordered Sig/Lit Route PRN Reason Start Time Stop Time Status Last Admin Dose Admin Gabapentin (Neurontin) 100 mg BID PO 08/28/20 16:45 08/28/20 17:06 DC 08/28/20 16:45 Gabapentin (Neurontin) 100 mg 1300,1700 PO 08/28/20 17:15 08/28/20 19:55 I have reviewed the current psychotropics carefully including drug interactions. Risk benefit ratio favors no change other than as noted in my dictated progress note. Diagnosis: Problems: (1) Impulse control disorder, unspecified (2) Anxiety disorder, unspecified (3) Dementia, vascular, with depression (4) Dementia, vascular, with delusions (5) History of alcohol dependence (6) Major neurocognitive disorder, due to vascular disease, with behavioral dist urbance, mild TL SAMUEL MD Aug 29, 2020 08:05
[2020-08-29] MEDS: MAGNESIUM OXIDE 400 MG TABLET PO SCH ×3 (08:41→20:31)
[2020-08-29] MEDS: MULTIVITAMIN with MINERAL TABLET. PO SCH (08:41)
[2020-08-29] MEDS: busPIRone 5 MG TABLET. PO SCH ×2 (08:41→20:31)
[2020-08-29] MEDS: FOLIC ACID 1 MG TABLET PO SCH (08:41)
[2020-08-29] MEDS: THIAMINE 100 MG TABLET. PO SCH (08:41)
[2020-08-29] MEDS ORDERED: GABAPENTIN 100 MG CAPSULE. PO SCH (09:00)
[2020-08-29] MEDS: GABAPENTIN 100 MG CAPSULE. PO SCH ×2 (13:18→17:22)
[2020-08-29 15:38] VITALS: BP 114/66
--- NOTE | 2020-08-29 21:00 | PDOC ---
Exam Note: [place] Note: Please also refer to the separate dictated note~for this date of service dictated separately.~Patient seen individually. Discussed the patient with Nursing staff reviewed the chart.~Reviewed interim history and current functioning. Reviewed vital signs,~Labs/ Radiology~and current medications noted below. Continue current treatment with the changes noted in the dictated addendum note Assessment: Vital Signs/I&O: Vital Signs Date Time Temp Pulse Resp B/P (MAP) Pulse Ox O2 Delivery O2 Flow Rate FiO2 08/29/20 15:38 98.2 85 19 114/66 (82) 93 08/26/20 15:00 Room Air I & O 08/28/20 08/28/20 08/29/20 15:00 23:00 07:00 Intake Total 1200 ml 600 ml Balance 1200 ml 600 ml Current Medications: Meds: Current Medications Medications (Trade) Dose Ordered Sig/Lit Route PRN Reason Start Time Stop Time Status Last Admin Dose Admin Gabapentin (Neurontin) 200 mg DAILY PO 08/29/20 09:00 08/29/20 18:48 DC 08/29/20 08:42 I have reviewed the current psychotropics carefully including drug interactions. Risk benefit ratio favors no change other than as noted in my dictated progress note. Diagnosis: Problems: (1) Impulse control disorder, unspecified (2) Anxiety disorder, unspecified (3) Dementia, vascular, with depression (4) Dementia, vascular, with delusions (5) History of alcohol dependence (6) Major neurocognitive disorder (7) Major neurocognitive disorder, due to vascular disease, with behavioral disturbance, mild TL SAMUEL MD Aug 29, 2020 21:00
[2020-08-30] MEDS: busPIRone 5 MG TABLET. PO SCH ×2 (06:28→20:34)
[2020-08-30] MEDS: FOLIC ACID 1 MG TABLET PO SCH (06:29)
[2020-08-30] MEDS: MULTIVITAMIN with MINERAL TABLET. PO SCH (06:29)
[2020-08-30] MEDS: MAGNESIUM OXIDE 400 MG TABLET PO SCH ×3 (06:29→20:34)
[2020-08-30] MEDS: THIAMINE 100 MG TABLET. PO SCH (06:29)
[2020-08-30 06:34] VITALS: BP 121/80
[2020-08-30] MEDS: GABAPENTIN 100 MG CAPSULE. PO SCH ×4 (09:47→20:36)
[2020-08-30 15:26] VITALS: BP 145/83
--- NOTE | 2020-08-30 20:57 | PDOC ---
Exam Note: [place] Note: Please also refer to the separate dictated note~for this date of service dictated separately.~Patient seen individually. Discussed the patient with Nursing staff reviewed the chart.~Reviewed interim history and current functioning. Reviewed vital signs,~Labs/ Radiology~and current medications noted below. Continue current treatment with the changes noted in the dictated addendum note Assessment: Vital Signs/I&O: Vital Signs Date Time Temp Pulse Resp B/P (MAP) Pulse Ox O2 Delivery O2 Flow Rate FiO2 08/30/20 15:26 98.1 89 20 145/83 (103) 100 Room Air I & O 08/29/20 08/29/20 08/30/20 15:00 23:00 07:00 Intake Total 480 ml 600 ml Balance 480 ml 600 ml Current Medications: Meds: Current Medications Medications (Trade) Dose Ordered Sig/Lit Route PRN Reason Start Time Stop Time Status Last Admin Dose Admin Gabapentin (Neurontin) 100 mg 1300 PO 08/30/20 13:00 08/30/20 13:50 Gabapentin (Neurontin) 200 mg 0900,1700 PO 08/30/20 09:00 08/30/20 17:06 Gabapentin (Neurontin) 200 mg TID PO 08/30/20 21:00 08/30/20 20:36 I have reviewed the current psychotropics carefully including drug interactions. Risk benefit ratio favors no change other than as noted in my dictated progress note. Diagnosis: Problems: (1) Impulse control disorder, unspecified (2) Anxiety disorder, unspecified (3) Dementia, vascular, with depression (4) Dementia, vascular, with delusions (5) History of alcohol dependence (6) Major neurocognitive disorder (7) Major neurocognitive disorder, due to vascular disease, with behavioral disturbance, mild TL SAMUEL MD Aug 30, 2020 20:57
[2020-08-31 04:35] VITALS: BP 135/82
[2020-08-31] MEDS: busPIRone 5 MG TABLET. PO SCH ×2 (07:14→21:22)
[2020-08-31] MEDS: MULTIVITAMIN with MINERAL TABLET. PO SCH ×2 (07:15→09:00)
[2020-08-31] MEDS: THIAMINE 100 MG TABLET. PO SCH ×2 (07:15→09:00)
[2020-08-31] MEDS: MAGNESIUM OXIDE 400 MG TABLET PO SCH ×4 (07:15→21:22)
[2020-08-31] MEDS: GABAPENTIN 100 MG CAPSULE. PO SCH ×6 (07:15→21:22)
[2020-08-31] MEDS: FOLIC ACID 1 MG TABLET PO SCH ×2 (07:15→09:00)
--- NOTE | 2020-08-31 07:57 | PDOC ---
Exam Note: [place] Note: This note is a late entry for 08/29/2020 covers elements not covered in my initial note. Subjective: The patient was seen face to face in the evening of 08/29/2020 with Franky MOREL. Discussed with nursing staff, reviewed the chart. He slept 6-1/4 hours. The patient has been irritable during the day. Previous evening he was cooperative. During the day today on 08/29, he was arguing at times. Review of Systems: Ambulation impaired in wheelchair. No CV, , pulmonary, eye, ENT system symptoms on review. Mental Status Exam: Oriented to himself. He has been somewhat irritable as I met with him individually evening of 08/29. No suicidal or homicidal ideation. We talked about his daughter. He was unaware of where she lives but did remember she is a teacher, little more animated during this conversation with me. Laboratory Data: Reviewed. 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 Anxiety disorder unspecified. Impulse control disorder unspecified. Plan: The patient is currently on gabapentin 200mg a.m. and 100 mg at 1300 and 1700. We will increase the 1700 dosage to 200 mg. Continue BuSpar along with Zyprexa p.r.n., trazodone p.r.n. Rest unchanged for now. Assessment: Vital Signs/I&O: Vital Signs Date Time Temp Pulse Resp B/P (MAP) Pulse Ox O2 Delivery O2 Flow Rate FiO2 08/31/20 04:35 97.4 74 20 135/82 (99) 100 Room Air I & O 08/30/20 08/30/20 08/31/20 14:59 22:59 06:59 Intake Total 720 ml 360 ml Balance 720 ml 360 ml Current Medications: Meds: Current Medications Medications (Trade) Dose Ordered Sig/Lit Route PRN Reason Start Time Stop Time Status Last Admin Dose Admin Gabapentin (Neurontin) 100 mg 1300 PO 08/30/20 13:00 08/30/20 13:50 Gabapentin (Neurontin) 200 mg 0900,1700 PO 08/30/20 09:00 08/30/20 17:06 Gabapentin (Neurontin) 200 mg TID PO 08/30/20 21:00 08/30/20 20:36 I have reviewed the current psychotropics carefully including drug interactions. Risk benefit ratio favors no change other than as noted in my dictated progress note. Diagnosis: Problems: (1) Impulse control disorder, unspecified (2) Anxiety disorder, unspecified (3) Dementia, vascular, with depression (4) Dementia, vascular, with delusions (5) History of alcohol dependence (6) Major neurocognitive disorder (7) Major neurocognitive disorder, due to vascular disease, with behavioral disturbance, mild TL SAMUEL MD Aug 31, 2020 07:57
--- NOTE | 2020-08-31 08:13 | PDOC ---
Exam Note: [place] Note: This note is a late entry for 08/30/2020 covers elements not covered in my initial note. Subjective: The patient was seen face to face in the evening of 08/30/2020 with Della MOREL. Discussed with nursing staff, reviewed the chart. He slept 6-1/5 hours. The patient has been little more irritable, anxious, less singing. He tends to isolate in his room. He is compliant with medications sarcastic. Review of Systems: Ambulation impaired in wheelchair. No CV, , pulmonary, eye, ENT system symptoms on review. Mental Status Exam: Oriented to himself. Insight and judgment, recent and remote memory, attention and concentration, fund of knowledge is poor consistent with his diagnoses. Laboratory Data: Reviewed. 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 Anxiety disorder unspecified. Impulse control disorder unspecified. Plan: The patient is currently on gabapentin 200 mg b.i.d. and 100 mg at noon. We will increase it to 200 mg t.i.d. as a mood stabilizer. Maintain BuSpar along with Zyprexa p.r.n., trazodone p.r.n. Adjust further as clinically indicated. Assessment: Vital Signs/I&O: Vital Signs Date Time Temp Pulse Resp B/P (MAP) Pulse Ox O2 Delivery O2 Flow Rate FiO2 08/31/20 04:35 97.4 74 20 135/82 (99) 100 Room Air I & O 08/30/20 08/30/20 08/31/20 15:00 23:00 07:00 Intake Total 720 ml 360 ml Balance 720 ml 360 ml Current Medications: Meds: Current Medications Medications (Trade) Dose Ordered Sig/Lit Route PRN Reason Start Time Stop Time Status Last Admin Dose Admin Gabapentin (Neurontin) 100 mg 1300 PO 08/30/20 13:00 08/30/20 13:50 Gabapentin (Neurontin) 200 mg 0900,1700 PO 08/30/20 09:00 08/30/20 17:06 Gabapentin (Neurontin) 200 mg TID PO 08/30/20 21:00 08/30/20 20:36 I have reviewed the current psychotropics carefully including drug interactions. Risk benefit ratio favors no change other than as noted in my dictated progress note. Diagnosis: Problems: (1) Impulse control disorder, unspecified (2) Anxiety disorder, unspecified (3) Dementia, vascular, with depression (4) Dementia, vascular, with delusions (5) History of alcohol dependence (6) Major neurocognitive disorder (7) Major neurocognitive disorder, due to vascular disease, with behavioral disturbance, mild TL SAMUEL MD Aug 31, 2020 08:13
--- NOTE | 2020-08-31 14:20 | TX PLAN ---
Interdisciplinary Tx Plan Admission Information Aug 09, 2020 at 10:55 Legal Status (on Admission): Voluntary DPOA/Guardian Name: Saranya Roberts Contact Other Contact Name: [facility] Verified Code Status: DNR Allergies: Coded Allergies: No Known Drug Allergies (Unverified , 05/27/20) Diagnoses Primary Diagnosis: Major Neurocognitive D/O , vascular Alzheimers with delusions, depression, B/D Reasons for Admission: Hallucinations, Combative, Poor impulse control Problem in Patient's Words: N/A Additional Admission Comments: According to the intake, pt was on ICU being combative with cares, restless, attempting to get out of bed, delusional -- thinks he needs to get on a plane and worried he'll miss his flight. Problems Active Problems: delusional restless Inactive Problems: Medication compliant crushed Pt Strengths/Limitations Ability for [place]: Poor Cognitive Functioning/Ability: Poor Communication Skills/Ability: Fair Financial Resources: Fair Insight/Judgement: Poor Intellectual Ability: Poor Physical Health: Poor Social Skills: Fair Stability in Family: Good Stability in School/Work: Poor Verbal Skills: Fair Discharge Criteria Discharge Criteria: No need for close observ., Adequate arrangements @DC, Improved behavior, Improved mood/thought Preliminary Discharge Plan Preliminary DC Plan: Placement Needed Special Precautions Fall Risk: Moderate Initial D/C Plan Pt will need placement in LTC Identified Discharge Needs: Referrals for a higher level of care Currently Utilized Resources Currently Utilized Resources/P: Primary Care Physician Referrals Community Resources: Placement to LTC Identified Problems/Hx/Goals Objectives/Short-Term Goals Short Term Goals: Dec. Aggression, Dec. Outbursts, Medication Stabilization, Monitor Med Effects, Promote Coping Skill Short Term Goals in Patient's: NA Interventions/Frequency Staff Interventions/Frequency&: Psychiatrist to assess pt at least 3x per week for medication mgmt. Social Work to assess pt at least 2x per week for dishcarge planning and barrier potentials. Nursing to assess medications, manage behaviors and complete 15 minute checks daily. 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 On this date pt seemed to be more drowsy, less coherent or oriented and wanting to know why he was in the garage. He has been a bit more confused on this day. Pt still can be somewhat sarcastic, but mostly pleasant. He continues to enjoy talking with staff and other patients. Pt continues to have moments of delusio ns. Pt still takes laps around the unit. Pt d/c plan to discharge [facility]SE A once placement for pt can be found. MARÍA OLGUIN Aug 31, 2020 14:20
[2020-08-31 16:15] VITALS: BP 147/88
--- NOTE | 2020-08-31 20:53 | PDOC ---
Exam Note: [place] Note: Please also refer to the separate dictated note~for this date of service dictated separately.~Patient seen individually. Discussed the patient with Nursing staff reviewed the chart.~Reviewed interim history and current functioning. Reviewed vital signs,~Labs/ Radiology~and current medications noted below. Continue current treatment with the changes noted in the dictated addendum note Assessment: Vital Signs/I&O: Vital Signs Date Time Temp Pulse Resp B/P (MAP) Pulse Ox O2 Delivery O2 Flow Rate FiO2 08/31/20 16:15 98.6 78 20 147/88 (107) 99 08/31/20 04:35 Room Air I & O 08/30/20 08/30/20 08/31/20 14:59 22:59 06:59 Intake Total 720 ml 360 ml Balance 720 ml 360 ml Current Medications: Meds: Current Medications Medications (Trade) Dose Ordered Sig/Lit Route PRN Reason Start Time Stop Time Status Last Admin Dose Admin Gabapentin (Neurontin) 200 mg TID PO 08/30/20 21:00 08/31/20 14:21 I have reviewed the current psychotropics carefully including drug interactions. Risk benefit ratio favors no change other than as noted in my dictated progress note. Diagnosis: Problems: (1) Impulse control disorder, unspecified (2) Anxiety disorder, unspecified (3) Dementia, vascular, with depression (4) Dementia, vascular, with delusions (5) History of alcohol dependence (6) Major neurocognitive disorder (7) Major neurocognitive disorder, due to vascular disease, with behavioral disturbance, mild TL SAMUEL MD Aug 31, 2020 20:53
[2020-09-01 06:04] VITALS: BP 129/80
[2020-09-01] MEDS: busPIRone 5 MG TABLET. PO SCH ×2 (08:43→21:19)
[2020-09-01] MEDS: GABAPENTIN 100 MG CAPSULE. PO SCH ×5 (08:43→17:00)
[2020-09-01] MEDS: FOLIC ACID 1 MG TABLET PO SCH (08:44)
[2020-09-01] MEDS: MAGNESIUM OXIDE 400 MG TABLET PO SCH ×3 (08:44→21:19)
[2020-09-01] MEDS: MULTIVITAMIN with MINERAL TABLET. PO SCH (08:44)
[2020-09-01] MEDS: THIAMINE 100 MG TABLET. PO SCH (08:44)
[2020-09-01 15:00] VITALS: BP 147/89
--- NOTE | 2020-09-01 21:03 | PDOC ---
Exam Note: [place] Note: Please also refer to the separate dictated note~for this date of service dictated separately.~Patient seen individually. Discussed the patient with Nursing staff reviewed the chart.~Reviewed interim history and current functioning. Reviewed vital signs,~Labs/ Radiology~and current medications noted below. Continue current treatment with the changes noted in the dictated addendum note Assessment: Vital Signs/I&O: Vital Signs Date Time Temp Pulse Resp B/P (MAP) Pulse Ox O2 Delivery O2 Flow Rate FiO2 09/01/20 15:00 97.8 65 16 147/89 (108) 94 Room Air I & O 08/31/20 08/31/20 09/01/20 15:00 23:00 07:00 Intake Total 325 ml 120 ml Balance 325 ml 120 ml Current Medications: Meds: Current Medications Medications (Trade) Dose Ordered Sig/Lit Route PRN Reason Start Time Stop Time Status Last Admin Dose Admin Gabapentin (Neurontin) 200 mg 0900,1300,1700 PO 09/01/20 13:15 09/01/20 17:00 I have reviewed the current psychotropics carefully including drug interactions. Risk benefit ratio favors no change other than as noted in my dictated progress note. Diagnosis: Problems: (1) Impulse control disorder, unspecified (2) Anxiety disorder, unspecified (3) Dementia, vascular, with depression (4) Dementia, vascular, with delusions (5) History of alcohol dependence (6) Major neurocognitive disorder (7) Major neurocognitive disorder, due to vascular disease, with behavioral disturbance, mild TL SAMUEL MD Sep 01, 2020 21:03
[2020-09-02 06:30] VITALS: BP 146/77
--- NOTE | 2020-09-02 07:04 | PDOC ---
Exam Note: [place] Note: This note is a late entry for 08/31/2020 covers elements not covered in my initial note. Subjective: The patient was seen face to face in the morning of 08/31/2020 for treatment team meeting with Virgen Cardoso and Ya (social media coordinator staff), Amanda, Activity Therapy and Della MOREL. Discussed with nursing staff, reviewed the chart. He slept 7-1/2 hours. The patient is a little more oriented, responsive to his name, knew the year. Previous evening he was yelling out and anxious at times. He is restless in group. Review of Systems: Ambulation impaired in wheelchair. No CV, , pulmonary, eye, ENT system symptoms on review. Mental Status Exam: Oriented to himself. The patient has been less singing and less intrusive. Attention span is short. Language function is intact. Insight and judgment, recent and remote memory, attention and concentration, fund of knowledge is poor consistent with his diagnoses. Laboratory Data: Reviewed. 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 Anxiety disorder unspecified. Impulse control disorder unspecified. Plan: No change from initial note. Assessment: Vital Signs/I&O: Vital Signs Date Time Temp Pulse Resp B/P (MAP) Pulse Ox O2 Delivery O2 Flow Rate FiO2 09/02/20 06:30 98.8 78 18 146/77 (100) 96 Room Air I & O 09/01/20 09/01/20 09/02/20 14:59 22:59 06:59 Intake Total 480 ml 240 ml Balance 480 ml 240 ml Current Medications: Meds: Current Medications Medications (Trade) Dose Ordered Sig/Lit Route PRN Reason Start Time Stop Time Status Last Admin Dose Admin Gabapentin (Neurontin) 200 mg 0900,1300,1700 PO 09/01/20 13:15 09/01/20 17:00 I have reviewed the current psychotropics carefully including drug interactions. Risk benefit ratio favors no change other than as noted in my dictated progress note. Diagnosis: Problems: (1) Impulse control disorder, unspecified (2) Anxiety disorder, unspecified (3) Dementia, vascular, with depression (4) Dementia, vascular, with delusions (5) History of alcohol dependence (6) Major neurocognitive disorder (7) Major neurocognitive disorder, due to vascular disease, with behavioral disturbance, mild TL SAMUEL MD 21, 2020 07:04
--- NOTE | 2020-09-02 07:22 | PDOC ---
Exam Note: [place] Note: This note is a late entry for 09/01/2020 covers elements not covered in my initial note. Subjective: The patient was seen on telehealth rounds in the evening of 09/01/2020 with Franky MOREL. Discussed with nursing staff, reviewed the chart. He slept 5-3/4 hours. The patient has been singing once more but not intrusive, compliant previous evening. Review of Systems: Ambulation impaired in wheelchair. No CV, , pulmonary, eye, ENT system symptoms on review. Mental Status Exam: Oriented to himself. He is pleasant, interactive as I met with him. Insight and judgment, recent and remote memory, attention and concentration, fund of knowledge is poor consistent with his diagnoses. No barcenas icidal or homicidal ideation. 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 I have not been made aware of this by social service staff but will check into it. Laboratory Data: Reviewed. 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 Anxiety disorder unspecified. Impulse control disorder unspecified. Plan: No change from initial note. Assessment: Vital Signs/I&O: Vital Signs Date Time Temp Pulse Resp B/P (MAP) Pulse Ox O2 Delivery O2 Flow Rate FiO2 09/02/20 06:30 98.8 78 18 146/77 (100) 96 Room Air I & O 09/01/20 09/01/20 09/02/20 15:00 23:00 07:00 Intake Total 480 ml 240 ml Balance 480 ml 240 ml Current Medications: Meds: Current Medications Medications (Trade) Dose Ordered Sig/Lit Route PRN Reason Start Time Stop Time Status Last Admin Dose Admin Gabapentin (Neurontin) 200 mg 0900,1300,1700 PO 09/01/20 13:15 09/01/20 17:00 I have reviewed the current psychotropics carefully including drug interactions. Risk benefit ratio favors no change other than as noted in my dictated progress note. Diagnosis: Problems: (1) Alcohol dependence (2) Impulse control disorder, unspecified (3) Anxiety disorder, unspecified (4) Dementia, vascular, with depression (5) Dementia, vascular, with delusions (6) History of alcohol dependence (7) Major neurocognitive disorder (8) Major neurocognitive disorder, due to vascular disease, with behavioral disturbance, mild (9) Alcoholism /alcohol abuse (10) Hypothermia TL SAMUEL MD Sep 02, 2020 07:22
[2020-09-02] MEDS: busPIRone 5 MG TABLET. PO SCH ×2 (10:03→20:01)
[2020-09-02] MEDS: THIAMINE 100 MG TABLET. PO SCH (10:04)
[2020-09-02] MEDS: MULTIVITAMIN with MINERAL TABLET. PO SCH (10:04)
[2020-09-02] MEDS: MAGNESIUM OXIDE 400 MG TABLET PO SCH ×3 (10:04→20:01)
[2020-09-02] MEDS: FOLIC ACID 1 MG TABLET PO SCH (10:04)
[2020-09-02] MEDS: GABAPENTIN 100 MG CAPSULE. PO SCH ×3 (10:04→17:45)
[2020-09-02 12:05] LABS: BASO % 0 % (0-3); EOS # 0.1 x10^3/uL (0.0-0.7); EOS % 2 % (0-3); HEMATOCRIT 23.9 % (39.0-53.0); HEMOGLOBIN 7.8 g/dL (13.0-17.5); LYMPH # 0.3 x10^3/uL (1.0-4.8); LYMPH % 7 % (24-48); MEAN CORPUSCULAR HEMOGLOBIN 31 pg (25-35); MEAN CORPUSCULAR HGB CONC 33 g/dL (31-37); MEAN CORPUSCULAR VOLUME 94 fL (79-100); MONO # 0.3 x10^3/uL (0.0-1.1); MONO % 7 % (0-9); NEUT # 3.2 x10^3uL (1.8-7.7); NEUT % 84 % (31-73); PLATELET COUNT 139 x10^3/uL (140-400); RED BLOOD COUNT 2.56 x10^6/uL (4.30-5.70); RED CELL DISTRIBUTION WIDTH 15.2 % (11.5-14.5); WHITE BLOOD COUNT 3.8 x10^3/uL (4.0-11.0)
[2020-09-02 12:27] LABS: ALBUMIN 2.4 g/dL (3.4-5.0); ALBUMIN/GLOBULIN RATIO 0.6 (1.0-1.7); CALCIUM 9.1 mg/dL (8.5-10.1); CREATININE 1.1 mg/dL (0.7-1.3); GFR 64.1; POTASSIUM 4.2 mmol/L (3.5-5.1); TOTAL BILIRUBIN 0.3 mg/dL (0.2-1.0); TOTAL PROTEIN 6.4 g/dL (6.4-8.2)
[2020-09-02 14:11] LABS: % EOS 2 % (0-5); % LYMPHS 5 % (24-48); % MONOS 3 % (0-10); % SEGS 90 % (35-66); PLT ESTIMATE ADEQUATE (ADEQUATE)
[2020-09-02 15:58] VITALS: BP 163/83
[2020-09-02] MEDS: traZODone 50 MG TABLET. PO PRN (20:01)
--- NOTE | 2020-09-02 21:06 | PDOC ---
Exam Note: [place] Note: Please also refer to the separate dictated note~for this date of service dictated separately.~Patient seen individually. Discussed the patient with Nursing staff reviewed the chart.~Reviewed interim history and current functioning. Reviewed vital signs,~Labs/ Radiology~and current medications noted below. Continue current treatment with the changes noted in the dictated addendum note Assessment: Vital Signs/I&O: Vital Signs Date Time Temp Pulse Resp B/P (MAP) Pulse Ox O2 Delivery O2 Flow Rate FiO2 09/02/20 15:58 97.9 94 18 163/83 (109) 100 09/02/20 06:30 Room Air I & O 09/01/20 09/01/20 09/02/20 15:00 23:00 07:00 Intake Total 480 ml 240 ml Balance 480 ml 240 ml Labs: Laboratory Tests Test 09/02/20 11:35 White Blood Count 3.8 x10^3/uL (4.0-11.0) L Red Blood Count 2.56 x10^6/uL (4.30-5.70) L Hemoglobin 7.8 g/dL (13.0-17.5) L Hematocrit 23.9 % (39.0-53.0) L Mean Corpuscular Volume 94 fL (79-100) Mean Corpuscular Hemoglobin 31 pg (25-35) Mean Corpuscular Hemoglobin Concent 33 g/dL (31-37) Red Cell Distribution Width 15.2 % (11.5-14.5) H Platelet Count 139 x10^3/uL (140-400) L Neutrophils (%) (Auto) 84 % (31-73) H Lymphocytes (%) (Auto) 7 % (24-48) L Monocytes (%) (Auto) 7 % (0-9) Eosinophils (%) (Auto) 2 % (0-3) Basophils (%) (Auto) 0 % (0-3) Neutrophils # (Auto) 3.2 x10^3uL (1.8-7.7) Lymphocytes # (Auto) 0.3 x10^3/uL (1.0-4.8) L Monocytes # (Auto) 0.3 x10^3/uL (0.0-1.1) Eosinophils # (Auto) 0.1 x10^3/uL (0.0-0.7) Basophils # (Auto) 0.0 x10^3/uL (0.0-0.2) Segmented Neutrophils % 90 % (35-66) H Lymphocytes % 5 % (24-48) L Monocytes % 3 % (0-10) Eosinophils % 2 % (0-5) Platelet Estimate Adequate (ADEQUATE) Sodium Level 138 mmol/L (136-145) Potassium Level 4.2 mmol/L (3.5-5.1) Chloride Level 105 mmol/L (98-107) Carbon Dioxide Level 27 mmol/L (21-32) Anion Gap 6 (6-14) Blood Urea Nitrogen 25 mg/dL (8-26) Creatinine 1.1 mg/dL (0.7-1.3) Estimated GFR (Cockcroft-Gault) 64.1 BUN/Creatinine Ratio 23 (6-20) H Glucose Level 80 mg/dL (70-99) Calcium Level 9.1 mg/dL (8.5-10.1) Total Bilirubin 0.3 mg/dL (0.2-1.0) Aspartate Amino Transferase (AST) 19 U/L (15-37) Alanine Aminotransferase (ALT) 15 U/L (16-63) L Alkaline Phosphatase 70 U/L (46-116) Total Protein 6.4 g/dL (6.4-8.2) Albumin 2.4 g/dL (3.4-5.0) L Albumin/Globulin Ratio 0.6 (1.0-1.7) L Current Medications: I have reviewed the current psychotropics carefully including drug interactions. Risk benefit ratio favors no change other than as noted in my dictated progress note. Diagnosis: Problems: (1) Impulse control disorder, unspecified (2) Anxiety disorder, unspecified (3) Dementia, vascular, with depression (4) Dementia, vascular, with delusions (5) History of alcohol dependence (6) Major neurocognitive disorder (7) Major neurocognitive disorder, due to vascular disease, with behavioral disturbance, mild TL SAMUEL MD Sep 02, 2020 21:06
[2020-09-03 05:49] VITALS: BP 146/88
[2020-09-03] MEDS: FOLIC ACID 1 MG TABLET PO SCH (09:29)
[2020-09-03] MEDS: GABAPENTIN 100 MG CAPSULE. PO SCH ×3 (09:29→17:28)
[2020-09-03] MEDS: MULTIVITAMIN with MINERAL TABLET. PO SCH (09:29)
[2020-09-03] MEDS: THIAMINE 100 MG TABLET. PO SCH (09:29)
[2020-09-03] MEDS: MAGNESIUM OXIDE 400 MG TABLET PO SCH ×3 (09:29→19:47)
[2020-09-03] MEDS: busPIRone 5 MG TABLET. PO SCH ×2 (09:29→19:47)
[2020-09-03 15:00] VITALS: BP 144/85
[2020-09-03] MEDS: traZODone 50 MG TABLET. PO PRN (19:47)
--- NOTE | 2020-09-03 20:48 | PDOC ---
Exam Note: [place] Note: Please also refer to the separate dictated note~for this date of service dictated separately.~Patient seen individually. Discussed the patient with Nursing staff reviewed the chart.~Reviewed interim history and current functioning. Reviewed vital signs,~Labs/ Radiology~and current medications noted below. Continue current treatment with the changes noted in the dictated addendum note Assessment: Vital Signs/I&O: Vital Signs Date Time Temp Pulse Resp B/P (MAP) Pulse Ox O2 Delivery O2 Flow Rate FiO2 09/03/20 15:00 97.5 79 16 144/85 (104) 100 Room Air I & O 09/02/20 09/02/20 09/03/20 15:00 23:00 07:00 Intake Total 720 ml 480 ml Balance 720 ml 480 ml Labs: Laboratory Tests Test 09/03/20 06:00 SARS-CoV-2 (PCR) Negative (NEGATIVE) Current Medications: I have reviewed the current psychotropics carefully including drug interactions. Risk benefit ratio favors no change other than as noted in my dictated progress note. Diagnosis: Problems: (1) Impulse control disorder, unspecified (2) Anxiety disorder, unspecified (3) Dementia, vascular, with depression (4) Dementia, vascular, with delusions (5) History of alcohol dependence (6) Major neurocognitive disorder (7) Major neurocognitive disorder, due to vascular disease, with behavioral disturbance, mild TL SAMUEL MD Sep 03, 2020 20:48
[2020-09-04 05:57] VITALS: BP 137/71
--- NOTE | 2020-09-04 07:34 | PDOC ---
Exam Note: [place] Note: This note is a late entry for 09/02/2020 covers elements not covered in my initial note. Subjective: The patient was seen on telehealth rounds in the evening of 09/02/2020 with Wendy MOREL. Discussed with nursing staff, reviewed the chart. He slept 7-1/2 hours. The patient did well previous night and during the day, singing at times, takes his medications. Review of Systems: Ambulation impaired in wheelchair. No CV, , pulmonary, eye, ENT system symptoms on review. Mental Status Exam: Oriented to himself. He is less irritable, anxious, as I met with him individually. Insight and judgment, recent and remote memory, attention and concentration, fund of knowledge is poor consistent with his diagnoses. No suicidal or homicidal ideation. Laboratory Data: Reviewed. 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 Anxiety disorder unspecified. Impulse control disorder unspecified. Plan: No change from initial note. Assessment: Vital Signs/I&O: Vital Signs Date Time Temp Pulse Resp B/P (MAP) Pulse Ox O2 Delivery O2 Flow Rate FiO2 09/04/20 05:57 97.2 80 18 137/71 (93) 98 09/03/20 15:00 Room Air I & O 09/03/20 09/03/20 09/04/20 15:00 23:00 07:00 Intake Total 300 ml 460 ml Balance 300 ml 460 ml Current Medications: I have reviewed the current psychotropics carefully including drug interactions. Risk benefit ratio favors no change other than as noted in my dictated progress note. Diagnosis: Problems: (1) Impulse control disorder, unspecified (2) Anxiety disorder, unspecified (3) Dementia, vascular, with depression (4) Dementia, vascular, with delusions (5) History of alcohol dependence (6) Major neurocognitive disorder (7) Major neurocognitive disorder, due to vascular disease, with behavioral disturbance, mild TL SAMUEL MD Sep 04, 2020 07:34
--- NOTE | 2020-09-04 07:56 | PDOC ---
Exam Note: [place] Note: This note is a late entry for 09/03/2020 covers elements not covered in my initial note. Subjective: The patient was seen on telehealth rounds in the evening of 09/03/2020 with Wendy MOREL. Discussed with nursing staff, reviewed the chart. He slept 7-1/2 hours. The patient had a good day. He has been constantly asking for chocolates and nursing staff went to the wending machine and got him a chocolate bar on own funds and he is really appreciative of this. Review of Systems: Ambulation impaired in wheelchair. No CV, , pulmonary, eye, ENT system symptoms on review. Mental Status Exam: Oriented to himself. He remains quite confused, as I was talking about his daughter. He was unaware of where she is. Insight and judgment, recent and remote memory, attention and concentration, fund of knowledge is poor consistent with his diagnoses. No suicidal or homicidal ideation. Laboratory Data: Reviewed. 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 Anxiety disorder unspecified. Impulse control disorder unspecified. Plan: No change from initial note. Assessment: Vital Signs/I&O: Vital Signs Date Time Temp Pulse Resp B/P (MAP) Pulse Ox O2 Delivery O2 Flow Rate FiO2 09/04/20 05:57 97.2 80 18 137/71 (93) 98 09/03/20 15:00 Room Air I & O 09/03/20 09/03/20 09/04/20 15:00 23:00 07:00 Intake Total 300 ml 460 ml Balance 300 ml 460 ml Current Medications: I have reviewed the current psychotropics carefully including drug interactions. Risk benefit ratio favors no change other than as noted in my dictated progress note. Diagnosis: Problems: (1) Impulse control disorder, unspecified (2) Anxiety disorder, unspecified (3) Dementia, vascular, with depression (4) Dementia, vascular, with delusions (5) History of alcohol dependence (6) Major neurocognitive disorder, due to vascular disease, with behavioral disturbance, mild TL SAMUEL MD Sep 04, 2020 07:56
[2020-09-04] MEDS: GABAPENTIN 100 MG CAPSULE. PO SCH ×3 (09:53→17:27)
[2020-09-04] MEDS: MULTIVITAMIN with MINERAL TABLET. PO SCH (09:53)
[2020-09-04] MEDS: busPIRone 5 MG TABLET. PO SCH ×2 (09:53→19:56)
[2020-09-04] MEDS: MAGNESIUM OXIDE 400 MG TABLET PO SCH ×3 (09:53→19:56)
[2020-09-04] MEDS: FOLIC ACID 1 MG TABLET PO SCH (09:53)
[2020-09-04] MEDS: THIAMINE 100 MG TABLET. PO SCH (09:53)
[2020-09-04 15:16] VITALS: BP 125/71
[2020-09-04] MEDS: traZODone 50 MG TABLET. PO PRN (19:57)
--- NOTE | 2020-09-04 21:19 | PDOC ---
Exam Note: Taurus Note: Please also refer to the separate dictated note~for this date of service dictated separately.~Patient seen individually. Discussed the patient with Nursing staff reviewed the chart.~Reviewed interim history and current functioning. Reviewed vital signs,~Labs/ Radiology~and current medications noted below. Continue current treatment with the changes noted in the dictated addendum note Assessment: Vital Signs/I&O: Vital Signs Date Time Temp Pulse Resp B/P (MAP) Pulse Ox O2 Delivery O2 Flow Rate FiO2 09/04/20 15:16 97.1 79 16 125/71 (89) 98 09/03/20 15:00 Room Air I & O 09/03/20 09/03/20 09/04/20 15:00 23:00 07:00 Intake Total 300 ml 460 ml Balance 300 ml 460 ml Current Medications: I have reviewed the current psychotropics carefully including drug interactions. Risk benefit ratio favors no change other than as noted in my dictated progress note. Diagnosis: Problems: (1) Impulse control disorder, unspecified (2) Anxiety disorder, unspecified (3) Dementia, vascular, with depression (4) Dementia, vascular, with delusions (5) History of alcohol dependence (6) Major neurocognitive disorder, due to vascular disease, with behavioral disturbance, mild TL SAMUEL MD Sep 04, 2020 21:19
[2020-09-05 05:54] VITALS: BP 133/74
--- NOTE | 2020-09-05 07:58 | PDOC ---
Exam Note: Taurus Note: This note is a late entry for 09/04/2020 covers elements not covered in my initial note. Subjective: The patient was seen on telehealth rounds in the evening of 09/04/2020 with eWndy MOREL. Discussed with nursing staff, reviewed the chart. He slept 7-1/2 hours previous night. Overall the patient has done better. He was seen in his room on telehealth rounds. He was having dinner but unable to tell me what was on his tray. Review of Systems: Ambulation impaired in wheelchair. No CV, , pulmonary, eye, ENT system symptoms on review. Mental Status Exam: Oriented to himself. The patient is fairly pleasant. Often response is monosyllabic. Insight and judgment, recent and remote memory, attention and concentration, fund of knowledge is poor consistent with his diagnoses. No suicidal or homicidal ideation. Laboratory Data: Reviewed. 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 Anxiety disorder unspecified. Impulse control disorder unspecified. Plan: No change from initial note. Assessment: Vital Signs/I&O: Vital Signs Date Time Temp Pulse Resp B/P (MAP) Pulse Ox O2 Delivery O2 Flow Rate FiO2 09/05/20 05:54 97.8 71 16 133/74 (93) 99 09/03/20 15:00 Room Air I & O 09/04/20 09/04/20 09/05/20 15:00 23:00 07:00 Intake Total 1140 ml 425 ml Balance 1140 ml 425 ml Current Medications: I have reviewed the current psychotropics carefully including drug interactions. Risk benefit ratio favors no change other than as noted in my dictated progress note. Diagnosis: Problems: (1) Impulse control disorder, unspecified (2) Anxiety disorder, unspecified (3) Dementia, vascular, with depression (4) Dementia, vascular, with delusions (5) History of alcohol dependence (6) Major neurocognitive disorder, due to vascular disease, with behavioral disturbance, mild TL SAMUEL MD Sep 05, 2020 07:58
[2020-09-05] MEDS: FOLIC ACID 1 MG TABLET PO SCH (09:33)
[2020-09-05] MEDS: busPIRone 5 MG TABLET. PO SCH ×2 (09:34→20:56)
[2020-09-05] MEDS: THIAMINE 100 MG TABLET. PO SCH (09:34)
[2020-09-05] MEDS: GABAPENTIN 100 MG CAPSULE. PO SCH ×3 (09:34→17:18)
[2020-09-05] MEDS: MULTIVITAMIN with MINERAL TABLET. PO SCH (09:34)
[2020-09-05] MEDS: MAGNESIUM OXIDE 400 MG TABLET PO SCH ×3 (09:34→20:56)
[2020-09-05 15:47] VITALS: BP 159/88
--- NOTE | 2020-09-05 21:00 | PDOC ---
Exam Note: Taurus Note: Please also refer to the separate dictated note~for this date of service dictated separately.~Patient seen individually. Discussed the patient with Nursing staff reviewed the chart.~Reviewed interim history and current functioning. Reviewed vital signs,~Labs/ Radiology~and current medications noted below. Continue current treatment with the changes noted in the dictated addendum note Assessment: Vital Signs/I&O: Vital Signs Date Time Temp Pulse Resp B/P (MAP) Pulse Ox O2 Delivery O2 Flow Rate FiO2 09/05/20 15:47 97.9 80 16 159/88 (111) 99 09/03/20 15:00 Room Air I & O 09/04/20 09/04/20 09/05/20 15:00 23:00 07:00 Intake Total 1140 ml 425 ml Balance 1140 ml 425 ml Current Medications: I have reviewed the current psychotropics carefully including drug interactions. Risk benefit ratio favors no change other than as noted in my dictated progress note. Diagnosis: Problems: (1) Impulse control disorder, unspecified (2) Anxiety disorder, unspecified (3) Dementia, vascular, with depression (4) Dementia, vascular, with delusions (5) History of alcohol dependence (6) Major neurocognitive disorder (7) Major neurocognitive disorder, due to vascular disease, with behavioral disturbance, mild TL SAMUEL MD Sep 05, 2020 21:00
[2020-09-06] MEDS: traZODone 50 MG TABLET. PO PRN (00:12)
[2020-09-06 06:02] VITALS: BP 117/68
[2020-09-06 06:30] VITALS: BP 117/68
[2020-09-06] MEDS: THIAMINE 100 MG TABLET. PO SCH (08:19)
[2020-09-06] MEDS: MAGNESIUM OXIDE 400 MG TABLET PO SCH ×3 (08:20→20:15)
[2020-09-06] MEDS: FOLIC ACID 1 MG TABLET PO SCH (08:20)
[2020-09-06] MEDS: busPIRone 5 MG TABLET. PO SCH ×2 (08:20→20:15)
[2020-09-06] MEDS: MULTIVITAMIN with MINERAL TABLET. PO SCH (08:20)
[2020-09-06] MEDS: GABAPENTIN 100 MG CAPSULE. PO SCH ×3 (08:22→17:05)
--- NOTE | 2020-09-06 14:33 | TX PLAN ---
Interdisciplinary Tx Plan Admission Information Aug 09, 2020 at 10:55 Legal Status (on Admission): Voluntary DPOA/Guardian Name: Saranya Roberts Contact Other Contact Name: [facility] Verified Code Status: DNR Allergies: Coded Allergies: No Known Drug Allergies (Unverified , 05/27/20) Diagnoses Primary Diagnosis: Major Neurocognitive D/O , vascular Alzheimers with delusions, depression, B/D Reasons for Admission: Hallucinations, Combative, Poor impulse control Problem in Patient's Words: N/A Additional Admission Comments: According to the intake, pt was on ICU being combative with cares, restless, attempting to get out of bed, delusional -- thinks he needs to get on a plane and worried he'll miss his flight. Problems Active Problems: delusional restless Inactive Problems: Medication compliant crushed Pt Strengths/Limitations Ability for [place]: Poor Cognitive Functioning/Ability: Poor Communication Skills/Ability: Fair Financial Resources: Fair Insight/Judgement: Poor Intellectual Ability: Poor Physical Health: Poor Social Skills: Fair Stability in Family: Good Stability in School/Work: Poor Verbal Skills: Fair Discharge Criteria Discharge Criteria: No need for close observ., Adequate arrangements @DC, Improved behavior, Improved mood/thought Preliminary Discharge Plan Preliminary DC Plan: Placement Needed Special Precautions Fall Risk: Moderate Initial D/C Plan Pt will need placement in LTC Identified Discharge Needs: Referrals for a higher level of care Currently Utilized Resources Currently Utilized Resources/P: Primary Care Physician Referrals Community Resources: Placement to LTC Identified Problems/Hx/Goals Objectives/Short-Term Goals Short Term Goals: Dec. Aggression, Dec. Outbursts, Medication Stabilization, Monitor Med Effects, Promote Coping Skill Short Term Goals in Patient's: NA Interventions/Frequency Staff Interventions/Frequency&: Psychiatrist to assess pt at least 3x per week for medication mgmt. Social Work to assess pt at least 2x per week for dishcarge planning and barrier potentials. Nursing to assess medications, manage behaviors and complete 15 minute checks daily. 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 Education: Pt has his Master in Education Community Follow-up Primary care physician Treatment Plan Explained Patient/Tube Puller had this treatment plan explained to him/her as indicated by the signature below and has been given the opportunity to ask questions and make suggestions: Date: Patient/Tube Puller Signature: Status Update Update Pt has been eating 100% of meals and continues to sleep on average 7 hours per night. Pt has been calm and pleasant. Pt has been observed wheeling himself around the unit engaging with staff and other patients. He has, also, been engaging in conversation with his roommate, which seems to be going well. Pt to discharge JOSE A once placement for pt can be found. MARÍA OLGUIN Sep 06, 2020 14:33
[2020-09-06 15:49] VITALS: BP 127/80
--- NOTE | 2020-09-06 21:00 | PDOC ---
Exam Note: Taurus Note: Please also refer to the separate dictated note~for this date of service dictated separately.~Patient seen individually. Discussed the patient with Nursing staff reviewed the chart.~Reviewed interim history and current functioning. Reviewed vital signs,~Labs/ Radiology~and current medications noted below. Continue current treatment with the changes noted in the dictated addendum note Assessment: Vital Signs/I&O: Vital Signs Date Time Temp Pulse Resp B/P (MAP) Pulse Ox O2 Delivery O2 Flow Rate FiO2 09/06/20 15:49 97.6 85 16 127/80 (96) 96 09/03/20 15:00 Room Air I & O 09/05/20 09/05/20 09/06/20 15:00 23:00 07:00 Intake Total 600 ml 340 ml Balance 600 ml 340 ml Current Medications: I have reviewed the current psychotropics carefully including drug interactions. Risk benefit ratio favors no change other than as noted in my dictated progress note. Diagnosis: Problems: (1) Impulse control disorder, unspecified (2) Anxiety disorder, unspecified (3) Dementia, vascular, with depression (4) Dementia, vascular, with delusions (5) History of alcohol dependence (6) Major neurocognitive disorder (7) Major neurocognitive disorder, due to vascular disease, with behavioral disturbance, mild TL SAMUEL MD Sep 06, 2020 21:00
[2020-09-07 05:40] VITALS: BP 142/81
[2020-09-07] MEDS: THIAMINE 100 MG TABLET. PO SCH (08:31)
[2020-09-07] MEDS: busPIRone 5 MG TABLET. PO SCH ×2 (08:31→20:00)
[2020-09-07] MEDS: FOLIC ACID 1 MG TABLET PO SCH (08:32)
[2020-09-07] MEDS: GABAPENTIN 100 MG CAPSULE. PO SCH ×3 (08:32→17:12)
[2020-09-07] MEDS: MAGNESIUM OXIDE 400 MG TABLET PO SCH ×3 (08:32→20:00)
[2020-09-07] MEDS: MULTIVITAMIN with MINERAL TABLET. PO SCH (08:32)
[2020-09-07 15:43] VITALS: BP 129/79
[2020-09-07] MEDS: traZODone 50 MG TABLET. PO PRN (20:03)
--- NOTE | 2020-09-07 21:00 | PDOC ---
Exam Note: Taurus Note: This note is a late entry for 09/05/2020 covers elements not covered in my initial note. Subjective: The patient was seen face to face in the evening of 09/05/2020 with Franky MOREL. Discussed with nursing staff, reviewed the chart. He slept 8-1/2 hours previous night. The patient has been less anxious, restless, less singing and less intrusive. At times he was yelling at another patient but that patient was being disruptive. Review of Systems: Ambulation impaired in wheelchair. No CV, , pulmonary, eye, ENT system symptoms on review. Mental Status Exam: Oriented to himself. He is less sarcastic, less irritable, still confused. Memory is impaired. Insight and judgment, recent and remote memory, attention and concentration, fund of knowledge is poor consistent with his diagnoses. No suicidal or homicidal ideation. Laboratory Data: Reviewed. 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 Anxiety disorder unspecified. Impulse control disorder unspecified. Plan: No change from initial note. Assessment: Vital Signs/I&O: Vital Signs Date Time Temp Pulse Resp B/P (MAP) Pulse Ox O2 Delivery O2 Flow Rate FiO2 09/07/20 15:43 97.2 83 20 129/79 (96) 100 09/03/20 15:00 Room Air l I & O 09/06/20 09/06/20 09/07/20 15:00 23:00 07:00 Intake Total 840 ml 480 ml Balance 840 ml 480 ml Current Medications: I have reviewed the current psychotropics carefully including drug interactions. Risk benefit ratio favors no change other than as noted in my dictated progress note. Diagnosis: Problems: (1) Impulse control disorder, unspecified (2) Anxiety disorder, unspecified (3) Dementia, vascular, with depression (4) Dementia, vascular, with delusions (5) History of alcohol dependence (6) Major neurocognitive disorder, due to vascular disease, with behavioral disturbance, mild TL SAMUEL MD Sep 07, 2020 21:00
--- NOTE | 2020-09-07 21:25 | PDOC ---
Exam Note: Taurus Note: This note is a late entry for 09/06/2020 covers elements not covered in my initial note. Subjective: The patient was seen on telehealth rounds in the morning of 09/06/2020 for treatment team meeting with Virgen Cardoso and Ya, social services coordinator, Amanda, activity therapy, and Franky RN. Discussed with nursing staff, reviewed the chart. He slept 6-1/2 hours previous night. Appetite is 100%. He was calm previous evening, little more active during the day. No singing, less intrusive. Review of Systems: Ambulation impaired in wheelchair. No CV, , pulmonary, eye, ENT system symptoms on review. Mental Status Exam: Oriented to himself. I met with him in his room. He is less anxious, restless, irritable, less sarcastic. Insight and judgment, recent and remote memory, attention and concentration, fund of knowledge is poor consistent with his diagnoses. No suicidal or homicidal ideation. Laboratory Data: Reviewed. 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 Anxiety disorder unspecified. Impulse control disorder unspecified. Plan: No change from initial note. Assessment: Vital Signs/I&O: Vital Signs Date Time Temp Pulse Resp B/P (MAP) Pulse Ox O2 Delivery O2 Flow Rate FiO2 09/07/20 15:43 97.2 83 20 129/79 (96) 100 09/03/20 15:00 Room Air I & O 09/06/20 09/06/20 09/07/20 15:00 23:00 07:00 Intake Total 840 ml 480 ml Balance 840 ml 480 ml Current Medications: I have reviewed the current psychotropics carefully including drug interactions. Risk benefit ratio favors no change other than as noted in my dictated progress note. Diagnosis: Problems: (1) Impulse control disorder, unspecified (2) Anxiety disorder, unspecified (3) Dementia, vascular, with depression (4) Dementia, vascular, with delusions (5) History of alcohol dependence (6) Major neurocognitive disorder, due to vascular disease, with behavioral disturbance, mild JIMMIETL SANTANA MD Sep 07, 2020 21:25
--- NOTE | 2020-09-07 21:34 | PDOC ---
Exam Note: Taurus Note: Please also refer to the separate dictated note~for this date of service dictated separately.~Patient seen individually. Discussed the patient with Nursing staff reviewed the chart.~Reviewed interim history and current functioning. Reviewed vital signs,~Labs/ Radiology~and current medications noted below. Continue current treatment with the changes noted in the dictated addendum note Assessment: Vital Signs/I&O: Vital Signs Date Time Temp Pulse Resp B/P (MAP) Pulse Ox O2 Delivery O2 Flow Rate FiO2 09/07/20 15:43 97.2 83 20 129/79 (96) 100 09/03/20 15:00 Room Air I & O 09/06/20 09/06/20 09/07/20 15:00 23:00 07:00 Intake Total 840 ml 480 ml Balance 840 ml 480 ml Current Medications: I have reviewed the current psychotropics carefully including drug interactions. Risk benefit ratio favors no change other than as noted in my dictated progress note. Diagnosis: Problems: (1) Impulse control disorder, unspecified (2) Anxiety disorder, unspecified (3) Dementia, vascular, with depression (4) Dementia, vascular, with delusions (5) History of alcohol dependence (6) Major neurocognitive disorder (7) Major neurocognitive disorder, due to vascular disease, with behavioral disturbance, mild TL SAMUEL MD Sep 07, 2020 21:34
[2020-09-08 06:09] LABS: BASO % 0 % (0-3); EOS # 0.1 x10^3/uL (0.0-0.7); EOS % 4 % (0-3); HEMATOCRIT 25.7 % (39.0-53.0); HEMOGLOBIN 8.3 g/dL (13.0-17.5); LYMPH # 0.3 x10^3/uL (1.0-4.8); LYMPH % 8 % (24-48); MEAN CORPUSCULAR HEMOGLOBIN 30 pg (25-35); MEAN CORPUSCULAR HGB CONC 32 g/dL (31-37); MEAN CORPUSCULAR VOLUME 94 fL (79-100); MONO # 0.4 x10^3/uL (0.0-1.1); MONO % 10 % (0-9); NEUT # 3.1 x10^3uL (1.8-7.7); NEUT % 78 % (31-73); PLATELET COUNT 168 x10^3/uL (140-400); RED BLOOD COUNT 2.74 x10^6/uL (4.30-5.70); RED CELL DISTRIBUTION WIDTH 15.6 % (11.5-14.5)
[2020-09-08 06:11] VITALS: BP 121/80
[2020-09-08 06:32] LABS: ALBUMIN 2.6 g/dL (3.4-5.0); ALBUMIN/GLOBULIN RATIO 0.6 (1.0-1.7); CALCIUM 8.9 mg/dL (8.5-10.1); CREATININE 1.2 mg/dL (0.7-1.3); POTASSIUM 4.3 mmol/L (3.5-5.1); TOTAL BILIRUBIN 0.3 mg/dL (0.2-1.0); TOTAL PROTEIN 6.7 g/dL (6.4-8.2)
--- NOTE | 2020-09-08 08:03 | PDOC ---
Exam Note: Taurus Note: This note is a late entry for 09/07/2020 covers elements not covered in my initial note. Subjective: The patient was seen on telehealth rounds in the evening of 09/07/2020 with Franky MOREL. Discussed with nursing staff, reviewed the chart. He slept 9-1/4 hours previous night. Per nursing report, the patient has done better. He has not been singing or intrusive. I met with him on telehealth rounds. Review of Systems: Ambulation impaired in wheelchair. No CV, , pulmonary, eye, ENT system symptoms on review. Mental Status Exam: Oriented to himself. I met with him in his room. Insight and judgment, recent and remote memory, attention and concentration, fund of knowledge is poor consistent with his diagnoses. No suicidal or homicidal ideation. Laboratory Data: Reviewed. 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 Anxiety disorder unspecified. Impulse control disorder u nspecified. Plan: No change from initial note. Assessment: Vital Signs/I&O: Vital Signs Date Time Temp Pulse Resp B/P (MAP) Pulse Ox O2 Delivery O2 Flow Rate FiO2 09/08/20 06:11 98.3 80 20 121/80 (94) 97 Room Air I & O 09/07/20 09/07/20 09/08/20 15:00 23:00 07:00 Intake Total 720 ml 240 ml Balance 720 ml 240 ml Labs: Laboratory Tests Test 09/08/20 05:54 White Blood Count 4.0 x10^3/uL (4.0-11.0) Red Blood Count 2.74 x10^6/uL (4.30-5.70) L Hemoglobin 8.3 g/dL (13.0-17.5) L Hematocrit 25.7 % (39.0-53.0) L Mean Corpuscular Volume 94 fL (79-100) Mean Corpuscular Hemoglobin 30 pg (25-35) Mean Corpuscular Hemoglobin Concent 32 g/dL (31-37) Red Cell Distribution Width 15.6 % (11.5-14.5) H Platelet Count 168 x10^3/uL (140-400) Neutrophils (%) (Auto) 78 % (31-73) H Lymphocytes (%) (Auto) 8 % (24-48) L Monocytes (%) (Auto) 10 % (0-9) H Eosinophils (%) (Auto) 4 % (0-3) H Basophils (%) (Auto) 0 % (0-3) Neutrophils # (Auto) 3.1 x10^3uL (1.8-7.7) Lymphocytes # (Auto) 0.3 x10^3/uL (1.0-4.8) L Monocytes # (Auto) 0.4 x10^3/uL (0.0-1.1) Eosinophils # (Auto) 0.1 x10^3/uL (0.0-0.7) Basophils # (Auto) 0.0 x10^3/uL (0.0-0.2) Sodium Level 138 mmol/L (136-145) Potassium Level 4.3 mmol/L (3.5-5.1) Chloride Level 106 mmol/L (98-107) Carbon Dioxide Level 28 mmol/L (21-32) Anion Gap 4 (6-14) L Blood Urea Nitrogen 25 mg/dL (8-26) Creatinine 1.2 mg/dL (0.7-1.3) Estimated GFR (Cockcroft-Gault) 58.0 BUN/Creatinine Ratio 21 (6-20) H Glucose Level 89 mg/dL (70-99) Calcium Level 8.9 mg/dL (8.5-10.1) Magnesium Level 2.2 mg/dL (1.8-2.4) Total Bilirubin 0.3 mg/dL (0.2-1.0) Aspartate Amino Transferase (AST) 14 U/L (15-37) L Alanine Aminotransferase (ALT) 14 U/L (16-63) L Alkaline Phosphatase 76 U/L (46-116) Total Protein 6.7 g/dL (6.4-8.2) Albumin 2.6 g/dL (3.4-5.0) L Albumin/Globulin Ratio 0.6 (1.0-1.7) L Current Medications: I have reviewed the current psychotropics carefully including drug interactions. Risk benefit ratio favors no change other than as noted in my dictated progress note. Diagnosis: Problems: (1) Impulse control disorder, unspecified (2) Anxiety disorder, unspecified (3) Dementia, vascular, with depression (4) Dementia, vascular, with delusions (5) History of alcohol dependence (6) Major neurocognitive disorder, due to vascular disease, with behavioral disturbance, mild TL SAMUEL MD Sep 08, 2020 08:03
[2020-09-08] MEDS: busPIRone 5 MG TABLET. PO SCH ×2 (08:18→19:56)
[2020-09-08] MEDS: GABAPENTIN 100 MG CAPSULE. PO SCH ×3 (08:18→17:00)
[2020-09-08] MEDS: THIAMINE 100 MG TABLET. PO SCH (08:18)
[2020-09-08] MEDS: MULTIVITAMIN with MINERAL TABLET. PO SCH (08:18)
[2020-09-08] MEDS: MAGNESIUM OXIDE 400 MG TABLET PO SCH ×3 (08:18→19:55)
[2020-09-08] MEDS: FOLIC ACID 1 MG TABLET PO SCH (08:18)
[2020-09-08] MEDS ORDERED: FUROSEMIDE 80 MG TABLET PO ONE (14:00)
[2020-09-08 15:43] VITALS: BP 155/89
[2020-09-08] MEDS: traZODone 50 MG TABLET. PO PRN (19:55)
--- NOTE | 2020-09-08 20:49 | PDOC ---
Exam Note: Taurus Note: Please also refer to the separate dictated note~for this date of service dictated separately.~Patient seen individually. Discussed the patient with Nursing staff reviewed the chart.~Reviewed interim history and current functioning. Reviewed vital signs,~Labs/ Radiology~and current medications noted below. Continue current treatment with the changes noted in the dictated addendum note Assessment: Vital Signs/I&O: Vital Signs Date Time Temp Pulse Resp B/P (MAP) Pulse Ox O2 Delivery O2 Flow Rate FiO2 09/08/20 15:43 98.3 92 18 155/89 (111) 99 09/08/20 06:11 Room Air I & O 09/07/20 09/07/20 09/08/20 15:00 23:00 07:00 Intake Total 720 ml 240 ml Balance 720 ml 240 ml Labs: Laboratory Tests Test 09/08/20 05:54 White Blood Count 4.0 x10^3/uL (4.0-11.0) Red Blood Count 2.74 x10^6/uL (4.30-5.70) L Hemoglobin 8.3 g/dL (13.0-17.5) L Hematocrit 25.7 % (39.0-53.0) L Mean Corpuscular Volume 94 fL (79-100) Mean Corpuscular Hemoglobin 30 pg (25-35) Mean Corpuscular Hemoglobin Concent 32 g/dL (31-37) Red Cell Distribution Width 15.6 % (11.5-14.5) H Platelet Count 168 x10^3/uL (140-400) Neutrophils (%) (Auto) 78 % (31-73) H Lymphocytes (%) (Auto) 8 % (24-48) L Monocytes (%) (Auto) 10 % (0-9) H Eosinophils (%) (Auto) 4 % (0-3) H Basophils (%) (Auto) 0 % (0-3) Neutrophils # (Auto) 3.1 x10^3uL (1.8-7.7) Lymphocytes # (Auto) 0.3 x10^3/uL (1.0-4.8) L Monocytes # (Auto) 0.4 x10^3/uL (0.0-1.1) Eosinophils # (Auto) 0.1 x10^3/uL (0.0-0.7) Basophils # (Auto) 0.0 x10^3/uL (0.0-0.2) Sodium Level 138 mmol/L (136-145) Potassium Level 4.3 mmol/L (3.5-5.1) Chloride Level 106 mmol/L (98-107) Carbon Dioxide Level 28 mmol/L (21-32) Anion Gap 4 (6-14) L Blood Urea Nitrogen 25 mg/dL (8-26) Creatinine 1.2 mg/dL (0.7-1.3) Estimated GFR (Cockcroft-Gault) 58.0 BUN/Creatinine Ratio 21 (6-20) H Glucose Level 89 mg/dL (70-99) Calcium Level 8.9 mg/dL (8.5-10.1) Magnesium Level 2.2 mg/dL (1.8-2.4) Total Bilirubin 0.3 mg/dL (0.2-1.0) Aspartate Amino Transferase (AST) 14 U/L (15-37) L Alanine Aminotransferase (ALT) 14 U/L (16-63) L Alkaline Phosphatase 76 U/L (46-116) Total Protein 6.7 g/dL (6.4-8.2) Albumin 2.6 g/dL (3.4-5.0) L Albumin/Globulin Ratio 0.6 (1.0-1.7) L Current Medications: Meds: Current Medications Medications (Trade) Dose Ordered Sig/Lit Route PRN Reason Start Time Stop Time Status Last Admin Dose Admin Furosemide (Lasix) 80 mg 1X ONCE PO 09/08/20 14:00 09/08/20 14:01 DC 09/08/20 13:55 I have reviewed the current psychotropics carefully including drug interactions. Risk benefit ratio favors no change other than as noted in my dictated progress note. Diagnosis: Problems: (1) Impulse control disorder, unspecified (2) Anxiety disorder, unspecified (3) Dementia, vascular, with depression (4) Dementia, vascular, with delusions (5) History of alcohol dependence (6) Major neurocognitive disorder (7) Major neurocognitive disorder, due to vascular disease, with behavioral disturbance, mild JIMMIETL SANTANA MD Sep 08, 2020 20:49
[2020-09-09 06:27] VITALS: BP 150/67
[2020-09-09] MEDS: MAGNESIUM OXIDE 400 MG TABLET PO SCH ×3 (09:01→20:03)
[2020-09-09] MEDS: MULTIVITAMIN with MINERAL TABLET. PO SCH (09:01)
[2020-09-09] MEDS: busPIRone 5 MG TABLET. PO SCH ×2 (09:01→20:03)
[2020-09-09] MEDS: GABAPENTIN 100 MG CAPSULE. PO SCH ×3 (09:01→17:16)
[2020-09-09] MEDS: THIAMINE 100 MG TABLET. PO SCH (09:01)
[2020-09-09] MEDS: FOLIC ACID 1 MG TABLET PO SCH (09:01)
[2020-09-09 16:37] VITALS: BP 146/87
[2020-09-09] MEDS: traZODone 50 MG TABLET. PO PRN (20:04)
--- NOTE | 2020-09-09 21:05 | PDOC ---
Exam Note: [place] Note: This note is a late entry for 09/08/2020 covers elements not covered in my initial note. Subjective: The patient was seen on telehealth rounds in the evening of 09/08/2020 with Teresa MOREL as the unit is on a lockdown by the [place] [facility] because there were 2 patients who turned out positive for COVID-19 and no admission or discharges can be done for next 2 weeks due to the quarantine requirements. Discussed with nursing staff, reviewed the chart. He slept 9 hours previous night. Review of Systems: Ambulation impaired in wheelchair. No CV, , pulmonary, eye, ENT system symptoms on review. Mental Status Exam: Oriented to himself. The patient is quite pleasant. Often verbal responses are short. I talked to him about his singing. He states he stopped that for a few days but was quite pleasant, not dismissive. Insight and judgment, recent and remote memory, attention and concentration, fund of knowledge is poor consistent with his diagnoses. No suicidal or homicidal ideation. Laboratory Data: Reviewed. 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 Anxiety disorder unspecified. Impulse control disorder unspecified. Plan: No change from initial note. Assessment: Vital Signs/I&O: Vital Signs Date Time Temp Pulse Resp B/P (MAP) Pulse Ox O2 Delivery O2 Flow Rate FiO2 09/09/20 16:37 98.8 88 18 146/87 (106) 99 09/09/20 06:27 Room Air I & O 09/08/20 09/08/20 09/09/20 15:00 23:00 07:00 Intake Total 640 ml 360 ml Balance 640 ml 360 ml Current Medications: I have reviewed the current psychotropics carefully including drug interactions. Risk benefit ratio favors no change other than as noted in my dictated progress note. Diagnosis: Problems: (1) Impulse control disorder, unspecified (2) Anxiety disorder, unspecified (3) Dementia, vascular, with depression (4) Dementia, vascular, with delusions (5) History of alcohol dependence (6) Major neurocognitive disorder, due to vascular disease, with behavioral disturbance, mild TL SAMUEL MD Sep 09, 2020 21:05
--- NOTE | 2020-09-09 21:13 | PDOC ---
Exam Note: Taurus Note: Please also refer to the separate dictated note~for this date of service dictated separately.~Patient seen individually. Discussed the patient with Nursing staff reviewed the chart.~Reviewed interim history and current functioning. Reviewed vital signs,~Labs/ Radiology~and current medications noted below. Continue current treatment with the changes noted in the dictated addendum note Assessment: Vital Signs/I&O: Vital Signs Date Time Temp Pulse Resp B/P (MAP) Pulse Ox O2 Delivery O2 Flow Rate FiO2 09/09/20 16:37 98.8 88 18 146/87 (106) 99 09/09/20 06:27 Room Air I & O 09/08/20 09/08/20 09/09/20 15:00 23:00 07:00 Intake Total 640 ml 360 ml Balance 640 ml 360 ml Current Medications: I have reviewed the current psychotropics carefully including drug interactions. Risk benefit ratio favors no change other than as noted in my dictated progress note. Diagnosis: Problems: (1) Impulse control disorder, unspecified (2) Anxiety disorder, unspecified (3) Dementia, vascular, with depression (4) Dementia, vascular, with delusions (5) History of alcohol dependence (6) Major neurocognitive disorder, due to vascular disease, with behavioral disturbance, mild TL SAMUEL MD Sep 09, 2020 21:13
[2020-09-10 06:17] VITALS: BP 140/80
[2020-09-10] MEDS: busPIRone 5 MG TABLET. PO SCH (08:43)
[2020-09-10] MEDS: THIAMINE 100 MG TABLET. PO SCH (08:44)
[2020-09-10] MEDS: GABAPENTIN 100 MG CAPSULE. PO SCH ×3 (08:44→17:00)
[2020-09-10] MEDS: MULTIVITAMIN with MINERAL TABLET. PO SCH (08:44)
[2020-09-10] MEDS: FOLIC ACID 1 MG TABLET PO SCH (08:44)
[2020-09-10] MEDS: MAGNESIUM OXIDE 400 MG TABLET PO SCH ×2 (08:44→13:06)
[2020-09-10 16:00] VITALS: BP 168/83
[2020-09-10] MEDS ORDERED: BISA10SU4 RC (16:43)
[2020-09-10] MEDS ORDERED: GABA-585 PO (16:44)
[2020-09-10] MEDS ORDERED: BUSP5TAB PO (16:46)
[2020-09-10] MEDS ORDERED: TRAZ-120 PO (16:47)
--- NOTE | 2020-09-11 00:16 | PDOC ---
Exam Note: Taurus Note: Please also refer to the separate dictated note~for this date of service dictated separately.~Patient seen individually. Discussed the patient with Nursing staff reviewed the chart.~Reviewed interim history and current functioning. Reviewed vital signs,~Labs/ Radiology~and current medications noted below. Continue current treatment with the changes noted in the dictated addendum note Assessment: Vital Signs/I&O: Vital Signs Date Time Temp Pulse Resp B/P (MAP) Pulse Ox O2 Delivery O2 Flow Rate FiO2 09/10/20 16:00 97.5 88 16 168/83 (111) 99 09/09/20 06:27 Room Air I & O 09/10/20 09/10/20 09/11/20 15:00 23:00 07:00 Intake Total 840 ml Balance 840 ml Current Medications: I have reviewed the current psychotropics carefully including drug interactions. Risk benefit ratio favors no change other than as noted in my dictated progress note. Diagnosis: Problems: (1) Impulse control disorder, unspecified (2) Anxiety disorder, unspecified (3) Dementia, vascular, with depression (4) Dementia, vascular, with delusions (5) History of alcohol dependence (6) Major neurocognitive disorder, due to vascular disease, with behavioral disturbance, mild TL SAMUEL MD Sep 11, 2020 00:16
--- NOTE | 2020-09-11 22:46 | DS ---
DATE OF DISCHARGE: 09/10/2020 DISCHARGE SUMMARY/PSYCHIATRIC PROGRESS NOTE This late entry 09/10/2020 covers elements not covered in my initial note. REASON FOR ADMISSION: Please refer to the admission history for details. Briefly, the patient is an 80-year-old male referred to us from [facility] in [place] on account of increasing psychotic symptoms, confusion, agitation, aggression, disruptive behaviors. He was initially on our unit. Adjustments were made in his psychotropics given his ongoing significant mood lability, impulse control problem, psychotic symptoms. He then developed medical complications, was transitioned to the ICU and then returns back once behaviors resurfaced even after medical stabilization. SIGNIFICANT FINDINGS AND CLINICAL COURSE: Following admission, the patient was seen daily individually by myself from a psychiatric standpoint. Medical followup with Dr. Vega/Dr. Sutton. The patient's psychotropics were adjusted and he did much better from a psychiatric standpoint. He was pleasant, singing at times, humming to himself, interacting, but oblivious of his surroundings getting into other patient's rooms. REVIEW OF SYSTEMS: Ambulation impaired, somewhat hard of hearing. REVIEW OF SYSTEMS: No CV, , pulmonary, eye system symptoms on review. MENTAL STATUS EXAM: Oriented to himself. Insight, judgment, recent and remote memory, attention, concentration, fund of knowledge poor, consistent with his diagnosis. On 09/10/2020, the patient tested positive for COVID-19 and was transitioned to the medical/surgical floor. DISCHARGE DIAGNOSES: Major neurocognitive disorder, Alzheimer, vascular with delusion, depression, behavioral disturbance; anxiety disorder, unspecified; impulse control disorder, unspecified, COVID-19 positive status. Rest unchanged from admission. DISCHARGE MEDICATIONS: Please refer to the MRAD. DISCHARGE INSTRUCTIONS: Medical and psychiatric followup on the medical surgical floor. TL SAMUEL MD DR: MARLEEN/teo JOB#: [id number] / [id number]
--- NOTE | 2020-09-12 08:43 | PDOC ---
Exam Note: Taurus Note: This note is a late entry for 09/09/2020 covers elements not covered in my initial note. Subjective: The patient was seen on telehealth rounds in the evening of 09/09/2020 with Jenna MOREL as the unit is on a lockdown by the [place] [employer] because of COVID-19 exposure on the unit and no admission or discharges can be done for next 2 weeks due to the quarantine requirements. Discussed with nursing staff, reviewed the chart. He slept 9 hours previous night. Review of Systems: Ambulation impaired in wheelchair. No CV, , pulmonary, eye, ENT system symptoms on review. Mental Status Exam: Oriented to himself. The patient remains somewhat distractible, anxious but appropriate. He was having dinner and was not dismissive or sarcastic like he had been in the past. Insight and judgment, recent and remote memory, attention and concentration, fund of knowledge is poor consistent with his diagnoses. No suicidal or homicidal ideation. Laboratory Data: Reviewed. 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 Anxiety disorder unspecified. Impulse control disorder unspecified. Plan: No change from initial note. Assessment: Vital Signs/I&O: Vital Signs Date Time Temp Pulse Resp B/P (MAP) Pulse Ox O2 Delivery O2 Flow Rate FiO2 09/10/20 16:00 97.5 88 16 168/83 (111) 99 09/09/20 06:27 Room Air Current Medications: I have reviewed the current psychotropics carefully including drug interactions. Risk benefit ratio favors no change other than as noted in my dictated progress note. Diagnosis: Problems: (1) Impulse control disorder, unspecified (2) Anxiety disorder, unspecified (3) Dementia, vascular, with depression (4) Dementia, vascular, with delusions (5) History of alcohol dependence (6) Major neurocognitive disorder, due to vascular disease, with behavioral disturbance, mild TL SAMUEL MD Sep 12, 2020 08:43
== END 2020-09-10 18:01 | disposition short-term general hospital (02) | DRG 56 ==
LOC: GEROPSY 10:55
PROVIDERS: ADMIT Psychiatry & Neurology Psychiatry; ATTEND Psychiatry & Neurology Psychiatry
DX: G30.9 Alzheimer's disease, unspecified (principal); F01.51 Vascular dementia, unspecified severity, with behavioral disturbance; U07.1 COVID-19; F02.81 Dementia in other diseases classified elsewhere, unspecified severity, with behavioral disturbance; F41.9 Anxiety disorder, unspecified; I35.0 Nonrheumatic aortic (valve) stenosis; K21.9 Gastro-esophageal reflux disease without esophagitis; K57.90 Diverticulosis of intestine, part unspecified, without perforation or abscess without bleeding; I10 Essential (primary) hypertension; F32.9 Major depressive disorder, single episode, unspecified; F63.9 Impulse disorder, unspecified; I48.91 Unspecified atrial fibrillation; Z85.46 Personal history of malignant neoplasm of prostate; Z91.83 Wandering in diseases classified elsewhere; F10.10 Alcohol abuse, uncomplicated
CPT/HCPCS: 36415; 80053; 81001; 83735; 83880; 85007; 85025; 85027; 87086; U0003

== ENCOUNTER 2020-09-10 18:01 | Inpatient (IN) | payer MEDICARE, MEDICAID ==
[~2020-09-10] VITALS: Ht 185.4 cm; Wt 67.9 kg
[~2020-09-10 18:01] MED LIST changes: +BISA10SU4 RC; +BUSP5TAB PO; +GABA-585 PO
--- NOTE | 2020-09-10 19:00 | NUR ---
The patient, LU LANDIS, 80 y/o, M admitted by CAROLINE MCCARTY MD, was given written information regarding hospital policies, unit procedures and contact persons. Valuables were checked and glasses were only personal item with pt on transfer from [facility].
[2020-09-10] MEDS ORDERED: NYSTATIN TOPICAL POWDER 15GM BOTTLE. TP PRN (19:45)
[2020-09-10] MEDS ORDERED: MAG HYDROX/AL HYDROX/SIMETH 30 ML ORAL.SUSP PO PRN (19:45)
[2020-09-10] MEDS ORDERED: BISACODYL 10 MG SUPP.RECT RC PRN (19:45)
[2020-09-10] MEDS ORDERED: MAGNESIUM HYDROXIDE 2,400 MG/30 ML ORAL.SUSP. PO PRN (20:00)
[2020-09-10 20:27] VITALS: BP 145/89
[2020-09-10] MEDS: traZODone 50 MG TABLET. PO PRN (20:43)
[2020-09-10] MEDS: busPIRone 5 MG TABLET. PO SCH (20:44)
[2020-09-10] MEDS: MAGNESIUM OXIDE 400 MG TABLET PO SCH (20:44)
[2020-09-10] MEDS ORDERED: METHYL SALICYLATE/MENTHOL TOPICAL OINTMENT 57GM TUBE. TP PRN (20:45)
[2020-09-10] MEDS ORDERED: METHYL SALICYLATE/MENTHOL TOPICAL OINTMENT 57GM TUBE. TP SCH (21:00)
[2020-09-10 23:06] VITALS: BP 134/88
[2020-09-11 06:00] VITALS: BP 103/70
--- NOTE | 2020-09-11 06:23 | RAD ---
CHEST AP ONLY INDICATION: Reason: covid 19 positive / Spl. Instructions: / History: . COMPARISON STUDY: 08/06/2020. FINDINGS: Life Support Devices: Left pectoral ICD/pacemaker. Lungs: Normal lung volume. Prominent interstitial marking. Pleura: Trace bilateral pleural effusions. Heart and Mediastinum: Stable cardiomediastinal silhouette and great vessels. Bones and Soft Tissues: Stable regional skeleton and soft tissues. IMPRESSION: Prominent interstitial markings may reflect interstitial edema. Trace bilateral pleural effusions. Electronically signed by: Timothy Martinez MD (09/11/2020 6:20 AM) [facility]ITALDavid
--- NOTE | 2020-09-11 09:36 | HP ---
ADMIT DATE: 09/11/2020 ATTENDING PHYSICIAN: Dr. Mccarty. HISTORY OF PRESENT ILLNESS: The patient is well known to us. He is an 80-year-old gentleman from the [facility]. He has been there since mid May, this is going on 4 months now. They had issues about placing him. He had been admitted several times to the medical floor before sending him back up to the Behavioral Unit, he is now back due to a positive swab on the floor of COVID-19 coronavirus. He has no symptoms at this time. He denied any chest pain, shortness of breath. He has not been febrile and a chest x-ray done yesterday showed prominent interstitial markings and trace bilateral pleural effusion, which is chronic in nature. No acute infiltrates are identified. The patient does not appear toxic. He has adequate saturations. He is admitted then for quarantine. PAST MEDICAL HISTORY: Significant for profound dementia, chronic alcoholism, Wernicke-Korsakoff syndrome, impulse control disorder, dementia, depression, cognitive disorder, necrotizing pancreatitis by history, alcohol dependence, hypothermia probably due to poor instrumentation. CURRENT MEDICATIONS: On the Behavioral Unit include Tylenol, bisacodyl, BuSpar, folic acid, Neurontin, magnesium hydroxide, nystatin, thiamine and trazodone. ALLERGIES: He has no recorded drug allergies. SOCIAL HISTORY: Heavy alcohol use in the past, smoker too. FAMILY HISTORY: Unobtainable. REVIEW OF SYSTEMS: Unobtainable. He has been in our facility for the last three and a half months. Once again, placement has been difficult because of behavioral issues. He tested positive for COVID-19 several days ago. PHYSICAL EXAMINATION: VITAL SIGNS: His initial blood pressure was 134/88, pulse 86 and regular, temperature 97.4 degrees Fahrenheit. HEENT: Head is without trauma. Pupils are reactive. Sclerae nonicteric. Oropharynx is clear. NECK: Supple, no bruits identified. LUNGS: Actually clear to auscultation. CARDIOVASCULAR: Showed regular heart tones. No gallops. Peripheral pulses are palpable and full. ABDOMEN: Soft, scaphoid, nontender, no organomegaly. Bowel sounds were hypoactive. EXTREMITIES: Showed no cyanosis or edema. NEUROLOGIC: Focally intact. Speech is fluent. He is pleasantly confused. PERTINENT LABORATORY STUDIES: Reviewed. He had a COVID-19 swab that was positive. His hemoglobin is 8.3 g/dL, white count 4000. Chemistry showed a creatinine of 1.2 mg percent. Electrolytes are within normal range. Iron levels were diminished. Transaminases unremarkable. BNP 1900. ASSESSMENT: 1. This 80-year-old gentleman has COVID-19 coronavirus test returned positive. He remains asymptomatic at this time, there is no respiratory distress, he has been afebrile. 2. Profound dementia. 3. Chronic alcoholism. 4. Wernicke-Korsakoff syndrome. 5. Iron deficiency anemia. 6. Generalized debilitation. PLAN: 1. Admit to the medical floor. 2. COVID-19 isolation. 3. Given the lack of symptoms at this time, I would not treat him for any pulmonary issues unless he gets more symptomatic. His x-ray is fairly unremarkable. The changes on the x-ray are chronic in nature. 4. Continue psychiatric meds from the [facility]. 5. He is a DNR per advanced directives. CAROLINE MCCARTY MD DR: ESTEBAN/teo JOB#: [id number] / [id number] TL Auguste MD
[2020-09-11] MEDS: MULTIVITAMIN with MINERAL TABLET. PO SCH (10:37)
[2020-09-11] MEDS: MAGNESIUM OXIDE 400 MG TABLET PO SCH ×3 (10:37→20:31)
[2020-09-11] MEDS: FOLIC ACID 1 MG TABLET PO SCH (10:37)
[2020-09-11] MEDS: THIAMINE 100 MG TABLET. PO SCH (10:37)
[2020-09-11] MEDS: GABAPENTIN 100 MG CAPSULE. PO SCH ×3 (10:38→17:18)
[2020-09-11] MEDS: busPIRone 5 MG TABLET. PO SCH ×2 (10:38→20:31)
[2020-09-11 11:23] VITALS: BP 106/68
[2020-09-11 15:19] VITALS: BP 93/67
[2020-09-11 20:17] VITALS: BP 109/55
[2020-09-12 06:33] VITALS: BP 128/87
[2020-09-12] MEDS: THIAMINE 100 MG TABLET. PO SCH (08:54)
[2020-09-12] MEDS: MAGNESIUM OXIDE 400 MG TABLET PO SCH ×3 (08:54→20:43)
[2020-09-12] MEDS: GABAPENTIN 100 MG CAPSULE. PO SCH ×3 (08:54→17:35)
[2020-09-12] MEDS: MULTIVITAMIN with MINERAL TABLET. PO SCH (08:54)
[2020-09-12] MEDS: busPIRone 5 MG TABLET. PO SCH ×2 (08:54→20:42)
[2020-09-12] MEDS: FOLIC ACID 1 MG TABLET PO SCH (08:54)
[2020-09-12 11:03] VITALS: BP 98/56
[2020-09-12 15:28] VITALS: BP 115/72
[2020-09-12 19:53] VITALS: BP 130/69
--- NOTE | 2020-09-12 20:07 | PN ---
DATE: 09/12/2020 ATTENDING PHYSICIAN: Dr. Mccarty. SUBJECTIVE: He wants to get out of here. He has no insight into the fact that he has no home. He thinks he lives upstairs in the [facility]. OBJECTIVE FINDINGS: VITAL SIGNS: Blood pressure today is 128/87, pulse 79 and regular, temperature 97.9 degrees Fahrenheit, oxygen saturation 98% on room air. HEENT: Head is without trauma. Pupils are reactive. Sclerae nonicteric. Oropharynx clear. NECK: Supple, no bruits. LUNGS: Good breath sounds. CARDIOVASCULAR: Showed regular heart tones. No gallops. ABDOMEN: Soft, no guarding. Bowel sounds are normoactive. EXTREMITIES: Showed no edema. NEUROLOGIC: Focally intact, pleasantly confused. SKIN: Warm and dry. ASSESSMENT: 1. An 80-year-old gentleman with COVID-19 positive swab. He remains asymptomatic at this time. There is no respiratory distress. 2. Profound dementia. 3. Chronic alcoholism. 4. Iron deficiency anemia. 5. Wernicke-Korsakoff syndrome. 6. Generalized debilitation. PLAN: 1. COVID-19 isolation. 2. Meds reviewed. 3. Diet as tolerated. 4. He is a DNR per advanced directive. 5. Placement will be an issue because he has been here going on 4 months now and we have not been able to place him. CAROLINE MCCARTY MD DR: ESTEBAN/teo JOB#: [id number] / [id number]
[2020-09-12] MEDS: traZODone 50 MG TABLET. PO PRN (20:42)
--- NOTE | 2020-09-12 20:44 | NUR ---
Patient restless, attention seeking, ringing call light. Temperature adjusted in room (warmer per patient request), lights dimmed and drink provided. Patient remained restless. PRN Trazodone given for restless, insomnia. Will continue to monitor.
[2020-09-13 05:55] VITALS: BP 118/64
--- NOTE | 2020-09-13 05:58 | NUR ---
Patient slept well overnight and was cooperative for morning cares. He had been incontinent of bowel and bladder. Patient brief changed, linens changed and barrier cream applied. Patients skin on back and bottom reddened, but intact. Patient has significant amount of edema to testicles. Patient asking for breakfast at 0400, given a nutra grain bar and a glass of water. Patient is calmly watching sports on television.
[2020-09-13] MEDS: MULTIVITAMIN with MINERAL TABLET. PO SCH (08:57)
[2020-09-13] MEDS: busPIRone 5 MG TABLET. PO SCH ×2 (08:57→20:04)
[2020-09-13] MEDS: FOLIC ACID 1 MG TABLET PO SCH (08:57)
[2020-09-13] MEDS: MAGNESIUM OXIDE 400 MG TABLET PO SCH ×3 (08:57→20:04)
[2020-09-13] MEDS: THIAMINE 100 MG TABLET. PO SCH (08:57)
[2020-09-13] MEDS: GABAPENTIN 100 MG CAPSULE. PO SCH ×3 (08:57→16:11)
[2020-09-13 10:46] VITALS: BP 92/52
[2020-09-13 14:44] VITALS: BP 110/61
[2020-09-13] MEDS: traZODone 50 MG TABLET. PO PRN (20:03)
[2020-09-13] MEDS: ACETAMINOPHEN 325 MG TABLET PO PRN (20:04)
[2020-09-13 20:17] VITALS: BP 139/80
--- NOTE | 2020-09-14 01:03 | PN ---
DATE: 09/13/2020 SUBJECTIVE: The patient is resting, slightly propped up in bed, in no apparent distress. On questioning him, he denied any complaint. Nursing staff stated that he continued to have occasional episodes of dry cough, but he remained generally asymptomatic. PHYSICAL EXAMINATION: GENERAL: When I examined him, he looked pale but no jaundice, cyanosis or thyromegaly. No jugular venous distention. No limb edema. VITAL SIGNS: Her heart rate was 78, blood pressure was 110/61, temperature was 99.1, respiratory rate 20, and oxygen saturation was 99%. HEENT: Normocephalic, atraumatic. NECK: Supple. HEART: Showed normal first and second heart sounds with no gallop, rub or murmur. CHEST: Clear to auscultation. No crepitation or rhonchi. ABDOMEN: Distended, soft, nontender. NEUROLOGIC: He was demented, but without any obvious lateralizing sign. He moves all extremities without difficulty. LABORATORY DATA: His most recent lab work was done on 09/08/2020. His chest x-ray showed that he has prominent facial markings, may reflect interstitial edema, trace bilateral pleural effusion. ASSESSMENT: 1. An 80-year-old gentleman with COVID-19 positive swabs who remains asymptomatic at this time. He has dry cough, but he is maintaining his oxygen saturation at 98% on room air. 2. Profound dementia. 3. Chronic alcoholism. 4. Iron deficiency anemia. 5. Wernicke-Korsakoff syndrome. 6. Generalized debility. PLAN: To continue on quarantine in the medical unit. Continue with diet as tolerated. Continue with all his medications. Obviously, he will be swabbed again and depending on the result, he will be placed in the detention facility if negative. CHANTALE FERRELL MD DR: BHAVIN/teo JOB#: [id number] / [id number]
[2020-09-14 06:32] VITALS: BP 158/88
[2020-09-14 06:51] LABS: HEMATOCRIT 25.7 % (39.0-53.0); HEMOGLOBIN 8.4 g/dL (13.0-17.5); RED BLOOD COUNT 2.81 x10^6/uL (4.30-5.70); RED CELL DISTRIBUTION WIDTH 15.9 % (11.5-14.5)
[2020-09-14 06:57] LABS: WHITE BLOOD COUNT 1.7 x10^3/uL (4.0-11.0)
[2020-09-14 07:04] LABS: ALBUMIN 2.3 g/dL (3.4-5.0); ALBUMIN/GLOBULIN RATIO 0.5 (1.0-1.7); CALCIUM 8.3 mg/dL (8.5-10.1); CREATININE 1.1 mg/dL (0.7-1.3); GFR 64.1; POTASSIUM 4.2 mmol/L (3.5-5.1); TOTAL BILIRUBIN 0.3 mg/dL (0.2-1.0); TOTAL PROTEIN 6.5 g/dL (6.4-8.2)
[2020-09-14 11:20] VITALS: BP 119/60
[2020-09-14] MEDS: busPIRone 5 MG TABLET. PO SCH ×2 (11:45→19:48)
[2020-09-14] MEDS: GABAPENTIN 100 MG CAPSULE. PO SCH ×3 (11:45→18:39)
[2020-09-14] MEDS: MAGNESIUM OXIDE 400 MG TABLET PO SCH ×3 (11:45→19:48)
[2020-09-14] MEDS: THIAMINE 100 MG TABLET. PO SCH (11:46)
[2020-09-14] MEDS: FOLIC ACID 1 MG TABLET PO SCH (11:46)
[2020-09-14] MEDS: MULTIVITAMIN with MINERAL TABLET. PO SCH (11:46)
--- NOTE | 2020-09-14 12:04 | NUR ---
1300 gabapentin and 1400 mag held r/t morning medications not being given until 1130.
[2020-09-14] MEDS: ENOXAPARIN 40 MG/0.4 ML SYRINGE. SQ SCH (18:39)
--- NOTE | 2020-09-14 19:32 | NUR ---
Patient has been yelling on and off all day. His room is located close to the nurses station. This morning he spit his multivitamin onto his sheets and has now been stating, "you took my 7 pills" and then upped it to "you took my 19 pills". He uses a new number every time this nurse goes into the room. He also stated that his insurance would be "billing him for the medications that this nurse didn't give him". Patient was yelling "coat, coat, coat" early in the afternoon. BRICK UNLOADER TENDER went to find a coat, but was unable to find one. Patient given a t-shirt instead and was quiet for about 30 minutes. Later he began yelling "teeth, teeth, teeth". When nurse entered the room to see what he wanted he stated that he wanted teeth. Nurse told him that he has his teeth and he called the nurse a "smart ass". It was eventually determined that the patient wanted a new cup of water. Water provided. Patient has had multiple ice creams, oreos and other snacks and distraction has been attempted multiple times. Patient has no behavioral PRNs, he was calmer near shift change. Patient has not been combative and is compliant with his medications taken whole, two at a time.
[2020-09-14] MEDS: ACETAMINOPHEN 325 MG TABLET PO PRN (19:49)
[2020-09-14] MEDS: traZODone 50 MG TABLET. PO PRN (19:49)
[2020-09-14 20:26] VITALS: BP 161/75
[2020-09-15 05:28] VITALS: BP 146/76
--- NOTE | 2020-09-15 08:55 | PDOC ---
Exam Note: Taurus Note: This is a late entry for 09/14/2020. Please also refer to the separate dictated note~for this date of service dictated separately.~Patient seen individually. Discussed the patient with Meaghan MOREL reviewed the chart.~Reviewed interim history and current functioning. Reviewed vital signs,~Labs/ Radiology~and curre nt medications noted below. Continue current treatment with the changes noted in the dictated addendum note Assessment: Vital Signs/I&O: Vital Signs Date Time Temp Pulse Resp B/P (MAP) Pulse Ox O2 Delivery O2 Flow Rate FiO2 09/15/20 05:28 97.4 77 20 146/76 (99) 97 Room Air I & O 09/14/20 09/14/20 09/15/20 15:00 23:00 07:00 Intake Total 480 ml 1080 ml 150 ml Balance 480 ml 1080 ml 150 ml Current Medications: Meds: Current Medications Medications (Trade) Dose Ordered Sig/Lit Route PRN Reason Start Time Stop Time Status Last Admin Dose Admin Enoxaparin Sodium (Lovenox 40mg Syringe) 40 mg Q24H SQ 09/14/20 18:00 09/14/20 18:39 I have reviewed the current psychotropics carefully including drug interactions. Risk benefit ratio favors no change other than as noted in my dictated progress note. Diagnosis: Problems: (1) Impulse control disorder, unspecified (2) Anxiety disorder, unspecified (3) Dementia, vascular, with depression (4) Dementia, vascular, with delusions (5) Major neurocognitive disorder (6) Major neurocognitive disorder, due to vascular disease, with behavioral disturbance, mild (7) COVID-19 TL SAMUEL MD Sep 15, 2020 08:55
[2020-09-15] MEDS: THIAMINE 100 MG TABLET. PO SCH (09:14)
[2020-09-15] MEDS: GABAPENTIN 100 MG CAPSULE. PO SCH ×3 (09:14→17:00)
[2020-09-15] MEDS: FOLIC ACID 1 MG TABLET PO SCH (09:14)
[2020-09-15] MEDS: MULTIVITAMIN with MINERAL TABLET. PO SCH (09:14)
[2020-09-15] MEDS: busPIRone 5 MG TABLET. PO SCH ×2 (09:14→21:51)
[2020-09-15] MEDS: MAGNESIUM OXIDE 400 MG TABLET PO SCH ×3 (09:14→21:51)
[2020-09-15 10:51] VITALS: BP 132/77
--- NOTE | 2020-09-15 16:01 | NUR ---
SIMONE received call from pt dtr, Saranya, to get an update on pt. Saranya is concerned as she is attempting to financially get pt in order, she has been asked for a financial power of machinist outside. She realizes that pt more than likely cannot sign it or understand the need for one. But has requested that SW speak with pt to see if he does understand and would be willing to sign it. She is not banking on this happening but would just request an attempt.
--- NOTE | 2020-09-15 16:50 | PN ---
DATE: 09/14/2020 SUBJECTIVE: The patient is resting almost flat in bed, in no apparent distress. He is awake, alert. On questioning him, he denied any complaint. Nursing staff stated that he continued to have episodes of restlessness, agitation and combativeness feeling, but otherwise he remained hemodynamically stable and afebrile. PHYSICAL EXAMINATION: GENERAL: When I examined him, he looked well and was clearly in no apparent respiratory distress. No pallor, jaundice, cyanosis, or thyromegaly. No jugular venous distension. No limb edema. VITAL SIGNS: Her heart rate was 86, blood pressure was 119/60, temperature 97.9, respiratory rate was 20, and oxygen saturation was 99% on room air. HEAD, EYES, EARS, NOSE AND THROAT: Normocephalic, atraumatic. NECK: Supple. HEART: Showed normal first and second heart sounds. No gallop or murmur. CHEST: Clear to auscultation. No crepitation or rhonchi. ABDOMEN: Distended, soft, nontender. NEUROLOGIC: He was awake, alert, confused, but all his cranial nerves are intact. He moves extremities without difficulty, although he is mostly bedbound, chair bound. His intake over the last 24 hours was almost 1300, no output was recorded. LABORATORY DATA: As of this morning, his white cell count was 1700, hemoglobin 8.4, hematocrit 25.7, MCV 91, and platelet count of 134,000. His chemistry showed a serum sodium 136, potassium 4.2, chloride 104, bicarbonate 25, anion gap of 7, BUN 21, creatinine 1.1, estimated GFR was 64 mL per minute. His glucose was 85, calcium was 8.3. Total bilirubin, AST, ALT, alkaline phosphatase were normal. Total protein 6.5, albumin was 2.3. ASSESSMENT: 1. This is an 80-year-old gentleman with COVID-19 positive swabs who remains asymptomatic at this time. He has occasional episodes of dry cough; however, he is maintaining his oxygen saturation at 98% on room air. 2. Profound dementia. 3. Chronic alcoholism. 4. Iron deficiency anemia/myelodysplastic syndrome. 5. Wernicke-Korsakoff syndrome. 6. Generalized debility. PLAN: To continue on quarantine him on the medical floor. Continue with all his diet as tolerated. Continue with all his medication as he is mostly bedbound. He is obviously going to be high risk for DVT and therefore I will start him on Lovenox 40 mg subcutaneous once a day. CHANTALE FERRELL MD DR: BHAVIN/teo JOB#: [id number] / [id number]
[2020-09-15] MEDS: ENOXAPARIN 40 MG/0.4 ML SYRINGE. SQ SCH (18:00)
--- NOTE | 2020-09-15 18:00 | NUR ---
Pt has been up in bed for meals. Was yelling out intermittantly throughout day. Wants to go walking in halls. Has been easily directable. Has been compliant with meds and cares.
[2020-09-15 19:43] VITALS: BP 136/77
[2020-09-16 06:25] VITALS: BP 140/82
[2020-09-16] MEDS: THIAMINE 100 MG TABLET. PO SCH (08:24)
[2020-09-16] MEDS: MAGNESIUM OXIDE 400 MG TABLET PO SCH ×3 (08:24→20:21)
[2020-09-16] MEDS: FOLIC ACID 1 MG TABLET PO SCH (08:24)
[2020-09-16] MEDS: busPIRone 5 MG TABLET. PO SCH ×2 (08:25→20:21)
[2020-09-16] MEDS: GABAPENTIN 100 MG CAPSULE. PO SCH ×3 (08:25→16:27)
[2020-09-16] MEDS: MULTIVITAMIN with MINERAL TABLET. PO SCH (08:25)
[2020-09-16 11:49] VITALS: BP 121/68
[2020-09-16] MEDS: ENOXAPARIN 40 MG/0.4 ML SYRINGE. SQ SCH (16:27)
--- NOTE | 2020-09-16 18:16 | PN ---
DATE: SUBJECTIVE: The patient is resting, slightly propped up in bed, in no apparent distress. He continued to be extremely agitated, restless, yelling, and screaming. PHYSICAL EXAMINATION: GENERAL: When I examined him, he looked well and was clearly in no apparent respiratory distress, pale, but no jaundice, cyanosis, or thyromegaly. No jugular venous distention. No limb edema. VITAL SIGNS: His heart rate was 82, blood pressure was 132/77, temperature was 98.9, respiratory rate was 20, and oxygen saturation was 97%. HEAD, EYES, EARS, NOSE, AND THROAT: Showed normocephalic, atraumatic. NECK: Supple. HEART: Normal first and second heart sounds. No gallop, rub, or murmur. CHEST: Clear to auscultation. No crepitation or rhonchi. ABDOMEN: Distended, soft, and nontender. NEUROLOGIC: He was grossly demented, but was grossly intact. Her intake was 1600, no output was recorded. LABORATORY DATA: As of yesterday showed white cell count of 1700, hemoglobin 8.4, hematocrit 25, MCV 91, and platelet count ____. His chemistry showed his BUN was 21, creatinine 1.1 with normal electrolytes and liver enzymes. ASSESSMENT: 1. This is an 80-year-old gentleman with COVID-19 positive swabs who remains generally asymptomatic at this time. He has occasional episodes of dry cough; however, he is maintaining his oxygen saturation 98% on room air. 2. Profound dementia. 3. Chronic alcoholism. 4. Pancytopenia, likely due to myelodysplastic syndrome. 5. Wernicke-Korsakoff syndrome. 6. Generalized debility. PLAN: To continue quarantine him on the medical floor. Continue all his medication as tolerated. Continue with diet as tolerated. CHANTALE FERRELL MD DR: BHAVIN/teo JOB#: [id number] / [id number]
--- NOTE | 2020-09-16 18:37 | RAD ---
Exam: Chest one view INDICATION: Fever, cough TECHNIQUE: Frontal view of the chest Comparisons: 09/11/2020 FINDINGS: Pacer with leads terminating the right atrium and ventricle. Heart is mildly enlarged. Pulmonary vessels are within normal limits. Small bilateral pleural effusions. There is hazy bibasilar airspace disease. IMPRESSION: Findings likely related to pulmonary edema with small bilateral pleural effusions Electronically signed by: Henrik Duffy MD (09/16/2020 6:34 PM) [facility]
[2020-09-16 18:59] VITALS: BP 148/75
--- NOTE | 2020-09-17 00:35 | PN ---
DATE: SUBJECTIVE: The patient is resting, slightly propped up in bed, in no apparent distress. On questioning him, he denied any complaint. Nursing staff stated he is less aggressive, combative, today is not yelling or singing, yelling loudly. PHYSICAL EXAMINATION: GENERAL: When I examined him, he looked well and was clearly in no apparent respiratory distress, slightly pale. No jaundice, cyanosis or thyromegaly. No jugular venous distention. No limb edema. VITAL SIGNS: His heart rate was 77, blood pressure was 121/68, temperature was 98.3, respiratory rate was 16 and oxygen saturation was 97%. HEAD, EYES, EARS, NOSE AND THROAT: Showed normocephalic, atraumatic. NECK: Supple. HEART: Showed normal first and second heart sounds. No gallop, rub or murmur. CHEST: Clear to auscultation. No crepitation or rhonchi. ABDOMEN: Distended, soft, nontender. NEUROLOGIC: He was awake, alert, at times very confused. All his cranial nerves are intact. He moves extremities without difficulty, although he is mostly bedbound. His intake over the last 24 hours was 1200, no output was recorded. LABORATORY DATA: He has no lab work done this morning. He did spike his temperature yesterday up to 101.6, however, this morning is now 98.3. ASSESSMENT: This is an 80-year-old gentleman with; 1. COVID-19 positive swabs, who remains largely asymptomatic. He has occasional episodes of dry cough; however, he is maintaining his oxygen saturation at 98% on room air. He did spike his temperature up to 101 yesterday; however, he is afebrile today. 2. The patient has profound dementia. 3. Chronic alcoholism. 4. Pancytopenia, likely due to myelodysplastic syndrome. 5. Wernicke-Korsakoff syndrome. 6. Generalized debility. PLAN: Continue quarantine him on the medical floor. Continue with all his diet as tolerated. Continue with all his medications as recommended by the psychiatrist. He is a high risk for DVT and therefore, he was started on Lovenox 40 mg subcutaneously once a day. I will repeat his lab work again and we will obviously dobson culture him if necessary and do a chest x-ray if he spikes his temperature again. CHANTALE FERRELL MD DR: Naomi JOB#: [id number] / [id number]
[2020-09-17 04:59] VITALS: BP 162/88
--- NOTE | 2020-09-17 07:21 | NUR ---
Nursing Note The patient was very resistive with all cares and interactions this shift. the patient has been very disorganized and argumentative with all cares this shift and yells during interactions. the patients lungs are clear but diminished, bowels are active. The patient has had three or more loose liquid stools this shift and so a sample was sent to lab to check for C-Dif. Lab draws this morning were unsuccessful R/T resistiveness of the patient.
[2020-09-17] MEDS: busPIRone 5 MG TABLET. PO SCH ×3 (08:59→21:00)
[2020-09-17] MEDS: MAGNESIUM OXIDE 400 MG TABLET PO SCH ×4 (08:59→21:00)
[2020-09-17] MEDS: THIAMINE 100 MG TABLET. PO SCH (08:59)
[2020-09-17] MEDS: GABAPENTIN 100 MG CAPSULE. PO SCH ×3 (08:59→17:18)
[2020-09-17] MEDS: FOLIC ACID 1 MG TABLET PO SCH (08:59)
[2020-09-17] MEDS: MULTIVITAMIN with MINERAL TABLET. PO SCH (08:59)
[2020-09-17 09:21] LABS: HEMATOCRIT 26.8 % (39.0-53.0); HEMOGLOBIN 8.6 g/dL (13.0-17.5); RED BLOOD COUNT 3.02 x10^6/uL (4.30-5.70); RED CELL DISTRIBUTION WIDTH 16.5 % (11.5-14.5)
[2020-09-17 09:26] LABS: ALBUMIN 2.3 g/dL (3.4-5.0); ALBUMIN/GLOBULIN RATIO 0.6 (1.0-1.7); CALCIUM 8.1 mg/dL (8.5-10.1); GFR 71.5; TOTAL BILIRUBIN 0.4 mg/dL (0.2-1.0); TOTAL PROTEIN 6.4 g/dL (6.4-8.2)
[2020-09-17 11:58] VITALS: BP 141/82
[2020-09-17] MEDS: ACETAMINOPHEN 325 MG TABLET PO PRN (14:10)
[2020-09-17] MEDS: ENOXAPARIN 40 MG/0.4 ML SYRINGE. SQ SCH (17:18)
[2020-09-17 19:50] VITALS: BP 141/92
--- NOTE | 2020-09-18 01:49 | PN ---
DATE: 09/17/2020 SUBJECTIVE: The patient is resting, slightly propped up in bed, in no apparent respiratory distress. He is awake, alert, confused at times. He seemed to be much quieter today. He is not telling or singing loudly. Nursing staff did not voice any concern except that he has continued to have poor appetite. PHYSICAL EXAMINATION: GENERAL: When I examined him, he looked well and was clearly in no apparent respiratory distress, pale, not jaundiced, cyanosed or thyromegaly. ____ jugular venous distention or limb edema. VITAL SIGNS: His heart rate was 73, blood pressure was 141/82, temperature was 99, respiratory rate 20, and oxygen saturation was 98%. HEAD, EYES, EARS, NOSE, AND THROAT: Showed normocephalic, atraumatic. NECK: Supple. HEART: Normal first and second sounds. No gallop or murmur. CHEST: Clear to auscultation. No crepitation or rhonchi. ABDOMEN: Soft, nontender. NEUROLOGIC: He is demented, but without any obvious lateralizing sign. His intake was 1200, no output was recorded. LABORATORY DATA: His lab work this morning showed a white cell count of 2000, hemoglobin 8.6, hematocrit 26.8, MCV 89 and platelet count of 125,000. His chemistry showed a serum sodium 136, potassium 4, chloride 105, bicarbonate 23, anion gap of 8, BUN 18, creatinine 1, estimated GFR was 71 mL per minute. His glucose was 86, calcium was 8.1. Total bilirubin, AST, ALT, alkaline phosphatase were normal. Total protein 6.4. His albumin was 2.3. ASSESSMENT: This is an 80-year-old gentleman with: 1. COVID-19 positive swabs, who remained largely asymptomatic. 2. The patient has profound dementia. 3. Chronic alcoholism. 4. Pancytopenia, likely due to myelodysplastic syndrome. 5. Wernicke-Korsakoff syndrome. 6. Generalized debility. PLAN: Continue to quarantine him to medical floor. Continue with all his medications as recommended by the psychiatrist. Continue with Lovenox for DVT prophylaxis. His lab work showed slight improvement in white cell count. CHANTALE FERRELL MD DR: BHAVIN/teo JOB#: [id number] / [id number]
[2020-09-18 06:32] VITALS: BP 135/84
[2020-09-18] MEDS: THIAMINE 100 MG TABLET. PO SCH ×2 (08:36→09:00)
[2020-09-18] MEDS: busPIRone 5 MG TABLET. PO SCH ×2 (08:36→21:57)
[2020-09-18] MEDS: MAGNESIUM OXIDE 400 MG TABLET PO SCH ×4 (08:36→21:57)
[2020-09-18] MEDS: GABAPENTIN 100 MG CAPSULE. PO SCH ×3 (08:36→17:02)
[2020-09-18] MEDS: FOLIC ACID 1 MG TABLET PO SCH ×2 (08:36→09:00)
[2020-09-18] MEDS: MULTIVITAMIN with MINERAL TABLET. PO SCH ×2 (08:36→09:00)
--- NOTE | 2020-09-18 14:34 | NUR ---
Nursing note: Pt has remained in bed this shift, yelling out intermittently. He was resistive with his AM meds, he was compliant with buspar and gabapentin but refused the rest. He was angry during assessment this AM and held the call light up as if he was going to hit this nurse. Pt was able to be redirected. Pt is currently resting quietly in his room looking out his window. Will continue to monitor.
[2020-09-18] MEDS: ENOXAPARIN 40 MG/0.4 ML SYRINGE. SQ SCH (17:03)
[2020-09-18 20:03] VITALS: BP 152/88
--- NOTE | 2020-09-18 20:37 | PN ---
DATE: SUBJECTIVE: The patient is resting, slightly propped up in bed, in no apparent distress. He seemed to be much better today. He is not yelling, casting or singing loudly and nursing staff did not voice any concern. When I questioned him, he denied any complaint. PHYSICAL EXAMINATION: GENERAL: When I examined him, he was pale, but no jaundice, cyanosis or thyromegaly. No jugular venous distention. No limb edema. VITAL SIGNS: His heart rate was 83, blood pressure was 135/84, temperature was 97.9, respiratory rate 20 and oxygen saturation was 93%. HEAD, EYES, EARS, NOSE AND THROAT: Showed normocephalic, atraumatic. NECK: Supple. HEART: Normal first and second heart sounds. No gallop or murmur. CHEST: Clear to auscultation. No crepitation or rhonchi. ABDOMEN: Distended, soft, nontender. NEUROLOGIC: He is demented, but without any obvious lateralizing sign. His intake over the last 24 hours was 965, no output was recorded. LABORATORY DATA: As of yesterday, his white cell count was up to 2000, hemoglobin 8.6, hematocrit 26.8, MCV 89 and platelet count of 125,000. Serum sodium was 136, potassium 4, chloride 105, bicarbonate 23, anion gap of 8, BUN 18, creatinine 1, estimated GFR was 71 mL per minute. His glucose was 86, calcium was 8.1. Total bilirubin, AST, ALT, alkaline phosphatase were normal. Total protein 6.4, albumin 2.3. ASSESSMENT: This is an 80-year-old gentleman with: 1. COVID-19 positive swabs who remains asymptomatic. 2. The patient has profound dementia with behavioral disturbances. 3. Chronic alcoholism. 4. Pancytopenia, likely due to myelodysplastic syndrome. 5. Wernicke-Korsakoff syndrome. 6. Generalized debility. PLAN: To continue with quarantine according to him on the medical floor. Continue with all his medications as recommended by psychiatrist. Continue with Lovenox for DVT prophylaxis. His lab work showed slight improvement in his white cell count. CHANTALE FERRELL MD DR: BHAVIN/teo JOB#: [id number] / [id number]
[2020-09-18] MEDS: traZODone 50 MG TABLET. PO PRN (21:57)
[2020-09-19 06:54] VITALS: BP 154/87
[2020-09-19] MEDS: busPIRone 5 MG TABLET. PO SCH ×2 (08:59→20:12)
[2020-09-19] MEDS: GABAPENTIN 100 MG CAPSULE. PO SCH ×3 (08:59→17:41)
[2020-09-19] MEDS: MAGNESIUM OXIDE 400 MG TABLET PO SCH ×3 (08:59→20:11)
[2020-09-19] MEDS: FOLIC ACID 1 MG TABLET PO SCH (08:59)
[2020-09-19] MEDS: MULTIVITAMIN with MINERAL TABLET. PO SCH (08:59)
[2020-09-19] MEDS: THIAMINE 100 MG TABLET. PO SCH (08:59)
[2020-09-19] MEDS: ENOXAPARIN 40 MG/0.4 ML SYRINGE. SQ SCH (14:30)
[2020-09-19] MEDS: traZODone 50 MG TABLET. PO PRN (20:11)
[2020-09-19 20:31] VITALS: BP 144/82
--- NOTE | 2020-09-19 23:06 | NUR ---
Pt in bed with cover over his head when approached for assessment and med pass. Pt irritable, confused, and disorganized. Pt resistive with medications this evening, he took one bite of the medications crushed in pudding and refused to take the rest. Pt initially resistive with vitals and assessment but complied with encouragement.
--- NOTE | 2020-09-20 00:23 | PN ---
DATE: 09/19/2020 SUBJECTIVE: The patient continued to be confused, yelling, screaming, singing loudly and continued to be anorexic with poor oral intake; however, he continued to be asymptomatic and as far as his COVID-19 infection is concerned. OBJECTIVE: GENERAL: On examining him today, he looked pale, but no jaundice, cyanosis or thyromegaly. No jugular venous distention. No limb edema. VITAL SIGNS: His heart rate was 94, blood pressure 154/87, temperature was 98.8, respiratory rate was 18 and oxygen saturation was 94% on room air. The rest of clinical exam is stable. ASSESSMENT: This is an 80-year-old gentleman with: 1. COVID-19 positive swabs, who remains asymptomatic. 2. The patient has profound dementia with behavioral disturbances. 3. Chronic alcoholism. 4. Pancytopenia, likely due to myelodysplastic syndrome. 5. Wernicke-Korsakoff syndrome. 6. Generalized debility. PLAN: To continue with quarantine in medical floor, continued all his medications as recommended by psychiatrist, continue with Lovenox for DVT prophylaxis. His lab work showed some improvement in his white cell count. CHANTALE FERRELL MD DR: BHAVIN/teo JOB#: [id number] / [id number]
[2020-09-20] MEDS: THIAMINE 100 MG TABLET. PO SCH ×2 (08:57→13:32)
[2020-09-20] MEDS: FOLIC ACID 1 MG TABLET PO SCH ×2 (08:57→13:32)
[2020-09-20] MEDS: MAGNESIUM OXIDE 400 MG TABLET PO SCH ×4 (08:57→19:37)
[2020-09-20] MEDS: MULTIVITAMIN with MINERAL TABLET. PO SCH ×2 (08:57→13:32)
[2020-09-20] MEDS: GABAPENTIN 100 MG CAPSULE. PO SCH ×4 (08:57→17:32)
[2020-09-20] MEDS: busPIRone 5 MG TABLET. PO SCH ×3 (08:57→19:38)
--- NOTE | 2020-09-20 12:52 | NUR ---
Patient has been yelling at everyone that enters his room since this shift began. He refused his breakfast tray and is yelling "but I had five" and cannot say five of what. Nurse attempted to give patient his morning medications whole, patient smacked nurses hand. Nurse then crushed medications and put them in one bite of ice cream which patient refused. Nurse reattempted multiple times this morning, patient continued to refuse and to yell when anyone entered his room. Patient is resistive and yelling with cares. He is oriented to himself as usual, but seems to have more expressive aphasia today, which appears to be adding to his bad temper.
[2020-09-20 15:42] VITALS: BP 145/93
--- NOTE | 2020-09-20 16:59 | NUR ---
Patient has continued to yell nonsensical sentences and random words throughout the day. Patient is not eating or drinking. He has been non-compliant with medications this day. Patient did allow [employer]PER[employer]OR to obtain his afternoon vitals.
[2020-09-20] MEDS: ENOXAPARIN 40 MG/0.4 ML SYRINGE. SQ SCH (17:32)
--- NOTE | 2020-09-20 19:33 | PN ---
DATE: 09/20/2020 ATTENDING PHYSICIANS: Dr. Vega and Dr. Mccarty. SUBJECTIVE: The patient is very combative today, abusive, yelling, screaming. He continues to be asymptomatic regarding his COVID-19 infection. OBJECTIVE FINDINGS: VITAL SIGNS: Blood pressure today is 144/82 mmHg, temperature 98.0 degrees Fahrenheit, pulse 94 and regular, oxygen saturation 100% on room air. HEENT: Head is without trauma. Pupils are reactive. Sclerae nonicteric. Oropharynx clear. NECK: Supple. LUNGS: Shallow respirations. CARDIOVASCULAR: Showed regular heart tones. No gallops. ABDOMEN: Soft. EXTREMITIES: Without edema. NEUROLOGIC: Confused and agitated. ASSESSMENT: 1. An 80-year-old gentleman with COVID-19 positive swab. He remains asymptomatic. 2. Profound dementia with aggressive behavior disturbances. 3. Chronic alcoholism. 4. Pancytopenia. 5. Wernicke-Korsakoff syndrome. 6. Generalized debility. PLAN: 1. Continue quarantine. 2. He remains a DNR per advanced directive. 3. Diet as tolerated. 4. Psych meds per Psychiatry. CAROLINE MCCARTY MD DR: ESTEBAN/teo JOB#: [id number] / [id number]
[2020-09-20] MEDS: traZODone 50 MG TABLET. PO PRN (19:37)
[2020-09-20] MEDS: ACETAMINOPHEN 325 MG TABLET PO PRN (19:38)
[2020-09-20 20:04] VITALS: BP 131/59
--- NOTE | 2020-09-20 23:21 | NUR ---
PT YELLING OUT AT START OF SHIFT. UNABLE TO CONSOLE. PT GIVEN HS PILLS CRUSHED IN ONE BITE OF PUDDING. PT REQUIRED SOME COAXING TO TAKE MEDS, BUT DID EVENTUALLY COMPLY. PT CONFUSED AND DELUSIONAL, BELIEVES THIS NURSE IS "ONE OF THE CHILDREN." PRN TRAZODONE ADMINISTERED TO AID SLEEP. PT ADJUSTED IN BED. NOW RESTING COMFORTABLY.
[2020-09-21 06:52] VITALS: BP 128/94
--- NOTE | 2020-09-21 07:26 | NUR ---
PT AGITATED WITH AM CARES. ATTEMPTING TO HIT AND KICK. PT REMAINS CONFUSED AND DELUSIONAL, DIFFICULT TO REDIRECT. PT INCONT OF URINE, BRIEF CHANGED X2 ASSIST. ABLE TO REPOSITION SELF IN BED. PT BED ALARMED FOR SAFETY. YELLING OUT INTERMITTENTLY.
[2020-09-21] MEDS: MULTIVITAMIN with MINERAL TABLET. PO SCH (07:42)
[2020-09-21] MEDS: GABAPENTIN 100 MG CAPSULE. PO SCH ×3 (07:42→16:45)
[2020-09-21] MEDS: busPIRone 5 MG TABLET. PO SCH ×2 (07:42→19:41)
[2020-09-21] MEDS: FOLIC ACID 1 MG TABLET PO SCH (07:42)
[2020-09-21] MEDS: THIAMINE 100 MG TABLET. PO SCH (07:42)
[2020-09-21] MEDS: ACETAMINOPHEN 325 MG TABLET PO PRN (07:43)
[2020-09-21] MEDS: MAGNESIUM OXIDE 400 MG TABLET PO SCH ×3 (07:43→19:41)
--- NOTE | 2020-09-21 08:30 | PDOC ---
Exam Note: Taurus Note: This is a late entry for 09/20/20. Please also refer to the separate dictated note~for this date of service dictated separately.~Patient seen individually. Discussed the patient with Nursing staff reviewed the chart.~Reviewed interim history and current functioning. Reviewed vital signs,~Labs/ Radiology~and curre nt medications noted below. Continue current treatment with the changes noted in the dictated addendum note Assessment: Vital Signs/I&O: Vital Signs Date Time Temp Pulse Resp B/P (MAP) Pulse Ox O2 Delivery O2 Flow Rate FiO2 09/21/20 06:52 97.9 97 18 128/94 (105) 98 Room Air I & O 09/20/20 09/20/20 09/21/20 15:00 23:00 07:00 Intake Total 60 ml 0 ml Output Total 1 ml Balance 60 ml -1 ml Current Medications: I have reviewed the current psychotropics carefully including drug interactions. Risk benefit ratio favors no change other than as noted in my dictated progress note. Diagnosis: Problems: (1) Impulse control disorder, unspecified (2) Anxiety disorder, unspecified (3) Dementia, vascular, with depression (4) Dementia, vascular, with delusions (5) History of alcohol dependence (6) Major neurocognitive disorder (7) Major neurocognitive disorder, due to vascular disease, with behavioral disturbance, mild TL SAMUEL MD Sep 21, 2020 08:29
--- NOTE | 2020-09-21 08:33 | PDOC ---
Exam Note: Taurus Note: This note is a late entry for 09/20/2020 covers elements not covered in my initial note. Subjective: The patient was reviewed on telehealth rounds with Meaghan MOREL morning of 09/20 and again evening of 09/20 as the unit is on a lockdown by the [facility] of COVID-19 exposure on the unit with no admission or discharges can be done. The patient has appeared more confused, intermittently agitated, also earlier in the day and then little better as the day went on. He is still COVID positive and therefore cannot be discharged. Reviewed his psychotropic medications including Neurontin and discussed the option of adding BuSpar for his anxiety and agitation but for now we will leave everything unchanged. Review of Systems: No CV, , pulmonary, eye system symptoms on review. Reliability poor. Ambulation impaired in wheelchair. Mental Status Exam: Per staff observations he is oriented to himself. Insight and judgment, recent and remote memory, attention and concentration, fund of knowledge is poor consistent with his diagnosis. Laboratory Data: Reviewed. Impression: Major neurocognitive disorder Alzheimer vascular with delusion, depression, behavioral disturbance. COVID positive status. Plan: Continue current psychotropics. I have been asked to follow the patient from a psychiatric standpoint per Dr. Vega and will continue to monitor the patient and determine if he needs to be back [facility] once he is medically stable and COVID negative. Assessment: Vital Signs/I&O: Vital Signs Date Time Temp Pulse Resp B/P (MAP) Pulse Ox O2 Delivery O2 Flow Rate FiO2 09/21/20 06:52 97.9 97 18 128/94 (105) 98 Room Air I & O 09/20/20 09/20/20 09/21/20 15:00 23:00 07:00 Intake Total 60 ml 0 ml Output Total 1 ml Balance 60 ml -1 ml Current Medications: I have reviewed the current psychotropics carefully including drug interactions. Risk benefit ratio favors no change other than as noted in my dictated progress note. Diagnosis: Problems: (1) Impulse control disorder, unspecified (2) Anxiety disorder, unspecified (3) Dementia, vascular, with depression (4) Dementia, vascular, with delusions (5) Major neurocognitive disorder (6) Major neurocognitive disorder, due to vascular disease, with behavioral disturbance, mild (7) COVID-19 TL SAMUEL MD Sep 21, 2020 08:33
--- NOTE | 2020-09-21 14:07 | PN ---
DATE: 09/21/2020 ATTENDING PHYSICIAN: Dr. Mccarty. SUBJECTIVE: The patient remains uncooperative. He is abusive and yelling. OBJECTIVE FINDINGS: VITAL SIGNS: Blood pressure is 128/94, temperature 97.9 degrees Fahrenheit, oxygen saturation 98% on room air. The patient refused to allow me to examine him and therefore a physical exam could not be done due to the patient's combative behavior. ASSESSMENT: 1. An 80-year-old gentleman with COVID-19 positive swab. He remains asymptomatic. 2. Profound dementia with very aggressive behavior disturbances. 3. Chronic alcoholism. 4. Pancytopenia. 5. Wernicke-Korsakoff syndrome. 6. Debility. PLAN: 1. Continue COVID quarantine. 2. He remains a DNR per advanced directive. 3. Diet as tolerated. 4. Meds per psychiatry. CAROLINE MCCARTY MD DR: ESTEBAN/teo JOB#: [id number] / [id number]
[2020-09-21] MEDS: ENOXAPARIN 40 MG/0.4 ML SYRINGE. SQ SCH (16:46)
--- NOTE | 2020-09-21 17:24 | NUR ---
NSG NOTE; NOT EATING MEALS: PT REFUSED ALL MEALS TODAY BUT WILL DRINK WATER AND ENSURE WITH ENCOURAGEMENT. HE DOES LIKE ENSURE
--- NOTE | 2020-09-21 17:46 | NUR ---
NSG NOTE; PHONE CONTACT WITH DAUGHTER ENID SHE CALLED AT 1740 AND WAS UPDATED ON PT'S CURRENT CONDITION AND LACK OF ORAL INTAKE. SHE UNDERSTOOD THAT THE CURRENT DISCHARGE PLAN INCLUDES RETURNING TO [facility] ONCE COVID NEGATIVE, THEN SHE WILL LOOK FOR PRISON CARE IN THE [facility]
[2020-09-21] MEDS: traZODone 50 MG TABLET. PO PRN (19:41)
[2020-09-21 19:58] VITALS: BP 115/63
--- NOTE | 2020-09-22 04:11 | NUR ---
Pt slept well up until approx. 0315. Awoke yelling out, unable to console. Pt heavily soiled. Bed bath performed with minimal opposition. Assisted x2 with cares, requires persistent coaching to complete tasks. Pt now sitting up in bed, talking quietly to himself. Offered food and drink, pt took a few sips of water with much encouragement. Pt appears to be sensitive to bright lights and attempts to cover this face with blanket. Pt responds better to staff when lights are dimmed.
[2020-09-22 05:00] VITALS: BP 107/86
[2020-09-22] MEDS: busPIRone 5 MG TABLET. PO SCH ×2 (07:56→20:12)
[2020-09-22] MEDS: GABAPENTIN 100 MG CAPSULE. PO SCH ×3 (07:56→17:00)
[2020-09-22] MEDS: FOLIC ACID 1 MG TABLET PO SCH (07:56)
[2020-09-22] MEDS: MAGNESIUM OXIDE 400 MG TABLET PO SCH ×3 (07:56→20:12)
[2020-09-22] MEDS: THIAMINE 100 MG TABLET. PO SCH (07:56)
[2020-09-22] MEDS: MULTIVITAMIN with MINERAL TABLET. PO SCH (07:56)
--- NOTE | 2020-09-22 09:00 | NUR ---
Assumed care of pt. Pt up in bed. Lungs diminished. Pt alert. Took meds crushed in pudding. Stated he didn't like it. Pt appetite poor. Did take part of a hash brown from aide.
[2020-09-22] MEDS: ENOXAPARIN 40 MG/0.4 ML SYRINGE. SQ SCH (18:00)
--- NOTE | 2020-09-22 19:13 | PN ---
DATE: 09/22/2020 ATTENDING PHYSICIAN: Dr. Mccarty. SUBJECTIVE: The patient unfortunately remains demented, agitated and abusive. He is uncooperative and has no insight. OBJECTIVE FINDINGS: VITAL SIGNS: Today, blood pressure is 107/86 mmHg, temperature 98.0 degrees Fahrenheit, pulse 98 and regular, oxygen saturation 92% on room air. Unfortunately, the patient once again refused to allow me to touch him or examine him, this is due to his dementia and combative behavior. ASSESSMENT: 1. An 80-year-old gentleman with COVID-19 positive swab. He remains asymptomatic at this time. 2. Profound dementia with very aggressive behavior disturbances. 3. History of chronic alcoholism. 4. Wernicke-Korsakoff syndrome. 5. Pancytopenia. 6. Generalized debilitation. PLAN: 1. He will continue COVID quarantine for now. 2. I reviewed his meds. I do not recommend any changes. 3. Diet as tolerated. 4. He remains a DNR per advanced directives. Placement is an issue as there is no family and nursing homes have in the past refused to take him. CAROLINE MCCARTY MD DR: ESTEBAN/teo JOB#: [id number] / [id number]
[2020-09-22 19:35] VITALS: BP 146/95
[2020-09-22] MEDS: ACETAMINOPHEN 325 MG TABLET PO PRN (20:12)
[2020-09-22] MEDS: traZODone 50 MG TABLET. PO PRN (20:12)
--- NOTE | 2020-09-23 06:29 | NUR ---
Pt screaming at change of shift; off and on throughout shift, between sleeping, pt screamed "turn it off," "let it go," "turn it on." Pt does not verbalize many specifics about what he wants besides those particular phrases. Through trial and error we figured out he likes the light on because he is afraid he'll be "more confused with the light off." We turned off the television at one point, which calmed him. Another time a brief change calmed him. Pt says "it all hurts." Tylenol is given for pain. Will continue to monitor.
[2020-09-23] MEDS: busPIRone 5 MG TABLET. PO SCH ×3 (09:00→19:33)
[2020-09-23] MEDS: THIAMINE 100 MG TABLET. PO SCH ×2 (09:00→09:03)
[2020-09-23] MEDS: MULTIVITAMIN with MINERAL TABLET. PO SCH ×2 (09:00→09:03)
[2020-09-23] MEDS: FOLIC ACID 1 MG TABLET PO SCH ×2 (09:00→09:03)
[2020-09-23] MEDS: MAGNESIUM OXIDE 400 MG TABLET PO SCH ×4 (09:02→19:33)
[2020-09-23] MEDS: GABAPENTIN 100 MG CAPSULE. PO SCH ×4 (09:03→17:00)
[2020-09-23 09:21] VITALS: BP 117/79
[2020-09-23] MEDS: ENOXAPARIN 40 MG/0.4 ML SYRINGE. SQ SCH (17:04)
[2020-09-23] MEDS: traZODone 50 MG TABLET. PO PRN ×2 (19:33→19:34)
[2020-09-23] MEDS: ACETAMINOPHEN 325 MG TABLET PO PRN (19:33)
[2020-09-23 19:54] VITALS: BP 114/75
--- NOTE | 2020-09-23 22:17 | PN ---
DATE: 09/23/2020 ATTENDING PHYSICIAN: Dr. Vega. SUBJECTIVE: The patient remains quite agitated, yelling at staff and myself, refuses to be examined, very uncooperative. He has very little insight. OBJECTIVE FINDINGS: VITAL SIGNS: Blood pressure today is 117/79, pulse 104, temperature 100.3 degrees Fahrenheit, oxygen saturation 93% on room air. Physical exam unobtainable due to the patient's agitation. ASSESSMENT: 1. An 80-year-old gentleman with COVID-19 positive swab. New symptom is a fever of 100.3 degrees Fahrenheit today. 2. Profound dementia with aggressive behavior disturbances. 3. Chronic alcoholism. 4. Wernicke-Korsakoff syndrome. 5. Pancytopenia. PLAN: 1. We will continue monitoring his vital signs. He has refused any exam as well as x-rays or blood test. 2. Diet as tolerated. 3. If fever persists, he will need further evaluation. CAROLINE MCCARTY MD DR: ESTEBAN/teo JOB#: [id number] / [id number]
[2020-09-24] MEDS: ACETAMINOPHEN 325 MG TABLET PO PRN (08:27)
[2020-09-24] MEDS: GABAPENTIN 100 MG CAPSULE. PO SCH ×3 (08:27→15:57)
[2020-09-24] MEDS: MULTIVITAMIN with MINERAL TABLET. PO SCH (08:27)
[2020-09-24] MEDS: THIAMINE 100 MG TABLET. PO SCH (08:27)
[2020-09-24] MEDS: MAGNESIUM OXIDE 400 MG TABLET PO SCH ×3 (08:27→20:01)
[2020-09-24] MEDS: FOLIC ACID 1 MG TABLET PO SCH (08:27)
[2020-09-24] MEDS: busPIRone 5 MG TABLET. PO SCH ×2 (08:27→20:01)
[2020-09-24 09:33] VITALS: BP 109/52
[2020-09-24] MEDS: ENOXAPARIN 40 MG/0.4 ML SYRINGE. SQ SCH (15:57)
[2020-09-24] MEDS: traZODone 50 MG TABLET. PO PRN (20:01)
[2020-09-24 20:26] VITALS: BP 147/83
--- NOTE | 2020-09-24 22:56 | PN ---
DATE: 09/24/2020 ATTENDING PHYSICIANS: Dr. Vega, Dr. Mccarty. SUBJECTIVE: The patient remains quite glum, agitated. He is once again refused to allow me to examine him. OBJECTIVE FINDINGS: VITAL SIGNS: Blood pressure today is 109/52, pulse was 90 and regular, temperature 97.7 degrees. Yesterday, he had a T-max of 100.7 degrees Fahrenheit, oxygen saturation 94% on room air. PHYSICAL EXAMINATION: Unobtainable due to the patient's lack of cooperation. ASSESSMENT: 1. An 80-year-old gentleman with COVID-19 positive swab. 2. Slight elevation of the fevers, unclear etiology. 3. Profound dementia with aggressive behavior. 4. Chronic alcoholism. 5. Wernicke-Korsakoff syndrome. PLAN: 1. Continue monitoring. 2. Diet as tolerated. 3. We will monitor for signs of infection and recheck swabs when appropriate. CAROLINE MCCARTY MD DR: ESTEBAN/teo JOB#: [id number] / [id number]
--- NOTE | 2020-09-25 06:34 | NUR ---
pt was in bed for assessment and med pass. pt takes meds crushed in applesauce. pt is incont through the night with multiple brief changes. pt is cooperative with cares and helps role during changing.
[2020-09-25] MEDS: FOLIC ACID 1 MG TABLET PO SCH (07:39)
[2020-09-25] MEDS: THIAMINE 100 MG TABLET. PO SCH (07:39)
[2020-09-25] MEDS: MULTIVITAMIN with MINERAL TABLET. PO SCH (07:39)
[2020-09-25] MEDS: busPIRone 5 MG TABLET. PO SCH ×2 (07:39→20:34)
[2020-09-25] MEDS: GABAPENTIN 100 MG CAPSULE. PO SCH ×3 (07:40→16:45)
[2020-09-25] MEDS: MAGNESIUM OXIDE 400 MG TABLET PO SCH ×3 (07:40→20:34)
[2020-09-25 10:39] VITALS: BP 110/85
--- NOTE | 2020-09-25 12:43 | PN ---
DATE: 09/25/2020 ATTENDING PHYSICIANS: Dr. Vega and Dr. Mccarty. SUBJECTIVE: The patient is a little more alert today. He remains very curmudgeon, refused to be seen and was once again agitated. OBJECTIVE FINDINGS: VITAL SIGNS: Blood pressure today is 110/85, temperature has defervesced. He is down to 98.4 degrees Fahrenheit, room air sats are 95%, pulse is 70 and regular. Physical exam, he refused to allow me to come close and to listen to him nor examine him. ASSESSMENT: 1. An 80-year-old gentleman with COVID-19 positive swabs. He remains asymptomatic. 2. 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 3. Chronic alcoholism. 4. Wernicke-Korsakoff syndrome. PLAN: 1. Continue same regimen. 2. Diet as tolerated. 3. No changes on meds. 4. Recheck COVID swabs when appropriate. CAROLINE MCCARTY MD DR: ESTEBAN/teo JOB#: [id number] / [id number]
[2020-09-25] MEDS: ENOXAPARIN 40 MG/0.4 ML SYRINGE. SQ SCH (16:45)
--- NOTE | 2020-09-25 17:01 | NUR ---
EOS NOTE-Pt continues to be oriented to self only. He has slept off et on all day, yelling out at unseen people during periods of wakefulness. He is verbally abusive toward staff, but makes no attempt at physical violence. PO intakes are poor, he shows no interest in food. Intake is primarily Ensure shakes at mealtimes, which he seems to enjoy. Denies pain in any location. COVID isolation precautions continue at this time.
[2020-09-25 20:14] VITALS: BP 151/115
[2020-09-25] MEDS: traZODone 50 MG TABLET. PO PRN (20:34)
[2020-09-26 06:40] VITALS: BP 130/87
[2020-09-26] MEDS: FOLIC ACID 1 MG TABLET PO SCH (08:00)
[2020-09-26] MEDS: MULTIVITAMIN with MINERAL TABLET. PO SCH (08:01)
[2020-09-26] MEDS: busPIRone 5 MG TABLET. PO SCH ×2 (08:01→21:32)
[2020-09-26] MEDS: THIAMINE 100 MG TABLET. PO SCH (08:01)
[2020-09-26] MEDS: GABAPENTIN 100 MG CAPSULE. PO SCH ×3 (08:01→17:24)
[2020-09-26] MEDS: MAGNESIUM OXIDE 400 MG TABLET PO SCH ×3 (08:01→21:32)
--- NOTE | 2020-09-26 12:18 | PN ---
DATE: 09/26/2020 ATTENDING PHYSICIAN: Dr. Vega and Dr. Mccarty. SUBJECTIVE: Little alert, actually pleasant this morning. Once again, he refused to allow me to examine him. OBJECTIVE FINDINGS: VITAL SIGNS: Today, blood pressure is 130/87, pulse is 80 and regular, temperature 97.5 degrees Fahrenheit, oxygen saturation 92% on room air. PHYSICAL EXAMINATION: Unable to be done due to the patient's refusal to allow me to examine him. ASSESSMENT: 1. An 80-year-old gentleman with COVID-19 positive swabs, he remains asymptomatic. 2. 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 3. Chronic alcoholism. 4. Wernicke-Korsakoff syndrome. PLAN: 1. Continue current regimen. 2. Diet as tolerated. 3. Recheck COVID swabs per schedule. CAROLINE MCCARTY MD DR: ESTEBAN/teo JOB#: [id number] / [id number]
[2020-09-26 16:32] VITALS: BP 133/89
[2020-09-26] MEDS: ENOXAPARIN 40 MG/0.4 ML SYRINGE. SQ SCH (17:25)
[2020-09-26 21:30] VITALS: BP 142/83
[2020-09-26] MEDS: traZODone 50 MG TABLET. PO PRN (21:32)
[2020-09-27 06:32] VITALS: BP 142/82
[2020-09-27] MEDS: MULTIVITAMIN with MINERAL TABLET. PO SCH (07:36)
[2020-09-27] MEDS: GABAPENTIN 100 MG CAPSULE. PO SCH ×3 (07:36→16:52)
[2020-09-27] MEDS: THIAMINE 100 MG TABLET. PO SCH (07:37)
[2020-09-27] MEDS: MAGNESIUM OXIDE 400 MG TABLET PO SCH ×3 (07:37→21:10)
[2020-09-27] MEDS: FOLIC ACID 1 MG TABLET PO SCH (07:37)
[2020-09-27] MEDS: busPIRone 5 MG TABLET. PO SCH ×2 (07:37→21:10)
[2020-09-27 11:05] VITALS: BP 149/72
[2020-09-27] MEDS: ENOXAPARIN 40 MG/0.4 ML SYRINGE. SQ SCH (16:52)
[2020-09-27 19:47] VITALS: BP 138/78
[2020-09-27] MEDS: traZODone 50 MG TABLET. PO PRN (21:10)
[2020-09-27 22:59] LABS: ALBUMIN 2.6 g/dL (3.4-5.0); ALBUMIN/GLOBULIN RATIO 0.5 (1.0-1.7); CALCIUM 9.5 mg/dL (8.5-10.1); CREATININE 1.3 mg/dL (0.7-1.3); GFR 52.9; POTASSIUM 3.7 mmol/L (3.5-5.1); TOTAL BILIRUBIN 0.7 mg/dL (0.2-1.0); TOTAL PROTEIN 7.6 g/dL (6.4-8.2)
[2020-09-27 23:00] LABS: BASO % 1 % (0-3); EOS % 0 % (0-3); HEMATOCRIT 26.1 % (39.0-53.0); HEMOGLOBIN 8.3 g/dL (13.0-17.5); LYMPH # 0.4 x10^3/uL (1.0-4.8); LYMPH % 6 % (24-48); MEAN CORPUSCULAR HEMOGLOBIN 27 pg (25-35); MEAN CORPUSCULAR HGB CONC 32 g/dL (31-37); MEAN CORPUSCULAR VOLUME 86 fL (79-100); MONO # 0.4 x10^3/uL (0.0-1.1); MONO % 7 % (0-9); NEUT # 5.6 x10^3uL (1.8-7.7); NEUT % 87 % (31-73); PLATELET COUNT 310 x10^3/uL (140-400); RED BLOOD COUNT 3.04 x10^6/uL (4.30-5.70); RED CELL DISTRIBUTION WIDTH 17.4 % (11.5-14.5); WHITE BLOOD COUNT 6.5 x10^3/uL (4.0-11.0)
[2020-09-28] MEDS: traZODone 50 MG TABLET. PO PRN ×3 (00:49→20:03)
--- NOTE | 2020-09-28 01:14 | NUR ---
PT has been yelling out throughout the night. PT with O2 desaturations throughout the night. Nasal cannula tried to be applied. PT refusing to keep on. Saturations noted as low as 89% with rolling. PT incontinent multiple times. Barrier cream applied to coccyx and scrotum. PT tolerated lab draw well.
[2020-09-28] MEDS: ACETAMINOPHEN 325 MG TABLET PO PRN ×3 (02:15→16:57)
--- NOTE | 2020-09-28 06:47 | PN ---
DATE: 09/27/2020 SUBJECTIVE: The patient is resting, slightly propped up in bed, eating his lunch comfortably, in no apparent distress. On questioning him, he denied any complaint. Nursing staff stated he continued to be agitated sometimes, yelling, singing loudly; however, he continued to be completely asymptomatic as far as his COVID-19 is concerned. PHYSICAL EXAMINATION: GENERAL: When I examined him this afternoon, he looked well and was clearly in no apparent respiratory distress. He was pale, no jaundice, cyanosis or thyromegaly. No jugular venous distention or limb edema. VITAL SIGNS: His heart rate was 102, blood pressure 149/72, temperature was 98, respiratory rate 20, and oxygen saturation was 91%. HEAD, EYES, EARS, NOSE AND THROAT: Showed normocephalic, atraumatic. NECK: Supple. HEART: Showed normal first and second heart sounds. No gallop or murmur. CHEST: Clear to auscultation. No crepitation or rhonchi. ABDOMEN: Distended, soft, nontender. NEUROLOGIC: He is demented, but without any obvious lateralizing sign. ASSESSMENT: 1. This is an 80-year-old male patient with COVID-19 positive swabs, who remains essentially asymptomatic. 2. 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 3. Chronic alcoholism. 4. Wernicke-Korsakoff syndrome. 5. Pancytopenia, likely due to myelodysplastic syndrome. PLAN: To continue with current regimen. Continue with diet as tolerated. Recheck his COVID swabs as per protocol. CHANTALE FERRELL MD DR: BHAVIN/teo JOB#: [id number] / [id number]
[2020-09-28] MEDS: THIAMINE 100 MG TABLET. PO SCH (08:06)
[2020-09-28] MEDS: busPIRone 5 MG TABLET. PO SCH (08:06)
[2020-09-28] MEDS: GABAPENTIN 100 MG CAPSULE. PO SCH ×3 (08:06→16:57)
[2020-09-28] MEDS: FOLIC ACID 1 MG TABLET PO SCH (08:06)
[2020-09-28] MEDS: MULTIVITAMIN with MINERAL TABLET. PO SCH (08:06)
[2020-09-28] MEDS: MAGNESIUM OXIDE 400 MG TABLET PO SCH ×3 (08:06→20:03)
[2020-09-28 15:23] VITALS: BP 119/51
[2020-09-28] MEDS: ENOXAPARIN 40 MG/0.4 ML SYRINGE. SQ SCH (16:58)
--- NOTE | 2020-09-28 17:37 | NUR ---
NSG NOTE; AGITATION, PSYCH MEDS INCREASED PT AGITATED THIS AFTERNOON WITH CONTINUED CRYING OUT AND NOT RECEPTIVE TO REASSURANCE. DR SAMUEL CALLED WHO ORDERED AN INCREASE IN THE BUSPAR AND GABAPENTIN DOSES.
[2020-09-28] MEDS: busPIRone 10 MG TABLET. PO SCH (20:03)
--- NOTE | 2020-09-29 04:08 | PN ---
DATE: 09/28/2020 SUBJECTIVE: The patient is resting, slightly propped up in bed, in no apparent respiratory distress. He denied any complaint. The nursing staff did not voice any concerns. He is doing well. Continued to be asymptomatic, afebrile and denied any complaint. PHYSICAL EXAMINATION: GENERAL: On examining him, he looked pale. No jaundice, cyanosis or thyromegaly. No jugular venous distention. No limb edema. VITAL SIGNS: Her heart rate was 79, blood pressure was 138/78, temperature was 99.3, respiratory rate 22, and oxygen saturation was 90% on room air. HEAD, EYES, EARS, NOSE AND THROAT: Normocephalic, atraumatic. NECK: Supple. HEART: Showed normal first and second heart sounds. No gallop, rub or murmur. CHEST: Clear to auscultation. No crepitation or rhonchi. ABDOMEN: Distended, soft, nontender. NEUROLOGIC: He is profoundly demented, but without any obvious lateralizing sign. His intake and output were incompletely recorded. LABORATORY DATA: His most recent lab work as of yesterday showed a white cell count 6500, hemoglobin 8.3, hematocrit 26, MCV 86 and platelet count . His chemistry showed a serum sodium of 145, potassium 3.7, chloride 110, bicarbonate 20, anion gap of , BUN 28, creatinine 1.3, estimated GFR was 52 mL per minute. His glucose was 121, calcium was 9.5. Total bilirubin, AST, ALT, alkaline phosphatase were normal. Total protein 7.6, albumin 2.6. His coronavirus PCR was detectable on 09/19/2020. He was swabbed again today; result of this swab is still pending at the time of this dictation. ASSESSMENT: 1. This is an 80-year-old male patient with COVID-19 positive swabs who remains essentially asymptomatic. 2. 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 3. History of chronic alcoholism. 4. Wernicke-Korsakoff syndrome. 5. Pancytopenia that has actually slightly improved. PLAN: To continue with current regimen. Continue with diet as tolerated. He was re-swabbed for COVID today; the results of which is still pending at the time of this dictation. CHANTALE FERRELL MD DR: Naomi JOB#: [id number] / [id number]
[2020-09-29 06:06] VITALS: BP 120/85
[2020-09-29] MEDS: GABAPENTIN 100 MG CAPSULE. PO SCH ×3 (07:26→16:42)
[2020-09-29] MEDS: busPIRone 10 MG TABLET. PO SCH ×2 (07:26→20:26)
[2020-09-29] MEDS: THIAMINE 100 MG TABLET. PO SCH (07:27)
[2020-09-29] MEDS: MAGNESIUM OXIDE 400 MG TABLET PO SCH ×3 (07:27→20:26)
[2020-09-29] MEDS: ACETAMINOPHEN 325 MG TABLET PO PRN ×2 (07:27→20:26)
[2020-09-29] MEDS: MULTIVITAMIN with MINERAL TABLET. PO SCH (07:27)
[2020-09-29] MEDS: FOLIC ACID 1 MG TABLET PO SCH (07:27)
--- NOTE | 2020-09-29 08:23 | PDOC ---
Exam Note: [place] Note: This note is a late entry for 09/28/2020 covers elements not covered in my initial note. Subjective: The patient was reviewed on telehealth rounds in the evening of 09/28/2020 with Sara MOREL. Discussed with nursing staff, reviewed the chart. The patient has been agitated with marked mood lability, anxious, yelling, screaming at times. He remains confused. Repeat COVID-19 screen has been done. Report is awaited. Review of Systems: Ambulation impaired in wheelchair. No CV, , pulmonary, eye, ENT system symptoms on review per nursing observations. Mental Status Exam: The patient is oriented to himself. Insight and judgment, recent and remote memory, attention and concentration, fund of knowledge is poor consistent with his diagnoses. This is similar to how he presented when [facility] my care. Laboratory Data: Reviewed. Impression: Major neurocognitive disorder Alzheimer, vascular with delusion, depression, behavioral disturbance. Anxiety disorder unspecified. Impulse control disorder unspecified. COVID-19 positive status. Plan: The patient is currently on BuSpar 5 mg b.i.d. We will increase to 10 mg b.i.d. and increase the Neurontin from 200 mg t.i.d. to 300 mg t.i.d. and use Zyprexa p.r.n. later if the initial changes are ineffective. In the past with the atypical antipsychotics he would develop hypothermia and we will try and avoid this. Assessment: Vital Signs/I&O: Vital Signs Date Time Temp Pulse Resp B/P (MAP) Pulse Ox O2 Delivery O2 Flow Rate FiO2 09/29/20 06:06 97.5 107 22 120/85 (97) 88 Room Air I & O 09/28/20 09/28/20 09/29/20 15:00 23:00 07:00 Intake Total 320 ml 170 ml 180 ml Balance 320 ml 170 ml 180 ml Current Medications: Meds: Current Medications Medications (Trade) Dose Ordered Sig/Lit Route PRN Reason Start Time Stop Time Status Last Admin Dose Admin Buspirone HCl (Buspar) 10 mg BID PO 09/28/20 21:00 09/29/20 07:26 Gabapentin (Neurontin) 300 mg 0900,1300,1700 PO 09/29/20 09:00 12/18/20 07:26 I have reviewed the current psychotropics carefully including drug interactions. Risk benefit ratio favors no change other than as noted in my dictated progress note. Diagnosis: Problems: (1) Impulse control disorder, unspecified (2) Anxiety disorder, unspecified (3) Dementia, vascular, with depression (4) Dementia, vascular, with delusions (5) Major neurocognitive disorder (6) Major neurocognitive disorder, due to vascular disease, with behavioral disturbance, mild (7) COVID-19 TL SAMUEL MD Sep 29, 2020 08:23
[2020-09-29] MEDS: ENOXAPARIN 40 MG/0.4 ML SYRINGE. SQ SCH (16:42)
[2020-09-29 19:57] VITALS: BP 117/68
[2020-09-29] MEDS: traZODone 50 MG TABLET. PO PRN (20:26)
[2020-09-30] MEDS: busPIRone 10 MG TABLET. PO SCH ×2 (09:19→21:00)
[2020-09-30] MEDS: MULTIVITAMIN with MINERAL TABLET. PO SCH (09:20)
[2020-09-30] MEDS: FOLIC ACID 1 MG TABLET PO SCH (09:20)
[2020-09-30] MEDS: MAGNESIUM OXIDE 400 MG TABLET PO SCH ×3 (09:20→21:00)
[2020-09-30] MEDS: GABAPENTIN 100 MG CAPSULE. PO SCH (09:20)
[2020-09-30] MEDS: THIAMINE 100 MG TABLET. PO SCH (09:20)
[2020-09-30 09:52] VITALS: BP 129/63
[2020-09-30 11:17] LABS: BGAS PH 7.5 (7.35-7.46)
[2020-09-30 11:45] LABS: BASO % 0 % (0-3); EOS % 1 % (0-3); HEMATOCRIT 28.6 % (39.0-53.0); LYMPH # 0.3 x10^3/uL (1.0-4.8); LYMPH % 6 % (24-48); MEAN CORPUSCULAR HEMOGLOBIN 27 pg (25-35); MEAN CORPUSCULAR HGB CONC 32 g/dL (31-37); MEAN CORPUSCULAR VOLUME 86 fL (79-100); MONO # 0.3 x10^3/uL (0.0-1.1); MONO % 5 % (0-9); NEUT # 5.4 x10^3uL (1.8-7.7); NEUT % 89 % (31-73); PLATELET COUNT 334 x10^3/uL (140-400); RED BLOOD COUNT 3.31 x10^6/uL (4.30-5.70); RED CELL DISTRIBUTION WIDTH 18.3 % (11.5-14.5); WHITE BLOOD COUNT 6.1 x10^3/uL (4.0-11.0)
[2020-09-30] MEDS: GABAPENTIN 300 MG CAPSULE. PO SCH ×2 (12:05→17:00)
[2020-09-30 12:13] LABS: ALBUMIN 2.5 g/dL (3.4-5.0); ALBUMIN/GLOBULIN RATIO 0.5 (1.0-1.7); CALCIUM 10.3 mg/dL (8.5-10.1); CREATININE 1.4 mg/dL (0.7-1.3); GFR 48.5; POTASSIUM 3.7 mmol/L (3.5-5.1); TOTAL BILIRUBIN 0.5 mg/dL (0.2-1.0); TOTAL PROTEIN 7.8 g/dL (6.4-8.2)
--- NOTE | 2020-09-30 12:47 | RAD ---
AP portable chest radiograph 09/30/2020 Clinical History: Increasing oxygen requirements. An AP erect portable digital radiograph of the chest was obtained. Comparison study is dated 09/16/2020. A left-sided pacemaker/defibrillator is unchanged in position. The cardiac silhouette is normal in si ze. The thoracic aorta is mildly tortuous. Bilateral perihilar infiltrates are seen which have increa sed since the previous examination. No pneumothorax or large pleural effusion is noted. The osseous s tructures are unchanged. Impression: Increasing bilateral perihilar infiltrates. Electronically signed by: Lion Segal MD (09/30/2020 12:45 PM) [id number]
[2020-09-30 15:45] VITALS: BP 118/57
[2020-09-30] MEDS: IV DEXTROSE 5% 1,000 ML IV SCH (16:15)
[2020-09-30 17:00] VITALS: BP 109/65
[2020-09-30] MEDS: ENOXAPARIN 40 MG/0.4 ML SYRINGE. SQ SCH (17:47)
--- NOTE | 2020-09-30 22:32 | PN ---
DATE: 09/30/2020 SUBJECTIVE: The patient is very lethargic, sleepy. He is borderline hypoxic. Blood gases done this morning showed that his pH was 7.50, pCO2 of 30, pO2 of 44, bicarbonate 24, and his oxygen saturation was 85%. PHYSICAL EXAMINATION: GENERAL: When I examined him, he looked pale, no jaundice, cyanosis or thyromegaly. No jugular venous distention. No lower limb edema. VITAL SIGNS: His heart rate was 110, blood pressure was 129/63, temperature was 97.6, respiratory rate was 36 and oxygen saturation was 91% on 2 liters of oxygen. HEENT: Showed normocephalic, atraumatic. NECK: Supple. HEART: Showed normal first and second heart sounds. No gallop or murmur. CHEST: Showed central trachea, equal bilateral chest expansion, air entry, vesicular sounds. I could not appreciate any crepitation or rhonchi. ABDOMEN: Scaphoid, soft, nontender. NEUROLOGIC: He is very lethargic, but arousable. He does open his eyes and drifts back to sleep. All his cranial nerves are intact. He moves extremities without difficulty, though he is mostly bedbound. His intake over the last 24 hours was 670, no output was recorded. LABORATORY DATA: As of this morning, his white cell count was 6000, hemoglobin 9, hematocrit 29, MCV 86 and platelet count 334,000. His chemistry showed serum sodium is up to 155, potassium 3.7, chloride 118, bicarbonate 26, anion gap of 11, BUN 39, creatinine 1.4, estimated GFR was 48 mL per minute, his glucose 120, lactic acid was 2.2, calcium was 10.3. Total bilirubin, AST, ALT, alkaline phosphatase were normal. His total protein 7.8, albumin was 2.5. His most recent coronavirus-2 PCR on 09/28/2020 was still detectable. ASSESSMENT: 1. This is an 80-year-old male patient with COVID-19 positive swabs, who was still positive on 09/28/2020. 2. The patient is not doing well. He is refusing to eat and drink. His serum sodium is high at 155. His creatinine and BUN are going up, is very lethargic and hypoxic. We have increased his oxygen to 5 liters by nasal cannula. 3. History of chronic alcoholism. 4. Wernicke Korsakoff psychosis. 5. Pancytopenia that has actually slightly improved. PLAN: To continue with current regimen. Continue with diet as tolerated. He was re-swabbed for COVID on 09/28/2020 and was again positive. We did contact his daughter regarding hospice care; however, she wanted everything to be done short of doing a CPR and intubate him. CHANTALE FERRELL MD DR: BHAVIN/teo JOB#: [id number] / [id number]
[2020-10-01 07:11] LABS: BASO % 0 % (0-3); EOS # 0.1 x10^3/uL (0.0-0.7); EOS % 2 % (0-3); HEMATOCRIT 26.4 % (39.0-53.0); HEMOGLOBIN 8.2 g/dL (13.0-17.5); LYMPH # 0.4 x10^3/uL (1.0-4.8); LYMPH % 7 % (24-48); MEAN CORPUSCULAR HEMOGLOBIN 27 pg (25-35); MEAN CORPUSCULAR HGB CONC 31 g/dL (31-37); MEAN CORPUSCULAR VOLUME 87 fL (79-100); MONO # 0.3 x10^3/uL (0.0-1.1); MONO % 5 % (0-9); NEUT # 4.5 x10^3uL (1.8-7.7); NEUT % 85 % (31-73); PLATELET COUNT 282 x10^3/uL (140-400); RED BLOOD COUNT 3.03 x10^6/uL (4.30-5.70); RED CELL DISTRIBUTION WIDTH 18.3 % (11.5-14.5); WHITE BLOOD COUNT 5.3 x10^3/uL (4.0-11.0)
[2020-10-01 07:17] LABS: CALCIUM 9.7 mg/dL (8.5-10.1); CREATININE 1.4 mg/dL (0.7-1.3); GFR 48.5; POTASSIUM 3.5 mmol/L (3.5-5.1)
[2020-10-01] MEDS: busPIRone 10 MG TABLET. PO SCH ×3 (08:47→21:14)
[2020-10-01] MEDS: GABAPENTIN 300 MG CAPSULE. PO SCH ×3 (08:47→16:33)
[2020-10-01] MEDS: MULTIVITAMIN with MINERAL TABLET. PO SCH (09:00)
[2020-10-01] MEDS: MAGNESIUM OXIDE 400 MG TABLET PO SCH ×4 (09:00→21:14)
[2020-10-01] MEDS: FOLIC ACID 1 MG TABLET PO SCH (09:00)
[2020-10-01] MEDS: THIAMINE 100 MG TABLET. PO SCH (09:02)
[2020-10-01 09:07] VITALS: BP 150/76
[2020-10-01 12:32] LABS: % EOS 3 % (0-5); % LYMPHS 9 % (24-48); % MONOS 5 % (0-10); % SEGS 83 % (35-66)
[2020-10-01 12:33] LABS: PLT ESTIMATE ADEQUATE (ADEQUATE)
[2020-10-01] MEDS: IV DEXTROSE 5% 1,000 ML IV SCH ×2 (13:15→17:00)
[2020-10-01] MEDS: ENOXAPARIN 40 MG/0.4 ML SYRINGE. SQ SCH (16:32)
[2020-10-01] MEDS: DEXAMETHASONE SOD PHOS 10 MG/ML VIAL. IV SCH (16:33)
[2020-10-01] MEDS: PIPERACILLIN/TAZOBACTAM 2.25 GM in IV NORMAL SALINE 50ML 50 ML IV SCH (16:33)
[2020-10-01] MEDS ORDERED: REMDESIVIR LOAD in IV NORMAL SALINE 250ML TV IV ONE (17:00)
--- NOTE | 2020-10-01 20:17 | PN ---
DATE: 10/01/2020 SUBJECTIVE: The patient is resting, slightly propped up in bed, clearly very restless, agitated. Apparently, he has not been eating or drinking for the last few days. PHYSICAL EXAMINATION: GENERAL: When I examined him, he looked somewhat pale, cachectic, but no jaundice, cyanosis or thyromegaly. No jugular venous distention. No lower limb edema. VITAL SIGNS: His heart rate was 100, blood pressure 150/76, temperature 97.5, respiratory rate was 30. His oxygen saturation was 91% on 5 liters of oxygen. HEAD, EYES, EARS, NOSE, AND THROAT: Showed normocephalic, atraumatic. NECK: Supple. HEART: Showed normal first and second heart sounds. No gallop or murmur. CHEST: Clear to auscultation. No crepitation or rhonchi. ABDOMEN: Distended, soft, nontender. NEUROLOGIC: He is very demented, but without any obvious lateralizing sign. All his cranial nerves are intact. He moves extremities without difficulty, although he is much more confused today and nonverbal. His intake over the last 24 hours and output were incompletely recorded. LABORATORY DATA: As of this morning showed a white cell count 5300; hemoglobin 8; hematocrit 26; MCV 87 and platelet count 282,000. His chemistry showed sodium has continued to be up about 156, potassium 3.5, chloride 120, bicarbonate 25, anion gap of 11, BUN 38, creatinine 1.4. His estimated GFR was 48 mL per minute. His glucose 121, calcium was 9.7. Lactic acid was 2.2. ASSESSMENT: This is an 80-year-old male patient with COVID-19 positive swabs, who continues to be positive and who is now somewhat more agitated. He is not eating or drinking and his sodium is high. His kidney function is worsening. His serum sodium if anything went up higher and his creatinine and BUN are going up, very lethargic and hypoxic, I did increase his oxygen and started him on D5W and increased the flow rate to 150 mL per hour. 1. History of chronic alcoholism. 2. Wernicke-Korsakoff psychosis. 3. Pancytopenia that has actually resolved. His white cell count and platelet count in fact has normalized. However, he continued to have normochromic normocytic anemia. PLAN: My plan is to repeat his chest x-ray, apparently his daughter was contacted regarding hospice care; however, she wanted everything to be done, doing CPR and intubating him. CHANTALE FERRELL MD DR: BHAVIN/teo JOB#: [id number] / [id number]
[2020-10-01 20:39] VITALS: BP 160/76
--- NOTE | 2020-10-01 23:50 | RAD ---
Exam: Chest one view INDICATION: Worsening hypoxia and shortness of breath TECHNIQUE: Frontal view of the chest Comparisons: 09/30/2020 FINDINGS: Pacer with leads terminating the right atrium and ventricle. The cardiomediastinal silhouette and pulmonary vessels are within normal limits. Diffuse hazy airspace disease. Small bilateral pleural effusion. IMPRESSION: Findings of fluid pulmonary edema with small bilateral pleural effusions. Superimposed infectious pro cess is difficult exclude. Electronically signed by: Henrik Duffy MD (10/01/2020 11:47 PM) ANA MARÍA
[2020-10-02] MEDS: IV DEXTROSE 5% 1,000 ML IV SCH ×3 (00:30→12:34)
[2020-10-02] MEDS: PIPERACILLIN/TAZOBACTAM 2.25 GM in IV NORMAL SALINE 50ML 50 ML IV SCH ×3 (00:59→16:00)
[2020-10-02] MEDS: FOLIC ACID 1 MG TABLET PO SCH (08:08)
[2020-10-02] MEDS: busPIRone 10 MG TABLET. PO SCH ×2 (08:08→21:00)
[2020-10-02] MEDS: GABAPENTIN 300 MG CAPSULE. PO SCH ×3 (08:09→21:07)
[2020-10-02] MEDS: MAGNESIUM OXIDE 400 MG TABLET PO SCH ×3 (08:09→21:00)
[2020-10-02] MEDS: MULTIVITAMIN with MINERAL TABLET. PO SCH (08:09)
[2020-10-02] MEDS: THIAMINE 100 MG TABLET. PO SCH (08:09)
[2020-10-02] MEDS: DEXAMETHASONE SOD PHOS 10 MG/ML VIAL. IV SCH (09:46)
[2020-10-02 11:00] VITALS: BP 168/84
--- NOTE | 2020-10-02 11:42 | NUR ---
PT IS NO LONGER TAKING ANY PO. HE IS NOT ALERT ENOUGH, ET DOES NOT FOLLOW DIRECTION.
[2020-10-02 15:39] LABS: HEMATOCRIT 29.2 % (39.0-53.0); HEMOGLOBIN 9.1 g/dL (13.0-17.5); RED BLOOD COUNT 3.37 x10^6/uL (4.30-5.70); RED CELL DISTRIBUTION WIDTH 18.7 % (11.5-14.5); WHITE BLOOD COUNT 4.5 x10^3/uL (4.0-11.0)
[2020-10-02 15:54] LABS: CALCIUM 9.4 mg/dL (8.5-10.1); GFR 71.5; POTASSIUM 5.6 mmol/L (3.5-5.1)
[2020-10-02 16:00] LABS: ALBUMIN 2.3 g/dL (3.4-5.0); ALBUMIN/GLOBULIN RATIO 0.4 (1.0-1.7); TOTAL BILIRUBIN 0.7 mg/dL (0.2-1.0); TOTAL PROTEIN 7.6 g/dL (6.4-8.2)
[2020-10-02] MEDS: MORPHINE SULFATE 2 MG/ML DISP.SYRIN. IV PRN ×2 (16:05→21:11)
[2020-10-02] MEDS ORDERED: REMDESIVIR 100mg in NORMAL SALINE 250ML X 4 DAYS IV SCH (17:00)
--- NOTE | 2020-10-02 19:28 | PN ---
DATE: 10/02/2020 SUBJECTIVE: The patient is doing poorly. Today, he is extremely tachypneic, hypoxic. He was requiring 10 liters of oxygen to maintain his oxygen saturation around 92%. PHYSICAL EXAMINATION: GENERAL: When I examined him, he looked pale, cachectic, but no jaundice, cyanosis or thyromegaly. No jugular venous distention. No lower limb edema. VITAL SIGNS: Her heart rate was 81, blood pressure was 168/84, temperature was 95.2, respiratory rate was 38 and oxygen saturation was 92% on 2 liters of oxygen by nonrebreather mask. HEAD, EYES, EARS, NOSE, AND THROAT: Showed normocephalic, atraumatic. NECK: Supple. HEART: Showed normal first and second heart sounds. No gallop, rub or murmur. CHEST: Shows central trachea, equal bilateral chest expansion, air entry with bilateral basal crepitation. I could not appreciate any wheezing. ABDOMEN: Scaphoid, soft, nontender. NEUROLOGIC: He is very encephalopathic; however, he moves extremities spontaneously. He gets at times very restless, agitated. His intake over the last 24 hours was incompletely recorded. LABORATORY DATA: Today's labs are still pending at the time of this dictation. His serum sodium was 156, potassium 3.5, chloride 120, bicarbonate 25, anion gap of 11, BUN 38, creatinine 1.4, estimated GFR was 48 mL per minute, his glucose 121, calcium was 9.7. His white cell count was 5300; hemoglobin 8.2; hematocrit 26; MCV 87 and platelet count 282,000. ASSESSMENT: 1. COVID-19 pneumonia. 2. Acute hypoxic hypercapnic respiratory failure. 3. Severe hypernatremia. 4. Other medical problems include: A. Chronic alcoholism. B. Wernicke-Korsakoff psychosis. C. Pancytopenia that has actually improved. PLAN: My plan is to discontinue the IV fluid as I am concerned that he is now with going into pulmonary edema. I will repeat all his lab work including stat CBC, CMP and BMP. We will try and get her daughter [id number] time to see him to decide on further management. CHANTALE FERRELL MD DR: BHAVIN/teo JOB#: [id number] / [id number]
--- NOTE | 2020-10-02 21:00 | NUR ---
On assessment, PT struggling to breathe. PT suctioned multiple times. PT has PRN morphine and Ativan, will be given.
[2020-10-02] MEDS: ENOXAPARIN 40 MG/0.4 ML SYRINGE. SQ SCH (21:11)
--- NOTE | 2020-10-02 21:56 | NUR ---
14-Fr suction catheter used after attempts with Daron. PT's work of breathing lessened.
[2020-10-02 23:00] VITALS: BP 124/93
[2020-10-03] MEDS: MORPHINE SULFATE 2 MG/ML DISP.SYRIN. IV PRN ×5 (01:05→11:59)
[2020-10-03 07:33] LABS: ALBUMIN 2.9 g/dL (3.4-5.0); ALBUMIN/GLOBULIN RATIO 0.5 (1.0-1.7); CALCIUM 9.8 mg/dL (8.5-10.1); CREATININE 1.5 mg/dL (0.7-1.3); GFR 44.8; POTASSIUM 4.4 mmol/L (3.5-5.1); TOTAL BILIRUBIN 0.4 mg/dL (0.2-1.0); TOTAL PROTEIN 8.5 g/dL (6.4-8.2)
[2020-10-03] MEDS: DEXAMETHASONE SOD PHOS 10 MG/ML VIAL. IV SCH (09:00)
[2020-10-03] MEDS: MULTIVITAMIN with MINERAL TABLET. PO SCH (09:00)
[2020-10-03] MEDS ORDERED: SCOPOLAMINE 1.5MG PATCH. TD SCH (09:00)
[2020-10-03] MEDS: GABAPENTIN 300 MG CAPSULE. PO SCH ×2 (09:00→10:58)
[2020-10-03] MEDS: MAGNESIUM OXIDE 400 MG TABLET PO SCH ×2 (09:00→10:58)
[2020-10-03] MEDS: FOLIC ACID 1 MG TABLET PO SCH (09:00)
[2020-10-03] MEDS: THIAMINE 100 MG TABLET. PO SCH (09:00)
[2020-10-03] MEDS: busPIRone 10 MG TABLET. PO SCH (09:00)
--- NOTE | 2020-10-03 13:08 | NUR ---
NSG NOTE; PT I WENT INTO PT'S ROOM AT 1205 AND PT WAS BREATHING VERY SHALLOWLY. DURING THE COURSE OF THE NEXT 20 MINUTES, HIS RESP SLOWED AND STOPPED. MYSELF AND OSEI CORDERO LISTENED TO PT'S CHEST X 2 MINUTES EACH WITH NO RESP OR HEART BEATS NOTED PT PRONOUNCED AT 1233. NURSING WORK TICKET DISTRIBUTOR NOTIFIED AT 1240 DR FERRELL NOTIFIED AT 1245 DAUGHTER ENID HSIEH NOTIFIED AT 1255. SHE WILL CALL BACK SOON WITH A HOME SELECTION.
--- NOTE | 2020-10-03 15:03 | NUR ---
NSG NOTE; RELEASE OF BODY BODY RELEASED TO [facility] AT 1455. ALL OF PT'S PERSONAL BELONGINGS, INCLUDING GLASSES AND SUITCASE FULL OF CLOTHES, SENT ALONG WITH BODY
--- NOTE | 2020-11-02 12:03 | DS ---
DATE OF DISCHARGE: 10/03/2020 HOSPITAL COURSE: The patient is an 80-year-old male patient who was transferred from [facility] on account of being positive for COVID-19 coronavirus infection. Initially, the patient has no symptoms, in particular the patient denied any chest pain, shortness of breath, has no fever and chest x-ray showed trace bilateral pleural effusion that are chronic in nature, but no acute infiltrate identified. The patient remained asymptomatic for a while and he obviously was on quarantine given that he was positive for coronavirus; however, he became symptomatic with worsening shortness of breath, hypoxia. The patient also has been refusing to eat and drink. He has become very dehydrated. His sodium was high at 155. We did start him on IV fluid and his symptoms have dramatically worsened and we did spoke with his daughter multiple times regarding his worsening condition and how his oxygen requirement has dramatically risen and his chest x-ray showed worsening infiltrate and the daughter agreed to change him to his code status DNR/DNI and despite treatment with IV antibiotics and IV fluid and dexamethasone, the patient's condition steadily worsened and on 10/03, patient was found to be unresponsive with no spontaneous breathing, no palpable pulses, audible heart sounds and the patient was pronounced at 12:33 on 10/03/2020. CAUSE OF : 1. COVID-19 pneumonia. 2. Acute hypoxic hypercapnic respiratory failure. 3. Acute kidney injury. 4. Pancytopenia. 5. Wernicke-Korsakoff psychosis. CHANTALE FERRELL MD DR: BHAVIN/teo JOB#: [id number] / [id number]
== END 2020-10-03 15:00 | DRG 177 ==
LOC: 1 SOUTH 18:01
PROVIDERS: ADMIT Hospitalist; ATTEND Hospitalist
PROC: XW033E5 Introduction of Remdesivir Anti-infective into Peripheral Vein, Percutaneous Approach, New Technology Group 5 (ICD-10-PCS; principal; 2020-10-01)
DX: U07.1 COVID-19 (principal); J12.89 Other viral pneumonia; J96.01 Acute respiratory failure with hypoxia; J96.02 Acute respiratory failure with hypercapnia; E43 Unspecified severe protein-calorie malnutrition; D61.818 Other pancytopenia; E87.0 Hyperosmolality and hypernatremia; F01.51 Vascular dementia, unspecified severity, with behavioral disturbance; F02.81 Dementia in other diseases classified elsewhere, unspecified severity, with behavioral disturbance; Z68.1 Body mass index [BMI] 19.9 or less, adult; N17.9 Acute kidney failure, unspecified; F10.26 Alcohol dependence with alcohol-induced persisting amnestic disorder; D50.9 Iron deficiency anemia, unspecified; F17.200 Nicotine dependence, unspecified, uncomplicated; F32.9 Major depressive disorder, single episode, unspecified; F41.9 Anxiety disorder, unspecified; F63.9 Impulse disorder, unspecified; G30.9 Alzheimer's disease, unspecified; Z66 Do not resuscitate; F04 Amnestic disorder due to known physiological condition; D46.9 Myelodysplastic syndrome, unspecified; E86.0 Dehydration
CPT/HCPCS: 36415; 36600; 71045; 80048; 80053; 82803; 83605; 83880; 85007; 85025; 85027; 87040; 87493; J1100; J1650; J2060; J2270; J2543; J7050; U0003